=== PATIENT | female | born 1960 | race Caucasian/White ===

== ENCOUNTER → 2017-07-10 16:34 | Outpatient (REF) | payer MEDICARE, MEDICAID, SELFPAY ==
[2017-07-10 19:45] LABS: Basophils % 0.7 % (0.1-2.0); Eosinophils % 0.7 % (0.1-12.0); Hemoglobin 13.7 g/dL (12.2-16.2); Lymphocytes # 1.3 K/mm3 (0.7-4.5); Lymphocytes % 31.4 K/mm3 (10-50); Mean Corpuscular HGB Conc 31.9 g/dL (31.8-35.4); Mean Corpuscular Hemoglobin 30.2 pg (27.0-31.2); Mean Corpuscular Volume 94.5 fl (81-99); Mean Platelet Volume 9.6 fl (7.4-10.4); Monocytes # 0.3 K/mm3 (0.1-1.0); Monocytes % 7.8 % (1.7-9.3); Neutrophils # 2.5 K/mm3 (1.8-7.8); Neutrophils % 59.5 % (37.0-80.0); Platelet Count 232 K/mm3 (142-424); Red Blood Count 4.55 M/mm3 (4.20-5.40); Red Cell Distribution Width 12.7 % (11.5-17.5); White Blood Count 4.2 K/mm3 (4.8-10.8)
[2017-07-10 20:40] LABS: Alanine Aminotransferase 21 U/L (12-78); Albumin Level 3.9 gm/dL (3.4-5.0); Albumin/Globulin Ratio 1.2 (1.1-1.8); Alkaline Phosphatase 65 U/L (46-116); Anion Gap 15.1 mEq/L (5-15); Aspartate Amino Transferase 19 U/L (15-37); Bilirubin,Total 0.5 mg/dL (0.2-1.0); Blood Urea Nitrogen 21 mg/dL (7-18); Carbon Dioxide 28 mmol/L (21.0-32.0); Chloride 104 mmol/L (98-107); Cholesterol 255 mg/dL (140-200); Creatinine,Serum 0.79 mg/dL (0.55-1.02); Estimated Glomerular Filt Rate 75 ml/min (>60); GFR (African American) 90 ML/MIN (>60); Globulin 3.2 gm/dl (1.3-3.2); Glucose 74 mg/dL (74-106); HDL Cholesterol 85 mg/dL (29-89); LDL Cholesterol 148 mg/dL (0-130); Potassium 4.1 mmoL/L (3.5-5.1); Sodium 143 mmol/L (136-145); Thyroid Stimulating Hormone 0.68 uIU/ml (0.358-3.740); Total Protein,Serum 7.1 gm/dL (6.4-8.2); Triglycerides 112 mg/dL (30-200); VLDL Cholesterol 22 mg/dL (0-40)
== END ==
LOC: LAB 16:34
PROVIDERS: Visit Provider Physician Assistant
DX: E03.9 Hypothyroidism, unspecified (principal)
CPT/HCPCS: 80053; 80061; 84436; 84443; 85025

== ENCOUNTER → 2017-07-24 10:42 | Outpatient (POV) | payer MEDICARE, MEDICAID, SELFPAY ==
[2017-07-24 10:58] VITALS: BP 125/82; PULSE 85; RESP 18; TEMP 36.8; O2SAT 96; BMI 21.4
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
[2017-07-24 13:05] LABS: Amphetamine/Metha Screen,Urine Negative ng/mL (<1000); Barbiturates Screen,Urine Negative ng/mL (<200); Benzodiazepines Screen,Urine Negative ng/mL (200); Cannabinoid Screen,Urine Negative ng/mL (<50); Cocaine Screen,Urine Negative ng/g (<300); Methadone Screen,Urine Negative ng/mL (<300); Opiate Screen,Urine Negative ng/mL (<300); Phencyclidine Screen,Urine Negative ng/mL (<25)
--- NOTE | 2017-07-25 09:34 | PC.PHONENOTE ---
07/24/17-called in Rx for Zanaflex 4mg TID with 2 refills and Gabapentin 600mg TID with 2 refills to pt pharmacy per provider order
[2017-07-30 12:15] LABS: Oxycodone (GC/MS) >100 ng/mL (Cutoff=100)
[2017-07-31 06:27] LABS: Opiates Negative (Cutoff=100)
== END ==
PROVIDERS: Family Provider Physician Assistant; PCP Physician Assistant; Visit Provider Clinical Nurse Specialist Family Health
DX: M47.812 Spondylosis without myelopathy or radiculopathy, cervical region (principal); Z79.899 Other long term (current) drug therapy
CPT/HCPCS: 80305; 80361; 80365; 99212; G0480

== ENCOUNTER 2017-08-30 13:16 | Day surgery (SDC) | payer MEDICARE, MEDICAID, SELFPAY ==
[2017-08-30 13:28] VITALS: BP 147/91; PULSE 82; RESP 18; TEMP 36.4; O2SAT 99; BMI 21.8
[2017-08-30 13:40] VITALS: BP 140/85; PULSE 80; RESP 18
[2017-08-30 13:46] VITALS: BP 138/72; PULSE 65; RESP 18
[2017-08-30 13:48] VITALS: BP 141/96; PULSE 80; RESP 18; O2SAT 97
--- NOTE | 2017-08-30 13:52 | P.PCN_ITS ---
- Procedure Date: 08/30/17 Time: 13:50 Anesthesiologist:: Eber Liz MD Complications:: None Pre-procedure Diagnosis:: Right shoulder pain with degenerative osteoarthritis Post-procedure Diagnosis:: Same Indications for Procedure:: This patient is a pleasant 57-year-old white female who we are treating for neck pain with cervical radicular symptoms. She has increased right shoulder pain. She is tender over the AC joint. We will do a right shoulder intra- articular injection today. Procedure Details:: Right shoulder injection Informed consent was obtained and the risk and benefits of the procedure was explained to the patient. Patient was taken to the procedure room. The right shoulder was prepped using ChloraPrep. A 25-gauge needle was used we injected 10 mL bupivacaine 0.25% and Depo-Medrol 40 mg into the right shoulder. The patient tolerated the procedure well with no complications. Plan and Disposition:: We will follow-up with this patient in 2 weeks. Will reevaluate symptoms at that time.
== END 2017-08-30 13:50 | disposition home or self-care (01) ==
LOC: SC.PAINP 13:17
PROVIDERS: Family Provider Physician Assistant; PCP Physician Assistant; Visit Provider Anesthesiology
DX: M19.011 Primary osteoarthritis, right shoulder (principal)
CPT/HCPCS: 20610

== ENCOUNTER → 2017-09-17 09:42 | Outpatient (POV) | payer MEDICARE, MEDICAID, SELFPAY ==
[2017-09-17 10:02] VITALS: BP 128/86; PULSE 82; RESP 18; BMI 21.4
--- NOTE | 2017-09-17 10:14 | HMH.PAINSOAP ---
[facility] Pain Management SOAP Note Subjective:: Patient is a pleasant 57-year-old white female who presents today for follow-up after a right shoulder intra-articular injection. Patient is doing very well stating that her shoulder pain has dissipated 85%. Patient is currently being medically managed for pain secondary to degenerative disc disease of the cervical spine and cervical spondylosis. We are medically managing her with oxycodone 5 mg 1 p.o. 3 times daily and gabapentin 600 mg 1 p.o. 3 times daily. Patient states she is not having any side effects of these medications. Patient is having some episodes where he feels like she faints. Patient and I had a long discussion about potentially a cardiac workup. And is been a contact her PCP today. ROS General: no recent weight change, no fever, no sleep disturbances Respiratory: no cough, no shortness of air, no recurring pulmonary infections Cardiovascular/Peripheral Vascular: No chest pain, No palpitations, no edema, no shortness of breath. Gastrointestinal: no incontinence, normal bowel movements reported Genitourinary: no incontinence Musculoskeletal: Neck pain, right shoulder pain, low back pain, thoracic pain Psychiatric: normal mood/ affect Neurological: [denies weakness in extremities], [denies balance issues] Objective:: Physical Exam General: Alert and oriented x3, no acute distress, pleasant and cooperative, [on room air] Lungs: Resps E/U, Symmetrical chest expansion, Eyes: PERRL Musculoskeletal: Flexion and extension of cervical and lumbar spine somewhat guarded secondary to pain, deep tendon reflexes normal, strength in upper and lower extremities [5/5], antalgic gait noted Neurological: speech clear, bar attendant equal, no gross sensory deficits Assessment:: Myofascial pain, degenerative disc disease of the cervical spine, cervical spondylosis Plan:: Patient is due refills today we will refill her oxycodone 5 mg 1 p.o. 3 times daily and her gabapentin 600 mg 1 p.o. 3 times daily. Patient's UDS has been appropriate in the past. Patient's GLORY #[id number] reviewed and appropriate. I will follow-up with this patient in 3 months. 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 Dr. Liz has reviewed this chart and agrees with this plan of care. Patient has been prescribed a controlled substance after being counseled on the medication, medication safety, and possible side effects. GLORY report has been obtained and reviewed prior to prescription and found to be appropriate. Opioid contract was reviewed and signed by the patient, and that they have agreed to all of the terms set forth by our compliance program. This note was dictated using voice recognition software and may contain errors or omissions
== END ==
PROVIDERS: Family Provider Physician Assistant; PCP Physician Assistant; Visit Provider Clinical Nurse Specialist Family Health
DX: M47.812 Spondylosis without myelopathy or radiculopathy, cervical region (principal)
CPT/HCPCS: 99212

== ENCOUNTER → 2017-09-19 08:56 | Outpatient (CLI) | payer MEDICARE, MEDICAID, SELFPAY | PROVIDERS: PCP Physician Assistant; Visit Provider Physician Assistant | DX: R55 Syncope and collapse (principal) | CPT/HCPCS: 93225; 93226 ==

== ENCOUNTER 2017-10-24 09:42 | Observation (INO) ==
--- NOTE | 2017-10-24 10:15 | Emergency Department Note ---
ED Disposition Clinical Impression: Syncope and collapse Hypotension Qualifiers: Hypotension type: unspecified hypotension type Qualified Code(s): I95.9 - Hypotension, unspecified Fracture of distal fibula Qualifiers: Encounter type: initial encounter Fracture type: closed Fracture morphology: unspecified fracture morphology Laterality: left Qualified Code(s): S82.832A - Other fracture of upper and lower end of left fibula, initial encounter for closed fracture Nasal contusion Qualifiers: Encounter type: initial encounter Qualified Code(s): S00.33XA - Contusion of nose, initial encounter Disposition: Still a Patient Condition on Discharge: Fair Referrals: Lulu Noyola PA [Primary Care Provider] - - Critical Care Critical Care Time: Yes Attestation: On 10/24/17, the high probability of a clinically significant, sudden or life threatening deterioration of the following system(s) required my full and direct attention, intervention and personal management. The time I documented below is in addition to time spent performing reported procedures but includes the following listed in this critical care notation. Total Critical Care Time: 45 Vital system(s) involved:: Circulatory Failure My critical care processes included: Assessment & monitoring of V/S, Initial and Re-exams, Data Review/Interpretation, Coordinating Care, Medication Orders and management, Documentation Medical Decision Making - Daniele Inquiry Pt receiving controlled substance: No Vital Signs: 10/24/17 10:00 10/24/17 11:36 10/24/17 12:47 Temperature 98.0 F Temperature Source Oral Pulse Rate [Right Brachial] 110 H 78 70 Respiratory Rate 16 18 18 Blood Pressure [Left Arm] 70/55 83/55 95/60 Blood Pressure Mean [Left Arm] 60 64 71 Blood Pressure Source [Left Arm] Automatic Cuff Automatic Cuff Automatic Cuff Blood Pressure Position [Left Arm] Sitting Sitting 02 Sat by Pulse Oximetry 100 99 100 Oxygen Delivery Method Room Air Room Air Room Air 10/24/17 13:49 Temperature Temperature Source Pulse Rate [Right Brachial] 72 Respiratory Rate 18 Blood Pressure [Left Arm] 106/72 Blood Pressure Mean [Left Arm] 83 Blood Pressure Source [Left Arm] Automatic Cuff Blood Pressure Position [Left Arm] Sitting 02 Sat by Pulse Oximetry 100 Oxygen Delivery Method Room Air - Lab Data Lab Results 10/24/17 10:05: WBC 6.3, RBC 3.84 L, Hgb 11.9 L, Hct 35.9 L, MCV 93.4, MCH 30.8 , MCHC 33.0, RDW 13.3, Plt Count 211, MPV 8.5, Neut % (Auto) 68.9, Lymph % (Auto ) 22.0, Rhea % (Auto) 7.5, Eos % (Auto) 1.1, Baso % (Auto) 0.6, Neut # (Auto) 4.3, Lymph # (Auto) 1.4, Rhea # (Auto) 0.5, Eos # (Auto) 0.1, Baso # (Auto) 0.0 10/24/17 10:05: Sodium 139, Potassium 4.5, Chloride 103, Carbon Dioxide 27, Anion Gap 13.5, BUN 18, Creatinine 1.88 H, Estimated Creat Clear 34, Estimated GFR 27 L, Est GFR ( Amer) 33 L, Glucose 153 H, Calcium 8.0 L, Total Bilirubin 0.3, AST 43 H, ALT 39, Alkaline Phosphatase 113, Troponin I < 0.02, Total Protein 6.8, Albumin 3.3 L, Globulin 3.5 H, Albumin/Globulin Ratio 0.9 L, TSH 0.73, Free T4 Index 1.5 L, Thyroxine (T4) 5.2, T3 Uptake 29 L 10/24/17 11:50: Lactic Acid 1.1 10/24/17 11:50: Urine Color Yellow, Urine Appearance Sl cloudy, Urine pH 5.5, Ur Specific [place] >= 1.030, Urine Protein 1+, Urine Glucose (UA) Negative, Urine Ketones Trace, Urine Blood Negative, Urine Nitrate Negative, Urine Bilirubin Negative, Urine Urobilinogen 0.2, Ur Leukocyte Esterase 1+ A Result diagrams: 10/24/17 10:05 10/24/17 10:05 Orders (Tests/Meds): ED MEDICATIONS Discontinued Medications Generic Name Dose Route Start Last Admin Trade Name Freq PRN Reason Stop Dose Admin Sodium Chloride 1,000 mls @ 999 mls/hr 10/24/17 10:30 10/24/17 11:02 Sod Chlor 0.9% 1000ml Bag IV 10/24/17 11:30 999 mls/hr .Q1H1M PRITI Administration Sodium Chloride 500 mls @ 999 mls/hr 10/24/17 11:45 10/24/17 11:42 Sod Chlor 0.9% 1000ml Bag IV 10/24/17 12:15 999 mls/hr .Q31M PRITI Administration Sodium Chloride 1,000 ml 10/24/17 11:36 10/24/17 11:38 Sod Chlor 0.9% 1000ml Bag IV 10/24/17 11:37 1,000 ml BOLUS ONE Administration ORDERS Category Date Time Status UA [Urinalysis and Microscopic] Stat Lab 10/24/17 11:50 Results Blood Culture Stat Micro 10/24/17 12:00 Received Urine Culture Stat Micro 10/24/17 11:50 Received - Radiology Data #1 Image(s): Chest, Nasal Bones, Ankle Image Reviewed: Yes I discussed the image results w/the radiologist Chest: Negative Nasal Bones: Negative Left ankle: Nondisplaced distal fibular fracture - ECG Data Tracing #1 EKG interpreted by Dhiraj Childs MD: Rhythm: sinus Rate: 82 [place]: normal Ectopy: none Conduction: normal ST Segment Changes: none T Wave Changes: none Q Waves: none No evidence of acute ischemia or injury - Physician Consults Physician Consulted: Bess Time: 13:51 Reason -: Admission Comment/Response: I have discussed the case with Dr. Kellogg who agrees to admit the patient to the hospital. We discussed the patient's clinical information, including history, exam, laboratory and radiology results and ED course. Per hospital procedure, I will write temporary bridge inpatient orders on the patient. Specific orders requested by the admitting physician: Continue IV fluids. Consult cardiology. Carotid Dopplers. General Adult HPI - General Stated complaint: AO [id number] L ankle pain Time Seen by Provider: 10/24/17 10:05 - History of Present Illness HPI narrative: Past out last evening and injured her left ankle. She says that she passed out 3 times and injured her nose the first time as well. She has some bruising, swelling, and abrasion of her nose, but had no epistaxis. Has bruising and swelling and left ankle pain. Has been having episodes of syncope for more than 6 months. She has had extensive workup including a left heart cath and Holter monitor. She is seen Dr. Chilel and Dr. PARKS for cardiology evaluation. She says she is supposed to get a loop recorder. No cause for the syncope has been found. She says that episodes have been witnessed and she does not have seizure activity. She says that the episodes of syncope are generally without any warning, sometimes she will feel a little shaky beforehand. Almost always occurs at night and when upright. Does not always occur immediately after standing, sometimes after she has been standing for some time. Occasionally during the day and she is upright she will get lightheaded, but does not typically pass out. However, did pass out yesterday during the daytime when she went to vote. No new medications or changes in medication. C/O being thirsty. - Related Data Home Medications Medication Instructions Recorded Confirmed oxycodone 5 mg capsule 5 mg PO TID PRN cap 07/10/17 10/24/17 gabapentin 600 mg tablet 600 mg PO TID MDD pn 09/19/17 10/24/17 venlafaxine ER 75 mg 75 mg PO QHS 10/04/17 10/24/17 capsule,extended release 24 hr aspirin 81 mg tablet,delayed 81 mg PO DAILY tab 10/23/17 10/24/17 release atorvastatin 20 mg tablet 20 mg PO QHS tab 10/23/17 10/24/17 diclofenac sodium 75 mg 75 mg PO BID 10/23/17 10/24/17 tablet,delayed release estradiol 0.5 mg tablet 0.5 mg PO DAILY tab 10/23/17 10/24/17 Quetiapine Fumarate 100 mg PO QHS 10/24/17 10/24/17 Thyroid,Pork [Chinquapin Thyroid] 30 mg PO DAILY 10/24/17 10/24/17 Venlafaxine HCl [Effexor Xr] 75 mg PO QHS 10/24/17 10/24/17 Vortioxetine Hydrobromide 10 mg PO DAILY 10/24/17 10/24/17 [Trintellix] Allergies Allergy/AdvReac Type Severity Reaction Status Date / Time captopril Allergy Mild Verified 10/24/17 10:23 [facility] History I have reviewed the patient's past medical history: Yes Medical History: Reports:: Anxiety, Depression Denies:: Cancer, Diabetes Mellitus Type 1, Diabetes Mellitus Type 2, Internal Pacemaker, MRSA, Seizures Other Medical History: Reports: Hypothyroidism Comment: Hepatitis B, Bipolar disorder Other Surgeries: Yes: Cardiac Catheterization (10/08/17), Colonoscopy, , Hysterectomy-Total, Thyroidectomy. No: Pacemaker Amputation: No Fractures: No Comment: Carpal Tunnel, Heart cath x2, Bladder tack, Gallbladder - Social History Smoking Status: Never smoker Alcohol Intake: never Alcohol Intake Frequency:: a few times a week Substance Use Type: denies use Occupational Status: unemployed, disabled Housing: apartment Household Members: none - Psychiatric History Pschychiatric History:: Reports:: Anxiety, Depression Family Hx:: Coronary Artery Disease, Cancer ROS Obtained: Yes All systems reviewed & no additional complaints - Constitutional Constitutional: Denies fever(s) - Eyes Eyes: Denies change in vision - Cardiovascular Cardiovascular: Denies chest pain, Denies dyspnea, Reports fainting - Respiratory Respiratory: No cough, No dyspnea - Gastrointestinal Gastrointestingal: Denies: abdominal pain, diarrhea, vomiting Physical Exam - General General appearance: alert, in no apparent distress - Head Head exam: atraumatic, normocephalic, normal inspection - Eye Eye exam: Present: normal appearance, PERRL, EOMI - ENT ENT exam: Present: normal exam, normal oropharynx, mucous membranes moist, TM's normal bilaterally, normal external ear exam - Expanded ENT Exam Comment: Abrasion, edema, ecchymosis of nose. Tender. Nasal septum midline. No septal hematomas. No epistaxis. - Neck Neck exam: Present: normal inspection, full ROM, trachea midline. Absent: meningismus, lymphadenopathy - Chest Chest inspection: Present: normal inspection, symmetric chest wall rise. Absent : tenderness - Respiratory Respiratory exam: Present: normal lung sounds bilaterally. Absent: respiratory distress - Cardiovascular Cardiovascular exam: Present: regular rate, normal rhythm. Absent: JVD - Abdominal Exam Abdominal exam: Present: soft, normal bowel sounds. Absent: distention, tenderness, guarding - Extremities Exam Extremities exam: Present: normal inspection, full ROM, normal capillary refill. Absent: calf tenderness - Expanded Lower Extremity Exam Left Comment: Ecchymosis and mild edema left ankle. Diffuse. Distal neurovascular status and skin intact. Tender. - Back Exam Back exam: Present: normal inspection. Absent: tenderness - Neurological Exam Neurological exam: Present: alert, oriented X3, CN II-XII intact. Absent: motor sensory deficit - Psychiatric Psychiatric exam: Present: normal affect, normal mood - Skin Skin exam: Present: warm, dry, intact, normal color - Lymphatic Lymphatic Findings: no adenopathy Procedures - Miscellaneous Procedure Procedure Performed: Splint Application Performed by: DHIRAJ CHILDS Consent: Verbal consent obtained. Risks and benefits: risks, benefits and alternatives were discussed Consent given by: patient Patient identity confirmed: verbally with patient Splinting material: Orthoglass + SHARDA wrap Type of splint: Posterior short leg Location: Left Patient tolerance: Patient tolerated the procedure well with no immediate complications Neurovascular status intact with good sensation, capillary refill and movement before and after splint applied.
[2017-10-24 10:24] LABS: Basophils % 0.6 % (0.1-2.0); Eosinophils # 0.1 K/mm3 (0.0-0.4); Eosinophils % 1.1 % (0.1-12.0); Hematocrit 35.9 % (37.0-47.0); Hemoglobin 11.9 g/dL (12.2-16.2); Lymphocytes # 1.4 K/mm3 (0.7-4.5); Mean Corpuscular Hemoglobin 30.8 pg (27.0-31.2); Mean Corpuscular Volume 93.4 fl (81-99); Mean Platelet Volume 8.5 fl (7.4-10.4); Monocytes # 0.5 K/mm3 (0.1-1.0); Monocytes % 7.5 % (1.7-9.3); Neutrophils # 4.3 K/mm3 (1.8-7.8); Neutrophils % 68.9 % (37.0-80.0); Platelet Count 211 K/mm3 (142-424); Red Blood Count 3.84 M/mm3 (4.20-5.40); Red Cell Distribution Width 13.3 % (11.5-17.5); White Blood Count 6.3 K/mm3 (4.8-10.8)
[2017-10-24 10:44] LABS: Alanine Aminotransferase 39 U/L (12-78); Albumin Level 3.3 gm/dL (3.4-5.0); Albumin/Globulin Ratio 0.9 (1.1-1.8); Alkaline Phosphatase 113 U/L (46-116); Anion Gap 13.5 mEq/L (5-15); Aspartate Amino Transferase 43 U/L (15-37); Bilirubin,Total 0.3 mg/dL (0.2-1.0); Blood Urea Nitrogen 18 mg/dL (7-18); Carbon Dioxide 27 mmol/L (21.0-32.0); Chloride 103 mmol/L (98-107); Free Thyroxine Index 1.5 ug/dL (5.93-13.13); Globulin 3.5 gm/dl (1.3-3.2); Glucose 153 mg/dL (74-106); Potassium 4.5 mmoL/L (3.5-5.1); Sodium 139 mmol/L (136-145); T4 (Thyroxine) 5.2 ug/dl (4.7-13.3); Thyroid Stimulating Hormone 0.73 uIU/ml (0.358-3.740); Total Protein,Serum 6.8 gm/dL (6.4-8.2); Triiodothryronine (T3) Uptake 29 % (31-39)
[2017-10-24 13:45] LABS: Microscopic, Urine URINE MICROSCOPIC (MICROSCOPIC)
[2017-10-24 13:52] LABS: Appearance,Urine SL CLOUDY (Clear); Blood, Urine Negative (Negative); Color,Urine YELLOW (Yellow); Glucose,Urine (UA) Negative (Negative); Ketones,Urine TRACE (Negative); Leukocyte Esterase,Urine 1+ (Negative); PH,Urine 5.5 (5.0-8.5); Protein,Urine 1+ (Negative); Specific Gravity, Urine >= 1.030 (1.005-1.030); Urobilinogen,Urine 0.2 EU/dl (0.2)
[2017-10-24 14:09] LABS: Bilirubin,Urine Negative (Negative)
[2017-10-24 14:17] LABS: Bacteria,Urine 4+ /lpf; Squamous Epithelial Cell,Urine TNTC #/hpf (0-5); WBC,Urine 50-100 #/hpf (0-3)
--- NOTE | 2017-10-24 15:18 | Pharmacy Consult Notes ---
[facility] Pharmacy VTE Monitoring - Patient Demographics Admission date: 10/24/17 Report Date: 10/24/17 Time: 15:18 Allergies/Adverse Reactions: Patient Allergies captopril Allergy (Mild, Verified 10/24/17 10:23) Height: 1.55 m Weight: 65.771 kg Patient Problems: Current Active Problems (Last Reviewed 08/20/17 @ 15:21 by Ray Kahn) Hypotension (Acute) Syncope and collapse (Acute) Fracture of distal fibula (Acute) Nasal contusion (Acute) - VTE Risk Labs: VTE Related Lab Results Hgb 11.9 g/dL (12.2-16.2) L 10/24/17 10:05 Hct 35.9 % (37.0-47.0) L 10/24/17 10:05 Plt Count 211 K/mm3 (142-424) 10/24/17 10:05 BUN 18 mg/dL (7-18) 10/24/17 10:05 Creatinine 1.88 mg/dL (0.55-1.02) H 10/24/17 10:05 Estimated Creat Clear 34 mL/min (0-300) 10/24/17 10:05 - Prophylaxis Types of VTE Prophylaxis: TEDS Thigh High Location of Applied Device: Bilateral Lower Extremeties (CONSTANTINO HOSE ORDERED)
--- NOTE | 2017-10-24 16:08 | Carotid Imaging Report ---
"Cerebrovascular Exam Indications: 780.2 Syncope and collapse. IMPRESSIONS 1. The bilateral vertebral arteries are patent with normal antegrade flow. 2. Study suggests 20-49% stenosis involving the left internal carotid artery. 3. Study suggests 20-49% stenosis involving the right internal carotid artery. Carotid duplex study. Complete study and Doppler flow study including spectral analysis, color and bateman scale imaging. Height: Height: 154.9cm. Height: 61in. Weight: Weight: 65.8kg. Weight: 144.7lb. Body mass index: BMI: 27.4kg/m^2. Body surface area: BSA: 1.7m^2. Location: Vascular laboratory. Patient status: Outpatient. Tables: Arterial flow: + +--------+--------+ |Location |V sys |V ed | + +--------+--------+ |Right CCA - proximal|67.3cm/s|25.1cm/s| + +--------+--------+ |Right CCA - distal |57.2cm/s|23.3cm/s| + +--------+--------+ |Right ECA |49.3cm/s|--------| + +--------+--------+ |Right ICA - proximal|39.9cm/s|19.1cm/s| + +--------+--------+ |Right ICA - mid |58.8cm/s|27.7cm/s| + +--------+--------+ |Right ICA - distal |102cm/s |48.5cm/s| + +--------+--------+ |Right vertebral |48.4cm/s|--------| + +--------+--------+ |Left CCA - proximal |93.9cm/s|19.6cm/s| + +--------+--------+ |Left CCA - distal |45.4cm/s|24cm/s | + +--------+--------+ |Left ECA |80.5cm/s|--------| + +--------+--------+ |Left ICA - proximal |51cm/s |25.5cm/s| + +--------+--------+ |Left ICA - mid |89.4cm/s|42.2cm/s| + +--------+--------+ |Left ICA - distal |80cm/s |35.3cm/s| + +--------+--------+ |Left vertebral |49.3cm/s|--------| + +--------+--------+ Velocity ratios: + + + + + + | |Right, V sys|Right, V ed|Left, V sys|Left, V ed| + + + + + + |Max ICA/dist CCA|1.78 |2.08 |1.97 |1.76 | + + + + + + (Report amended ) Electronically signed by: Diego Kowalski [id number]"
--- NOTE | 2017-10-24 16:27 | Consult Report ---
*Admission Date: 10/24/17 *Chief complaint: Left ankle pain *History of present illness: Patient is a 57-year-old female admitted from the emergency department with history of syncopal attacks for the last 6 months. She says she passed out last evening and injured her left ankle when she fell. She was evaluated in the ER where x-rays showed a nondisplaced little mellitus fracture of the left ankle. She was placed in a short leg splint and was admitted for evaluation and management of syncopal attacks. She reports some bruising, swelling and pain over the left ankle. She also reports injuring her nose when she fell down. She has had extensive workup including a cardiac catheterization and Holter monitoring. She has seen Dr. Chilel and Dr. PARKS for cardiology evaluation. No cause for the syncope has been found so far. She says that episodes have been witnessed and she does not have seizure activity. She has past history of right ankle fracture. She reports no other injuries. No history of any distal tingling or numbness. Review of Systems - Constitutional Denies fever(s) - Eyes Denies change in vision - *Cardiovascular Reports fainting, Denies chest pain, Denies shortness of breath - *Respiratory Denies cough, Denies shortness of breath - *Gastrointestinal Denies abdominal pain, Denies difficulty swallowing, Denies nausea, Denies vomiting - *Neurologic Reports fainting [facility] History I have reviewed the patient's past medical history: Yes Medical History: Reports:: Anxiety, Cancer (skin), Depression Denies:: Diabetes Mellitus Type 1, Diabetes Mellitus Type 2, Internal Pacemaker, MRSA, Seizures Other Medical History: Reports: Hypothyroidism Other Surgeries: Yes: Cardiac Catheterization (10/08/17), Colonoscopy, , Hysterectomy-Total, Thyroidectomy. No: Pacemaker Amputation: No Fractures: No - *Social History Educational Level: Completed GED/General Educational Development Smoking Status: Never smoker Alcohol Intake: current Alcohol Intake Frequency:: a few times a month Substance Use Type: denies use Occupational Status: unemployed, disabled Housing: apartment Household Members: none - Psychiatric History Expresses thoughts of harming self/others: None Suicide Plan Description: No Plan Pschychiatric History:: Reports:: Anxiety, Depression *Family Hx:: Coronary Artery Disease, Cancer Meds Home Medications Medication Instructions Recorded Confirmed Type oxycodone 5 mg capsule 5 mg PO TID PRN cap 02/06/18 05/23/18 History gabapentin 600 mg tablet 600 mg PO TID MDD pn 09/19/17 10/24/17 History aspirin 81 mg tablet,delayed 81 mg PO DAILY tab 10/23/17 10/24/17 History release atorvastatin 20 mg tablet 20 mg PO QHS tab 10/23/17 10/24/17 History diclofenac sodium 75 mg 75 mg PO BID 10/23/17 10/24/17 History tablet,delayed release estradiol 0.5 mg tablet 0.5 mg PO DAILY tab 10/23/17 10/24/17 History Quetiapine Fumarate 100 mg PO QHS 10/24/17 10/24/17 History 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,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] 30 mg PO DAILY 10/24/17 10/24/17 History Venlafaxine HCl [Effexor Xr] 75 mg PO QHS 10/24/17 10/24/17 History Vortioxetine Hydrobromide 10 mg PO DAILY 10/24/17 10/24/17 History [Trintellix] Tizanidine HCl [Zanaflex 4mg 4 mg PO TID 10/25/17 10/25/17 History tablet] Allergies Allergy/AdvReac Type Severity Reaction Status Date / Time captopril Allergy Mild Verified 10/24/17 10:23 Exam Vital signs and Labs for Last 24 Hours: Temp Pulse Resp BP Pulse Ox 98.3 F 68 18 82/56 97 10/24/17 15:58 10/24/17 15:58 10/24/17 15:58 10/24/17 16:03 10/24/17 15:58 Laboratory Results - last 24 hr 10/24/17 10:05: WBC 6.3, RBC 3.84 L, Hgb 11.9 L, Hct 35.9 L, MCV 93.4, MCH 30.8 , MCHC 33.0, RDW 13.3, Plt Count 211, MPV 8.5, Neut % (Auto) 68.9, Lymph % (Auto ) 22.0, [place] % (Auto) 7.5, Eos % (Auto) 1.1, Baso % (Auto) 0.6, Neut # (Auto) 4.3, Lymph # (Auto) 1.4, [place] # (Auto) 0.5, Eos # (Auto) 0.1, Baso # (Auto) 0.0 10/24/17 10:05: Sodium 139, Potassium 4.5, Chloride 103, Carbon Dioxide 27, Anion Gap 13.5, BUN 18, Creatinine 1.88 H, Estimated Creat Clear 34, Estimated GFR 27 L, Est GFR ( Amer) 33 L, Glucose 153 H, Calcium 8.0 L, Total Bilirubin 0.3, AST 43 H, ALT 39, Alkaline Phosphatase 113, Troponin I < 0.02, Total Protein 6.8, Albumin 3.3 L, Globulin 3.5 H, Albumin/Globulin Ratio 0.9 L, TSH 0.73, Free T4 Index 1.5 L, Thyroxine (T4) 5.2, T3 Uptake 29 L 10/24/17 11:50: Lactic Acid 1.1 10/24/17 11:50: Urine Color Yellow, Urine Appearance Sl cloudy, Urine pH 5.5, Ur Specific [place] >= 1.030, Urine Protein 1+, Urine Glucose (UA) Negative, Urine Ketones Trace, Urine Blood Negative, Urine Nitrate Negative, Urine Bilirubin Negative, Urine Urobilinogen 0.2, Ur Leukocyte Esterase 1+ A, Urine RBC 5-10, Urine WBC 50-100, Ur Squamous Epith Cells Tntc, Urine Bacteria 4+ I & O for Last 24 hours: Intake & Output 10/22/17 10/23/17 10/24/17 10/25/17 11:59 11:59 11:59 11:59 Weight 145 lb 145 lb - Constitutional no acute distress - *Routine HEENT Exam Head: Present: normocephalic Eye: Present: EOMI, PERRL Comments: Ecchymosis/abrasion over the nose - *Routine Neck Exam Present: supple, full ROM - *Routine Respiratory Exam Present: CTA bilaterally - *Routine Cardiovascular Exam Present: RRR, Normal S1, Normal S2, JVD - *Routine Abdominal Exam Present: soft, normoactive bowel sounds. Absent: tenderness - *Routine Extremities Exam Comments: On examination of her left ankle, she is a well fitting short leg splint. On examination out of the splint, the skin is intact over the left ankle. There is ecchymosis, swelling and tenderness over the lateral malleolus. Nontender over the medial malleolus. No clinical deformity is noted. Attempted movements of the left ankle are painful and limited. She has full range of toe movements. Dorsalis pedis 2+. Capillary refill brisk. Sensation is intact light touch throughout. No signs of compartment syndrome noted. Thigh and calf are soft and nontender. No other acute injuries noted. Imaging: X-rays of her left ankle reviewed along with radiologist report. The x -rays show a nondisplaced little mellitus fracture in good alignment. The ankle mortise is stable and is nondisplaced. - *Routine Neurological Exam Present: alert, oriented X3, CN II-XII intact - Routine Psychiatric Exam Present: normal affect, cooperative Results - Labs Result Diagrams: 10/25/17 06:39 10/25/17 06:39 Labs: Abnormal lab results 10/24/17 10/24/17 10/24/17 Range/Units 10:05 10:05 11:50 RBC 3.84 L (4.20-5.40) M/mm3 Hgb 11.9 L (12.2-16.2) g/dL Hct 35.9 L (37.0-47.0) % Creatinine 1.88 H (0.55-1.02) mg/dL Estimated GFR 27 L (>60) ml/min Est GFR ( Amer) 33 L (>60) ML/MIN Glucose 153 H (74-106) mg/dL Calcium 8.0 L (8.5-10.1) mg/dL AST 43 H (15-37) U/L Albumin 3.3 L (3.4-5.0) gm/dL Globulin 3.5 H (1.3-3.2) gm/dl Albumin/Globulin Ratio 0.9 L (1.1-1.8) Free T4 Index 1.5 L (5.93-13.13) ug/dL T3 Uptake 29 L (31-39) % Ur Leukocyte Esterase 1+ A (Negative) H & H 10/24/17 Range/Units 10:05 Hgb 11.9 L (12.2-16.2) g/dL Hct 35.9 L (37.0-47.0) % All other labs normal. Assessment and Plan (1) Fracture of distal fibula Status: Acute Qualifiers: Encounter type: initial encounter Fracture type: closed Fracture morphology: unspecified fracture morphology Laterality: left Qualified Code( s): S82.832A - Other fracture of upper and lower end of left fibula, initial encounter for closed fracture Category: Medical Code(s): S82.839A - Other fracture of upper and lower end of unspecified fibula, initial encounter for closed fracture I reviewed the clinical and x-ray findings with the patient. Discussed the diagnosis, natural history and management options in detail. As the fracture is nondisplaced, have recommended nonsurgical management with rest, activity modification, icing, elevation, splinting and as needed pain medication. Advised her to mobilize nonweightbearing with crutches/walker as appropriate. I have reapplied the well-padded short leg splint. Encouraged her to keep the ankle elevated and mobilize the toes. From an orthopedic standpoint, the patient can be discharged home when medically appropriate. I would like to see her back in my office in about 1 week's time for application of a short leg cast. All her questions were answered and she verbalized good understanding.
--- NOTE | 2017-10-24 16:30 | Consult Report ---
History of Present Illness Consult date: 10/24/17 Chief complaint: Passing out Additional Medical History:: 1. Anxiety 2. History of ovarian cancer status post surgery 3. History of multiple surgeries including cholecystectomy 4. History of migraine headaches History of present illness: Past out last evening and injured her left ankle. She says that she passed out 3 times and injured her nose the first time as well. She has some bruising, swelling, and abrasion of her nose, but had no epistaxis. Has bruising and swelling and left ankle pain. Has been having episodes of syncope for more than 6 months. She has had extensive workup including a left heart cath and Holter monitor. She is seen Dr. Chilel and Dr. PARKS for cardiology evaluation. She says she is supposed to get a loop recorder. No cause for the syncope has been found. She says that episodes have been witnessed and she does not have seizure activity. She says that the episodes of syncope are generally without any warning, sometimes she will feel a little shaky beforehand. Almost always occurs at night and when upright. Does not always occur immediately after standing, sometimes after she has been standing for some time. Occasionally during the day and she is upright she will get lightheaded, but does not typically pass out. However, did pass out yesterday during the daytime when she went to vote. No new medications or changes in medication. C/O being thirsty. The above per Dr. Lombardo, ER physician. Cardiology consulted for evaluation and recommendations. Patient denies any episodes of chest pain, pressure or tightness associated with the episodes of passing it. She describes symptoms occurring at night when getting up to go to the bathroom. Patient does take oxycodone, gabapentin and quiet a pain in the evening and does relate drinking 2-3 alcoholic beverages daily. Recent cardiac cath showed only mild coronary artery disease of her LAD with normal left ventricular ejection fraction. Recent Holter monitor showed occasional PACs and PVCs with no correlating arrhythmias to her symptoms. Orthostatic blood pressure in the room was noted to show a drop in systolic pressure from 99 mm Hg while sitting to 83 mm Hg while standing with dizziness noted. Patient was scheduled for an implantable loop recorder later this week. [facility] History Medical History: Reports:: Anxiety, Cancer (skin), Depression Denies:: Diabetes Mellitus Type 1, Diabetes Mellitus Type 2, Internal Pacemaker, MRSA, Seizures Other Medical History: Reports: Hypothyroidism Other Surgeries: Yes: Cardiac Catheterization (10/08/17), Colonoscopy, , Hysterectomy-Total, Thyroidectomy. No: Pacemaker Amputation: No Fractures: No - *Social History Educational Level: Completed GED/General Educational Development Smoking Status: Never smoker Alcohol Intake: current Alcohol Intake Frequency:: a few times a month Substance Use Type: denies use Occupational Status: unemployed, disabled Housing: apartment Household Members: none - Psychiatric History Expresses thoughts of harming self/others: None Suicide Plan Description: No Plan Pschychiatric History:: Reports:: Anxiety, Depression *Family Hx:: Coronary Artery Disease, Cancer Meds Home Medications Medication Instructions Recorded Confirmed Type oxycodone 5 mg capsule 5 mg PO TID PRN cap 07/10/17 10/24/17 History gabapentin 600 mg tablet 600 mg PO TID MDD pn 09/19/17 10/24/17 History aspirin 81 mg tablet,delayed 81 mg PO DAILY tab 10/23/17 10/24/17 History release atorvastatin 20 mg tablet 20 mg PO QHS tab 10/23/17 10/24/17 History diclofenac sodium 75 mg 75 mg PO BID 10/23/17 10/24/17 History tablet,delayed release estradiol 0.5 mg tablet 0.5 mg PO DAILY tab 10/23/17 10/24/17 History Quetiapine Fumarate 100 mg PO QHS 10/24/17 10/24/17 History 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,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] 30 mg PO DAILY 10/24/17 10/24/17 History Venlafaxine HCl [Effexor Xr] 75 mg PO QHS 10/24/17 10/24/17 History Vortioxetine Hydrobromide 10 mg PO DAILY 10/24/17 10/24/17 History [Trintellix] Allergies Allergy/AdvReac Type Severity Reaction Status Date / Time captopril Allergy Mild Verified 10/24/17 10:23 Review of Systems - *Cardiovascular Reports chest pain, Denies shortness of breath Comments: Musculoskeletal chest wall pain reproducible with palpation - *Respiratory Denies cough - *Gastrointestinal Denies abdominal pain - *Musculoskeletal Reports joint pain - *Neurologic Reports fainting Exam Vital signs and Labs for Last 24 Hours: Temp Pulse Resp BP Pulse Ox 98.3 F 68 18 82/56 97 10/24/17 15:58 10/24/17 15:58 10/24/17 15:58 10/24/17 16:03 10/24/17 15:58 Laboratory Results - last 24 hr 10/24/17 10:05: WBC 6.3, RBC 3.84 L, Hgb 11.9 L, Hct 35.9 L, MCV 93.4, MCH 30.8 , MCHC 33.0, RDW 13.3, Plt Count 211, MPV 8.5, Neut % (Auto) 68.9, Lymph % (Auto ) 22.0, [place] % (Auto) 7.5, Eos % (Auto) 1.1, Baso % (Auto) 0.6, Neut # (Auto) 4.3, Lymph # (Auto) 1.4, [place] # (Auto) 0.5, Eos # (Auto) 0.1, Baso # (Auto) 0.0 10/24/17 10:05: Sodium 139, Potassium 4.5, Chloride 103, Carbon Dioxide 27, Anion Gap 13.5, BUN 18, Creatinine 1.88 H, Estimated Creat Clear 34, Estimated GFR 27 L, Est GFR ( Amer) 33 L, Glucose 153 H, Calcium 8.0 L, Total Bilirubin 0.3, AST 43 H, ALT 39, Alkaline Phosphatase 113, Troponin I < 0.02, Total Protein 6.8, Albumin 3.3 L, Globulin 3.5 H, Albumin/Globulin Ratio 0.9 L, TSH 0.73, Free T4 Index 1.5 L, Thyroxine (T4) 5.2, T3 Uptake 29 L 10/24/17 11:50: Lactic Acid 1.1 10/24/17 11:50: Urine Color Yellow, Urine Appearance Sl cloudy, Urine pH 5.5, Ur Specific [place] >= 1.030, Urine Protein 1+, Urine Glucose (UA) Negative, Urine Ketones Trace, Urine Blood Negative, Urine Nitrate Negative, Urine Bilirubin Negative, Urine Urobilinogen 0.2, Ur Leukocyte Esterase 1+ A, Urine RBC 5-10, Urine WBC 50-100, Ur Squamous Epith Cells Tntc, Urine Bacteria 4+ I & O for Last 24 hours: Intake & Output 10/22/17 10/23/17 10/24/17 10/25/17 11:59 11:59 11:59 11:59 Weight 145 lb 145 lb - Constitutional Comments: Pleasant white female in bed in no acute distress. - *Routine Neck Exam Absent: JVD, carotid bruit - *Routine Respiratory Exam Present: CTA bilaterally. Absent: rhonchi, wheezes - *Routine Cardiovascular Exam Present: RRR. Absent: murmur, gallop, rubs - *Routine Abdominal Exam Present: soft. Absent: tenderness - *Routine Extremities Exam Absent: edema Comments: Left foot/ankle in a soft cast - *Routine Neurological Exam Present: alert, oriented X3, moving all extremities Assessment and Plan (1) Fracture of distal fibula Current visit: Yes Status: Acute Qualifiers: Encounter type: initial encounter Fracture type: closed Fracture morphology: unspecified fracture morphology Laterality: left Qualified Code( s): S82.832A - Other fracture of upper and lower end of left fibula, initial encounter for closed fracture Category: Medical Code(s): S82.839A - Other fracture of upper and lower end of unspecified fibula, initial encounter for closed fracture (2) Hypotension Current visit: Yes Status: Acute Qualifiers: Hypotension type: unspecified hypotension type Qualified Code(s): I95.9 - Hypotension, unspecified Category: Medical Code(s): I95.9 - Hypotension, unspecified (3) Nasal contusion Current visit: Yes Status: Acute Qualifiers: Encounter type: initial encounter Qualified Code(s): S00.33XA - Contusion of nose, initial encounter Category: Medical Code(s): S00.33XA - Contusion of nose, initial encounter (4) Syncope and collapse Current visit: Yes Status: Acute Category: Medical Code(s): R55 - Syncope and collapse (5) Anxiety Current visit: No Status: Chronic Category: Medical Code(s): F41.9 - Anxiety disorder, unspecified (6) Depression Current visit: No Status: Chronic Qualifiers: Depression Type: major depressive disorder Major depression recurrence: single episode Active/Remission status: currently active Major depression episode severity: mild Qualified Code(s): F32.0 - Major depressive disorder, single episode, mild Category: Medical Code(s): F32.9 - Major depressive disorder, single episode, unspecified - Assessment and plan all Dx Assessment and Plan for all problems:: 1. Will monitor patient on telemetry for arrhythmias. 2. Patient has evidence of orthostatic hypotension which may be exacerbated in the evening by her medications and alcohol consumption. Recommend monitoring orthostatic vital signs while she is present here in the hospital. 3. Will reevaluate the need for the loop recorder pending above results. 4. Possible urinary tract infection, defer to primary care physician
[2017-10-25 07:12] LABS: Basophils % 0.4 % (0.1-2.0); Eosinophils # 0.1 K/mm3 (0.0-0.4); Eosinophils % 1.9 % (0.1-12.0); Hematocrit 32.7 % (37.0-47.0); Lymphocytes # 1.3 K/mm3 (0.7-4.5); Lymphocytes % 33.5 K/mm3 (10-50); Mean Corpuscular HGB Conc 32.7 g/dL (31.8-35.4); Mean Corpuscular Hemoglobin 30.4 pg (27.0-31.2); Mean Corpuscular Volume 92.9 fl (81-99); Mean Platelet Volume 8.9 fl (7.4-10.4); Monocytes # 0.3 K/mm3 (0.1-1.0); Monocytes % 8.7 % (1.7-9.3); Neutrophils # 2.2 K/mm3 (1.8-7.8); Neutrophils % 55.5 % (37.0-80.0); Platelet Count 168 K/mm3 (142-424); Red Blood Count 3.52 M/mm3 (4.20-5.40); Red Cell Distribution Width 13.3 % (11.5-17.5); White Blood Count 3.9 K/mm3 (4.8-10.8)
[2017-10-25 07:24] LABS: Hemoglobin 10.8 g/dL (12.2-16.2)
[2017-10-25 07:54] LABS: Anion Gap 7.4 mEq/L (5-15); Potassium 4.4 mmoL/L (3.5-5.1)
--- NOTE | 2017-10-25 10:19 | Progress Note ---
Subjective Date: 10/25/17 Time: 10:16 Principal diagnosis: Syncope Interval history: 57 yo WF in bed in NAD. Complains of pain in foot. Still with episodes of brief chest pain that are substernal and last only a couple of minutes. Pressing into the sternum helps relieve the symptoms. No episodes of syncope last evening and Telemetry is without abnormality. Orthostatic BP by myself did not reveal a drop in BP this AM with standing but pt did get dizzy without passing out. Telemetry showed only sinus rhythm without arrhythmias or pauses. Exam Vital signs and Labs for Last 24 Hours: Temp Pulse Resp BP Pulse Ox 98.6 F 90 20 138/93 98 10/25/17 08:00 10/25/17 08:00 10/25/17 08:00 10/25/17 08:00 10/25/17 08:00 Laboratory Results - last 24 hr 10/24/17 10:05: WBC 6.3, RBC 3.84 L, Hgb 11.9 L, Hct 35.9 L, MCV 93.4, MCH 30.8 , MCHC 33.0, RDW 13.3, Plt Count 211, MPV 8.5, Neut % (Auto) 68.9, Lymph % (Auto ) 22.0, [place] % (Auto) 7.5, Eos % (Auto) 1.1, Baso % (Auto) 0.6, Neut # (Auto) 4.3, Lymph # (Auto) 1.4, [place] # (Auto) 0.5, Eos # (Auto) 0.1, Baso # (Auto) 0.0 10/24/17 10:05: Sodium 139, Potassium 4.5, Chloride 103, Carbon Dioxide 27, Anion Gap 13.5, BUN 18, Creatinine 1.88 H, Estimated Creat Clear 34, Estimated GFR 27 L, Est GFR ( Amer) 33 L, Glucose 153 H, Calcium 8.0 L, Total Bilirubin 0.3, AST 43 H, ALT 39, Alkaline Phosphatase 113, Troponin I < 0.02, Total Protein 6.8, Albumin 3.3 L, Globulin 3.5 H, Albumin/Globulin Ratio 0.9 L, TSH 0.73, Free T4 Index 1.5 L, Thyroxine (T4) 5.2, T3 Uptake 29 L 10/24/17 11:50: Lactic Acid 1.1 10/24/17 11:50: Urine Color Yellow, Urine Appearance Sl cloudy, Urine pH 5.5, Ur Specific [place] >= 1.030, Urine Protein 1+, Urine Glucose (UA) Negative, Urine Ketones Trace, Urine Blood Negative, Urine Nitrate Negative, Urine Bilirubin Negative, Urine Urobilinogen 0.2, Ur Leukocyte Esterase 1+ A, Urine RBC 5-10, Urine WBC 50-100, Ur Squamous Epith Cells Tntc, Urine Bacteria 4+ 10/25/17 06:39: WBC 3.9 L D, RBC 3.52 L, Hgb 10.8 L, Hct 32.7 L, MCV 92.9, MCH 30.4, MCHC 32.7, RDW 13.3, Plt Count 168, MPV 8.9, Neut % (Auto) 55.5, Lymph % ( Auto) 33.5, [place] % (Auto) 8.7, Eos % (Auto) 1.9, Baso % (Auto) 0.4, Neut # (Auto ) 2.2, Lymph # (Auto) 1.3, [place] # (Auto) 0.3, Eos # (Auto) 0.1, Baso # (Auto) 0.0 10/25/17 06:39: Sodium 145, Potassium 4.4, Chloride 114 H, Carbon Dioxide 28, Anion Gap 7.4, BUN 10 D, Creatinine 0.96 D, Estimated Creat Clear 66, Estimated GFR 60, Est GFR ( Amer) 72 D, Glucose 75 D I & O for Last 24 hours: Intake & Output 10/22/17 10/23/17 10/24/17 10/25/17 11:59 11:59 11:59 11:59 Intake Total 981 / 981 Balance 981 / 981 Weight 145 lb 145 lb Microbiology Reports for the Last 24 Hours: Microbiology 10/24/17 11:50 Urine,Clean Catch Urine Culture - Preliminary - *Routine Respiratory Exam Present: CTA bilaterally - *Routine Cardiovascular Exam Present: RRR Progress Note: A&P (1) Fracture of distal fibula Status: Acute Current Visit: Yes (2) Hypotension Status: Acute Current Visit: Yes (3) Nasal contusion Status: Acute Current Visit: Yes (4) Syncope and collapse Status: Acute Current Visit: Yes (5) Anxiety Status: Chronic Current Visit: No (6) Depression Status: Chronic Current Visit: No Assessment and Plan for All Diagnoses:: Plan to proceed with ILR placement today due to episodes of drop syncope. Pt could be discharged home later today from cardiology standpoint.
[2017-10-25 11:51] VITALS: BP 152/94
--- NOTE | 2017-10-25 13:37 | Procedure Note ---
[facility] Loop Recorder Date: 10/25/17 Time: 12:00 Procedure Performed:: Implantation of loop recorder Indication:: Drop syncope Technique:: After informed consent obtained, 1% lidocaine with epinephrine was used to anesthetize the site along the left anterior aspect of the chest near the sternal border. Using the preformed scalpel, an incision was made and using the supplied preloaded apparatus, the loop recorder was placed subcutaneously without difficulty. Following the deployment of the loop recorder interrogation of the device was performed to ensure appropriate voltage was being detected. Once this was verified, Steri-Strips were placed over the incision and the patient was prepped to discharge home. Patient tolerated the procedure well with minimal discomfort. Impression:: Successful implantation of loop recorder Serial Number:: [id number] Plan:: Routine post op care
--- NOTE | 2017-10-25 15:22 | H&P/Discharge Summary ---
General - General Admission date:: 10/24/17 Discharge date: 10/25/17 *Admission Date: 10/24/17 *Chief complaint: syncope *History of present illness: 57-year-old female presents to the ER after past out last evening and injured her left ankle while voting. Patient reports that she passed out 3 times and injured her nose the first time as well. She has some bruising, swelling, and abrasion of her nose, but had no epistaxis. Has bruising and swelling and left ankle pain. Has been having episodes of syncope for more than 6 months. She has had extensive workup including a left heart cath and Holter monitor. She is seen Dr. Chilel and Dr. PARKS for cardiology evaluation. She says she is supposed to get a loop recorder. No cause for the syncope has been found. She says that episodes have been witnessed and she does not have seizure activity.She says that the episodes of syncope are generally without any warning , sometimes she will feel a little shaky beforehand. Patient denies any chest pain pressure or tightness associated to her syncopal episodes patient was admitted with cardiology consult and monitoring of telemetry. [facility] History I have reviewed the patient's past medical history: Yes Medical History: Reports:: Anxiety, Cancer (skin), Depression Denies:: Diabetes Mellitus Type 1, Diabetes Mellitus Type 2, Internal Pacemaker, MRSA, Seizures Other Medical History: Reports: Hypothyroidism Other Surgeries: Yes: Cardiac Catheterization (10/08/17), Colonoscopy, , Hysterectomy-Total, Thyroidectomy. No: Pacemaker Amputation: No Fractures: No - *Social History Educational Level: Completed GED/General Educational Development Smoking Status: Never smoker Alcohol Intake: current Alcohol Intake Frequency:: a few times a month Substance Use Type: denies use Occupational Status: unemployed, disabled Housing: apartment Household Members: none - Psychiatric History Expresses thoughts of harming self/others: None Suicide Plan Description: No Plan Pschychiatric History:: Reports:: Anxiety, Depression *Family Hx:: Coronary Artery Disease, Cancer Review of Systems - Review of Systems Review of systems:: pertinent systems reviewed and negative unless documented below - Constitutional Denies body ache(s), Denies fever(s), Denies headache(s) - Eyes Denies change in vision - ENT Denies change in voice - *Cardiovascular Denies chest pain at rest, Denies chest pain with activity, Denies shortness of breath - *Respiratory Denies chest congestion, Denies cough - *Gastrointestinal Denies change in bowel habits - *Genitourinary Denies abnormal periods - *Musculoskeletal Denies decreased muscle mass - Integumentary/Breasts Denies rash - *Neurologic Reports fainting, Denies abnormal hearing - Psychiatric Reports anxiety - Endocrine Denies flushing - Hematologic/Lymphatic Denies enlarged lymph nodes - Allergic/Immunologic Denies lip swelling Exam Vital signs and Labs for Last 24 Hours: Temp Pulse Resp BP Pulse Ox 98.7 F 80 18 152/94 97 10/25/17 11:47 10/25/17 11:47 10/25/17 11:47 10/25/17 11:47 10/25/17 11:47 Laboratory Results - last 24 hr 10/25/17 06:39: WBC 3.9 L D, RBC 3.52 L, Hgb 10.8 L, Hct 32.7 L, MCV 92.9, MCH 30.4, MCHC 32.7, RDW 13.3, Plt Count 168, MPV 8.9, Neut % (Auto) 55.5, Lymph % ( Auto) 33.5, Loving % (Auto) 8.7, Eos % (Auto) 1.9, Baso % (Auto) 0.4, Neut # (Auto ) 2.2, Lymph # (Auto) 1.3, Loving # (Auto) 0.3, Eos # (Auto) 0.1, Baso # (Auto) 0.0 10/25/17 06:39: Sodium 145, Potassium 4.4, Chloride 114 H, Carbon Dioxide 28, Anion Gap 7.4, BUN 10 D, Creatinine 0.96 D, Estimated Creat Clear 66, Estimated GFR 60, Est GFR ( Amer) 72 D, Glucose 75 D I & O for Last 24 hours: Intake & Output 10/23/17 10/24/17 10/25/17 10/26/17 11:59 11:59 11:59 11:59 Intake Total 981 / 981 Balance 981 / 981 Weight 145 lb 145 lb Microbiology Reports for the Last 24 Hours: Microbiology 10/24/17 11:50 Urine,Clean Catch Urine Culture - Preliminary - Constitutional no acute distress - *Routine HEENT Exam Head: Present: normocephalic Eye: Present: PERRL ENT: Present: mucous membranes moist - *Routine Respiratory Exam Present: CTA bilaterally - *Routine Cardiovascular Exam Present: RRR, Normal S1, Normal S2 - *Routine Abdominal Exam Present: soft, normoactive bowel sounds - *Routine Extremities Exam Present: full ROM - *Routine Skin Exam Present: intact - *Routine Neurological Exam Present: alert, oriented X3, CN II-XII intact - Routine Psychiatric Exam Present: normal affect, normal thought process Hospital Course Hospital Course: Cardiology consult Implantation of loop recorder Indication:: Drop syncope Technique:: After informed consent obtained, 1% lidocaine with epinephrine was used to anesthetize the site along the left anterior aspect of the chest near the sternal border. Using the preformed scalpel, an incision was made and using the supplied preloaded apparatus, the loop recorder was placed subcutaneously without difficulty. Following the deployment of the loop recorder interrogation of the device was performed to ensure appropriate voltage was being detected. Once this was verified, Steri-Strips were placed over the incision and the patient was prepped to discharge home. Patient tolerated the procedure well with minimal discomfort. Impression:: Successful implantation of loop recorder Carotid Doppler: 20-49% stenosis to the left and right internal carotid Results Labs on day of discharge: Labs from last 24 hours 10/25/17 10/25/17 06:39 06:39 WBC 3.9 L D RBC 3.52 L Hgb 10.8 L Hct 32.7 L MCV 92.9 MCH 30.4 MCHC 32.7 RDW 13.3 Plt Count 168 MPV 8.9 Neut % (Auto) 55.5 Lymph % (Auto) 33.5 Loving % (Auto) 8.7 Eos % (Auto) 1.9 Baso % (Auto) 0.4 Neut # (Auto) 2.2 Lymph # (Auto) 1.3 Loving # (Auto) 0.3 Eos # (Auto) 0.1 Baso # (Auto) 0.0 Sodium 145 Potassium 4.4 Chloride 114 H Carbon Dioxide 28 Anion Gap 7.4 BUN 10 D Creatinine 0.96 D Estimated Creat Clear 66 Estimated GFR 60 Est GFR ( Amer) 72 D Glucose 75 D Preliminary micro results at discharge 10/24/17 11:50 Urine Culture - Preliminary Urine,Clean Catch - Additional Comments Rounded with Dr. Kellogg all orders per Bess DS: Diagnosis - Discharge Diagnosis (1) Fracture of distal fibula Status: Acute (2) Hypotension Status: Acute (3) Nasal contusion Status: Acute (4) Syncope and collapse Status: Acute (5) Anxiety Status: Chronic (6) Depression Status: Chronic Discharge Medications Discharge Medications: Home Medications Medication Instructions Recorded Confirmed Type oxycodone 5 mg capsule 5 mg PO TID PRN cap 07/10/17 10/24/17 History gabapentin 600 mg tablet 600 mg PO TID MDD pn 09/19/17 10/24/17 History aspirin 81 mg tablet,delayed 81 mg PO DAILY tab 10/23/17 10/24/17 History release atorvastatin 20 mg tablet 20 mg PO QHS tab 10/23/17 10/24/17 History diclofenac sodium 75 mg 75 mg PO BID 10/23/17 10/24/17 History tablet,delayed release estradiol 0.5 mg tablet 0.5 mg PO DAILY tab 10/23/17 10/24/17 History Quetiapine Fumarate 100 mg PO QHS 10/24/17 10/24/17 History Thyroid,Pork [[employer] Thyroid] 30 mg PO DAILY 10/24/17 10/24/17 History Venlafaxine HCl [Effexor Xr] 75 mg PO QHS 10/24/17 10/24/17 History Vortioxetine Hydrobromide 10 mg PO DAILY 10/24/17 10/24/17 History [Trintellix] Tizanidine HCl [Zanaflex 4mg 4 mg PO TID 10/25/17 10/25/17 History tablet] Disposition Disposition: Home, Self-Care
--- NOTE | 2017-10-25 16:36 | Progress Note ---
Subjective Date: 10/25/17 Time: 15:30 Principal diagnosis: Fracture lateral malleolus, left ankle Interval history: Patient is lying down in bed. She reports some pain in her left ankle which is well controlled with medication. No history of any distal tingling or numbness. She says she had a cardiology procedure earlier today and is being discharged home. PN: Obj Ex Vital signs: Temp Pulse Resp BP Pulse Ox 98.7 F 90 18 152/94 97 10/25/17 11:47 10/25/17 12:00 10/25/17 11:47 10/25/17 11:47 10/25/17 11:47 - Constitutional no acute distress - Routine HEENT Exam Head: Present: normocephalic ENT: Present: mucous membranes moist - Routine Neck Exam Present: supple, full ROM - Routine Respiratory Exam Present: CTA bilaterally - Routine Cardiovascular Exam Present: RRR - Routine Abdominal Exam Present: soft. Absent: tenderness - Routine Extremities Exam Comments: On examination of her left ankle, she is in a well fitting short leg splint. She demonstrates good range of active toe movements. No stretch pain or any other signs of compartment syndrome noted. Capillary refill is brisk. Sensation is intact to light touch throughout. - Routine Skin Exam Present: intact - Routine Neurological Exam Present: alert, oriented X3 - Routine Psychiatric Exam Present: normal affect, cooperative Progress Note: A&P (1) Fracture of distal fibula Status: Acute Assessment and plan: Reviewed the findings and progress with the patient. She is in a well fitting short leg splint to her left ankle. Advised her to continue elevation, icing, active knee and toe mobilization, as needed pain medication and nonweightbearing mobilization. She is being discharged home today. I would like to see her for follow-up in my office in 1 week's time at which point we would apply a short leg cast. All her questions were answered and she verbalized a good understanding. Medical management as per Dr. Kellogg. (2) Hypotension Status: Acute (3) Nasal contusion Status: Acute (4) Syncope and collapse Status: Acute (5) Anxiety Status: Chronic (6) Depression Status: Chronic
== END 2017-10-25 17:10 | disposition home or self-care (01) ==
LOC: ER 09:42 → 2ND 09:42
PROVIDERS: ADMIT Emergency Medicine; ATTEND Emergency Medicine

== ENCOUNTER → 2017-11-02 11:20 | Outpatient (CLI) | payer MEDICARE, MEDICAID, SELFPAY ==
--- NOTE | 2017-11-02 11:23 | XR_ITS ---
XR knee RT 4V HISTORY: ITS.REASON: Right knee pain ORDERING PHYSICIAN: Jared Orta MD PATIENT AGE: 57 years COMPARISON: None FINDINGS: Weightbearing views are performed No fracture or dislocation. No lytic or blastic change. Normal mineralization. No significant arthritic changes evident. No other significant findings IMPRESSION: Negative Knee
--- NOTE | 2017-11-02 11:23 | XR_ITS ---
XR ankle LT min 3V HISTORY: Follow-up fracture ITS.REASON: fracture of distal fibula/ cast applied ORDERING PHYSICIAN: Jared Orta MD PATIENT AGE: 57 years COMPARISON: 10/24/2017 FINDINGS: Cast has been placed. There is good alignment of the distal fibular fracture is barely perceptible consistent with early healing. IMPRESSION: Good alignment healing distal fibular fracture
== END ==
PROVIDERS: PCP Physician Assistant; Visit Provider Orthopaedic Surgery
DX: S82.839A Other fracture of upper and lower end of unspecified fibula, initial encounter for closed fracture (principal)
CPT/HCPCS: 73564; 73610

== ENCOUNTER → 2017-11-09 09:48 | Outpatient (CLI) | payer MEDICARE, MEDICAID, SELFPAY ==
--- NOTE | 2017-11-09 09:51 | XR_ITS ---
XR ankle LT min 3V Ordering Physician: Jared Orta MD Patient Age: 57 years: Female HISTORY: ITS.REASON: 1 week fu from cast/ LT ankle fx TECHNIQUE: 3 views left ankle in cast COMPARISON : November 02, 2017 FINDINGS: Cast again evident.. There is good alignment of the distal fibular fracture is barely perceptible consistent with early healing and stable position. . Ankle mortise satisfactory IMPRESSION: Good alignment healing distal fibular fracture .
== END ==
PROVIDERS: PCP Physician Assistant; Visit Provider Orthopaedic Surgery
DX: S82.62XA Displaced fracture of lateral malleolus of left fibula, initial encounter for closed fracture (principal)
CPT/HCPCS: 73610

== ENCOUNTER → 2017-11-13 09:34 | Outpatient (CLI) | payer MEDICARE, MEDICAID, SELFPAY ==
--- NOTE | 2017-11-13 09:37 | XR_ITS ---
XR DEXA axial skeleton HISTORY: ITS.REASON: menoupause ORDERING PHYSICIAN: Ernie Markham MD PATIENT AGE: 57 years COMPARISON: None FINDINGS: The BMD measured at the right femoral neck is 0.852 g/cm squared with a T score of -1.3. This is considered Osteopenic according to the World Health Organization criteria. Fracture risk is Moderate. Treatment is advised. IMPRESSION: Osteopenia with moderate fracture risk. Recommend treatment and follow-up exam November 2019
== END ==
PROVIDERS: Family Provider Physician Assistant; PCP Physician Assistant; Visit Provider Obstetrics & Gynecology
DX: Z78.0 Asymptomatic menopausal state (principal)
CPT/HCPCS: 77080

== ENCOUNTER → 2017-12-07 09:41 | Outpatient (POV) | payer MEDICARE, MEDICAID, SELFPAY ==
--- NOTE | 2017-12-07 09:46 | XR_ITS ---
XR ankle LT min 3V HISTORY: Follow-up fracture ITS.REASON: OUT OF CAST ORDERING PHYSICIAN: Eber Liz MD PATIENT AGE: 57 years Comparison: 11/09/2017 FINDINGS: The cast has been removed. Fracture line of the lateral malleolus is less apparent consistent with healing fracture. No displacement. There is some minimal residual lucency laterally. IMPRESSION: Healing nondisplaced distal fibular fracture
[2017-12-07 10:41] VITALS: BP 141/88; PULSE 105; RESP 18; TEMP 36.6; O2SAT 98; BMI 18.6
--- NOTE | 2017-12-07 11:36 | P.CONS_ITS ---
[facility] Pain Management SOAP Note Subjective:: This patient is a pleasant 57-year-old white female who we are treating for neck pain with degenerative disc disease of cervical spine cervical spondylosis. Currently she is on oxycodone 5 mg 3 times a day gabapentin 600 mg 3 times a day. She is weaning down on her gabapentin. She would like to come off of her gabapentin. She was also like to come off of her Zanaflex. And I told her to take her oxycodone sparingly. If she does not need it 3 times a day she does not necessarily have to take it 3 times a day. Overall she is doing well. Pain score is a 4 out of 10 today. She has no side effects with her medication. Her Daniele and urine drug screen are all appropriate. [facility] #[id number]. Objective:: Alert and oriented ?3 no acute distress. Good range of motion of the cervical spine. Motor strength of the upper extremities is 5/5. There is no gross sensory deficit. Assessment:: Degenerative disc disease of the cervical spine with cervical radiculopathy symptoms and cervical spondylosis. Plan:: The patient would like to come down on some of her medications. We will wean her off of her gabapentin and off of her Zanaflex. She is also to take her oxycodone 5 mg 1 tablet 3 times a day as needed. We will give her 2 months worth of prescriptions. We will follow-up with her in 3 months. Again Daniele and urine drug screen are all appropriate. Patient does very well with her current medications.
== END ==
PROVIDERS: Family Provider Physician Assistant; PCP Physician Assistant; Visit Provider Anesthesiology
DX: M54.16 Radiculopathy, lumbar region (principal)
CPT/HCPCS: 99212; 73610

== ENCOUNTER → 2017-12-18 11:45 | Outpatient (CLI) | payer MEDICARE, MEDICAID, SELFPAY ==
[2017-12-18 13:02] LABS: Anion Gap 10.7 mEq/L (5-15); Blood Urea Nitrogen 18 mg/dL (7-18); Calcium 9.1 mg/dL (8.5-10.1); Carbon Dioxide 30 mmol/L (21.0-32.0); Chloride 106 mmol/L (98-107); Creatinine,Serum 0.76 mg/dL (0.55-1.02); Estimated Glomerular Filt Rate 78 ml/min (>60); GFR (African American) 95 ML/MIN (>60); Glucose 95 mg/dL (74-106); Potassium 4.7 mmoL/L (3.5-5.1); Sodium 142 mmol/L (136-145)
== END ==
PROVIDERS: Visit Provider Physician Assistant
DX: K76.9 Liver disease, unspecified (principal)
CPT/HCPCS: 36415; 80048

== ENCOUNTER → 2017-12-19 08:03 | Outpatient (CLI) | payer MEDICARE, MEDICAID, SELFPAY ==
--- NOTE | 2017-12-19 08:26 | CT_ITS ---
CT abdomen wo/w con INDICATION: ITS.REASON: liver lesion ORDERING PHYSICIAN: Emery Kellogg MD PATIENT AGE: 57 years COMPARISON: CT a chest which includes upper abdomen 11/30/2017 PROCEDURE: Oral Contrast: None IV Contrast: 75 cc [id number] at 3 cc a second followed x 40 mL normal saline . Precontrast scanning followed x 30 s, 60second and & 5 minute delayed scanning through the liver-Liver protocol TECHNIQUE: Axial images are obtained without contrast. Sagittal and coronal reformatted images are reviewed as well. All CT scans at the facility use one or more dose reduction, viz: automated exposure control; ma/kV adjustment per patient size (including targeted exams where dose is matched to indication; i.e. head); or iterative reconstruction technique. FINDINGS: Lung bases are clear.. Small 5.5 mm nodule at periphery of the right lower lobe again seen as noted on recent CT chest. Smaller 3 mm nodule peripherally the right lung axial image 3 right lower lobe also noted pleural-based. Small calcified granuloma posterior left lower lobe 5 mm size. No pericardial effusion. Liver. . The early arterial phase images show multiple areas enhancement. Some enhancing focal areas; as well as more regional enhancement. Surprisingly do not see mass effect. These abnormalities Throughout the posterior right lobe most evident along its medial aspect Dome of liver:. Axial slice 15-13. There is a 9 mm focal intensity enhancing nodule surrounded x 3 cm wide region of subtle enhancement just above it Axial slice 31-32.: Posterior right lobe Again note Intense enhancing 11 mm nodule, at the inferior aspect of a 2.2 cm area of mild enhancement. Nicely seen on coronal image 41. As well Along the anterior medial margin the right lobe more anteriorly. Axial slice 34 . There is an 8 mm nodule of intense enhancement . With only very subtle subtle wispy enhancement along its inferior margin. . Medial right lobe inferiorly. There are several very small foci of in intense enhancement along the medial margin of the lower lobe of liver. (Axial image 35). This is associated with 3.5 cm region of mild enhancement about this region. Finally there is a small focus of enhancement at the posterior tip of right lobe axial image 41 Finally a very tiny small subtle enhancing foci present the medial aspect posterior right lobe axial image 23. All these areas become less evident on the portal venous phase and become isodense for the most part on the less evident on the delayed image set.. (Classically neoplasms would tend to become more hypodense on the delayed images due to washout where as hemangiomas contrast lingers resulting an isodense appearance with adjacent liver tissue) . I would note that there is lack of mass effect the site of fairly extensive involvement throughout the medial right lobe inferiorly as seen on today's study as well as the previous CT chest with contrast. With slightly different timing. Early arterial enhancing lesions include both benign and malignant conditions. These can conceivably reflect atypical hemangiomas with some early nodular enhancement. A would recommend MR with and without contrast to further evaluate as it can be helpful in further discerning hemangiomas as well as more significant lesions Benign early enhancing lesions include liver hemangioma. Also adenoma and focal nodular hyperplasia can show early enhancement.. Although I would tend to favor a atypical hemangioma in this case I cannot exclude pelvic early enhancing malignant multifocal lesions. This list would include multiple hypervascular metastatic lesions as well asmultifocal hepatocellular carcinoma.. Hepatic carcinoid is also included in the differential. Although difficult to totally exclude the latter en
== END ==
PROVIDERS: Family Provider Physician Assistant; PCP Physician Assistant; Visit Provider Emergency Medicine
DX: K76.9 Liver disease, unspecified (principal)
CPT/HCPCS: 74170; Q9967

== ENCOUNTER → 2018-01-01 08:14 | Outpatient (CLI) | payer MEDICARE, MEDICAID, SELFPAY ==
--- NOTE | 2018-01-01 08:20 | MR_ITS ---
MR abdomen wo/w con HISTORY: Multiple liver lesions, follow-up abnormal abdomen CT ITS.REASON: abnormal CT abd ORDERING PHYSICIAN: MARK Downey PATIENT AGE: 57 years Comparison: 12/19/2017 TECHNIQUE: Standard multiplanar multiecho sequences are performed without and with gadolinium enhancement . FINDINGS: There are multiple enhancing lesions of the liver corresponding to the abnormalities noted on the CT scan. In the hepatic dome there is an 8 mm nodule, right hepatic lobe posteriorly 8 mm nodule, right hepatic lobe posteriorly and medially 10 mm nodule, 6 mm nodule at the region of the gallbladder fossa, 6 mm nodule right hepatic lobe medially and inferiorly within adjacent 4 mm nodule. These correspond to the abnormalities noted on the CT scan. These lesions show increased diffusion signal and are hypointense on T1 and hyperintense on T2. These demonstrate intense initial contrast enhancement and show persistent enhancement on the 5 minute delayed images. These may represent an atypical variant of hemangioma known as a flash filling hepatic venous malformation. These demonstrate similar characteristics on the CT scan. No new nodules are evident. These do not have typical imaging characteristics for hepatic adenomas or focal nodular hyperplasia. One would expect delayed washout also for hepatic metastasis and hepatocellular carcinoma. Those entities however are included in the differential diagnosis. IMPRESSION: Multiple intensely enhancing liver lesions as described above and on the recent CT scan have an atypical contrast enhancement pattern with early enhancement and persistent delayed enhancement and may represent a variant of hepatic hemangiomas/flash filling of hepatic venous malformations. The differential diagnosis does include hypervascular metastasis as well as multifocal hepatocellular carcinoma, hepatic adenomas, and focal nodular hyperplasia. These entities are felt to be less likely. Follow-up will be needed to confirm stability. This can be performed with CT without and with contrast
== END ==
PROVIDERS: Family Provider Physician Assistant; PCP Physician Assistant; Visit Provider Physician Assistant
DX: K76.9 Liver disease, unspecified (principal)
CPT/HCPCS: 74183; A9576

== ENCOUNTER → 2018-01-14 14:54 | Outpatient (POV) | payer MEDICARE, MEDICAID, SELFPAY ==
[2018-01-14 16:31] LABS: Basophils % 0.4 % (0.1-2.0); Eosinophils # 0.1 K/mm3 (0.0-0.4); Eosinophils % 0.8 % (0.1-12.0); Hematocrit 38.2 % (37.0-47.0); Hemoglobin 12.3 g/dL (12.2-16.2); Lymphocytes # 1.5 K/mm3 (0.7-4.5); Lymphocytes % 25.9 K/mm3 (10-50); Mean Corpuscular HGB Conc 32.3 g/dL (31.8-35.4); Mean Platelet Volume 8.3 fl (7.4-10.4); Monocytes # 0.4 K/mm3 (0.1-1.0); Monocytes % 7.6 % (1.7-9.3); Neutrophils # 3.7 K/mm3 (1.8-7.8); Neutrophils % 65.3 % (37.0-80.0); Platelet Count 209 K/mm3 (142-424); Red Blood Count 4.11 M/mm3 (4.20-5.40); Red Cell Distribution Width 12.6 % (11.5-17.5); White Blood Count 5.6 K/mm3 (4.8-10.8)
[2018-01-14 17:16] LABS: Alanine Aminotransferase 17 U/L (12-78); Albumin Level 3.3 gm/dL (3.4-5.0); Alkaline Phosphatase 71 U/L (46-116); Anion Gap 11.6 mEq/L (5-15); Aspartate Amino Transferase 11 U/L (15-37); Bilirubin,Total 0.2 mg/dL (0.2-1.0); Blood Urea Nitrogen 23 mg/dL (7-18); Calcium 8.8 mg/dL (8.5-10.1); Carbon Dioxide 32 mmol/L (21.0-32.0); Chloride 104 mmol/L (98-107); Creatinine,Serum 0.88 mg/dL (0.55-1.02); Estimated Glomerular Filt Rate 66 ml/min (>60); GFR (African American) 80 ML/MIN (>60); Globulin 3.2 gm/dl (1.3-3.2); Glucose 95 mg/dL (74-106); Potassium 4.6 mmoL/L (3.5-5.1); Sodium 143 mmol/L (136-145); Total Protein,Serum 6.5 gm/dL (6.4-8.2)
[2018-01-16 08:46] LABS: AFP, Tumor Marker 4.8 ng/mL (0.0-8.3)
== END ==
PROVIDERS: Family Provider Physician Assistant; PCP Physician Assistant; Visit Provider Nurse Practitioner Acute Care
DX: R93.2 Abnormal findings on diagnostic imaging of liver and biliary tract (principal); Z79.899 Other long term (current) drug therapy
CPT/HCPCS: 36415; 80053; 82105; 85025

== ENCOUNTER 2018-02-03 08:25 | Observation (INO) ==
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
[2018-02-03 09:02] LABS: Basophils % 0.4 % (0.1-2.0); Eosinophils % 0.6 % (0.1-12.0); Hemoglobin 13.5 g/dL (12.2-16.2); Lymphocytes # 1.6 K/mm3 (0.7-4.5); Lymphocytes % 25.5 K/mm3 (10-50); Mean Corpuscular HGB Conc 32.9 g/dL (31.8-35.4); Mean Corpuscular Volume 91.1 fl (81-99); Mean Platelet Volume 8.4 fl (7.4-10.4); Monocytes # 0.5 K/mm3 (0.1-1.0); Monocytes % 8.2 % (1.7-9.3); Neutrophils % 65.4 % (37.0-80.0); Platelet Count 230 K/mm3 (142-424); Red Blood Count 4.51 M/mm3 (4.20-5.40); Red Cell Distribution Width 12.4 % (11.5-17.5); White Blood Count 6.1 K/mm3 (4.8-10.8)
[2018-02-03 09:24] LABS: Anion Gap 6.1 mEq/L (5-15); Bilirubin,Total 0.5 mg/dL (0.2-1.0); Blood Urea Nitrogen 11 mg/dL (7-18); Calcium 8.6 mg/dL (8.5-10.1); Carbon Dioxide 33 mmol/L (21.0-32.0); Chloride 102 mmol/L (98-107); Creatine Kinase 47 U/L (26-192); Glucose 84 mg/dL (74-106); Potassium 3.5 mmoL/L (3.5-5.1); Sodium 141 mmol/L (136-145)
[2018-02-03 09:25] LABS: Alanine Aminotransferase 17 U/L (12-78); Albumin Level 3.4 gm/dL (3.4-5.0); Albumin/Globulin Ratio 0.9 (1.1-1.8); Alkaline Phosphatase 64 U/L (46-116); Aspartate Amino Transferase 16 U/L (15-37); Globulin 3.7 gm/dl (1.3-3.2); Total Protein,Serum 7.1 gm/dL (6.4-8.2)
[2018-02-03 10:05] LABS: Free T4 (Free Thyroxine) 0.64 ng/dl (0.76-1.46); Thyroid Stimulating Hormone 2.39 uIU/ml (0.358-3.740)
[2018-02-03 10:17] LABS: ABG Base Excess 2.4 mmol/L (-2.4-2.3); ABG Oxygen Saturation 96 % (90-100); ABG PCO2 43.3 mmhg (35.0-45.0); ABG PH 7.41 mmol/L (7.35-7.45); ABG PO2 81.7 mmhg (80-100); ABG TCO2 28.3 mmhg (23-27)
[2018-02-03 10:20] LABS: Allen's Test Acceptable; Oxygen room air %
[2018-02-03 10:31] LABS: Appearance,Urine SL CLOUDY (Clear); Blood, Urine Negative (Negative); Color,Urine YELLOW (Yellow); Glucose,Urine (UA) Negative (Negative); Ketones,Urine Negative (Negative); Leukocyte Esterase,Urine 3+ (Negative); PH,Urine 8.5 (5.0-8.5); Protein,Urine TRACE (Negative); Specific Gravity, Urine 1.015 (1.005-1.030); Urobilinogen,Urine 0.2 EU/dl (0.2)
[2018-02-03 10:33] LABS: Microscopic, Urine URINE MICROSCOPIC (MICROSCOPIC)
[2018-02-03 10:38] LABS: Amphetamine/Metha Screen,Urine Negative ng/mL (<1000); Barbiturates Screen,Urine Negative ng/mL (<200); Benzodiazepines Screen,Urine Negative ng/mL (<200); Cannabinoid Screen,Urine Negative ng/mL (<50); Cocaine Screen,Urine Negative ng/mL (<300); Methadone Screen,Urine Negative ng/mL (<300); Opiate Screen,Urine Negative ng/mL (<300); Phencyclidine Screen,Urine Negative ng/mL (<25)
[2018-02-03 10:39] LABS: Bilirubin,Urine Negative (Negative)
[2018-02-03 10:40] LABS: Bacteria,Urine 4+ /lpf; WBC,Urine 20-50 #/hpf (0-3)
--- NOTE | 2018-02-03 14:27 | Pharmacy Consult Notes ---
[facility] Pharmacy VTE Monitoring - Patient Demographics Admission date: 02/03/18 Report Date: 02/03/18 Time: 14:27 Allergies/Adverse Reactions: Patient Allergies captopril Allergy (Mild, Verified 12/12/17 12:58) Height: 1.63 m Weight: 52.39 kg Patient Problems: Current Active Problems (Last Reviewed 08/20/17 @ 15:21 by Ray Kahn) Non-compliance (Acute) UTI (urinary tract infection) (Acute) Paroxysmal SVT (supraventricular tachycardia) (Acute) Cervical radiculopathy due to degenerative joint disease of spine (Acute) Left ankle strain (Acute) Liver lesion (Acute) Syncope (Chronic) Hypothyroidism (Chronic) - VTE Risk Labs: VTE Related Lab Results Hgb 13.5 g/dL (12.2-16.2) 02/03/18 08:53 Hct 41.0 % (37.0-47.0) 02/03/18 08:53 Plt Count 230 K/mm3 (142-424) 02/03/18 08:53 BUN 11 mg/dL (7-18) 02/03/18 08:53 Creatinine 1.07 mg/dL (0.55-1.02) H 02/03/18 08:53 Estimated Creat Clear 49 mL/min (0-300) 02/03/18 08:53 Was VTE Risk Assessment Performed: Yes VTE Score: 2 VTE Risk Level: Low Risk - Prophylaxis Types of VTE Prophylaxis: TEDS Knee High (CONSTANTINO HOSE ORDERED)
[2018-02-04 05:52] LABS: Basophils % 0.5 % (0.1-2.0); Eosinophils # 0.1 K/mm3 (0.0-0.4); Eosinophils % 2.5 % (0.1-12.0); Hematocrit 36.8 % (37.0-47.0); Lymphocytes # 1.3 K/mm3 (0.7-4.5); Mean Corpuscular Hemoglobin 29.5 pg (27.0-31.2); Mean Corpuscular Volume 92.1 fl (81-99); Mean Platelet Volume 9.2 fl (7.4-10.4); Monocytes # 0.3 K/mm3 (0.1-1.0); Monocytes % 10.5 % (1.7-9.3); Neutrophils # 1.3 K/mm3 (1.8-7.8); Neutrophils % 42.5 % (37.0-80.0); Platelet Count 184 K/mm3 (142-424); Red Blood Count 3.99 M/mm3 (4.20-5.40); Red Cell Distribution Width 12.4 % (11.5-17.5)
[2018-02-04 05:53] LABS: Hemoglobin 11.8 g/dL (12.2-16.2)
[2018-02-04 06:06] LABS: Anion Gap 9.8 mEq/L (5-15); Potassium 3.8 mmoL/L (3.5-5.1)
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
== END 2018-02-04 14:00 | disposition home or self-care (01) ==
LOC: 2ND 08:25 → ER 08:25 → 2ND 12:33
PROVIDERS: ADMIT Internal Medicine Adolescent Medicine; ATTEND Emergency Medicine
CPT/HCPCS: 36415; 70450; 70486; 71020; 71046; 71275; 72070; 72110; 72125; 72170; 73610; 73630; 80048; 80053; 80061; 80305; 81001; 82550; 82553; 82803; 83735; 83880; 84439; 84443; 84484; 85025; 85378; 87086; 93005; 96365; 96366; 99285; G0378; Q9967

== ENCOUNTER → 2018-03-04 09:45 | Outpatient (POV) | payer MEDICARE, MEDICAID, SELFPAY ==
[2018-03-04 09:55] VITALS: BP 129/89; PULSE 90; RESP 18; O2SAT 98; BMI 20.3
--- NOTE | 2018-03-04 10:09 | HMH.PAINSOAP ---
[facility] Pain Management SOAP Note Subjective:: Patient is a pleasant 58-year-old white female who presents today for medication refills. We are currently treating her for degenerative disc disease of the cervical spine with cervical radiculopathy symptoms and cervical spondylosis. Patient is currently on oxycodone 5 mg 3 times daily. Number pain of 6 out of 10 today. Patient denies side effects to her medication. Patient's GLORY #[id number] reviewed and appropriate. Patient will go for urine drug screen today. Patient is currently waiting from in regards to lesions that they found on her liver. Patient has weaned off her gabapentin and Zanaflex and states that she is in more pain. ROS General: no recent weight change, no fever, no sleep disturbances Respiratory: no cough, no shortness of air, no recurring pulmonary infections Cardiovascular/Peripheral Vascular: No chest pain, No palpitations, no edema, no shortness of breath. Gastrointestinal: no incontinence, normal bowel movements reported Genitourinary: no incontinence Musculoskeletal: Neck pain Psychiatric: normal mood/ affect, Neurological: [denies weakness in extremities], [denies balance issues] Objective:: Physical Exam General: Alert and oriented x3, no acute distress, pleasant and cooperative, [on room air] Lungs: Resps E/U, Symmetrical chest expansion, Eyes: PERRL Musculoskeletal: Flexion and extension of cervical spine somewhat guarded secondary to pain, deep tendon reflexes normal, strength in upper and lower extremities [5/5], slightly antalgic gait noted Neurological: speech clear, dope pourer equal, no gross sensory deficits Assessment:: Degenerative disc disease of the cervical spine with some radiculopathy symptoms and cervical spondylosis Plan:: We will refill the patient's oxycodone 5 mg 1 tab p.o. 3 times daily and start her on Elavil 25 mg at bedtime. I will follow-up with the patient in 3 months. Patient's been instructed to call the office if she has any issues prior to that. Dr. Liz is reviewed this chart and agrees with this plan of care. Patient has been prescribed a controlled substance after being counseled on the medication, medication safety, and possible side effects. GLORY report has been obtained and reviewed prior to prescription and found to be appropriate. Opioid contract was reviewed and signed by the patient, and that they have agreed to all of the terms set forth by our compliance program. This note was dictated using voice recognition software and may contain errors or omissions
--- NOTE | 2018-03-04 10:12 | P.CONS_ITS ---
[facility] Pain Management SOAP Note Subjective:: Patient is a pleasant 58-year-old white female who presents today for medication refills. We are currently treating her for degenerative disc disease of the cervical spine with cervical radiculopathy symptoms and cervical spondylosis. Patient is currently on oxycodone 5 mg 3 times daily. Number pain of 6 out of 10 today. Patient denies side effects to her medication. Patient's GLORY #[id number] reviewed and appropriate. Patient will go for urine drug screen today. Patient is currently waiting from in regards to lesions that they found on her liver. Patient has weaned off her gabapentin and Zanaflex and states that she is in more pain. ROS General: no recent weight change, no fever, no sleep disturbances Respiratory: no cough, no shortness of air, no recurring pulmonary infections Cardiovascular/Peripheral Vascular: No chest pain, No palpitations, no edema, no shortness of breath. Gastrointestinal: no incontinence, normal bowel movements reported Genitourinary: no incontinence Musculoskeletal: Neck pain Psychiatric: normal mood/ affect, Neurological: [denies weakness in extremities], [denies balance issues] Objective:: Physical Exam General: Alert and oriented x3, no acute distress, pleasant and cooperative, [on room air] Lungs: Resps E/U, Symmetrical chest expansion, Eyes: PERRL Musculoskeletal: Flexion and extension of cervical spine somewhat guarded secondary to pain, deep tendon reflexes normal, strength in upper and lower extremities [5/5], slightly antalgic gait noted Neurological: speech clear, apparel embroidery digitizer equal, no gross sensory deficits Assessment:: Degenerative disc disease of the cervical spine with some radiculopathy symptoms and cervical spondylosis Plan:: We will refill the patient's oxycodone 5 mg 1 tab p.o. 3 times daily and start her on Elavil 25 mg at bedtime. I will follow-up with the patient in 3 months. Patient's been instructed to call the office if she has any issues prior to that. Dr. Liz is reviewed this chart and agrees with this plan of care. Patient has been prescribed a controlled substance after being counseled on the medication, medication safety, and possible side effects. GLORY report has been obtained and reviewed prior to prescription and found to be appropriate. Opioid contract was reviewed and signed by the patient, and that they have agreed to all of the terms set forth by our compliance program. This note was dictated using voice recognition software and may contain errors or omissions
[2018-03-04 11:08] LABS: Amphetamine/Metha Screen,Urine Negative ng/mL (<1000); Barbiturates Screen,Urine Negative ng/mL (<200); Benzodiazepines Screen,Urine Negative ng/mL (<200); Cannabinoid Screen,Urine Negative ng/mL (<50); Cocaine Screen,Urine Negative ng/mL (<300); Methadone Screen,Urine Negative ng/mL (<300); Opiate Screen,Urine Negative ng/mL (<300); Phencyclidine Screen,Urine Negative ng/mL (<25)
[2018-03-07 20:12] LABS: Oxycodone (GC/MS) 699 ng/mL (Cutoff=100)
[2018-03-08 17:25] LABS: Opiates Negative (Cutoff=100)
== END ==
PROVIDERS: Family Provider Physician Assistant; PCP Physician Assistant; Visit Provider Clinical Nurse Specialist Family Health
DX: M50.10 Cervical disc disorder with radiculopathy, unspecified cervical region (principal); M47.892 Other spondylosis, cervical region; Z79.899 Other long term (current) drug therapy
CPT/HCPCS: 80305; 80361; 80365; 99213; G0480

== ENCOUNTER → 2018-05-20 09:06 | Outpatient (POV) | payer MEDICARE, MEDICAID, SELFPAY ==
[2018-05-20 09:08] VITALS: BP 125/86; PULSE 84; RESP 18; O2SAT 98; BMI 19.5
--- NOTE | 2018-05-20 09:36 | HMH.PAINSOAP ---
[facility] Pain Management SOAP Note Subjective:: She is a pleasant 58-year-old white female who presents today for medication refills. We are currently treating her for degenerative disc disease cervical spine with cervical radiculopathy symptoms. Patient is currently on oxycodone 5 mg 1 p.o. 3 times daily. Patient's GLORY reviewed and appropriate. Patient has heard from [facility] that her liver his fine. Patient would like to be restarted on her gabapentin. She rates her pain at 8 out of 10 today. ROS General: no recent weight change, no fever, no sleep disturbances Respiratory: no cough, no shortness of air, no recurring pulmonary infections Cardiovascular/Peripheral Vascular: No chest pain, No palpitations, no edema, no shortness of breath. Gastrointestinal: no incontinence, normal bowel movements reported Genitourinary: no incontinence Musculoskeletal: Back pain,, neck pain Psychiatric: normal mood/ affect Neurological: [denies weakness in extremities], [denies balance issues] Objective:: Physical Exam General: Alert and oriented x3, no acute distress, pleasant and cooperative, [on room air] Lungs: Resps E/U, Symmetrical chest expansion, Eyes: PERRL Musculoskeletal: Flexion and extension of cervical and lumbar spine somewhat guarded secondary to pain, deep tendon reflexes normal, strength in upper and lower extremities [5/5], [abnormal gait noted] Neurological: speech clear, mangle operator garments equal, no gross sensory deficits Assessment:: Degenerative disc disease cervical spine with cervical radiculopathy back pain Plan:: We will refill her oxycodone 5 mg 1 p.o. 3 times daily give her 2 months worth of prescriptions and see her back in 3 months. 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 We will also start her back on gabapentin 300 mg 1 p.o. 3 times daily. Patient's been instructed to call the office if she has any issues prior to her next appointment. Dr. Liz is reviewed this chart and agrees with this plan of care. Patient has been prescribed a controlled substance after being counseled on the medication, medication safety, and possible side effects. GLORY report has been obtained and reviewed prior to prescription and found to be appropriate. Opioid contract was reviewed and signed by the patient, and that they have agreed to all of the terms set forth by our compliance program. This note was dictated using voice recognition software and may contain errors or omissions
--- NOTE | 2018-05-20 09:39 | P.CONS_ITS ---
[facility] Pain Management SOAP Note Subjective:: She is a pleasant 58-year-old white female who presents today for medication refills. We are currently treating her for degenerative disc disease cervical spine with cervical radiculopathy symptoms. Patient is currently on oxycodone 5 mg 1 p.o. 3 times daily. Patient's GLORY reviewed and appropriate. Patient has heard from [facility] that her liver his fine. Patient would like to be restarted on her gabapentin. She rates her pain at 8 out of 10 today. ROS General: no recent weight change, no fever, no sleep disturbances Respiratory: no cough, no shortness of air, no recurring pulmonary infections Cardiovascular/Peripheral Vascular: No chest pain, No palpitations, no edema, no shortness of breath. Gastrointestinal: no incontinence, normal bowel movements reported Genitourinary: no incontinence Musculoskeletal: Back pain,, neck pain Psychiatric: normal mood/ affect Neurological: [denies weakness in extremities], [denies balance issues] Objective:: Physical Exam General: Alert and oriented x3, no acute distress, pleasant and cooperative, [on room air] Lungs: Resps E/U, Symmetrical chest expansion, Eyes: PERRL Musculoskeletal: Flexion and extension of cervical and lumbar spine somewhat guarded secondary to pain, deep tendon reflexes normal, strength in upper and lower extremities [5/5], [abnormal gait noted] Neurological: speech clear, aircraft instrument repairer equal, no gross sensory deficits Assessment:: Degenerative disc disease cervical spine with cervical radiculopathy back pain Plan:: We will refill her oxycodone 5 mg 1 p.o. 3 times daily give her 2 months worth of prescriptions and see her back in 3 months. 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 We will also start her back on gabapentin 300 mg 1 p.o. 3 times daily. Patient's been instructed to call the office if she has any issues prior to her next appointment. Dr. Liz is reviewed this chart and agrees with this plan of care. Patient has been prescribed a controlled substance after being counseled on the medication, medication safety, and possible side effects. GLORY report has been obtained and reviewed prior to prescription and found to be appropriate. Opioid contract was reviewed and signed by the patient, and that they have agreed to all of the terms set forth by our compliance program. This note was dictated using voice recognition software and may contain errors or omissions
== END ==
PROVIDERS: PCP Physician Assistant; Visit Provider Clinical Nurse Specialist Family Health
DX: M50.10 Cervical disc disorder with radiculopathy, unspecified cervical region (principal); M54.9 Dorsalgia, unspecified
CPT/HCPCS: 99213

== ENCOUNTER → 2018-08-12 13:16 | Outpatient (POV) | payer MEDICARE, MEDICAID, SELFPAY ==
[2018-08-12 13:52] VITALS: BP 125/87; PULSE 77; RESP 18; O2SAT 98; BMI 20.2
--- NOTE | 2018-08-13 08:44 | HMH.PAINSOAP ---
[facility] Pain Management SOAP Note Subjective:: Patient is a pleasant 58-year-old white female who presents today for medication refills. We are currently treating her for degenerative disc disease cervical spine is with cervical radiculopathy symptoms. Patient is currently on oxycodone 5 mg 1 p.o. 3 times daily. Patient's GLORY reviewed and appropriate. She rates her pain a 7 out of 10. ROS General: no recent weight change, no fever, no sleep disturbances Respiratory: no cough, no shortness of air, no recurring pulmonary infections Cardiovascular/Peripheral Vascular: No chest pain, No palpitations, no edema, no shortness of breath. Gastrointestinal: no incontinence, normal bowel movements reported Genitourinary: no incontinence Musculoskeletal: Back pain, neck pain Psychiatric: normal mood/ affect Neurological: [denies weakness in extremities], [denies balance issues] Objective:: Physical Exam General: Alert and oriented x3, no acute distress, pleasant and cooperative, [on room air] Lungs: Resps E/U, Symmetrical chest expansion, Eyes: PERRL Musculoskeletal: Flexion and extension of cervical and lumbar spine somewhat guarded secondary to pain, deep tendon reflexes normal, strength in upper and lower extremities [5/5], [abnormal gait noted] Neurological: speech clear, building services supervisor equal, no gross sensory deficits Assessment:: Degenerative disc disease cervical spinal cervical radiculopathy Plan:: We will increase her oxycodone 5 mg to 4 times daily. We will give her 2 months worth of medication and see her back in 3 months. 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 We will continue her on gabapentin 300 mg 1 p.o. 3 times daily. She is been instructed to call the office if she has an issue prior to her next appointment. Patient has been prescribed a controlled substance after being counseled on the medication, medication safety, and possible side effects. GLORY report has been obtained and reviewed prior to prescription and found to be appropriate. Opioid contract was reviewed and signed by the patient, and that they have agreed to all of the terms set forth by our compliance program. Dr. Liz has reviewed this note and agrees with this plan of care. This note was dictated using voice recognition software and may contain errors or omissions
--- NOTE | 2018-08-13 08:48 | P.CONS_ITS ---
[facility] Pain Management SOAP Note Subjective:: Patient is a pleasant 58-year-old white female who presents today for medication refills. We are currently treating her for degenerative disc disease cervical spine is with cervical radiculopathy symptoms. Patient is currently on oxycodone 5 mg 1 p.o. 3 times daily. Patient's GLORY reviewed and appropriate. She rates her pain a 7 out of 10. ROS General: no recent weight change, no fever, no sleep disturbances Respiratory: no cough, no shortness of air, no recurring pulmonary infections Cardiovascular/Peripheral Vascular: No chest pain, No palpitations, no edema, no shortness of breath. Gastrointestinal: no incontinence, normal bowel movements reported Genitourinary: no incontinence Musculoskeletal: Back pain, neck pain Psychiatric: normal mood/ affect Neurological: [denies weakness in extremities], [denies balance issues] Objective:: Physical Exam General: Alert and oriented x3, no acute distress, pleasant and cooperative, [on room air] Lungs: Resps E/U, Symmetrical chest expansion, Eyes: PERRL Musculoskeletal: Flexion and extension of cervical and lumbar spine somewhat guarded secondary to pain, deep tendon reflexes normal, strength in upper and lower extremities [5/5], [abnormal gait noted] Neurological: speech clear, lacquer polisher equal, no gross sensory deficits Assessment:: Degenerative disc disease cervical spinal cervical radiculopathy Plan:: We will increase her oxycodone 5 mg to 4 times daily. We will give her 2 months worth of medication and see her back in 3 months. 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 We will continue her on gabapentin 300 mg 1 p.o. 3 times daily. She is been instructed to call the office if she has an issue prior to her next appointment. Patient has been prescribed a controlled substance after being counseled on the medication, medication safety, and possible side effects. GLORY report has been obtained and reviewed prior to prescription and found to be appropriate. Opioid contract was reviewed and signed by the patient, and that they have agreed to all of the terms set forth by our compliance program. Dr. Liz has reviewed this note and agrees with this plan of care. This note was dictated using voice recognition software and may contain errors or omissions
== END ==
PROVIDERS: PCP Physician Assistant; Visit Provider Clinical Nurse Specialist Family Health
DX: M50.10 Cervical disc disorder with radiculopathy, unspecified cervical region (principal)
CPT/HCPCS: 99213

== ENCOUNTER → 2018-08-26 12:31 | Outpatient (CLI) | payer MEDICARE, MEDICAID, SELFPAY | PROVIDERS: PCP Physician Assistant; Visit Provider Nurse Practitioner Family | DX: G47.9 Sleep disorder, unspecified (principal); R06.02 Shortness of breath; R06.83 Snoring; R40.0 Somnolence; G47.30 Sleep apnea, unspecified | CPT/HCPCS: G0399 ==

== ENCOUNTER → 2018-09-02 12:40 | Outpatient (CLI) | payer MEDICARE, MEDICAID, SELFPAY ==
--- NOTE | 2018-09-02 12:41 | CA_ITS ---
PROCEDURE: 2-D M-mode and color Doppler study INDICATIONS FOR THE TEST: Chest pain COPD Heart Murmur Tobacco Smoking Palpitations+ Fatigue+ Syncope Edema+ Hypertension Diabetes Mellitus Rheumatic Fever SOB+WALKER Obesity Hyperlipidemia Family History HD Additional History LOOP RECORDER PATIENT INFORMATION HEIGHT:64 WEIGHT:116 GENDER: Female B/P:146/98 2-D/M-MODE INTERPRETATION: 2-D MEASUREMENTS OBSERVED VALUES IN CMS Right Ventricular Dimension (RVDd) 2.7 Interventricular Septum (Thickness)(IVsd) 1.0 Left Ventricular Internal Dimensions(LVIDd) 3.5 Left Ventricular Posterior Wall (Thickness)(LVPWd) 0.6 Aortic Root 2.9 Aortic Cusp Separation 2.0 Left Atrial Dimensions (LAD) 2.7 2D 1. Left atrium is mildly enlarged, left ventricle is normal size, there is no concentric left ventricular hypertrophy, visually estimated ejection fraction of 55% with no regional wall motion abnormality. 2. The right atrium and right ventricle are mildly enlarged with normal contractility. 3. The aortic valve is thickened and calcified, leaflet continue to display mobility. 4. The mitral and tricuspid valvular grossly normal. 5. The pulmonic valve is poorly present. 6. No significant pericardial effusion noted. DOPPLER INTERROGATION: Doppler interrogation of the aortic, mitral and tricuspid valvular presence of moderate aortic, mild mitral and tricuspid regurgitation, tricuspid regurgitation jet velocity is inadequate for calculation of the right ventricular systolic pressure, grade 1 diastolic dysfunction seen with tissue Doppler evidence of raised left atrial pressure, inferior vena cava is not well visualized. CONCLUSION: 1. Mildly left atrium, normal left ventricular size, there is no concentric left ventricular hypertrophy, visually estimated ejection fraction 55% with no regional wall motion abnormality, grade 1 diastolic dysfunction seen with tissue Doppler evidence of raised left atrial pressure. 2. Moderate aortic, mild mitral and tricuspid regurgitation, inferior vena cava is not well visualized. 3. No significant pericardial effusion noted.
== END ==
PROVIDERS: PCP Emergency Medicine; Visit Provider Internal Medicine Cardiovascular Disease
DX: R06.02 Shortness of breath (principal); R60.0 Localized edema
CPT/HCPCS: 93306

== ENCOUNTER → 2018-11-11 12:47 | Outpatient (POV) | payer MEDICARE, MEDICAID, SELFPAY ==
[2018-11-11 13:45] VITALS: BP 116/87; PULSE 86; RESP 18; O2SAT 98
[2018-11-11 14:44] LABS: Amphetamine/Metha Screen,Urine Negative ng/mL (<1000); Barbiturates Screen,Urine Negative ng/mL (<200); Benzodiazepines Screen,Urine Negative ng/mL (<200); Cannabinoid Screen,Urine Negative ng/mL (<50); Cocaine Screen,Urine Negative ng/mL (<300); Methadone Screen,Urine Negative ng/mL (<300); Opiate Screen,Urine Negative ng/mL (<300); Phencyclidine Screen,Urine Negative ng/mL (<25)
--- NOTE | 2018-11-11 14:53 | HMH.PAINSOAP ---
[facility] Pain Management SOAP Note Subjective:: Patient is pleasant 58-year-old white female who presents today for medication refills. Currently treating her for degenerative disc disease cervical spine with cervical radiculopathy. Patient is currently on oxycodone 5 mg 1 p.o. 4 times daily. She is also taking gabapentin 300 mg 1 p.o. 3 times daily. Patient's Glory number is [id number] is reviewed and appropriate. He rates her pain a 7 out of 10 today. ROS General: no recent weight change, no fever, no sleep disturbances Respiratory: no cough, no shortness of air, no recurring pulmonary infections Cardiovascular/Peripheral Vascular: No chest pain, No palpitations, no edema, no shortness of breath. Gastrointestinal: no incontinence, normal bowel movements reported Genitourinary: no incontinence Musculoskeletal: [Back pain, neck pain Psychiatric: normal mood/ affect, [denies depression], [denies anxiety] Neurological: [denies weakness in extremities], [denies balance issues] Objective:: Physical Exam General: Alert and oriented x3, no acute distress, pleasant and cooperative, [on room air] Lungs: Resps E/U, Symmetrical chest expansion, Eyes: PERRL Musculoskeletal: Flexion and extension of cervical and lumbar spine somewhat guarded secondary to pain, deep tendon reflexes normal, strength in upper and lower extremities [5/5], normal gait noted Neurological: speech clear, supervisor winding department equal, no gross sensory deficits Assessment:: Degenerative disc disease cervical spinal with cervical radiculopathy Plan:: We will continue her oxycodone 5 mg 4 times daily. We will give her 2 months worth of medication see her back in 3 months. She can slat pickler her third in the interim. We will continue her on gabapentin 300 mg 1 p.o. 3 times daily. She is been instructed to call the office if she has any issues prior to her next appointment. Patient has been prescribed a controlled substance after being counseled on the medication, medication safety, and possible side effects. GLORY report has been obtained and reviewed prior to prescription and found to be appropriate. Opioid contract was reviewed and signed by the patient, and that they have agreed to all of the terms set forth by our compliance program. Dr. Liz has reviewed this note and agrees with this plan of care. This note was dictated using voice recognition software and may contain errors or omissions
--- NOTE | 2018-11-11 14:56 | P.CONS_ITS ---
[facility] Pain Management SOAP Note Subjective:: Patient is pleasant 58-year-old white female who presents today for medication refills. Currently treating her for degenerative disc disease cervical spine with cervical radiculopathy. Patient is currently on oxycodone 5 mg 1 p.o. 4 times daily. She is also taking gabapentin 300 mg 1 p.o. 3 times daily. Patient's Glory number is [id number] is reviewed and appropriate. He rates her pain a 7 out of 10 today. ROS General: no recent weight change, no fever, no sleep disturbances Respiratory: no cough, no shortness of air, no recurring pulmonary infections Cardiovascular/Peripheral Vascular: No chest pain, No palpitations, no edema, no shortness of breath. Gastrointestinal: no incontinence, normal bowel movements reported Genitourinary: no incontinence Musculoskeletal: [Back pain, neck pain Psychiatric: normal mood/ affect, [denies depression], [denies anxiety] Neurological: [denies weakness in extremities], [denies balance issues] Objective:: Physical Exam General: Alert and oriented x3, no acute distress, pleasant and cooperative, [on room air] Lungs: Resps E/U, Symmetrical chest expansion, Eyes: PERRL Musculoskeletal: Flexion and extension of cervical and lumbar spine somewhat guarded secondary to pain, deep tendon reflexes normal, strength in upper and lower extremities [5/5], normal gait noted Neurological: speech clear, overlock waistline joiner equal, no gross sensory deficits Assessment:: Degenerative disc disease cervical spinal with cervical radiculopathy Plan:: We will continue her oxycodone 5 mg 4 times daily. We will give her 2 months worth of medication see her back in 3 months. 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 We will continue her on gabapentin 300 mg 1 p.o. 3 times daily. She is been instructed to call the office if she has any issues prior to her next appointment. Patient has been prescribed a controlled substance after being counseled on the medication, medication safety, and possible side effects. GLORY report has been obtained and reviewed prior to prescription and found to be appropriate. Opioid contract was reviewed and signed by the patient, and that they have agreed to all of the terms set forth by our compliance program. Dr. Liz has reviewed this note and agrees with this plan of care. This note was dictated using voice recognition software and may contain errors or omissions
[2018-11-18 23:06] LABS: Oxycodone (GC/MS) 547 ng/mL (Cutoff=100)
[2018-11-20 06:21] LABS: Opiates Negative (Cutoff=100)
== END ==
PROVIDERS: PCP Physician Assistant; Visit Provider Clinical Nurse Specialist Family Health
DX: M50.10 Cervical disc disorder with radiculopathy, unspecified cervical region (principal); Z79.899 Other long term (current) drug therapy
CPT/HCPCS: 80305; 80361; 80365; 99212; G0480

== ENCOUNTER → 2018-11-13 20:00 | Outpatient (CLI) | payer MEDICARE, MEDICAID, SELFPAY | PROVIDERS: PCP Physician Assistant; Visit Provider Specialist | DX: G47.33 Obstructive sleep apnea (adult) (pediatric) (principal) | CPT/HCPCS: 95811 ==

== ENCOUNTER → 2018-12-02 18:00 | Outpatient (CLI) | payer MEDICARE, MEDICAID, SELFPAY ==
[2018-12-02 18:26] LABS: Basophils % 0.8 % (0.1-2.0); Eosinophils % 0.7 % (0.1-12.0); Hematocrit 43.5 % (37.0-47.0); Lymphocytes # 1.9 K/mm3 (0.7-4.5); Lymphocytes % 41.6 % (10-50); Mean Corpuscular HGB Conc 32.1 g/dL (31.8-35.4); Mean Corpuscular Hemoglobin 30.3 pg (27.0-31.2); Mean Corpuscular Volume 94.2 fl (81-99); Mean Platelet Volume 9.7 fl (7.4-10.4); Monocytes # 0.3 K/mm3 (0.1-1.0); Monocytes % 7.2 % (1.7-9.3); Neutrophils # 2.3 K/mm3 (1.8-7.8); Neutrophils % 49.6 % (37.0-80.0); Platelet Count 317 K/mm3 (142-424); Red Blood Count 4.61 M/mm3 (4.20-5.40); Red Cell Distribution Width 13.3 % (11.5-17.5); White Blood Count 4.6 K/mm3 (4.8-10.8)
[2018-12-02 18:59] LABS: Alanine Aminotransferase 66 U/L (12-78); Albumin Level 3.8 gm/dL (3.4-5.0); Albumin/Globulin Ratio 1.1 (1.1-1.8); Alkaline Phosphatase 111 U/L (46-116); Anion Gap 14.7 mEq/L (5-15); Aspartate Amino Transferase 39 U/L (15-37); Bilirubin,Total 0.5 mg/dL (0.2-1.0); Blood Urea Nitrogen 14 mg/dL (7-18); Calcium 8.8 mg/dL (8.5-10.1); Carbon Dioxide 28 mmol/L (21.0-32.0); Chloride 101 mmol/L (98-107); Chol/HDL Ratio 2.9 (1-3.5); Cholesterol 283 mg/dL (140-200); Creatinine,Serum 0.88 mg/dL (0.55-1.02); Estimated Glomerular Filt Rate 66 ml/min (>60); GFR (African American) 80 ML/MIN (>60); Globulin 3.5 gm/dl (1.3-3.2); Glucose 82 mg/dL (74-106); HDL Cholesterol 96 mg/dL (29-89); LDL Cholesterol 167 mg/dL (0-130); Potassium 4.7 mmoL/L (3.5-5.1); Sodium 139 mmol/L (136-145); Thyroid Stimulating Hormone 1.43 uIU/ml (0.358-3.740); Total Protein,Serum 7.3 gm/dL (6.4-8.2); Triglycerides 98 mg/dL (30-200); VLDL Cholesterol 20 mg/dL (0-40)
[2018-12-04 17:50] LABS: Vitamin D 25 Hydroxy 11.4 ng/mL (30.0-100.0)
[2018-12-05 14:15] LABS: Peripheral Smear Review Scanned Result
== END ==
PROVIDERS: Visit Provider Physician Assistant
DX: I47.1 Supraventricular tachycardia (principal); I95.9 Hypotension, unspecified; R07.89 Other chest pain; D70.9 Neutropenia, unspecified; E55.9 Vitamin D deficiency, unspecified
CPT/HCPCS: 80053; 80061; 82652; 84436; 84443; 85025; 85060

== ENCOUNTER → 2018-12-30 09:59 | Outpatient (CLI) | payer MEDICARE, MEDICAID, SELFPAY ==
[2018-12-30 16:29] LABS: Ferritin 19 ng/mL (8-388)
== END ==
PROVIDERS: Visit Provider Specialist
DX: D50.9 Iron deficiency anemia, unspecified (principal); G47.33 Obstructive sleep apnea (adult) (pediatric)
CPT/HCPCS: 36415; 82728

== ENCOUNTER → 2019-01-21 14:26 | Outpatient (CLI) | payer MEDICARE, MEDICAID, SELFPAY ==
--- NOTE | 2019-01-21 14:27 | XR_ITS ---
PROCEDURE: XR DEXA AXIAL SKELETON CLINICAL HISTORY: SCREENING COMPARISON: No exams were available for comparison TECHNIQUE: FINDINGS: The L1-L4 density has a BMD of 1.214 grams/centimeter sq with a T-score of 0.3. The lowest density in the hip is in the right femoral neck with a BMD of 0.820 which is a T-score -1.6 consistent with osteopenia IMPRESSION: This patient is considered osteopenic according to the World Health Organization criteria. Bone density is between 10 and 25 percent below young normal . Fracture risk is moderate. Treatment is advised. Based on these results of follow-up exam is recommended in 2 years Dictated by: Diego Kowalski MD 01/21/2019 15:07 Signed by: <Electronically signed by Diego Koawlski MD in [place]> 01/21/2019 15:07
--- NOTE | 2019-01-21 14:27 | MM_ITS ---
PROCEDURE: MM DIG SCREENING MAMM BI W/CAD CLINICAL INDICATION: SCREENING There is a history of breast cancer in the patient's maternal grandmother. COMPARISON: DMSB DIG MAMM-SCREEN [place]LL W/CAD from 03/14/2017 TECHNIQUE: Standard CC and MLO images were obtained. R2 CAD reviewed. FINDINGS: The breasts are composed primarily of fat with scattered fibroglandular densities in each breast. There is a well-defined metallic density projecting over the inner quadrant left breast likely a loop recorder. There is no suspicious lesion either breast and no suspicious microcalcifications. There is a stable well-defined nodular density axillary tail left breast likely a low-lying node unchanged from previous exam. IMPRESSION: Fibrofatty parenchyma with no suspicious lesions seen BI-RAD Category: 2 Benign Finding(s) FOLLOW-UP: 1YR 1 Year Follow-up (A letter has been sent to the patient regarding results of the study.) Dictated by: Dr. Pee Weems MD 01/21/2019 16:24 Signed by: <Electronically signed by Dr. Pee Weems MD in [place]> 01/21/2019 16:24
== END ==
PROVIDERS: PCP Physician Assistant; Visit Provider Obstetrics & Gynecology
DX: Z78.0 Asymptomatic menopausal state (principal); Z12.31 Encounter for screening mammogram for malignant neoplasm of breast; Z13.820 Encounter for screening for osteoporosis
CPT/HCPCS: 77067; 77080

== ENCOUNTER → 2019-02-04 11:30 | Outpatient (POV) | payer MEDICARE, MEDICAID, SELFPAY ==
[2019-02-04 11:50] VITALS: BP 142/90; PULSE 82; RESP 18; O2SAT 99; BMI 21.9
--- NOTE | 2019-02-04 12:37 | HMH.PAINSOAP ---
[facility] Pain Management SOAP Note Subjective:: Patient is a pleasant 58-year-old white female who presents today for medication refills. She is currently being treated for degenerative disc disease cervical spinal cervical radiculopathy. She is on oxycodone 5 mg 1 p.o. 4 times daily. She is also on gabapentin however she has been doing worse lately she feels the gabapentin is not beneficial. She rates her pain an 8 out of 10 she denies side effects or medication. Glory #[id number] reviewed and appropriate. Urine drug screens have been appropriate. ROS General: no recent weight change, no fever, no sleep disturbances Respiratory: no cough, no shortness of air, no recurring pulmonary infections Cardiovascular/Peripheral Vascular: No chest pain, No palpitations, no edema, no shortness of breath. Gastrointestinal: no incontinence, normal bowel movements reported Genitourinary: no incontinence Musculoskeletal: Neck pain, arm pain, elbow pain, foot pain, knee pain, back pain Psychiatric: normal mood/ affect Neurological: [denies weakness in extremities], [denies balance issues] Objective:: Physical Exam General: Alert and oriented x3, no acute distress, pleasant and cooperative, [on room air] Lungs: Resps E/U, Symmetrical chest expansion, Eyes: PERRL Musculoskeletal: Flexion and extension of cervical spine somewhat guarded secondary to pain, deep tendon reflexes normal, strength in upper and lower extremities [5/5], [abnormal gait noted] Neurological: speech clear, braided band assembler equal, no gross sensory deficits Assessment:: Degenerative disc disease cervical spinal cervical radiculopathy Plan:: We will change her from gabapentin to Lyrica 75 mg 1 p.o. twice daily. We will also continue her oxycodone 5 mg 1 p.o. 4 times daily. We will give the patient 1 month worth of medication we will follow-up with her in 1 month reassess her symptoms at that time. Dr. Liz has reviewed this note and agrees with this plan of care. This note was dictated using voice recognition software and may contain errors or omissions Patient has been prescribed a controlled substance after being counseled on the medication, medication safety, and possible side effects. GLORY report has been obtained and reviewed prior to prescription and found to be appropriate. Opioid contract was reviewed and signed by the patient, and that they have agreed to all of the terms set forth by our compliance program. Pain Management Hx Components *Have you ever received a pneumonia vaccine?: No *Have you received a flu vaccine this season?: No - *Social History *Occupational Status:: other *Travel in the last 8 weeks: None
== END ==
PROVIDERS: PCP Physician Assistant; Visit Provider Clinical Nurse Specialist Family Health
DX: M50.10 Cervical disc disorder with radiculopathy, unspecified cervical region (principal)
CPT/HCPCS: 99212

== ENCOUNTER → 2019-03-03 10:31 | Outpatient (POV) | payer MEDICARE, MEDICAID, SELFPAY ==
[2019-03-03 10:47] VITALS: BP 142/82; PULSE 76; RESP 18; O2SAT 98; BMI 21.5
--- NOTE | 2019-03-03 10:56 | HMH.PAINSOAP ---
[facility] Pain Management SOAP Note Subjective:: Patient is a pleasant 59-year-old white female who presents today for medication refills she is currently being treated for degenerative disc disease cervical spinal cervical radiculopathy she is on oxycodone 5 mg 1 p.o. 4 times daily she was on gabapentin but lately she been doing worse. We changed to Lyrica and she states she has had a significant increase in benefit of her medication she rates her pain a 6 out of 10 today. She denies side effects [facility] #[id number] reviewed and appropriate. She will go for urine drug screen today. Patient also briefly talked about CBD I discussed with her THC free options. ROS General: no recent weight change, no fever, no sleep disturbances Respiratory: no cough, no shortness of air, no recurring pulmonary infections Cardiovascular/Peripheral Vascular: No chest pain, No palpitations, no edema, no shortness of breath. Gastrointestinal: no incontinence, normal bowel movements reported Genitourinary: no incontinence Musculoskeletal: neck pain arm pain Psychiatric: normal mood/ affect Neurological: [denies weakness in extremities], [denies balance issues] Objective:: Physical Exam General: Alert and oriented x3, no acute distress, pleasant and cooperative, [on room air] Lungs: Resps E/U, Symmetrical chest expansion, Eyes: PERRL Musculoskeletal: Flexion and extension of lumbar spine somewhat guarded secondary to pain, deep tendon reflexes normal, strength in upper and lower extremities [5/5], [abnormal gait noted] Neurological: speech clear, shirring machine operator equal, no gross sensory deficits Assessment:: Physical Exam General: Alert and oriented x3, no acute distress, pleasant and cooperative, [on room air] Lungs: Resps E/U, Symmetrical chest expansion, Eyes: PERRL Musculoskeletal: Flexion and extension of cervical spine somewhat guarded secondary to pain, deep tendon reflexes normal, strength in upper and lower extremities [5/5], slightly antalgic gait noted Neurological: speech clear, shirring machine operator equal, no gross sensory deficits Plan:: We will refill the patient's oxycodone 5 mg 1 p.o. 4 times daily. We will also continue her Lyrica 75 mill grams 1 p.o. twice daily. I will follow-up with the patient 2 months reassess her symptoms at that time she is been instructed to call the office if she has any issues prior to her next appointment. Patient has been prescribed a controlled substance after being counseled on the medication, medication safety, and possible side effects. GLORY report has been obtained and reviewed prior to prescription and found to be appropriate. Opioid contract was reviewed and signed by the patient, and that they have agreed to all of the terms set forth by our compliance program. Dr. Liz has reviewed this note and agrees with this plan of care. This note was dictated using voice recognition software and may contain errors or omissions [facility] History I have reviewed the patient's past medical history: Yes Medical History: Reports:: Anxiety, Arrhythmia, Cancer, Coronary Artery Disease, Depression, Gastroesophageal Reflux Disease(GERD), Migraine, Palpitations Denies:: Diabetes Mellitus Type 1, Diabetes Mellitus Type 2, Internal Pacemaker, MRSA, Seizures *Have you ever received a pneumonia vaccine?: Yes *Have you received a flu vaccine this season?: Yes Other Medical History: Reports: Hypothyroidism, Other. Denies: Blood Transfusion Reaction Other Surgeries: Yes: No Previous Surgery, Appendectomy, Cardiac Catheterization, Cholecystectomy, Colonoscopy, , Hysterectomy-Total, Thyroidectomy, Other. No: Pacemaker Amputation: No Fractures: Yes (2018- FX. LEFT ANKLE) - *Social History Smoking Status: Never smoker Alcohol Intake: never Alcohol Intake Frequency:: holidays/special occasions only Substance Use Type: denies use *Occupational Status:: other Housing: apartment Household Members: none *Travel in the [facility]
--- NOTE | 2019-03-03 11:00 | P.CONS_ITS ---
[facility] Pain Management SOAP Note Subjective:: Patient is a pleasant 59-year-old white female who presents today for medication refills she is currently being treated for degenerative disc disease cervical spinal cervical radiculopathy she is on oxycodone 5 mg 1 p.o. 4 times daily she was on gabapentin but lately she been doing worse. We changed to Lyrica and she states she has had a significant increase in benefit of her medication she rates her pain a 6 out of 10 today. She denies side effects [facility] #[id number] reviewed and appropriate. She will go for urine drug screen today. Patient also briefly talked about CBD I discussed with her THC free options. ROS General: no recent weight change, no fever, no sleep disturbances Respiratory: no cough, no shortness of air, no recurring pulmonary infections Cardiovascular/Peripheral Vascular: No chest pain, No palpitations, no edema, no shortness of breath. Gastrointestinal: no incontinence, normal bowel movements reported Genitourinary: no incontinence Musculoskeletal: neck pain arm pain Psychiatric: normal mood/ affect Neurological: [denies weakness in extremities], [denies balance issues] Objective:: Physical Exam General: Alert and oriented x3, no acute distress, pleasant and cooperative, [on room air] Lungs: Resps E/U, Symmetrical chest expansion, Eyes: PERRL Musculoskeletal: Flexion and extension of lumbar spine somewhat guarded secondary to pain, deep tendon reflexes normal, strength in upper and lower extremities [5/5], [abnormal gait noted] Neurological: speech clear, rubber tile floor layer equal, no gross sensory deficits Assessment:: Physical Exam General: Alert and oriented x3, no acute distress, pleasant and cooperative, [on room air] Lungs: Resps E/U, Symmetrical chest expansion, Eyes: PERRL Musculoskeletal: Flexion and extension of cervical spine somewhat guarded secondary to pain, deep tendon reflexes normal, strength in upper and lower extremities [5/5], slightly antalgic gait noted Neurological: speech clear, rubber tile floor layer equal, no gross sensory deficits Plan:: We will refill the patient's oxycodone 5 mg 1 p.o. 4 times daily. We will also continue her Lyrica 75 mill grams 1 p.o. twice daily. I will follow-up with the patient 2 months reassess her symptoms at that time she is been instructed to call the office if she has any issues prior to her next appointment. Patient has been prescribed a controlled substance after being counseled on the medication, medication safety, and possible side effects. GLORY report has been obtained and reviewed prior to prescription and found to be appropriate. Opioid contract was reviewed and signed by the patient, and that they have agreed to all of the terms set forth by our compliance program. Dr. Liz has reviewed this note and agrees with this plan of care. This note was dictated using voice recognition software and may contain errors or omissions [facility] History I have reviewed the patient's past medical history: Yes Medical History: Reports:: Anxiety, Arrhythmia, Cancer, Coronary Artery Disease, Depression, Gastroesophageal Reflux Disease(GERD), Migraine, Palpitations Denies:: Diabetes Mellitus Type 1, Diabetes Mellitus Type 2, Internal Pacemaker, MRSA, Seizures *Have you ever received a pneumonia vaccine?: Yes *Have you received a flu vaccine this season?: Yes Other Medical History: Reports: Hypothyroidism, Other. Denies: Blood Transfusion Reaction Other Surgeries: Yes: No Previous Surgery, Appendectomy, Cardiac Catheterization, Cholecystectomy, Colonoscopy, , Hysterec
[2019-03-03 15:20] LABS: Amphetamine/Metha Screen,Urine Negative ng/mL (<1000); Barbiturates Screen,Urine Negative ng/mL (<200); Benzodiazepines Screen,Urine Negative ng/mL (<200); Cannabinoid Screen,Urine Negative ng/mL (<50); Cocaine Screen,Urine Negative ng/mL (<300); Methadone Screen,Urine Negative ng/mL (<300); Opiate Screen,Urine Negative ng/mL (<300); Phencyclidine Screen,Urine Negative ng/mL (<25)
[2019-03-09 19:09] LABS: Oxycodone (GC/MS) 872 ng/mL (Cutoff=100)
[2019-03-10 01:23] LABS: Opiates Negative (Cutoff=100); Oxymorphone (GC/MS) 126 ng/mL (Cutoff=100)
== END ==
PROVIDERS: PCP Physician Assistant; Visit Provider Clinical Nurse Specialist Family Health
DX: M50.10 Cervical disc disorder with radiculopathy, unspecified cervical region (principal); Z79.899 Other long term (current) drug therapy
CPT/HCPCS: 80305; 80361; 80365; 99212; G0480

== ENCOUNTER → 2019-04-24 10:13 | Outpatient (POV) | payer MEDICARE, MEDICAID, SELFPAY ==
[2019-04-24 10:28] VITALS: BP 136/89; PULSE 78; RESP 18; O2SAT 99; BMI 22.3
--- NOTE | 2019-04-24 11:06 | P.CONS_ITS ---
[facility] Pain Management SOAP Note Subjective:: Patient is a pleasant 59-year-old white female who presents today for medication refill. She is being treated for neck pain with cervical radiculopathy symptoms. She is currently on oxycodone 5 mg 1 tablet p.o. 4 times daily and Lyrica 75 mg 1 tablet p.o. twice daily. She denies any side effects to her medications. Patient says the medications are giving her about 80% relief of her pain. She rates her pain 3 out of 10 today. Daniele #[id number] has been reviewed and is appropriate. Her urine drug screens are appropriate. Review of Systems General: No recent weight changes, no fever, no sleep disturbances Respiratory: No cough, no shortness of air, no recurring pulmonary infections Cardiovascular/peripheral vascular: No chest pain, no palpitations, no edema, no shortness of breath Gastrointestinal: No new onset incontinence, normal bowel movements reported Genitourinary: No new onset incontinence Musculoskeletal: Neck pain Psychiatric: Normal mood/affect Neurological: [Denies weakness in extremities], [denies balance issues] Objective:: Physical exam General: Alert and oriented x3, no acute distress, pleasant and cooperative, [on room air] Lungs: Respirations even and unlabored, symmetrical chest expansion Eyes: PERRL Musculoskeletal: Flexion and extension of cervical spine somewhat guarded secondary to pain, deep tendon reflexes normal, strength in upper and lower extremities [5/5], [abnormal gait noted] Neurological: Speech clear, paperhanger pipe equal, no gross sensory deficit Assessment:: Degenerative disc disease cervical spine cervical radiculopathy symptoms Plan:: We will refill the patient's oxycodone 5 mg 1 tablet p.o. 4 times daily. We will also order her Lyrica 75 mg 1 tablet p.o. twice daily. 10 months worth of medication and see her back in to reassess her symptoms. She has been instructed to contact the clinic if she has any concerns before next appointment. Dr. Liz has reviewed this note and agrees with this plan of care. This note was dictated using voice recognition software and make contain errors or omissions. [facility] History I have reviewed the patient's past medical history: Yes Medical History: Reports:: Anxiety, Arrhythmia, Cancer, Coronary Artery Disease, Depression, Gastroesophageal Reflux Disease(GERD), Migraine, Palpitations Denies:: Diabetes Mellitus Type 1, Diabetes Mellitus Type 2, Internal Pacemaker, MRSA, Seizures *Have you ever received a pneumonia vaccine?: Yes *Have you received a flu vaccine this season?: Yes Other Medical History: Reports: Hypothyroidism, Other. Denies: Blood Transfusion Reaction Other Surgeries: Yes: No Previous Surgery, Appendectomy, Cardiac Ca theterization, Cholecystectomy, Colonoscopy, , Hysterectomy-Total, Thyroidectomy, Other. No: Pacemaker Amputation: No Fractures: Yes (2018- FX. LEFT ANKLE) - *Social History Smoking Status: Never smoker Alcohol Intake: never Alcohol Intake Frequency:: holidays/special occasions only Substance Use Type: denies use *Occupational Status:: other Housing: apartment Household Members: none *Travel in the last 8 weeks: None - Psychiatric History Pschychiatric History:: Reports:: Anxiety, Depression Family Hx:: Diabetes, Cancer, Hypertension, Stroke
== END ==
PROVIDERS: PCP Physician Assistant; Visit Provider Clinical Nurse Specialist Family Health
DX: M50.10 Cervical disc disorder with radiculopathy, unspecified cervical region (principal)
CPT/HCPCS: 99212

== ENCOUNTER → 2019-06-23 09:35 | Outpatient (POV) | payer MEDICARE, MEDICAID, SELFPAY ==
[2019-06-23 10:01] VITALS: BP 129/83; PULSE 84; RESP 18; O2SAT 99; BMI 22.3
--- NOTE | 2019-06-23 13:05 | HMH.PAINSOAP ---
[facility] Pain Management SOAP Note Subjective:: Patient is a pleasant 59-year-old white female who presents today for medication refills. Patient rates her pain a 9 out of 10 she states her pain is getting worse and worse along her whole back and especially her neck she rates her pain in her heels as extreme. 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 She is currently on oxycodone and Lyrica. Patient is on oxycodone 5 mg 1 p.o. 4 times daily and Lyrica 75 mg twice a day Glory #[id number] reviewed. Patient does not have any diagnostic imaging on her neck that is recent. ROS General: no recent weight change, no fever, no sleep disturbances Respiratory: no cough, no shortness of air, no recurring pulmonary infections Cardiovascular/Peripheral Vascular: No chest pain, No palpitations, no edema, no shortness of breath. Gastrointestinal: no new onset incontinence, normal bowel movements reported Genitourinary: no new onset incontinence Musculoskeletal: Cervical pain and bilateral arm radiculopathy Psychiatric: normal mood/ affect, Neurological: [denies new onset weakness in extremities], [denies new onset balance issues] Objective:: Physical Exam General: Alert and oriented x3, no acute distress, pleasant and cooperative, [on room air] Lungs: Resps E/U, Symmetrical chest expansion, Eyes: PERRL Musculoskeletal: Flexion and extension of cervical spine somewhat guarded secondary to pain, deep tendon reflexes normal, strength in upper and lower extremities [5/5], [abnormal gait noted] Neurological: speech clear, overhauler bus truck equal, no gross sensory deficits Assessment:: Degenerative disc disease cervical spine with cervical radiculopathy, foot pain Plan:: We will send her to Dr. Quevedo for evaluation of her heel pain. We will also get a new cervical MRI. We will refill her oxycodone 5 mg 1 p.o. 4 times daily give her 1 month worth of medication. We will also start her on Lyrica 150 mg 1 p.o. twice daily. She has been instructed call the office if she has any issues prior to her next appointment. Patient has been prescribed a controlled substance after being counseled on the medication, medication safety, and possible side effects. GLORY report has been obtained and reviewed prior to prescription and found to be appropriate. Opioid contract was reviewed and signed by the patient, and that they have agreed to all of the terms set forth by our compliance program. Dr. Liz has reviewed this note and agrees with this plan of care. This note was dictated using voice recognition software and may contain errors or omissions [facility] History I have reviewed the patient's past medical history: Yes Medical History: Reports:: Anxiety, Arrhythmia, Cancer, Coronary Artery Disease, Depression, Gastroesophageal Reflux Disease(GERD), Migraine, Palpitations Denies:: Diabetes Mellitus Type 1, Diabetes Mellitus Type 2, Internal Pacemaker, MRSA, Seizures *Have you ever received a pneumonia vaccine?: No *Have you received a flu vaccine this season?: No Other Medical History: Reports: Hypothyroidism, Other. Denies: Blood Transfusion Reaction Other Surgeries: Yes: No Previous Surgery, Appendectomy, Cardiac Catheterization, Cholecystectomy, Colonoscopy, , Hysterectomy-Total, Thyroidectomy, Other. No: Pacemaker Amputation: No Fractures: Yes (2018- FX. LEFT ANKLE) - *Social History Smoking Status: Never smoker Alcohol Intake: never Alcohol Intake Frequency:: holidays/special occasions only Substance Use Type: denies use *Occupational Status:: other Housing: apartment Household Members: none *Travel in the last 8 weeks: None - Psychiatric History Pschychiatric History:: Reports:: Anxiety, Depression Family Hx:: Diabetes, Cancer, Hypertension, Stroke
== END ==
PROVIDERS: PCP Physician Assistant; Visit Provider Clinical Nurse Specialist Family Health
DX: M50.10 Cervical disc disorder with radiculopathy, unspecified cervical region (principal); M79.673 Pain in unspecified foot; I25.10 Atherosclerotic heart disease of native coronary artery without angina pectoris; K21.9 Gastro-esophageal reflux disease without esophagitis; F32.9 Major depressive disorder, single episode, unspecified; F41.9 Anxiety disorder, unspecified; G43.909 Migraine, unspecified, not intractable, without status migrainosus; Z90.710 Acquired absence of both cervix and uterus; E89.0 Postprocedural hypothyroidism
CPT/HCPCS: 99212

== ENCOUNTER → 2019-07-01 12:37 | Outpatient (CLI) | payer MEDICARE, MEDICAID, SELFPAY ==
--- NOTE | 2019-07-01 12:40 | MR_ITS ---
PROCEDURE: MR CERVICAL SPINE WO CON CLINICAL INDICATION: NECK PAIN Neck pain, bilateral arm pain numbness and tingling COMPARISON: [employer]/O MRI-C-SPINE W/O from 12/07/[address] cervical spine wo con from 02/03/2018 TECHNIQUE: Standard multiplanar multiecho sequences are performed without contrast. 3-D MIP and myelographic images are also rendered and reviewed FINDINGS: There is normal alignment. The cranial cervical junction has an unremarkable appearance. There is slight reversal of the cervical lordosis which is not significantly changed. C2-C3: Unremarkable. C3-C4: Mild right foraminal narrowing from facet and uncovertebral hypertrophy. C4-C5: Mild degenerative disc disease C5-C6: Degenerate disc disease with bulging disc posteriorly and posterior endplate osteophytes/ridging with mild left foraminal narrowing. There is borderline narrowing of the canal at 11 mm without cord impingement. C6-C7: Unremarkable. C7-T1: Mild degenerative disc disease. IMPRESSION: Cervical spondylosis as described above which is most prominent at C5-C6 and is overall not significantly changed. Please see above for detailed description at each level. No extruded herniated disc evident Dictated by: Diego Kowalski MD 07/03/2019 05:31 Electronically signed by Diego Kowalski MD in [place] 07/03/2019 05:31
== END ==
PROVIDERS: PCP Physician Assistant; Visit Provider Clinical Nurse Specialist Family Health
DX: M54.2 Cervicalgia (principal)
CPT/HCPCS: 72141; 76376

== ENCOUNTER → 2019-07-07 14:49 | Outpatient (POV) | payer MEDICARE, MEDICAID, SELFPAY ==
[2019-07-07 15:06] VITALS: BP 126/82; PULSE 81; RESP 18; O2SAT 99; BMI 23.0
--- NOTE | 2019-07-08 08:40 | HMH.PAINSOAP ---
[facility] Pain Management SOAP Note Subjective:: Patient is a pleasant 59-year-old white female who presents today for follow-up. Patient had MRI of her cervical spine. She is having quite a bit of pain however not much of her pathology is changed. Patient and I discussed potential muscular nature of the pain. However most of her pain today is her low back. She is interested in doing some caudal epidural injections. She has had these in the past. She rates her pain today 9 out of 10. We did increase her Lyrica at her last visit 250 mg 1 p.o. twice daily. She is tolerating this well. Patient's not on any anticoagulation therapy. She is continuing at home stretching program. ROS General: no recent weight change, no fever, no sleep disturbances Respiratory: no cough, no shortness of air, no recurring pulmonary infections Cardiovascular/Peripheral Vascular: No chest pain, No palpitations, no edema, no shortness of breath. Gastrointestinal: no new onset incontinence, normal bowel movements reported Genitourinary: no new onset incontinence Musculoskeletal: Low back pain Psychiatric: normal mood/ affect Neurological: [denies new onset weakness in extremities], [denies new onset balance issues] Objective:: Physical Exam General: Alert and oriented x3, no acute distress, pleasant and cooperative, [on room air] Lungs: Resps E/U, Symmetrical chest expansion, Eyes: PERRL Musculoskeletal: Flexion and extension of lumbar spine somewhat guarded secondary to pain, deep tendon reflexes normal, strength in upper and lower extremities [5/5], [abnormal gait noted] Neurological: speech clear, piano refinisher equal, no gross sensory deficits Assessment:: Degenerative disc disease cervical spine with cervical radiculopathy along with degenerative disc disease lumbar spine with lumbar radiculopathy Plan:: We will set the patient up for caudal epidural steroid injection. Patient's been instructed to call the office if she has any issues prior to her next appointment. Patient will continue with her Lyrica [address] Liz has reviewed this note and agrees with this plan of care. This note was dictated using voice recognition software and may contain errors or omissions [facility] History I have reviewed the patient's past medical history: Yes Medical History: Reports:: Anxiety, Arrhythmia, Cancer, Coronary Artery Disease, Depression, Gastroesophageal Reflux Disease(GERD), Migraine, Palpitations Denies:: Diabetes Mellitus Type 1, Diabetes Mellitus Type 2, Internal Pacemaker, MRSA, Seizures *Have you ever received a pneumonia vaccine?: Yes *Have you received a flu vaccine this season?: Yes Other Medical History: Reports: Hypothyroidism, Other. Denies: Blood Transfusion Reaction Other Surgeries: Yes: No Previous Surgery, Appendectomy, Cardiac Catheterization, Cholecystectomy, Colonoscopy, , Hysterectomy-Total, Thyroidectomy, Other. No: Pacemaker Amputation: No Fractures: Yes (2018- FX. LEFT ANKLE) - *Social History Smoking Status: Never smoker Alcohol Intake: never Alcohol Intake Frequency:: holidays/special occasions only Substance Use Type: denies use *Occupational Status:: other Housing: apartment Household Members: none *Travel in the last 8 weeks: None - Psychiatric History Pschychiatric History:: Reports:: Anxiety, Depression Family Hx:: Diabetes, Cancer, Hypertension, Stroke
== END ==
PROVIDERS: PCP Physician Assistant; Visit Provider Clinical Nurse Specialist Family Health
DX: M50.30 Other cervical disc degeneration, unspecified cervical region (principal); M51.16 Intervertebral disc disorders with radiculopathy, lumbar region
CPT/HCPCS: 99212

== ENCOUNTER → 2019-07-17 11:12 | Outpatient (CLI) | payer MEDICARE, MEDICAID, SELFPAY ==
--- NOTE | 2019-07-17 11:18 | XR_ITS ---
PROCEDURE: XR FOOT WT BEARING RT 3V CLINICAL INDICATION: foot pain Foot pain COMPARISON: FTR3 FOOT-RT-3 VIEWS from 09/04/2015 [id number] XR foot LT min 3V from 02/03/2018 FINDINGS: No fracture or dislocation. No lytic or blastic change. There is normal mineralization. The joint spaces are well-preserved. No significant degenerative/arthritic changes. No erosive changes evident. Other findings:There is some minor fragmentation of the proximal aspect the lateral hallux sesamoid of questionable clinical significance. Please correlate with clinical findings. IMPRESSION: Minimal fragmentation of the lateral hallux sesamoid of questionable clinical significance. Otherwise negative Dictated by: Diego Kowalski MD 07/17/2019 12:11 Electronically signed by Diego Kowalski MD in [place] 07/17/2019 12:11
--- NOTE | 2019-07-17 11:18 | XR_ITS ---
PROCEDURE: XR FOOT WT BEARING LT 3V CLINICAL INDICATION: foot pain Plantar fasciitis if you have full coverage on your tract then, should cover in the car rental the COMPARISON: FTR3 FOOT-RT-3 VIEWS from 09/04/2015 [id number] XR foot LT min 3V from 02/03/2018 FINDINGS: No fracture or dislocation. No lytic or blastic change. There is normal mineralization. The joint spaces are well-preserved. No significant degenerative/arthritic changes. No erosive changes evident. Other findings:There is borderline pes planus. Minimal hypertrophic changes are present along the anterior distal aspect of the talus the IMPRESSION: No acute findings. Dictated by: Diego Kowalski MD 07/17/2019 12:07 Electronically signed by Diego Kowalski MD in [place] 07/17/2019 12:07
== END ==
PROVIDERS: PCP Physician Assistant; Visit Provider Podiatrist
DX: M79.672 Pain in left foot (principal); M79.671 Pain in right foot
CPT/HCPCS: 73630

== ENCOUNTER → 2019-08-19 08:47 | Outpatient (POV) | payer MEDICARE, MEDICAID, SELFPAY ==
[2019-08-19 09:59] VITALS: BP 114/85; PULSE 75; RESP 18; O2SAT 99; BMI 23.5
--- NOTE | 2019-08-19 11:12 | HMH.PAINSOAP ---
[facility] Pain Management SOAP Note Subjective:: Patient is a pleasant 59-year-old white female who presents today for medication refills. Patient is currently on oxycodone 5 mg 1 p.o. 3 times daily. She rates her pain 6 out of 10. Overall she is doing pretty poorly due to the raised anxiety from her propranolol. Patient's continually anxious. She is having periods of hypotension. I discussed with her that she needs to see her sand analyst as soon as possible. Patient is continuing her Lyrica 150 mg 1 p.o. twice daily. ROS General: no recent weight change, no fever, no sleep disturbances Respiratory: no cough, no shortness of air, no recurring pulmonary infections Cardiovascular/Peripheral Vascular: No chest pain, No palpitations, no edema, no shortness of breath. Gastrointestinal: no new onset incontinence, normal bowel movements reported Genitourinary: no new onset incontinence Musculoskeletal: Back pain, neck pain Psychiatric: normal mood/ affect, Neurological: [denies new onset weakness in extremities], [denies new onset balance issues] Objective:: Physical Exam General: Alert and oriented x3, no acute distress, pleasant and cooperative, [on room air] Lungs: Resps E/U, Symmetrical chest expansion, Eyes: PERRL Musculoskeletal: Flexion and extension of lumbar and cervical spine somewhat guarded secondary to pain, deep tendon reflexes normal, strength in upper and lower extremities [5/5], [abnormal gait noted] Neurological: speech clear, guinea pig breeder equal, no gross sensory deficits Assessment:: Degenerative disc disease lumbar spine with lumbar radiculopathy symptoms Plan:: Patient had a long discussion in regards to her pain management. We will increase her oxycodone to 10 mg 1 p.o. 3 times daily we will give her 2 months and see her back in 2 months. We will continue with her Lyrica. She is been instructed to call the office if she has any issues prior to her next appointment. Patient has been prescribed a controlled substance after being counseled on the medication, medication safety, and possible side effects. GLORY report has been obtained and reviewed prior to prescription and found to be appropriate. Opioid contract was reviewed and signed by the patient, and that they have agreed to all of the terms set forth by our compliance program. Dr. Liz has reviewed this note and agrees with this plan of care. This note was dictated using voice recognition software and may contain errors or omissions [facility] History I have reviewed the patient's past medical history: Yes Medical History: Reports:: Anxiety, Arrhythmia, Cancer, Coronary Artery Disease, Depression, Gastroesophageal Reflux Disease(GERD), Migraine, Palpitations Denies:: Diabetes Mellitus Type 1, Diabetes Mellitus Type 2, Internal Pacemaker, MRSA, Seizures *Have you ever received a pneumonia vaccine?: Yes *Have you received a flu vaccine this season?: Yes Other Medical History: Reports: Hypothyroidism, Other. Denies: Blood Transfusion Reaction Other Surgeries: Yes: No Previous Surgery, Appendectomy, Cardiac Catheterization, Cholecystectomy, Colonoscopy, , Hysterectomy-Total, Thyroidectomy, Other. No: Pacemaker Amputation: No Fractures: Yes (2018- FX. LEFT ANKLE) - *Social History Smoking Status: Never smoker Alcohol Intake: never Alcohol Intake Frequency:: holidays/special occasions only Substance Use Type: denies use *Occupational Status:: other Housing: apartment Household Members: none *Travel in the last 8 weeks: None - Psychiatric History Pschychiatric History:: Reports:: Anxiety, Depression Family Hx:: Diabetes, Cancer, Hypertension, Stroke
[2019-08-19 12:36] LABS: Amphetamine/Metha Screen,Urine Positive ng/ml (<1000)
[2019-08-19 12:37] LABS: Barbiturates Screen,Urine Negative ng/ml (<200); Benzodiazepines Screen,Urine Negative ng/ml (<200)
[2019-08-19 12:38] LABS: Cannabinoid Screen,Urine Negative ng/ml (<50); Cocaine Screen,Urine Negative ng/ml (<300)
[2019-08-19 12:39] LABS: Methadone Screen,Urine Negative ng/ml (<300)
[2019-08-19 12:40] LABS: Opiate Screen,Urine Negative ng/ml (<300)
[2019-08-19 12:41] LABS: Phencyclidine Screen,Urine Negative ng/ml (<25)
[2019-08-22 11:25] LABS: Opiates Negative (Cutoff=100)
== END ==
PROVIDERS: PCP Physician Assistant; Visit Provider Clinical Nurse Specialist Family Health
DX: M51.16 Intervertebral disc disorders with radiculopathy, lumbar region (principal); Z79.899 Other long term (current) drug therapy
CPT/HCPCS: 80305; 80361; 80365; 99212; G0480

== ENCOUNTER → 2019-08-28 06:48 | Outpatient (CLI) | payer MEDICARE, MEDICAID, SELFPAY ==
--- NOTE | 2019-08-28 06:48 | US_ITS ---
APPROVED REPORT Exam Type: Lower Extremity Segmental Pressures Concrete Tile Machine Operator: Ijeoma Lopez CRT Indications Claudication: Risk Factors Hyperlipidemia Pressures/Indices Right Indices Left Indices Brachial 120.00 mmHg Brachial 120.00 mmHg Low Thigh 119.00 mmHg 0.99 Low Thigh 127.00 mmHg 1.06 Calf 133.00 mmHg 1.11 Calf 131.00 mmHg 1.09 Ankle(PT) 126.00 mmHg 1.05 Ankle(PT) 138.00 mmHg 1.15 Ankle(DP) 122.00 mmHg 1.02 Ankle(DP) 129.00 mmHg 1.08 Digit 115.00 mmHg 0.96 Digit 105.00 mmHg 0.88 Findings R CEE 1.1 L CEE 1.2 NORMAL WAVEFORMS NORMAL PULSES R TBI 1.0 L TBI 0.9 Conclusion Normal appearing resting noninvasive lower extremity arterial study. Electronically signed by : Diego Kowalski MD 08/28/2019 16:17:24
--- NOTE | 2019-08-28 06:48 | NM_ITS ---
APPROVED REPORT Exam: Nuclear Stress Test Indication: chest pain..palpitations..short of breath..fatigue Patient Location: Outpatient Stress Tech: Rajwinder Gamboa DC Tech:Katya SawantELY RT(R)(N) Ht: 5 ft 4 in Wt: 130 lbs Bra Size: 36c HR: 58 bpm BP: 116/80 mmHg BSA: 1.63 m2 BMI: 22.3 Procedure: Patient received a 0.4 mg of intravenous Lexiscan, resting heart rate 58 bpm, resting blood pressure 116/80 mmHg, with Lexiscan maximum heart rate achived was 80 bpm which is Less than 85 % of the maximum predicted heart rate and blood pressure was 101/59 mmHg. With Lexiscan, patient denied any complaint of chest pain. Electrocardiogram Resting electrocardiogram showed sinus rhythm, with Lexiscan there is less than 1.[address] segment depression noted from the baseline EKG. The EKG portion of the exercise Myoview is nondiagnostic. Cardiac Stress and Resting SPECT Images: Cardiac Stress and Resting SPECT images were obtained using technetium 99m Myoview 31.4 mCi stress and 10.74 mCi at rest. Gated SPECT for analysis of segmental wall motion and calculation of the ejection fraction also done. Cardiac stress and resting SPECT images show uniform myocardial activity without segmental perfusion abnormality, computer derived ejection fraction is 53% with no regional wall motion abnormality, right ventricle is normal size and contractility. Conclusion: 1. The EKG portion of the Lexiscan Myoview is nondiagnostic. 2. No scintigraphic evidence of reversible ischemia seen, computer derived ejection fraction 53% with no regional wall motion abnormality, right ventricle is normal size and contractility. 3. Normal Lexiscan Myoview study. Electronically signed by : Mario Berry, 08/28/2019 15:21:41
--- NOTE | 2019-08-28 06:48 | CA_ITS ---
APPROVED REPORT Automatic Bow Maker Machine Tender: MALCOM Laterality: Bilateral Study Quality: Excellent Indications: due f/u DIANN Doppler Spectral Velocity Analysis dICA (R) 91.80/37.90 cm/s dICA (L) 55.10/22.70 cm/s Chay (R) 94.90/42.10 cm/s Chay (L) 102.40/46.30 cm/s pICA (R) 60.50/26.50 cm/s pICA (L) 103.80/39.80 cm/s dCCA (R) 98.50/33.40 cm/s dCCA (L) 90.90/30.00 cm/s pCCA (R) 94.20/36.40 cm/s pCCA (L) 88.00/30.90 cm/s Vert (R) 57.30/18.80 cm/s Vert (L) 49.30/15.40 cm/s ICA/CCA 1.00 ICA/CCA 1.10 Conclusion Duplex evaluation demonstrates stenosis of the right proximal internal carotid artery in the range of 20-49% with PSV <140 cm/sec, EDV <100 cm/sec, and IC/CC Ratio <4.0.Duplex evaluation demonstrates stenosis of the left proximal internal carotid artery in the range of 20-49% with PSV <140 cm/sec, EDV <100 cm/sec, and IC/CC Ratio <4.0. Bilaterally lower end of this scale. Tortuous left ICA mid and distally.Antegrade flow seen bilateral vertebral arteries. Electronically signed by : Diego Kowalski MD 08/28/2019 16:19:48
--- NOTE | 2019-08-28 08:30 | CA_ITS ---
APPROVED REPORT Exam: Pharmacologic Technologist: Rajwinder Gamboa, Ht: 5 ft 4 in Wt: 130 lbs BSA: 1.63 m2 Indications: CP,SOA,PALPITATIONS Medical History Medical History: Hyperlipidemia Medications: Omeprazole,,,,, Aspirin,,,,, Propranolol,,,,, TopIRAMATE,,,,, Estradiol,,,,, Diclofenac,,,,, OxYCODONE,,,,, FluTICASONE,,,,, Quetiapine,,,,, Pregabalin,,,,, LevothROXINE,,,,, Phentermine,,,,, Cardiac Risk Factors: Hyperlipidemia, FHX of CAD Stress Test Details Test: LEXISCAN Reason for pharmacologic stress test: physical limitation. HR Resting HR: 66 bpm Max Heart Rate (APMHR): 160 bpm Max HR Achieved: 110 bpm Target HR (85% APMHR): 136 bpm % of APMHR: 68 BP Resting BP: 116/80 mmHg Max BP: 119/73 mmHg ECG Clinical Exercise duration: 04:01 min Highest Stage Achieved: Exercise capacity: 1.0 METs Stress ECG Conclusion Symptoms: Mild SOA, Malaise, Neck Pain, no CP / No arrhythmias noted / No significant ST-T changes Normal ST response to exercise, Myoview images reported seperately Electronically signed by : Mario Berry, 08/28/2019 15:18:49
--- NOTE | 2019-08-28 10:32 | HMH.ITSHM ---
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 [] linzess asa levothyroxine estradol oxycodone propanolol omprazole
== END ==
PROVIDERS: PCP Physician Assistant; Visit Provider Nurse Practitioner Family
DX: I25.118 Atherosclerotic heart disease of native coronary artery with other forms of angina pectoris (principal); I73.9 Peripheral vascular disease, unspecified; I65.23 Occlusion and stenosis of bilateral carotid arteries; R00.2 Palpitations
CPT/HCPCS: 78452; 93017; 93880; 93923; A9502; J2785

== ENCOUNTER → 2019-09-22 13:09 | Outpatient (POV) | payer MEDICARE, MEDICAID, SELFPAY ==
--- NOTE | 2019-09-22 13:38 | HMH.VVPMSO ---
[facility] PM Virtual Visit SOAP Consent for virtual visit:: With the recent concerns about the COVID-19, we are trying to minimize exposure to you by shifting to telehealth appointments whenever possible. It restricts me from seeing you in person, but the trade off is protecting you during this pandemic. Can you see and hear me okay, and do you consent to this option? If not, I would be happy to see if we can reschedule your appointment in the future, when feasible. Has patient consented to this virtual visit?: Yes Subjective:: Patient is a pleasant 59-year-old white female who presents today for medication refills. Patient is currently on oxycodone 10 mg 1 p.o. 4 times daily. She states it is beneficial. She was able to stop he pram a while and is doing better with her anxiety. Patient is continuing her Lyrica 150 mg twice daily. She is having some additional radicular symptoms down her left leg. We will set her up for an epidural steroid injection. Patient is having difficulty due to the symptoms to complete activities of daily living. ROS General: no recent weight change, no fever, no sleep disturbances Respiratory: no cough, no shortness of air, no recurring pulmonary infections Cardiovascular/Peripheral Vascular: No chest pain, No palpitations, no edema, no shortness of breath. Gastrointestinal: no new onset incontinence, normal bowel movements reported Genitourinary: no new onset incontinence Musculoskeletal: Back pain, leg pain Psychiatric: normal mood/ affect Neurological: [denies new onset weakness in extremities], [denies new onset balance issues] Objective:: Physical exam: Constitutional: Healthy appearing, well-developed, alert, in no acute distress Psychiatric: Judgment and insight intact, Alert and oriented x4 Mood and affect: Mood normal, affect appropriate Head and face: Inspection: Normocephalic atraumatic, extraocular movement intact Respiratory: Breathing nonlabored, nondyspneic Cardiovascular: No cyanosis, clubbing, or edema observed Skin: Head and neck: Skin with no lesions or rash observed Gait: Able to walk without assistive device: Able to heel and toe walk Neurologic: Sensation grossly intact per patient Musculoskeletal: Patient has decreased range of motion of lumbar spine. Assessment:: Degenerative disc disease lumbar spine with lumbar radiculopathy Plan:: Set the patient up for an L4-L5 lumbar epidural steroid injection. We will continue her oxycodone 10 mg 1 p.o. 4 times daily. And Lyrica 150 mg 1 p.o. twice daily. I will follow-up with the patient after her injection and reassess her symptoms at that time. This encounter was performed as a telemedicine visit via secure 2 way video and audio to minimize risk and transmission of Covid-19. The patient and we understand the limitations of a telemedicine visit including inability to check reflexes, possibly missing subtle findings on physical exam. Alternative options were presented to the patient and the patient elected to proceed with the visit. We specifically discussed risk factors for Covid-19 including age, heart or lung disease, diabetes, immunosuppression and travel. We also discussed that NSAIDs may worsen Covid-19 infection symptoms and that they should not be used to treat Covid-19 symptoms. Patient was also informed that corticosteroids in any form oral or injectable will decrease immune response and may increase risk of Covid-[address] Liz has reviewed this patient's chart and this note and agrees with plan of care. Patient has been instructed to call the office if they have any issues prior to the next appointment. Patient has been prescribed a controlled substance after being counseled on the medication, medication safety, and possible side effects. GLORY report has been obtained and reviewed prior to prescription and found to be appropriate. Opioid contract was reviewed and signed by the patient, and that they noland
== END ==
PROVIDERS: Visit Provider Clinical Nurse Specialist Family Health
DX: M51.16 Intervertebral disc disorders with radiculopathy, lumbar region (principal)
CPT/HCPCS: 99212

== ENCOUNTER 2019-09-26 09:32 | Day surgery (SDC) | payer MEDICARE, MEDICAID, SELFPAY ==
[2019-09-26 10:07] VITALS: BP 118/76; PULSE 69; RESP 18; TEMP 36.7; O2SAT 96; BMI 23.0
[2019-09-26 10:25] VITALS: BP 127/80; PULSE 74; RESP 18; O2SAT 99
[2019-09-26 10:26] VITALS: BP 130/79; PULSE 76; RESP 18; O2SAT 98
--- NOTE | 2019-09-26 10:38 | HMH.PMPROC ---
- Procedure Date: 09/26/19 Time: 10:38 Anesthesiologist:: Eber Liz MD Complications:: None Pre-procedure Diagnosis:: Degenerative disc disease of lumbar spine with lumbar radiculopathy symptoms Post-procedure Diagnosis:: Same Indications for Procedure:: This patient is a pleasant 59-year-old white female who we are treating for low back pain with lumbar radiculopathy symptoms. She has increasing pain in her back with some neurological symptoms down her left leg she says she feels like running water down her left leg which may indicate a pinched nerve with some radicular symptoms. We will do lumbar epidural steroid injection today to help her with her pain symptoms. Her pain has worsened. Is affecting activities of daily living and functionality. We will do an injection today to keep her from taking more of her oral opioids and also keep her out of the emergency room. Procedure Details:: Lumbar epidural steroid injection under fluoroscopy Informed consent was obtained and the risk and benefits of the procedure was explained to the patient. The patient was taken to the procedure room. The patient was placed prone on the procedure table. The patient was prepped and draped in sterile fashion. C-arm fluoroscopy was used to view the lumbar spine. Skin and subcutaneous tissues were anesthetized using lidocaine. I placed an 18-gauge epidural needle and advanced into the L4-L5 interspace using fluoroscopic guidance and [id number] to air. After confirmation of needle placement in the epidural space with dye I injected 2 mL of lidocaine 1.5% with Depo-Medrol 80 mg. Patient tolerated the procedure well with no complications. Plan and Disposition:: We will follow-up with her in 2 weeks. Will reevaluate her symptoms at that time.
[2019-09-26 10:43] VITALS: BP 121/71; PULSE 71; RESP 18; O2SAT 96
== END 2019-09-26 10:40 | disposition home or self-care (01) ==
LOC: SC.PAINP 09:33
PROVIDERS: PCP Physician Assistant; Visit Provider Anesthesiology
DX: M51.16 Intervertebral disc disorders with radiculopathy, lumbar region (principal)
CPT/HCPCS: 62323; J1040; Q9966

== ENCOUNTER → 2019-10-13 08:32 | Outpatient (POV) | payer MEDICARE, MEDICAID, SELFPAY ==
--- NOTE | 2019-10-13 08:47 | HMH.VVPMSO ---
[facility] Virtual Visit SOAP Consent for virtual visit:: With the recent concerns about the COVID-19, we are trying to minimize exposure to you by shifting to telehealth appointments whenever possible. It restricts me from seeing you in person, but the trade off is protecting you during this pandemic. Can you see and hear me okay, and do you consent to this option? If not, I would be happy to see if we can reschedule your appointment in the future, when feasible. Has patient consented to this virtual visit?: Yes Subjective:: Patient is a pleasant 59-year-old white female who we are treating for low back pain with lumbar radiculopathy. She status post injection. She rates her pain a 6 out of 10. Her overall issue at this time is actually her inability to swallow. She has a CT scan along with allergy testing and barium swallow scheduled. Patient and I discussed potential neurosurgical consultation however I do believe she needs to see her specialist for her throat condition at this time. She is being medically managed by oxycodone 10 mg 3 times daily and Lyrica 150 mg twice daily. [facility] #[id number] reviewed. Patient is not in need of any refills today. ROS General: no recent weight change, no fever, no sleep disturbances Respiratory: no cough, no shortness of air, no recurring pulmonary infections Cardiovascular/Peripheral Vascular: No chest pain, No palpitations, no edema, no shortness of breath. Gastrointestinal: no new onset incontinence, normal bowel movements reported Genitourinary: no new onset incontinence Musculoskeletal: Back pain, leg pain Psychiatric: normal mood/ affect Neurological: [denies new onset weakness in extremities], [denies new onset balance issues] Objective:: Physical exam: Constitutional: Healthy appearing, well-developed, alert, in no acute distress Psychiatric: Judgment and insight intact, Alert and oriented x4 Mood and affect: Mood normal, affect appropriate Head and face: Inspection: Normocephalic atraumatic, extraocular movement intact Respiratory: Breathing nonlabored, nondyspneic Cardiovascular: No cyanosis, clubbing, or edema observed Skin: Head and neck: Skin with no lesions or rash observed Gait: Able to walk without assistive device: Able to heel and toe walk Neurologic: Sensation grossly intact per patient Musculoskeletal: Decreased range of motion bilateral lateral lower extremities and lumbar spine Assessment:: Degenerative disc disease lumbar spine with lumbar radiculopathy Plan:: We will see the patient back in 1 month reassess her at that time. She may need a neurosurgical consultation. Patient has been instructed to call the office if she has any issues prior to her next appointment. This encounter was performed as a telemedicine visit via secure 2 way video and audio to minimize risk and transmission of Covid-19. The patient and we understand the limitations of a telemedicine visit including inability to check reflexes, possibly missing subtle findings on physical exam. Alternative options were presented to the patient and the patient elected to proceed with the visit. We specifically discussed risk factors for Covid-19 including age, heart or lung disease, diabetes, immunosuppression and travel. We also discussed that NSAIDs may worsen Covid-19 infection symptoms and that they should not be used to treat Covid-19 symptoms. Patient was also informed that corticosteroids in any form oral or injectable will decrease immune response and may increase risk of Covid-[address] Liz has reviewed this patient's chart and this note and agrees with plan of care. Patient has been instructed to call the office if they have any issues prior to the next appointment. Time In:: 08:10 Time Out:: 08:20 [facility] History I have reviewed the patient's past medical history: Yes Medical History: Reports:: Anxiety, Arrhythmia, Asthma, Cancer, Coronary Artery Disease, Depression, Gastroeso
== END ==
PROVIDERS: Visit Provider Clinical Nurse Specialist Family Health
DX: M51.16 Intervertebral disc disorders with radiculopathy, lumbar region (principal)
CPT/HCPCS: 99212

== ENCOUNTER → 2019-10-15 07:19 | Outpatient (CLI) | payer MEDICARE, MEDICAID, SELFPAY ==
--- NOTE | 2019-10-15 07:20 | CT_ITS ---
PROCEDURE: CT HEAD/BRAIN WO CON CLINICAL INDICATION: Dysphagia Migraine headache, dizziness, blurred vision COMPARISON: HEADWO CT head/brain wo con from 02/03/2018 TECHNIQUE: Axial images obtained. All CT scans at the facility use one or more dose reduction, viz: automated exposure control, ma/kV adjustment per patient size (including targeted exams where dose is matched to indication, i.e. head), or iterative reconstruction technique. FINDINGS: No midline shift, mass effect, intracranial hemorrhage, hydrocephalus, or extra-axial fluid collection is evident. The calvarium has an unremarkable appearance. No mastoid effusion. No sinus air-fluid level. IMPRESSION: No acute intracranial finding Dictated by: Diego Kowalski MD 10/15/2019 10:42 Electronically signed by Diego Kowalski MD in [place] 10/15/2019 10:42
--- NOTE | 2019-10-15 07:20 | FL_ITS ---
PROCEDURE: FL BARIUM SWALLOW CLINICAL INDICATION: Dysphaga COMPARISON: No exams were available for comparison TECHNIQUE: In the upright position the patient was observed to swallow barium in both the AP and lateral view. The cervical esophagus was examined under fluoroscopy with images obtained. The patient was then placed prone in the right anterior oblique position and was observed to swallow barium with Valsalva technique . FLUOROSCOPY TIME: 1 minutes and 16 seconds FINDINGS: There was no evidence of aspiration. There was normal peristalsis. No filling defects or mucosal abnormalities. No masses or strictures. No hiatal hernia or other significant anomaly. Study is somewhat limited as patient could not swallow a large amount contrast at a time. IMPRESSION: Negative barium swallow. Dictated by: Diego Kowalski MD 10/15/2019 18:20 Electronically signed by Diego Kowalski MD in [place] 10/15/2019 18:20
== END ==
PROVIDERS: PCP Physician Assistant; Visit Provider Physician Assistant
DX: R13.10 Dysphagia, unspecified (principal)
CPT/HCPCS: 70450; 74220

== ENCOUNTER → 2019-11-03 16:09 | Outpatient (CLI) | payer MEDICARE, MEDICAID, SELFPAY ==
--- NOTE | 2019-11-03 | XR_ITS ---
PROCEDURE: XR CHEST 2V CLINICAL HISTORY: LARYNGITIS; FAMILY HISTORY CAD COMPARISON: FL BARIUM SWALLOW from 10/15/2019 FINDINGS: The cardiomediastinal silhouette and pulmonary vascularity are within normal limits. Loop recorder device projecting over left hilar region. The lungs are clear without infiltrates, suspicious nodules, or pleural effusions. There is either a markedly hypoplastic right 1st rib or there has been previous surgical resection of the posterior aspect of the right 1st rib or possibly lytic destruction. Very faint bony attenuation is seen of the anterior aspect of the right 1st rib. No acute bony abnormalities. IMPRESSION: Apparent abnormality of the right 1st rib and consider a follow-up apical lordotic chest and/or CT scan of the chest for better evaluation Dictated by: Dr. Pee Weems MD 11/03/2019 17:[address] Pee Weems MD in [place] 11/03/2019 17:51
[2019-11-03 16:57] LABS: Basophils % 0.8 % (0.1-2.0); Eosinophils % 0.4 % (0.1-12.0); Hematocrit 44.9 % (37.0-47.0); Hemoglobin 14.8 g/dL (12.2-16.2); Lymphocytes # 1.5 K/mm3 (0.7-4.5); Lymphocytes % 27.9 % (10-50); Mean Corpuscular HGB Conc 32.9 g/dL (31.8-35.4); Mean Corpuscular Volume 91.4 fl (81-99); Mean Platelet Volume 8.3 fl (7.4-10.4); Monocytes # 0.3 K/mm3 (0.1-1.0); Monocytes % 5.9 % (1.7-9.3); Neutrophils # 3.5 K/mm3 (1.8-7.8); Neutrophils % 65.1 % (37.0-80.0); Platelet Count 220 K/mm3 (142-424); Red Blood Count 4.91 M/mm3 (4.20-5.40); Red Cell Distribution Width 13.9 % (11.5-17.5); White Blood Count 5.4 K/mm3 (4.8-10.8)
[2019-11-03 18:08] LABS: Coronavirus 19 IgG Antibody Negative (Negative); Coronavirus 19 IgM Antibody Negative (Negative)
[2019-11-03 18:27] LABS: Alanine Aminotransferase 12 U/L (12-78); Albumin Level 4.4 g/dl (3.5-5.0); Albumin/Globulin Ratio 1.5 (1.1-1.8); Alkaline Phosphatase 73 U/L (38-126); Anion Gap 11.2 mEq/L (5-15); Aspartate Amino Transferase 24 U/L (14-36); Bilirubin,Total 0.7 mg/dl (0.2-1.3); Blood Urea Nitrogen 9 mg/dl (7-17); Calcium 9.6 mg/dl (8.4-10.2); Carbon Dioxide 27 mmol/L (22.0-30.0); Chloride 101 mmol/L (98-107); Estimated Glomerular Filt Rate 57 ml/min (>60); GFR (African American) 68 ML/MIN (>60); Glucose 84 mg/dl (74-100); Potassium 4.2 mmoL/L (3.5-5.1); Sodium 135 mmol/L (136-145); Total Protein,Serum 7.4 g/dl (6.3-8.2)
[2019-11-03 18:55] LABS: Thyroid Stimulating Hormone 0.31 uIU/mL (0.465-4.68)
[2019-11-05 14:16] LABS: Triiodothyronine (T3) Total 84 ng/dL (71-180)
== END ==
PROVIDERS: Visit Provider Otolaryngology
DX: Z01.818 Encounter for other preprocedural examination (principal); Z12.11 Encounter for screening for malignant neoplasm of colon; E03.9 Hypothyroidism, unspecified; J04.0 Acute laryngitis
CPT/HCPCS: 36415; 71046; 80053; 84443; 84480; 85025; 86328

== ENCOUNTER 2019-11-04 08:10 | Day surgery (SDC) | payer MEDICARE, MEDICAID, SELFPAY ==
--- NOTE | 2019-10-31 15:01 | SUR.PREOP ---
10/31/2019--PHONE CALL MADE TO PATIENT. PATIENT UNDERSTANDS THAT LAB WORK AND COVID TESTING NEEDS TO BE COMPLETED BEFORE 12PM. PATIENT UNDERSTANDS IF LAB WORK AND COVID-19 TESTS ARE NOT COMPLETED BY 12PM ON THAT DATE, THE SURGERY SCHEDULED WILL BE CANCELLED AND RESCHEDULED FOR ANOTHER TIME.
[2019-11-04 08:44] VITALS: BP 118/78; PULSE 80; RESP 16; TEMP 37.2; O2SAT 98
[2019-11-04 09:02] VITALS: BMI 22.6
--- NOTE | 2019-11-04 09:15 | P.PN_ITS ---
[facility] Anesthesia Checklist - Patient Identification Patient Identification: Arm Band - Structural Data Admitted From: Home Planned Operative Procedure/s: colonoscopy Consent for Planned Operative Procedure(s) Verified: Yes Verified Documents: Surgical Consent, History and Physical - NPO Status Verified Time NPO: 00:00 - Additional verifications Anesthesia Reactions: No Hx Blood Transfusions: No Blood Transfusion Reaction: No - Airway Assessment C-Spine Mobility Assessed: Yes (mp2) TMJ Mobility Assessed: Yes Dentition: Good Dentition - Neurological Assessment Level of Consciousness: Awake, Alert - Anesthesia Plan Anesthesia Risk discussed: Yes Anesthesia Plan: Verified ASA Class: III Anesthesia Type: MAC [facility] History I have reviewed the patient's past medical history: Yes Medical History: Reports:: Anxiety, Arrhythmia, Asthma, Cancer (ovarian, skin lesions, thyroid), Coronary Artery Disease, Depression, Gastroesophageal Reflux Disease(GERD), Hyperlipidemia, Hypertension, Migraine, Palpitations (loop recorder), Seizures (last seizure over 6 months ago) Denies:: Diabetes Mellitus Type 1, Diabetes Mellitus Type 2, Internal Pacemaker, MRSA *Have you ever received a pneumonia vaccine?: No *Have you received a flu vaccine this season?: Yes Other Medical History: Reports: Hypothyroidism, Thyroid Disease, Other. Denies: Blood Transfusion Reaction Anesthesia experience/problems:: nac Other Surgeries: Yes: Appendectomy, Cardiac Catheterization, Cholecystectomy, Colonoscopy, , Hysterectomy-Total, Thyroidectomy, Other. No: Pacemaker Amputation: No Fractures: Yes (2018- FX. LEFT ANKLE) - *Social History Educational Level: Completed GED/General Educational Development Smoking Status: Never smoker Alcohol Intake: never Alcohol Intake Frequency:: holidays/special occasions only Substance Use Type: denies use *Occupational Status:: disabled Housing: apartment Household Members: none *Travel in the last 8 weeks: None - Psychiatric History Pschychiatric History:: Reports:: Anxiety, Depression Family Hx:: Cancer, Coronary Artery Disease, Diabetes, Heart Attack, Hyperlip idemia, Hypertension, Kidney Disease, Thyroid Disorder
[2019-11-04 09:19] VITALS: O2SAT 98
--- NOTE | 2019-11-04 10:08 | HMH.SCOPE ---
- Procedure: Date: 11/04/19 Procedure Performed:: Total colonoscopy to terminal ileum with polypectomy by snare and biopsy Indications:: Patient is a 59-year-old female referred by Lulu Noyola for colonoscopy. Patient has numerous medical comorbidities. Of note, the patient has approximately 4 weeks of significant hoarseness for which she is seeing some subspecialist. She is chronic pain and takes Lyrica and oxycodone. She feels that this creates some constipation and she is on Linzess. She did undergo colonoscopy for constipation by Dr. Robb in 2004 which was reportedly normal . She states that her father was diagnosed with colon cancer in his 70s, her paternal grandfather and several paternal uncles. Denies any rectal bleeding. Performing Provider:: Mc Gr MD Referring Provider:: Lulu Noyola Sedation:: Propofol Procedure:: Patient was taken to endoscopy procedure room. She was positioned in a lateral decubitus position. Adequate intravenous sedation was achieved with anesthesia titration of propofol. Variable stiffness Olympus colonoscope was inserted via the anus. It was advanced to the cecum with some minimal difficulty due to some floppiness and redundancy of the sigmoid colon. Ileocecal valve and appendiceal orifice were clearly identified. Colonoscope was advanced into the terminal ileum which appeared grossly normal. Colonoscope was withdrawn through the colon with careful surveillance. She has several rare diverticuli scattered throughout however she did have some more pronounced sigmoid diverticulosis. These were noninflamed. At the splenic flexure there were a couple small polyps removed with cold cutting snare with residual polyp tissue removed with biopsy forceps. In the descending colon there was a small polyp removed with cold snare. In the rectum there was a hyperplastic appearing polyp removed with biopsy forceps. Retroflexion within the rectum revealed nonbleeding internal hemorrhoids. Colonoscope was withdrawn. Findings:: Polyps Diverticulosis Recommendations:: Likely repeat colonoscopy in 2 or 3 years pending the pathology Complications:: None immediately apparent Estimated blood obtained (mL): 2
[2019-11-04 10:10] VITALS: BP 115/71; PULSE 80; RESP 16; TEMP 36.6; O2SAT 98
[2019-11-04 10:20] VITALS: BP 125/80; PULSE 70; RESP 16; O2SAT 100
[2019-11-04 10:30] VITALS: BP 128/64; PULSE 79; RESP 16; O2SAT 97
[2019-11-04 10:40] VITALS: BP 125/77; PULSE 76; RESP 16; O2SAT 98
== END 2019-11-04 10:40 | disposition home or self-care (01) ==
LOC: OUTP 08:11
PROVIDERS: PCP Physician Assistant; Visit Provider Surgery
PROC: 0DJD8ZZ Inspection of Lower Intestinal Tract, Via Natural or Artificial Opening Endoscopic (ICD-10-PCS; principal; 2019-11-04 09:30)
DX: Z12.11 Encounter for screening for malignant neoplasm of colon (principal); Z80.0 Family history of malignant neoplasm of digestive organs; K63.5 Polyp of colon; K57.30 Diverticulosis of large intestine without perforation or abscess without bleeding; Z79.82 Long term (current) use of aspirin; Z79.51 Long term (current) use of inhaled steroids; Z79.899 Other long term (current) drug therapy; F41.9 Anxiety disorder, unspecified; J45.909 Unspecified asthma, uncomplicated; I25.10 Atherosclerotic heart disease of native coronary artery without angina pectoris; E78.5 Hyperlipidemia, unspecified; I10 Essential (primary) hypertension
CPT/HCPCS: 45385; 88305

== ENCOUNTER → 2019-11-11 09:59 | Outpatient (POV) | payer MEDICARE, MEDICAID, SELFPAY ==
[2019-11-11 10:45] VITALS: BP 107/79; PULSE 89; RESP 18; TEMP 36.8; O2SAT 99; BMI 22.6
[2019-11-11 11:47] LABS: Benzodiazepines Screen,Urine Negative ng/ml (<200)
[2019-11-11 11:48] LABS: Amphetamine/Metha Screen,Urine Negative ng/ml (<1000); Barbiturates Screen,Urine Negative ng/ml (<200)
[2019-11-11 11:49] LABS: Cannabinoid Screen,Urine Negative ng/ml (<50)
[2019-11-11 11:50] LABS: Cocaine Screen,Urine Negative ng/ml (<300); Methadone Screen,Urine Negative ng/ml (<300)
[2019-11-11 11:51] LABS: Opiate Screen,Urine Positive ng/ml (<300)
[2019-11-11 11:52] LABS: Phencyclidine Screen,Urine Negative ng/ml (<25)
--- NOTE | 2019-11-11 13:03 | HMH.PAINSOAP ---
[facility] Pain Management SOAP Note Subjective:: Patient is a pleasant 59-year-old white female who presents today for follow-up. She rates her pain a 5 out of 10. She is in obvious discomfort today. Patient has a low back pain with radiculopathy. She is been on oxycodone and Lyrica for quite some time and at this point she is not having much relief with that. Patient is frustrated with injective therapy given the limited relief she gets from it. Patient and I had a long discussion about intrathecal therapy. I do believe she may be a good candidate for this. ROS General: no recent weight change, no fever, no sleep disturbances Respiratory: no cough, no shortness of air, no recurring pulmonary infections Cardiovascular/Peripheral Vascular: No chest pain, No palpitations, no edema, no shortness of breath. Gastrointestinal: no new onset incontinence, normal bowel movements reported Genitourinary: no new onset incontinence Musculoskeletal: Back pain, leg pain Psychiatric: normal mood/ affect Neurological: [denies new onset weakness in extremities], [denies new onset balance issues] Objective:: Physical Exam General: Alert and oriented x3, no acute distress, pleasant and cooperative, [on room air] Lungs: Resps E/U, Symmetrical chest expansion, Eyes: PERRL Musculoskeletal: Flexion and extension of lumbar spine somewhat guarded secondary to pain, deep tendon reflexes normal, strength in upper and lower extremities [5/5], [abnormal gait noted] Neurological: speech clear, youth minister equal, no gross sensory deficits Assessment:: Degenerative disc disease lumbar spine lumbar radiculopathy Plan:: We will schedule the patient for psychological evaluation to determine if she is a candidate for a intrathecal pain pump trial. Patient understands she has to come off of her oxycodone 48 hours prior to the trial and 48 hours prior to the implant. She understands that after intrathecal pain pump implant there will be no more oral narcotic medications. Patient is agreeable. She is tried and failed medications, anti-inflammatories, conservative measures such as physical therapy and injections. I will follow-up with her after her psychological evaluation and trial. I will reassess her symptoms at that time she has been instructed to call the office if she has any issues prior to her next appointment. Dr. Liz has reviewed this note and agrees with this plan of care. This note was dictated using voice recognition software and may contain errors or omissions [facility] History I have reviewed the patient's past medical history: Yes Medical History: Reports:: Anxiety, Arrhythmia, Asthma, Cancer (ovarian, skin lesions, thyroid), Coronary Artery Disease, Depression, Gastroesophageal Reflux Disease(GERD), Hyperlipidemia, Hypertension, Migraine, Palpitations (loop recorder), Seizures (last seizure over 6 months ago) Denies:: Diabetes Mellitus Type 1, Diabetes Mellitus Type 2, Internal Pacemaker, MRSA *Have you ever received a pneumonia vaccine?: Yes *Have you received a flu vaccine this season?: Yes Other Medical History: Reports: Hypothyroidism, Thyroid Disease, Other. Denies: Blood Transfusion Reaction Other Surgeries: Yes: No Previous Surgery, Appendectomy, Cardiac Catheterization, Cholecystectomy, Colonoscopy, , Hysterectomy-Total, Thyroidectomy, Other. No: Pacemaker Amputation: No Fractures: Yes (2018- FX. LEFT ANKLE) - *Social History Smoking Status: Never smoker Alcohol Intake: never Alcohol Intake Frequency:: holidays/special occasions only Substance Use Type: denies use *Occupational Status:: other Housing: apartment Household Members: none *Travel in the last 8 weeks: None - Psychiatric History Pschychiatric History:: Reports:: Anxiety, Depression Family Hx:: Cancer, Coronary Artery Disease, Diabetes, Heart Attack, Hyperlipidemia, Hypertension, Kidney Disease, Thyroid Disorder
[2019-11-15 07:31] LABS: Oxycodone (GC/MS) >3000 ng/mL (Cutoff=100)
[2019-11-15 09:27] LABS: Opiates Negative (Cutoff=100)
== END ==
PROVIDERS: PCP Physician Assistant; Visit Provider Clinical Nurse Specialist Family Health
DX: M51.16 Intervertebral disc disorders with radiculopathy, lumbar region (principal); Z79.899 Other long term (current) drug therapy
CPT/HCPCS: 80305; 80361; 80365; 99212; G0480

== ENCOUNTER → 2019-11-18 14:00 | Outpatient (CLI) | payer MEDICARE, MEDICAID, SELFPAY ==
--- NOTE | 2019-11-18 14:00 | CT_ITS ---
PROCEDURE: CT SOFT TISSUE NECK WO CON CLINICAL HISTORY: laryngitis/chronic neck pain Laryngitis, chronic neck COMPARISON: No exams were available for comparison TECHNIQUE: Oral Contrast: None IV Contrast: None Axial images obtained with sagittal and coronal reformats. All CT scans at the facility use one or more dose reduction, viz: automated exposure control, ma/kV adjustment per patient size (including targeted exams where dose is matched to indication, i.e. head), or iterative reconstruction technique. FINDINGS: The nasopharynx has an unremarkable appearance. Scattered small nodes are present in the neck. No dominant adenopathy. There is mild thickening of the aryepiglottic folds which is symmetric. The epiglottis has an unremarkable appearance. No prevertebral soft tissue swelling. No obvious thyroid mass. The submandibular glands and parotid glands are unremarkable. There is slight increased soft tissue density in the right parapharyngeal region nonspecific possibly related to nondistention. Direct visualization may confirm. There is a 3 mm noncalcified nodule in the right apex medially IMPRESSION: 1. Slight increased soft tissue density in the right parapharyngeal region in the oropharynx. This is nonspecific and may be related to nondistention. Direct visualization may confirm. 2. Mild thickening of the aryepiglottic folds which is also nonspecific possibly due to inflammatory change. 3. Otherwise negative unenhanced CT scan of the neck Dictated by: Diego Kowalski MD 11/19/2019 11:16 Electronically signed by Diego Kowalski MD in [place] 11/19/2019 11:16
== END ==
PROVIDERS: PCP Physician Assistant; Visit Provider Otolaryngology
DX: G89.29 Other chronic pain (principal); M54.2 Cervicalgia; M54.9 Dorsalgia, unspecified
CPT/HCPCS: 70490

== ENCOUNTER → 2019-12-29 10:49 | Outpatient (POV) | payer MEDICARE, MEDICAID, SELFPAY ==
[2019-12-29 11:30] VITALS: BP 132/88; PULSE 79; RESP 18; O2SAT 98; BMI 23.3
--- NOTE | 2019-12-29 11:45 | HMH.PAINSOAP ---
[facility] Pain Management SOAP Note Subjective:: Patient is a 59-year-old white female who presents today for follow-up. She has been treated for low back pain with lumbar radiculopathy symptoms as well as neck pain with cervical radiculopathy symptoms. Patient is currently on oxycodone 10 mg 1 tablet p.o. 4 times daily and Lyrica. Patient says that she has been on these medications for some time is not getting relief. She did undergo a psychological evaluation for possible intrathecal therapy. She was considered an appropriate candidate. Patient says she would like to proceed with a trial. She is on anticoagulation therapy and does have a loop recorder. She does rate her pain a 7 out of 10 today. Patient I did discuss a weaning process. Review of Systems General: No recent weight changes, no fever, no sleep disturbances Respiratory: No cough, no shortness of air, no recurring pulmonary infections Cardiovascular/peripheral vascular: No chest pain, no palpitations, no edema, no shortness of breath Gastrointestinal: No new onset incontinence, normal bowel movements reported Genitourinary: No new onset incontinence Musculoskeletal: Low back pain, neck pain Psychiatric: Normal mood/affect Neurological: [Denies weakness in extremities], [denies balance issues] Objective:: Physical exam General: Alert and oriented x3, no acute distress, pleasant and cooperative, [on room air] Lungs: Respirations even and unlabored, symmetrical chest expansion Eyes: PERRL Musculoskeletal: Flexion and extension of lumbar and cervical spine somewhat guarded secondary to pain, deep tendon reflexes normal, strength in upper and lower extremities [5/5], [abnormal gait noted] Neurological: Speech clear, network engineer administrator equal, no gross sensory deficit Assessment:: Degenerative disc disease lumbar spine with lumbar radiculopathy symptoms, degenerative disc disease cervical spine with cervical radiculopathy symptoms Plan:: The patient and I did discuss a weaning. She does understand shortly to wean on her medications before undergoing the trial for intrathecal therapy. We will start to wean the patient with her medicine of oxycodone 10 mg 1 tablet p.o. 5 times daily and will decrease her medication by 1 pill weekly. We will see her back in the clinic in a month to reassess her symptoms. She has been instructed to contact the clinic if she has any concerns before next appointment. The patient and I specifically discussed risk factors for COVID19. These risks include, but are not limited to age greater than 60, heart or lung disease, diabetes, immunosuppression, and travel. We also discussed NSAIDs may worsen COVID19 infection or symptoms. Patient should not use NSAIDs to treat COVID19 signs or symptoms. Patient was also informed that any type of corticosteroid of any form (oral or injection) will decrease the patient's immune system response and may increase the likelihood of COVID19 infection [address] symptoms[address] Liz has reviewed this note and agrees with this plan of care. This note was dictated using voice recognition software and make contain errors or omissions. [facility] History I have reviewed the patient's past medical history: Yes Medical History: Reports:: Anxiety, Arrhythmia, Asthma, Cancer, Coronary Artery Disease, Depression, Gastroesophageal Reflux Disease(GERD), Hyperlipidemia, Hypertension, Migraine, Palpitations, Seizures Denies:: Diabetes Mellitus Type 1, Diabetes Mellitus Type 2, Internal Pacemaker, MRSA *Have you ever received a pneumonia vaccine?: Yes *Have you received a flu vaccine this season?: Yes Other Medical History: Reports: Hypothyroidism, Thyroid Disease, Other. Denies: Blood Transfusion Reaction Other Surgeries: Yes: No Previous Surgery, Appendectomy, BSO, Cardiac Catheterization, Cholecystectomy, Colonoscopy, , Hysterectomy-Total, Thyroidectomy, Other. No: Pacemaker Amputation: No Fractures: Yes (2018- FX. LEFT ANKLE) - *Social H
== END ==
PROVIDERS: PCP Physician Assistant; Visit Provider Clinical Nurse Specialist Family Health
DX: M51.16 Intervertebral disc disorders with radiculopathy, lumbar region (principal); M50.10 Cervical disc disorder with radiculopathy, unspecified cervical region
CPT/HCPCS: 99212

== ENCOUNTER 2020-01-05 13:37 | Emergency (ER) | payer MEDICARE, MEDICAID, SELFPAY ==
[2020-01-05 13:51] VITALS: BP 143/100; PULSE 67; RESP 18; O2SAT 100; BMI 22.8
--- NOTE | 2020-01-05 14:08 | XR_ITS ---
PROCEDURE: XR CHEST PORTABLE CLINICAL HISTORY: short of breath COMPARISON: CXR2V XR chest 2V from 10/24/[address] angio chest from 02/03/2018 CXR2V XR chest 2V from 02/03/2018 XR CHEST 2V from 11/03/2019 FINDINGS: The cardiomediastinal silhouette and pulmonary vascularity are within normal limits. A loop recorder device is noted overlying the left heart. No lobar consolidation or collapse No acute bony abnormalities. IMPRESSION: No acute findings. Dictated by: Diego Kowalski MD 01/05/2020 14:33 Electronically signed by Diego Kowalski MD in [place] 01/05/2020 14:33
--- NOTE | 2020-01-05 14:09 | HMH.EDGENADL ---
ED Disposition Clinical Impression: Acute anxiety Disposition: Home, Self-Care Condition on Discharge: Good Instructions: DI for Anxiety -- Adult Additional Instructions: You have been evaluated for palpitations, likely due to anxiety. Please continue taking your medications as prescribed. Follow-up with your primary care doctor in 1 to 2 days for symptom recheck. Return to the emergency department if you have any new or worsening symptoms, chest pain, shortness of breath, other concerns. Time of Disposition: 14:59 - Critical Care Critical Care Time: No Attestation: On , the high probability of a clinically significant, sudden or life threatening deterioration of the following system(s) required my full and direct attention, intervention and personal management. The time I documented below is in addition to time spent performing reported procedures but includes the following listed in this critical care notation. Medical Decision Making - Medical Records Medical records reviewed: Yes: I reviewed the patient's medical records. - Daniele Inquiry Pt receiving controlled substance: No Vital Signs: 01/05/20 13:51 Pulse Rate [Radial] 67 Respiratory Rate 18 Blood Pressure [Right Arm] 143/100 H Blood Pressure Mean [Right Arm] 114 Blood Pressure Source [Right Arm] Automatic Cuff Blood Pressure Position [Right Arm] Sitting 02 Sat by Pulse Oximetry 100 Oxygen Delivery Method Room Air Orders (Tests/Meds): ED MEDICATIONS Discontinued Medications Generic Name Dose Route Start Last Admin Trade Name Maria Alejandra PRN Reason Stop Dose Admin Lorazepam 1 mg 01/05/20 14:08 Ativan 1mg Tablet PO 01/05/20 14:09 ONCE ONE ORDERS Category Date Time Status EKG Request [ECG Request by /Ni] Stat Y 01/05/20 14:08 Ordered - CT Data CT Scan: Chest Time Received: 14:43 Findings Narrative: CXR FINDINGS: The cardiomediastinal silhouette and pulmonary vascularity are within normal limits. A loop recorder device is noted overlying the left heart. No lobar consolidation or collapse No acute bony abnormalities. IMPRESSION: No acute findings. Medical Decision Narrative: In summary this is a 59-year-old female with history of anxiety presenting to the emergency department with palpitations. She is overall appearing on arrival. She is tachypneic. Says she feels very anxious. Vital signs are stable. Plan to obtain EKG and chest x-ray. Patient requested medication to help with her anxiety. Given 1 mg of p.o. Ativan. Fingerstick blood glucose is appropriate. EKG shows sinus rhythm without evidence of ischemia or arrhythmia. Chest x-ray shows no abnormality within the thorax. General Adult HPI - General Chief complaint: Anxiety Stated complaint: Panic Attack Time Seen by Provider: 01/05/20 13:50 Mode of Arrival: Ambulatory Limitations: No Limitations Description of Symptoms (Recalled from ER Triage Doc. by RN): Reports anxiety all weekend. States it feels like her chest is on fire. Currently taking Wellbutrin and it is not working. - History of Present Illness HPI narrative: 59-year-old female presenting to the emergency department with palpitations and anxiety. She has been having episodes on and off for the last 4 days. All of a sudden she will feel like her heart is racing, her arms are tingling, her lungs are burning. She is breathing fast. No particular chest pain. No pain with inspiration. She has a history of COPD and asthma, is a non-smoker. She is using inhalers as needed. She denies any abdominal pain, nausea, vomiting, cough, fevers, other recent illness. She is taking Wellbutrin for anxiety. Says that this feels similar to her anxiety attacks. She does not have an abortive medication at home. No drug or alcohol use. - Related Data Home Medications Medication Instructions Recorded Confirmed Aspirin [Low Dose Aspirin EC] 81 mg PO DAILY 09/22/19 01/05/20 Omeprazol
--- NOTE | 2020-01-05 15:01 | ECG_ITS ---
APPROVED REPORT Exam: Resting ECG HR:75 bpm ECG Measurements Heart Rate 75 AXES IA 144 P 44 QRSd 86 QRS -31 QT 400 T 59 QTc 446 <Conclusion> Normal sinus rhythm Left axis deviation Abnormal ECG Electronically signed by : Benny Goldman, 01/07/2020 06:43:55
[2020-01-05 15:07] VITALS: BP 135/89; PULSE 69; RESP 17; TEMP 36.8; O2SAT 99
[2020-01-06 20:03] LABS: POC Glucose,Bedside 91 (70-110)
== END 2020-01-05 15:09 | disposition home or self-care (01) ==
PROVIDERS: Emergency Provider Emergency Medicine; PCP Physician Assistant
DX: F41.8 Other specified anxiety disorders (principal); K21.9 Gastro-esophageal reflux disease without esophagitis; I25.10 Atherosclerotic heart disease of native coronary artery without angina pectoris; E78.5 Hyperlipidemia, unspecified; I10 Essential (primary) hypertension; G43.709 Chronic migraine without aura, not intractable, without status migrainosus; E03.9 Hypothyroidism, unspecified; Z88.8 Allergy status to other drugs, medicaments and biological substances; Z90.49 Acquired absence of other specified parts of digestive tract; Z90.79 Acquired absence of other genital organ(s); Z79.899 Other long term (current) drug therapy
CPT/HCPCS: 71045; 82962; 93005; 99282

== ENCOUNTER → 2020-01-12 16:22 | Outpatient (CLI) | payer MEDICARE, MEDICAID, SELFPAY ==
[2020-01-12 17:29] LABS: Basophils % 0.4 % (0.1-2.0); Eosinophils # 0.1 K/mm3 (0.0-0.4); Hemoglobin 13.4 g/dL (12.2-16.2); Lymphocytes # 1.6 K/mm3 (0.7-4.5); Lymphocytes % 31.8 % (10-50); Mean Corpuscular HGB Conc 32.7 g/dL (31.8-35.4); Mean Corpuscular Hemoglobin 31.1 pg (27.0-31.2); Mean Platelet Volume 9.8 fl (7.4-10.4); Monocytes # 0.5 K/mm3 (0.1-1.0); Monocytes % 9.7 % (1.7-9.3); Neutrophils # 2.9 K/mm3 (1.8-7.8); Neutrophils % 56.1 % (37.0-80.0); Platelet Count 314 K/mm3 (142-424); Red Blood Count 4.32 M/mm3 (4.20-5.40); Red Cell Distribution Width 13.7 % (11.5-17.5); White Blood Count 5.2 K/mm3 (4.8-10.8)
[2020-01-12 18:10] LABS: Alanine Aminotransferase 19 U/L (12-78); Albumin Level 3.9 g/dl (3.5-5.0); Albumin/Globulin Ratio 1.3 (1.1-1.8); Alkaline Phosphatase 89 U/L (38-126); Anion Gap 12.1 mEq/L (5-15); Aspartate Amino Transferase 29 U/L (14-36); Bilirubin,Total 0.3 mg/dl (0.2-1.3); Blood Urea Nitrogen 14 mg/dl (7-17); Calcium 9.8 mg/dl (8.4-10.2); Carbon Dioxide 28 mmol/L (22.0-30.0); Chloride 105 mmol/L (98-107); Chol/HDL Ratio 1.9 (1-3.5); Cholesterol 189 mg/dl (140-200); Estimated Glomerular Filt Rate 73 ml/min (>60); GFR (African American) 89 ML/MIN (>60); Globulin 3.1 g/dL (1.3-3.2); Glucose 76 mg/dl (74-100); HDL Cholesterol 97 mg/dl (40-60); Potassium 4.1 mmoL/L (3.5-5.1); Sodium 141 mmol/L (136-145); Triglycerides 164 mg/dl (30-150); VLDL Cholesterol 33 mg/dL (0-40)
[2020-01-12 18:20] LABS: Direct LDL Cholesterol 72.37 mg/dL (100-129)
[2020-01-12 18:24] LABS: 25-OH Vitamin D, Total 25.7 ng/mL (30-100)
== END ==
PROVIDERS: Visit Provider Physician Assistant
DX: F41.9 Anxiety disorder, unspecified (principal); I10 Essential (primary) hypertension; R53.83 Other fatigue; K76.9 Liver disease, unspecified; I20.9 Angina pectoris, unspecified; W54.0XXA Bitten by dog, initial encounter; E55.9 Vitamin D deficiency, unspecified
CPT/HCPCS: 80053; 80061; 82306; 85025

== ENCOUNTER → 2020-01-13 08:47 | Outpatient (CLI) | payer MEDICARE, MEDICAID, SELFPAY ==
--- NOTE | 2020-01-13 08:48 | CT_ITS ---
PROCEDURE: CT ABDOMEN WO/W CON CLINICAL HISTORY: f/u on liver lesion Follow-up liver lesions COMPARISON: CT ABDWW CT abdomen wo/w con from 12/19/[address] angio chest from 02/03/2018 TECHNIQUE: Axial images obtained with sagittal and coronal reformats. All CT scans at the facility use one or more dose reduction, viz: automated exposure control, ma/kV adjustment per patient size (including targeted exams where dose is matched to indication, i.e. head), or iterative reconstruction technique. FINDINGS: There are stable pleural and parenchymal opacities in the lower lobes some of which are calcified. There has been a prior cholecystectomy. There are multiple intensely enhancing liver lesions with the largest lesion in the right hepatic lobe posteriorly at 1.5 cm. There is some subsegmental enhancement in the right hepatic lobe inferiorly and medially similar to the previous exam. Most of these lesions are not significantly changed. The largest lesion is at 1.5 cm and has slightly increased in size previously measuring 1.2 cm on 12/19/2017. No new nodules are identified. These lesions have similar enhancement pattern as the aorta and are consistent with hemangiomas.. An area of isodense is present in the right hepatic lobe medially at 1 cm not significantly changed. There is a small hiatal hernia. The spleen, adrenal glands, pancreas, and kidneys have an unremarkable appearance. No renal or ureteral calculi. There is a mild amount of retained colonic feces. No acute bony findings. IMPRESSION: 1. Multiple intensely enhancing small hepatic lesions as described above consistent with hemangiomas. The largest lesion is in the right hepatic lobe inferiorly at 1.5 cm previously 1.2 cm. The remaining lesions are unchanged. Dictated b Diego Kowalski MD 01/14/2020 11:38 Diego Kowalski MD in [facility] 01/14/2020 11:38
== END ==
PROVIDERS: PCP Physician Assistant; Visit Provider Physician Assistant
DX: K76.9 Liver disease, unspecified (principal)
CPT/HCPCS: 74170; Q9967

== ENCOUNTER → 2020-01-27 07:48 | Outpatient (CLI) | payer MEDICARE, MEDICAID, SELFPAY ==
[2020-01-27 09:29] LABS: Thyroid Stimulating Hormone 2.19 uIU/mL (0.465-4.68)
[2020-01-27 09:59] LABS: Free T4 (Free Thyroxine) 0.96 ng/dl (0.78-2.19)
== END ==
PROVIDERS: Visit Provider Otolaryngology
DX: E03.9 Hypothyroidism, unspecified (principal); R49.0 Dysphonia
CPT/HCPCS: 36415; 84439; 84443

== ENCOUNTER → 2020-01-27 07:58 | Outpatient (CLI) | payer MEDICARE, MEDICAID, SELFPAY ==
--- NOTE | 2020-01-27 07:58 | MM_ITS ---
PROCEDURE: MM DIG SCREENING MAMM BI W/CAD Digital Breast Tomosynthesis Included CLINICAL INDICATION: screening for breast ca There is a history of breast cancer in the patient's maternal grandmother. COMPARISON: MG DMSB DIG MAMM-SCREEN [place] from 11/23/2015 MG DMSB DIG MAMM-SCREEN [facility] W/CAD from 03/14/2017 MG MM DIG SCREENING MAMM BI W/CAD from 01/21/2019 TECHNIQUE: Standard CC and MLO images and 3D Tomosynthesis was obtained. R2 CAD reviewed. FINDINGS: Mild to moderate scattered fibroglandular densities are seen throughout both breasts. Again noted is a metallic density inner quadrant left breast likely a loop recorder. There is a well-defined nodular density axillary tail right breast likely a low-lying node. There is no suspicious lesion in either breast and no suspicious microcalcifications. IMPRESSION: Fibrofatty parenchyma with no suspicious lesions seen BI-RAD Category: FOLLOW-UP: 1YR 1 Year Follow-up (A letter has been sent to the patient regarding results of the study.) Dictated by: Dr. Pee Weems MD 01/27/2020 12:44 Dr. Pee Weems MD in [place] 01/27/2020 12:44
== END ==
PROVIDERS: PCP Physician Assistant; Visit Provider Physician Assistant
DX: Z12.31 Encounter for screening mammogram for malignant neoplasm of breast (principal); E03.9 Hypothyroidism, unspecified; R49.0 Dysphonia
CPT/HCPCS: 36415; 77063; 77067; 84439; 84443

== ENCOUNTER 2020-01-30 07:58 | Day surgery (SDC) | payer MEDICARE, MEDICAID, SELFPAY ==
[2020-01-30] VITALS (10 sets, daily range): BP systolic 99–140; BP diastolic 49–88; PULSE 63–72; RESP 18–20; TEMP 36.4–36.9; O2SAT 94–100; BMI 24.2
--- NOTE | 2020-01-30 10:08 | P.PCN_ITS ---
- Procedure Date: 01/30/20 Time: 10:08 Anesthesiologist:: Eber Liz MD Complications:: None Pre-procedure Diagnosis:: Degenerative disc disease of the cervical spine and lumbar spine with lumbar and cervical radiculopathy symptoms Post-procedure Diagnosis:: Same Indications for Procedure:: This patient is a pleasant 59-year-old white female who we have been treating for neck pain low back pain with lumbar and cervical radiculopathy symptoms. She has failed all other conservative therapy including oral medications, injections and she is not a surgical candidate. She is also failed previous physical therapy. She was currently on oxycodone 10 mg 4 times a day and Lyrica. She is weaned off of her oral medications. She has been off her narcotics for approximately 1 week. She has had a successful psychological evaluation. She presents for intrathecal pump trial today to help with low back pain and neck pain. Low back pain is worse than her neck pain. Procedure Details:: Pain pump trial Informed consent was obtained and the risk and benefits of the procedure was explained to the patient. The patient was taken to the procedure room and martin deepika prone on the procedure table. Patient was prepped and draped in sterile fashion. C-arm fluoroscopy was used to view the lumbar spine. The skin and subcutaneous tissues were anesthetized using lidocaine. I placed a 18-gauge spinal needle into the L4-5 interspace and advanced until clear CSF was obtained. After this intrathecal catheter was inserted and advanced very easily to the L1 vertebral body. The needle was withdrawn. We were able to freely withdraw clear CSF through the catheter. We then injected intrathecal fentanyl single shot bolus of 25 mcg followed by saline and followed by the previous CSF that was withdrawn. The needle and catheter were then removed and a Band-Aid was placed. Patient tolerated the procedure well with no complications. We reevaluated the patient after 30 minutes to 1 hour. She was also reassessed by physical therapy. This patient had 80 to 90% relief in her pain symptoms. She wants to proceed with permanent placement of her intrathecal pain pump. We will enroll her in the transit study. If she is randomized to permanent placement of her pain pump we will plan on intrathecal morphine 5 mg/mL to start at 0.5 mg/day. She had no side effects. Catheter tip was at the T10 vertebral body. Plan and Disposition:: We will plan on her seeing Dr. Devon cardona for evaluation for permanent placement of intrathecal pain pump.
--- NOTE | 2020-01-30 12:26 | PC.NURSE ---
0950-pt returned to room via w/c, accompanied by nursing staff. VSS no c/o pain. pt offered po fluids, declined. 1005-pt resting in chair. vss. no c/o pain 1020-pt sleeping in chair. vss 1035-pt resting in chair. no c/o pain. without needs or concerns at this time 1050-pt resting in chair. vss, no c/o pain. no needs or concerns at this time 1120-pt resting in chair. vss, no c/o pain. no needs or concerns at this time 1125-PT at bedside 1127-Dr. Liz at bedside.
== END 2020-01-30 11:45 | disposition home or self-care (01) ==
LOC: SC.PAINP 07:59
PROVIDERS: PCP Physician Assistant; Visit Provider Anesthesiology
DX: M50.10 Cervical disc disorder with radiculopathy, unspecified cervical region (principal); M51.16 Intervertebral disc disorders with radiculopathy, lumbar region; I10 Essential (primary) hypertension; B19.20 Unspecified viral hepatitis C without hepatic coma; E78.5 Hyperlipidemia, unspecified; G43.909 Migraine, unspecified, not intractable, without status migrainosus; G47.33 Obstructive sleep apnea (adult) (pediatric); I47.1 Supraventricular tachycardia; I25.10 Atherosclerotic heart disease of native coronary artery without angina pectoris; I49.9 Cardiac arrhythmia, unspecified; J44.9 Chronic obstructive pulmonary disease, unspecified; F41.9 Anxiety disorder, unspecified
CPT/HCPCS: 62323; 96365

== ENCOUNTER → 2020-02-17 09:05 | Outpatient (CLI) | payer MEDICARE, MEDICAID, SELFPAY ==
[2020-02-17 09:27] LABS: Basophils % 0.3 % (0.1-2.0); Eosinophils % 0.4 % (0.1-12.0); Hematocrit 44.7 % (37.0-47.0); Hemoglobin 15.3 g/dL (12.2-16.2); Lymphocytes # 1.3 K/mm3 (0.7-4.5); Lymphocytes % 24.7 % (10-50); Mean Corpuscular HGB Conc 34.3 g/dL (31.8-35.4); Mean Corpuscular Hemoglobin 30.8 pg (27.0-31.2); Mean Platelet Volume 8.8 fl (7.4-10.4); Monocytes # 0.4 K/mm3 (0.1-1.0); Monocytes % 8.7 % (1.7-9.3); Neutrophils # 3.3 K/mm3 (1.8-7.8); Neutrophils % 65.8 % (37.0-80.0); Platelet Count 274 K/mm3 (142-424); Red Blood Count 4.96 M/mm3 (4.20-5.40); Red Cell Distribution Width 13.6 % (11.5-17.5); White Blood Count 5.1 K/mm3 (4.8-10.8)
[2020-02-17 10:14] LABS: Coronavirus 19 IgG Antibody Negative (Negative); Coronavirus 19 IgM Antibody Negative (Negative)
[2020-02-17 10:17] LABS: Chloride 100 mmol/L (98-107); Potassium 4.3 mmoL/L (3.5-5.1); Sodium 139 mmol/L (136-145)
[2020-02-17 10:20] LABS: Anion Gap 13.3 mEq/L (5-15); Blood Urea Nitrogen 17 mg/dl (7-17); Calcium 9.9 mg/dl (8.4-10.2); Carbon Dioxide 30 mmol/L (22.0-30.0); Estimated Glomerular Filt Rate 73 ml/min (>60); GFR (African American) 89 ML/MIN (>60); Glucose 97 mg/dl (74-100)
== END ==
PROVIDERS: Visit Provider Anesthesiology
DX: Z01.818 Encounter for other preprocedural examination (principal); Z01.84 Encounter for antibody response examination
CPT/HCPCS: 36415; 80048; 85025; 86328

== ENCOUNTER 2020-02-18 11:44 | Day surgery (SDC) | payer MEDICARE, MEDICAID, SELFPAY ==
[2020-02-16 14:21] VITALS: BMI 22.6
[2020-02-18 12:19] VITALS: BP 128/83; PULSE 87; RESP 18; TEMP 36.4; O2SAT 94
[2020-02-18 12:29] LABS: Barbiturates Screen,Urine Negative ng/ml (<200); Benzodiazepines Screen,Urine Negative ng/ml (<200)
[2020-02-18 12:30] LABS: Amphetamine/Metha Screen,Urine Negative ng/ml (<1000)
[2020-02-18 12:31] LABS: Cannabinoid Screen,Urine Negative ng/ml (<50); Methadone Screen,Urine Negative ng/ml (<300)
[2020-02-18 12:32] LABS: Cocaine Screen,Urine Negative ng/ml (<300); Opiate Screen,Urine Negative ng/ml (<300)
[2020-02-18 12:33] LABS: Phencyclidine Screen,Urine Negative ng/ml (<25)
--- NOTE | 2020-02-18 15:26 | HMH.PMCON ---
Assessment and Plan - Assessment and plan all Dx Assessment and Plan for all problems:: Impression-degenerative disc disease of the lumbar spine with radiculopathy Plan-placement of intrathecal pain pump system today HPI - Data of Consult Patient: new to practice Consult date: 02/18/20 Requesting Physician: Eber Liz MD Primary Care Provider: MARK Paniagua - Consult Narrative Reason for consult: Degenerative disc disease of the lumbar spine with radiculopathy History of present illness: Ms. Thrasher is a 59 year old female with chronic back pain. She has had multiple attempts at relief over the years without success. She had a pain pump trial with significant relief and desires placement of the system to help her with her pain CC: Eber Liz MD [facility] History I have reviewed the patient's past medical history: Yes Medical History: Reports:: Anxiety, Arrhythmia, Asthma, Cancer, Chronic Obstructive Pulmonary Disease (COPD), Coronary Artery Disease, Depression, Gastroesophageal Reflux Disease(GERD), Hyperlipidemia, Hypertension, Migraine, Palpitations Denies:: Diabetes Mellitus Type 1, Diabetes Mellitus Type 2, Internal Pacemaker, MRSA, Seizures *Have you ever received a pneumonia vaccine?: No *Have you received a flu vaccine this season?: Yes Other Medical History: Reports: Arthritis, Fibromyalgia, Hormone Therapy, Hypothyroidism, Liver Disease, Thyroid Disease, Other. Denies: Blood Transfusion Reaction Comment:: Illnesses-hypertension, hyperlipidemia, coronary artery disease, hypothyroidism, anxiety and depression, GERD, history of hepatitis C, chronic back pain, COPD Other Surgeries: Yes: No Previous Surgery, Appendectomy, BSO, Cardiac Catheterization, Cholecystectomy, Colonoscopy, , EGD, Hysterectomy-Total, Thyroidectomy, Other. No: Pacemaker Amputation: No Fractures: Yes (2018- FX. LEFT ANKLE) - *Social History Last grade of school completed: GED Smoking Status: Never smoker Alcohol Intake: current Alcohol Intake Frequency:: holidays/special occasions only Substance Use Type: denies use *Occupational Status:: disabled Housing: apartment Household Members: none *Travel in the last 8 weeks: None - Psychiatric History Pschychiatric History:: Reports:: Anxiety, Depression Family Hx:: Cancer, Coronary Artery Disease, Diabetes, Heart Attack, Hyperlipidemia, Hypertension, Kidney Disease, Thyroid Disorder Review of Systems - Review of Systems Review of systems:: pertinent systems reviewed and negative unless documented below Meds Home Medications Medication Instructions Recorded Confirmed Type Aspirin [Low Dose Aspirin EC] 81 mg PO DAILY 09/22/19 02/16/20 History Albuterol Sulfate [Albuterol HFA 1 - 2 puffs IH Q4-6H PRN 09/26/19 02/16/20 History Inhaler] Linaclotide [Linzess] 72 mcg PO DAILY 11/03/19 02/16/20 History estradioL [Estradiol] See Rx Instructions .ROUTE .COMPLEX 11/03/19 02/16/20 History fluticasone furoate 100 1 inh INHALATION DAILY 01/05/20 02/16/20 History mcg-vilanterol 25 mcg/dose inhalation powder montelukast 10 mg tablet 10 mg PO QDAY #90 tab 01/12/20 02/16/20 Rx omeprazole 40 mg capsule,delayed 40 mg PO DAILY #90 cap 01/12/20 02/16/20 Rx release quetiapine 100 mg tablet 100 mg PO QHS #90 tab 01/12/20 02/16/20 Rx Pregabalin [Lyrica 150mg Cap] 150 mg PO BID 01/30/20 02/18/20 History Rosuvastatin Calcium 10 mg PO DAILY 01/30/20 02/16/20 History levothyroxine 50 mcg capsule 50 mcg PO DAILY #90 cap 02/02/20 02/16/20 Rx metoprolol succinate 50 mg 50 mg PO .At bedtime #90 tab 02/10/20 02/18/20 Rx tablet,extended release 24 hr levocetirizine 5 mg tablet 5 mg PO DAILY 02/11/20 02/16/20 History lorazepam 0.5 mg tablet 0.5 mg PO DAILY PRN #30 tab 02/12/20 02/16/20 Rx Duloxetine HCl [Cymbalta] 60 mg PO DAILY 02/16/20 02/16/20 History Sulfamethoxazole/Trimethoprim 1 each PO BID #14 tab 02/18/20 Rx [Bactrim DS tablet] Allergies Allergy/AdvReac Type
--- NOTE | 2020-02-18 15:30 | P.PN_ITS ---
[facility] Anesthesia Checklist - Patient Identification Patient Identification: Arm Band, Verbal (Name & ) - Structural Data Admitted From: Home Planned Operative Procedure/s: pain pump placement Consent for Planned Operative Procedure(s) Verified: Yes Verified Documents: History and Physical - NPO Status Verified Time NPO: 00:00 - Additional verifications Patient : No Anesthesia Reactions: No Hx Blood Transfusions: No Blood Transfusion Reaction: No Cephalosporin Allergy: No Previous Colonoscopy: Yes - Cardiovascular Assessment Heart Sounds: S1 & S2 Pulse Strength: Baseline Pulse Rhythm: Regular Peripheral Edema: No - Airway Assessment C-Spine Mobility Assessed: Yes TMJ Mobility Assessed: Yes Dentition: Good Dentition - Neurological Assessment Level of Consciousness: Awake, Alert, Appropriate Hx Seizures: No Numbness or tingling in extremities: No - Anesthesia Plan Anesthesia Risk discussed: Yes Anesthesia Plan: Verified ASA Class: III Anesthesia Type: MAC [facility] History I have reviewed the patient's past medical history: Yes Medical History: Reports:: Anxiety, Arrhythmia, Asthma, Cancer, Chronic Obstructive Pulmonary Disease (COPD), Coronary Artery Disease, Depression, Gastroesophageal Reflux Disease(GERD), Hyperlipidemia, Hypertension, Migraine, Palpitations Denies:: Diabetes Mellitus Type 1, Diabetes Mellitus Type 2, Internal Pacemaker, MRSA, Seizures *Have you ever received a pneumonia vaccine?: No *Have you received a flu vaccine this season?: Yes Other Medical History: Reports: Arthritis, Fibromyalgia, Hormone Therapy, Hypothyroidism, Liver Disease, Thyroid Disease, Other. Denies: Blood Transfusion Reaction Anesthesia experience/problems:: none Other Surgeries: Yes: No Previous Surgery, Appendectomy, BSO, Cardiac Catheterization, Cholecystectomy, Colonoscopy, , EGD, Hysterectomy- Total, Thyroidectomy, Other. No: Pacemaker Amputation: No Fractures: Yes (2018- FX. LEFT ANKLE) - *Social History Last grade of school completed: GED Smoking Status: Never smoker Alcohol Intake: current Alcohol Intake Frequency:: holidays/special occasions only Substance Use Type: denies use *Occupational Status:: disabled Housing: apartment Household Members: none *Travel in the last 8 weeks: None - Psychiatric History Pschychiatric History:: Reports:: Anxiety, Depression Family Hx:: Cancer, Coronary Artery Disease, Diabetes, Heart Attack, Hyperlipidemia, Hypertension, Kidney Disease, Thyroid Disorder
--- NOTE | 2020-02-18 15:46 | HMH.OPNOTE ---
Date of procedure: 02/18/20 Pre-op Diagnosis:: Degenerative disc disease of the cervical spine lumbar spine with cervical and lumbar radiculopathy symptoms Post-op Diagnosis:: Same Procedure performed:: Intrathecal catheter placement with tunneling for permanent intrathecal pain pump Surgeon:: Eber Liz MD [employer] MACHINE FEEDER:: Darryl Alaniz Anesthesia: MAC Estimated blood loss (mL): 5 Clinical Note:: Patient is a pleasant 59-year-old white female who we have been treating for neck pain and low back pain with cervical lumbar radiculopathy symptoms. She has failed all previous conservative therapy including oral medications, injections, physical therapy and she is not a surgical candidate. She is weaned herself off of all oral narcotics. She has had a successful psychological evaluation. She had successful intrathecal pump trial with 80 to 90% relief in her pain symptoms. She presents for permanent placement of intrathecal pain pump today. Operative findings:: None Operative note:: Informed consent was obtained and the risk and benefits of the procedure was explained to the patient. Patient was taken to the procedure room. She was prepped and draped in sterile fashion. C-arm fluoroscopy was used to view the L4-5 and L5-S1 interspace. I anesthetized the skin and subcutaneous tissues and made an incision and dissected down to the lumbar paraspinous fascia. A 14-gauge spinal needle was inserted and advanced into the L4-5 interspace until clear CSF was obtained. After this intrathecal catheter was inserted and advanced very easily to the T10 vertebral body. The stylette of the catheter and the needle were withdrawn. The catheter is secured to the fascia with 2-0 Prolene and [address] Moody created the pump pocket while I prepared the pump with 20 mls of intrathecal morphine 5 mg/mL. I tunneled the catheter from the back to the pump pocket and attached the catheter to the pump. Both incisions were irrigated with bacitracin solution. The pump was secured to the fascia with 2-0 Prolene. We were able to freely withdraw clear CSF through the side-port. Both incisions were closed with 2-0 Vicryl followed by 4-0 nylon. A wound VAC was placed over both incisions. The patient was placed in an abdominal binder taken recovery in stable condition. Patient was programmed by the [employer] employer relations representative and started at 0.5 mg/day. Patient tolerated the procedure well with no complications. Patient was discharged home neurologically intact with good relief of pain symptoms. Plan and disposition: We will follow-up with this patient in 1 week for wound check. We will reprogram at that time if needed. We will follow-up in 2 weeks for suture removal. If the patient has any problems or questions she is to call us in the pain clinic. Condition: stable Disposition: PACU Complications:: None
--- NOTE | 2020-02-18 16:34 | HMH.OPNOTE ---
Date of procedure: 02/18/20 Pre-op Diagnosis:: Degenerative disc disease of the lumbar spine with radiculopathy Post-op Diagnosis:: Same Procedure performed:: Placement of intrathecal pain pump generator Surgeon:: Jesus Moody MD [employer] SUPERVISOR:: Darryl Alaniz, Benny Vieira, Donald Angeles, Rodney Hare, Other Anesthesia: MAC Estimated blood loss (mL): 5 Operative findings:: Not applicable Operative note:: Patient was placed prone on the operating table and her back and flank regions were prepped and draped in sterile fashion. Local anesthesia utilizing 1% Xylocaine with epinephrine and IV sedation utilizing anesthesia. Paraspinal incision was made by Dr. Tate there which an intrathecal catheter was passed into the intrathecal space to the area desired by Dr. Tate. Catheter fixed the paraspinal fascia with fixation devices and 2-0 Prolene suture. Right flank incision was then made under which made a pocket for placement of the generator. Catheter was passed from the paraspinal incision to the pocket incision utilize a tunneling device. Both incisions irrigated with antibiotic solution. Catheter fixed the generator which was placed in the pocket. CSF was aspirated from the generator noting patency of the system. Pump sutured to the fascia with 2-0 Prolene suture. Subcutaneous tissue was then closed with interrupted stitches of 2-0 Vicryl. Skin was closed with stitches of 4-0 nylon. Wound VAC dressings and a binder applied to the wound. The patient tolerated procedure well and was taken recovery room in stable condition. Upon recovery the patient will be discharged home will follow-up in 1 week for wound VAC removal in 2 weeks for suture removal. Antibiotics x1 week per protocol. The patient tolerated the procedure well Condition: stable Disposition: PACU Complications:: None
[2020-02-18 16:50] VITALS: BP 106/68; PULSE 83; RESP 18; TEMP 36.5; O2SAT 99
[2020-02-18 17:05] VITALS: BP 102/56; PULSE 84; RESP 18; O2SAT 97
[2020-02-18 17:20] VITALS: BP 110/62; PULSE 80; RESP 18; O2SAT 98
[2020-02-18 17:50] VITALS: BP 112/69; PULSE 82; RESP 18; O2SAT 98
== END 2020-02-18 17:50 | disposition home or self-care (01) ==
LOC: OR 11:46
PROVIDERS: PCP Physician Assistant; Visit Provider Anesthesiology
PROC: (CPT 62350; principal; 2020-02-18 12:00)
DX: M50.10 Cervical disc disorder with radiculopathy, unspecified cervical region (principal); M54.16 Radiculopathy, lumbar region; J44.9 Chronic obstructive pulmonary disease, unspecified; I25.10 Atherosclerotic heart disease of native coronary artery without angina pectoris; I10 Essential (primary) hypertension; E78.5 Hyperlipidemia, unspecified; F41.9 Anxiety disorder, unspecified; G43.909 Migraine, unspecified, not intractable, without status migrainosus; F32.9 Major depressive disorder, single episode, unspecified; K21.9 Gastro-esophageal reflux disease without esophagitis; R00.2 Palpitations; Z85.9 Personal history of malignant neoplasm, unspecified
CPT/HCPCS: 62350; 62362; 80305; 96374; C1755; C1772; J3370

== ENCOUNTER → 2020-02-26 14:23 | Outpatient (POV) | payer MEDICARE, MEDICAID, SELFPAY ==
[2020-02-26 14:39] VITALS: BP 122/71; PULSE 62; RESP 18; O2SAT 98; BMI 23.3
--- NOTE | 2020-02-26 14:51 | P.PCN_ITS ---
- Procedure Date: 02/26/20 Time: 14:51 Anesthesiologist:: Bridget Zacarias APRN Complications:: None Pre-procedure Diagnosis:: Degenerative disc disease lumbar spine with lumbar radiculopathy symptoms, degenerative disc disease cervical spine with cervical radiculopathy symptoms Post-procedure Diagnosis:: Same Indications for Procedure:: Patient is a 59-year-old white female who presents today for follow-up after her intrathecal pain pump implant. Patient is being treated for chronic neck and low back pain along with lumbar and cervical radiculopathy symptoms. She currently has morphine at 0.5 mg/day intrathecal therapy. Patient says that her pain is a 4 out of 10 today. She says that she is feeling better, however, is having some incisional pain. The patient's wound VAC will be removed today. Patient says she does feel somewhat more functional and is able to move more since having the pump placed. She says that she is still sore from the surgery, however, she is feeling better. Physical exam General: Alert and oriented x3, no acute distress, pleasant and cooperative, [on room air] Lungs: Respirations even and unlabored, symmetrical chest expansion Eyes: PERRL Musculoskeletal: Flexion and extension of lumbar spine somewhat guarded secondary to pain, deep tendon reflexes normal, strength in upper and lower extremities [5/5], [abnormal gait noted] Neurological: Speech clear, soft sugar operator head equal, no gross sensory deficit Integumentary: Skin abrasion noted to wound VAC area, with blistering noted, serosanguineous drainage noted to area Procedure Details:: Informed consent was obtained and the risk and benefits of the procedure were explained to the patient. Patient was taken to the procedure room where noninvasive monitoring was placed including noninvasive blood pressure cuff and pulse oximeter. Patient's pump was interrogated and was reprogrammed and continued at morphine at 0.5 mg/day. PTC device was set up at 0.05 mg 4 times daily. The patient tolerated the procedure well with no complications. Plan and Disposition:: Patient is doing well overall since having the intrathecal pain pump placed. The patient is no longer taking oral medications. Prior to the implant, the patient was taking oxycodone 10 mg 4 times daily. Patient did wean on her oral medication and is no longer taking any of the medication. The patient's Daniele #[id number] has been reviewed and is appropriate. Morphine equivalent is 0. Drug screens have been appropriate. We will plan to see her back in the clinic in 2 weeks for suture removal. Her sutures are intact at this time. Her incision is well approximated with no redness no drainage, no edema is noted to the site. Patient has been instructed to contact the clinic if she has concerns for next point. The patient and I specifically discussed risk factors for COVID19. These risks include, but are not limited to age greater than 60, heart or lung disease, diabetes, immunosuppression, and travel. We also discussed NSAIDs may worsen COVID19 infection or symptoms. Patient should not use NSAIDs to treat COVID19 signs or symptoms. Patient was also informed that any type of corticosteroid of any form (oral or injection) will decrease the patient's immune system response and may increase the likelihood of COVID19 infection and symptoms[address] Dr. Liz has reviewed this note and agrees with this plan of care. This note was dictated using voice recognition software and make contain errors or omissions.
== END ==
PROVIDERS: PCP Physician Assistant; Visit Provider Clinical Nurse Specialist Family Health
DX: M51.16 Intervertebral disc disorders with radiculopathy, lumbar region (principal); M50.10 Cervical disc disorder with radiculopathy, unspecified cervical region; I10 Essential (primary) hypertension; E78.5 Hyperlipidemia, unspecified; I25.10 Atherosclerotic heart disease of native coronary artery without angina pectoris; Z79.899 Other long term (current) drug therapy; Z79.82 Long term (current) use of aspirin; Z79.890 Hormone replacement therapy
CPT/HCPCS: 62368

== ENCOUNTER → 2020-03-11 13:45 | Outpatient (POV) | payer MEDICARE, MEDICAID, SELFPAY ==
--- NOTE | 2020-03-11 14:14 | HMH.PMPROC ---
- Procedure Date: 03/11/20 Time: 14:14 Anesthesiologist:: Bridget Zacarias APRN Complications:: None Pre-procedure Diagnosis:: Degenerative disc disease lumbar and cervical spine with lumbar and cervical radiculopathy symptoms Post-procedure Diagnosis:: Same Indications for Procedure:: Patient is a pleasant 60-year-old white female who presents today for suture removal. She has been treated for chronic low back pain and neck pain with cervical and lumbar radiculopathy symptoms. Patient rates her pain a 3 out of 10 today. She would like a slight increase in her dose. She is currently on morphine at 0.5 mg/day. She denies any side effects to the medications. She will have her sutures removed today. She says she feels like the pump is working well for her pain. Patient's Daniele #[id number] has been reviewed and is appropriate. Her screens have been appropriate. She is also managed with pregabalin 150 mg 1 tablet p.o. twice daily. Physical exam General: Alert and oriented x3, no acute distress, pleasant and cooperative, [on room air] Lungs: Respirations even and unlabored, symmetrical chest expansion Eyes: PERRL Musculoskeletal: Flexion and extension of lumbar spine somewhat guarded secondary to pain, deep tendon reflexes normal, strength in upper and lower extremities [5/5], [abnormal gait noted] Neurological: Speech clear, hot stick man equal, no gross sensory deficit Integumentary: Incision is well approximated, no redness, no drainage, no edema noted to site, sutures removed Procedure Details:: Informed consent was obtained and the risk and benefits of the procedure were explained to the patient. Patient was taken to the procedure room where noninvasive monitoring was placed including noninvasive blood pressure cuff and pulse oximeter. Patient's pump was interrogated and was reprogrammed to morphine at 0.6 mg/day. The patient tolerated the procedure well with no complications. Plan and Disposition:: We will see the patient back in the clinic in 2 weeks to reevaluate her symptoms. She has been instructed to contact the clinic if she has any concerns before next appointment. The patient and I specifically discussed risk factors for COVID19. These risks include, but are not limited to age greater than 60, heart or lung disease, diabetes, immunosuppression, and travel. We also discussed NSAIDs may worsen COVID19 infection or symptoms. Patient should not use NSAIDs to treat COVID19 signs or symptoms. Patient was also informed that any type of corticosteroid of any form (oral or injection) will decrease the patient's immune system response and may increase the likelihood of COVID19 infection [address] symptoms[address] Liz has reviewed this note and agrees with this plan of care. This note was dictated using voice recognition software and make contain errors or omissions.
[2020-03-11 14:28] VITALS: BP 135/74; PULSE 85; RESP 18; O2SAT 98; BMI 23.9
== END ==
PROVIDERS: PCP Physician Assistant; Visit Provider Clinical Nurse Specialist Family Health
DX: M50.10 Cervical disc disorder with radiculopathy, unspecified cervical region (principal); M51.36 Other intervertebral disc degeneration, lumbar region
CPT/HCPCS: 62368

== ENCOUNTER → 2020-03-29 14:06 | Outpatient (POV) | payer MEDICARE, MEDICAID, SELFPAY ==
[2020-03-29 14:47] VITALS: BP 126/90; PULSE 72; RESP 18; TEMP 36.5; O2SAT 98; BMI 23.9
--- NOTE | 2020-03-29 14:57 | HMH.PMPROC ---
- Procedure Date: 03/29/20 Time: 14:57 Anesthesiologist:: Erica Benjamin APRN Complications:: None Pre-procedure Diagnosis:: Degenerative disc disease lumbar spine lumbar radiculopathy Post-procedure Diagnosis:: Same Indications for Procedure:: Patient is a very pleasant 60-year-old white female who presents today for follow-up. Patient had a intrathecal pain pump placed she is currently on 0.6 mg of morphine a day. She would like a slight increase. She rates her pain today 5 out of 10. Overall doing well with no side effects to the pump however she is having these blackout spells she has had these for several years. Patient and I discussed going to see Dr. Fox in regard to this she agrees. Patient's incision is healed well there is no sign symptoms of infection. We will increase her slightly today Procedure Details:: Informed consent was obtained and the risk and benefits of the procedure were explained to the patient. The patient was taken to the procedure room where noninvasive monitoring was placed including noninvasive blood pressure cuff and pulse oximeter. Patient's pump was interrogated and reprogrammed. The infusion rate was increased to 0.72 mg/day morphine. The patient tolerated the procedure well. Plan and Disposition:: We will send her to Dr. Fox for a consultation. She has been instructed to call the office if she has any issues prior to her next appointment. Dr. Liz has reviewed this note and agrees with this plan of care. This note was dictated using voice recognition software and may contain errors or omissions
== END ==
PROVIDERS: PCP Physician Assistant; Visit Provider Clinical Nurse Specialist Family Health
DX: M51.16 Intervertebral disc disorders with radiculopathy, lumbar region (principal)
CPT/HCPCS: 62368

== ENCOUNTER → 2020-04-23 09:22 | Outpatient (CLI) | payer MEDICARE, MEDICAID, SELFPAY ==
--- NOTE | 2020-04-23 09:23 | XR_ITS ---
PROCEDURE: XR DEXA AXIAL SKELETON CLINICAL HISTORY: post menopausal screen for osteoporosis COMPARISON: CR DEXAAX XR DEXA axial skeleton from 11/13/2017 FINDINGS: The right hip BMD is 0.677 with a T-score of -1.6. The left hip BMD is 0.760 with a T-score of -0.8. The lumbar spine BMD is 1.00 with a T-score of -0.4. IMPRESSION: This patient is considered osteopenic according to the World Health Organization criteria. Bone density is between 10 and 25 percent below young normal. Fracture risk is moderate. Treatment is advised. Based on these results a follow-up exam is recommended in 2 year. Dictated by: Diego Kowalski MD 04/24/2020 09:25 Diego Kowalski MD in [place] 04/24/2020 09:25
== END ==
PROVIDERS: PCP Physician Assistant; Visit Provider Physician Assistant
DX: Z78.0 Asymptomatic menopausal state (principal)
CPT/HCPCS: 77080

== ENCOUNTER 2020-05-31 13:17 | Day surgery (SDC) | payer MEDICARE, MEDICAID, SELFPAY ==
[2020-05-31 13:40] VITALS: BP 109/74; PULSE 86; RESP 18; O2SAT 95; BMI 25.7
[2020-05-31 13:53] VITALS: BP 116/88; PULSE 91; RESP 18; O2SAT 93
[2020-05-31 13:56] VITALS: BP 118/65; PULSE 90; RESP 18; O2SAT 96
--- NOTE | 2020-05-31 14:00 | HMH.PMPROC ---
- Procedure Date: 05/31/20 Time: 14:01 Anesthesiologist:: Erica Benjamin APRN Complications:: None Pre-procedure Diagnosis:: Degenerative disc disease lumbar spine lumbar radiculopathy Post-procedure Diagnosis:: Same Indications for Procedure:: Patient is a pleasant 60-year-old white female who presents today for follow-up and intrathecal pain pump refill and reprogram. Patient is currently on a 0.72 mg a day morphine infusion. She rates her pain a 4 out of 10. She like a slight increase today. She denies any side effects to this medication. Patient's [facility] #[id number] reviewed and appropriate. Drug screens have been appropriate. Procedure Details:: Informed consent was obtained and the risk and benefits of the procedure were explained to the patient. The patient was taken to the procedure room where noninvasive monitoring was placed including noninvasive blood pressure cuff and pulse oximeter. Patient's pump was interrogated. The area over the pump was cleansed with chlorhexidine as a cleansing solution. In sterile fashion the pump was accessed with a 22-gauge needle. Approximately 6 mL's were removed of the pump solution and discarded appropriately. The pump was then refilled with 20 mL's of morphine 5 mg/mL. The needle was withdrawn and a bandage was placed over the puncture site. The infusion rate was reprogrammed to 0.9 mg/day. The patient tolerated the procedure well. Plan and Disposition:: The patient back at her next intrathecal pain pump refill and reprogram she has been instructed to call the office if she has any issues prior to her next appointment. Dr. Liz has reviewed this note and agrees with this plan of care. This note was dictated using voice recognition software and may contain errors or omissions
[2020-05-31 14:16] VITALS: BP 122/85; PULSE 81; RESP 18; O2SAT 95
== END 2020-05-31 14:17 | disposition home or self-care (01) ==
LOC: SC.PAINP 13:18
PROVIDERS: PCP Physician Assistant; Visit Provider Clinical Nurse Specialist Family Health
DX: M51.16 Intervertebral disc disorders with radiculopathy, lumbar region (principal); I10 Essential (primary) hypertension; E78.5 Hyperlipidemia, unspecified; E03.9 Hypothyroidism, unspecified; F41.9 Anxiety disorder, unspecified; F32.9 Major depressive disorder, single episode, unspecified
CPT/HCPCS: 62370

== ENCOUNTER → 2020-06-29 09:23 | Outpatient (CLI) | payer MEDICARE, MEDICAID, SELFPAY ==
--- NOTE | 2020-06-29 09:25 | US_ITS ---
APPROVED REPORT Exam Type: Ankle to Brachial Index Electric Distribution Checker: Diana Bernstein RCS, RVS Indications Claudication: Edema Risk Factors Hyperlipidemia Pressures/Indices Right Indices Left Indices Brachial 127.00 mmHg Brachial 125.00 mmHg Low Thigh 133.00 mmHg 1.05 Low Thigh 139.00 mmHg 1.09 Calf 140.00 mmHg 1.10 Calf 142.00 mmHg 1.12 Ankle(PT) 131.00 mmHg 1.03 Ankle(PT) 141.00 mmHg 1.11 Ankle(DP) 134.00 mmHg 1.06 Ankle(DP) 127.00 mmHg 1.00 Digit 123.00 mmHg 0.97 Digit 101.00 mmHg 0.80 Findings RT CEE=1.06 LT CEE=1.11 RT TPI=0.97 LT TPI=0.80 Conclusion RT CEE=1.06 LT CEE=1.11 RT TPI=0.97 LT TPI=0.80 Normal appearing resting noninvasive lower extremity arterial study. Electronically signed by : Diego Kowalski MD 06/29/2020 16:33:46
== END ==
PROVIDERS: PCP Physician Assistant; Visit Provider Internal Medicine Cardiovascular Disease
DX: I70.213 Atherosclerosis of native arteries of extremities with intermittent claudication, bilateral legs (principal)
CPT/HCPCS: 93923

== ENCOUNTER 2020-07-20 22:45 | Observation (INO) | payer MEDICARE, MEDICAID, SELFPAY ==
[2020-07-20 22:45] VITALS: BP 135/89; PULSE 102; RESP 16; TEMP 36.8; O2SAT 98; BMI 26.5
--- NOTE | 2020-07-20 22:51 | PC.NURSE ---
patient had no splint on lower extremity upon arrival. tried to place pt into a pillow splint and she refused due to pain.
[2020-07-20 23:00] VITALS: BP 135/89; PULSE 102; RESP 17; O2SAT 96
--- NOTE | 2020-07-20 23:00 | ECG_ITS ---
APPROVED REPORT Exam: Resting ECG HR:94 bpm ECG Measurements Heart Rate 94 AXES MI 160 P 31 QRSd 82 QRS -31 QT 370 T 52 QTc 462 Conclusion Normal sinus rhythm Left axis deviation Abnormal ECG Electronically signed by : Benny Goldman, 07/21/2020 07:37:25
[2020-07-20 23:04] VITALS: BMI 26.5
--- NOTE | 2020-07-20 23:04 | XR_ITS ---
PROCEDURE: XR ANKLE RT 2V CLINICAL INDICATION: fall with possible fracture COMPARISON: No exams were available for comparison FINDINGS: There is a spiral oblique fracture of the distal 3rd of the tibia without significant displacement or angulation. There is a comminuted oblique fracture distal fibula just above the lateral malleolus with a small butterfly fragment paralleling the distal fracture fragment the ankle mortise appears grossly normal. IMPRESSION: Fractures of the distal tibia and fibula as noted Dictated by: Dr. Pee Weems MD 07/21/2020 17:34 Dr. Pee Weems MD in [place] 07/21/2020 17:34
--- NOTE | 2020-07-20 23:04 | XR_ITS ---
PROCEDURE: XR PELVIS 1-2V CLINICAL INDICATION: fall COMPARISON: CR PEL1V XR pelvis 1-2V from 02/03/2018 TECHNIQUE: XR Pelvis AP View FINDINGS: No fracture or dislocation is evident. No significant degenerative change. The SI joints and symphysis pubis appear normal. No lytic or blastic change. IMPRESSION: No acute findings. Dictated by: Dr. Pee Weems MD 07/21/2020 17:35 Dr. Pee Weems MD in [place] 07/21/2020 17:35
--- NOTE | 2020-07-20 23:04 | XR_ITS ---
PROCEDURE: XR CHEST PORTABLE CLINICAL HISTORY: fall, possible surgery COMPARISON: CT AGCHEST CT angio chest from 02/03/2018 CR CXR2V XR chest 2V from 02/03/2018 DX XR CHEST 2V from 11/03/2019 CR XR CHEST PORTABLE from 01/05/2020 FINDINGS: The cardiomediastinal silhouette and pulmonary vascularity are within normal limits. A loop recorder device is seen projecting over the left hilum. The lungs are clear without infiltrates, suspicious nodules, or pleural effusions. No acute bony abnormalities. IMPRESSION: No acute findings. Dictated by: Dr. Pee Weems MD 07/21/2020 17:37 Dr. Pee Weems MD in [facility] 07/21/2020 17:37
--- NOTE | 2020-07-20 23:04 | XR_ITS ---
PROCEDURE: XR TIBIA FIBULA RT 2V CLINICAL INDICATION: fall with possible break COMPARISON: No exams were available for comparison FINDINGS: There is spiral fracture of the distal tibia and comminuted fracture of the distal fibula. Distal tibiofibular articulation remains well approximated. Disruption of the ankle mortise cannot be excluded. Distal tibial fragment posteriorly displaced by greater than 7 millimeters. IMPRESSION: Displaced tibial and fibular fractures and possible disruption of the mortise. Dictated by: Taylor Sinha MD 07/21/2020 18:26 Taylor Sinha MD in [facility] 07/21/2020 18:26
--- NOTE | 2020-07-20 23:11 | CT_ITS ---
PROCEDURE: CT CERVICAL SPINE WO CON CLINICAL INDICATION: fall COMPARISON: CT SPCERVWO CT cervical spine wo con from 02/03/2018 TECHNIQUE: Axial images obtained with sagittal and coronal reformats. All CT scans at the facility use one or more dose reduction, viz: automated exposure control, ma/kV adjustment per patient size (including targeted exams where dose is matched to indication, i.e. head), or iterative reconstruction technique. Axial spiral CT scanning performed of the cervical spine beginning at the base of the skull and continuing to the upper T-spine. 3-D multiplanar reconstruction with 3-D manipulation of volumetric data set in image rendering was completed by the radiologist and/or technologist with the supervision of the radiologist on independent workstation. FINDINGS: There is reversal of the normal cervical lordosis suggesting muscle spasm. C1 through C7 appear intact. There is disc space narrowing at the C5-6 level with anterior and posterior osteophytic spurring. There is very minor stable anterolisthesis of C3 on C4. The prevertebral soft tissues are normal. There is mild arthritic change of the Debbie axial joint with spurring of the anterior arch of C1. The lung apices are clear bilaterally. There is no visible pneumothorax in this limited view of the lung apices. IMPRESSION: Findings of muscle spasm along mild degenerate disc disease C5-6 Dictated by: Dr. Pee Weems MD 07/21/2020 17:59 Dr. Pee Weems MD in [facility] 07/21/2020 17:59
--- NOTE | 2020-07-20 23:11 | CT_ITS ---
PROCEDURE: CT HEAD/BRAIN WO CON CLINICAL INDICATION: fall COMPARISON: CT CT HEAD/BRAIN WO CON from 10/15/2019 TECHNIQUE: Axial images obtained. All CT scans at the facility use one or more dose reduction, viz: automated exposure control, ma/kV adjustment per patient size (including targeted exams where dose is matched to indication, i.e. head), or iterative reconstruction technique. FINDINGS: No midline shift, mass effect, intracranial hemorrhage, hydrocephalus, or extra-axial fluid collection is evident. The basilar cisterns are mildly prominent, the sylvian fissures and cortical sulci are somewhat prominent. There are no significant ischemic white matter changes. The calvarium has an unremarkable appearance. No mastoid effusion. No sinus air-fluid level. IMPRESSION: Findings of mild age-appropriate cortical atrophy, no acute intracranial pathology noted Dictated by: Dr. Pee Weems MD 07/21/2020 17:32 Dr. Pee Weems MD in [place] 07/21/2020 17:32
[2020-07-20 23:12] LABS: Basophils % 0.4 % (0.1-2.0); Eosinophils # 0.1 K/mm3 (0.0-0.4); Eosinophils % 1.4 % (0.1-12.0); Hematocrit 38.9 % (37.0-47.0); Hemoglobin 12.4 g/dL (12.2-16.2); Lymphocytes # 1.8 K/mm3 (0.7-4.5); Lymphocytes % 30.8 % (10-50); Mean Corpuscular HGB Conc 31.9 g/dL (31.8-35.4); Mean Corpuscular Hemoglobin 28.2 pg (27.0-31.2); Mean Corpuscular Volume 88.3 fl (81-99); Mean Platelet Volume 8.1 fl (7.4-10.4); Monocytes # 0.4 K/mm3 (0.1-1.0); Monocytes % 7.5 % (1.7-9.3); Neutrophils # 3.4 K/mm3 (1.8-7.8); Neutrophils % 59.9 % (37.0-80.0); Platelet Count 287 K/mm3 (142-424); Red Blood Count 4.41 M/mm3 (4.20-5.40); Red Cell Distribution Width 13.7 % (11.5-17.5); White Blood Count 5.7 K/mm3 (4.8-10.8)
[2020-07-20 23:19] LABS: Alanine Aminotransferase 12 U/L (12-78); Albumin Level 3.4 g/dl (3.5-5.0); Alkaline Phosphatase 67 U/L (38-126); Anion Gap 7.6 mEq/L (5-15); Aspartate Amino Transferase 23 U/L (14-36); Bilirubin,Indirect 0.5 mg/dL (0.0-0.9); Bilirubin,Total 0.5 mg/dl (0.2-1.3); Bilirubin,Unconjugated 0.5 mg/dL (0.0-1.1); Blood Urea Nitrogen 7 mg/dl (7-17); Calcium 8.5 mg/dl (8.4-10.2); Carbon Dioxide 27 mmol/L (22.0-30.0); Chloride 108 mmol/L (98-107); Creatinine Clearance Estimated 63 mL/min (50-200); Estimated Glomerular Filt Rate 85 ml/min (>60); GFR (African American) 103 ML/MIN (>60); Glucose 102 mg/dl (74-100); Potassium 3.6 mmoL/L (3.5-5.1); Sodium 139 mmol/L (136-145); Total Protein,Serum 6.7 g/dl (6.3-8.2)
[2020-07-20 23:30] VITALS: BP 146/92; PULSE 88; RESP 17; O2SAT 96
--- NOTE | 2020-07-20 23:41 | HMH.EDFALL ---
ED Disposition Clinical Impression: Chronic pain disorder Syncope Qualifiers: Syncope type: unspecified Qualified Code(s): R55 - Syncope and collapse Tibia/fibula fracture Qualifiers: Encounter type: initial encounter Fracture type: closed Laterality: right Qualified Code(s): S82.201A - Unspecified fracture of shaft of right tibia, initial encounter for closed fracture; S82.401A - Unspecified fracture of shaft of right fibula, initial encounter for closed fracture Hypothyroidism Qualifiers: Hypothyroidism type: acquired Qualified Code(s): E03.9 - Hypothyroidism, unspecified Disposition: Admitted As Inpatient Condition on Discharge: Fair Referrals: Lulu Noyola PA [Primary Care Provider] - - Critical Care Critical Care Time: No Attestation: On 07/20/20, the high probability of a clinically significant, sudden or life threatening deterioration of the following system(s) required my full and direct attention, intervention and personal management. The time I documented below is in addition to time spent performing reported procedures but includes the following listed in this critical care notation. Medical Decision Making - Medical Records Medical records reviewed: Yes: I reviewed the patient's medical records. - Daniele Inquiry Pt receiving controlled substance: No Vital Signs: 07/20/20 22:45 Temperature 98.2 F Temperature Source Oral Pulse Rate [Left Radial] 102 H Respiratory Rate 16 Blood Pressure [Right Arm] 135/89 Blood Pressure Mean [Right Arm] 104 Blood Pressure Source [Right Arm] Automatic Cuff Blood Pressure Position [Right Arm] Supine 02 Sat by Pulse Oximetry 98 Oxygen Delivery Method Room Air - Lab Data Lab results reviewed: Yes: I reviewed the patient's lab results. Lab Results 07/20/20 22:55: WBC 5.7, RBC 4.41, Hgb 12.4, Hct 38.9, MCV 88.3, MCH 28.2, MCHC 31.9, RDW 13.7, Plt Count 287, MPV 8.1, Neut % (Auto) 59.9, Lymph % (Auto) 30.8, Greenlee % (Auto) 7.5, Eos % (Auto) 1.4, Baso % (Auto) 0.4, Neut # (Auto) 3.4, Lymph # (Auto) 1.8, Greenlee # (Auto) 0.4, Eos # (Auto) 0.1, Baso # (Auto) 0.0 07/20/20 22:55: Sodium 139, Potassium 3.6, Chloride 108 H, Carbon Dioxide 27, Anion Gap 7.6, BUN 7, Creatinine 0.70, Estimated Creat Clear 63, Estimated GFR 85, Est GFR ( Amer) 103, Glucose 102 H, Calcium 8.5, Total Bilirubin 0.5, Direct Bilirubin 0.0, Conjugated Bilirubin 0.0, Indirect Bilirubin 0.5, Unconjugated Bilirubin 0.5, AST 23, ALT 12, Alkaline Phosphatase 67, Troponin I < 0.01, Total Protein 6.7, Albumin 3.4 L Result diagrams: 07/20/20 22:55 07/20/20 22:55 Orders (Tests/Meds): ED MEDICATIONS Generic Name Dose Route Start Last Admin Trade Name Freq PRN Reason Stop Dose Admin Sodium Chloride 1,000 mls @ 999 mls/hr 07/20/20 23:30 07/20/20 23:25 Sod Chlor 0.9% 1000ml Bag IV 07/21/20 00:30 999 mls/hr .Q1H1M PRITI Administration Discontinued Medications Generic Name Dose Route Start Last Admin Trade Name Freq PRN Reason Stop Dose Admin Morphine Sulfate 4 mg 07/20/20 23:19 07/20/20 23:26 Morphine 4mg/Ml Syringe IV 07/20/20 23:20 4 mg ONCE ONE Administration Ondansetron HCl 4 mg 07/20/20 23:19 07/20/20 23:26 Ondansetron 4mg/2ml Vial IV 07/20/20 23:20 4 mg ONCE ONE Administration ORDERS Category Date Time Status CT cervical spine wo con Stat Cat Scan 07/20/20 23:[address] head/brain wo con Stat Cat Scan 07/20/20 23:11 Ordered XR ankle RT 2V Stat Exams 07/20/20 23:04 Ordered XR chest portable Stat Exams 07/20/20 23:04 Ordered XR pelvis 1-2V Stat Exams 07/20/20 23:04 Ordered XR tibia fibula RT 2V Stat Exams 07/20/20 23:04 Ordered Full Resp Panel w/COVID ([facility]) Routine Lab 07/21/20 23:00 Received Troponin I Q3H Lab 07/21/20 02:15 Ordered Troponin I Q3H Lab 07/21/20 05:15 Ordered - Radiology Data #1 Image(s): Chest, Pelvis, Tib/Fib, Ankle Image Reviewed: Yes I reviewed the patient's radiology image Prelimina
[2020-07-21] VITALS (26 sets, daily range): BP systolic 100–146; BP diastolic 39–97; PULSE 73–106; RESP 15–20; TEMP 36.1–43; O2SAT 93–99; BMI 27.4
[2020-07-21 00:20] LABS: Troponin I < 0.01 ng/ml (0.00-0.034)
--- NOTE | 2020-07-21 00:48 | PC.NURSE ---
dr doran returned call
--- NOTE | 2020-07-21 00:51 | PC.NURSE ---
plan to admit.dr hoover spoke with alycebroomcorn thresher
--- NOTE | 2020-07-21 01:01 | PC.NURSE ---
Posterior splint applied to RLE and elevated on pillows. Pt tolerated well.
[2020-07-21 02:20] LABS: Adenovirus,PCR Not Detected (NotDetected); Bordetella Pertussis Not Detected (NotDetected); Chlamydophila Pneumoniae, PCR Not Detected (NotDetected); Coronavirus 19, PCR Not Detected (NotDetected); Coronavirus 229E Not Detected (NotDetected); Coronavirus NL63 Not Detected (NotDetected); Coronavirus OC43 Not Detected (NotDetected); Coronovirus HKU1,PCR Not Detected (NotDetected); Human Metapneumovirus Not Detected (NotDetected); Influenza A, PCR Not Detected (NotDetected); Influenza AH1, 2009 Not Detected (NotDetected); Influenza AH1, PCR Not Detected (NotDetected); Influenza AH3,PCR Not Detected (NotDetected); Influenza B, PCR Not Detected (NotDetected); Mycoplasma Pneumoniae, PCR Not Detected (NotDetected); Parainfluenza 1, PCR Not Detected (NotDetected); Parainfluenza 2, PCR Not Detected (NotDetected); Parainfluenza 3, PCR Not Detected (NotDetected); Parainfluenza 4, PCR Not Detected (NotDetected); Respiratory Syncytial Virus Not Detected (NotDetected); Rhinovirus/Enterovirus Not Detected (NotDetected)
[2020-07-21 02:37] LABS: Troponin I < 0.01 ng/ml (0.00-0.034)
--- NOTE | 2020-07-21 02:50 | PC.NURSE ---
patient up to floor via stretcher.
--- NOTE | 2020-07-21 03:51 | PC.NURSE ---
Addendum entered by Kayla Miller RN 07/21/20 03:52: pt also states that she takes the prolia injection Original Note: while completing med rec, patient stated that her rosuvastatin has been decreased to 5 mg, that medication was added, she also stated that she hasn't used the azelastine HCl yet
--- NOTE | 2020-07-21 05:39 | PC.NURSE ---
no acute changes since arriving to the floor, has had no complaints of SOA, chest pain, N/V, pt has complained of pain one time so far since arriving to floor and was treated per AUG, right leg has remained elevated
[2020-07-21 06:40] LABS: Troponin I < 0.01 ng/ml (0.00-0.034)
--- NOTE | 2020-07-21 07:29 | HMH.PHAVTE ---
[facility] Pharmacy VTE Monitoring - Patient Demographics Admission date: 07/21/20 Report Date: 07/21/20 Time: 07:30 Allergies/Adverse Reactions: Patient Allergies captopril Allergy (Mild, Verified 07/21/20 03:22) Hives Height: 1.6 m Weight: 70.307 kg Patient Problems: Current Active Problems (Last Reviewed 08/20/17 @ 15:21 by Ray Kahn) Tibia/fibula fracture (Acute) Chronic pain disorder (Acute) Syncope (Chronic) Hypothyroidism (Chronic) - VTE Risk Labs: VTE Related Lab Results Hgb 12.4 g/dL (12.2-16.2) 07/20/20 22:55 Hct 38.9 % (37.0-47.0) 07/20/20 22:55 Plt Count 287 K/mm3 (142-424) 07/20/20 22:55 BUN 7 mg/dl (7-17) 07/20/20 22:55 Creatinine 0.70 mg/dl (0.52-1.04) 07/20/20 22:55 Estimated Creat Clear 63 mL/min (50-200) 07/20/20 22:55 Was VTE Risk Assessment Performed: Yes VTE Score: 8 VTE Risk Level: Moderate Risk Clinical Trial Participant: No - Prophylaxis VTE Prophylaxis Ordered?: Yes Types of VTE Prophylaxis: TEDS Knee High
--- NOTE | 2020-07-21 08:00 | CA_ITS ---
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 Crude Unit: Cordelia Low RVT Laterality: Bilateral Study Quality: Excellent Indications: syncope Doppler Spectral Velocity Analysis ECA (R) 58.30/10.30 cm/s ECA (L) 62.50/12.90 cm/s dICA (R) 104.50/45.40 cm/s dICA (L) 128.50/56.50 cm/s Chay (R) 53.10/27.40 cm/s Chay (L) 97.70/40.30 cm/s pICA (R) 71.10/19.70 cm/s pICA (L) 64.30/23.10 cm/s dCCA (R) 52.30/13.70 cm/s dCCA (L) 49.70/17.10 cm/s pCCA (R) 48.00/7.70 cm/s pCCA (L) 61.70/18.00 cm/s Vert (R) 54.00/13.70 cm/s Vert (L) 54.00/16.30 cm/s ICA/CCA 2.00 ICA/CCA 2.59 Findings Velocity measurements consistent with less than 50% stenosis of the bilateral internal cartoid arteries. Antegrade flow seen bilateral vertebral arteries. Conclusion Velocity measurements consistent with less than 50% stenosis of the bilateral internal cartoid arteries. Antegrade flow seen bilateral vertebral arteries. Electronically signed by : Taylor Sinha MD 07/22/2020 14:19:17
--- NOTE | 2020-07-21 08:00 | CA_ITS ---
APPROVED REPORT EXAM: Comprehensive 2D, Doppler, and color-flow Echocardiogram Materials Planner: Cordelia Low RVT Ht: 5 ft 3 in Wt: 150lbs BSA: 1.71 BP: 135/89 mmHg Indications: syncope,dd,loop recorder TDS-PT FLAT ON BACK-BROKEN LEG 2D Dimensions LVOT 2.03 cm (M/F) 1.5-2.5 M-Mode Dimensions RVDd 2.46 cm (0.9-2.6) LA Diam 2.92 cm (1.9-4.0) LVDd 4.18 cm (3.5-5.7) Ao Diam 3.12 cm (2.0-3.7) LVDs 2.64 cm (3.5-5.7) IVSd 0.68 cm (0.6-1.1) PWd 0.71 cm (0.6-1.1) EF (Teich) 67.10% FS 36.80% EDV (Teich) 77.70 mL ESV (Teich) 25.60 mL LV Diastology MED E' 5.60 (< 7 cm/sec) LAT E' 5.70 (<10 cm/sec) Aortic Valve AI PHT 719.00 ms AO Peak GR. 6.70 mmHg Pulmonary Valve PV Peak Velocity 87.00 (50-150 cm/s) Left Ventricle Left atrium is upper limit of normal size, left ventricle is normal size, there is mild concentric left ventricular hypertrophy, visually estimated ejection fraction 55% with no regional wall motion abnormality, grade 1 diastolic dysfunction seen without tissue Doppler evidence of raise left atrial pressure. Right Ventricle Right atrium and right ventricle are normal size and contractility. Aortic Valve Aortic valve is minimally thickened and fibrosed, there is no aortic stenosis, there is mild aortic insufficiency. Mitral Valve Mitral valve is grossly normal, there is trace mitral regurgitation. Tricuspid Valve Tricuspid valve grossly normal, there is trace tricuspid regurgitation, tricuspid regurgitation jet velocity is inadequate for calculation of the right ventricular systolic pressure. Pulmonic Valve Pulmonic valve is poorly visualized. Great Vessels Aortic root is normal size. Pericardium Trivial pericardial effusion and anterior echo-free space seen. Conclusion 1. Normal left ventricular size, mild concentric left ventricular hypertrophy, visually estimated ejection fraction 55% with no regional wall motion abnormality, grade 1 diastolic dysfunction seen without tissue Doppler evidence of raise left atrial pressure. 2. Mild aortic, trace mitral and tricuspid regurgitation. 3. Trivial pericardial effusion and anterior echo-free space seen. Electronically signed by : Mario Berry, 07/22/2020 11:26:08
--- NOTE | 2020-07-21 08:14 | HMH.HP ---
*Admission Date: 07/21/20 *Chief complaint: Fall after syncopal episode *History of present illness: 60-year-old female patient reports she became dizzy, blacked out and fell. Upon awakening she was unable to get up she was delivered to [facility] emergency department with reports of right lower leg pain. She reports she has had syncopal exposures in the past last one being last month. She does have a loop recorder and reports the batteries have and need to be replaced. She denies any seizures or incontinence and she does have a pain pump for chronic pain issues. Ortho was made aware of patient last night and will see this morning, cardiology has been consulted and will see this morning also. She does have a history of hypertension, CAD, arrhythmia, anxiety, thyroid disease, and chronic pain Right leg lower extremity x-ray showing (fx tib/fib) All other x-rays and CT scans are pending final reading The emergency department lab work was unremarkable, troponins negative x3 In the emergency department pain was managed with morphine IV and she received 1 L of normal saline 60-year-old female lying in bed she reports her pain is under control, vital signs are stable oxygenation is 93% on room air She is n.p.o. and cleared for surgery from a medical standpoint, awaiting cardiology input [facility] History I have reviewed the patient's past medical history: Yes Medical History: Reports:: Anxiety, Arrhythmia, Asthma, Chronic Obstructive Pulmonary Disease (COPD), Coronary Artery Disease, Depression, Gastroesophageal Reflux Disease(GERD), Hyperlipidemia, Hypertension, Migraine, Palpitations Denies:: Cancer, Diabetes Mellitus Type 1, Diabetes Mellitus Type 2, Internal Pacemaker, MRSA, Seizures *Have you ever received a pneumonia vaccine?: Yes *Have you received a flu vaccine this season?: Yes Other Medical History: Reports: Arthritis, Fibromyalgia, Hormone Therapy, Hypothyroidism, Liver Disease, Thyroid Disease, Other. Denies: Blood Transfusion Reaction Other Surgeries: Yes: No Previous Surgery, Appendectomy, BSO, Cardiac Catheterization, Cholecystectomy, Colonoscopy, , EGD, Hysterectomy-Total, Thyroidectomy. No: Pacemaker. Comment Only: Other (loop recorder insertion) Amputation: No Fractures: Yes (2018- FX. LEFT ANKLE) - *Social History Smoking Status: Never smoker Alcohol Intake: current Alcohol Intake Frequency:: holidays/special occasions only Substance Use Type: denies use *Occupational Status:: unemployed Housing: apartment Household Members: none *Travel in the last 8 weeks: None - Psychiatric History Pschychiatric History:: Reports:: Anxiety, Depression Family Hx:: Cancer, Coronary Artery Disease, Diabetes, Heart Attack, Hyperlipidemia, Hypertension, Kidney Disease, Thyroid Disorder Review of Systems - Review of Systems Review of systems:: pertinent systems reviewed and negative unless documented below - Constitutional Denies anorexia, Denies chills - Eyes Denies blind spots, Denies sensitivity to light - ENT Reports dizziness, Denies abnormal hearing, Denies hearing loss - *Cardiovascular Reports lightheadedness, Denies chest pain, Denies shortness of breath - *Respiratory Denies chest congestion, Denies shortness of breath - *Gastrointestinal Denies abdominal pain, Denies change in stools - *Musculoskeletal Reports abnormal walking, Denies decreased muscle mass - Integumentary/Breasts Denies hair loss, Denies wounds - *Neurologic Reports dizziness, Denies localized weakness, Denies headache(s), Denies seizure-like activity - Psychiatric Denies change in appetite, Denies difficulty concentrating - Endocrine Denies cold intolerance, Denies heat intolerance - Hematologic/Lymphatic Denies easy bleeding, Denies easy bruising - Allergic/Immunologic Denies GI upset with certain foods, Denies throat swelling Meds Home Medications Medication Instructions Recorde
--- NOTE | 2020-07-21 08:52 | HMH.CNCARD ---
History of Present Illness Consult date: 07/21/20 Requesting physician: Emery Kellogg Consult reason: pre-op evaluation Chief complaint: syncope and pre op Additional Medical History:: 1. Syncopal episode (07/21/20) 2. Fractured shaft of the right tibia (07/21/20) 3. THAI a. Untreated 4. Hyperlipidemia a. LDL 167. Pt is on a statin. 5. Carotid artery disease a. Bilateral ICAs 20-49%. Tortuous of the Left ICA 6. Hypothyroidism 7. Loop recorder a. Battery 6 months ago. 8. Mid proximal LAD (2018) History of present illness: 60-year-old female admitted to [facility] with syncopal episode. Patient stated while she was home, she heard and knock on the door went into the door, then fell down the steps resulting in a right fracture shaft of the tibia. Patient states the reason for her fall was syncopal episode. She states she had does have a history of the syncopal episodes. Patient states last syncopal episodes was around 3 weeks ago. Patient does have loop recorder in place due to history of the syncopal episodes. Battery 6 months ago and at that time patient has refused to have it replaced. Offered patient to have loop recorder battery replaced during this visit. Patient states she will have to think about it. She stated she is more concerned about her fracture and wanting to get it repaired before having her loop recorder replaced. Patient denies chest pain, tightness or pressure. Patient does complain of shortness of breath but states this is not new. Patient denies tobacco use. Patient does have history of asthma and COPD. No swelling noted of the lower extremity. Bruising is noted to the right ankle, good pulses are noted. 2019: CN I revealed 20 -49% bilaterally. LICA noted as Tortuous. Last heart catheterization 2018 revealed mid proximal LAD with normal EF and Lvedp. Patient does have history of THAI which is untreated. History of hyperlipidemia which patient is on Crestor. Initial work-up was performed. EKG revealed normal sinus rhythm, left axis deviation with a heart rate of 94 bpm. Labs were unremarkable. Cardiac serial enzymes negative. Preliminary echo revealed EF 55% with mild aortic regurgitation. Waiting official echo reading. CNI ordered due to DIANN. Discussed plan of care with Dr. Chilel. Due to heart catheterization in 2018 with mild mid proximal LAD with a normal EF and normal LVEDP, will hold from any cardiac testing at this time. Discussed with patient having battery replaced in the loop recorder while she is an inpatient. Discussed the risk and benefits. Patient states she is more worried about her ankle at this time and will think it over as to whether or not she would like the battery replaced. Uncertain at this time as to whether patient will undergo surgery due to the fractured shaft of the tibia. Will defer that to orthopedic. From a cardiac standpoint patient is at a low and acceptable risk to proceed with her elective surgery. Thank you for allowing cardiology to participate in the care of this patient. [facility] History I have reviewed the patient's past medical history: Yes Medical History: Reports:: Anxiety, Arrhythmia, Asthma, Chronic Obstructive Pulmonary Disease (COPD), Coronary Artery Disease, Depression, Gastroesophageal Reflux Disease(GERD), Hyperlipidemia, Hypertension, Migraine, Palpitations Denies:: Cancer, Diabetes Mellitus Type 1, Diabetes Mellitus Type 2, Internal Pacemaker, MRSA, Seizures *Have you ever received a pneumonia vaccine?: Yes *Have you received a flu vaccine this season?: Yes Other Medical History: Reports: Arthritis, Fibromyalgia, Hormone Therapy, Hypothyroidism, Liver Disease, Thyroid Disease, Other. Denies: Blood Transfusion Reaction Other Surgeries: Yes: No Previous Surgery, Appendectomy, BSO, Cardiac Catheterization, Cholecystectomy, Colonoscopy, , EGD, Hysterectomy-Total, Thyroidectomy. No: Pacemaker. Comment Only
--- NOTE | 2020-07-21 10:42 | HMH.PHAINT ---
CLARIFIED HOME MEDICATION LIST USING LIST FROM CLINIC PHARMACY.
--- NOTE | 2020-07-21 11:52 | HMH.ORTHOCON ---
*Admission Date: 07/21/20 *Reason for consult:: Fracture tibia, right and fracture lateral malleolus, right *History of present illness: 60-year-old female patient admitted to hospital from the ER for management of right tibial shaft and lateral malleolus fractures. Patient reports that she became dizzy, blacked out and fell sustaining injury to the right lower extremity. Upon awakening she was unable to get up she was brought to [facility] emergency department with reports of right lower leg pain. She reports she has had multiple syncopal attacks in the past. She does have a loop recorder and reports the batteries have and need to be replaced. She denies any seizures or incontinence and she does have a pain pump for chronic pain issues. She has previous history of right ankle fracture in September 2015 treated conservatively and also a left ankle fracture in October 2017 again treated nonoperatively. She does have a history of hypertension, CAD, arrhythmia, anxiety, thyroid disease, and chronic pain. She reports no other injuries during this fall and no history of any distal tingling or numbness. [facility] History I have reviewed the patient's past medical history: Yes Medical History: Reports:: Anxiety, Arrhythmia, Asthma, Chronic Obstructive Pulmonary Disease (COPD), Coronary Artery Disease, Depression, Gastroesophageal Reflux Disease(GERD), Hyperlipidemia, Hypertension, Migraine, Palpitations Denies:: Cancer, Diabetes Mellitus Type 1, Diabetes Mellitus Type 2, Internal Pacemaker, MRSA, Seizures *Have you ever received a pneumonia vaccine?: Yes *Have you received a flu vaccine this season?: Yes Other Medical History: Reports: Arthritis, Fibromyalgia, Hormone Therapy, Hypothyroidism, Liver Disease, Thyroid Disease, Other. Denies: Blood Transfusion Reaction Other Surgeries: Yes: No Previous Surgery, Appendectomy, BSO, Cardiac Catheterization, Cholecystectomy, Colonoscopy, , EGD, Hysterectomy-Total, Thyroidectomy. No: Pacemaker. Comment Only: Other (loop recorder insertion) Amputation: No Fractures: Yes (2018- FX. LEFT ANKLE) - *Social History Smoking Status: Never smoker Alcohol Intake: current Alcohol Intake Frequency:: holidays/special occasions only Substance Use Type: denies use *Occupational Status:: unemployed Housing: apartment Household Members: none *Travel in the last 8 weeks: None - Psychiatric History Pschychiatric History:: Reports:: Anxiety, Depression Family Hx:: Cancer, Coronary Artery Disease, Diabetes, Heart Attack, Hyperlipidemia, Hypertension, Kidney Disease, Thyroid Disorder Review of Systems - Review of Systems Review of systems:: pertinent systems reviewed and negative unless documented below - Constitutional Denies body ache(s), Denies chills, Denies fever(s) - Eyes Denies change in vision - ENT Denies abnormal hearing - *Cardiovascular Denies chest pain, Denies shortness of breath - *Respiratory Denies chest congestion, Denies cough, Denies shortness of breath - *Gastrointestinal Denies abdominal pain - *Musculoskeletal Reports abnormal walking, Reports joint pain, Reports deformity, Reports joint swelling, Reports limited joint movement - *Neurologic Reports abnormal walking, Reports dizziness, Denies abnormal hearing, Denies localized weakness, Denies headache(s), Denies seizure-like activity - Endocrine Denies cold intolerance, Denies heat intolerance - Hematologic/Lymphatic Denies easy bleeding, Denies easy bruising Meds Home Medications Medication Instructions Recorded Confirmed Type morphine 1 mg/mL (1 mL) in 0.9 % 0.9 mg CONTINUOUS IV INFUSION 06/02/20 08/18/20 History sodium chloride intravenous syringe DAILY ml metoprolol succinate 50 mg 50 mg PO HS tab 07/12/20 08/18/20 History tablet,extended release 24 hr rosuvastatin 10 mg tablet 10 mg PO HS tab 07/12/20 08/18/20 History RX: Duloxetine HCl [Cymbalta] 60 mg PO DAILY 07/21/20 08/18/20 History RX: L
--- NOTE | 2020-07-21 13:32 | HMH.ANESCL ---
[facility] Anesthesia Checklist - Patient Identification Patient Identification: Arm Band - Structural Data Admitted From: Inpatient Planned Operative Procedure/s: Right Tibial Nailing, ORIF Right Ankle Consent for Planned Operative Procedure(s) Verified: Yes Verified Documents: Surgical Consent, History and Physical - NPO Status Verified Time NPO: 00:00 - Additional verifications Anesthesia Reactions: No Hx Blood Transfusions: No Blood Transfusion Reaction: No - Airway Assessment C-Spine Mobility Assessed: Yes (mp2) TMJ Mobility Assessed: Yes Dentition: Good Dentition - Neurological Assessment Level of Consciousness: Awake, Alert - Anesthesia Plan Anesthesia Risk discussed: Yes Anesthesia Plan: Verified ASA Class: III Anesthesia Type: General [facility] History I have reviewed the patient's past medical history: Yes Medical History: Reports:: Anxiety, Arrhythmia, Asthma, Chronic Obstructive Pulmonary Disease (COPD), Coronary Artery Disease, Depression, Gastroesophageal Reflux Disease(GERD), Hyperlipidemia, Hypertension, Migraine, Palpitations Denies:: Cancer, Diabetes Mellitus Type 1, Diabetes Mellitus Type 2, Internal Pacemaker, MRSA, Seizures *Have you ever received a pneumonia vaccine?: Yes *Have you received a flu vaccine this season?: Yes Other Medical History: Reports: Arthritis, Fibromyalgia, Hormone Therapy, Hypothyroidism, Liver Disease, Thyroid Disease, Other. Denies: Blood Transfusion Reaction Anesthesia experience/problems:: nac Other Surgeries: Yes: Appendectomy, BSO, Cardiac Catheterization, Cholecystectomy, Colonoscopy, , EGD, Hysterectomy-Total, Thyroidectomy. No: Pacemaker. Comment Only: Other (loop recorder insertion) Amputation: No Fractures: Yes (2018- FX. LEFT ANKLE) - *Social History Smoking Status: Never smoker Alcohol Intake: current Alcohol Intake Frequency:: holidays/special occasions only Substance Use Type: denies use *Occupational Status:: unemployed Housing: apartment Household Members: none *Travel in the last 8 weeks: None - Psychiatric History Pschychiatric History:: Reports:: Anxiety, Depression Family Hx:: Cancer, Coronary Artery Disease, Diabetes, Heart Attack, Hyperlipidemia, Hypertension, Kidney Disease, Thyroid Disorder
--- NOTE | 2020-07-21 18:01 | HMH.ANESI ---
[facility] Anesthesia Record Part I Intake, IV Amount: 2,000 Estimated blood loss (mL): 100 Urine output (mL): 1,500 Blood Products used (#): none Blood Pressure: 100/56 SaO2: 99 Pulse Rate: 100 Respiratory Rate: 18 Temperature: 97 F Patient is:: Awake Stable to PACU at:: 18:02
--- NOTE | 2020-07-21 18:46 | PC.NURSE ---
1820-detailed report called to HILLARY Hunt 1822-pt transported to med/surg room 204 via hospital bed per hillary zel[facility] and [facility] and left in care of hilalry hunt with bed locked in lowest position, vss, pt stable.
--- NOTE | 2020-07-21 18:50 | XR_ITS ---
PROCEDURE: XR TIBIA FIBULA RT 2V CLINICAL INDICATION: RIGHT TIBIAL NAILING IN OR COMPARISON: No exams were available for comparison FINDINGS: Multiple fluoroscopic spot films show placement of the long intramedullary jose a stabilizing the the spiral oblique fracture of the tibia. There is a long metallic side plate fixated fixated by several serrated screws reducing the comminuted distal fibular fracture in anatomic alignment. The ankle mortise appears normal. IMPRESSION: Satisfactory ORIF distal tibia and fibular fractures Dictated by: Dr. Pee Weems MD 07/22/2020 08:43 Dr. Pee Weems MD in OV 07/22/2020 08:43
[2020-07-21 18:57] LABS: Microscopic,Cath URINE MICROSCOPIC (MICROSCOPIC)
[2020-07-21 18:58] LABS: Appearance,Urine/Cath CLEAR (Clear); Bilirubin,Cath Negative (Negative); Blood, Urine/Cath Negative (Negative); Color,Urine/Cath STRAW (Yellow); Glucose,Urine/Cath (UA) Negative (Negative); Ketones,Urine/Cath TRACE (Negative); Leukocyte Esterase,Cath Negative (Negative); Nitrate,Cath Negative (Negative); PH,Urine/Cath 5.5 (5.0-8.5); Protein,Urine/Cath Negative (Negative); Urobilinogen,Cath 0.2 EU/dl (0.2)
--- NOTE | 2020-07-21 19:19 | HMH.OPNOTE ---
Date of procedure: 07/21/20 Pre-op Diagnosis:: 1. Closed, comminuted, displaced fracture shaft tibia, right 2. Closed, comminuted, displaced fracture lateral malleolus, right ankle Post-op Diagnosis:: Same Procedure performed:: 1. Closed reduction and intramedullary nailing, right tibia 2. Open reduction and internal fixation, right ankle Surgeon:: Jared Orta MD Behavioral Consultant(s):: Nasreen Song CAR CLEANING SUPERVISOR:: Other (Paras Donovan) Anesthesia: GETA Estimated blood loss (mL): 100 Clinical Note:: 60-year-old female patient admitted to hospital from the ER for management of right tibial shaft and lateral malleolus fractures. Patient reports that she became dizzy, blacked out and fell sustaining injury to the right lower extremity. Upon awakening she was unable to get up she was brought to [facility] emergency department with reports of right lower leg pain. She reports she has had multiple syncopal attacks in the past. She does have a loop recorder and reports the batteries have and need to be replaced. She denies any seizures or incontinence and she does have a pain pump for chronic pain issues. She has previous history of right ankle fracture in September 2015 treated conservatively and also a left ankle fracture in October 2017 again treated nonoperatively. She does have a history of hypertension, CAD, arrhythmia, anxiety, thyroid disease, and chronic pain. She reports no other injuries during this fall and no history of any distal tingling or numbness. She is a non-smoker. The patient was splinted and admitted for surgical management. Please refer to my consult note for full details. Operative findings:: A displaced, comminuted, unstable spiral fracture of the distal third shaft of the right tibia. Also there is a displaced spiral fracture of the lateral malleolus as noted on the preoperative imaging. The inferior tibiofibular syndesmosis noted to be intact with stable and congruent ankle mortise. The tibia was reduced and fixed in a stable fashion with intramedullary nailing. The lateral malleolus fracture was reduced anatomically and fixed with plate and screws. Moderate soft tissue swelling was noted over the distal third of the leg and around the ankle. Operative note:: Prior to surgery the patient was met in the preoperative holding area and positively identified. A physical examination was performed and documented. The operative site was marked and initialed by me. I have again discussed about the diagnosis, natural history and management options. Given the fracture pattern, displacement and shortening, I have recommended a closed/open reduction and internal fixation of the tibial shaft fracture as well as open reduction internal fixation of the lateral malleolus fracture. I have discussed the details of the proposed surgical procedures, risks and benefits and alternatives. We have outlined where the incisions will be on the skin. Risks of surgery discussed include but are not limited to- infection, bleeding, injury to nerves and blood vessels, compartment syndrome, fat embolism, intra-articular knee injury, incisional scar (cosmesis), DVT/PE, malunion, nonunion/delayed union, refracture, knee/ankle stiffness and pain, knee and ankle arthritis, CRPS (complex regional pain syndrome- pain, sensory and temperature changes, swelling and stiffness), painful/prominent hardware, loss of fixation/hardware failure, incomplete relief of pain, incomplete return of function, and likely need for further surgery in future and also the risks of anesthesia including heart attack, stroke, and even . We've discussed how there is a small but real possibility of loss of use of the leg, loss of the limb or loss of life itself. I have also explained how additional surgery may be required if there are any complications or the fractures fails to heal. I have explained the postoperative pain management, recovery and rehabilitation, immobilization required, th
[2020-07-21 19:56] LABS: Bacteria,Urine/Cath 1+ /lpf
[2020-07-22] VITALS (10 sets, daily range): BP systolic 113–141; BP diastolic 74–92; PULSE 80–110; RESP 16–22; TEMP 36.4–36.9; O2SAT 95–99; BMI 27.5
--- NOTE | 2020-07-22 05:26 | PC.NURSE ---
Pt is A&Ox4. Polar pack remains on RLE. Drsing remains CDI. Pt has had x1 episode of anxiety this shift, MD Goldman (bacon de rinder for MD Kellogg) notified, Lorazepam home med restarted. SCUD remains on LLE. IS done hourly while awake. IS @ best 1500cc's. Pt tolerated regular diet appropriately this shift. Donovan cath d/c's this shift per MD Orta's orders. Pt did state this shift that she would like cardiology to replace battery in loop recorder. This will be passed on to dayshift, to notify cardiology. No other acute changes or complaints at this time.
[2020-07-22 06:09] LABS: Basophils % 0.1 % (0.1-2.0); Eosinophils % 0.1 % (0.1-12.0); Hematocrit 31.9 % (37.0-47.0); Hemoglobin 10.3 g/dL (12.2-16.2); Lymphocytes # 1.1 K/mm3 (0.7-4.5); Lymphocytes % 15.3 % (10-50); Mean Corpuscular HGB Conc 32.3 g/dL (31.8-35.4); Mean Corpuscular Hemoglobin 27.7 pg (27.0-31.2); Mean Corpuscular Volume 85.8 fl (81-99); Mean Platelet Volume 8.1 fl (7.4-10.4); Monocytes # 0.6 K/mm3 (0.1-1.0); Monocytes % 8.4 % (1.7-9.3); Neutrophils # 5.7 K/mm3 (1.8-7.8); Neutrophils % 76.2 % (37.0-80.0); Platelet Count 260 K/mm3 (142-424); Red Blood Count 3.72 M/mm3 (4.20-5.40); Red Cell Distribution Width 13.7 % (11.5-17.5); White Blood Count 7.5 K/mm3 (4.8-10.8)
[2020-07-22 06:40] LABS: Chloride 108 mmol/L (98-107); Potassium 3.9 mmoL/L (3.5-5.1); Sodium 139 mmol/L (136-145)
[2020-07-22 06:43] LABS: Anion Gap 8.9 mEq/L (5-15); Carbon Dioxide 26 mmol/L (22.0-30.0)
[2020-07-22 06:44] LABS: Calcium 8.6 mg/dl (8.4-10.2); Glucose 137 mg/dl (74-100)
[2020-07-22 06:48] LABS: POC Glucose,Bedside 139 (70-110)
[2020-07-22 06:57] LABS: Blood Urea Nitrogen 4 mg/dl (7-17); Creatinine Clearance Estimated 66 mL/min (50-200); Estimated Glomerular Filt Rate 102 ml/min (>60); GFR (African American) 123 ML/MIN (>60)
--- NOTE | 2020-07-22 08:07 | HMH.PNCARD ---
Subjective Date: 07/22/20 Time: 08:07 Principal diagnosis: Fall with right lower extremity fracture, possible syncope Interval history: 60-year-old white female in bed in no acute distress. States she did not sleep very well last night due to wanting other inpatients. Discussed the events regarding her fall and fracture. Patient now relates that she was getting up to go to the door when she hit the corner of her entertainment center and saw stars and then passed out, falling and suffering a right lower extremity fracture. She has now undergone surgical repair and has no complaints. Regarding her similar episode 3 weeks ago patient is somewhat fuzzy regarding the circumstances but feels that it was a similar situation as far as getting up and then getting lightheaded or dizzy. Patient's loop recorder is no longer working. The battery has reached end-of-life. We did discuss replacing it but again patient wishes to wait at this time. Exam Vital signs and Labs for Last 24 Hours: Temp Pulse Resp BP Pulse Ox 98.2 F 107 H 17 116/81 96 07/22/20 07:29 07/22/20 07:29 07/22/20 07:29 07/22/20 07:29 07/22/20 07:29 Laboratory Results - last 24 hr 07/21/20 14:00: Urine Color Straw, Urine Appearance Clear, Urine pH 5.5, Ur Specific [place] 1.020, Urine Protein Negative, Urine Glucose (UA) Negative, Urine Ketones Trace, Urine Blood Negative, Urine Nitrate Negative, Urine Bilirubin Negative, Urine Urobilinogen 0.2, Ur Leukocyte Esterase Negative, Urine RBC None, Urine WBC 5-10, Ur Squamous Epith Cells 10-20, Urine Bacteria 1+ 07/22/20 00:51: POC Glucose 139 H 07/22/20 05:54: WBC 7.5 D, RBC 3.72 L, Hgb 10.3 L, Hct 31.9 L, MCV 85.8, MCH 27.7, MCHC 32.3, RDW 13.7, Plt Count 260, MPV 8.1, Neut % (Auto) 76.2, Lymph % (Auto) 15.3, [place] % (Auto) 8.4, Eos % (Auto) 0.1, Baso % (Auto) 0.1, Neut # (Auto) 5.7, Lymph # (Auto) 1.1, [place] # (Auto) 0.6, Eos # (Auto) 0.0, Baso # (Auto) 0.0 07/22/20 05:54: Sodium 139, Potassium 3.9, Chloride 108 H, Carbon Dioxide 26, Anion Gap 8.9, BUN 4 L D, Creatinine 0.60, Estimated Creat Clear 66, Estimated GFR 102, Est GFR ( Amer) 123, Glucose 137 H, Calcium 8.6 I & O for Last 24 hours: Intake & Output 07/19/20 07/20/20 07/21/20 07/22/20 11:59 11:59 11:59 11:59 Intake Total 1000 / 1000 2580 / 2580 Output Total 1700 / 1700 Balance 1000 / 1000 880 / 880 Weight 155 lb 155 lb 8 oz - *Routine Respiratory Exam Present: CTA bilaterally - *Routine Cardiovascular Exam Present: RRR - *Routine Extremities Exam Absent: cyanosis, clubbing, edema Comments: Right lower extremity wrapped in cast. Progress Note: A&P (1) Tibia/fibula fracture Status: Acute (2) Chronic pain disorder Status: Acute (3) Hyperlipidemia Status: Chronic (4) Syncope and collapse Status: Acute (5) Paroxysmal SVT (supraventricular tachycardia) Status: Acute (6) CAD (coronary artery disease) Status: Chronic (7) Heart palpitations Status: Acute (8) Syncope Status: Chronic (9) HTN (hypertension) Status: Chronic Assessment and Plan for All Diagnoses:: 1. Cardiac status is stable. No arrhythmias noted on telemetry. Episodes of near syncope and syncope likely related to orthostatic blood pressure drop and events surrounding recent injury as noted above. Offered replacement of her loop recorder which she declined at this time. Advised caution with ambulation to try and prevent further episodes of sudden drop in her blood pressure. 2. Tib-fib fracture status post surgical repair. 3. With patient's recent fracture and expected sedentary lifestyle, agree with Xarelto 20 mg daily for least 3 weeks for DVT prophylaxis. Okay for discharge from cardiology standpoint on home medications of metoprolol XL 50 mg daily and Crestor 10 mg daily. Okay to hold aspirin while patient is on Xarelto. Follow-up in our office in 2 to 3 weeks.
--- NOTE | 2020-07-22 08:21 | HMH.ACPN2 ---
Internal Medicine - PN: Subj *Date: 07/22/20 *Time: 08:27 Interval history: doing better- awake has been seen by card - pt awaiting therapy - will need pain meds and dvt precautions - discussed with dr whatley yesterday - discussed with pt about therapy- Exam Vital signs and Labs for Last 24 Hours: Temp Pulse Resp BP Pulse Ox 98.2 F 107 H 17 116/81 96 07/22/20 07:29 07/22/20 07:29 07/22/20 07:29 07/22/20 07:29 07/22/20 07:29 Laboratory Results - last 24 hr 07/21/20 14:00: Urine Color Straw, Urine Appearance Clear, Urine pH 5.5, Ur Specific [place] 1.020, Urine Protein Negative, Urine Glucose (UA) Negative, Urine Ketones Trace, Urine Blood Negative, Urine Nitrate Negative, Urine Bilirubin Negative, Urine Urobilinogen 0.2, Ur Leukocyte Esterase Negative, Urine RBC None, Urine WBC 5-10, Ur Squamous Epith Cells 10-20, Urine Bacteria 1+ 07/22/20 00:51: POC Glucose 139 H 07/22/20 05:54: WBC 7.5 D, RBC 3.72 L, Hgb 10.3 L, Hct 31.9 L, MCV 85.8, MCH 27.7, MCHC 32.3, RDW 13.7, Plt Count 260, MPV 8.1, Neut % (Auto) 76.2, Lymph % (Auto) 15.3, [place] % (Auto) 8.4, Eos % (Auto) 0.1, Baso % (Auto) 0.1, Neut # (Auto) 5.7, Lymph # (Auto) 1.1, [place] # (Auto) 0.6, Eos # (Auto) 0.0, Baso # (Auto) 0.0 07/22/20 05:54: Sodium 139, Potassium 3.9, Chloride 108 H, Carbon Dioxide 26, Anion Gap 8.9, BUN 4 L D, Creatinine 0.60, Estimated Creat Clear 66, Estimated GFR 102, Est GFR ( Amer) 123, Glucose 137 H, Calcium 8.6 I & O for Last 24 hours: Intake & Output 07/19/20 07/20/20 07/21/20 07/22/20 11:59 11:59 11:59 11:59 Intake Total 1000 / 1000 2580 / 2580 Output Total 1700 / 1700 Balance 1000 / 1000 880 / 880 Weight 155 lb 155 lb 8 oz - Constitutional no acute distress - *Routine HEENT Exam Head: Present: normocephalic Eye: Present: EOMI, PERRL ENT: Present: mucous membranes moist - *Routine Neck Exam Present: supple - *Routine Respiratory Exam Present: CTA bilaterally - *Routine Cardiovascular Exam Present: RRR - *Routine Abdominal Exam Present: soft - *Routine Extremities Exam Comments: rt lower leg with splint - *Routine Skin Exam Present: intact - *Routine Neurological Exam Present: alert, oriented X3, CN II-XII intact - Routine Psychiatric Exam Present: normal affect Assessment and Plan (1) Tibia/fibula fracture Status: Acute Qualifiers: Encounter type: initial encounter Fracture type: closed Laterality: right Qualified Code(s): S82.201A - Unspecified fracture of shaft of right tibia, initial encounter for closed fracture; S82.401A - Unspecified fracture of shaft of right fibula, initial encounter for closed fracture Category: Medical Code(s): S82.209A - Unspecified fracture of shaft of unspecified tibia, initial encounter for closed fracture; S82.409A - Unspecified fracture of shaft of unspecified fibula, initial encounter for closed fracture (2) Chronic pain disorder Status: Acute Category: Medical Code(s): G89.4 - Chronic pain syndrome (3) Hyperlipidemia Status: Chronic Qualifiers: Hyperlipidemia type: mixed hyperlipidemia Qualified Code(s): E78.2 - Mixed hyperlipidemia Category: Medical Code(s): E78.5 - Hyperlipidemia, unspecified (4) Syncope and collapse Status: Acute Category: Medical Code(s): R55 - Syncope and collapse (5) Paroxysmal SVT (supraventricular tachycardia) Status: Acute Category: Medical Code(s): I47.1 - Supraventricular tachycardia (6) CAD (coronary artery disease) Status: Chronic Qualifiers: Coronary Disease-Associated Artery/Lesion type: [place] artery [place] vs. transplanted heart: [place] heart Associated angina: with other forms of angina Qualified Code(s): I25.118 - Atherosclerotic heart disease of [place] coronary artery with other forms of angina pectoris Category: Medical Code(s): I25.10 - Atherosclerotic heart disease of [place] coronary artery without angina pectoris (7) Misti
--- NOTE | 2020-07-22 09:59 | HMH.OTEV ---
OT Inpatient Evaluation Rehab OT IP Evaluation Start: 07/21/20 19:09 Freq: ONCE Status: Complete Protocol: Document 07/22/20 09:47 [facility] (Rec: 07/22/20 09:59 [facility] [id number]) Rehab OT IP Assessment Subjective History Pt oriented x 3 on arrival. Pt agreeable to engage in therapy evaluation. Pt was admitted via ED on 07/20/20 due to syncope episode and fall. Pt's fall resulted in a R tib /fib fx. Pt required surgery on 07/21/20 on right ankle. Pt has a past medical history of Hyperlipidemia, HTN, CAD, GERD, Depression, Anxiety, Arrhythmia, Asthma, CA, and COPD. Pt reports prior to her fall she lived in an apartment alone. Pt claims she was independent with ADLs and IADLs. However, due to weakness and shortness of breath pt explains she had to take breaks often during ADLs due to decreased endurance. Pt did not use an AE during ambulation. Subjective I am a little scared to get up. Objective Patient Orientation Person,Place,Birthday Upper Extremity Gross ROM WFL Bed Mobility bed mobility-scooting,bed mobility - supine/sit,bed mobility - rolling Assist Level Minimal x 1 (25% assist) Transfer Training Sit/Stand Transfer Assist Level Minimal x 1 (25% assist) Chair Transfer Ability Minimal x 1 (25% assist) Chair Transfer Technique Sit to/from Ambulatory Chair Transfer Assistive Devices Rolling Walker Performing Toilet Hygiene Ability Assistance X1 Overall Commode/Toilet Transfer Ability Assistance x1 Rehab OT IP prob,goals,plan Problems Date of Evaluation: 07/22/20 OT IP Problems Bed Mobility,Transfers,Gait, Balance,Self care,Safety Rehab Potential Rehab Potential Good Equipment Needs Assistive Devices Rolling / Wheeled Walker Plan OT intervention Plan Bed Mobility,Transfers,Gait, Balance,Self care,Safety, Therapeutic Exercise OT Plan Frequency Daily Duration
--- NOTE | 2020-07-22 10:14 | HMH.PTEV ---
Physical Therapy Evaluation Rehab PT IP Evaluation Start: 07/21/20 19:09 Freq: ONCE Status: Active Protocol: Document 07/22/20 10:07 [facility] (Rec: 07/22/20 10:14 [facility] [id number]) Subjective/History History History This is the initial IP PT evaluation for Betty Thrasher. Pt is a 60 y/o female admitted to [facility] after syncopal episode at home where she fell Fx'ing R ankle, Tib/ Fib. Pt had ORIF for fixation Subjective Subjective Pt rpeorts of pain in RLE, and getting hot w/ sitting eob, and bedside commode Rehab PT IP Eval Objective Appearance Patient Behavior Appropriate,Cooperative Patient Orientation Person,Place,Time Difficulty following instructions none Speech Pattern Clear,Appropriate Ambulation Patient Able to Ambulate Yes Ambulation Observation IP General Gait Pattern Observation Decrease Weight Bear (R), Decrease Stride Lngth (R) Ambulation Distance (feet) 10 Ambulation Assistive Device Rolling Walker Ambulation Ability Contact Guard/Hand Hold, Minimal x 1 (25% assist) Balance Ability to Arise Able, uses arms to help Sitting Balance Steady, safe Standing Balance Unsteady Dynamic Sitting Balance Ability Good Dynamic Standing Balance Ability Fair Transfers Bed Transfer Ability Supervision/Stand by Chair Transfer Ability Supervision/Stand by Sit to Stand Bed Transfer Ability Contact Guard/Hand Hold Sit to Stand Chair Transfer Ability Contact Guard/Hand Hold Rehab PT IP prob,goals,plan Problems Date of Evaluation: 07/22/20 PT IP Problems Transfers,Gait,Balance,Self care Rehab Potential Rehab Potential Good Equipment Needs Assistive Devices Rolling / Wheeled Walker Plan PT Intervention Plan Bed Mobility,Transfers,Gait, Balance,Self care,Safety, Therapeutic Exercise PT Plan Frequency BID Duration LOS Discharge Goals Bed Transfer Ability Contact Guard/Hand Hold Sit to Stand Chair Transfer Ability Contact Guard/Hand Hold Ambulation Assistive Device Rolling Walker Ambulation Distance (feet) 25 Discharge Plan PT Discharge Plan Pt safe to return home w/ supervision/assistance and HHPT. Pt lives alone in ap
--- NOTE | 2020-07-22 10:18 | SW/DCPLANNER ---
Addendum entered by Marisela Pacoima 07/23/20 14:16: Currently waiting to hear back from insurance precert. Nasreen with [facility] has stated they can accept this patient over the weekend as well. Addendum entered by Marisela Pacoima 07/23/20 12:20: Updated COVID (negative) has been faxed to Nasreen with [facility]. Currently waiting for insurance to complete precert at this time. Addendum entered by [facility] 07/23/20 07:11: Per Nasreen with [facility] this patient has been accepted and pre cert was started last night. Patient concurs with plan of discharging to [facility] for SNF level of care at time of discharge. Patient will not need another COVID swab if precert completed today. I will continue to follow up with MD sharif and Nasreen w/[facility]. Addendum entered by [facility] 07/22/20 14:35: Caity with [facility] has stated they can not meet this patients needs at this time. Patient is agreeable to fax information/order to [facility]. Patient stated that she is going to speak with her family this evening regarding discharge plans. Patient information has been faxed to Nasreen at [facility] at this time. I have updated César regarding plan. Patient understands that she will be medically stable for discharge soon. Addendum entered by Marisela Pacoima 07/22/20 10:59: I did discuss with patient Cardinal Kim and she is NOT interested in going to [place] at this time. I will follow up with patient once I hear back from [facility]. Original Note: I have spoke with this patient regarding discharge plans. Patient stated that she resides at home alone and was active until her accident. Patient stated that she is in a lot of pain and fears returning home and having a fall. I had discussion with patient regarding home health vs placement. PT/OT has stated that patient did well but they recommend placement if patient does not have family that can help at home. Patient stated she did not know how often her family could be involved. I discussed placement: [facility] is only facility in [facility] in network with patients insurance. Patient has agreed for me to contact [facility] regarding bed availability and to fax patient information. Caity crawford [facility] stated that she does have female beds available. Patient information has been faxed to Caity crawford [facility]. I will follow up with patient once I hear back from Caity. Patient stated while waiting to hear back from [facility] she will be speaking with her family.
--- NOTE | 2020-07-22 14:20 | HMH.ORTHPN ---
Subjective Date: 07/22/20 Time: 13:45 Principal diagnosis: Fall with right lower extremity fracture, possible syncope Interval history: Status post 1. Intramedullary nailing tibia, right 2. ORIF ankle fracture, right Patient is status post ORIF right ankle and intramedullary nailing right tibia, postop day 1. Patient is doing well and reports no problems. She says her pain is well controlled with medication. She reports some nausea and says she is not eating that well; she says she is drinking well and has not been vomiting. No history of any fevers, chills or rigors. No history of any distal tingling or numbness patient says says she has mobilized non-weight bearing on the right lower extremity with the help of walker under physical therapy supervision. PN: Obj Ex Vital signs: Temp Pulse Resp BP Pulse Ox 98.2 F 110 H 17 116/81 96 07/22/20 07:29 07/22/20 12:00 07/22/20 07:29 07/22/20 07:29 07/22/20 07:29 Narrative: Laboratory Results - last 24 hr 07/21/20 14:00: Urine Color Straw, Urine Appearance Clear, Urine pH 5.5, Ur Specific [place] 1.020, Urine Protein Negative, Urine Glucose (UA) Negative, Urine Ketones Trace, Urine Blood Negative, Urine Nitrate Negative, Urine Bilirubin Negative, Urine Urobilinogen 0.2, Ur Leukocyte Esterase Negative, Urine RBC None, Urine WBC 5-10, Ur Squamous Epith Cells 10-20, Urine Bacteria 1+ 07/22/20 00:51: POC Glucose 139 H 07/22/20 05:54: WBC 7.5 D, RBC 3.72 L, Hgb 10.3 L, Hct 31.9 L, MCV 85.8, MCH 27.7, MCHC 32.3, RDW 13.7, Plt Count 260, MPV 8.1, Neut % (Auto) 76.2, Lymph % (Auto) 15.3, [place] % (Auto) 8.4, Eos % (Auto) 0.1, Baso % (Auto) 0.1, Neut # (Auto) 5.7, Lymph # (Auto) 1.1, [place] # (Auto) 0.6, Eos # (Auto) 0.0, Baso # (Auto) 0.0 07/22/20 05:54: Sodium 139, Potassium 3.9, Chloride 108 H, Carbon Dioxide 26, Anion Gap 8.9, BUN 4 L D, Creatinine 0.60, Estimated Creat Clear 66, Estimated GFR 102, Est GFR ( Amer) 123, Glucose 137 H, Calcium 8.6 Exam General appearance: alert, active, awake, no acute distress Cardiovascular: regular rate & rhythm, normal peripheral pulses Respiratory: No respiratory distress noted, speaks in full sentences ABD: soft and non-tender Neuro: alert, awake, oriented x 3 Psych: Appropriate mood and affect On examination of the right lower extremity, the surgical dressings and short-leg posterior splint are in place and is fitting well. No soakage or strikethrough noted. Patient demonstrates good range of active and passive toe movements. Capillary refill is brisk. Sensation intact to light touch throughout. No stretch pain or other signs of compartment syndrome are noted. - Urinary Catheter Management Donovan Cath placed during this visit: no Progress Note: A&P (1) Tibia/fibula fracture Status: Acute (2) Chronic pain disorder Status: Acute (3) Hyperlipidemia Status: Chronic (4) Syncope and collapse Status: Acute (5) Paroxysmal SVT (supraventricular tachycardia) Status: Acute (6) CAD (coronary artery disease) Status: Chronic (7) Heart palpitations Status: Acute (8) Syncope Status: Chronic (9) HTN (hypertension) Status: Chronic (10) Anemia Status: Acute (11) Osteopenia Status: Acute Assessment and Plan for All Diagnoses:: I have again reviewed the surgical findings and procedure performed with the patient. Overall she is doing well and the pain is well controlled with as needed medication. Encouraged patient to continue elevation of the right lower extremity and actively mobilize the toes. Continue elevation, regular icing, non-weight bearing mobilization and as needed pain medication. Patient has history of syncopal attacks and cardiology is on consult. Patient can be discharged from an orthopedic standpoint. Follow-up in my office in 1 week's time. Care management looking into discharge planning. Continue medical management as per Dr. Kellogg.
--- NOTE | 2020-07-22 15:21 | PC.NURSE ---
SHE IS AOX4, ABLE TO MAKE NEEDS KNOWN TO STAFF, PARTICIPATED WITH PT THIS AFTERNOON, HAS BEEN TRANSFERRING TO B[facility] WITH 2 ASSIST T/O SHIFT, SHE WAS MEDICATED WITH PRN NORCO X2 WITH GOOD EFFECTIVENESS. SHE HAS NOT REQUIRED O2 SUPPORT, HAS NOT HAD MUCH OF AN APPETITE, IV FLUIDS HAVE BEEN D/C PER DR TELLES. SHE IS ABLE TO MOVE HER TOES DISTAL TO HER DSG AND SENSATION IS INTACT, NO NEEDS AT THIS TIME.
--- NOTE | 2020-07-22 21:39 | PC.NURSE ---
assisted pt up to bsc.pt did well.300ml of yellow urine noted,polor pack reapplied to right lower leg
[2020-07-23] VITALS (7 sets, daily range): BP systolic 92–135; BP diastolic 64–81; PULSE 80–100; RESP 18–20; TEMP 36.2–37; O2SAT 95–99; BMI 28.4
--- NOTE | 2020-07-23 05:24 | PC.NURSE ---
pt has had no acute changes. uses BSC with walker and assist. non-weightbearing to left leg. new iv placed this shift. no pain reported this shift. polar pack is applied and leg is elevated. cap refill less than 3 seconds. able to move toes and denies any tingling. vss. call light in reach. will continue to monitor.
--- NOTE | 2020-07-23 08:54 | HMH.DCSUM ---
General - General Admission date:: 07/21/20 Discharge date: 07/23/20 HPI HPI: 60-year-old female patient reports she became dizzy, blacked out and fell. Upon awakening she was unable to get up she was delivered to [facility] emergency department with reports of right lower leg pain. She reports she has had syncopal exposures in the past last one being last month. She does have a loop recorder and reports the batteries have and need to be replaced. She denies any seizures or incontinence and she does have a pain pump for chronic pain issues. Ortho was made aware of patient last night and will see this morning, cardiology has been consulted and will see this morning also. She does have a history of hypertension, CAD, arrhythmia, anxiety, thyroid disease, and chronic pain Right leg lower extremity x-ray showing (fx tib/fib) All other x-rays and CT scans are pending final reading The emergency department lab work was unremarkable, troponins negative x3 In the emergency department pain was managed with morphine IV and she received 1 L of normal saline 60-year-old female lying in bed she reports her pain is under control, vital signs are stable oxygenation is 93% on room air She is n.p.o. and cleared for surgery from a medical standpoint, awaiting cardiology input Hospital Course Hospital Course: Laboratory Tests 07/20/20 07/20/20 07/21/20 22:55 22:55 02:08 WBC 5.7 RBC 4.41 Hgb 12.4 Hct 38.9 MCV 88.3 MCH 28.2 MCHC 31.9 RDW 13.7 Plt Count 287 MPV 8.1 Neut % (Auto) 59.9 Lymph % (Auto) 30.8 [place] % (Auto) 7.5 Eos % (Auto) 1.4 Baso % (Auto) 0.4 Neut # (Auto) 3.4 Lymph # (Auto) 1.8 [place] # (Auto) 0.4 Eos # (Auto) 0.1 Baso # (Auto) 0.0 Sodium 139 Potassium 3.6 Chloride 108 H Carbon Dioxide 27 Anion Gap 7.6 BUN 7 Creatinine 0.70 Estimated Creat Clear 63 Estimated GFR 85 Est GFR ( Amer) 103 Glucose 102 H POC Glucose Calcium 8.5 Total Bilirubin 0.5 Direct Bilirubin 0.0 Conjugated Bilirubin 0.0 Indirect Bilirubin 0.5 Unconjugated Bilirubin 0.5 AST 23 ALT 12 Alkaline Phosphatase 67 Troponin I < 0.01 < 0.01 Total Protein 6.7 Albumin 3.4 L Urine Color Urine Appearance Urine pH Ur Specific [place] Urine Protein Urine Glucose (UA) Urine Ketones Urine Blood Urine Nitrate Urine Bilirubin Urine Urobilinogen Ur Leukocyte Esterase Urine RBC Urine WBC Ur Squamous Epith Cells Urine Bacteria Chlamy pneumoniae PCR Adenovirus (PCR) B. pertussis DNA (PCR) Coronavirus OC43 (PCR) Coronavirus HKU1 (PCR) Coronavirus 229E (PCR) SARS-CoV-2 (PCR) Coronavirus NL63 (PCR) Human Metapneumovir PCR Influenza A (H1) PCR Influ A (H1N1/09) PCR Influenza A (H3) PCR Influenza Type A (PCR) Influenza Type B (PCR) M. pneumoniae (PCR) Parainfluenza 1 (PCR) Parainfluenza 2 (PCR) Parainfluenza 3 (PCR) Parainfluenza 4 (PCR) RSV (PCR) Entero/Rhino (PCR) 07/21/20 07/21/20 07/21/20 05:15 14:00 23:00 WBC RBC Hgb Hct MCV MCH MCHC RDW Plt Count MPV Neut % (Auto) Lymph % (Auto) [place] % (Auto) Eos % (Auto) Baso % (Auto) Neut # (Auto) Lymph # (Auto) [place] # (Auto) Eos # (Auto) Baso # (Auto) Sodium Potassium Chloride Carbon Dioxide Anion Gap BUN Creatinine Estimated Creat Clear Estimated GFR Est GFR ( Amer) Glucose POC Glucose Calcium Total Bilirubin Direct Bilirubin Conjugated Bilirubin Indirect Bilirubin Unconjugated Bilirubin AST ALT Alkaline Phosphatase Troponin I < 0.01 Total Protein Albumin Urine Color Straw Urine Appearance Clear Urine pH 5.5 Ur Specific [place]
[2020-07-23 09:47] LABS: Adenovirus,PCR Not Detected (NotDetected); Bordetella Pertussis Not Detected (NotDetected); Chlamydophila Pneumoniae, PCR Not Detected (NotDetected); Coronavirus 19, PCR Not Detected (NotDetected); Coronavirus 229E Not Detected (NotDetected); Coronavirus NL63 Not Detected (NotDetected); Coronavirus OC43 Not Detected (NotDetected); Coronovirus HKU1,PCR Not Detected (NotDetected); Human Metapneumovirus Not Detected (NotDetected); Influenza A, PCR Not Detected (NotDetected); Influenza AH1, 2009 Not Detected (NotDetected); Influenza AH1, PCR Not Detected (NotDetected); Influenza AH3,PCR Not Detected (NotDetected); Influenza B, PCR Not Detected (NotDetected); Mycoplasma Pneumoniae, PCR Not Detected (NotDetected); Parainfluenza 1, PCR Not Detected (NotDetected); Parainfluenza 2, PCR Not Detected (NotDetected); Parainfluenza 3, PCR Not Detected (NotDetected); Parainfluenza 4, PCR Not Detected (NotDetected); Respiratory Syncytial Virus Not Detected (NotDetected); Rhinovirus/Enterovirus Not Detected (NotDetected)
== END 2020-07-23 16:18 ==
LOC: ER 22:49 → 2ND 07-21 00:53
PROVIDERS: Orthopaedic Surgery; Admitting Provider Emergency Medicine; Emergency Provider Emergency Medicine; PCP Physician Assistant; Visit Provider Emergency Medicine
PROC: 0QSJ06Z Reposition Right Fibula with Intramedullary Internal Fixation Device, Open Approach (ICD-10-PCS; CPT 27759; principal; 2020-07-21 13:00)
DX: S82.241A Displaced spiral fracture of shaft of right tibia, initial encounter for closed fracture (principal); S82.61XA Displaced fracture of lateral malleolus of right fibula, initial encounter for closed fracture; W01.0XXA Fall on same level from slipping, tripping and stumbling without subsequent striking against object, initial encounter; Y92.019 Unspecified place in single-family (private) house as the place of occurrence of the external cause; I10 Essential (primary) hypertension; I47.1 Supraventricular tachycardia; I25.10 Atherosclerotic heart disease of native coronary artery without angina pectoris; E03.9 Hypothyroidism, unspecified; J44.9 Chronic obstructive pulmonary disease, unspecified; R55 Syncope and collapse; Z79.890 Hormone replacement therapy; Z79.51 Long term (current) use of inhaled steroids; Z79.82 Long term (current) use of aspirin; Z79.899 Other long term (current) drug therapy; Z95.818 Presence of other cardiac implants and grafts; Z99.89 Dependence on other enabling machines and devices
CPT/HCPCS: 27759; 27792; 36415; 70450; 71045; 72125; 72170; 73590; 73600; 80048; 80076; 81001; 82962; 84484; 85025; 87581; 87633; 87798; 93005; 93306; 93880; 96365; 96375; 97161; 97166; 97530; 99284; C1713; C1769; C1776; G0378; J2405; J3370

== ENCOUNTER 2020-08-01 03:06 | Inpatient (IN) | payer MEDICARE, MEDICAID, SELFPAY ==
[2020-08-01] VITALS (12 sets, daily range): BP systolic 72–125; BP diastolic 50–79; PULSE 80–179; RESP 17–28; TEMP 36.2–37.7; O2SAT 82–98; BMI 25.8; BMI 28.4
--- NOTE | 2020-08-01 03:09 | CT_ITS ---
PROCEDURE: CT ANGIO CHEST CLINCIAL INDICATION: pe Severe shortness of air COMPARISON: CT AGCHEST CT angio chest from 02/03/[address] ABDOMEN WO/W CON from 01/13/2020 TECHNIQUE: IV Contrast: 70ML Isovue 370 Axial images obtained with sagittal and coronal reformats. All CT scans at the facility use one or more dose reduction, viz: automated exposure control, ma/kV adjustment per patient size (including targeted exams where dose is matched to indication, i.e. head), or iterative reconstruction technique. FINDINGS: No evidence of pulmonary embolus, aortic aneurysm, or aortic dissection. There is fluid present within the esophagus with mild distention of the esophagus. There is dense consolidation in the left lower lobe patchy areas of consolidation in the right upper lobe and right lower lobe consistent with bilateral pneumonia. No effusions. No cavitation. No acute bony findings. There are multiple enhancing foci within the liver as previously described consistent with hemangiomas. There is gastric distension and a small hiatal hernia.. IMPRESSION: 1. No evidence of pulmonary embolus. 2. Bilateral pneumonia possibly related to aspiration. 3. Hiatal hernia with fluid-filled esophagus consistent with reflux with gastric distention also noted 4. Multiple enhancing lesions of the liver suggesting hemangiomas Dictated by: Diego Kowalski MD 08/01/2020 08:16 Diego Kowalski MD in [place] 08/01/2020 08:16
--- NOTE | 2020-08-01 03:16 | HMH.EDGENADL ---
ED Disposition Clinical Impression: Pneumonia Qualifiers: Pneumonia type: aspiration pneumonia Aspiration pneumonia type: unspecified Laterality: bilateral Lung location: lower lobe of lung Qualified Code(s): J69.0 - Pneumonitis due to inhalation of food and vomit Disposition: Admitted As Inpatient Condition on Discharge: Good - Critical Care Critical Care Time: No Attestation: On , the high probability of a clinically significant, sudden or life threatening deterioration of the following system(s) required my full and direct attention, intervention and personal management. The time I documented below is in addition to time spent performing reported procedures but includes the following listed in this critical care notation. Medical Decision Making - Medical Records Medical records reviewed: Yes: I reviewed the patient's medical records. - Daniele Inquiry Pt receiving controlled substance: No Vital Signs: 08/01/20 03:06 08/01/20 03:09 Temperature 97.1 F L Temperature Source Oral Pulse Rate [Right Brachial] 179 H 118 H Respiratory Rate 28 H 24 Blood Pressure [Right Arm] 110/77 94/62 L Blood Pressure Mean [Right Arm] 88 72 Blood Pressure Source [Right Arm] Automatic Cuff Automatic Cuff Blood Pressure Position [Right Arm] Sitting Sitting 02 Sat by Pulse Oximetry 82 L 82 L Oxygen Delivery Method Room Air Room Air - Lab Data Lab results reviewed: Yes: I reviewed the patient's lab results. Lab Results 08/01/20 03:05: WBC 3.3 L, RBC 3.78 L, Hgb 10.2 L, Hct 33.4 L, MCV 88.5, MCH 27.1, MCHC 30.6 L, RDW 13.9, Plt Count 556 H, MPV 8.2, Neut % (Auto) 73.9, Lymph % (Auto) 23.3, [place] % (Auto) 1.7, Eos % (Auto) 0.7, Baso % (Auto) 0.3, Neut # (Auto) 2.4, Lymph # (Auto) 0.8, [place] # (Auto) 0.1, Eos # (Auto) 0.0, Baso # (Auto) 0.0 08/01/20 03:05: PT 10.6, INR 0.89 L, APTT 21.9 L 08/01/20 03:05: Sodium 145, Potassium 3.2 L, Chloride 112 H, Carbon Dioxide 20 L, Anion Gap 16.2 H, BUN 12, Creatinine 0.70, Estimated Creat Clear 62, Estimated GFR 85, Est GFR ( Amer) 103, Glucose 141 H, Calcium 9.5, Total Bilirubin 0.6, AST 32, ALT 18, Alkaline Phosphatase 92, Troponin I 0.07 H, NT-Pro-B Natriuret Pep 678 H, Total Protein 6.9, Albumin 3.4 L, Globulin 3.5 H, Albumin/Globulin Ratio 1.0 L Result diagrams: 08/01/20 03:05 08/01/20 03:05 Orders (Tests/Meds): ED MEDICATIONS Generic Name Dose Route Start Last Admin Trade Name Freq PRN Reason Stop Dose Admin Azithromycin 500 mg/ Sodium 250 mls @ 250 mls/hr 08/01/20 04:00 Chloride IV 08/15/20 03:59 Q24H PRITI Protocol Piperacillin Sod/Tazobactam 100 mls @ 200 mls/hr 08/01/20 04:00 Sod 4.5 gm/ Sodium Chloride IV 08/15/20 03:59 Q6H PRITI Protocol Lactated Ringer's 2,000 mls @ 999 mls/hr 08/01/20 04:00 Lactated Ringer's 1000 Ml Bag IV 08/01/20 06:00 .Q2H1M PRITI Metoprolol Tartrate 5 mg 08/01/20 03:16 Metoprolol Tartrate 5mg/5ml Vial IV 08/31/20 03:15 BIDP PRN Cardiac Arrhythmia Miscellaneous 1 each 08/01/20 04:00 Vancomycin Consult Request * 08/31/20 03:59 CONSULT PHARMACY PRITI Discontinued Medications Generic Name Dose Route Start Last Admin Trade Name Freq PRN Reason Stop Dose Admin Iopamidol 70 ml 08/01/20 03:51 08/01/20 03:53 Iopamidol-370 (76%);100ml Bottle IV 08/01/20 03:52 70 ml ONCE ONE Administration Sodium Chloride 10 ml 08/01/20 03:51 08/01/20 03:53 Sodium Chloride 0.9% 10ml Syr (Rad Only) IV 08/01/20 03:52 10 ml ONCE ONE Administration Sodium Chloride 100 ml 08/01/20 03:51 08/01/20 03:53 Rad-Sodium Chloride 0.9% 250ml Bag IV 08/01/20 03:52 100 ml ONCE ONE Administration ORDERS Category Date Time Status CT Chest w/PE protocol [CT angio chest] Stat Cat Scan 08/01/20 03:09 Ordered Full Resp Panel w/COVID ([facility]) Routine Lab 08/01/20 03:15 Received Troponin I Q3H Lab 08/01/20 06:15 Ordered Troponin I Q3H Lab 08/01/20 09:15 Ordered ABG [Arterial Bl
--- NOTE | 2020-08-01 03:17 | PC.NURSE ---
to ct for pe scan at this time via stretcher
[2020-08-01 03:22] LABS: Adenovirus,PCR Not Detected (NotDetected); Bordetella Pertussis Not Detected (NotDetected); Chlamydophila Pneumoniae, PCR Not Detected (NotDetected); Coronavirus 19, PCR Not Detected (NotDetected); Coronavirus 229E Not Detected (NotDetected); Coronavirus NL63 Not Detected (NotDetected); Coronavirus OC43 Not Detected (NotDetected); Coronovirus HKU1,PCR Not Detected (NotDetected); Human Metapneumovirus Not Detected (NotDetected); Influenza A, PCR Not Detected (NotDetected); Influenza AH1, 2009 Not Detected (NotDetected); Influenza AH1, PCR Not Detected (NotDetected); Influenza AH3,PCR Not Detected (NotDetected); Influenza B, PCR Not Detected (NotDetected); Mycoplasma Pneumoniae, PCR Not Detected (NotDetected); Parainfluenza 1, PCR Not Detected (NotDetected); Parainfluenza 2, PCR Not Detected (NotDetected); Parainfluenza 3, PCR Not Detected (NotDetected); Parainfluenza 4, PCR Not Detected (NotDetected); Respiratory Syncytial Virus Not Detected (NotDetected); Rhinovirus/Enterovirus Not Detected (NotDetected)
[2020-08-01 03:24] LABS: Basophils % 0.3 % (0.1-2.0); Eosinophils % 0.7 % (0.1-12.0); Hematocrit 33.4 % (37.0-47.0); Hemoglobin 10.2 g/dL (12.2-16.2); Lymphocytes # 0.8 K/mm3 (0.7-4.5); Lymphocytes % 23.3 % (10-50); Mean Corpuscular HGB Conc 30.6 g/dL (31.8-35.4); Mean Corpuscular Hemoglobin 27.1 pg (27.0-31.2); Mean Corpuscular Volume 88.5 fl (81-99); Mean Platelet Volume 8.2 fl (7.4-10.4); Monocytes # 0.1 K/mm3 (0.1-1.0); Monocytes % 1.7 % (1.7-9.3); Neutrophils # 2.4 K/mm3 (1.8-7.8); Neutrophils % 73.9 % (37.0-80.0); Platelet Count 556 K/mm3 (142-424); Red Blood Count 3.78 M/mm3 (4.20-5.40); Red Cell Distribution Width 13.9 % (11.5-17.5); White Blood Count 3.3 K/mm3 (4.8-10.8)
--- NOTE | 2020-08-01 03:30 | ECG_ITS ---
APPROVED REPORT Exam: Resting ECG HR:118 bpm ECG Measurements Heart Rate 118 AXES QRSd 84 QRS 0 QT 422 T 76 QTc 591 Conclusion Accelerated Junctional rhythm Nonspecific ST and T wave abnormality Abnormal ECG Electronically signed by : Benny Goldman, 08/01/2020 11:44:14
[2020-08-01 03:34] LABS: Alanine Aminotransferase 18 U/L (12-78); Albumin Level 3.4 g/dl (3.5-5.0); Alkaline Phosphatase 92 U/L (38-126); Anion Gap 16.2 mEq/L (5-15); Aspartate Amino Transferase 32 U/L (14-36); Bilirubin,Total 0.6 mg/dl (0.2-1.3); Blood Urea Nitrogen 12 mg/dl (7-17); Calcium 9.5 mg/dl (8.4-10.2); Carbon Dioxide 20 mmol/L (22.0-30.0); Chloride 112 mmol/L (98-107); Creatinine Clearance Estimated 62 mL/min (50-200); Estimated Glomerular Filt Rate 85 ml/min (>60); GFR (African American) 103 ML/MIN (>60); Globulin 3.5 g/dL (1.3-3.2); Glucose 141 mg/dl (74-100); Potassium 3.2 mmoL/L (3.5-5.1); Sodium 145 mmol/L (136-145); Total Protein,Serum 6.9 g/dl (6.3-8.2)
[2020-08-01 03:46] LABS: NT Pro Brain Natriuretic Pep. 678 pg/mL (0-125); Troponin I 0.07 ng/ml (0.00-0.034)
[2020-08-01 03:47] LABS: Activated Partial Thrombo Time 21.9 seconds (23.6-34.0); INR 0.89 (0.9-1.1); Prothrombin Time 10.6 seconds (9.4-11.8)
--- NOTE | 2020-08-01 03:58 | PC.NURSE ---
Spoke with GilbertPharmacist consulting sales executive in regards to Vanc dosing. Orders for 1250mg Vanc IV Q12H.
[2020-08-01 04:00] LABS: ABG Base Excess -4.2 mmol/L (-2.4-2.3); ABG HCO3 20.3 mmhg (22.0-26.0); ABG Oxygen Saturation 96 % (90-100); ABG PCO2 32.3 mmhg (35.0-45.0); ABG PH 7.42 mmol/L (7.35-7.45); ABG PO2 83.7 mmhg (80-100); ABG TCO2 21.3 mmhg (23-27)
[2020-08-01 04:01] LABS: Allen's Test Y; Oxygen 100 %; Source R/R
--- NOTE | 2020-08-01 04:45 | PC.NURSE ---
attempted to initiate atb's, noted cultures and lactic hadn't been collected. spoke with dedra in lab, he states they do not have. confirmed with other staff that no one had obtained. obtained cultures and lactic by cy wiggins-then atb's initiated
[2020-08-01 05:21] LABS: Lactic Acid 3.6 mmol/L (0.7-2.1)
--- NOTE | 2020-08-01 06:28 | PC.NURSE ---
PT ARRIVED TO FLOOR VIA W/C FROM ED WITH STAFF AT 1881
[2020-08-01 08:11] LABS: Troponin I 0.18 ng/ml (0.00-0.034)
[2020-08-01 09:08] LABS: Reflex Lactic Add Lactic Reflex
--- NOTE | 2020-08-01 09:09 | HMH.PHACONS ---
- Pharmacy Consult Date: 08/01/20 Time: 09:09 Referring provider: DR. NIETO Reason for Consult:: VANCOMYCIN DOSING Allergies and ADEs:: Allergies Allergy/AdvReac Type Severity Reaction Status Date / Time captopril Allergy Mild Hives Verified 07/21/20 03:22 Home Medications:: Home Medications Medication Instructions Recorded Confirmed Type Aspirin [Low Dose Aspirin EC] 81 mg PO DAILY 09/22/19 08/01/20 History Linaclotide [Linzess] 72 mcg PO DAILY 11/03/19 08/01/20 History omeprazole 40 mg capsule,delayed 40 mg PO DAILY #90 cap 01/12/20 08/01/20 Rx release morphine 1 mg/mL (1 mL) in 0.9 % 0.9 mg CONTINUOUS IV INFUSION 06/02/20 08/01/20 History sodium chloride intravenous syringe DAILY ml metoprolol succinate 50 mg 50 mg PO HS tab 07/12/20 08/01/20 History tablet,extended release 24 hr rosuvastatin 10 mg tablet 10 mg PO DAILY tab 07/12/20 08/01/20 History Duloxetine HCl [Cymbalta] 60 mg PO DAILY 07/21/20 08/01/20 History Levothyroxine Sodium 50 mcg PO DAILY 07/21/20 08/01/20 History [Levothyroxine 50mcg (0.05mg) Tab] Quetiapine Fumarate 200 mg PO HS 07/21/20 08/01/20 History estradioL [Estradiol] 1 mg PO DAILY 07/21/20 08/01/20 History lorazepam 0.5 mg tablet 0.5 mg PO BID PRN #60 tab 07/26/20 08/01/20 Rx pregabalin 150 mg capsule 150 mg PO BID #60 cap 07/26/20 08/01/20 Rx Height: 1.6 m Weight: 72.773 kg Laboratory Results:: Laboratory Results - last 24 hr 08/01/20 03:05: WBC 3.3 L, RBC 3.78 L, Hgb 10.2 L, Hct 33.4 L, MCV 88.5, MCH 27.1, MCHC 30.6 L, RDW 13.9, Plt Count 556 H, MPV 8.2, Neut % (Auto) 73.9, Lymph % (Auto) 23.3, [place] % (Auto) 1.7, Eos % (Auto) 0.7, Baso % (Auto) 0.3, Neut # (Auto) 2.4, Lymph # (Auto) 0.8, [place] # (Auto) 0.1, Eos # (Auto) 0.0, Baso # (Auto) 0.0 08/01/20 03:05: PT 10.6, INR 0.89 L, APTT 21.9 L 08/01/20 03:05: Sodium 145, Potassium 3.2 L, Chloride 112 H, Carbon Dioxide 20 L, Anion Gap 16.2 H, BUN 12, Creatinine 0.70, Estimated Creat Clear 62, Estimated GFR 85, Est GFR ( Amer) 103, Glucose 141 H, Calcium 9.5, Total Bilirubin 0.6, AST 32, ALT 18, Alkaline Phosphatase 92, Troponin I 0.07 H, NT-Pro-B Natriuret Pep 678 H, Total Protein 6.9, Albumin 3.4 L, Globulin 3.5 H, Albumin/Globulin Ratio 1.0 L 08/01/20 03:15: Chlamy pneumoniae PCR Not detected, Adenovirus (PCR) Not detected, B. pertussis DNA (PCR) Not detected, Coronavirus OC43 (PCR) Not detected, Coronavirus HKU1 (PCR) Not detected, Coronavirus 229E (PCR) Not detected, SARS-CoV-2 (PCR) Not detected, Coronavirus NL63 (PCR) Not detected, Human Metapneumovir PCR Not detected, Influenza A (H1) PCR Not detected, Influ A (H1N1/09) PCR Not detected, Influenza A (H3) PCR Not detected, Influenza Type A (PCR) Not detected, Influenza Type B (PCR) Not detected, M. pneumoniae (PCR) Not detected, Parainfluenza 1 (PCR) Not detected, Parainfluenza 2 (PCR) Not detected, Parainfluenza 3 (PCR) Not detected, Parainfluenza 4 (PCR) Not detected, RSV (PCR) Not detected, Entero/Rhino (PCR) Not detected 08/01/20 03:59: Specimen Source R/r, O2 % 100, ABG pH 7.42, ABG pCO2 32.3 L, ABG pO2 83.7, ABG HCO3 20.3 L, ABG Total CO2 21.3 L, ABG O2 Saturation 96, ABG Base Excess -4.2 L, Diego Test Y 08/01/20 04:45: Lactate 3.6 H 08/01/20 07:11: Troponin I 0.18 H Medical History: Reports:: Anxiety, Arrhythmia, Asthma, Chronic Obstructive Pulmonary Disease (COPD), Coronary Artery Disease, Depression, Gastroesophageal Reflux Disease(GERD), Hyperlipidemia, Hypertension, Migraine, Palpitations Denies:: Cancer, Diabetes Mellitus Type 1, Diabetes Mellitus Type 2, Internal Pacemaker, MRSA, Seizures Assessment and Plan - Assessment and plan all Dx Assessment and Plan for all problems:: Age: 60 yo Serum creatinine: 0.7 mg/dL Height: 63.0 Inches Weight (kg): 73 Assessment: IBW (kg): 52.40 Dosing wt(kg): 73 Estimated Creatinine clearance (ml/min): 69.8 CRCL method: Cockcroft and Gault using ibw(default). Drug selected: Van
[2020-08-01 09:33] LABS: Lactic Acid Follow Up (RFLX 1) 2.2 mmol/L (0.7-2.1)
[2020-08-01 09:45] LABS: Troponin I 0.16 ng/ml (0.00-0.034)
[2020-08-01 11:13] LABS: Reflex Lactic (2 hrs) Add Lactic Reflex
[2020-08-01 11:38] LABS: Lactic Acid Follow up (RFLX 2) 1.7 mmol/L (0.7-2.1)
--- NOTE | 2020-08-01 11:55 | PC.NURSE ---
per dr short verified with pharmacy that clindamycin was normally ordered for aspiration pneumonia, they stated it was and would place order per md.
--- NOTE | 2020-08-01 12:01 | HMH.HP ---
*Admission Date: 08/01/20 *Chief complaint: pneumonia with sepsis *History of present illness: Presents for shortness of breath. 60-year-old female presenting for shortness of breath. Patient has past medical history of COPD, not smoker, patient had a recent tib-fib fracture and has been in rehab, patient states she has not been on any blood thinners recently. No history of PE or DVT. Patient presents for sudden onset chest pain and shortness of breath that woke her up from sleep, patient called EMS and was brought here for further work-up. Per EMS on their arrival patient was satting 80% on room air, patient states that she was doing okay in rehab for the past several days up until now. Patient denies any abdominal pain, nausea, vomiting, fever, chills. Patient a recent Covid test that was negative On arrival 60-year-old female presenting for shortness of breath. Patient on arrival had vital signs are significant for tachycardia and hypoxemia, patient tachycardic to 180, hypoxemic to 80. Patient was started on nonrebreather, EKG was obtained, appears to be supraventricular tachycardia, unable to certain if P waves are present patient on metoprolol at home therefore patient is given 5 mg of metoprolol, this demonstrated improvement in heart rate, repeat EKG does demonstrate sinus tachycardia, bedside ultrasound was performed, difficult to have good windows, ejection fraction grossly looks adequate. Patient had CT PE ordered as she is high risk for pulmonary embolism, did recently have immobilization of the right lower extremity. Patient is not having any fever or other symptoms. Patient was emergently taken to CT scanner for CT PE, this did not demonstrate a PE but did demonstrate bilateral lower lobe opacities consistent with pneumonia. This could be aspiration versus hospital-acquired, patient was tried on vancomycin azithro and Zosyn for coverage. B work largely nonactionable, D-dimer elevated, with a slightly decreased white blood cell count, this could be in the setting of infection such as coronavirus 19. Swab was sent, case discussed with medicine who agreed to admit the patient for further work-up patient was given 2 L bolus of lactated Ringer's here. Cap refill was improved and stable on repeat assessment Above is from ER narrative Elements of sepsis include elevated RR, tachycardia,low WBC, and elevated lactate. S/p orif tib-fib fracture right, prolonged immobility. Dr Orta cared for her. Was rehabbing at [facility]. Cannot relay an aspiration event. Suffers from depression historically, demonstrates a flat affect today. [facility] History Medical History: Reports:: Anxiety, Arrhythmia, Asthma, Chronic Obstructive Pulmonary Disease (COPD), Coronary Artery Disease, Depression, Gastroesophageal Reflux Disease(GERD), Hyperlipidemia, Hypertension, Migraine, Palpitations Denies:: Cancer, Diabetes Mellitus Type 1, Diabetes Mellitus Type 2, Internal Pacemaker, MRSA, Seizures *Have you ever received a pneumonia vaccine?: Yes *Have you received a flu vaccine this season?: Yes Other Medical History: Reports: Arthritis, Fibromyalgia, Hormone Therapy, Hypothyroidism, Liver Disease, Thyroid Disease, Other. Denies: Blood Transfusion Reaction Other Surgeries: Yes: No Previous Surgery, Appendectomy, BSO, Cardiac Catheterization, Cholecystectomy, Colonoscopy, , EGD, Hysterectomy-Total, Thyroidectomy. No: Pacemaker. Comment Only: Other (loop recorder insertion) Amputation: No Fractures: Yes (2018- FX. LEFT ANKLE) - *Social History Smoking Status: Never smoker Alcohol Intake: current Alcohol Intake Frequency:: holidays/special occasions only Substance Use Type: denies use *Occupational Status:: disabled Housing: apartment Household Members: none *Travel in the last 8 weeks: None - Psychiatric History Pschychiatric History:: Reports:: Anxiety, Depression Family Hx:: Cancer, Coronary Artery Disease, Diabetes, Heart Attack, Hyperlipidemia
--- NOTE | 2020-08-01 12:51 | PC.NURSE ---
contacted dr. hughes, and call returned
[2020-08-01 13:06] LABS: Magnesium 1.4 mg/dl (1.6-2.3)
--- NOTE | 2020-08-01 13:06 | PC.NURSE ---
paged ortho senior construction project manager. ronal called back
[2020-08-01 13:37] LABS: Thyroid Stimulating Hormone 0.44 uIU/mL (0.465-4.68)
--- NOTE | 2020-08-01 14:15 | P.CONPHA_ITS ---
[facility] Pharmacy VTE Monitoring - Patient Demographics Admission date: 08/01/20 Report Date: 08/01/20 Time: 14:15 Allergies/Adverse Reactions: Patient Allergies captopril Allergy (Mild, Verified 07/21/20 03:22) Hives Height: 1.6 m Weight: 72.773 kg Patient Problems: Current Active Problems (Last Reviewed 08/20/17 @ 15:21 by Ray Kahn) Pneumonia (Acute) Sepsis (Acute) Dyspnea (Acute) Tachycardia (Acute) HTN (hypertension) (Chronic) THAI (obstructive sleep apnea) (Chronic) Lumbar facet arthropathy (Acute) Sinus tachycardia (Acute) SOB (shortness of breath) (Acute) Hypothyroidism (Chronic) GERD (gastroesophageal reflux disease) (Chronic) - VTE Risk Labs: VTE Related Lab Results Hgb 10.2 g/dL (12.2-16.2) L 08/01/20 03:05 Hct 33.4 % (37.0-47.0) L 08/01/20 03:05 Plt Count 556 K/mm3 (142-424) H 08/01/20 03:05 PT 10.6 seconds (9.4-11.8) 08/01/20 03:05 INR 0.89 (0.9-1.1) L 08/01/20 03:05 APTT 21.9 seconds (23.6-34.0) L 08/01/20 03:05 BUN 12 mg/dl (7-17) 08/01/20 03:05 Creatinine 0.70 mg/dl (0.52-1.04) 08/01/20 03:05 Estimated Creat Clear 62 mL/min (50-200) 08/01/20 03:05 - Prophylaxis Types of VTE Prophylaxis: Pharmacological Location of Applied Device: Not Applicable Pharmacologic Type: Enoxaparin (LOVENOX ORDERED)
--- NOTE | 2020-08-01 14:57 | PC.NURSE ---
dr villeda had been called about consult for follow up on dr doran patient. she stated to take dressing off and assess what was under, take images to put on chart. area appeared warm and dry. area cleaned and dressing replaced as it was. xeroform placed on stitches, wrapped back in soft roll, braces and maia bandages. no drainage noted
--- NOTE | 2020-08-01 16:04 | PC.NURSE ---
patient done well this shift. minimal complaints. assistance to and from bathroom. tolerating drinks/food okay no signs of aspirating it. rings out as needed. alert and oriented. vitals stable.
--- NOTE | 2020-08-01 17:08 | PC.WOUNDNOTE ---
Addendum entered by Marisela Briggs RN 08/01/20 17:10: edited to correct it is the right knee Original Note: Wound Location: l knee from tib fib surgery. Thin Amount: None Scant Small Moderate Large Odor Y/N:
--- NOTE | 2020-08-01 17:09 | PC.WOUNDNOTE ---
Wound Location: r knee inner ankle from tib fib surgery
--- NOTE | 2020-08-01 17:10 | PC.WOUNDNOTE ---
Wound Location: r outer ankle from tib fib surgery
--- NOTE | 2020-08-01 17:36 | PC.NURSE ---
spoke with md induction coordination power engineer about patient. relayed that patient came in for aspiration pneumonia and triggered septic around 4 am so is out of window of initial hypotension. however bp has gradually seemed to decrease. current one 72/50. she is completely alert oriented sitting up and eating so is stable. patient also received metoprolol because heart rate was elevated at 120s but is currently 90-110 since receiving metoprolol. md stated to give patient a 1 liter ns bolus over two hours and see how her bp responds.
[2020-08-02] VITALS (25 sets, daily range): BP systolic 75–141; BP diastolic 45–93; PULSE 72–100; RESP 14–18; TEMP 36.5–37.1; O2SAT 94–99; BMI 29.8
--- NOTE | 2020-08-02 03:49 | PC.NURSE ---
No acute changes. Pt has slept at intervals this shift. VSS. Remains on RA. No fever this shift. Crackles noted to lung bases. No c/o soa. DSG intact to RLE. Medications administered per aug. Call light within reach. No acute changes at this time. Will continue to monitor.
--- NOTE | 2020-08-02 06:00 | XR_ITS ---
PROCEDURE: XR CHEST PORTABLE CLINICAL HISTORY: pneumonia Follow-up pneumonia COMPARISON: DX XR CHEST 2V from 11/03/2019 CR XR CHEST PORTABLE from 01/05/2020 CR XR CHEST PORTABLE from 07/20/[address] ANGIO CHEST from 08/01/2020 FINDINGS: The cardiomediastinal silhouette and pulmonary vascularity are within normal limits. There is consolidation in the left lower lobe in the retrocardiac region. Patchy atelectasis or infiltrate also noted in the right lung base medially. Upper lobes are clear. Loop recorder device is in place. No acute bony abnormalities. IMPRESSION: Bilateral pneumonia left more extensive than right. Dictated by: Diego Kowalski MD 08/02/2020 06:01 Diego Kowalski MD in [place] 08/02/2020 06:01
[2020-08-02 06:35] LABS: MANUAL DIFFERENTIAL MANUAL DIFFERENTIAL (MANUAL DIFF)
[2020-08-02 06:41] LABS: Basophils % 0.1 % (0.1-2.0); Eosinophils % 0.1 % (0.1-12.0); Lymphocytes # 1.4 K/mm3 (0.7-4.5); Lymphocytes % 6.1 % (10-50); Mean Corpuscular HGB Conc 32.1 g/dL (31.8-35.4); Mean Corpuscular Hemoglobin 27.4 pg (27.0-31.2); Mean Corpuscular Volume 85.4 fl (81-99); Mean Platelet Volume 8.4 fl (7.4-10.4); Monocytes # 0.8 K/mm3 (0.1-1.0); Monocytes % 3.5 % (1.7-9.3); Neutrophils # 20.6 K/mm3 (1.8-7.8); Neutrophils % 90.2 % (37.0-80.0); Platelet Count 399 K/mm3 (142-424); Red Blood Count 2.74 M/mm3 (4.20-5.40); Red Cell Distribution Width 14.3 % (11.5-17.5); White Blood Count 22.8 K/mm3 (4.8-10.8)
[2020-08-02 06:46] LABS: Chloride 112 mmol/L (98-107)
[2020-08-02 06:47] LABS: Potassium 3.1 mmoL/L (3.5-5.1); Sodium 141 mmol/L (136-145)
[2020-08-02 06:49] LABS: Alanine Aminotransferase 23 U/L (12-78); Alkaline Phosphatase 72 U/L (38-126); Anion Gap 9.1 mEq/L (5-15); Aspartate Amino Transferase 53 U/L (14-36); Bilirubin,Total 1.1 mg/dl (0.2-1.3); Blood Urea Nitrogen 19 mg/dl (7-17); Carbon Dioxide 23 mmol/L (22.0-30.0); Creatinine Clearance Estimated 71 mL/min (50-200); Estimated Glomerular Filt Rate 73 ml/min (>60); GFR (African American) 88 ML/MIN (>60)
[2020-08-02 06:50] LABS: Albumin Level 2.6 g/dl (3.5-5.0); Albumin/Globulin Ratio 0.9 (1.1-1.8); Glucose 90 mg/dl (74-100); Total Protein,Serum 5.6 g/dl (6.3-8.2)
[2020-08-02 06:52] LABS: Calcium 7.4 mg/dl (8.4-10.2)
[2020-08-02 07:02] LABS: Hematocrit 23.4 % (37.0-47.0); Hemoglobin 7.5 g/dL (12.2-16.2)
--- NOTE | 2020-08-02 07:49 | HMH.CNCARD ---
History of Present Illness Consult date: 08/02/20 Requesting physician: Sancho Quintero Consult reason: shortness of breath Chief complaint: shortness of breath Additional Medical History:: 1. Bilateral pneumonia (08/01/20) 2. Atypical chest pain (08/01/20) a. Troponins (0.18 and 0.16) b. Mid proximal LAD (2018) (Last cath) 3. Sinus tachycardia (08/01/20) a. Loop recorder in place. Non-functioning due to EOL Battery. b. Episode of SVT 4. THAI a. Untreated 5. Essential hypertension 6. Chronic obstructive pulmonary disease 7. Fractured Right Tib Fib a. Fall form 2 weeks ago. 8. History of syncopal episode 9. Hypothyroidism 10. Hypokalemia (08/01/20) 11. Anemia (08/01/20) History of present illness: 60-year-old female presented to ED on 08/01/2020 with increased shortness of breath. Patient had currently been at [facility] for rehabilitation due to a recent fracture of the right tibia-fibula. Patient states she had been discharged from that facility 2 days prior. Upon arrival to the ED patient was noted to have increased shortness of breath and was hypoxic. Patient was also noted to have what resembled supraventricular tachycardia on the cardiac rehabilitation specialist in the ED. Heart rate was noted to be in the 160s to 180s at that time. Patient does have a loop recorder in place but is at end-of-life battery which it has been for the last 6 months. Due to the recent fracture of tib-fib, suspicion of PE was noted. Patient is noted to be high risk for PE due to the recent tib-fib fracture. Pt was prescribed Xarelto 10mg daily via PCP or Ortho due to the risk of developing a pulmonary emboli. Chest x-ray was performed which revealed bilateral pneumonia the left more extensive than the right lobe. Chest CTA was also performed noted to have no evidence of pulmonary emboli, bilateral pneumonia was noted, hiatal hernia and multiple lesions of the liver hemoangiomas. Upon admission patient noted to have elevated troponin at 0.18 then 0.16. Patient is resting quietly in bed. Denies chest pain, tightness or pressure. Patient did say upon arrival to the ED she was having chest pressure but felt that it was more due to her increased shortness of breath. Patient is noted to be on room air with a pulse ox of 94%. No swelling noted of the lower extremity. Right leg is noted as being wrapped with cast on. Fracture tib-fib is being managed by Ortho. Last known cath was in 2018 which revealed mild proximal LAD. Last echocardiogram which was performed earlier this month revealed EF 55% with mild aortic regurgitation. Patient states her shortness of breath is slightly better. Patient is currently being treated with antibiotics per the management of PCP due to pneumonia. No swelling noted of the lower extremities. Patient denies dizziness. Patient does complain of palpitations. Patient is noted to be on the cardiac rehabilitation specialist at this time with a heart rate of 90 bpm. Patient is hypotensive at this time and is receiving IV fluids. Lab work revealed low H and H, hypokalemia, hypocalcemia, and a low TSH. White blood cell count noted to be elevated at 22.8 which is more likely due to the pneumonia. Patient does need to be worked up for anemia. 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 Initial ECG revealed sinus tachycardia with a heart rate of 118 bpm. Discussed plan of care with Dr. Chilel. Due to patient's unstable hemodynamics at this time, would recommend not to perform heart catheterization until patient is more stable or out on the outpatient basis. Patient will be set up for a loop recorder removal and implantation today due to history of SVT and syncopal episodes. Discussed risk and benefits of the procedure with patient. Patient is agreeable to procedure. Will order labs to determine the extent of patient's anemia. PCP ordered
--- NOTE | 2020-08-02 08:42 | HMH.ACPN2 ---
Internal Medicine - PN: Subj *Date: 08/02/20 *Time: 08:15 Interval history: pt laying in bed, states no c/o. when asked what happen pt states she became soa and had chest tightness. pt left rehab on sunday at [facility] and states she became soa. Exam Vital signs and Labs for Last 24 Hours: Temp Pulse Resp BP Pulse Ox 97.9 F 86 18 120/72 94 L 08/02/20 04:00 08/02/20 08:00 08/02/20 04:00 08/02/20 04:00 08/02/20 04:00 Laboratory Results - last 24 hr 08/01/20 09:08: Troponin I 0.16 H 08/01/20 09:08: Lactate 2.2 H 08/01/20 11:23: Lactate 1.7 08/01/20 12:45: Magnesium 1.4 L, TSH 0.44 L 08/02/20 06:07: WBC 22.8 H* D, RBC 2.74 L D, Hgb 7.5 L*, Hct 23.4 L*, MCV 85.4, MCH 27.4, MCHC 32.1, RDW 14.3, Plt Count 399 D, MPV 8.4, Neut % (Auto) 90.2 H, Lymph % (Auto) 6.1 L, [place] % (Auto) 3.5, Eos % (Auto) 0.1, Baso % (Auto) 0.1, Neut # (Auto) 20.6 H, Lymph # (Auto) 1.4, [place] # (Auto) 0.8, Eos # (Auto) 0.0, Baso # (Auto) 0.0 08/02/20 06:07: Sodium 141, Potassium 3.1 L, Chloride 112 H, Carbon Dioxide 23, Anion Gap 9.1, BUN 19 H D, Creatinine 0.80, Estimated Creat Clear 71, Estimated GFR 73, Est GFR ( Amer) 88, Glucose 90, Calcium 7.4 L D, Total Bilirubin 1.1, AST 53 H D, ALT 23 D, Alkaline Phosphatase 72, Total Protein 5.6 L, Albumin 2.6 L D, Globulin 3.0, Albumin/Globulin Ratio 0.9 L I & O for Last 24 hours: Intake & Output 02/07/31/20 08/01/20 08/02/20 11:59 11:59 11:59 11:59 Intake Total 2590 / 2590 1510 / 1510 Output Total 500 / 500 Balance 2089 1510 / 1510 Weight 160 lb 7 oz 168 lb 4.99 oz - Constitutional no acute distress - *Routine HEENT Exam Head: Present: normocephalic Eye: Present: PERRL ENT: Present: mucous membranes moist - *Routine Neck Exam Present: supple. Absent: lymphadenopathy - *Routine Respiratory Exam Present: decreased breath sounds, rhonchi - *Routine Cardiovascular Exam Present: RRR - *Routine Abdominal Exam Present: soft, normoactive bowel sounds. Absent: tenderness - *Routine Extremities Exam Absent: cyanosis, clubbing, edema Comments: splint to rt lower ext - *Routine Skin Exam Present: warm. Absent: rash - *Routine Neurological Exam Present: alert, oriented X3 - Routine Psychiatric Exam Present: normal affect Assessment and Plan (1) Sepsis Status: Acute Category: Medical Code(s): A41.9 - Sepsis, unspecified organism (2) Pneumonia Status: Acute Qualifiers: Pneumonia type: aspiration pneumonia Aspiration pneumonia type: unspecified Laterality: bilateral Lung location: lower lobe of lung Qualified Code(s): J69.0 - Pneumonitis due to inhalation of food and vomit Category: Medical Code(s): J18.9 - Pneumonia, unspecified organism (3) SOB (shortness of breath) Status: Acute Category: Medical Code(s): R06.02 - Shortness of breath (4) Dyspnea Status: Acute Qualifiers: Dyspnea type: dyspnea on exertion Qualified Code(s): R06.00 - Dyspnea, unspecified Category: Medical Code(s): R06.00 - Dyspnea, unspecified (5) Lumbar facet arthropathy Status: Acute Category: Medical Code(s): M47.816 - Spondylosis without myelopathy or radiculopathy, lumbar region (6) Sinus tachycardia Status: Acute Category: Medical Code(s): R00.0 - Tachycardia, unspecified (7) Tachycardia Status: Acute Category: Medical Code(s): R00.0 - Tachycardia, unspecified (8) GERD (gastroesophageal reflux disease) Status: Chronic Qualifiers: Esophagitis presence: esophagitis presence not specified Qualified Code(s): K21.9 - Gastro-esophageal reflux disease without esophagitis Category: Medical Code(s): K21.9 - Gastro-esophageal reflux disease without esophagitis (9) HTN (hypertension) Status: Chronic Qualifiers: Hypertension type: essential hypertension Qualified Code(s): I10 - Essential (primary) hypertension Category: Medical Code(s): I10 - Essential (primary) hyp
[2020-08-02 09:31] LABS: Lymphocytes % 5 % (10-50); Monocytes % 2 % (2-9); Neutrophils % 89 % (42-76); RBC Morphology Normal; Total Cells Counted 100
[2020-08-02 09:32] LABS: Platelet Estimate Normal
--- NOTE | 2020-08-02 10:30 | HMH.PULMCON ---
*Admission Date: 08/01/20 *Reason for consult:: Pneumonia, shortness of breath *History of present illness: Ms. Thrasher is a 60-year-old female never smoker no prior respiratory complaints, had a personal history of asthma well-controlled recently started on Breo inhaler 6 months ago, recent tib-fib fracture currently fci presented to the hospital with sudden onset chest pain along with shortness of breath. Patient admission to the ED found to be saturating low 80s and was admitted for further evaluation. Patient admits to being hot for couple of days before presenting to the ED along with productive phlegm. Never checked her temperature. Patient also admits runny nose and nasal fullness and facial pain 4-5 days prior to presentation patient also admits prior sinus issues for which she had received antibiotics [facility] History Medical History: Reports:: Anxiety, Arrhythmia, Asthma, Chronic Obstructive Pulmonary Disease (COPD), Coronary Artery Disease, Depression, Gastroesophageal Reflux Disease(GERD), Hyperlipidemia, Hypertension, Migraine, Palpitations Denies:: Cancer, Diabetes Mellitus Type 1, Diabetes Mellitus Type 2, Internal Pacemaker, MRSA, Seizures *Have you ever received a pneumonia vaccine?: Yes *Have you received a flu vaccine this season?: Yes Other Medical History: Reports: Arthritis, Fibromyalgia, Hormone Therapy, Hypothyroidism, Liver Disease, Thyroid Disease, Other. Denies: Blood Transfusion Reaction Other Surgeries: Yes: No Previous Surgery, Appendectomy, BSO, Cardiac Catheterization, Cholecystectomy, Colonoscopy, , EGD, Hysterectomy-Total, Thyroidectomy. No: Pacemaker. Comment Only: Other (loop recorder insertion) Amputation: No Fractures: Yes (2018- FX. LEFT ANKLE) - *Social History Smoking Status: Never smoker Alcohol Intake: current Alcohol Intake Frequency:: holidays/special occasions only Substance Use Type: denies use *Occupational Status:: disabled Housing: apartment Household Members: none *Travel in the last 8 weeks: None - Psychiatric History Pschychiatric History:: Reports:: Anxiety, Depression Family Hx:: Cancer, Coronary Artery Disease, Diabetes, Heart Attack, Hyperlipidemia, Hypertension, Kidney Disease, Thyroid Disorder ROS - Cons Reports anorexia, Reports body ache(s), Reports chills - ENT Reports nasal congestion, Reports sinus pressure, Denies bleeding gums - Card Reports shortness of breath with activity, Reports leg swelling - Resp Respiratory: Reports chest congestion, Reports cough, Reports dyspnea on exertion, Reports excessive phlegm production, Reports cough with sputum production - GI Gastrointestingal: Reports: system reviewed and no additional complaints, except as docu - Psych Reports lack of enjoyment Meds Home Medications Medication Instructions Recorded Confirmed Type Aspirin [Low Dose Aspirin EC] 81 mg PO DAILY 09/22/19 08/01/20 History Linaclotide [Linzess] 72 mcg PO DAILY 11/03/19 08/01/20 History omeprazole 40 mg capsule,delayed 40 mg PO DAILY #90 cap 01/12/20 08/01/20 Rx release morphine 1 mg/mL (1 mL) in 0.9 % 0.9 mg CONTINUOUS IV INFUSION 06/02/20 08/01/20 History sodium chloride intravenous syringe DAILY ml metoprolol succinate 50 mg 50 mg PO HS tab 07/12/20 08/01/20 History tablet,extended release 24 hr rosuvastatin 10 mg tablet 10 mg PO HS tab 07/12/20 08/01/20 History Duloxetine HCl [Cymbalta] 60 mg PO DAILY 07/21/20 08/01/20 History Levothyroxine Sodium 50 mcg PO DAILY 07/21/20 08/01/20 History [Levothyroxine 50mcg (0.05mg) Tab] Quetiapine Fumarate 200 mg PO HS 07/21/20 08/01/20 History estradioL [Estradiol] 1 mg PO DAILY 07/21/20 08/01/20 History lorazepam 0.5 mg tablet 0.5 mg PO BID PRN #60 tab 07/26/20 08/01/20 Rx Calcium Carbonate/Vitamin D3 1 each PO DAILY 08/01/20 08/01/20 History [Calcium 600-Vit D3 400 Tablet] Fluticasone Propionate [24 Hour 1 spray NS DAILY 08/01/20 08/01/20 History Allergy] Levocetirizine Dihydroc
--- NOTE | 2020-08-02 10:39 | SW/DCPLANNER ---
Addendum entered by Marisela Byers 08/05/20 12:31: Lulu with [facility] has stated that services will begin tomorrow for this patient. Addendum entered by Marisela Byers 08/05/20 09:39: This patient will discharge home today. Patient is agreeable to home health services ([facility]) at time of discharge. I will set patient up with [facility] for SN/PT/OT. Patient stated that she does not need any DME at discharge. I will provide this patient with information regarding [facility] [employer]. Patient will discharge home later today: patient does have transportation home. Original Note: This patient recently discharged home alone from [facility] after being there a week for skilled therapy. Patient stated that she is a very private person and was ready to be home. Patient was at home for one day before returning to [facility]. I spoke with this patient today regarding plans once medically stable for discharge: patient stated that she wants to return home. I spoke with patient regarding home health services and she is unsure if she is interested in services but stated I will think about home health services . I will continue to follow up with this patient regarding discharge plans. Discharge date is unknown at this time.
[2020-08-02 10:53] LABS: Reticulocyte % (Auto) 3.1 % (0.9-3.2)
[2020-08-02 11:06] LABS: Free T4 (Free Thyroxine) 1.03 ng/dl (0.78-2.19)
[2020-08-02 12:38] LABS: Iron 12 ug/dL (37-170)
[2020-08-02 12:49] LABS: Total Iron Binding Capacity 275 ug/dL (265-497)
[2020-08-02 13:28] LABS: Vitamin B12 229 pg/mL (239-931)
--- NOTE | 2020-08-02 14:51 | P.PCN_ITS ---
[facility] Loop Recorder Date: 08/02/20 Time: 13:20 Procedure Performed:: Removal of existing ILR due to EOL and placement of new ILR Indication:: Recurrent syncope Technique:: After informed consent obtained, 1% lidocaine with epinephrine was used to anesthetize the site along the left anterior aspect of the chest near the sternal border where the existing loop recorder was located. Using a scalpel, I dissected down to the existing loop recorder and using forceps removed the old loop recorder. Using the supplied preloaded apparatus, the new loop recorder was placed subcutaneously in a different position without difficulty. Following the deployment of the loop recorder interrogation of the device was performed to ensure appropriate voltage was being detected (0.26 mV). Once this was verified, Steri-Strips were placed over the incision. Patient tolerated the procedure well with minimal discomfort. Impression:: Successful removal of existing loop recorder and implantation of new loop recorder Serial Number:: [employer] Lux-DX Serial number [id number] Plan:: Routine postop care
--- NOTE | 2020-08-02 15:11 | PC.NURSE ---
Only complaint voiced this shift was of a headache, she was medicated per MAR w/ tylenol. Denies pain in RLE. Diminished breath sounds noted bilat. Abdomen soft, non-tender w/ active BS. Pt did have a BM early this AM before order for occult blood was placed, staff aware of need for stool & hat is present in toilet for collection. Voiding w/o difficulty. Ambulates w/ standby assistance and use of walker, pt does very well. Skin intact other than surg sites on RLE. Loop recorder inserted this shift @ bedside, tolerated well. Call mitch w/in reach. RT @ bedside @ this time to induce sputum. Speci cup available.
--- NOTE | 2020-08-02 15:37 | PC.NURSE ---
Sputum induced, pt unable to make productive cough. Instructed to continue to cough. Specimen cup left at bedside.
--- NOTE | 2020-08-02 19:01 | HMH.ORTHOCON ---
*Admission Date: 08/01/20 *Reason for consult:: Follow-up for right tibia and lateral malleolus fractures *History of present illness: Ms. Thrasher is a 60-year-old female admitted to hospital with pneumonia. She is status post right tibial nailing and ORIF of right lateral malleolus, date of surgery 07/21/2020. She says she is doing well with regards to her right lower extremity. She reports some pain around the knee as well as around the ankle and she states her pain is a 3 out of 10 at rest but a 7 out of 10 with attempted movements. She states her pain is well controlled with as needed pain medication and elevation. No history of any distal tingling or numbness. [facility] History I have reviewed the patient's past medical history: Yes Medical History: Reports:: Anxiety, Arrhythmia, Asthma, Chronic Obstructive Pulmonary Disease (COPD), Coronary Artery Disease, Depression, Gastroesophageal Reflux Disease(GERD), Hyperlipidemia, Hypertension, Migraine, Palpitations Denies:: Cancer, Diabetes Mellitus Type 1, Diabetes Mellitus Type 2, Internal Pacemaker, MRSA, Seizures *Have you ever received a pneumonia vaccine?: Yes *Have you received a flu vaccine this season?: Yes Other Medical History: Reports: Arthritis, Fibromyalgia, Hormone Therapy, Hypothyroidism, Liver Disease, Thyroid Disease, Other. Denies: Blood Transfusion Reaction Other Surgeries: Yes: No Previous Surgery, Appendectomy, BSO, Cardiac Catheterization, Cholecystectomy, Colonoscopy, , EGD, Hysterectomy-Total, Thyroidectomy. No: Pacemaker. Comment Only: Other (loop recorder insertion) Amputation: No Fractures: Yes (2018- FX. LEFT ANKLE) - *Social History Smoking Status: Never smoker Alcohol Intake: current Alcohol Intake Frequency:: holidays/special occasions only Substance Use Type: denies use *Occupational Status:: disabled Housing: apartment Household Members: none *Travel in the last 8 weeks: None - Psychiatric History Pschychiatric History:: Reports:: Anxiety, Depression Family Hx:: Cancer, Coronary Artery Disease, Diabetes, Heart Attack, Hyperlipidemia, Hypertension, Kidney Disease, Thyroid Disorder Review of Systems - Review of Systems Review of systems:: pertinent systems reviewed and negative unless documented below - *Neurologic Reports abnormal walking, Reports unsteadiness, Reports weakness, Denies abnormal hearing, Denies abnormal speech, Denies loss of vision Meds Home Medications Medication Instructions Recorded Confirmed Type RX: Aspirin [Low Dose Aspirin EC] 81 mg PO DAILY 09/22/19 08/01/20 History RX: Linaclotide [Linzess] 72 mcg PO DAILY 11/03/19 08/01/20 History omeprazole 40 mg capsule,delayed 40 mg PO DAILY #90 cap 01/12/20 08/01/20 Rx release morphine 1 mg/mL (1 mL) in 0.9 % 0.9 mg CONTINUOUS IV INFUSION 06/02/20 08/01/20 History sodium chloride intravenous syringe DAILY ml metoprolol succinate 50 mg 50 mg PO HS tab 07/12/20 08/01/20 History tablet,extended release 24 hr rosuvastatin 10 mg tablet 10 mg PO HS tab 07/12/20 08/01/20 History RX: Duloxetine HCl [Cymbalta] 60 mg PO DAILY 07/21/20 08/01/20 History RX: Levothyroxine Sodium 50 mcg PO DAILY 07/21/20 08/01/20 History [Levothyroxine 50mcg (0.05mg) Tab] RX: Quetiapine Fumarate 200 mg PO HS 07/21/20 08/01/20 History RX: estradioL [Estradiol] 1 mg PO DAILY 07/21/20 08/01/20 History lorazepam 0.5 mg tablet 0.5 mg PO BID PRN #60 tab 07/26/20 08/01/20 Rx Calcium Carbonate/Vitamin D3 1 each PO DAILY 08/01/20 08/01/20 History [Calcium 600-Vit D3 400 Tablet] Fluticasone Propionate [24 Hour 1 spray NS DAILY 08/01/20 08/01/20 History Allergy] Levocetirizine Dihydrochloride 5 mg PO DAILY 08/01/20 08/01/20 History [Xyzal] RX: Montelukast Sodium 10 mg PO HS 08/01/20 08/01/20 History RX: Pregabalin 150 mg PO BID 08/01/20 08/01/20 History Rivaroxaban [Xarelto 10mg tablet] 10 mg PO QPMWM 08/02/20 08/02/20 History Allergies Allergy/AdvReac Type Severity Reaction Status Date /
[2020-08-02 22:11] LABS: Vancomycin,Trough 10.8 ug/mL (5.0-10.0)
--- NOTE | 2020-08-02 22:23 | PC.NURSE ---
2223 jarrod from pharmcy called and stated dose of vanc that is due could be given
--- NOTE | 2020-08-02 22:50 | PC.NURSE ---
1st unit of blood completed at 2200 with no s/s of transfusion reaction
[2020-08-03] VITALS (14 sets, daily range): BP systolic 126–139; BP diastolic 81–92; PULSE 70–98; RESP 16–18; TEMP 36.6–37.2; O2SAT 91–97; BMI 30.7
[2020-08-03 02:15] LABS: Hematocrit 31.9 % (37.0-47.0)
[2020-08-03 02:19] LABS: Hemoglobin 10.2 g/dL (12.2-16.2)
--- NOTE | 2020-08-03 02:45 | PC.NURSE ---
0100 transfusion completed, no s/s of transfusion reaction
--- NOTE | 2020-08-03 05:55 | PC.NURSE ---
shift summary pts lung sounds are clear with sats maintained 94% or above on room air with a rate ranging from 16-18. pt is able to use walker to go to the restroom with a standby assist. pt is alert and oriented X4. pt denies any nausea, vomiting, or diarrhea.
[2020-08-03 07:41] LABS: Anion Gap 8.5 mEq/L (5-15); Blood Urea Nitrogen 13 mg/dl (7-17); Calcium 7.4 mg/dl (8.4-10.2); Carbon Dioxide 24 mmol/L (22.0-30.0); Chloride 114 mmol/L (98-107); Creatinine Clearance Estimated 73 mL/min (50-200); Estimated Glomerular Filt Rate 102 ml/min (>60); GFR (African American) 123 ML/MIN (>60); Glucose 106 mg/dl (74-100); Potassium 3.5 mmoL/L (3.5-5.1); Sodium 143 mmol/L (136-145)
[2020-08-03 07:51] LABS: Basophils % 0.2 % (0.1-2.0); Eosinophils # 0.2 K/mm3 (0.0-0.4); Eosinophils % 0.8 % (0.1-12.0); Hematocrit 33.8 % (37.0-47.0); Hemoglobin 10.5 g/dL (12.2-16.2); Lymphocytes # 1.1 K/mm3 (0.7-4.5); Lymphocytes % 4.9 % (10-50); Mean Corpuscular HGB Conc 31.2 g/dL (31.8-35.4); Mean Corpuscular Hemoglobin 27.2 pg (27.0-31.2); Mean Corpuscular Volume 87.1 fl (81-99); Mean Platelet Volume 8.1 fl (7.4-10.4); Monocytes # 0.6 K/mm3 (0.1-1.0); Monocytes % 2.5 % (1.7-9.3); Neutrophils % 91.7 % (37.0-80.0); Platelet Count 382 K/mm3 (142-424); Red Blood Count 3.87 M/mm3 (4.20-5.40); Red Cell Distribution Width 14.7 % (11.5-17.5); White Blood Count 22.9 K/mm3 (4.8-10.8)
[2020-08-03 08:01] LABS: MANUAL DIFFERENTIAL MANUAL DIFFERENTIAL (MANUAL DIFF)
--- NOTE | 2020-08-03 08:07 | HMH.PNCARD ---
Subjective Date: 08/03/20 Time: 08:00 Principal diagnosis: Pneumonia Interval history: 60-year-old female presented to ED on 08/01/2020 with increased shortness of breath. Patient had currently been at [facility] for rehabilitation due to a recent fracture of the right tibia-fibula. 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 Heart rate was noted to be in the 160s to 180s at that time. Patient does have a loop recorder in place but is at end-of-life battery which it has been for the last 6 months. Loop recorder was replaced yesterday. Patient states the loop recorder site is painful there is a dressing that is clean and dry at the site. Dressing removed from [place] recorder site. Loop recorder incision noted as slightly red no swelling noted. No drainage noted from the site. Dressing reapplied. Patient complains of pain at the loop recorder site. Will prescribe Toradol 10 mg p.o. every 6 hours as needed for pain. Due to the recent fracture of tib-fib, suspicion of PE was noted. Patient is noted to be high risk for PE due to the recent tib-fib fracture. Pt was prescribed Xarelto 10mg daily via PCP or Ortho due to the risk of developing a pulmonary emboli. Chest x-ray was performed which revealed bilateral pneumonia the left more extensive than the right lobe. Chest CTA was also performed noted to have no evidence of pulmonary emboli, bilateral pneumonia was noted, hiatal hernia and multiple lesions of the liver hemoangiomas. Pneumonia is currently being treated with antibiotics and managed by PCP and pulmonology. Patient is resting quietly in bed. Denies chest pain, tightness or pressure. Patient is noted to be on room air with a pulse ox of 94%. No swelling noted of the lower extremity. Right leg is noted as being wrapped with cast on. Fracture tib-fib is being managed by Ortho. Last known cath was in 2018 which revealed mild proximal LAD. Last echocardiogram which was performed earlier this month revealed EF 55% with mild aortic regurgitation. Patient states her shortness of breath is slightly better. Patient is currently being treated with antibiotics per the management of PCP due to pneumonia. No swelling noted of the lower extremities. Patient denies dizziness. Patient denies complain of palpitations. Patient is noted to be on the monitor car operator at this time with a heart rate of 90 bpm. Blood pressure is stable. Patient was transfused 2 units of packed red blood cells yesterday. Patient states that she feels no better. Patient stated that she feels like she got too much blind. H&H still remains low. Iron studies were performed. Iron was noted as low. This will be managed by PCP. Vitamin B12 229 which is low. This is being managed by PCP. Patient noted to have hypokalemia. Potassium p.o. was given for PCP. Patient is complaining of being nauseated with no vomiting noted. Will defer this to PCP. Initial ECG revealed sinus tachycardia with a heart rate of 90bpm. Echocardiogram was performed yesterday. Echocardiogram revealed EF of 55% with no regional wall abnormality. Right ventricular systolic function is normal. There is no evidence of atrial septal defect. There is mild mitral regurgitation. There is mild tricuspid regurgitation. The RV systolic pressure is elevated at 35-40 which is mild. Moderate aortic regurgitation noted. Mild pulmonic valvular regurgitation noted. There is anterior space, not totally echo-free, suggestive of epicardial fat. Due to patient complaining of pain around the loop recorder site. Toradol 10 mg p.o. every 6 hours as needed was prescribed for the pain. H&H has improved to 10. Due to patient's cardiovascular disease would like an H&H to remain higher than 10. Iron studies were abnormal. This is deferred to PCP. Please notify cardiology of any changes in patient status. Thank you for letting
--- NOTE | 2020-08-03 08:33 | XR_ITS ---
PROCEDURE: XR CHEST 2V CLINICAL HISTORY: SOA Shortness of air COMPARISON: CR XR CHEST PORTABLE from 01/05/2020 CR XR CHEST PORTABLE from 07/20/[address] ANGIO CHEST from 08/01/2020 CR XR CHEST PORTABLE from 08/02/2020 FINDINGS: Normal heart size. Loop recorder device is present along the chest wall anteriorly. There is patchy increased density in the right upper lobe which has developed in the interval may be due to an area of atelectasis or infiltrate. There is consolidation in the left lower lobe consistent with pneumonia. Patchy density also present in the region of the right middle lobe. There is a small left effusion. No acute bony abnormalities. IMPRESSION: Left lower lobe pneumonia with small effusion. The pneumonia appears slightly worse. Pneumonia or atelectatic change in the right upper lobe has become apparent radiographically also with infiltrate in the right middle lobe not significantly changed Dictated by: Diego Kowalski MD 08/03/2020 09:22 Diego Kowalski MD in [place] 08/03/2020 09:22
--- NOTE | 2020-08-03 08:36 | HMH.ACPN2 ---
Internal Medicine - PN: Subj *Date: 08/03/20 *Time: 09:14 Interval history: 60-year-old female patient sitting up the side of the bed, no respiratory distress noted. Oxygen saturations 97% on room air. Cardiology removed old loop recorder and replaced with new loop recorder yesterday patient tolerated without difficulty dressing to the midsternal chest clean dry and intact. Orthopedics seen yesterday and redressed right lower extremity dressing sutures to right knee clean dry and intact wound edges well approximated. Patient does states she just does not feel very good today does report some nausea. Pulmonology has seen and recommends: Plan: - Continue vancomycin, Zosyn and azithromycin - Recommend discontinuing clindamycin - Follow with sputum cultures, blood cultures and nasal MRSA PCR / screen and will de-escalate antibiotics based on the results. - DuoNebs every 6 hours as needed Exam Vital signs and Labs for Last 24 Hours: Temp Pulse Resp BP Pulse Ox 98.0 F 98 H 16 139/81 97 08/03/20 08:21 08/03/20 08:21 08/03/20 08:21 08/03/20 08:21 08/03/20 08:21 Laboratory Results - last 24 hr 08/02/20 06:07: Total Counted 100, Neutrophils % (Manual) 89 H, Band Neutrophils % 4.0, Lymphocytes % (Manual) 5 L, Monocytes % (Manual) 2, Platelet Estimate Normal, RBC Morphology Normal 08/02/20 06:07: Iron 12 L, TIBC 275, Iron Saturation 4.30668 L 08/02/20 06:07: Retic Count (auto) 3.1 08/02/20 06:07: Vitamin B12 229 L 08/02/20 06:07: Folate 4.20 08/02/20 06:07: Free T4 1.03 08/02/20 09:15: Blood Type B Positive, Antibody Screen Negative, Crossmatch (AHG) See Detail 08/02/20 10:44: Blood Type Confirm B Positive 08/02/20 20:49: Vancomycin Trough 10.8 H 08/03/20 02:07: Hgb 10.2 L D, Hct 31.9 L 08/03/20 07:22: WBC 22.9 H*, RBC 3.87 L D, Hgb 10.5 L, Hct 33.8 L, MCV 87.1, MCH 27.2, MCHC 31.2 L, RDW 14.7, Plt Count 382, MPV 8.1, Neut % (Auto) 91.7 H, Lymph % (Auto) 4.9 L, [place] % (Auto) 2.5, Eos % (Auto) 0.8, Baso % (Auto) 0.2, Neut # (Auto) 21.0 H, Lymph # (Auto) 1.1, [place] # (Auto) 0.6, Eos # (Auto) 0.2, Baso # (Auto) 0.0 08/03/20 07:22: Sodium 143, Potassium 3.5, Chloride 114 H, Carbon Dioxide 24, Anion Gap 8.5, BUN 13 D, Creatinine 0.60 D, Estimated Creat Clear 73, Estimated GFR 102, Est GFR ( Amer) 123 D, Glucose 106 H, Calcium 7.4 L I & O for Last 24 hours: Intake & Output 07/31/20 08/01/20 08/02/20 08/03/20 23:59 23:59 23:59 23:59 Intake Total 2950 / 2950 2753 / 2753 305 / 305 Output Total 500 / 500 Balance 2450 / 2450 2753 / 2753 305 / 305 Weight 160 lb 7 oz 168 lb 4.99 oz 173 lb Microbiology Reports for the Last 24 Hours: Microbiology 08/01/20 04:45 Blood Blood Culture - Preliminary NO GROWTH AFTER 48 HOURS 08/01/20 04:45 Blood Blood Culture - Preliminary NO GROWTH AFTER 48 HOURS - Constitutional no acute distress - *Routine HEENT Exam Head: Present: normocephalic Eye: Present: EOMI ENT: Present: mucous membranes moist - *Routine Neck Exam Present: trachea midline. Absent: tracheal deviation - *Routine Respiratory Exam Present: other. Absent: accessory muscle use Comments: Course - *Routine Cardiovascular Exam Present: RRR - *Routine Abdominal Exam Present: soft, normoactive bowel sounds. Absent: tenderness, distended - *Routine Extremities Exam Present: edema, pulses intact. Absent: cyanosis, calf tenderness Comments: Edema noted to right knee and right foot - *Routine Skin Exam Present: dry, warm, wounds. Absent: erythema Comments: Dressing right lower extremity clean dry and intact - *Routine Neurological Exam Present: alert, oriented X3. Absent: altered mental status - Routine Psychiatric Exam Present: normal affect, normal thought process. Absent: auditory hallucinations, visual hallucinations Assessment and Plan (1) Sepsis Status: Acute Category: Medical Code(s): A41.9 - Sep
--- NOTE | 2020-08-03 09:58 | HMH.PULMPN ---
Internal Medicine - PN: Subj *Date: 08/03/20 *Time: 11:21 Interval history: No acute respiratory events overnight Exam - Constitutional Constitutional:: Present: no acute distress, comfortable - HENMT Exam HENMT: Present: atraumatic - Eye Exam Eyes:: Present: eyelids normal - Neck Exam Neck:: Present: thyroid normal - Respiratory Exam Respiratory:: Present: able to speak in complete sentences, no respiratory distress, normal respiratory effort - Cardiovascular Exam Cardiac:: Present: S1, S2 - GI Exam GI:: Present: no hepatosplenomegaly - Skin Exam Skin: Present: warm, no rash, dry - Neurological Exam Neurological: Present: alert, awake, normal cognition - Extremities Exam Extremities: Present: no cyanosis, no clubbing Assessment and Plan (1) Sepsis Status: Acute Category: Medical Code(s): A41.9 - Sepsis, unspecified organism (2) Pneumonia Status: Acute Qualifiers: Pneumonia type: aspiration pneumonia Aspiration pneumonia type: unspecified Laterality: bilateral Lung location: lower lobe of lung Qualified Code(s): J69.0 - Pneumonitis due to inhalation of food and vomit Category: Medical Code(s): J18.9 - Pneumonia, unspecified organism (3) SOB (shortness of breath) Status: Acute Category: Medical Code(s): R06.02 - Shortness of breath (4) Dyspnea Status: Acute Qualifiers: Dyspnea type: dyspnea on exertion Qualified Code(s): R06.00 - Dyspnea, unspecified Category: Medical Code(s): R06.00 - Dyspnea, unspecified (5) Lumbar facet arthropathy Status: Acute Category: Medical Code(s): M47.816 - Spondylosis without myelopathy or radiculopathy, lumbar region (6) Sinus tachycardia Status: Acute Category: Medical Code(s): R00.0 - Tachycardia, unspecified (7) Tachycardia Status: Acute Category: Medical Code(s): R00.0 - Tachycardia, unspecified (8) GERD (gastroesophageal reflux disease) Status: Chronic Qualifiers: Esophagitis presence: esophagitis presence not specified Qualified Code(s): K21.9 - Gastro-esophageal reflux disease without esophagitis Category: Medical Code(s): K21.9 - Gastro-esophageal reflux disease without esophagitis (9) HTN (hypertension) Status: Chronic Qualifiers: Hypertension type: essential hypertension Qualified Code(s): I10 - Essential (primary) hypertension Category: Medical Code(s): I10 - Essential (primary) hypertension (10) Hypothyroidism Status: Chronic Qualifiers: Hypothyroidism type: acquired Qualified Code(s): E03.9 - Hypothyroidism, unspecified Category: Medical Code(s): E03.9 - Hypothyroidism, unspecified (11) THAI (obstructive sleep apnea) Status: Chronic Category: Medical Code(s): G47.33 - Obstructive sleep apnea (adult) (pediatric) (12) Fracture of shaft of right tibia with routine healing Status: Acute Category: Medical Code(s): S82.201D - Unspecified fracture of shaft of right tibia, subsequent encounter for closed fracture with routine healing (13) Closed fracture of ankle with routine healing Status: Acute Qualifiers: Laterality: right Qualified Code(s): S82.891D - Other fracture of right lower leg, subsequent encounter for closed fracture with routine healing Category: Medical Code(s): S82.899D - Other fracture of unspecified lower leg, subsequent encounter for closed fracture with routine healing - Assessment and plan all Dx Assessment and Plan for all problems:: #Hospital-acquired pneumonia: 60-year-old never smoker no prior respiratory complaints carries a diagnosis of asthma, denies any family history of asthma but recently started using Breo inhaler, recurrent sinus issues presented with acute onset of chest pain and shortness of breath and CT showed bilateral pneumonia predominantly significant in the left lower lobe. Respiratory viral panel along with COVID-19 PCR testing negative. Patient started on broad-
--- NOTE | 2020-08-03 10:11 | HMH.PHACONS ---
- Pharmacy Consult Date: 08/03/20 Time: 10:11 Referring provider: DR. NIETO Reason for Consult:: VANCOMYCIN TROUGH LEVEL AND DOSE CHANGE Allergies and ADEs:: Allergies Allergy/AdvReac Type Severity Reaction Status Date / Time captopril Allergy Mild Hives Verified 07/21/20 03:22 Home Medications:: Home Medications Medication Instructions Recorded Confirmed Type Aspirin [Low Dose Aspirin EC] 81 mg PO DAILY 09/22/19 08/01/20 History Linaclotide [Linzess] 72 mcg PO DAILY 11/03/19 08/01/20 History omeprazole 40 mg capsule,delayed 40 mg PO DAILY #90 cap 01/12/20 08/01/20 Rx release morphine 1 mg/mL (1 mL) in 0.9 % 0.9 mg CONTINUOUS IV INFUSION 06/02/20 08/01/20 History sodium chloride intravenous syringe DAILY ml metoprolol succinate 50 mg 50 mg PO HS tab 07/12/20 08/01/20 History tablet,extended release 24 hr rosuvastatin 10 mg tablet 10 mg PO HS tab 07/12/20 08/01/20 History Duloxetine HCl [Cymbalta] 60 mg PO DAILY 07/21/20 08/01/20 History Levothyroxine Sodium 50 mcg PO DAILY 07/21/20 08/01/20 History [Levothyroxine 50mcg (0.05mg) Tab] Quetiapine Fumarate 200 mg PO HS 07/21/20 08/01/20 History estradioL [Estradiol] 1 mg PO DAILY 07/21/20 08/01/20 History lorazepam 0.5 mg tablet 0.5 mg PO BID PRN #60 tab 07/26/20 08/01/20 Rx Calcium Carbonate/Vitamin D3 1 each PO DAILY 08/01/20 08/01/20 History [Calcium 600-Vit D3 400 Tablet] Fluticasone Propionate [24 Hour 1 spray NS DAILY 08/01/20 08/01/20 History Allergy] Levocetirizine Dihydrochloride 5 mg PO DAILY 08/01/20 08/01/20 History [Xyzal] Montelukast Sodium 10 mg PO HS 08/01/20 08/01/20 History Pregabalin 150 mg PO BID 08/01/20 08/01/20 History Rivaroxaban [Xarelto 10mg tablet] 10 mg PO QPMWM 08/02/20 08/02/20 History Height: 1.6 m Weight: 78.471 kg Laboratory Results:: Laboratory Results - last 24 hr 08/02/20 06:07: Iron 12 L, TIBC 275, Iron Saturation 4.75375 L 08/02/20 06:07: Retic Count (auto) 3.1 08/02/20 06:07: Vitamin B12 229 L 08/02/20 06:07: Folate 4.20 08/02/20 06:07: Free T4 1.03 08/02/20 09:15: Blood Type B Positive, Antibody Screen Negative, Crossmatch (AHG) See Detail 08/02/20 10:44: Blood Type Confirm B Positive 08/02/20 20:49: Vancomycin Trough 10.8 H 08/03/20 02:07: Hgb 10.2 L D, Hct 31.9 L 08/03/20 07:22: WBC 22.9 H*, RBC 3.87 L D, Hgb 10.5 L, Hct 33.8 L, MCV 87.1, MCH 27.2, MCHC 31.2 L, RDW 14.7, Plt Count 382, MPV 8.1, Neut % (Auto) 91.7 H, Lymph % (Auto) 4.9 L, [place]ie % (Auto) 2.5, Eos % (Auto) 0.8, Baso % (Auto) 0.2, Neut # (Auto) 21.0 H, Lymph # (Auto) 1.1, Bertie # (Auto) 0.6, Eos # (Auto) 0.2, Baso # (Auto) 0.0 08/03/20 07:22: Sodium 143, Potassium 3.5, Chloride 114 H, Carbon Dioxide 24, Anion Gap 8.5, BUN 13 D, Creatinine 0.60 D, Estimated Creat Clear 73, Estimated GFR 102, Est GFR ( Amer) 123 D, Glucose 106 H, Calcium 7.4 L Medical History: Reports:: Anxiety, Arrhythmia, Asthma, Chronic Obstructive Pulmonary Disease (COPD), Coronary Artery Disease, Depression, Gastroesophageal Reflux Disease(GERD), Hyperlipidemia, Hypertension, Migraine, Palpitations Denies:: Cancer, Diabetes Mellitus Type 1, Diabetes Mellitus Type 2, Internal Pacemaker, MRSA, Seizures Assessment and Plan (1) Sepsis Status: Acute Category: Medical Code(s): A41.9 - Sepsis, unspecified organism (2) Pneumonia Status: Acute Qualifiers: Pneumonia type: aspiration pneumonia Aspiration pneumonia type: unspecified Laterality: bilateral Lung location: lower lobe of lung Qualified Code(s): J69.0 - Pneumonitis due to inhalation of food and vomit Category: Medical Code(s): J18.9 - Pneumonia, unspecified organism (3) SOB (shortness of breath) Status: Acute Category: Medical Code(s): R06.02 - Shortness of breath (4) Dyspnea Status: Acute Qualifiers: Dyspnea type: dyspnea on exertion Qualified Code(s): R06.00 - Dyspnea, unspecified Category: Medical Code(s): R06.00 - Dyspnea, unspecified (5) Lumbar facet
[2020-08-03 11:07] LABS: Occult Blood,Stool Positive (Negative)
--- NOTE | 2020-08-03 11:42 | HMH.SLDYSPHA ---
Speech & Language Evaluation Speech/Language Dysphagia Evaluation Start: 08/03/20 11:32 Freq: ONCE Status: Active Protocol: Document 08/03/20 11:32 CORTNEY (Rec: 08/03/20 11:41 CORTNEY [id number]) Dysphagia Assess/Goals/Plan Assessment Date of Evaluation: 08/03/20 Evaluation Type Initial Certification Assessment/Problems Dysphagia Does Patient Qualify for Service No Qualify/Failure Comment Patient showed no overt s/s of dysphagia Recommendations PHYSICIAN CERTIFICATION: The specified therapy services are required, authorized, and reviewed every 30 days. Diet Recommendations Normal Liquid Type Recommendations Normal/Thin Plan Pt/Guardian verbally ack understanding Yes of dx/prognosis/goals G -code Required No Speech & Language HPI Language Primary Language Serbian General Information General Current Food Consistancy Regular,Thin Liquids Dentition Good Dentition Oxygen Status Room Air Facial Symmetry Symmetrical Patient Orientation Person,Place,Time,Situation Ability to Follow Directions Excellent Dysphagia:Food Presentation Evaluation Food Type Regular,Liquid,Pudding Dysphagia Evaluation Summary Ms. Thrasher was given the following consistencies: thins anisha straw and open cup, pudding, and regular. No overt s/s of dysphagia noted during evaluation. Should problems continue or pneumonia worsen to right lower lobe, a modified barium swallow study is recommended. Stroke Dysphagia Assessment PHYSICIAN CERTIFICATION: I certify the specified therapy services for Betty Thrasher are required, authorized, and reviewed every 30 days.
[2020-08-03 15:13] LABS: Lymphocytes % 4 % (10-50); Monocytes % 4 % (2-9); Neutrophils % 92 % (42-76); Platelet Estimate Normal; RBC Morphology Normal; Total Cells Counted 100
--- NOTE | 2020-08-03 15:49 | PC.NURSE ---
PT REPORTS BEING WORN OUT THIS SHIFT. PT HAS NOT BEEN ABLE TO SLEEP SHE STATES SINCE SHE HAS BEEN IN THE HOSPITAL. THIS NURSE HAS SPOKE TO Mik BARRERA AND DR NIETO ABOUT RE-ORDERING PT'S HOME MEDS. PT REMAINS ON ROOM AIR W/ NO S/S OF RESP DISTRESS. LUNGS W/ CRACKLES NOTED UPON AUSCULTATION. ABDOMEN SOFT, NON-TENDER W/ ACTIVE BS. PT HAS HAD MULTIPLE SMALL BM'S THIS SHIFT. SPECIMEN WAS COLLECTED PER MD ORDERS. PT HAS HAD ISSUES W/ URGENCY AND FREQUENCY WHEN URINATING THIS SHIFT, WHEN SHE DOES VOID, THE AMOUNT IS MINIMAL, ONLY 10-50 CC @ A TIME. UA HAS BEEN ORDERED BY AND COLLECTED BY STAFF. RLE REMAINS WRAPPED PER DR TELLES. PT C/O MIN PAIN W/ ACTIVITY. DOES WELL AMBULATING W/ WALKER AND STANDBY ASSISTANCE. RLE ELEVATED W/ PILLOW AND ICE PACKS APPLIED PER VERBAL ORDER FROM DR TELLES. DRESSING TO CHEST WALL FROM LOOP RECORDER IS C/D/I. NO COMPLAINTS VOICED. IS CURRENTLY LYING IN BED, NO NEEDS VOICED. CALL JESSE W/IN REACH.
[2020-08-03 15:54] LABS: Microscopic, Urine URINE MICROSCOPIC (MICROSCOPIC)
[2020-08-03 16:06] LABS: Appearance,Urine SL CLOUDY (Clear); Blood, Urine 2+ (Negative); Color,Urine YELLOW (Yellow); Glucose,Urine (UA) Negative (Negative); Ketones,Urine TRACE (Negative); Leukocyte Esterase,Urine TRACE (Negative); Nitrate,Urine Negative (Negative); Protein,Urine TRACE (Negative); Specific Gravity, Urine >= 1.030 (1.005-1.030); Urobilinogen,Urine 0.2 EU/dl (0.2)
[2020-08-03 16:10] LABS: Amorphous Sediment,Urine 2+ /lpf; Bacteria,Urine 3+ /lpf
[2020-08-03 16:12] LABS: Bilirubin,Urine Negative (Negative)
[2020-08-04] VITALS (12 sets, daily range): BP systolic 135–157; BP diastolic 77–93; PULSE 63–90; RESP 15–18; TEMP 36.3–36.9; O2SAT 93–98; BMI 30.7
--- NOTE | 2020-08-04 06:46 | PC.NURSE ---
pt has had no acute changes. nausea noted when azithromycin given. prn order obtained and given. iv infusing per order. vss. call light in reach. ambulates with walker to bathroom and tolerates well. will continue to monitor
[2020-08-04 07:00] LABS: Basophils # 0.1 K/mm3 (0-0.2); Basophils % 0.3 % (0.1-2.0); Eosinophils # 0.2 K/mm3 (0.0-0.4); Eosinophils % 1.5 % (0.1-12.0); Hematocrit 36.3 % (37.0-47.0); Hemoglobin 11.2 g/dL (12.2-16.2); Lymphocytes # 1.2 K/mm3 (0.7-4.5); Lymphocytes % 7.8 % (10-50); Mean Corpuscular Hemoglobin 27.2 pg (27.0-31.2); Mean Corpuscular Volume 87.8 fl (81-99); Mean Platelet Volume 8.5 fl (7.4-10.4); Monocytes # 0.6 K/mm3 (0.1-1.0); Monocytes % 3.9 % (1.7-9.3); Neutrophils # 12.9 K/mm3 (1.8-7.8); Neutrophils % 86.5 % (37.0-80.0); Platelet Count 410 K/mm3 (142-424); Red Blood Count 4.14 M/mm3 (4.20-5.40); Red Cell Distribution Width 14.7 % (11.5-17.5)
[2020-08-04 07:02] LABS: MANUAL DIFFERENTIAL MANUAL DIFFERENTIAL (MANUAL DIFF)
[2020-08-04 07:17] LABS: Anion Gap 9.7 mEq/L (5-15); Blood Urea Nitrogen 14 mg/dl (7-17); Calcium 7.4 mg/dl (8.4-10.2); Carbon Dioxide 24 mmol/L (22.0-30.0); Chloride 115 mmol/L (98-107); Creatinine Clearance Estimated 61 mL/min (50-200); Estimated Glomerular Filt Rate 46 ml/min (>60); GFR (African American) 55 ML/MIN (>60); Glucose 91 mg/dl (74-100); Potassium 3.7 mmoL/L (3.5-5.1); Sodium 145 mmol/L (136-145)
--- NOTE | 2020-08-04 07:42 | HMH.PNCARD ---
Subjective Date: 08/04/20 Time: 07:30 Principal diagnosis: Pneumonia Interval history: 60-year-old female presented to ED on 08/01/2020 with increased shortness of breath. Patient was diagnosed with bilateral pneumonia. Patient was also noted to have what resembled supraventricular tachycardia on the phototypesetting equipment monitor in the ED. Heart rate was noted to be in the 160s to 180s at that time. Patient does have a loop recorder in place but is at end-of-life battery which it has been for the last 6 months. Loop recorder was replaced. Patient states the loop recorder site noted with dressing that is dry and intact. Dressing will need to stay on for 1 week or until follow-up with cardiology. Patient does continue to complain of pain at the loop recorder site. Toradol 10 mg p.o. every 6 hours as needed for pain. Patient is noted to be high risk for PE due to the recent tib-fib fracture. Pt was prescribed Xarelto 10mg daily via PCP or Ortho due to the risk of developing a pulmonary emboli. Chest x-ray was performed which revealed bilateral pneumonia the left more extensive than the right lobe. Chest CTA was also performed noted to have no evidence of pulmonary emboli, bilateral pneumonia was noted, hiatal hernia and multiple lesions of the liver hemoangiomas. Pneumonia is currently being treated with antibiotics and managed by PCP and pulmonology. Patient is resting quietly in bed. Denies chest pain, tightness or pressure. Patient is noted to be on room air with a pulse ox of 94%. No swelling noted of the lower extremity. Right leg is noted as being wrapped with cast on. Fracture tib-fib is being managed by Ortho. Last known cath was in 2018 which revealed mild proximal LAD. Last echocardiogram which was performed earlier this month revealed EF 55% with mild aortic regurgitation. Patient states her shortness of breath is slightly better. Patient is currently being treated with antibiotics per the management of PCP due to pneumonia. No swelling noted of the lower extremities. Patient denies dizziness. Patient denies complain of palpitations. Patient is noted to be on the phototypesetting equipment monitor at this time with a heart rate of 87bpm. Blood pressure is stable. Patient states that she feels no better. Iron studies were performed. Iron was noted as low. This will be managed by PCP. Vitamin B12 229 which is low. This is being managed by PCP. Patient noted to have hypokalemia. Potassium p.o. was given for PCP. Patient is complaining of being nauseated with no vomiting noted. Will defer this to PCP. Patient states she just feels that she is not getting any better. Echocardiogram revealed EF of 55% with no regional wall abnormality. Right ventricular systolic function is normal. There is no evidence of atrial septal defect. There is mild mitral regurgitation. There is mild tricuspid regurgitation. The RV systolic pressure is elevated at 35-40 which is mild. Moderate aortic regurgitation noted. Mild pulmonic valvular regurgitation noted. There is anterior space, not totally echo-free, suggestive of epicardial fat. Continue to monitor patient's status. Loop recorder site dressing dry and intact. Recommend to leave this dressing on until follow-up with cardiology in 1 week in the office. Will defer management of nausea to PCP. Management of fractured tib-fib to Ortho. We will continue the Toradol 10 mg every 6 hours as needed for pain. Management of low H&H and iron studies to PCP. Please notify cardiology of any changes in patient status. Patient does appear to be slightly anxious this morning. Will defer management of anxiety to PCP. Thank you for allowing cardiology to participate in the care of this patient. Exam Vital signs and Labs for Last 24 Hours: Temp Pulse Resp BP Pulse Ox 98.0 F 70 16 147/88 H 96 08/04/20 03:21 08/04/20 04:00 08/04/20 03:21 08/04/20 03:21 08/04/20 03:21 Laboratory Results - last 24 hr
--- NOTE | 2020-08-04 09:15 | HMH.ACPN2 ---
Internal Medicine - PN: Subj *Date: 08/04/20 *Time: 09:22 Interval history: 60-year-old female patient resting quietly in bed she reports she still feels nauseated. White blood cell count down to 15, oxygenation 96% on room air. She denies any shortness of breath or chest pain. Exam Vital signs and Labs for Last 24 Hours: Temp Pulse Resp BP Pulse Ox 97.4 F L 80 16 135/92 H 96 08/04/20 07:44 08/04/20 07:44 08/04/20 07:44 08/04/20 07:44 08/04/20 07:44 Laboratory Results - last 24 hr 08/03/20 07:22: Total Counted 100, Neutrophils % (Manual) 92 H, Lymphocytes % (Manual) 4 L, Monocytes % (Manual) 4, Platelet Estimate Normal, RBC Morphology Normal 08/03/20 10:45: Stool Occult Blood Positive A 08/03/20 14:45: Urine Color Yellow, Urine Appearance Sl cloudy, Urine pH 6.0, Ur Specific [place] >= 1.030, Urine Protein Trace, Urine Glucose (UA) Negative, Urine Ketones Trace, Urine Blood 2+, Urine Nitrate Negative, Urine Bilirubin Negative, Urine Urobilinogen 0.2, Ur Leukocyte Esterase Trace, Urine RBC 3-5, Urine WBC 5-10, Ur Squamous Epith Cells 5-10, Amorphous Sediment 2+, Urine Bacteria 3+ 08/04/20 06:28: WBC 15.0 H D, RBC 4.14 L, Hgb 11.2 L, Hct 36.3 L, MCV 87.8, MCH 27.2, MCHC 31.0 L, RDW 14.7, Plt Count 410, MPV 8.5, Neut % (Auto) 86.5 H, Lymph % (Auto) 7.8 L, [place] % (Auto) 3.9, Eos % (Auto) 1.5, Baso % (Auto) 0.3, Neut # (Auto) 12.9 H, Lymph # (Auto) 1.2, [place] # (Auto) 0.6, Eos # (Auto) 0.2, Baso # (Auto) 0.1 08/04/20 06:28: Sodium 145, Potassium 3.7, Chloride 115 H, Carbon Dioxide 24, Anion Gap 9.7, BUN 14, Creatinine 1.20 H D, Estimated Creat Clear 61, Estimated GFR 46 L, Est GFR ( Amer) 55 L D, Glucose 91, Calcium 7.4 L I & O for Last 24 hours: Intake & Output 08/01/20 08/02/20 08/03/20 08/04/20 23:59 23:59 23:59 23:59 Intake Total 2950 / 2950 2753 / 2753 545 / 895 1240 / 1240 Output Total 500 / 500 400 / 400 200 / 200 Balance 2450 / 2450 2753 / 2753 145 / 495 1040 / 1040 Weight 160 lb 7 oz 168 lb 4.99 oz 173 lb 173 lb 4 oz Microbiology Reports for the Last 24 Hours: Microbiology 08/01/20 04:45 Blood Blood Culture - Preliminary NO GROWTH AFTER 48 HOURS 08/01/20 04:45 Blood Blood Culture - Preliminary NO GROWTH AFTER 48 HOURS - Constitutional no acute distress - *Routine HEENT Exam Head: Present: normocephalic Eye: Present: EOMI ENT: Present: mucous membranes moist - *Routine Neck Exam Present: trachea midline. Absent: tracheal deviation - *Routine Respiratory Exam Present: crackles Comments: Crackles RLL - *Routine Cardiovascular Exam Present: RRR - *Routine Abdominal Exam Present: soft, normoactive bowel sounds. Absent: tenderness, obese - *Routine Extremities Exam Present: edema, pulses intact. Absent: cyanosis, full ROM, calf tenderness - *Routine Skin Exam Present: dry, warm, wounds. Absent: intact, erythema Comments: Sutures to right midline knee intact edges well approximated Wrap to right lower extremity clean dry and intact - *Routine Neurological Exam Present: alert, oriented X3. Absent: altered mental status - Routine Psychiatric Exam Present: normal affect, normal thought process. Absent: auditory hallucinations, visual hallucinations Assessment and Plan (1) Sepsis Status: Acute Category: Medical Code(s): A41.9 - Sepsis, unspecified organism (2) Pneumonia Status: Acute Qualifiers: Pneumonia type: aspiration pneumonia Aspiration pneumonia type: unspecified Laterality: bilateral Lung location: lower lobe of lung Qualified Code(s): J69.0 - Pneumonitis due to inhalation of food and vomit Category: Medical Code(s): J18.9 - Pneumonia, unspecified organism (3) SOB (shortness of breath) Status: Acute Category: Medical Code(s): R06.02 - Shortness of breath (4) Dyspnea Status: Acute Qualifiers: Dyspnea type: dyspnea on exertion Qualified Code(s)
--- NOTE | 2020-08-04 09:54 | HMH.PULMPN ---
Internal Medicine - PN: Subj *Date: 08/04/20 *Time: 09:54 Interval history: No acute respiratory vents overnight. Patient remained on room air. Exam - Constitutional Constitutional:: Present: no acute distress, comfortable - HENMT Exam HENMT: Present: atraumatic - Eye Exam Eyes:: Present: eyelids normal - Neck Exam Neck:: Present: thyroid normal, no lymphadenopathy - Respiratory Exam Respiratory:: Present: able to speak in complete sentences, no respiratory distress, normal respiratory effort, crackles - Cardiovascular Exam Cardiac:: Present: S1, S2 - GI Exam GI:: Present: soft Comments: Tenderness over the left lower quadrant abdomen noted with mild guarding. No rebound noted. Bowel sounds normal. - Skin Exam Skin: Present: warm, no rash - Neurological Exam Neurological: Present: alert, awake, normal cognition - Extremities Exam Extremities: Present: no cyanosis, no clubbing Assessment and Plan (1) Sepsis Status: Acute Category: Medical Code(s): A41.9 - Sepsis, unspecified organism (2) Pneumonia Status: Acute Qualifiers: Pneumonia type: aspiration pneumonia Aspiration pneumonia type: unspecified Laterality: bilateral Lung location: lower lobe of lung Qualified Code(s): J69.0 - Pneumonitis due to inhalation of food and vomit Category: Medical Code(s): J18.9 - Pneumonia, unspecified organism (3) SOB (shortness of breath) Status: Acute Category: Medical Code(s): R06.02 - Shortness of breath (4) Dyspnea Status: Acute Qualifiers: Dyspnea type: dyspnea on exertion Qualified Code(s): R06.00 - Dyspnea, unspecified Category: Medical Code(s): R06.00 - Dyspnea, unspecified (5) Lumbar facet arthropathy Status: Acute Category: Medical Code(s): M47.816 - Spondylosis without myelopathy or radiculopathy, lumbar region (6) Sinus tachycardia Status: Acute Category: Medical Code(s): R00.0 - Tachycardia, unspecified (7) Tachycardia Status: Acute Category: Medical Code(s): R00.0 - Tachycardia, unspecified (8) GERD (gastroesophageal reflux disease) Status: Chronic Qualifiers: Esophagitis presence: esophagitis presence not specified Qualified Code(s): K21.9 - Gastro-esophageal reflux disease without esophagitis Category: Medical Code(s): K21.9 - Gastro-esophageal reflux disease without esophagitis (9) HTN (hypertension) Status: Chronic Qualifiers: Hypertension type: essential hypertension Qualified Code(s): I10 - Essential (primary) hypertension Category: Medical Code(s): I10 - Essential (primary) hypertension (10) Hypothyroidism Status: Chronic Qualifiers: Hypothyroidism type: acquired Qualified Code(s): E03.9 - Hypothyroidism, unspecified Category: Medical Code(s): E03.9 - Hypothyroidism, unspecified (11) THAI (obstructive sleep apnea) Status: Chronic Category: Medical Code(s): G47.33 - Obstructive sleep apnea (adult) (pediatric) (12) Fracture of shaft of right tibia with routine healing Status: Acute Category: Medical Code(s): S82.201D - Unspecified fracture of shaft of right tibia, subsequent encounter for closed fracture with routine healing (13) Closed fracture of ankle with routine healing Status: Acute Qualifiers: Laterality: right Qualified Code(s): S82.891D - Other fracture of right lower leg, subsequent encounter for closed fracture with routine healing Category: Medical Code(s): S82.899D - Other fracture of unspecified lower leg, subsequent encounter for closed fracture with routine healing - Assessment and plan all Dx Assessment and Plan for all problems:: #Healthcare associated pneumonia: 60-year-old never smoker no prior respiratory complaints carries a diagnosis of asthma, denies any family history of asthma but recently started using Breo inhaler, recurrent sinus issues presented with acute onset of chest pain and shortness of breath and
--- NOTE | 2020-08-04 10:17 | HMH.ACPN ---
Internal Medicine - PN: Subj *Date: 08/04/20 *Time: 10:17 Exam Vital signs and Labs for Last 24 Hours: Temp Pulse Resp BP Pulse Ox 97.4 F L 77 16 135/92 H 96 08/04/20 07:44 08/04/20 09:43 08/04/20 07:44 08/04/20 07:44 08/04/20 09:43 Laboratory Results - last 24 hr 08/03/20 07:22: Total Counted 100, Neutrophils % (Manual) 92 H, Lymphocytes % (Manual) 4 L, Monocytes % (Manual) 4, Platelet Estimate Normal, RBC Morphology Normal 08/03/20 10:45: Stool Occult Blood Positive A 08/03/20 14:45: Urine Color Yellow, Urine Appearance Sl cloudy, Urine pH 6.0, Ur Specific [place] >= 1.030, Urine Protein Trace, Urine Glucose (UA) Negative, Urine Ketones Trace, Urine Blood 2+, Urine Nitrate Negative, Urine Bilirubin Negative, Urine Urobilinogen 0.2, Ur Leukocyte Esterase Trace, Urine RBC 3-5, Urine WBC 5-10, Ur Squamous Epith Cells 5-10, Amorphous Sediment 2+, Urine Bacteria 3+ 08/04/20 06:28: WBC 15.0 H D, RBC 4.14 L, Hgb 11.2 L, Hct 36.3 L, MCV 87.8, MCH 27.2, MCHC 31.0 L, RDW 14.7, Plt Count 410, MPV 8.5, Neut % (Auto) 86.5 H, Lymph % (Auto) 7.8 L, [place] % (Auto) 3.9, Eos % (Auto) 1.5, Baso % (Auto) 0.3, Neut # (Auto) 12.9 H, Lymph # (Auto) 1.2, [place] # (Auto) 0.6, Eos # (Auto) 0.2, Baso # (Auto) 0.1 08/04/20 06:28: Sodium 145, Potassium 3.7, Chloride 115 H, Carbon Dioxide 24, Anion Gap 9.7, BUN 14, Creatinine 1.20 H D, Estimated Creat Clear 61, Estimated GFR 46 L, Est GFR ( Amer) 55 L D, Glucose 91, Calcium 7.4 L I & O for Last 24 hours: Intake & Output 08/01/20 08/02/20 08/03/20 08/04/20 23:59 23:59 23:59 23:59 Intake Total 2950 / 2950 2753 / 2753 545 / 895 1240 / 1240 Output Total 500 / 500 400 / 400 200 / 200 Balance 2450 / 2450 2753 / 2753 145 / 495 1040 / 1040 Weight 72.773 kg 76.345 kg 78.471 kg 78.585 kg Assessment and Plan (1) Sepsis Status: Acute Category: Medical Code(s): A41.9 - Sepsis, unspecified organism (2) Pneumonia Status: Acute Qualifiers: Pneumonia type: aspiration pneumonia Aspiration pneumonia type: unspecified Laterality: bilateral Lung location: lower lobe of lung Qualified Code(s): J69.0 - Pneumonitis due to inhalation of food and vomit Category: Medical Code(s): J18.9 - Pneumonia, unspecified organism (3) SOB (shortness of breath) Status: Acute Category: Medical Code(s): R06.02 - Shortness of breath (4) Dyspnea Status: Acute Qualifiers: Dyspnea type: dyspnea on exertion Qualified Code(s): R06.00 - Dyspnea, unspecified Category: Medical Code(s): R06.00 - Dyspnea, unspecified (5) Lumbar facet arthropathy Status: Acute Category: Medical Code(s): M47.816 - Spondylosis without myelopathy or radiculopathy, lumbar region (6) Sinus tachycardia Status: Acute Category: Medical Code(s): R00.0 - Tachycardia, unspecified (7) Tachycardia Status: Acute Category: Medical Code(s): R00.0 - Tachycardia, unspecified (8) GERD (gastroesophageal reflux disease) Status: Chronic Qualifiers: Esophagitis presence: esophagitis presence not specified Qualified Code(s): K21.9 - Gastro-esophageal reflux disease without esophagitis Category: Medical Code(s): K21.9 - Gastro-esophageal reflux disease without esophagitis (9) HTN (hypertension) Status: Chronic Qualifiers: Hypertension type: essential hypertension Qualified Code(s): I10 - Essential (primary) hypertension Category: Medical Code(s): I10 - Essential (primary) hypertension (10) Hypothyroidism Status: Chronic Qualifiers: Hypothyroidism type: acquired Qualified Code(s): E03.9 - Hypothyroidism, unspecified Category: Medical Code(s): E03.9 - Hypothyroidism, unspecified (11) THAI (obstructive sleep apnea) Status: Chronic Category: Medical Code(s): G47.33 - Obstructive sleep apnea (adult) (pediatric) (12) Fracture of shaft of right tibia with routine healing Status: Acute Category: Medical Code(s): S82.201D - Unspecified
[2020-08-04 11:54] LABS: Lymphocytes % 9 % (10-50); Monocytes % 3 % (2-9); Neutrophils % 88 % (42-76); Total Cells Counted 100
[2020-08-04 11:55] LABS: Platelet Estimate Slight Increase; RBC Morphology Normal
--- NOTE | 2020-08-04 16:59 | PC.NURSE ---
Received report on pt. PRN zofran given r/t nausea. CB in reach. Pt in room and awake and alert sitting up in bed.
--- NOTE | 2020-08-04 18:32 | PC.NURSE ---
No acute changes since receiving report of pt. VSS.
--- NOTE | 2020-08-04 19:25 | PC.NURSE ---
Did offer pt sprite and or crackers and she denied.
[2020-08-05] VITALS (10 sets, daily range): BP systolic 134–154; BP diastolic 84–92; PULSE 60–80; RESP 15–18; TEMP 36.6–36.9; O2SAT 93–97; BMI 30.9
--- NOTE | 2020-08-05 03:07 | PC.NURSE ---
no acute changes. pt reports nausea and prn meds given. pt states medication making her nausea and has refused some medications related to this. ambulates with walker. iv patent and infusing. vss. call light in reach. will continue to monitor pt condition.
[2020-08-05 07:31] LABS: Anion Gap 13.3 mEq/L (5-15); Blood Urea Nitrogen 12 mg/dl (7-17); Carbon Dioxide 19 mmol/L (22.0-30.0); Chloride 115 mmol/L (98-107); Creatinine Clearance Estimated 61 mL/min (50-200); Estimated Glomerular Filt Rate 46 ml/min (>60); GFR (African American) 55 ML/MIN (>60); Glucose 79 mg/dl (74-100); Potassium 3.3 mmoL/L (3.5-5.1); Sodium 144 mmol/L (136-145)
[2020-08-05 07:52] LABS: Calcium 6.9 mg/dl (8.4-10.2)
[2020-08-05 07:59] LABS: Basophils % 0.4 % (0.1-2.0); Eosinophils # 0.2 K/mm3 (0.0-0.4); Eosinophils % 2.3 % (0.1-12.0); Hematocrit 35.5 % (37.0-47.0); Lymphocytes # 1.2 K/mm3 (0.7-4.5); Lymphocytes % 13.8 % (10-50); Mean Corpuscular Hemoglobin 27.4 pg (27.0-31.2); Mean Corpuscular Volume 88.4 fl (81-99); Mean Platelet Volume 8.5 fl (7.4-10.4); Monocytes # 0.5 K/mm3 (0.1-1.0); Monocytes % 6.1 % (1.7-9.3); Neutrophils # 6.8 K/mm3 (1.8-7.8); Neutrophils % 77.4 % (37.0-80.0); Platelet Count 371 K/mm3 (142-424); Red Blood Count 4.02 M/mm3 (4.20-5.40); Red Cell Distribution Width 14.8 % (11.5-17.5); White Blood Count 8.7 K/mm3 (4.8-10.8)
--- NOTE | 2020-08-05 09:38 | HMH.DCSUM ---
General - General Admission date:: 08/01/20 Discharge date: 08/05/20 HPI HPI: Presents for shortness of breath. 60-year-old female presenting for shortness of breath. Patient has past medical history of COPD, not smoker, patient had a recent tib-fib fracture and has been in rehab, patient states she has not been on any blood thinners recently. No history of PE or DVT. Patient presents for sudden onset chest pain and shortness of breath that woke her up from sleep, patient called EMS and was brought here for further work-up. Per EMS on their arrival patient was satting 80% on room air, patient states that she was doing okay in rehab for the past several days up until now. Patient denies any abdominal pain, nausea, vomiting, fever, chills. Patient a recent Covid test that was negative On arrival 60-year-old female presenting for shortness of breath. Patient on arrival had vital signs are significant for tachycardia and hypoxemia, patient tachycardic to 180, hypoxemic to 80. Patient was started on nonrebreather, EKG was obtained, appears to be supraventricular tachycardia, unable to certain if P waves are present patient on metoprolol at home therefore patient is given 5 mg of metoprolol, this demonstrated improvement in heart rate, repeat EKG does demonstrate sinus tachycardia, bedside ultrasound was performed, difficult to have good windows, ejection fraction grossly looks adequate. Patient had CT PE ordered as she is high risk for pulmonary embolism, did recently have immobilization of the right lower extremity. Patient is not having any fever or other symptoms. Patient was emergently taken to CT scanner for CT PE, this did not demonstrate a PE but did demonstrate bilateral lower lobe opacities consistent with pneumonia. This could be aspiration versus hospital-acquired, patient was tried on vancomycin azithro and Zosyn for coverage. B work largely nonactionable, D-dimer elevated, with a slightly decreased white blood cell count, this could be in the setting of infection such as coronavirus 19. Swab was sent, case discussed with medicine who agreed to admit the patient for further work-up patient was given 2 L bolus of lactated Ringer's here. Cap refill was improved and stable on repeat assessment Above is from ER narrative Elements of sepsis include elevated RR, tachycardia,low WBC, and elevated lactate. S/p orif tib-fib fracture right, prolonged immobility. Dr Orta cared for her. Was rehabbing at [facility]. Cannot relay an aspiration event. Suffers from depression historically, demonstrates a flat affect today. Hospital Course Hospital Course: Laboratory Tests 08/01/20 08/01/20 08/01/20 03:05 03:05 03:05 WBC 3.3 L RBC 3.78 L Hgb 10.2 L Hct 33.4 L MCV 88.5 MCH 27.1 MCHC 30.6 L RDW 13.9 Plt Count 556 H MPV 8.2 Neut % (Auto) 73.9 Lymph % (Auto) 23.3 [place] % (Auto) 1.7 Eos % (Auto) 0.7 Baso % (Auto) 0.3 Neut # (Auto) 2.4 Lymph # (Auto) 0.8 [place] # (Auto) 0.1 Eos # (Auto) 0.0 Baso # (Auto) 0.0 Total Counted Neutrophils % (Manual) Band Neutrophils % Lymphocytes % (Manual) Monocytes % (Manual) Platelet Estimate RBC Morphology Retic Count (auto) PT 10.6 INR 0.89 L APTT 21.9 L Specimen Source O2 % ABG pH ABG pCO2 ABG pO2 ABG HCO3 ABG Total CO2 ABG O2 Saturation ABG Base Excess [place] Test Sodium 145 Potassium 3.2 L Chloride 112 H Carbon Dioxide 20 L Anion Gap 16.2 H BUN 12 Creatinine 0.70 Estimated Creat Clear 62 Estimated GFR 85 Est GFR ( Amer) 103 Glucose 141 H Lactate Calcium 9.5 Magnesium Iron TIBC Iron Saturation Total Bilirubin 0.6 AST 32 ALT 18 Alkaline Phosphatase 92 Troponin I 0.07 H NT-Pro-B Natriuret Pep 678 H Total Protein 6.9 Albumin 3.4 L Globulin 3.5 H
--- NOTE | 2020-08-05 09:47 | HMH.PULMPN ---
Internal Medicine - PN: Subj *Date: 08/05/20 *Time: 09:47 Interval history: No acute respite events overnight. Patient continued to be on room air. Exam - Constitutional Constitutional:: Present: no acute distress, comfortable - HENMT Exam HENMT: Present: normocephalic, atraumatic - Eye Exam Eyes:: Present: eyelids normal - Neck Exam Neck:: Present: thyroid normal - Respiratory Exam Respiratory:: Present: able to speak in complete sentences, lungs clear, normal breath sounds, no respiratory distress, normal respiratory effort - Cardiovascular Exam Cardiac:: Present: S1, S2 - GI Exam GI:: Present: soft, no hepatosplenomegaly - Skin Exam Skin: Present: warm, no rash - Neurological Exam Neurological: Present: alert, awake, normal cognition - Extremities Exam Extremities: Present: no cyanosis, no clubbing - Psychiatric Exam Psychiatric: Present: normal affect Assessment and Plan (1) Sepsis Status: Acute Category: Medical Code(s): A41.9 - Sepsis, unspecified organism (2) Pneumonia Status: Acute Qualifiers: Qualified Code(s): J69.0 - Pneumonitis due to inhalation of food and vomit Category: Medical Code(s): J18.9 - Pneumonia, unspecified organism (3) SOB (shortness of breath) Status: Acute Category: Medical Code(s): R06.02 - Shortness of breath (4) Dyspnea Status: Acute Qualifiers: Qualified Code(s): R06.00 - Dyspnea, unspecified Category: Medical Code(s): R06.00 - Dyspnea, unspecified (5) Lumbar facet arthropathy Status: Acute Category: Medical Code(s): M47.816 - Spondylosis without myelopathy or radiculopathy, lumbar region (6) Sinus tachycardia Status: Acute Category: Medical Code(s): R00.0 - Tachycardia, unspecified (7) Tachycardia Status: Acute Category: Medical Code(s): R00.0 - Tachycardia, unspecified (8) GERD (gastroesophageal reflux disease) Status: Chronic Qualifiers: Qualified Code(s): K21.9 - Gastro-esophageal reflux disease without esophagitis Category: Medical Code(s): K21.9 - Gastro-esophageal reflux disease without esophagitis (9) HTN (hypertension) Status: Chronic Qualifiers: Qualified Code(s): I10 - Essential (primary) hypertension Category: Medical Code(s): I10 - Essential (primary) hypertension (10) Hypothyroidism Status: Chronic Qualifiers: Qualified Code(s): E03.9 - Hypothyroidism, unspecified Category: Medical Code(s): E03.9 - Hypothyroidism, unspecified (11) THAI (obstructive sleep apnea) Status: Chronic Category: Medical Code(s): G47.33 - Obstructive sleep apnea (adult) (pediatric) (12) Fracture of shaft of right tibia with routine healing Status: Acute Category: Medical Code(s): S82.201D - Unspecified fracture of shaft of right tibia, subsequent encounter for closed fracture with routine healing (13) Closed fracture of ankle with routine healing Status: Acute Qualifiers: Qualified Code(s): S82.891D - Other fracture of right lower leg, subsequent encounter for closed fracture with routine healing Category: Medical Code(s): S82.899D - Other fracture of unspecified lower leg, subsequent encounter for closed fracture with routine healing - Assessment and plan all Dx Assessment and Plan for all problems:: #Healthcare associated pneumonia: 60-year-old never smoker no prior respiratory complaints carries a diagnosis of asthma, denies any family history of asthma but recently started using Breo inhaler, recurrent sinus issues presented with acute onset of chest pain and shortness of breath and CT showed bilateral pneumonia predominantly significant in the left lower lobe. Respiratory viral panel along with COVID-19 PCR testing negative. Patient started on broad-spectrum antibiotic including vancomycin Zosyn clindamycin and azithromycin on admission. Lactate slightly elevated, normalized on repeat from admission. Gas on admission reviewe
[2020-08-07 22:21] LABS: MRSA DNA PCR NEGATIVE
== END 2020-08-05 17:32 | disposition home health service (06) | DRG 853 ==
LOC: ER 03:37 → 2ND 04:19
PROVIDERS: Family Medicine; Internal Medicine; Internal Medicine Pulmonary Disease; Nurse Practitioner Family; Urology; Admitting Provider Internal Medicine Adolescent Medicine; Emergency Provider Emergency Medicine; PCP Emergency Medicine; Visit Provider Emergency Medicine
PROC: 0JH602Z Insertion of Monitoring Device into Chest Subcutaneous Tissue and Fascia, Open Approach (ICD-10-PCS; principal; 2020-08-02 10:00)
DX: J18.9 Pneumonia, unspecified organism (principal); Z79.890 Hormone replacement therapy; Z79.899 Other long term (current) drug therapy; S82.241D Displaced spiral fracture of shaft of right tibia, subsequent encounter for closed fracture with routine healing; S82.61XD Displaced fracture of lateral malleolus of right fibula, subsequent encounter for closed fracture with routine healing; Z91.81 History of falling; J44.9 Chronic obstructive pulmonary disease, unspecified; I25.10 Atherosclerotic heart disease of native coronary artery without angina pectoris; E03.9 Hypothyroidism, unspecified; Z88.8 Allergy status to other drugs, medicaments and biological substances; A41.9 Sepsis, unspecified organism; J69.0 Pneumonitis due to inhalation of food and vomit; I10 Essential (primary) hypertension; M47.816 Spondylosis without myelopathy or radiculopathy, lumbar region; Z79.51 Long term (current) use of inhaled steroids; Z45.09 Encounter for adjustment and management of other cardiac device
CPT/HCPCS: 33285; 36415; 71045; 71046; 71275; 80048; 80053; 80202; 81001; 82272; 82607; 82746; 82803; 83540; 83550; 83605; 83735; 83880; 84439; 84443; 84484; 85007; 85014; 85018; 85025; 85044; 85048; 85049; 85610; 85730; 86850; 87040; 87081; 87086; 87581; 87633; 87641; 87798; 92610; 93005; 93306; 94640; 96365; 96366; 96367; 96375; 99285; G0328; J0456; J2405; J2543; J3370; P9016; Q9967

== ENCOUNTER → 2020-08-11 15:01 | Outpatient (CLI) | payer MEDICARE, MEDICAID, SELFPAY ==
--- NOTE | 2020-08-11 15:09 | XR_ITS ---
PROCEDURE: XR TIBIA FIBULA RT 2V CLINICAL INDICATION: sp orif lt ankle/ IM nailing; in splint COMPARISON: CR XR TIBIA FIBULA RT 2V from 07/20/2020 FINDINGS: Status post ORIF distal tib fib fracture. I am jose a as been placed with good alignment of the fracture of the distal shaft of the tibia with only minimal lateral displacement of the distal fracture fragment. Lateral fibular bone plate is present with good alignment. There is a posterior splint in place. IMPRESSION: Good alignment status post ORIF distal tib fib fracture. Dictated by: Diego Kowalski MD 08/11/2020 16:20 Diego Kowalski MD in [place] 08/11/2020 16:20
--- NOTE | 2020-08-11 15:09 | XR_ITS ---
PROCEDURE: XR ANKLE RT MIN 3V CLINICAL INDICATION: sp orif lt ankle; in splint Follow-up surgery COMPARISON: CR ANKCMLT XR ankle LT min 3V from 11/09/2017 CR ANKCMLT XR ankle LT min 3V from 12/07/2017 CR ANKCMLT XR ankle LT min 3V from 02/03/2018 CR XR ANKLE RT 2V from 07/20/2020 CR XR TIBIA FIBULA RT 2V from 08/11/2020 FINDINGS: Status post ORIF distal tib fib fracture. Intramedullary jose a as been placed with good alignment of the fracture of the distal shaft of the tibia with only minimal lateral displacement of the distal fracture fragment. Lateral fibular bone plate is present with good alignment. There is a posterior splint in place. IMPRESSION: Good alignment status post ORIF distal tib fib fracture. Dictated by: Diego Kowalski MD 08/11/2020 16:30 Diego Kowalski MD in [facility] 08/11/2020 16:30
== END ==
PROVIDERS: PCP Physician Assistant; Visit Provider Orthopaedic Surgery
DX: Z09 Encounter for follow-up examination after completed treatment for conditions other than malignant neoplasm (principal); S82.201D Unspecified fracture of shaft of right tibia, subsequent encounter for closed fracture with routine healing; S82.891D Other fracture of right lower leg, subsequent encounter for closed fracture with routine healing
CPT/HCPCS: 73590; 73610

== ENCOUNTER 2020-08-16 12:49 | Day surgery (SDC) | payer MEDICARE, MEDICAID, SELFPAY ==
[2020-08-16 12:57] VITALS: BP 131/81; PULSE 100; RESP 18; TEMP 36.8; O2SAT 98; BMI 26.7
[2020-08-16 13:30] VITALS: BP 148/98; PULSE 105; RESP 18
[2020-08-16 13:31] VITALS: BP 147/92; PULSE 102; RESP 18; O2SAT 99
--- NOTE | 2020-08-16 13:35 | HMH.PMPROC ---
- Procedure Date: 08/16/20 Time: 13:35 Anesthesiologist:: Erica Benjamin APRN Complications:: None Pre-procedure Diagnosis:: Degenerative disc disease lumbar spine lumbar radiculopathy back pain Post-procedure Diagnosis:: Same Indications for Procedure:: Patient is a pleasant 60-year-old white female who presents today for follow-up and intrathecal pain pump refill and reprogram. She is currently at 0.9 mg of morphine a day. She like a slight increase. She is recently broken her right foot and is doing rehabilitation. I discussed with her that if they feel that she needs oral narcotic medication during this time that they are welcome to prescribe that to her it will not interfere with her pain pump. Also our offices are available for consultation in regards to the matter. Patient rates her pain today in her back 4 out of 10. Patient's Daniele #[id number] reviewed and appropriate she is on Lyrica 150 mg 1 p.o. twice daily. She denies side effects to her medications. Procedure Details:: Informed consent was obtained and the risk and benefits of the procedure were explained to the patient. The patient was taken to the procedure room where noninvasive monitoring was placed including noninvasive blood pressure cuff and pulse oximeter. Patient's pump was interrogated. The area over the pump was cleansed with chlorhexidine as a cleansing solution. In sterile fashion the pump was accessed with a 22-gauge needle. Approximately [5] mL's were removed of the pump solution and discarded appropriately. The pump was then refilled with 20 mL's of morphine 5 mg/mL. The needle was withdrawn and a bandage was placed over the puncture site. The infusion rate was reprogrammed to 1 mg/day. The patient tolerated the procedure well. Plan and Disposition:: The patient back at her next intrathecal pain pump refill and reprogram she has been instructed to call the office if she has any issues prior to her next appointment. Dr. Liz has reviewed this note and agrees with this plan of care. This note was dictated using voice recognition software and may contain errors or omissions
[2020-08-16 13:43] VITALS: BP 144/98; PULSE 98; RESP 18; O2SAT 98
== END 2020-08-16 13:44 | disposition home or self-care (01) ==
LOC: SC.PAINP 12:51
PROVIDERS: PCP Physician Assistant; Visit Provider Clinical Nurse Specialist Family Health
DX: M51.16 Intervertebral disc disorders with radiculopathy, lumbar region (principal); Z45.1 Encounter for adjustment and management of infusion pump; E78.5 Hyperlipidemia, unspecified; J44.9 Chronic obstructive pulmonary disease, unspecified; F41.9 Anxiety disorder, unspecified; F32.9 Major depressive disorder, single episode, unspecified; Z86.19 Personal history of other infectious and parasitic diseases; Z85.850 Personal history of malignant neoplasm of thyroid; M81.0 Age-related osteoporosis without current pathological fracture; Z79.890 Hormone replacement therapy; Z79.899 Other long term (current) drug therapy; Z88.8 Allergy status to other drugs, medicaments and biological substances
CPT/HCPCS: 62370

== ENCOUNTER 2020-08-18 15:19 | Outpatient (RCR) | payer MEDICARE, MEDICAID, SELFPAY | END 2020-08-18 16:03 | disposition home or self-care (01) | LOC: PT 15:19 | PROVIDERS: Visit Provider Orthopaedic Surgery | DX: S82.891D Other fracture of right lower leg, subsequent encounter for closed fracture with routine healing (principal); S82.201D Unspecified fracture of shaft of right tibia, subsequent encounter for closed fracture with routine healing | CPT/HCPCS: 97760 ==

== ENCOUNTER → 2020-09-02 10:04 | Outpatient (CLI) | payer MEDICARE, MEDICAID, SELFPAY ==
--- NOTE | 2020-09-02 10:16 | XR_ITS ---
PROCEDURE: XR TIBIA FIBULA RT 2V CLINICAL INDICATION: s/p ORIF RT ankle/ IM tibia COMPARISON: CR XR TIBIA FIBULA RT 2V from 07/20/2020 CR XR TIBIA FIBULA RT 2V from 08/11/2020 FINDINGS: Intramedullary jose a and screw fixation of the right tibia and plate and screw fixation of the distal fibula is noted. Satisfactory alignment of the fracture site. The visualized knee and ankle joints are unremarkable. Bone density is within normal limits. No significant soft tissue abnormality. IMPRESSION: Postsurgical changes with internal fixation of the tibia and fibula. No acute abnormality. Dictated by: Shannan Orta 09/02/2020 16:55 Shannan Orta in [place] 09/02/2020 16:55
== END ==
PROVIDERS: PCP Physician Assistant; Visit Provider Orthopaedic Surgery
DX: S82.201D Unspecified fracture of shaft of right tibia, subsequent encounter for closed fracture with routine healing (principal); S82.899D Other fracture of unspecified lower leg, subsequent encounter for closed fracture with routine healing; Z09 Encounter for follow-up examination after completed treatment for conditions other than malignant neoplasm
CPT/HCPCS: 73590

== ENCOUNTER 2020-10-25 13:07 | Day surgery (SDC) | payer MEDICARE, MEDICAID, SELFPAY ==
[2020-10-25 13:11] VITALS: BP 120/92; PULSE 80; RESP 18; TEMP 36.6; O2SAT 98; BMI 26.6
[2020-10-25 13:28] VITALS: BP 123/81; PULSE 114; RESP 18; O2SAT 96
[2020-10-25 13:31] VITALS: BP 123/81; PULSE 114; RESP 18; O2SAT 96
--- NOTE | 2020-10-25 13:37 | HMH.PMPROC ---
- Procedure Date: 10/25/20 Time: 13:37 Anesthesiologist:: Erica Benjamin APRN Complications:: None Pre-procedure Diagnosis:: Degenerative disc disease lumbar spine lumbar radiculopathy and back pain Post-procedure Diagnosis:: Same Indications for Procedure:: patient is a very pleasant 60-year-old white female who presents today for intrathecal pain pump refill and reprogram she is currently on 1 mg of morphine a day she rates her pain today 9 out of 10. She is having quite a bit of back pain. Patient wants to know if she might be a candidate for surgical intervention. I discussed with her doing some increasing of her intrathecal therapy prior to a surgical intervention. Patient is agreeable. Procedure Details:: Informed consent was obtained and the risk and benefits of the procedure were explained to the patient. The patient was taken to the procedure room where noninvasive monitoring was placed including noninvasive blood pressure cuff and pulse oximeter. Patient's pump was interrogated. The area over the pump was cleansed with chlorhexidine as a cleansing solution. In sterile fashion the pump was accessed with a 22-gauge needle. Approximately 4.5 mL's were removed of the pump solution and discarded appropriately. The pump was then refilled with 20 mL's of morphine 10 mg/mL. The needle was withdrawn and a bandage was placed over the puncture site. The infusion rate was reprogrammed to be increased to 1.25 mg/day. The patient tolerated the procedure well. Plan and Disposition:: We will see the patient back in the office in 2 weeks reassess her symptoms at that time she may need either a medication change her pump or a neurosurgical consultation. She is been instructed to call the office if she has any issues prior to this appointment. Dr. Liz has reviewed this note and agrees with this plan of care. This note was dictated using voice recognition software and may contain errors or omissions
[2020-10-25 13:50] VITALS: BP 122/80; PULSE 77; RESP 18; O2SAT 98
--- NOTE | 2020-10-25 13:50 | XR_ITS ---
PROCEDURE: XR ANKLE RT MIN 3V CLINICAL INDICATION: sp ORIF ankle, IM nailing tibia sx 07/21/20 COMPARISON: CR ANKCMLT XR ankle LT min 3V from 12/07/2017 CR ANKCMLT XR ankle LT min 3V from 02/03/2018 CR XR ANKLE RT 2V from 07/20/2020 CR XR ANKLE RT MIN 3V from 08/11/2020 CR XR TIBIA FIBULA RT 2V from 09/02/2020 CR XR TIBIA FIBULA RT 2V from 10/25/2020 FINDINGS: The splint has been removed. Tibial intramedullary jose a remains in place in good position with healing distal tibial fracture noted. Lateral distal fibular bone plate also present in good position. IMPRESSION: Good alignment status post ORIF tib fib with healing fractures Dictated by: Diego Kowalski MD 10/25/2020 14:20 Diego Kowalski MD in [place] 10/25/2020 14:20
== END 2020-10-25 13:51 | disposition home or self-care (01) ==
PROVIDERS: PCP Physician Assistant; Visit Provider Clinical Nurse Specialist Family Health
DX: M51.16 Intervertebral disc disorders with radiculopathy, lumbar region (principal); Z45.1 Encounter for adjustment and management of infusion pump; G43.909 Migraine, unspecified, not intractable, without status migrainosus; J44.9 Chronic obstructive pulmonary disease, unspecified; I25.10 Atherosclerotic heart disease of native coronary artery without angina pectoris; I10 Essential (primary) hypertension; M79.18 Myalgia, other site; Z88.8 Allergy status to other drugs, medicaments and biological substances
CPT/HCPCS: 62370; 73590; 73610

== ENCOUNTER → 2020-11-08 09:50 | Outpatient (POV) | payer MEDICARE, MEDICAID, SELFPAY ==
[2020-11-08 10:00] VITALS: BP 147/95; PULSE 109; RESP 18; O2SAT 96; BMI 28.3
--- NOTE | 2020-11-08 11:33 | HMH.PMPROC ---
- Procedure Date: 11/08/20 Time: 11:33 Anesthesiologist:: Bridget Zacarias APRN Complications:: None Pre-procedure Diagnosis:: Degenerative disc disease lumbar spine with lumbar radiculopathy symptoms Post-procedure Diagnosis:: Same Indications for Procedure:: Patient is a pleasant 60-year-old white female who presents today for intrathecal pain pump reprogram. She has been treated for degenerative disc disease lumbar spine with lumbar radiculopathy symptoms. Patient is having severe right foot pain. She is also having low back pain. She does have a walking boot on today to her right foot. She says that her pain is an 8 out of 10. Patient says that she wants her intrathecal pump removed. She says is not giving her any relief. Patient reports she is had the pump for nearly a year with no significant relief since having the pump placed. Patient is also requesting a neurosurgical evaluation. Patient has not had an MRI for greater than a year. We discussed she would need to undergo imaging before proceeding with a referral to neurosurgery. She says that she has not gotten any significant relief since having the pump placed. She is currently on morphine at 1.25 mg/day. We discussed increasing the dose. She would like to try this before removal of the intrathecal pain pump. She is continue with home stretching and does try to take anti-inflammatories though she gets little to no relief. Patient and I discussed she will need an MRI before we can refer her. She would like to undergo the MRI. She feels her pain has changed since her last MRI. Her pain is in the low back that is worsening with standing and walking. She does understand the pump will not give her relief of her symptoms in her right foot. She is also managed with gabapentin 150 mg 1 tablet p.o. twice daily. Physical exam General: Alert and oriented x3, no acute distress, pleasant and cooperative, [on room air] Lungs: Respirations even and unlabored, symmetrical chest expansion Eyes: PERRL Musculoskeletal: Flexion and extension of lumbar spine somewhat guarded secondary to pain, deep tendon reflexes normal, strength in upper and lower extremities [5/5], [abnormal gait noted] Neurological: Speech clear, refuse collector equal, no gross sensory deficit Procedure Details:: Informed consent was obtained and the risk and benefits of the procedure were explained to the patient. Patient was taken to the procedure room where noninvasive monitoring was placed including noninvasive blood pressure cuff and pulse oximeter. Patient's pump was interrogated and was reprogrammed to morphine at 1.5 mg/day. The patient tolerated the procedure well with no complications. Plan and Disposition:: We will order an MRI of her lumbar spine so that we can get the patient referred to neurosurgery per her request. She initially wanted her intrathecal pump removed at the beginning of the discussion today, however, after the patient was educated that we would need to wean with her intrathecal therapy, she has changed her mind this time. She would like an increase in her dosing instead. We did increase her to morphine at 1.5 mg/day. We will see her back after MRI and get her referral to neurosurgery per her request. Patient has been instructed to contact the clinic with any concerns before the next appointment. Dr. Liz has reviewed this note and agrees with this plan of care. This note was dictated using voice recognition software and make contain errors or omissions.
== END ==
PROVIDERS: PCP Physician Assistant; Visit Provider Clinical Nurse Specialist Family Health
DX: M51.16 Intervertebral disc disorders with radiculopathy, lumbar region (principal); Z45.1 Encounter for adjustment and management of infusion pump
CPT/HCPCS: 62368; 62370; 99212; G0463

== ENCOUNTER → 2020-11-12 12:41 | Outpatient (CLI) | payer MEDICARE, MEDICAID, SELFPAY ==
--- NOTE | 2020-11-12 12:41 | MR_ITS ---
PROCEDURE INFORMATION: Exam: MR Right Lower Extremity Joint Without Contrast, Knee Exam date and time: 11/12/2020 12:41 PM Age: 60 years old Clinical indication: Pain; Right; Prior surgery; Surgery date: 6+ months; Surgery type: Orif RT lower leg; Patient HX: Evaluate for menisical tear HX of RT knee locking. ; Additional info: Evaluate for mensical tear TECHNIQUE: Imaging protocol: MR of the Right lower extremity joint without contrast. Exam focused on the knee. COMPARISON: US ARTERIAL LOWER EXT REST 06/29/2020 10:03 AM FINDINGS: Bones and cartilage: Internal fixation of previous proximal tibial fractures. Artifact obscures portions of the immediately adjacent anatomy. No fracture or suspicious marrow signal seen elsewhere. No internal derangement within the knee. The menisci are intact. Small effusion. Minimal Sinha's cyst. Mild osteoarthritis. Joint spaces: No joint effusion. Fat pads of knee: There is some low signal fibrosis in Hoffa's fat pad. This could be symptomatic in some patients. Medial meniscus: See Bones and cartilage finding. Lateral meniscus: Unremarkable. No tear. Anterior cruciate ligament: Unremarkable. No tear. Posterior cruciate ligament: Unremarkable. No tear. Medial capsule and supporting structures: Unremarkable. No tear. Lateral capsule and supporting structures: Unremarkable. No tear. Extensor mechanism of knee: Thickened and indistinct distal fibers of the quadriceps tendon a some artifact here suggesting previous repair. Partial re-tear of the distal fibers is not excluded here and there is at least severe tendinosis. There is no retraction. Muscles: Unremarkable. Soft tissues: See Fat pads of knee finding. IMPRESSION: 1. Internal fixation of previous proximal tibial fractures. Artifact obscures portions of the immediately adjacent anatomy. No fracture or suspicious marrow signal seen elsewhere. 2. Thickened and indistinct distal fibers of the quadriceps tendon a some artifact here suggesting previous repair. Partial re-tear of the distal fibers is not excluded here and there is at least severe tendinosis. There is no retraction. 3. No internal derangement within the knee. The menisci are intact. 4. There is some low signal fibrosis in Hoffa's fat pad. This could be symptomatic in some patients. 5. Small effusion. Minimal Sinha's cyst. 6. Mild osteoarthritis.
--- NOTE | 2020-11-12 12:42 | MR_ITS ---
PROCEDURE INFORMATION: Exam: MR Lumbar Spine Without Contrast Exam date and time: 11/12/2020 12:42 PM Age: 60 years old Clinical indication: Low back pain; Patient HX: PT c/p lbp with bilateral numbness and tingling in legs with no known injury and no HX of surgery. Prior l-spine xray done 02/03/2018 TECHNIQUE: Imaging protocol: Multiplanar magnetic resonance images of the lumbar spine without intravenous contrast. COMPARISON: [facility]/O MRI-L-SPINE W/O 06/15/2015 2:27 PM FINDINGS: Vertebrae: Portions of the anatomy are obscured by artifact on the right however the majority of the lumbar spine can be assessed. Spinal cord: No abnormal signal in the distal spinal cord. L1-L2: No significant disc disease. No significant spinal canal stenosis. No neural foraminal stenosis. L2-L3: No significant disc disease. No significant spinal canal stenosis. No neural foraminal stenosis. L3-L4: Mild facet arthropathy. L4-L5: Mild bulge of the disc. Moderate facet arthropathy. Mild narrowing of the central canal and of the neural foramina. L5-S1: Mild bulge of the disc. Mild facet arthropathy. Mild narrowing of the neural foramina. Other bones/joints: No fracture or suspicious marrow signal. Soft tissues: Unremarkable. Other findings: Limited degenerative changes without focal disc herniation or greater than mild stenosis. IMPRESSION: 1. Portions of the anatomy are obscured by artifact on the right however the majority of the lumbar spine can be assessed. 2. No fracture or suspicious marrow signal. 3. No abnormal signal in the distal spinal cord. 4. Limited degenerative changes without focal disc herniation or greater than mild stenosis.
== END ==
PROVIDERS: PCP Physician Assistant; Visit Provider Clinical Nurse Specialist Family Health
DX: M25.561 Pain in right knee (principal); Z09 Encounter for follow-up examination after completed treatment for conditions other than malignant neoplasm; M54.5 Low back pain
CPT/HCPCS: 72148; 73721; 76376

== ENCOUNTER → 2020-12-06 10:39 | Outpatient (POV) | payer MEDICARE, MEDICAID, SELFPAY ==
[2020-12-06 10:49] VITALS: BP 146/88; PULSE 112; RESP 18; O2SAT 95; BMI 27.4
--- NOTE | 2020-12-06 11:02 | HMH.PMPROC ---
- Procedure Date: 12/06/20 Time: 11:02 Anesthesiologist:: Bridget Zacarias APRN Complications:: None Pre-procedure Diagnosis:: Degenerative disc disease lumbar spine with lumbar radiculopathy symptoms, chronic back pain Post-procedure Diagnosis:: Same Indications for Procedure:: Patient is a 60-year-old white female who presents today for intrathecal pain pump adjustment. She is being treated for degenerative disc disease lumbar spine with lumbar radiculopathy symptoms. Patient has an intrathecal pain pump that she says is not working for her at this time. She also says that she was unaware she would have to pay for the medication and her intrathecal pain pump. She says she is unable to afford the medication. She also says that the pump is not giving her much relief. She rates her pain a 7 out of 10 today. At her last visit she reported she wanted the intrathecal pump removed, however, when I did discuss with the patient she would need to wean on her medication, she changed her mind with explanting the device. Today, she and I have had the same discussion as her previous visit. She understands that we need to wane with her intrathecal therapy before we can remove the device. She is currently at 1.5 mg/day. She was previously at 1.2 mg/day of morphine. She has requested to take oxycodone and [place] today. I have advised the patient to not be taking these medications with her intrathecal therapy due to high risk of oversedation. She also takes Ativan 0.5 mg 1 tablet p.o. daily. Patient is requesting oral medications along with intrathecal therapy as she weans. She has been advised we cannot do this. She has also been advised to use caution with taking any medications not prescribed at this time, and to refrain from taking any old medications that she may have leftover from previous prescriptions. Physical exam General: Alert and oriented x3, no acute distress, pleasant and cooperative, [on room air] Lungs: Respirations even and unlabored, symmetrical chest expansion Eyes: PERRL Musculoskeletal: Flexion and extension of lumbar spine somewhat guarded secondary to pain, deep tendon reflexes normal, strength in upper and lower extremities [5/5], [abnormal gait noted] Neurological: Speech clear, hematology technologist equal, no gross sensory deficit Procedure Details:: Informed consent was obtained and the risk and benefits of the procedure were explained to the patient. Patient was taken to the procedure room where noninvasive monitoring was placed including noninvasive blood pressure cuff and pulse oximeter. Patient's pump was interrogated and was reprogrammed to morphine 1.2 mg/day. The patient tolerated the procedure well with no complications. Plan and Disposition:: We will see the patient back in the clinic in 2 weeks and continue to wean her with her intrathecal therapy. Again, she has been advised to not take other medications not prescribed to her at this time with her intrathecal therapy due to high risk of oversedation. We will see her back in 2 weeks to continue to wean. We will wean the patient by 20% at her next visit. Patient has been instructed to contact the clinic with any concerns before the next appointment. Dr. Liz has reviewed this note and agrees with this plan of care. This note was dictated using voice recognition software and make contain errors or omissions.
--- NOTE | 2020-12-21 10:47 | PC.NURSE ---
Spoke with patient on 12/21/20 around 10:30 AM notifying her of Explant Date for january. We also talked about her coming to her appointments these next few weeks for weaning to get explant january 19.
== END ==
PROVIDERS: PCP Physician Assistant; Visit Provider Clinical Nurse Specialist Family Health
DX: M51.16 Intervertebral disc disorders with radiculopathy, lumbar region (principal); G89.29 Other chronic pain; Z45.1 Encounter for adjustment and management of infusion pump
CPT/HCPCS: 62368

== ENCOUNTER → 2020-12-16 14:30 | Outpatient (CLI) | payer MEDICARE, MEDICAID, SELFPAY ==
[2020-12-16 14:50] LABS: Amphetamine/Metha Screen,Urine Negative ng/ml (<1000); Barbiturates Screen,Urine Negative ng/ml (<200)
[2020-12-16 14:51] LABS: Benzodiazepines Screen,Urine Negative ng/ml (<200)
[2020-12-16 14:52] LABS: Cannabinoid Screen,Urine Negative ng/ml (<50); Cocaine Screen,Urine Negative ng/ml (<300)
[2020-12-16 14:53] LABS: Methadone Screen,Urine Negative ng/ml (<300); Opiate Screen,Urine Positive ng/ml (<300)
[2020-12-16 14:54] LABS: Phencyclidine Screen,Urine Negative ng/ml (<25)
== END ==
PROVIDERS: Visit Provider Physician Assistant
DX: Z79.899 Other long term (current) drug therapy (principal)
CPT/HCPCS: 80305

== ENCOUNTER → 2020-12-31 14:23 | Outpatient (POV) | payer MEDICARE, MEDICAID, SELFPAY ==
[2020-12-31 14:33] VITALS: BP 141/96; PULSE 79; RESP 18; O2SAT 98; BMI 28.0
--- NOTE | 2020-12-31 14:39 | HMH.PMPROC ---
- Procedure Date: 12/31/20 Time: 14:39 Anesthesiologist:: Martha Rivera MD Complications:: None Pre-procedure Diagnosis:: Degenerative disease of lumbar spine, lumbar radiculopathy Post-procedure Diagnosis:: Same Indications for Procedure:: This patient is a very pleasant 60-year-old white female who presents today for intrathecal pain pump adjustment. We have been treating her for degenerative disc disease of the lumbar spine with lumbar radiculopathy symptoms. She has an intrathecal pain pump that she states is not adequately managing her pain and she states she cannot afford her medication. She has been following with us now for gradual weaning of her intrathecal pump dosing. The plan is we will gradually wean her by 20% every week. She is currently has intrathecal morphine at constant flow of 1.2 mg/day and PTC bolusing of 0.05 mg 4 times a day with a 6-hour lockout with a total max daily dose of 1.38 mg/day. Today she will undergo intrathecal pump analysis with reprogramming; we will further decrease her by 20% today. Procedure Details:: Informed consent was obtained. The risk and benefits of the procedure were explained to the patient. Patient was taken to the procedure room. The pump was interrogated. Intrathecal [morphine infusion] was decreased by [20]% to [1.0] mg/day. We will keep her PTC bolusing as is for now with 0.05 mg boluses 4 times a day with a 6-hour lockout for a total max daily dose of 1.182 mg/day. Patient tolerated the procedure well with no complications. Plan and Disposition:: Follow-up with this patient next week and further decrease her pump by 20% should she remain asymptomatic and not experience any withdrawal symptoms.
== END ==
PROVIDERS: PCP Physician Assistant; Visit Provider Anesthesiology Pain Medicine
DX: M51.16 Intervertebral disc disorders with radiculopathy, lumbar region (principal); Z45.1 Encounter for adjustment and management of infusion pump
CPT/HCPCS: 62368

== ENCOUNTER → 2021-01-13 15:52 | Outpatient (POV) | payer MEDICARE, MEDICAID, SELFPAY ==
--- NOTE | 2021-01-13 15:53 | HMH.PMPROC ---
- Procedure Date: 01/13/21 Time: 15:53 Anesthesiologist:: Bridget Zacarias APRN Complications:: None Pre-procedure Diagnosis:: Degenerative disc disease lumbar spine with lumbar radiculopathy symptoms Post-procedure Diagnosis:: Same Indications for Procedure:: Patient is a pleasant 60-year-old white female who presents today for intrathecal pain pump adjustment. She has been treated for degenerative disc disease lumbar spine with lumbar radiculopathy symptoms. She does have an intrathecal pain pump that she does not feel has been working for her pain. As result, she has requested explained. She is here today for adjustment. We did plan to explant this upcoming week, however, due to her dosing, and missed appointments, we will not be able to explain time. She is currently on 1 mg/day along with her boluses. She has had to use her boluses over the last few days due to worsening pain. She also reports nausea vomiting and diarrhea. She denies discussed this could be withdrawal symptoms. We did discuss we can decrease her by 15% today. We can see her back on Sunday to decrease once again. We will decrease her from 1 mg/day to 0.85 mg/day. Physical exam General: Alert and oriented x3, no acute distress, pleasant and cooperative, [on room air] Lungs: Respirations even and unlabored, symmetrical chest expansion Eyes: PERRL Musculoskeletal: Flexion and extension of [] lumbar [spine] somewhat guarded secondary to pain, strength in upper and lower extremities [5/5], [antalgic gait noted] Neurological: Speech clear, [regional vice president life sales equal], no gross sensory deficit gastrointestinal: Nausea, vomiting, diarrhea Procedure Details:: Informed consent was obtained and the risk and benefits of the procedure were explained to the patient. Patient was taken to the procedure room where noninvasive monitoring was placed including noninvasive blood pressure cuff and pulse oximeter. Patient's pump was interrogated and was reprogrammed to morphine at 0.85 mg/day. The patient tolerated the procedure well with no complications. Plan and Disposition:: We will see the patient back on Sunday to continue to decrease her dose. We will decrease her by 20 to 30% depending on her symptoms. Patient has been instructed to contact the clinic with any concerns before the next appointment. Dr. Liz has reviewed this note and agrees with this plan of care. This note was dictated using voice recognition software and make contain errors or omissions.
[2021-01-14 07:47] VITALS: BP 124/89; PULSE 110; RESP 20; TEMP 36.4; O2SAT 97; BMI 27.9
== END ==
PROVIDERS: PCP Physician Assistant; Visit Provider Clinical Nurse Specialist Family Health
DX: M51.16 Intervertebral disc disorders with radiculopathy, lumbar region (principal); Z45.1 Encounter for adjustment and management of infusion pump
CPT/HCPCS: 62368

== ENCOUNTER → 2021-01-17 09:44 | Outpatient (POV) | payer MEDICARE, MEDICAID, SELFPAY ==
[2021-01-17 09:49] VITALS: BP 153/91; PULSE 100; RESP 18; TEMP 36.7; O2SAT 94; BMI 26.6
--- NOTE | 2021-01-17 09:58 | HMH.PMPROC ---
- Procedure Date: 01/17/21 Time: 09:59 Anesthesiologist:: Bridget Zacarias APRN Complications:: None Pre-procedure Diagnosis:: Degenerative disc disease lumbar spine with lumbar radiculopathy symptoms Post-procedure Diagnosis:: Same Indications for Procedure:: Patient is a 60-year-old white female who presents today for intrathecal pain pump adjustment. The patient is being treated for degenerative disc disease lumbar spine with lumbar radiculopathy symptoms. Patient has not been getting any relief with her intrathecal therapy and has requested the device be explanted. The patient has missed multiple appointments for weaning and as result has had to be weaned at a quicker pace for explant. She did report some withdrawal symptoms at her last visit, however, is willing to wean once again at an increased amount today so that she is able to explant on Sunday. She is currently on morphine at 0.85 mg/day. She says that she is not using any of her boluses. We will decrease her by half a so that she can be turned off and explanted on Sunday. Patient does understand we will not be able to provide her with oral medications in the clinic but can manage her with interventional therapies in the future. She does rate her pain at a 6 out of 10 today. Physical exam General: Alert and oriented x3, no acute distress, pleasant and cooperative, [on room air] Lungs: Respirations even and unlabored, symmetrical chest expansion Eyes: PERRL Musculoskeletal: Flexion and extension of [] lumbar [spine] somewhat guarded secondary to pain, strength in upper and lower extremities [5/5], [antalgic gait noted] Neurological: Speech clear, [application analyst equal], no gross sensory deficit Procedure Details:: Informed consent was obtained and the risk and benefits of the procedure were explained to the patient. Patient was taken to the procedure room where noninvasive monitoring was placed including noninvasive blood pressure cuff and pulse oximeter. Patient's pump was interrogated and was reprogrammed to morphine at 0.42 mg/day. The patient tolerated the procedure well with no complications. Plan and Disposition:: Patient will undergo explant on 01/19/2021. She has not gotten any significant relief with her intrathecal therapy. We will follow up with her post explant for evaluation of incision and symptoms. She has been instructed to call the clinic if she has any concerns before then. Patient has been instructed to contact the clinic with any concerns before the next appointment. Dr. Liz has reviewed this note and agrees with this plan of care. This note was dictated using voice recognition software and make contain errors or omissions.
== END ==
PROVIDERS: PCP Physician Assistant; Visit Provider Clinical Nurse Specialist Family Health
DX: M51.16 Intervertebral disc disorders with radiculopathy, lumbar region (principal); Z45.1 Encounter for adjustment and management of infusion pump
CPT/HCPCS: 62368

== ENCOUNTER → 2021-01-18 13:26 | Outpatient (CLI) | payer MEDICARE, MEDICAID, SELFPAY ==
[2021-01-18 13:48] LABS: Basophils % 0.7 % (0.1-2.0); Eosinophils # 0.3 K/mm3 (0.0-0.4); Hematocrit 40.1 % (37.0-47.0); Hemoglobin 13.3 g/dL (12.2-16.2); Lymphocytes # 1.9 K/mm3 (0.7-4.5); Lymphocytes % 32.7 % (10-50); Mean Corpuscular HGB Conc 33.2 g/dL (31.8-35.4); Mean Corpuscular Hemoglobin 27.3 pg (27.0-31.2); Mean Corpuscular Volume 82.2 fl (81-99); Mean Platelet Volume 8.8 fl (7.4-10.4); Monocytes # 0.4 K/mm3 (0.1-1.0); Monocytes % 6.6 % (1.7-9.3); Neutrophils # 3.2 K/mm3 (1.8-7.8); Platelet Count 381 K/mm3 (142-424); Red Blood Count 4.88 M/mm3 (4.20-5.40); Red Cell Distribution Width 14.1 % (11.5-17.5); White Blood Count 5.9 K/mm3 (4.8-10.8)
[2021-01-18 14:36] LABS: Anion Gap 9.9 mEq/L (5-15); Blood Urea Nitrogen 6 mg/dl (7-17); Calcium 7.4 mg/dl (8.4-10.2); Carbon Dioxide 29 mmol/L (22.0-30.0); Chloride 104 mmol/L (98-107); Estimated Glomerular Filt Rate 102 ml/min (>60); GFR (African American) 123 ML/MIN (>60); Glucose 90 mg/dl (74-100); Potassium 3.9 mmoL/L (3.5-5.1); Sodium 139 mmol/L (136-145)
== END ==
PROVIDERS: Visit Provider Anesthesiology
DX: Z01.812 Encounter for preprocedural laboratory examination (principal); Z20.822 Contact with and (suspected) exposure to COVID-19
CPT/HCPCS: 36415; 80048; 85025; U0003

== ENCOUNTER 2021-01-19 07:37 | Day surgery (SDC) | payer MEDICARE, MEDICAID, SELFPAY ==
[2021-01-18 09:39] VITALS: BMI 26.6
[2021-01-19 08:42] VITALS: BP 126/88; PULSE 105; RESP 18; TEMP 36.7; O2SAT 96
--- NOTE | 2021-01-19 10:01 | PC.NURSE ---
called in Rx for Bactrim DS 1 tab PO BID x7 days with no refills per MD order
--- NOTE | 2021-01-19 11:13 | HMH.ANESCL ---
[facility] Anesthesia Checklist - Patient Identification Patient Identification: Arm Band - Structural Data Admitted From: Home Planned Operative Procedure/s: pain pump explant Consent for Planned Operative Procedure(s) Verified: Yes Verified Documents: Surgical Consent, History and Physical - NPO Status Verified Time NPO: 00:00 - Additional verifications Anesthesia Reactions: No Hx Blood Transfusions: No Blood Transfusion Reaction: No - Airway Assessment C-Spine Mobility Assessed: Yes (mp2) TMJ Mobility Assessed: Yes Dentition: Poor Dentition - Neurological Assessment Level of Consciousness: Awake, Alert - Anesthesia Plan Anesthesia Risk discussed: Yes Anesthesia Plan: Verified ASA Class: III Anesthesia Type: MAC [facility] History I have reviewed the patient's past medical history: Yes Medical History: Reports:: Anxiety, Arrhythmia, Asthma, Cancer (skin), Chronic Obstructive Pulmonary Disease (COPD), Coronary Artery Disease, Depression, Gastroesophageal Reflux Disease(GERD), Hyperlipidemia, Hypertension, Migraine, Palpitations Denies:: Diabetes Mellitus Type 1, Diabetes Mellitus Type 2, Internal Pacemaker, MRSA, Seizures *Have you ever received a pneumonia vaccine?: Yes *Have you received a flu vaccine this season?: Yes Other Medical History: Reports: Arthritis, Fibromyalgia, Hormone Therapy, Hypothyroidism, Liver Disease, Thyroid Disease, Other. Denies: Blood Transfusion Reaction Anesthesia experience/problems:: nac Laterality Cases: Left: Other, Right: Arthroscopy Knee Other Surgeries: Yes: No Previous Surgery, Appendectomy, BSO, Cancer Surgery (thyroid), Cardiac Catheterization, Cholecystectomy, Colonoscopy, , EGD, Hysterectomy-Total, Thyroidectomy, Other. No: Pacemaker Amputation: No Fractures: Yes (2018- FX. LEFT ANKLE 2020 fracture Right Ankle hx surgery) - *Social History Last grade of school completed: GED Smoking Status: Never smoker Alcohol Intake: never Alcohol Intake Frequency:: holidays/special occasions only Substance Use Type: denies use *Occupational Status:: disabled Housing: house Household Members: none *Travel in the last 8 weeks: None - Psychiatric History Pschychiatric History:: Reports:: Anxiety, Depression Family Hx:: No significant family history
--- NOTE | 2021-01-19 11:29 | P.OP_ITS ---
Date of procedure: 01/19/21 Pre-op Diagnosis:: Leak from pain pump system?desires removal of pain pump generator Post-op Diagnosis:: Same Procedure performed:: Removal of right pain pump generator Surgeon:: Jesus Moody MD RELEASE COORDINATOR:: Darryl Alaniz, Isaac Morris, Donald Angeles, Paras Donovan, Arturo Hawkins, Emery Ortiz, Other Anesthesia: MAC Estimated blood loss (mL): 5 Operative findings:: Not applicable Operative note:: Patient was placed prone on the operating table and her back and flank regions were prepped and draped in sterile fashion. Once adequate local anesthesia obtained 1% Xylocaine with epinephrine and local and IV sedation utilizing anesthesia the incision was opened over the generator and carried down through the skin and subcutaneous tissues. Generator was delivered from the incision without difficulty. Generator from the catheter and the catheter was ligated with a 0 silk tie. At this point the area was irrigated with antibiotic solution. The subcutaneous tissues closed with 2-0 Vicryl. Skin closed arm stitches of 4-0 nylon. Sterile compression dressing applied to the wound. The patient taught procedure well was taken recovery with stabilization. Upon recovery the patient will be discharged home will follow up in the clinic in 1 week. Bactrim DS twice daily x1 week per protocol. The patient tolerated the procedure well Condition: stable Disposition: PACU Complications:: None
[2021-01-19 11:43] VITALS: BP 120/77; PULSE 101; RESP 18; TEMP 36.2; O2SAT 96
[2021-01-19 11:53] VITALS: BP 113/78; PULSE 93; RESP 18; O2SAT 96
[2021-01-19 12:03] VITALS: BP 121/76; PULSE 92; RESP 18; O2SAT 96
[2021-01-19 12:10] VITALS: BP 117/73; PULSE 92; RESP 18; O2SAT 96
--- NOTE | 2021-01-19 13:52 | SUR.OPER ---
1120 Pain pump removed has SN: [id number]
== END 2021-01-19 12:34 | disposition home or self-care (01) ==
LOC: OR 07:38
PROVIDERS: PCP Physician Assistant; Visit Provider Surgery
DX: T85.615A Breakdown (mechanical) of other nervous system device, implant or graft, initial encounter; Z45.1 Encounter for adjustment and management of infusion pump; J44.9 Chronic obstructive pulmonary disease, unspecified; I25.10 Atherosclerotic heart disease of native coronary artery without angina pectoris; K21.9 Gastro-esophageal reflux disease without esophagitis; E78.5 Hyperlipidemia, unspecified; I10 Essential (primary) hypertension; G43.909 Migraine, unspecified, not intractable, without status migrainosus; F41.9 Anxiety disorder, unspecified; I49.9 Cardiac arrhythmia, unspecified; R00.2 Palpitations; Z85.828 Personal history of other malignant neoplasm of skin
CPT/HCPCS: 62365; 96374; J2704; J3370

== ENCOUNTER 2021-01-26 13:52 | Observation (INO) | payer MEDICARE, MEDICAID, SELFPAY ==
[2021-01-26] VITALS (7 sets, daily range): BP systolic 128–160; BP diastolic 75–107; PULSE 75–124; RESP 17–22; TEMP 36.8–37.9; O2SAT 97–100; BMI 26.2; BMI 25.6
--- NOTE | 2021-01-26 14:06 | ECG_ITS ---
APPROVED REPORT Exam: Resting ECG HR:125 bpm ECG Measurements Heart Rate 125 AXES MN 142 P 60 QRSd 80 QRS -59 QT 304 T 83 QTc 438 Conclusion Sinus tachycardia Left atrial abnormality Left axis deviation Abnormal ECG Electronically signed by : Benny Goldman MD 01/27/2021 17:35:10
[2021-01-26 14:18] LABS: Chloride 100 mmol/L (98-107)
[2021-01-26 14:19] LABS: Potassium 3.2 mmoL/L (3.5-5.1); Sodium 138 mmol/L (136-145)
[2021-01-26 14:21] LABS: Alanine Aminotransferase 12 U/L (12-78); Aspartate Amino Transferase 32 U/L (14-36); Basophils % 0.2 % (0.1-2.0); Blood Urea Nitrogen 9 mg/dl (7-17); Creatinine Clearance Estimated 65 mL/min (50-200); Eosinophils # 0.8 K/mm3 (0.0-0.4); Eosinophils % 3.7 % (0.1-12.0); Estimated Glomerular Filt Rate 73 ml/min (>60); GFR (African American) 88 ML/MIN (>60); Hematocrit 47.4 % (37.0-47.0); Hemoglobin 15.3 g/dL (12.2-16.2); Lymphocytes # 1.5 K/mm3 (0.7-4.5); Lymphocytes % 6.9 % (10-50); Mean Corpuscular HGB Conc 32.2 g/dL (31.8-35.4); Mean Corpuscular Hemoglobin 27.3 pg (27.0-31.2); Mean Corpuscular Volume 84.7 fl (81-99); Mean Platelet Volume 8.8 fl (7.4-10.4); Monocytes # 0.7 K/mm3 (0.1-1.0); Monocytes % 3.3 % (1.7-9.3); Neutrophils % 85.9 % (37.0-80.0); Platelet Count 428 K/mm3 (142-424); Red Cell Distribution Width 14.4 % (11.5-17.5)
[2021-01-26 14:22] LABS: Albumin Level 3.7 g/dl (3.5-5.0); Albumin/Globulin Ratio 1.1 (1.1-1.8); Alkaline Phosphatase 166 U/L (38-126); Anion Gap 14.2 mEq/L (5-15); Bilirubin,Total 0.7 mg/dl (0.2-1.3); Calcium 7.6 mg/dl (8.4-10.2); Carbon Dioxide 27 mmol/L (22.0-30.0); Globulin 3.4 g/dL (1.3-3.2); Glucose 146 mg/dl (74-100); Total Protein,Serum 7.1 g/dl (6.3-8.2)
[2021-01-26 14:24] LABS: MANUAL DIFFERENTIAL MANUAL DIFFERENTIAL (MANUAL DIFF)
[2021-01-26 14:38] LABS: Eosinophils % 5 % (0-3); Lymphocytes % 9 % (10-50); Monocytes % 5 % (2-9); Neutrophils % 81 % (42-76); Platelet Estimate Normal; RBC Morphology Normal; Total Cells Counted 100
--- NOTE | 2021-01-26 14:56 | CT_ITS ---
PROCEDURE: CT ABDOMEN PELVIS W CON CLINICAL INDICATION: abd pain, diarrhea COMPARISON: CT CT ABDOMEN WO/W CON from 01/13/2020 TECHNIQUE: IV Contrast: 75ML Isovue 370 Oral Contrast None Axial images obtained with sagittal and coronal reformats. All CT scans at the facility use one or more dose reduction, viz: automated exposure control, ma/kV adjustment per patient size (including targeted exams where dose is matched to indication, i.e. head), or iterative reconstruction technique. FINDINGS: LOWER THORAX: Minimal nodularity noted in the right minor fissure and may be due to small lymph nodes. Stable subpleural opacity right lower lobe. ABDOMEN & PELVIS: Fatty liver. There is an enhancing lesion involving the dome of the liver at 7 mm. With an additional intense area of enhancement involving the right hepatic lobe posteriorly at 10 mm which is smaller than when compared to the previous exam. Small peripheral enhancing nodules present involving the right hepatic lobe medially at 5 mm also smaller compared to the previous study. There has been a prior cholecystectomy. The spleen, adrenal glands, and pancreas have an unremarkable appearance. There is mild thickening of the gastric antrum and pyloric area nonspecific. No renal or ureteral calculi. There is given history of prior appendectomy. There is diffuse thickening with mild mucosal enhancement involving the colon from the cecum to the rectum consistent with diffuse colitis. No evidence of pneumatosis. There is mild stranding of the fat in the pericolic region in the cecum and ascending colon area and in the sigmoid region. No free air apparent. No evidence of small-bowel obstruction. Small amount fluid is present in the right perirectal region. There is a fluid collection in the subcutaneous tissues of the right flank region with an air-fluid level. This collection measures 5.5 cm transverse, 1.8 cm in thickness, and 3 cm cephalad caudad. This is consistent with a pain pump cavity as there is a catheter leading from this cavity to the L4-5 region and in cephalad within the spinal canal to the T9-T10 area. There is indentation of the skin at the level of the collection with some mild stranding of the subcutaneous fat. IMPRESSION: 1. Pancolonic thickening with mild stranding of the pericolic fat consistent with diffuse colitis. C diff aside all is a consideration. No evidence of pneumatosis or free air. 2. At least 3 enhancing lesions of the liver 2 of which have decreased in size. These may represent hemangiomas. 3. Fluid collection is present within the subcutaneous tissues of the right flank area with an air-fluid level consistent with seroma or abscess following pain pump generator removal. Please correlate with time when the pump was removed and with patient's clinical findings. Dictated by: Diego Kowalski MD 01/26/2021 16:08 Diego Kowalski MD in [place] 01/26/2021 16:09
[2021-01-26 15:15] LABS: Lactic Acid 1.3 mmol/L (0.7-2.1)
--- NOTE | 2021-01-26 15:15 | PC.NURSE ---
rad notified of Ct order
[2021-01-26 15:18] LABS: Lipase 24 U/L (23-300)
[2021-01-26 16:06] LABS: Microscopic, Urine URINE MICROSCOPIC (MICROSCOPIC)
[2021-01-26 16:15] LABS: Appearance,Urine CLEAR (Clear); Bilirubin,Urine Negative (Negative); Blood, Urine TRACE-I (Negative); Color,Urine YELLOW (Yellow); Glucose,Urine (UA) Negative (Negative); Ketones,Urine Negative (Negative); Leukocyte Esterase,Urine TRACE (Negative); Nitrate,Urine Negative (Negative); Protein,Urine TRACE (Negative); Specific Gravity, Urine 1.015 (1.005-1.030); Urobilinogen,Urine 0.2 EU/dl (0.2)
[2021-01-26 16:32] LABS: Bacteria,Urine Trace /lpf; Squamous Epithelial Cell,Urine Occasional #/hpf (0-5)
--- NOTE | 2021-01-26 18:13 | HMH.EDGENADL ---
ED Disposition Clinical Impression: Pancolitis Disposition: Admitted as Observation Condition on Discharge: Fair - Critical Care Critical Care Time: No Attestation: On 01/26/21, the high probability of a clinically significant, sudden or life threatening deterioration of the following system(s) required my full and direct attention, intervention and personal management. The time I documented below is in addition to time spent performing reported procedures but includes the following listed in this critical care notation. Medical Decision Making - Daniele Inquiry Pt receiving controlled substance: Yes Daniele was queried for this patient: No Risks and benefits of using a controlled substance: were not discussed with pt by me Vital Signs: 01/26/21 13:45 01/26/21 15:00 01/26/21 16:00 Temperature 99.3 F Temperature Source Oral Pulse Rate 117 H 113 H Pulse Rate [Right] 118 H Respiratory Rate 20 19 22 Blood Pressure 136/107 H 160/104 H Blood Pressure [Right Arm] 140/102 H Blood Pressure Mean [Right Arm] 114 02 Sat by Pulse Oximetry 100 97 99 01/26/21 16:30 01/26/21 17:36 Temperature Temperature Source Pulse Rate 113 H Pulse Rate [Right] Respiratory Rate 18 21 Blood Pressure 158/92 H 148/104 H Blood Pressure [Right Arm] Blood Pressure Mean [Right Arm] 02 Sat by Pulse Oximetry 99 - Lab Data Lab Results 01/26/21 14:00: WBC 21.0 H*, RBC 5.60 H, Hgb 15.3, Hct 47.4 H, MCV 84.7, MCH 27.3, MCHC 32.2, RDW 14.4, Plt Count 428 H, MPV 8.8, Neut % (Auto) 85.9 H, Lymph % (Auto) 6.9 L, [place] % (Auto) 3.3, Eos % (Auto) 3.7, Baso % (Auto) 0.2, Neut # (Auto) 18.0 H, Lymph # (Auto) 1.5, [place] # (Auto) 0.7, Eos # (Auto) 0.8 H, Baso # (Auto) 0.0, Total Counted 100, Neutrophils % (Manual) 81 H, Lymphocytes % (Manual) 9 L, Monocytes % (Manual) 5, Eosinophils % (Manual) 5 H, Platelet Estimate Normal, RBC Morphology Normal 01/26/21 14:00: Sodium 138, Potassium 3.2 L, Chloride 100, Carbon Dioxide 27, Anion Gap 14.2, BUN 9, Creatinine 0.80, Estimated Creat Clear 65, Estimated GFR 73, Est GFR ( Amer) 88, Glucose 146 H, Calcium 7.6 L, Total Bilirubin 0.7, AST 32, ALT 12, Alkaline Phosphatase 166 H, Total Protein 7.1 D, Albumin 3.7, Globulin 3.4 H, Albumin/Globulin Ratio 1.1 01/26/21 14:00: Lipase 24 01/26/21 15:00: Lactate 1.3 01/26/21 15:50: Urine Color Yellow, Urine Appearance Clear, Urine pH 6.0, Ur Specific [place] 1.015, Urine Protein Trace, Urine Glucose (UA) Negative, Urine Ketones Negative, Urine Blood Trace-i, Urine Nitrate Negative, Urine Bilirubin Negative, Urine Urobilinogen 0.2, Ur Leukocyte Esterase Trace, Urine RBC 3-5, Urine WBC None, Ur Squamous Epith Cells Occasional, Urine Bacteria Trace Result diagrams: 01/26/21 14:00 01/26/21 14:00 Orders (Tests/Meds): ED MEDICATIONS Generic Name Dose Route Start Last Admin Trade Name Freq PRN Reason Stop Dose Admin Levofloxacin/Dextrose 750 mg in 150 mls @ 100 mls/hr 01/26/21 18:30 01/26/21 18:49 Levofloxacin 750mg/150ml Premix IV 02/09/21 18:29 100 mls/hr Q24H PRITI Administration Metronidazole 500 mg in 100 mls @ 100 mls/hr 01/26/21 18:30 Flagyl 500mg/100ml Ivpb IV 02/09/21 18:29 Q8H PRITI Vancomycin HCl 125 mg 01/26/21 21:00 Vancomycin 500mg Vial PO 02/09/21 20:59 QID PRITI Discontinued Medications Generic Name Dose Route Start Last Admin Trade Name Freq PRN Reason Stop Dose Admin Sodium Chloride 1,000 mls @ 999 mls/hr 01/26/21 14:00 01/26/21 14:05 Sod Chlor 0.9% 1000ml Bag IV 01/26/21 15:00 999 mls/hr .Q1H1M PRITI Administration Iopamidol 75 ml 01/26/21 15:27 01/26/21 15:28 Iopamidol-370 (76%);100ml Bottle IV 01/26/21 15:28 75 ml ONCE ONE Administration Morphine Sulfate 4 mg 01/26/21 18:23 01/26/21 18:49 Morphine 4mg/Ml Syringe IV 01/26/21 18:24 4 mg ONCE ONE Administration Ondansetron HCl 4 mg 01/26/21 18:23 01/26/21 18:49 Ondansetron 4mg/2ml Vial IV 01/26/21 18
[2021-01-26 18:40] LABS: Coronavirus 19, PCR Not Detected (NotDetected); Influenza A, PCR Not Detected (NotDetected); Influenza B, PCR Not Detected (NotDetected)
[2021-01-26 19:06] LABS: Adenovirus F 40/41, stool Not Detected (NotDetected); Astrovirus Not Detected (NotDetected); Campylobacter Not Detected (NotDetected); Cryptosporidium Not Detected (NotDetected); Cyclospora Cayetanesis Not Detected (NotDetected); Entamoeba histolytica Not Detected (NotDetected); Enteroaggregative E coli Not Detected (NotDetected); Enteropathogenic E coli Not Detected (NotDetected); Enterotoxigenic E coli Not Detected (NotDetected); Giardia lamblia Not Detected (NotDetected); Norovirus Not Detected (NotDetected); Plesimonas Shigalloides, PCR Not Detected (NotDetected); Rotavirus A Not Detected (NotDetected); Salmonella, PCR Not Detected (NotDetected); Sapovirus Not Detected (NotDetected); Shiga-like toxin E coli Not Detected (NotDetected); Shigella Enterovasive E coli Not Detected (NotDetected); Vibrio Cholerae Not Detected (NotDetected); Vibrio, PCR Not Detected (NotDetected); Yersinia Entercolitica, PCR Not Detected (NotDetected)
--- NOTE | 2021-01-26 19:26 | PC.NURSE ---
Report given to Kayla.
--- NOTE | 2021-01-26 20:31 | PC.NURSE ---
patient up to floor via wheelchair
[2021-01-26 20:41] LABS: Clostridium Difficile A/B, PCR Detected (NotDetected)
--- NOTE | 2021-01-26 20:42 | PC.NURSE ---
received notification of cdiff + diagnosis.
--- NOTE | 2021-01-26 20:43 | PC.NURSE ---
advised cy drummond of cdiff positive diagnosis. dr hoover is aware.
--- NOTE | 2021-01-26 20:44 | PC.NURSE ---
d/c'keya neal per md order. advised cy drummond of [place].
--- NOTE | 2021-01-26 21:33 | HMH.HP ---
*Admission Date: 01/26/21 *Chief complaint: abd pain *History of present illness: this patient presented to the ed with abd pain -o lower abdominal pain with diarrhea x7 days, reports bright red blood in stool on sunday Complains of severe diarrhea for little over a week associated with generalized abdominal pain, fever, vomiting. She noticed some blood in her stool at home. No recent travel. Her only recent hospitalization was outpatient removal of a pain pump on of last week 5 days ago, but symptoms preceded that. No recent antibiotics. pt on ct showed pancolitis and has c diff on diarrhea panel and pt was admitted for ivf and treatment [facility] History I have reviewed the patient's past medical history: Yes Medical History: Reports:: Anxiety, Arrhythmia, Asthma, Cancer, Chronic Obstructive Pulmonary Disease (COPD), Coronary Artery Disease, Depression, Gastroesophageal Reflux Disease(GERD), Hyperlipidemia, Hypertension, Migraine, Palpitations Denies:: Diabetes Mellitus Type 1, Diabetes Mellitus Type 2, Internal Pacemaker, MRSA, Seizures *Have you ever received a pneumonia vaccine?: Yes *Have you received a flu vaccine this season?: No Other Medical History: Reports: Arthritis, Fibromyalgia, Hormone Therapy, Hypothyroidism, Liver Disease, Thyroid Disease, Other. Denies: Blood Transfusion Reaction Laterality Cases: Left: Other, Right: Arthroscopy Knee Other Surgeries: Yes: No Previous Surgery, Appendectomy, BSO, Cancer Surgery (thyroid), Cardiac Catheterization, Cholecystectomy, Colonoscopy, , EGD, Hysterectomy-Total, Thyroidectomy, Other. No: Pacemaker Amputation: No Fractures: Yes (2018- FX. LEFT ANKLE 2020 fracture Right Ankle hx surgery) - *Social History Smoking Status: Never smoker Alcohol Intake: never Alcohol Intake Frequency:: holidays/special occasions only Substance Use Type: denies use *Occupational Status:: disabled Housing: house Household Members: none *Travel in the last 8 weeks: None - Psychiatric History Pschychiatric History:: Reports:: Anxiety, Depression Family Hx:: Asthma, Cancer, Diabetes, Heart Attack, Hyperlipidemia, Hypertension, Stroke, Thyroid Disorder, Tuberculosis Review of Systems - Constitutional Reports lack of energy, Denies fever(s) - Eyes Denies change in vision - ENT Denies sore throat - *Cardiovascular Denies chest pain at rest - *Respiratory Denies cough - *Gastrointestinal Reports abdominal pain, Reports bright, red blood in stools, Reports loose stools, Reports nausea, Reports vomiting - *Genitourinary Denies blood in urine - *Musculoskeletal Denies joint pain - Integumentary/Breasts Denies rash - *Neurologic Denies headache(s), Denies seizure-like activity - Psychiatric Denies anxiety Meds Home Medications Medication Instructions Recorded Confirmed Type Calcium Carbonate/Vitamin D3 1 each PO DAILY 08/01/20 01/18/21 History [Calcium 600-Vit D3 400 Tablet] Fluticasone Propionate [24 Hour 1 spray NS DAILY 08/01/20 01/27/21 History Allergy] Montelukast Sodium 10 mg PO HS 08/01/20 01/27/21 History aspirin 81 mg tablet,delayed 81 mg PO DAILY #90 tab 08/05/20 01/27/21 Rx release Omeprazole 40 mg PO DAILY 10/25/20 01/27/21 History levocetirizine 5 mg tablet 5 mg PO DAILY #90 tab 12/16/20 01/26/21 Rx levothyroxine 50 mcg tablet 50 mcg PO DAILY #90 tab 12/16/20 01/26/21 Rx pregabalin 150 mg capsule 150 mg PO BID #60 cap 12/16/20 01/26/21 Rx rosuvastatin 10 mg tablet 10 mg PO HS #90 tab 12/16/20 01/26/21 Rx triamcinolone acetonide 0.025 % 1 applic TOPICAL BID PRN #80 g 12/16/20 01/18/21 Rx topical ointment linaclotide 72 mcg capsule 72 mcg PO DAILY #90 cap 12/17/20 01/26/21 Rx quetiapine 200 mg tablet 200 mg PO HS tab 12/23/20 01/27/21 History Alendronate Sodium [Fosamax 70mg 70 mg PO WEEKLY 12/31/20 01/26/21 History Tablet] Denosumab [Prolia] 60 mg SQ [id number] 12/31/20 01/26/21 History Metoprolol Succinate [Metoprolol 25 mg PO EFREM
--- NOTE | 2021-01-27 03:56 | PC.NURSE ---
Pt has c/o discomfort to abdomen. States that it is tender and c/o burning after drinking. Spence stoleratd ice chips. She also c/o chronic back pain. She has DSG on (r) side of back from recent surgery. No BM this shift. Medications administered per aug. Pt is in contact enteric precautions. VSS. Will continue to monitor.
[2021-01-27 04:00] VITALS: BP 135/88; PULSE 120; RESP 17; TEMP 37.5; O2SAT 95
[2021-01-27 05:50] VITALS: BMI 25.6
[2021-01-27 06:12] LABS: Basophils # 0.1 K/mm3 (0-0.2); Basophils % 0.3 % (0.1-2.0); Eosinophils # 0.4 K/mm3 (0.0-0.4); Eosinophils % 1.4 % (0.1-12.0); Hematocrit 40.1 % (37.0-47.0); Lymphocytes # 1.1 K/mm3 (0.7-4.5); Mean Corpuscular HGB Conc 32.8 g/dL (31.8-35.4); Mean Corpuscular Hemoglobin 27.6 pg (27.0-31.2); Mean Corpuscular Volume 84.1 fl (81-99); Mean Platelet Volume 8.8 fl (7.4-10.4); Monocytes # 0.7 K/mm3 (0.1-1.0); Monocytes % 2.6 % (1.7-9.3); Neutrophils # 25.7 K/mm3 (1.8-7.8); Neutrophils % 91.7 % (37.0-80.0); Platelet Count 371 K/mm3 (142-424); Red Blood Count 4.76 M/mm3 (4.20-5.40); Red Cell Distribution Width 14.4 % (11.5-17.5)
[2021-01-27 06:13] LABS: MANUAL DIFFERENTIAL MANUAL DIFFERENTIAL (MANUAL DIFF)
[2021-01-27 06:18] LABS: Chloride 105 mmol/L (98-107); Sodium 135 mmol/L (136-145)
[2021-01-27 06:21] LABS: Anion Gap 10.6 mEq/L (5-15); Blood Urea Nitrogen 6 mg/dl (7-17); Calcium 6.2 mg/dl (8.4-10.2); Carbon Dioxide 22 mmol/L (22.0-30.0); Creatinine Clearance Estimated 63 mL/min (50-200); Estimated Glomerular Filt Rate 102 ml/min (>60); GFR (African American) 123 ML/MIN (>60); Glucose 129 mg/dl (74-100)
[2021-01-27 06:34] LABS: Lymphocytes % 13 % (10-50); Monocytes % 5 % (2-9); Neutrophils % 82 % (42-76); Platelet Estimate Normal; RBC Morphology Normal; Total Cells Counted 100
[2021-01-27 06:41] LABS: Hemoglobin 13.2 g/dL (12.2-16.2)
[2021-01-27 07:05] LABS: Potassium 2.6 mmoL/L (3.5-5.1)
--- NOTE | 2021-01-27 07:19 | HMH.PHAVTE ---
[facility] Pharmacy VTE Monitoring - Patient Demographics Admission date: 01/27/21 Report Date: 01/27/21 Time: 07:19 Allergies/Adverse Reactions: Patient Allergies captopril Allergy (Mild, Verified 12/23/20 10:21) Hivjonnathan Height: 1.63 m Weight: 68.039 kg Patient Problems: Current Active Problems (Last Reviewed 08/20/17 @ 15:21 by Ray Kahn) Chronic pain disorder (Acute) Pancolitis (Acute) C. difficile enteritis (Acute) SIRS (systemic inflammatory response syndrome) (Acute) Hypothyroidism (acquired) (Acute) Osteopenia (Chronic) Lumbar disc disease with radiculopathy (Acute) HTN (hypertension) (Chronic) THAI (obstructive sleep apnea) (Chronic) Hyperlipidemia (Chronic) Cervical radiculopathy due to degenerative joint disease of spine (Acute) Lumbar facet arthropathy (Acute) CAD (coronary artery disease) (Chronic) - VTE Risk Labs: VTE Related Lab Results Hgb 13.2 g/dL (12.2-16.2) D 01/27/21 05:58 Hct 40.1 % (37.0-47.0) 01/27/21 05:58 Plt Count 371 K/mm3 (142-424) 01/27/21 05:58 BUN 6 mg/dl (7-17) L D 01/27/21 05:58 Creatinine 0.60 mg/dl (0.52-1.04) D 01/27/21 05:58 Estimated Creat Clear 63 mL/min (50-200) 01/27/21 05:58 Was VTE Risk Assessment Performed: Yes VTE Risk Level: Low Risk Clinical Trial Participant: No - Prophylaxis VTE Prophylaxis Ordered?: Yes Types of VTE Prophylaxis: TEDS Knee High
--- NOTE | 2021-01-27 07:40 | PC.NURSE ---
notified of critical potassium
[2021-01-27 08:00] VITALS: BP 142/92; PULSE 120; RESP 24; TEMP 37.6; O2SAT 98
--- NOTE | 2021-01-27 08:29 | HMH.ACPN2 ---
Internal Medicine - PN: Subj *Date: 01/27/21 *Time: 10:00 Interval history: 60-year-old female patient lying in bed she does report generalized abdominal pain and has had multiple watery diarrheas during the night. Diarrhea panel resulted C. difficile and she is currently on Flagyl and vancomycin IV. Exam Vital signs and Labs for Last 24 Hours: Temp Pulse Resp BP Pulse Ox 99.5 F 120 H 17 135/88 95 01/27/21 04:00 01/27/21 04:00 01/27/21 04:00 01/27/21 04:00 01/27/21 04:00 Laboratory Results - last 24 hr 01/26/21 14:00: WBC 21.0 H*, RBC 5.60 H, Hgb 15.3, Hct 47.4 H, MCV 84.7, MCH 27.3, MCHC 32.2, RDW 14.4, Plt Count 428 H, MPV 8.8, Neut % (Auto) 85.9 H, Lymph % (Auto) 6.9 L, [place] % (Auto) 3.3, Eos % (Auto) 3.7, Baso % (Auto) 0.2, Neut # (Auto) 18.0 H, Lymph # (Auto) 1.5, [place] # (Auto) 0.7, Eos # (Auto) 0.8 H, Baso # (Auto) 0.0, Total Counted 100, Neutrophils % (Manual) 81 H, Lymphocytes % (Manual) 9 L, Monocytes % (Manual) 5, Eosinophils % (Manual) 5 H, Platelet Estimate Normal, RBC Morphology Normal 01/26/21 14:00: Sodium 138, Potassium 3.2 L, Chloride 100, Carbon Dioxide 27, Anion Gap 14.2, BUN 9, Creatinine 0.80, Estimated Creat Clear 65, Estimated GFR 73, Est GFR ( Amer) 88, Glucose 146 H, Calcium 7.6 L, Total Bilirubin 0.7, AST 32, ALT 12, Alkaline Phosphatase 166 H, Total Protein 7.1 D, Albumin 3.7, Globulin 3.4 H, Albumin/Globulin Ratio 1.1 01/26/21 14:00: Lipase 24 01/26/21 15:00: Lactate 1.3 01/26/21 15:50: Urine Color Yellow, Urine Appearance Clear, Urine pH 6.0, Ur Specific [place] 1.015, Urine Protein Trace, Urine Glucose (UA) Negative, Urine Ketones Negative, Urine Blood Trace-i, Urine Nitrate Negative, Urine Bilirubin Negative, Urine Urobilinogen 0.2, Ur Leukocyte Esterase Trace, Urine RBC 3-5, Urine WBC None, Ur Squamous Epith Cells Occasional, Urine Bacteria Trace 01/26/21 18:35: SARS-CoV-2 (PCR) Not detected, Influenza A Untype (PCR) Not detected, Influenza Type B (PCR) Not detected 01/26/21 18:41: Stl Aeromonas (PCR) Not detected, Stl C. cayetanensis PCR Not detected, Stool Rotavirus (PCR) Not detected, Stl Adenov F PCR Not detected, Stool Astrovirus (PCR) Not detected, Stool Campylobacter PCR Not detected, Stl C.difficile Tox PCR Detected A, Stool Cryptosporidium PCR Not detected, Stl E.coli Shiga Tox PCR Not detected, Stool E coli O157 PCR Not detected, Stl Enterotoxigenic E PCR Not detected, Stool EPEC (PCR) Not detected, Stool EAEC (PCR) Not detected, Stl E. histolytica PCR Not detected, Stool Giardia Lamblia PCR Not detected, Stool Salmonella PCR Not detected, Stool Sapovirus (PCR) Not detected, Stl P. shigelloides PCR Not detected, Stl Shigella/EIEC PCR Not detected, St Y.enterocolitica PCR Not detected, Stool Vibrio (PCR) Not detected, Stl Vibrio cholerae PCR Not detected, Stl Norovirus GI/GII PCR Not detected 01/27/21 05:58: WBC 28.0 H* D, RBC 4.76, Hgb 13.2 D, Hct 40.1, MCV 84.1, MCH 27.6, MCHC 32.8, RDW 14.4, Plt Count 371, MPV 8.8, Neut % (Auto) 91.7 H, Lymph % (Auto) 4.0 L, [place] % (Auto) 2.6, Eos % (Auto) 1.4, Baso % (Auto) 0.3, Neut # (Auto) 25.7 H, Lymph # (Auto) 1.1, [place] # (Auto) 0.7, Eos # (Auto) 0.4, Baso # (Auto) 0.1, Total Counted 100, Neutrophils % (Manual) 82 H, Lymphocytes % (Manual) 13, Monocytes % (Manual) 5, Platelet Estimate Normal, RBC Morphology Normal 01/27/21 05:58: Sodium 135 L, Potassium 2.6 L*, Chloride 105, Carbon Dioxide 22, Anion Gap 10.6, BUN 6 L D, Creatinine 0.60 D, Estimated Creat Clear 63, Estimated GFR 102, Est GFR ( Amer) 123 D, Glucose 129 H, Calcium 6.2 L I & O for Last 24 hours: Intake & Output 01/24/21 01/25/21 01/26/21 01/27/21 23:59 23:59 23:59 23:59 Weight 150 lb 150 lb - Constitutional mild distress - *Routine HEENT Exam Head: Present: normocephalic Eye: Present: EOMI ENT: Present: mucous membranes moist - *Routine Neck Exam Present: trachea midline. Absent: tracheal deviation - *Routine Respiratory Exam Present: CTA bilater
--- NOTE | 2021-01-27 09:01 | HMH.PHAINT ---
MEDICATION RECONCILIATION COMPLETED USING EXTERNAL PHARMACY FILL HISTORY.
[2021-01-27 15:28] VITALS: BP 132/92; PULSE 66; RESP 20; TEMP 37.1; O2SAT 98
[2021-01-27 20:00] VITALS: BP 140/88; PULSE 125; RESP 17; TEMP 36.9; O2SAT 98
[2021-01-28 04:00] VITALS: BP 139/94; PULSE 107; RESP 16; TEMP 37.1; O2SAT 97
[2021-01-28 06:00] VITALS: BMI 26.1
[2021-01-28 06:20] LABS: Basophils # 0.1 K/mm3 (0-0.2); Basophils % 0.2 % (0.1-2.0); Eosinophils # 0.4 K/mm3 (0.0-0.4); Eosinophils % 1.6 % (0.1-12.0); Hemoglobin 12.3 g/dL (12.2-16.2); Lymphocytes # 0.7 K/mm3 (0.7-4.5); Lymphocytes % 2.5 % (10-50); Mean Corpuscular HGB Conc 33.2 g/dL (31.8-35.4); Mean Corpuscular Hemoglobin 28.3 pg (27.0-31.2); Mean Corpuscular Volume 85.4 fl (81-99); Mean Platelet Volume 9.3 fl (7.4-10.4); Monocytes # 0.6 K/mm3 (0.1-1.0); Monocytes % 2.4 % (1.7-9.3); Neutrophils # 24.7 K/mm3 (1.8-7.8); Neutrophils % 93.3 % (37.0-80.0); Platelet Count 342 K/mm3 (142-424); Red Blood Count 4.33 M/mm3 (4.20-5.40); Red Cell Distribution Width 14.3 % (11.5-17.5); White Blood Count 26.5 K/mm3 (4.8-10.8)
[2021-01-28 06:29] LABS: MANUAL DIFFERENTIAL MANUAL DIFFERENTIAL (MANUAL DIFF)
[2021-01-28 06:51] LABS: Anion Gap 13.9 mEq/L (5-15); Blood Urea Nitrogen 5 mg/dl (7-17); Calcium 5.7 mg/dl (8.4-10.2); Carbon Dioxide 21 mmol/L (22.0-30.0); Chloride 108 mmol/L (98-107); Creatinine Clearance Estimated 65 mL/min (50-200); Estimated Glomerular Filt Rate 125 ml/min (>60); GFR (African American) 152 ML/MIN (>60); Glucose 107 mg/dl (74-100); Sodium 140 mmol/L (136-145)
[2021-01-28 06:54] LABS: Potassium 2.9 mmoL/L (3.5-5.1)
[2021-01-28 07:21] LABS: Eosinophils % 1 % (0-3); Lymphocytes % 3 % (10-50); Monocytes % 3 % (2-9); Neutrophils % 93 % (42-76); Platelet Estimate Normal; RBC Morphology Normal; Total Cells Counted 100
[2021-01-28 07:57] VITALS: BP 136/89; PULSE 102; RESP 18; TEMP 36.7; O2SAT 96
--- NOTE | 2021-01-28 09:45 | HMH.ACPN2 ---
Internal Medicine - PN: Subj *Date: 01/28/21 *Time: 14:08 Interval history: 60 YOF lying in bed resting quietly. Patient reports she would like to be discharged home today. She is still complaining of generalized abdominal tenderness and the multiple watery loose bowel movements during the night. She reports she does not have any family members or caretakers that help her at home, discussed with patient best thing for her safety would be to stay inpatient again. She agrees she is feeling weak and she will stay another night in the hospital. Exam Vital signs and Labs for Last 24 Hours: Temp Pulse Resp BP Pulse Ox 98.0 F 102 H 18 136/89 96 01/28/21 07:57 01/28/21 07:57 01/28/21 07:57 01/28/21 07:57 01/28/21 07:57 Laboratory Results - last 24 hr 01/28/21 05:32: WBC 26.5 H*, RBC 4.33, Hgb 12.3, Hct 37.0, MCV 85.4, MCH 28.3, MCHC 33.2, RDW 14.3, Plt Count 342, MPV 9.3, Neut % (Auto) 93.3 H, Lymph % (Auto) 2.5 L, [place] % (Auto) 2.4, Eos % (Auto) 1.6, Baso % (Auto) 0.2, Neut # (Auto) 24.7 H, Lymph # (Auto) 0.7, [place] # (Auto) 0.6, Eos # (Auto) 0.4, Baso # (Auto) 0.1, Total Counted 100, Neutrophils % (Manual) 93 H, Lymphocytes % (Manual) 3 L, Monocytes % (Manual) 3, Eosinophils % (Manual) 1, Platelet Estimate Normal, RBC Morphology Normal 01/28/21 05:32: Sodium 140, Potassium 2.9 L*, Chloride 108 H, Carbon Dioxide 21 L, Anion Gap 13.9, BUN 5 L, Creatinine 0.50 L, Estimated Creat Clear 65, Estimated GFR 125, Est GFR ( Amer) 152 D, Glucose 107 H, Calcium 5.7 L I & O for Last 24 hours: Intake & Output 01/25/21 01/26/21 01/27/21 01/28/21 23:59 23:59 23:59 23:59 Intake Total 3404 / 3404 180 / 180 Balance 3404 / 3404 180 / 180 Weight 150 lb 150 lb 153 lb - Constitutional mild distress, chronically ill appearing - *Routine HEENT Exam Head: Present: normocephalic Eye: Present: EOMI ENT: Present: mucous membranes moist - *Routine Neck Exam Present: trachea midline. Absent: tracheal deviation - *Routine Respiratory Exam Present: CTA bilaterally. Absent: accessory muscle use - *Routine Cardiovascular Exam Present: RRR - *Routine Abdominal Exam Present: soft, normoactive bowel sounds, tenderness - *Routine Extremities Exam Present: clubbing, full ROM, pulses intact. Absent: cyanosis - *Routine Skin Exam Present: intact, dry, warm. Absent: cyanosis, erythema - *Routine Neurological Exam Present: alert, oriented X3, normal reflexes. Absent: motor deficit - Routine Psychiatric Exam Present: normal affect, normal thought process. Absent: visual hallucinations, agitated Assessment and Plan (1) Pancolitis Status: Acute Category: Medical Code(s): K51.00 - Ulcerative (chronic) pancolitis without complications (2) Cervical radiculopathy due to degenerative joint disease of spine Status: Acute Category: Medical Code(s): M47.22 - Other spondylosis with radiculopathy, cervical region (3) Chronic pain disorder Status: Acute Category: Medical Code(s): G89.4 - Chronic pain syndrome (4) Lumbar disc disease with radiculopathy Status: Acute Category: Medical Code(s): M51.16 - Intervertebral disc disorders with radiculopathy, lumbar region (5) Lumbar facet arthropathy Status: Acute Category: Medical Code(s): M47.816 - Spondylosis without myelopathy or radiculopathy, lumbar region (6) CAD (coronary artery disease) Status: Chronic Qualifiers: Coronary Disease-Associated Artery/Lesion type: [place] artery [place] vs. transplanted heart: [place] heart Associated angina: with other forms of angina Qualified Code(s): I25.118 - Atherosclerotic heart disease of [place] coronary artery with other forms of angina pectoris Category: Medical Code(s): I25.10 - Atherosclerotic heart disease of [place] coronary artery without angina pectoris (7) HTN (hypertension) Status: Chronic Qualifiers: Hypertension type: essential hypertension Category: Medical
[2021-01-28 11:40] VITALS: BMI 26.1
[2021-01-28 15:30] VITALS: BP 140/88; PULSE 95; RESP 20; TEMP 36.9; O2SAT 97
[2021-01-28 20:00] VITALS: BP 125/82; PULSE 104; RESP 16; TEMP 36.8; O2SAT 96
[2021-01-28 23:47] VITALS: BP 123/87; PULSE 89; RESP 20; TEMP 36.4; O2SAT 94
[2021-01-29 04:00] VITALS: BP 123/79; PULSE 100; RESP 16; TEMP 36.8; O2SAT 97
[2021-01-29 04:58] VITALS: BMI 26.4
--- NOTE | 2021-01-29 05:01 | PC.NURSE ---
pt. has c/o 01/11 chronic back pain and requests morphine x3, mild effectiveness reported. Continues to report loose bm and burning with urination. No c/o soa, dizziness, or n/v.
[2021-01-29 06:08] LABS: Basophils % 0.2 % (0.1-2.0); Eosinophils # 2.8 K/mm3 (0.0-0.4); Eosinophils % 13.5 % (0.1-12.0); Hematocrit 35.9 % (37.0-47.0); Hemoglobin 11.7 g/dL (12.2-16.2); Lymphocytes # 1.4 K/mm3 (0.7-4.5); Lymphocytes % 6.5 % (10-50); Mean Corpuscular HGB Conc 32.7 g/dL (31.8-35.4); Mean Corpuscular Hemoglobin 28.2 pg (27.0-31.2); Mean Corpuscular Volume 86.2 fl (81-99); Mean Platelet Volume 9.1 fl (7.4-10.4); Monocytes # 0.6 K/mm3 (0.1-1.0); Monocytes % 2.8 % (1.7-9.3); Neutrophils # 16.2 K/mm3 (1.8-7.8); Platelet Count 335 K/mm3 (142-424); Red Blood Count 4.17 M/mm3 (4.20-5.40); Red Cell Distribution Width 14.6 % (11.5-17.5); White Blood Count 21.1 K/mm3 (4.8-10.8)
[2021-01-29 06:11] LABS: MANUAL DIFFERENTIAL MANUAL DIFFERENTIAL (MANUAL DIFF)
[2021-01-29 06:22] LABS: Chloride 110 mmol/L (98-107); Sodium 142 mmol/L (136-145)
[2021-01-29 06:25] LABS: Anion Gap 13.8 mEq/L (5-15); Blood Urea Nitrogen 4 mg/dl (7-17); Carbon Dioxide 21 mmol/L (22.0-30.0); Creatinine Clearance Estimated 66 mL/min (50-200); Estimated Glomerular Filt Rate 162 ml/min (>60); GFR (African American) 196 ML/MIN (>60)
[2021-01-29 06:26] LABS: Glucose 79 mg/dl (74-100)
[2021-01-29 06:38] LABS: Calcium 5.5 mg/dl (8.4-10.2)
[2021-01-29 06:40] LABS: Potassium 2.8 mmoL/L (3.5-5.1)
[2021-01-29 07:42] LABS: Magnesium 1.7 mg/dl (1.6-2.3)
[2021-01-29 07:56] VITALS: BP 133/83; PULSE 92; RESP 18; TEMP 36.3; O2SAT 97
--- NOTE | 2021-01-29 09:10 | HMH.ACPN2 ---
Internal Medicine - PN: Subj *Date: 01/29/21 *Time: 09:10 Interval history: doing better - diarrhea improved but labs still abn Exam Vital signs and Labs for Last 24 Hours: Temp Pulse Resp BP Pulse Ox 97.4 F L 92 H 18 133/83 97 01/29/21 07:56 01/29/21 07:56 01/29/21 07:56 01/29/21 07:56 01/29/21 07:56 Laboratory Results - last 24 hr 01/29/21 05:57: WBC 21.1 H*, RBC 4.17 L, Hgb 11.7 L, Hct 35.9 L, MCV 86.2, MCH 28.2, MCHC 32.7, RDW 14.6, Plt Count 335, MPV 9.1, Neut % (Auto) 77.0, Lymph % (Auto) 6.5 L, [place] % (Auto) 2.8, Eos % (Auto) 13.5 H, Baso % (Auto) 0.2, Neut # (Auto) 16.2 H, Lymph # (Auto) 1.4, [place] # (Auto) 0.6, Eos # (Auto) 2.8 H, Baso # (Auto) 0.0 01/29/21 05:57: Sodium 142, Potassium 2.8 L*, Chloride 110 H, Carbon Dioxide 21 L, Anion Gap 13.8, BUN 4 L, Creatinine 0.40 L, Estimated Creat Clear 66, Estimated GFR 162, Est GFR ( Amer) 196 D, Glucose 79, Calcium 5.5 L 01/29/21 06:18: Magnesium 1.7 I & O for Last 24 hours: Intake & Output 01/26/21 01/27/21 01/28/21 01/29/21 11:59 11:59 11:59 11:59 Intake Total 240 / 240 3344 / 3344 900 / 900 Balance 240 / 240 3344 / 3344 900 / 900 Weight 150 lb 153 lb 0.013 oz 155 lb Microbiology Reports for the Last 24 Hours: Microbiology 01/26/21 15:33 Blood Blood Culture - Preliminary NO GROWTH AFTER 48 HOURS 01/26/21 15:33 Blood Blood Culture - Preliminary NO GROWTH AFTER 48 HOURS - Constitutional no acute distress - *Routine HEENT Exam Head: Present: normocephalic Eye: Present: EOMI, PERRL ENT: Present: mucous membranes dry - *Routine Neck Exam Present: supple - *Routine Respiratory Exam Present: CTA bilaterally - *Routine Cardiovascular Exam Present: RRR - *Routine Abdominal Exam Present: soft - *Routine Extremities Exam Absent: calf tenderness - *Routine Skin Exam Present: intact - *Routine Neurological Exam Present: alert. Absent: CN II-XII intact - Routine Psychiatric Exam Present: normal affect Assessment and Plan (1) Pancolitis Status: Acute Category: Medical Code(s): K51.00 - Ulcerative (chronic) pancolitis without complications (2) Cervical radiculopathy due to degenerative joint disease of spine Status: Acute Category: Medical Code(s): M47.22 - Other spondylosis with radiculopathy, cervical region (3) Chronic pain disorder Status: Acute Category: Medical Code(s): G89.4 - Chronic pain syndrome (4) Lumbar disc disease with radiculopathy Status: Acute Category: Medical Code(s): M51.16 - Intervertebral disc disorders with radiculopathy, lumbar region (5) Lumbar facet arthropathy Status: Acute Category: Medical Code(s): M47.816 - Spondylosis without myelopathy or radiculopathy, lumbar region (6) CAD (coronary artery disease) Status: Chronic Qualifiers: Coronary Disease-Associated Artery/Lesion type: [place] artery [place] vs. transplanted heart: [place] heart Associated angina: with other forms of angina Qualified Code(s): I25.118 - Atherosclerotic heart disease of [place] coronary artery with other forms of angina pectoris Category: Medical Code(s): I25.10 - Atherosclerotic heart disease of [place] coronary artery without angina pectoris (7) HTN (hypertension) Status: Chronic Qualifiers: Hypertension type: essential hypertension Category: Medical Code(s): I10 - Essential (primary) hypertension (8) Hyperlipidemia Status: Chronic Qualifiers: Hyperlipidemia type: mixed hyperlipidemia Qualified Code(s): E78.2 - Mixed hyperlipidemia Category: Medical Code(s): E78.5 - Hyperlipidemia, unspecified (9) THAI (obstructive sleep apnea) Status: Chronic Category: Medical Code(s): G47.33 - Obstructive sleep apnea (adult) (pediatric) (10) Osteopenia Status: Chronic Qualifiers: Osteopenia location: unspecified Qualified Code(s): M85.80 - Other spe
[2021-01-29 10:58] LABS: Eosinophils % 12 % (0-3); Lymphocytes % 11 % (10-50); Monocytes % 3 % (2-9); Neutrophils % 72 % (42-76); Total Cells Counted 100
[2021-01-29 10:59] LABS: Giant Platelets 1+; Platelet Estimate Normal
[2021-01-29 11:41] VITALS: BP 140/92; PULSE 90; RESP 20; TEMP 36.7; O2SAT 96
--- NOTE | 2021-01-29 11:49 | HMH.ACPN2 ---
Internal Medicine - PN: Subj *Date: 01/29/21 *Time: 11:49 Exam Vital signs and Labs for Last 24 Hours: Temp Pulse Resp BP Pulse Ox 98.0 F 90 20 140/92 H 96 01/29/21 11:41 01/29/21 11:41 01/29/21 11:41 01/29/21 11:41 01/29/21 11:41 Laboratory Results - last 24 hr 01/29/21 05:57: WBC 21.1 H*, RBC 4.17 L, Hgb 11.7 L, Hct 35.9 L, MCV 86.2, MCH 28.2, MCHC 32.7, RDW 14.6, Plt Count 335, MPV 9.1, Neut % (Auto) 77.0, Lymph % (Auto) 6.5 L, [place] % (Auto) 2.8, Eos % (Auto) 13.5 H, Baso % (Auto) 0.2, Neut # (Auto) 16.2 H, Lymph # (Auto) 1.4, [place] # (Auto) 0.6, Eos # (Auto) 2.8 H, Baso # (Auto) 0.0, Total Counted 100, Neutrophils % (Manual) 72, Band Neutrophils % 1.0, Lymphocytes % (Manual) 11, Monocytes % (Manual) 3, Eosinophils % (Manual) 12 H, Basophils % (Manual) 1.0, Platelet Estimate Normal, Giant Platelets 1+ 01/29/21 05:57: Sodium 142, Potassium 2.8 L*, Chloride 110 H, Carbon Dioxide 21 L, Anion Gap 13.8, BUN 4 L, Creatinine 0.40 L, Estimated Creat Clear 66, Estimated GFR 162, Est GFR ( Amer) 196 D, Glucose 79, Calcium 5.5 L 01/29/21 06:18: Magnesium 1.7 I & O for Last 24 hours: Intake & Output 01/26/21 01/27/21 01/28/21 01/29/21 23:59 23:59 23:59 23:59 Intake Total 3404 / 3404 600 / 600 480 / 480 Balance 3404 / 3404 600 / 600 480 / 480 Weight 68.039 kg 68.039 kg 69.4 kg 70.307 kg Microbiology Reports for the Last 24 Hours: Microbiology 01/26/21 15:33 Blood Blood Culture - Preliminary NO GROWTH AFTER 48 HOURS 01/26/21 15:33 Blood Blood Culture - Preliminary NO GROWTH AFTER 48 HOURS Assessment and Plan (1) Pancolitis Status: Acute Category: Medical Code(s): K51.00 - Ulcerative (chronic) pancolitis without complications (2) Cervical radiculopathy due to degenerative joint disease of spine Status: Acute Category: Medical Code(s): M47.22 - Other spondylosis with radiculopathy, cervical region (3) Chronic pain disorder Status: Acute Category: Medical Code(s): G89.4 - Chronic pain syndrome (4) Lumbar disc disease with radiculopathy Status: Acute Category: Medical Code(s): M51.16 - Intervertebral disc disorders with radiculopathy, lumbar region (5) Lumbar facet arthropathy Status: Acute Category: Medical Code(s): M47.816 - Spondylosis without myelopathy or radiculopathy, lumbar region (6) CAD (coronary artery disease) Status: Chronic Qualifiers: Coronary Disease-Associated Artery/Lesion type: [place] artery [place] vs. transplanted heart: [place] heart Associated angina: with other forms of angina Qualified Code(s): I25.118 - Atherosclerotic heart disease of [place] coronary artery with other forms of angina pectoris Category: Medical Code(s): I25.10 - Atherosclerotic heart disease of [place] coronary artery without angina pectoris (7) HTN (hypertension) Status: Chronic Qualifiers: Hypertension type: essential hypertension Category: Medical Code(s): I10 - Essential (primary) hypertension (8) Hyperlipidemia Status: Chronic Qualifiers: Hyperlipidemia type: mixed hyperlipidemia Qualified Code(s): E78.2 - Mixed hyperlipidemia Category: Medical Code(s): E78.5 - Hyperlipidemia, unspecified (9) THAI (obstructive sleep apnea) Status: Chronic Category: Medical Code(s): G47.33 - Obstructive sleep apnea (adult) (pediatric) (10) Osteopenia Status: Chronic Qualifiers: Osteopenia location: unspecified Qualified Code(s): M85.80 - Other specified disorders of bone density and structure, unspecified site Category: Medical Code(s): M85.80 - Other specified disorders of bone density and structure, unspecified site (11) C. difficile enteritis Status: Acute Category: Medical Code(s): A04.72 - Enterocolitis due to Clostridium difficile, not specified as recurrent (12) SIRS (systemic inflammatory response syndrome) Status: Acute Ayah
[2021-01-29 16:00] VITALS: BP 134/79; PULSE 87; RESP 22; TEMP 36.3; O2SAT 97
--- NOTE | 2021-01-29 17:23 | PC.NURSE ---
pt has been restless today, has been up in chair and in the bed, has complained of pain and was treated per AUG, did have a period this afternoon where she became nauseated and vomited a very small amount, pt was treated with PRN meds per AUG, potassium replaced today, remains on room air
[2021-01-29 19:42] VITALS: BP 135/91; PULSE 103; RESP 16; TEMP 36.4; O2SAT 98
[2021-01-30 04:00] VITALS: BP 140/87; PULSE 102; RESP 15; TEMP 36.7; O2SAT 95
--- NOTE | 2021-01-30 04:31 | PC.NURSE ---
A&OX4. PT HAS C/O INTERMITTENT BACK PAIN, TX PER AUG. INCISION TO R LOWER BACK CDI. PT STATES SHE HAS CONTINUED TO HAVE MULTIPLE LOOSE BMS THIS SHIFT. NO OTHER C/O THUS FAR. RESTING COMFORTABLY INTERMITTENTLY. PPE IN USE. VSS WILL CONTINUE TO MONITOR.
[2021-01-30 05:00] VITALS: BMI 27.3
[2021-01-30 08:00] VITALS: BP 139/89; PULSE 85; RESP 18; TEMP 36.4; O2SAT 95
[2021-01-30 08:57] LABS: Basophils % 0.4 % (0.1-2.0); Eosinophils # 1.8 K/mm3 (0.0-0.4); Eosinophils % 18.3 % (0.1-12.0); Hematocrit 36.6 % (37.0-47.0); Lymphocytes % 10.8 % (10-50); Mean Corpuscular HGB Conc 32.8 g/dL (31.8-35.4); Mean Corpuscular Hemoglobin 27.8 pg (27.0-31.2); Mean Corpuscular Volume 84.9 fl (81-99); Mean Platelet Volume 8.7 fl (7.4-10.4); Monocytes # 0.4 K/mm3 (0.1-1.0); Monocytes % 4.3 % (1.7-9.3); Neutrophils # 6.4 K/mm3 (1.8-7.8); Neutrophils % 66.2 % (37.0-80.0); Platelet Count 391 K/mm3 (142-424); Red Cell Distribution Width 14.8 % (11.5-17.5); White Blood Count 9.7 K/mm3 (4.8-10.8)
[2021-01-30 09:27] LABS: Chloride 107 mmol/L (98-107); Potassium 3.3 mmoL/L (3.5-5.1); Sodium 140 mmol/L (136-145)
[2021-01-30 09:30] LABS: Anion Gap 11.3 mEq/L (5-15); Carbon Dioxide 25 mmol/L (22.0-30.0); Creatinine Clearance Estimated 68 mL/min (50-200); Estimated Glomerular Filt Rate 125 ml/min (>60); GFR (African American) 152 ML/MIN (>60)
[2021-01-30 09:31] LABS: Calcium 5.9 mg/dl (8.4-10.2); Glucose 95 mg/dl (74-100)
[2021-01-30 09:51] LABS: Blood Urea Nitrogen < 2 mg/dl (7-17)
--- NOTE | 2021-01-30 13:31 | HMH.DCSUM ---
General - General Admission date:: 01/26/21 Discharge date: 01/30/21 HPI HPI: this patient presented to the ed with abd pain -o lower abdominal pain with diarrhea x7 days, reports bright red blood in stool on sunday Complains of severe diarrhea for little over a week associated with generalized abdominal pain, fever, vomiting. She noticed some blood in her stool at home. No recent travel. Her only recent hospitalization was outpatient removal of a pain pump on of last week 5 days ago, but symptoms preceded that. No recent antibiotics. pt on ct showed pancolitis and has c diff on diarrhea panel and pt was admitted for ivf and treatment Hospital Course Hospital Course: pt has slowly improved with dec diarrhea and able to bhavya diet and activity with improved labs - on ivf and abx by po and iv and replacement k and ca - will d/c and see this week in office Objective Vital signs: Temp Pulse Resp BP Pulse Ox 97.5 F L 85 18 139/89 95 01/30/21 08:00 01/30/21 08:00 01/30/21 08:00 01/30/21 08:00 01/30/21 08:00 no acute distress - *Routine HEENT Exam Head: Present: normocephalic Eye: Present: EOMI, PERRL ENT: Present: mucous membranes dry - *Routine Neck Exam Present: supple - *Routine Respiratory Exam Present: CTA bilaterally - *Routine Cardiovascular Exam Present: RRR, murmur - *Routine Abdominal Exam Present: soft - *Routine Extremities Exam Absent: calf tenderness - *Routine Skin Exam Present: intact - *Routine Neurological Exam Present: alert, oriented X3, CN II-XII intact. Absent: motor deficit - Routine Psychiatric Exam Present: normal affect Results Labs on day of discharge: Labs from last 24 hours 01/30/21 01/30/21 08:40 08:40 WBC 9.7 D RBC 4.30 Hgb 12.0 L Hct 36.6 L MCV 84.9 MCH 27.8 MCHC 32.8 RDW 14.8 Plt Count 391 MPV 8.7 Neut % (Auto) 66.2 Lymph % (Auto) 10.8 [place] % (Auto) 4.3 Eos % (Auto) 18.3 H Baso % (Auto) 0.4 Neut # (Auto) 6.4 Lymph # (Auto) 1.0 [place] # (Auto) 0.4 Eos # (Auto) 1.8 H Baso # (Auto) 0.0 Sodium 140 Potassium 3.3 L Chloride 107 Carbon Dioxide 25 Anion Gap 11.3 BUN < 2 L D Creatinine 0.50 L D Estimated Creat Clear 68 Estimated GFR 125 Est GFR ( Amer) 152 D Glucose 95 Calcium 5.9 L Preliminary micro results at discharge 01/26/21 15:33 Blood Culture - Preliminary Blood NO GROWTH AFTER 48 HOURS 01/26/21 15:33 Blood Culture - Preliminary Blood NO GROWTH AFTER 48 HOURS DS: Diagnosis - Discharge Diagnosis (1) Pancolitis Status: Acute (2) Cervical radiculopathy due to degenerative joint disease of spine Status: Acute (3) Chronic pain disorder Status: Acute (4) Lumbar disc disease with radiculopathy Status: Acute (5) Lumbar facet arthropathy Status: Acute (6) CAD (coronary artery disease) Status: Chronic (7) HTN (hypertension) Status: Chronic (8) Hyperlipidemia Status: Chronic (9) THAI (obstructive sleep apnea) Status: Chronic (10) Osteopenia Status: Chronic (11) C. difficile enteritis Status: Acute (12) SIRS (systemic inflammatory response syndrome) Status: Acute (13) Hypothyroidism (acquired) Status: Acute (14) Hypokalemia Status: Acute (15) Hypocalcemia Status: Acute Discharge Plan - Patient Discharge Instructions ACTIVITY: Continue current activity DIET: continue same diet Patient Instructions: DI for Ulcerative Colitis, DI for Chronic Pain -- Adult, DI for Lumbar Radiculopathy, Clostridium difficile Infection - Follow up Plan Disposition: Home, Self-Care Condition at discharge:: Improved Home Medications: Home Medications Medication Instructions Recorded Confirmed Type Fluticasone Propionate [24 Hour 1 spray NS DAILY 08/01/20 01/27/21 History Allergy] Montelukast Sodium 10 mg PO HS 08/01/20 01/27/21 History
--- NOTE | 2021-01-30 14:44 | HMH.PHAINT ---
DISCHARGE MEDICATION COUNSELING PROVIDED. DISCUSSED TAKING VANCOMYCIN PO FOR 10 DAYS. PATIENT ENDORSED NO QUESTIONS AT THIS TIME.
== END 2021-01-30 15:05 | disposition home or self-care (01) ==
LOC: ER 18:30 → 2ND 19:15
PROVIDERS: Internal Medicine Adolescent Medicine; Nurse Practitioner Family; Admitting Provider Internal Medicine Adolescent Medicine; Emergency Provider Emergency Medicine; PCP Physician Assistant; Visit Provider Emergency Medicine
DX: A04.72 Enterocolitis due to Clostridium difficile, not specified as recurrent (principal); Z20.822 Contact with and (suspected) exposure to COVID-19; J44.9 Chronic obstructive pulmonary disease, unspecified; I10 Essential (primary) hypertension; I25.118 Atherosclerotic heart disease of native coronary artery with other forms of angina pectoris; G43.909 Migraine, unspecified, not intractable, without status migrainosus; E03.9 Hypothyroidism, unspecified; Z79.890 Hormone replacement therapy; Z79.899 Other long term (current) drug therapy; K21.9 Gastro-esophageal reflux disease without esophagitis; M47.22 Other spondylosis with radiculopathy, cervical region; M85.80 Other specified disorders of bone density and structure, unspecified site
CPT/HCPCS: G0378; 36415; 74177; 80048; 80053; 81001; 83605; 83690; 83735; 85007; 85025; 87040; 87506; 93005; 96365; 96375; 99284; J1956; J2405; J3370; Q9967; U0003

== ENCOUNTER → 2021-02-10 14:50 | Outpatient (POV) | payer MEDICARE, MEDICAID, SELFPAY ==
[2021-02-10 14:56] VITALS: BP 147/93; PULSE 128; RESP 18; O2SAT 95; BMI 26.6
--- NOTE | 2021-02-10 15:03 | HMH.PAINSOAP ---
[facility] Pain Management SOAP Note Subjective:: Patient is a very pleasant 60-year-old white female who presents today for follow-up. Patient did recently undergo explant of an intrathecal pain pump. The patient is being treated for degenerative disc disease lumbar spine with lumbar radiculopathy symptoms. Patient says that the intrathecal pump did not give her any significant relief and as result requested the device be explanted. Patient was waiting with her intrathecal therapy and did not have explant on 01/19/2021. Patient says she feels much better since explant. She did initially have complications following surgery. She says that she most recently was diagnosed with C. difficile and did spend some time in the hospital. She is feeling much better at this time. Patient's pain is a 6 out of 10. She is inquiring about oxycodone today. She states that she was previously given this medication in the clinic in the past. She does report her sutures were removed by her primary care provider's office. Review of Systems General: No recent weight changes, no fever, no sleep disturbances Respiratory: No cough, no shortness of air, no recurring pulmonary infections Cardiovascular/peripheral vascular: No chest pain, no palpitations, no edema, no shortness of breath Gastrointestinal: No new onset incontinence, normal bowel movements reported Genitourinary: No new onset incontinence Musculoskeletal: Chronic low back pain with lower extremity pain Psychiatric: [Normal mood/affect] Neurological: [Denies weakness in extremities], [denies balance issues] Objective:: Physical exam General: Alert and oriented x3, no acute distress, pleasant and cooperative, [on room air] Lungs: Respirations even and unlabored, symmetrical chest expansion Eyes: PERRL Musculoskeletal: Flexion and extension of lumbar [spine] somewhat guarded secondary to pain, strength in upper and lower extremities [5/5], [antalgic gait noted] Neurological: Speech clear, [cathode maker equal], no gross sensory deficit Integumentary: Incision well approximated, no redness, no drainage, no edema noted to site. No sutures noted. Assessment:: Degenerative disc disease lumbar spine with lumbar radiculopathy symptoms Plan:: Patient and I had a discussion concerning options in the clinic. Unfortunately, after further discussion with Dr. Liz, we will not be able to provide the patient with oral medications at this time. She has been given other clinic contact information for possible medication management. Patient's incision is well approximated, without redness, drainage, or edema. Sutures were removed by her primary care's office. Patient has been instructed she can contact the clinic in the future for any further interventional treatment. Patient has been instructed to contact the clinic with any concerns before the next appointment. Dr. Liz has reviewed this note and agrees with this plan of care. This note was dictated using voice recognition software and make contain errors or omissions. [facility] History I have reviewed the patient's past medical history: Yes Medical History: Reports:: Anxiety, Arrhythmia, Asthma, Cancer, Chronic Obstructive Pulmonary Disease (COPD), Coronary Artery Disease, Depression, Gastroesophageal Reflux Disease(GERD), Hyperlipidemia, Hypertension, Migraine, Palpitations Denies:: Diabetes Mellitus Type 1, Diabetes Mellitus Type 2, Internal Pacemaker, MRSA, Seizures *Have you ever received a pneumonia vaccine?: Yes *Have you received a flu vaccine this season?: No Other Medical History: Reports: Arthritis, Fibromyalgia, Hormone Therapy, Hypothyroidism, Liver Disease, Thyroid Disease, Other. Denies: Blood Transfusion Reaction Laterality Cases: Left: Other, Right: Arthroscopy Knee Other Surgeries: Yes: No Previous Surgery, Appendectomy, BSO, Cancer Surgery (thyroid), Cardiac Catheterization, Cholecystectomy, Colonoscopy, , EGD, Hysterectomy-Total, Thyroi
== END ==
PROVIDERS: PCP Physician Assistant; Visit Provider Clinical Nurse Specialist Family Health
DX: M51.16 Intervertebral disc disorders with radiculopathy, lumbar region (principal)
CPT/HCPCS: 99212; G0463

== ENCOUNTER → 2021-02-22 10:16 | Outpatient (CLI) | payer MEDICARE, MEDICAID, SELFPAY ==
--- NOTE | 2021-02-22 10:16 | MM_ITS ---
PROCEDURE: MM DIG SCREENING MAMM BI W/CAD Digital Breast Tomosynthesis Included CLINICAL INDICATION: Breast cancer screening There is a history of breast cancer in the patient's paternal grandmother. The patient has a loop recorder inner quadrant left breast. COMPARISON: MG DMSB DIG MAMM-SCREEN [place] W/CAD from 03/14/2017 MG MM DIG SCREENING MAMM BI W/CAD from 01/21/2019 MG MM DIG SCREENING MAMM BI W/CAD from 01/27/[address] ANGIO CHEST from 08/01/2020 TECHNIQUE: Standard CC and MLO images and 3D Tomosynthesis was obtained. R2 CAD reviewed. FINDINGS: Mild scattered fibroglandular densities are seen in both breasts. A portion of the metallic loop recorder is visualized inner quadrant left breast. There is a somewhat suspicious density with irregular borders upper outer quadrant left breast which was not definitely seen previously. Recommend the patient return for spot compression views and ultrasound for additional evaluation. There are no suspicious microcalcifications. IMPRESSION: Fibrofatty parenchyma with possible developing lesion upper outer quadrant left breast BI-RAD Category: 0 Need Additional Imaging Evaluation FOLLOW-UP: IMM Immediate Follow-up Recommended (A letter has been sent to the patient regarding results of the study.) Dictated by: Dr. Pee Weems MD 03/10/2021 08:50 Dr. Pee Weems MD in [place] 03/10/2021 08:50
== END ==
PROVIDERS: PCP Physician Assistant; Visit Provider Physician Assistant
DX: Z12.31 Encounter for screening mammogram for malignant neoplasm of breast (principal)
CPT/HCPCS: 77063; 77067

== ENCOUNTER → 2021-03-29 11:39 | Outpatient (CLI) | payer MEDICARE, MEDICAID, SELFPAY ==
--- NOTE | 2021-03-29 11:42 | XR_ITS ---
PROCEDURE: XR TIBIA FIBULA RT 2V CLINICAL INDICATION: sp ORIF rt ankle IM nailing RT tibia, sx 07/21/20 COMPARISON: CR XR TIBIA FIBULA RT 2V from 10/25/2020 FINDINGS: The long intramedullary jose a in the tibia is again seen stabilized by 2 horizontally threaded screws proximally and distally. The fracture of the distal tibia is well healed with only minor cortical thickening at the fracture site. The distal lateral fibular bone plate is seen and the distal fibular fracture is well healed. The soft tissues appear normal. IMPRESSION: Status post ORIF distal tibia and fibular fractures which are well healed, no acute pathology identified. Dictated by: Dr. Pee Weems MD 03/29/2021 12:24 Dr. Pee Weems MD in [place] 03/29/2021 12:24
--- NOTE | 2021-03-29 11:43 | XR_ITS ---
PROCEDURE: XR ANKLE RT MIN 3V CLINICAL INDICATION: sp ORIF rt ankle IM nailing RT tibia, sx 07/21/20 COMPARISON: CR XR TIBIA FIBULA RT 2V from 07/20/2020 CR XR ANKLE RT MIN 3V from 08/11/2020 CR XR TIBIA FIBULA RT 2V from 10/25/2020 FINDINGS: The orthopedic hardware is again noted. The distal tibial and distal fibular fractures appear well healed. . However there is very subtle irregular radiolucent line through the medial malleolus which was not seen at the time of the regional fractures and not definitely seen on the most recent follow-up study 10/25/2020. It is essentially nondisplaced but may cause some minimal narrowing of the ankle mortise medially. There is no significant soft tissue swelling. IMPRESSION: Healed fractures distal tibia and fibula, probable semi acute but age indeterminate essentially nondisplaced transverse fracture of the medial malleolus Dictated by: Dr. Pee Weems MD 03/29/2021 12:31 Dr. Pee Weems MD in [place] 03/29/2021 12:31
--- NOTE | 2021-03-29 13:52 | MM_ITS ---
PROCEDURE: MM DIG MAMM DX UNILAT LT CAD Digital Breast Tomosynthesis Included Left breast ultrasound complete CLINICAL INDICATION: abn mamm COMPARISON: MG DMSB DIG MAMM-SCREEN [place] from 11/23/2015 MG MM DIG SCREENING MAMM BI W/CAD from 01/21/2019 MG MM DIG SCREENING MAMM BI W/CAD from 01/27/2020 MG MM DIG SCREENING MAMM BI W/CAD from 02/22/2021 US US BREAST LT COMPLETE from 03/29/2021 TECHNIQUE: Problem solving views of the left breast along with left breast ultrasound FINDINGS: There is persistent asymmetric density in the upper outer aspect of the left breast measuring approximately 8 by 8 mm. This does not completely compress out with persistent nodular contour. A cyst is not identified in this region by breast ultrasound. Therefore, recommend stereotactic biopsy of this asymmetric density.. Left breast ultrasound: A complicated cyst is present at 2 o'clock measuring approximately 4 mm. No cyst or nodule demonstrated in the upper outer left breast. IMPRESSION: Discordant mammographic and ultrasound findings. Persistent asymmetric density upper outer left breast. Stereotactic biopsy suggested. BI-RAD Category: 4 Suspicious Abnormality-Biopsy Considered FOLLOW-UP: BIO Biopsy Recommended (A letter has been sent to the patient regarding results of the study.) Dictated by: Diego Kowalski MD 04/11/2021 09:52 Diego Kowalski MD in [place] 04/11/2021 09:52
== END ==
PROVIDERS: PCP Physician Assistant; Visit Provider Nurse Practitioner Family
DX: Z09 Encounter for follow-up examination after completed treatment for conditions other than malignant neoplasm (principal); R92.8 Other abnormal and inconclusive findings on diagnostic imaging of breast; S82.201D Unspecified fracture of shaft of right tibia, subsequent encounter for closed fracture with routine healing
CPT/HCPCS: 73590; 73610; 76641; 77061; 77065; G0279

== ENCOUNTER → 2021-04-04 10:17 | Outpatient (POV) | payer MEDICARE, MEDICAID, SELFPAY ==
[2021-04-04 10:30] VITALS: BP 140/97; PULSE 81; RESP 18; O2SAT 99; BMI 27.4
--- NOTE | 2021-04-04 10:56 | HMH.PAINSOAP ---
[facility] Pain Management SOAP Note Subjective:: Patient is a 61-year-old white female who presents today for follow-up. The patient is here today with complaints of bilateral low back pain with radiation into lower extremities bilaterally. Pain is worse in the right leg. She says that she has a cold sensation down both legs with what feels like urine streaming down both legs . The patient did have an intrathecal pain pump that was explanted on 01/19/2021. She did seek oral medication management with a different provider. She was advised at her last visit we cannot provide oral medications. Dr. Kellogg has given the patient Percocet 5 mg 1 tablet p.o. twice daily as well as Lyrica 150 mg 1 tablet p.o. twice daily. She continues to have pain in the low back and bilateral lower extremities. She is interested in injective therapy. Patient's pain is made worse with standing and walking and improves very little with sitting. She has tried physical therapy in the past for greater than 6 weeks and continues with home stretching. She has also tried anti-inflammatories in the past. The intrathecal pain pump did not provide the patient with any significant relief. Review of Systems General: No recent weight changes, no fever, no sleep disturbances Respiratory: No cough, no shortness of air, no recurring pulmonary infections Cardiovascular/peripheral vascular: No chest pain, no palpitations, no edema, no shortness of breath Gastrointestinal: No new onset incontinence, normal bowel movements reported Genitourinary: No new onset incontinence Musculoskeletal: Low back pain with radiation into bilateral lower extremities with cold sensation down both legs Psychiatric: [Normal mood/affect] Neurological: [Denies weakness in extremities], [denies balance issues] Objective:: Physical exam General: Alert and oriented x3, no acute distress, pleasant and cooperative Lungs: Respirations even and unlabored, symmetrical chest expansion Eyes: PERRL Musculoskeletal: Flexion and extension of lumbar [spine] somewhat guarded secondary to pain, [antalgic gait noted] Neurological: Speech clear, no gross sensory deficit Assessment:: Degenerative disc disease lumbar spine with lumbar radiculopathy symptoms Plan:: We will schedule the patient for a lumbar epidural steroid injection at L4-L5 area. The patient is not on any anticoagulation therapy. She is not diabetic. We will see her back after the injection to reevaluate her symptoms. She will continue with home stretching. She will continue with her medications prescribed by Dr. Kellogg. Possible side effects of corticosteroids have been discussed with the patient. Risks and benefits of the procedure have been explained to the patient. Patient would like to proceed with the procedure. Patient has been instructed to contact the clinic with any concerns before the next appointment. Dr. Liz has reviewed this note and agrees with this plan of care. This note was dictated using voice recognition software and make contain errors or omissions. [facility] History I have reviewed the patient's past medical history: Yes Medical History: Reports:: Anxiety, Arrhythmia, Asthma, Cancer, Chronic Obstructive Pulmonary Disease (COPD), Coronary Artery Disease, Depression, Gastroesophageal Reflux Disease(GERD), Hyperlipidemia, Hypertension, Migraine, Palpitations Denies:: Diabetes Mellitus Type 1, Diabetes Mellitus Type 2, Internal Pacemaker, MRSA, Seizures *Have you ever received a pneumonia vaccine?: No *Have you received a flu vaccine this season?: Yes Other Medical History: Reports: Arthritis, Fibromyalgia, Hormone Therapy, Hypothyroidism, Liver Disease, Thyroid Disease, Other. Denies: Blood Transfusion Reaction Laterality Cases: Left: Other, Right: Arthroscopy Knee Other Surgeries: Yes: No Previous Surgery, Appendectomy, BSO, Cancer Surgery (thyroid), Cardiac Catheterization, Cholecystectomy, Colonoscopy, , EG
== END ==
PROVIDERS: Visit Provider Clinical Nurse Specialist Family Health
DX: M51.16 Intervertebral disc disorders with radiculopathy, lumbar region (principal)
CPT/HCPCS: 99212; G0463

== ENCOUNTER → 2021-04-22 14:52 | Day surgery (SDC) | payer MEDICARE, MEDICAID, SELFPAY ==
[2021-04-22 14:54] VITALS: BP 148/97; PULSE 109; RESP 18; TEMP 36.3; O2SAT 99; BMI 28.3
[2021-04-22 15:13] VITALS: BP 155/87; PULSE 108; RESP 18; O2SAT 97
[2021-04-22 15:15] VITALS: PULSE 102; RESP 18; O2SAT 95
--- NOTE | 2021-04-22 15:19 | HMH.PMPROC ---
- Procedure Date: 04/22/21 Time: 15:19 Anesthesiologist:: Martha Rivera MD Complications:: None Pre-procedure Diagnosis:: degenerative disc disease of the lumbar spine with lumbar radiculopathy Post-procedure Diagnosis:: Same Indications for Procedure:: This patient is a very pleasant 61-year-old white female who presents today with chronic low back pain radiating to her legs related to the above diagnosis. She has tried and failed conservative treatment including oral pain medications and home stretching program for greater than 6 weeks. She was previously prescribed Percocet 5 mg 1 tablet p[address] twice daily Dr. Kellogg as well as Lyrica 150 mg 1 tablet p.o. twice daily which she states helps somewhat relieve the pain. Plan for today is for the patient to undergo a lumbar epidural steroid injection at L5-S1 under fluoroscopy #1. Procedure Details:: Informed consent was obtained and the risk and benefits of the procedure was explained to the patient. The patient was taken to the procedure room. The patient was placed prone on the procedure table. The patient was prepped and draped in sterile fashion. C-arm fluoroscopy was used to view the lumbar spine. Skin and subcutaneous tissues were anesthetized using lidocaine. I placed an 18-gauge epidural needle and advanced into the L5-S1 interspace using fluoroscopic guidance and [id number] to air and saline. After confirmation of needle placement in the epidural space with dye I injected 1 mL of lidocaine 1.0% with Depo-Medrol 80 mg. Patient tolerated the procedure well with no complications. Plan and Disposition:: Follow-up with this patient in 2 weeks. Will reevaluate pain symptoms at that time.
== END ==
PROVIDERS: PCP Physician Assistant; Visit Provider Anesthesiology Pain Medicine
DX: M51.16 Intervertebral disc disorders with radiculopathy, lumbar region (principal); G43.909 Migraine, unspecified, not intractable, without status migrainosus; E78.5 Hyperlipidemia, unspecified; I10 Essential (primary) hypertension; J44.9 Chronic obstructive pulmonary disease, unspecified; K21.9 Gastro-esophageal reflux disease without esophagitis; E03.9 Hypothyroidism, unspecified; F41.9 Anxiety disorder, unspecified; F32.A Depression, unspecified; M79.7 Fibromyalgia; K76.9 Liver disease, unspecified; I25.10 Atherosclerotic heart disease of native coronary artery without angina pectoris; Z88.8 Allergy status to other drugs, medicaments and biological substances
CPT/HCPCS: 62323; J1040; Q9966

== ENCOUNTER → 2021-04-25 10:46 | Outpatient (CLI) | payer MEDICARE, MEDICAID, SELFPAY ==
--- NOTE | 2021-04-25 10:47 | MM_ITS ---
PROCEDURE: MM STEREOTACTIC LOC LT CLINICAL INDICATION: abnormal mamm/ radiologist recommended Left breast lesion with discordant findings on mammogram and ultrasound TECHNIQUE: The patient was given 1 mg of Xanax, Lortab 5 mg, and analgesia and minor sedation. Before this, informed consent was obtained. Time-out procedure performed. The patient was placed on the stereotactic table and the abnormality in the upper outer aspect of the left breast was localized in the most appropriate projection. The breast was prepped in the routine manner, with sterile prep and the overlying skin anesthetized. A 3 to 4 mm skin incision was performed and the 9 gauge Flashnotesus vacuum-assisted core biopsy needle was advanced to the region of the calcification. Pre- and post fire images were obtained. After adequate positioning relative to the calcifications was ensured, multiple biopsies were obtained in the region of the calcifications specifically. The core biopsies obtained were sent for specimen mammography. After the calcifications were indeed identified on the specimen mammogram, the procedure was terminated. The patient tolerated the procedure well without complications. A tiny titanium nonferromagnetic MicroMark was positioned through the mammotome needle into the biopsy site. Pathology: Benign breast parenchyma with proliferative fibrocystic change and pseudoangiomatous stromal hyperplasia. Negative for atypia, DCIS, or invasive carcinoma. IMPRESSION: 1. Successful stereotactic vacuum-assisted core biopsy of the breast calcifications. 2. Successful placement of a titanium metal MicroMark. 3. Benign findings including Pash 4. No noted complications. IMPRESSION: Successful left breast stereotactic biopsy. BREAST MAMMOGRAM: Post biopsy changes in the upper outer left breast. Previously noted left breast nodule not readily apparent but could be obscured from the post biopsy changes. 5. Adequate placement of the MicroMark clip postbiopsy. 6. Postbiopsy changes within the breast. 7. Recommend six-month mammographic follow-up per routine protocol. Dictated by: Diego Kowalski MD 04/29/2021 11:55 Diego Kowalski MD in [place] 04/29/2021 11:55
== END ==
PROVIDERS: PCP Physician Assistant; Visit Provider Nurse Practitioner Family
DX: R92.8 Other abnormal and inconclusive findings on diagnostic imaging of breast (principal)
CPT/HCPCS: 19081; 77065; 88305

== ENCOUNTER → 2021-05-23 10:54 | Outpatient (POV) | payer MEDICARE, MEDICAID, SELFPAY ==
[2021-05-23 11:40] VITALS: BP 147/90; PULSE 94; RESP 18; O2SAT 99; BMI 27.4
--- NOTE | 2021-05-23 12:47 | HMH.PAINSOAP ---
[facility] Pain Management SOAP Note Subjective:: Patient is a 61-year-old white female who presents today for follow-up. Patient recently underwent a lumbar epidural steroid injection number 1 injection at L5-S1. She is being treated for degenerative disc disease lumbar spine lumbar radicular symptoms. She has pain in her low back with radiation into bilateral lower extremities. Patient says that she got 3 to 5 days of relief with the injection at about 60 to 70%. The pain has returned. She rates her pain a 6 out of 10. She did have an intrathecal pain pump explanted approximately 2 to 3 months ago due to the medication not giving her any significant relief. The patient is interested in spinal cord stimulation. She says that conservative therapies are not giving her any significant relief long-term. She has tried physical therapy for more than 6 weeks and continues with home stretching. She has had injections. She does get Percocet 5 mg 1 tablet p.o. twice daily and pregabalin 150 mg 1 tablet p.o. twice daily by Dr. Kellogg. This does give her some relief but does not take all of her pain away. Patient says she does understand that the stimulator may not take all the pain away but she would like to be more functional. The patient does continue with home stretching. She reports the pain as deep, throbbing, causing significant pain and is affecting quality of life. She denies any saddle anesthesia or changes in bowel or bladder habit. Patient is not considered a neurosurgical candidate at this time. Review of Systems General: No recent weight changes, no fever, no sleep disturbances Respiratory: No cough, no shortness of air, no recurring pulmonary infections Cardiovascular/peripheral vascular: No chest pain, no palpitations, no edema, no shortness of breath Gastrointestinal: No new onset incontinence, normal bowel movements reported Genitourinary: No new onset incontinence Musculoskeletal: Low back pain with radiation into bilateral lower extremities Psychiatric: [Normal mood/affect] Neurological: [Denies weakness in extremities], [denies balance issues] Objective:: Physical exam General: Alert and oriented x3, no acute distress, pleasant and cooperative Lungs: Respirations even and unlabored, symmetrical chest expansion Eyes: PERRL Musculoskeletal: Flexion and extension of lumbar [spine] somewhat guarded secondary to pain, [antalgic gait noted] Neurological: Speech clear, no gross sensory deficit Assessment:: Degenerative disc disease lumbar spine with lumbar radiculopathy symptoms Plan:: We will schedule patient for a spinal cord stimulator trial. The patient is not not on any anticoagulation therapy and is not diabetic. She is continue with oral medications of Percocet and pregabalin by Dr. Kellogg. The injections did not give the patient any significant relief past 5 days. She has had a psychological evaluation and was considered an appropriate candidate for spinal cord stimulation versus intrathecal therapy. We will schedule patient for a spinal cord stimulator trial and plan to see her back in the clinic after the trial for further evaluation of symptoms. Risks and benefits of the procedure have been explained to the patient. Patient would like to proceed with the procedure. Patient has been instructed to contact the clinic with any concerns before the next appointment. Dr. Liz has reviewed this note and agrees with this plan of care. This note was dictated using voice recognition software and make contain errors or omissions. [facility] History I have reviewed the patient's past medical history: Yes Medical History: Reports:: Anxiety, Arrhythmia, Asthma, Chronic Obstructive Pulmonary Disease (COPD), Coronary Artery Disease, Depression, Gastroesophageal Reflux Disease(GERD), Hyperlipidemia, Hypertension, Migraine, Palpitations Denies:: Cancer, Diabetes Mellitus Type 1, Diabetes Mellitus Type 2, Internal Pacemaker,
== END ==
PROVIDERS: Visit Provider Clinical Nurse Specialist Family Health
DX: M51.16 Intervertebral disc disorders with radiculopathy, lumbar region (principal)
CPT/HCPCS: 99212; G0463

== ENCOUNTER → 2021-06-06 14:04 | Outpatient (CLI) | payer MEDICARE, MEDICAID, SELFPAY ==
[2021-06-06 15:12] LABS: Barbiturates Screen,Urine Negative ng/ml (<200)
[2021-06-06 15:13] LABS: Amphetamine/Metha Screen,Urine Negative ng/ml (<1000)
[2021-06-06 15:14] LABS: Benzodiazepines Screen,Urine Negative ng/ml (<200); Cannabinoid Screen,Urine Negative ng/ml (<50)
[2021-06-06 15:17] LABS: Methadone Screen,Urine Negative ng/ml (<300); Opiate Screen,Urine Negative ng/ml (<300)
[2021-06-06 15:18] LABS: Phencyclidine Screen,Urine Negative ng/ml (<25)
[2021-06-06 15:30] LABS: Cocaine Screen,Urine Negative ng/ml (<300)
== END ==
PROVIDERS: Visit Provider Nurse Practitioner Family
DX: G89.4 Chronic pain syndrome (principal)
CPT/HCPCS: 80305

== ENCOUNTER → 2021-06-28 14:00 | Outpatient (CLI) | payer MEDICARE, MEDICAID, SELFPAY ==
[2021-06-28 14:28] LABS: Basophils # 0.1 K/mm3 (0-0.2); Basophils % 1.2 % (0.1-2.0); Eosinophils # 0.2 K/mm3 (0.0-0.4); Eosinophils % 4.4 % (0.1-12.0); Hematocrit 44.2 % (37.0-47.0); Hemoglobin 13.9 g/dL (12.2-16.2); Lymphocytes # 1.7 K/mm3 (0.7-4.5); Lymphocytes % 31.9 % (10-50); Mean Corpuscular HGB Conc 31.5 g/dL (31.8-35.4); Mean Corpuscular Hemoglobin 28.5 pg (27.0-31.2); Mean Corpuscular Volume 90.6 fl (81-99); Mean Platelet Volume 9.9 fl (7.4-10.4); Monocytes # 0.4 K/mm3 (0.1-1.0); Monocytes % 7.7 % (1.7-9.3); Neutrophils % 54.8 % (37.0-80.0); Platelet Count 344 K/mm3 (142-424); Red Blood Count 4.88 M/mm3 (4.20-5.40); Red Cell Distribution Width 15.4 % (11.5-17.5); White Blood Count 5.5 K/mm3 (4.8-10.8)
[2021-06-28 14:34] LABS: Alanine Aminotransferase 20 U/L (12-78); Albumin Level 4.3 g/dl (3.5-5.0); Albumin/Globulin Ratio 1.5 (1.1-1.8); Alkaline Phosphatase 84 U/L (38-126); Anion Gap 10.7 mEq/L (5-15); Aspartate Amino Transferase 37 U/L (14-36); Bilirubin,Total 0.5 mg/dl (0.2-1.3); Blood Urea Nitrogen 12 mg/dl (7-17); Calcium 8.8 mg/dl (8.4-10.2); Carbon Dioxide 29 mmol/L (22.0-30.0); Chloride 103 mmol/L (98-107); Chol/HDL Ratio 2.4 (1-3.5); Cholesterol 195 mg/dl (140-200); Estimated Glomerular Filt Rate 73 ml/min (>60); GFR (African American) 88 ML/MIN (>60); Globulin 2.9 g/dL (1.3-3.2); Glucose 89 mg/dl (74-100); HDL Cholesterol 82 mg/dl (40-60); Potassium 4.7 mmoL/L (3.5-5.1); Sodium 138 mmol/L (136-145); Total Protein,Serum 7.2 g/dl (6.3-8.2); Triglycerides 117 mg/dl (30-150); VLDL Cholesterol 23 mg/dL (0-40)
[2021-06-28 14:44] LABS: Direct LDL Cholesterol 90.53 mg/dL (100-129)
[2021-06-28 14:51] LABS: 25-OH Vitamin D, Total 23.3 ng/mL (30-100)
[2021-06-28 15:04] LABS: Thyroid Stimulating Hormone 0.95 uIU/mL (0.465-4.68)
== END ==
PROVIDERS: Visit Provider Physician Assistant
DX: D64.9 Anemia, unspecified (principal); K51.00 Ulcerative (chronic) pancolitis without complications; E66.9 Obesity, unspecified; E03.9 Hypothyroidism, unspecified; E55.9 Vitamin D deficiency, unspecified; Z68.28 Body mass index [BMI] 28.0-28.9, adult
CPT/HCPCS: 80053; 80061; 82306; 84443; 85025

== ENCOUNTER → 2021-07-04 10:11 | Outpatient (POV) | payer MEDICARE, MEDICAID, SELFPAY ==
[2021-07-04 10:35] VITALS: BP 124/90; PULSE 85; RESP 18; O2SAT 96; BMI 27.4
--- NOTE | 2021-07-04 10:44 | HMH.PAINSOAP ---
[facility] Pain Management SOAP Note Subjective:: Patient is a pleasant 59-year-old female comes in here today for follow-up. Patient is currently being treated for degenerative disc disease of lumbar spine lumbar radiculopathy symptoms. Patient is currently being managed with Lyrica 150 mg twice a day that is prescribed by César Mills. We are currently getting this patient worked up for the spinal cord stimulator trial. Her psych eval is appropriate for a spinal cord stimulator trial. Today, patient is complaining of worsening back pain that radiates to bilateral lower extremities. She says she is tender to touch on her low back. Other than the Lyrica, patient is not taking any other medications. Patient denies any loss of bowel and bladder functions. Previously, patient had an intrathecal pain pump with morphine that did not help. Patient has also tried injective therapy in May 2021 that only gave her relief for 1 day. Rates her pain today as 7 out of 10. Her Daniele number is [phone] with an active morphine equivalent of 0. Drug screens have been reviewed and appropriate. Review of Systems General: No recent weight changes, no fever, no sleep disturbances Respiratory: No cough, no shortness of air, no recurring pulmonary infections Cardiovascular/peripheral vascular: No chest pain, no palpitations, no edema, no shortness of breath Gastrointestinal: No new onset incontinence, normal bowel movements reported Genitourinary: No new onset incontinence Musculoskeletal: [Low back pain] Psychiatric: [Normal mood/affect] Neurological: [Denies weakness in extremities], [denies balance issues] Objective:: Physical exam General: Alert and oriented x3, no acute distress, pleasant and cooperative Lungs: Respirations even and unlabored, symmetrical chest expansion Eyes: PERRL Musculoskeletal: Flexion and extension of lumbar [spine] somewhat guarded secondary to pain, [antalgic gait noted]; thoracic and lumbar spines are tender to touch. Neurological: Speech clear, no gross sensory deficit Assessment:: Degenerative disc disease of the lumbar spine with lumbar radiculopathy symptoms Plan:: Per her psych evaluation, patient is appropriate for spinal cord stimulator trial. We will move forward in scheduling her for spinal cord stimulator trial. In the interim, we will start the patient on tramadol 50 mg twice a day for 14 days, and Cymbalta 60 mg daily. We will also order compounding cream for the patient to apply on her low back since her pain on her thoracic and lumbar spines are superficial. Dr. Liz has reviewed this note and agrees with this plan of care. This note was dictated using voice recognition software and make contain errors or omissions. [facility] History Medical History: Reports:: Anxiety, Arrhythmia, Asthma, Chronic Obstructive Pulmonary Disease (COPD), Coronary Artery Disease, Depression, Gastroesophageal Reflux Disease(GERD), Hyperlipidemia, Hypertension, Migraine, Palpitations Denies:: Cancer, Diabetes Mellitus Type 1, Diabetes Mellitus Type 2, Internal Pacemaker, MRSA, Seizures *Have you ever received a pneumonia vaccine?: Yes *Have you received a flu vaccine this season?: Yes Other Medical History: Reports: Arthritis, Fibromyalgia, Hormone Therapy, Hypothyroidism, Liver Disease, Thyroid Disease, Other. Denies: Blood Transfusion Reaction Laterality Cases: Left: Other, Right: Arthroscopy Knee Other Surgeries: Yes: No Previous Surgery, Appendectomy, BSO, Cancer Surgery (thyroid), Cardiac Catheterization, Cholecystectomy, Colonoscopy, , EGD, Hysterectomy-Total, Thyroidectomy, Other. No: Pacemaker Amputation: No Fractures: Yes (2018- FX. LEFT ANKLE 2020 fracture Right Ankle hx surgery) - *Social History Smoking Status: Never smoker Alcohol Intake: never Alcohol Intake Frequency:: holidays/special occasions only Substance Use Type: denies use *Occupational Status:: unemployed Housing: house Household M
== END ==
PROVIDERS: Visit Provider Clinical Nurse Specialist Family Health
DX: M51.16 Intervertebral disc disorders with radiculopathy, lumbar region (principal)
CPT/HCPCS: 99212; G0463

== ENCOUNTER → 2021-07-12 09:21 | Outpatient (POV) | payer MEDICARE, MEDICAID, SELFPAY | PROVIDERS: Visit Provider Dermatology | DX: Z00.00 Encounter for general adult medical examination without abnormal findings (principal) ==

== ENCOUNTER → 2021-08-05 10:03 | Outpatient (CLI) | payer MEDICARE, MEDICAID, SELFPAY ==
[2021-08-05 10:35] LABS: Basophils # 0.1 K/mm3 (0-0.2); Basophils % 0.9 % (0.1-2.0); Eosinophils # 0.1 K/mm3 (0.0-0.4); Eosinophils % 1.1 % (0.1-12.0); Hematocrit 44.6 % (37.0-47.0); Hemoglobin 14.2 g/dL (12.2-16.2); Lymphocytes # 1.7 K/mm3 (0.7-4.5); Lymphocytes % 29.1 % (10-50); Mean Corpuscular HGB Conc 31.7 g/dL (31.8-35.4); Mean Corpuscular Hemoglobin 28.5 pg (27.0-31.2); Mean Corpuscular Volume 89.9 fl (81-99); Monocytes # 0.4 K/mm3 (0.1-1.0); Monocytes % 6.3 % (1.7-9.3); Neutrophils # 3.5 K/mm3 (1.8-7.8); Neutrophils % 62.5 % (37.0-80.0); Platelet Count 341 K/mm3 (142-424); Red Blood Count 4.96 M/mm3 (4.20-5.40); Red Cell Distribution Width 15.1 % (11.5-17.5); White Blood Count 5.7 K/mm3 (4.8-10.8)
[2021-08-05 11:38] LABS: Chloride 98 mmol/L (98-107); Potassium 4.2 mmoL/L (3.5-5.1); Sodium 134 mmol/L (136-145)
[2021-08-05 11:41] LABS: Blood Urea Nitrogen 20 mg/dl (7-17); Estimated Glomerular Filt Rate 63 ml/min (>60); GFR (African American) 77 ML/MIN (>60)
[2021-08-05 11:42] LABS: Anion Gap 13.2 mEq/L (5-15); Carbon Dioxide 27 mmol/L (22.0-30.0); Glucose 137 mg/dl (74-100)
== END ==
PROVIDERS: Visit Provider Anesthesiology
DX: Z01.812 Encounter for preprocedural laboratory examination (principal); Z11.52 Encounter for screening for COVID-19; M51.36 Other intervertebral disc degeneration, lumbar region
CPT/HCPCS: 36415; 80048; 85025; C9803; U0003; U0005

== ENCOUNTER 2021-08-08 07:46 | Day surgery (SDC) | payer MEDICARE, MEDICAID, SELFPAY ==
[2021-08-04 10:12] VITALS: BMI 29.7
[2021-08-08] VITALS (8 sets, daily range): BP systolic 85–123; BP diastolic 55–82; PULSE 81–92; RESP 18–24; TEMP 36.1–36.4; O2SAT 93–100
--- NOTE | 2021-08-08 09:05 | HMH.ANESCL ---
[facility] Anesthesia Checklist - Patient Identification Patient Identification: Arm Band - Structural Data Admitted From: Home Planned Operative Procedure/s: Spinal cord stimulator trial Consent for Planned Operative Procedure(s) Verified: Yes - NPO Status Verified Time NPO: 00:00 - Additional verifications Anesthesia Reactions: No Hx Blood Transfusions: No Blood Transfusion Reaction: No - Airway Assessment C-Spine Mobility Assessed: Yes TMJ Mobility Assessed: Yes Dentition: Good Dentition - Neurological Assessment Level of Consciousness: Awake Hx Seizures: No Numbness or tingling in extremities: Yes - Anesthesia Plan Anesthesia Risk discussed: Yes Anesthesia Plan: Verified ASA Class: III Anesthesia Type: MAC [facility] History I have reviewed the patient's past medical history: Yes Medical History: Reports:: Anxiety, Arrhythmia, Asthma, Chronic Obstructive Pulmonary Disease (COPD), Coronary Artery Disease, Depression, Gastroesophageal Reflux Disease(GERD), Hyperlipidemia, Hypertension, Migraine, Palpitations Denies:: Cancer, Diabetes Mellitus Type 1, Internal Pacemaker, MRSA, Seizures *Have you ever received a pneumonia vaccine?: Yes *Have you received a flu vaccine this season?: Yes Other Medical History: Reports: Arthritis, Fibromyalgia, Hormone Therapy, Hypothyroidism, Liver Disease, Thyroid Disease, Other. Denies: Blood Transfusion Reaction Anesthesia experience/problems:: None Laterality Cases: Left: Other, Right: Arthroscopy Knee Other Surgeries: Yes: No Previous Surgery, Appendectomy, BSO, Cancer Surgery (thyroid), Cardiac Catheterization, Cholecystectomy, Colonoscopy, , EGD, Hysterectomy-Total, Thyroidectomy, Other. No: Pacemaker Amputation: No Fractures: Yes (2018- FX. LEFT ANKLE 2020 fracture Right Ankle hx surgery) - *Social History Last grade of school completed: GED Smoking Status: Never smoker Alcohol Intake: current Alcohol Intake Frequency:: holidays/special occasions only Substance Use Type: denies use *Occupational Status:: disabled Housing: apartment Household Members: none *Travel in the last 8 weeks: None - Psychiatric History Pschychiatric History:: Reports:: Anxiety, Depression Family Hx:: Asthma, Cancer, Diabetes, Heart Attack, Hyperlipidemia, Hypertension, Stroke, Thyroid Disorder, Tuberculosis
--- NOTE | 2021-08-08 10:36 | P.OP_ITS ---
Date of procedure: 08/08/21 Pre-op Diagnosis:: Degenerative disc disease of lumbar spine with lumbar radiculopathy symptoms Post-op Diagnosis:: Same Procedure performed:: Spinal cord stimulator trial with epidural lead placement x2 Surgeon:: Eber Liz MD SHOWER ENCLOSURE INSTALLER:: Isaac Morris Anesthesia: MAC Estimated blood loss (mL): 1 Clinical Note:: Patient is a pleasant 61-year-old white female who we are treating for low back pain with lumbar radiculopathy symptoms. She has failed all previous conservative treatments including injections, oral medications, physical therapy and intrathecal therapy. Her pump has been explanted. We did leave the catheter in place. She is not a surgical candidate. Most of her pain is in the low back with radiation into the right leg all the way to the foot. We will plan on spinal cord stimulator trial today with epidural lead placement x2. She does have a successful psychological evaluation. Operative findings:: None Operative note:: Informed consent was obtained and the risk and benefits of the procedure were explained to the patient. Patient was taken the operating room placed prone on the procedure table. She was prepped and draped in sterile fashion. C-arm fluoroscopy was used to view the lumbar spine. The skin and subtenons tissues were anesthetized using lidocaine. I placed a 17-gauge epidural needle and advanced into the L1-L2 interspace. After confirmation of needle placement in the epidural space stimulating lead was inserted and advanced very easily to the T7-T8-T9 vertebral body. We did have the lead at the bottom half of the T7 vertebral body and top half of the T10 vertebral body. A second needle was inserted advanced again into the L1-L2 interspace. Again after confirmation of needle placement in the epidural space a second stimulating lead was inserted and advanced very easily to the T7-T8-T9 vertebral body. Again the top of the lead was at the bottom half of the T7 vertebral body and the bottom lead was at the top half of the T10 vertebral body. Leads were checked in AP and lateral views. The needles and stylets were removed. The leads were secured in place. The patient was taken recovery in stable condition. Patient tolerated the procedure well with no complications. Patient was programmed by the [employer] account maintenance representative with good stimulation in all areas of pain. She was placed on a paresthesia free fast program. Patient was discharged home neurologically intact with good relief of pain symptoms. Plan and disposition: Follow-up with this patient in 1 week for lead pull. We will continually follow-up every day and make adjustments if needed. If she has any problems questions she is to call us back in the pain clinic. Condition: stable Disposition: PACU Complications:: None
--- NOTE | 2021-08-08 11:17 | SUR.PHASEII ---
Pt beginning to normalize. Able to speak clearer and calmer, no longer tearful.
--- NOTE | 2021-08-08 11:25 | SUR.PHASEII ---
Pt much improved, is calm and answering appropirately. Unable to get through to pt's ex- who is supposed to be here with pt.
== END 2021-08-08 12:00 | disposition home or self-care (01) ==
LOC: OR 07:47
PROVIDERS: PCP Physician Assistant; Visit Provider Anesthesiology
DX: M51.16 Intervertebral disc disorders with radiculopathy, lumbar region (principal); F41.9 Anxiety disorder, unspecified; J45.909 Unspecified asthma, uncomplicated; J44.9 Chronic obstructive pulmonary disease, unspecified; I25.10 Atherosclerotic heart disease of native coronary artery without angina pectoris; F32.A Depression, unspecified; K21.9 Gastro-esophageal reflux disease without esophagitis; E78.5 Hyperlipidemia, unspecified; I10 Essential (primary) hypertension; G43.909 Migraine, unspecified, not intractable, without status migrainosus; R00.2 Palpitations; M19.90 Unspecified osteoarthritis, unspecified site; M79.7 Fibromyalgia; E03.9 Hypothyroidism, unspecified
CPT/HCPCS: 63650 ×2; 96374; C1778

== ENCOUNTER → 2021-08-12 09:44 | Outpatient (POV) | payer MEDICARE, MEDICAID, SELFPAY ==
[2021-08-12 10:00] VITALS: BP 147/95; PULSE 81; RESP 20; TEMP 36.4; O2SAT 94; BMI 29.2
--- NOTE | 2021-08-12 11:47 | HMH.PAINSOAP ---
[facility] Pain Management SOAP Note Subjective:: Patient is a pleasant 61-year-old white female who we have been treating for low back pain with lumbar radiculopathy symptoms. She has undergone spinal cord stimulator trial. She did get about 50% relief of her symptoms however she is unsure as to whether she wants to proceed with permanent placement. Pain score is a 6 out of 10 today. She still is sore from the procedure. We will remove her leads today she has been reprogrammed several times. We will follow-up with her in 1 to 2 weeks to discern efficacy of the trial once trial leads are out and the trial has been discontinued. Objective:: Alert and oriented x3 no acute distress. Patient does have an antalgic gait. Motor strength of the lower extremities is 5/5. There is no gross sensory deficit. Trial leads were removed intact. No signs of infection no redness no swelling Assessment:: Degenerative disease of lumbar spine with lumbar radiculopathy symptoms Plan:: We will follow-up with her in 1 to 2 weeks. Will reevaluate her pain symptoms and see if the patient notices difference after discontinuation of her spinal cord stimulator trial. At that time we will decide whether to proceed with permanent placement of spinal cord stimulator or pursuing other therapy. [facility] History Medical History: Reports:: Anxiety, Arrhythmia, Asthma, Chronic Obstructive Pulmonary Disease (COPD), Coronary Artery Disease, Depression, Diabetes Mellitus Type 2, Gastroesophageal Reflux Disease(GERD), Hyperlipidemia, Hypertension, Migraine, Palpitations Denies:: Cancer, Diabetes Mellitus Type 1, Internal Pacemaker, MRSA, Seizures *Have you ever received a pneumonia vaccine?: Yes *Have you received a flu vaccine this season?: Yes Other Medical History: Reports: Arthritis, Fibromyalgia, Hormone Therapy, Hypothyroidism, Liver Disease, Thyroid Disease, Other. Denies: Blood Transfusion Reaction Laterality Cases: Left: Other, Right: Arthroscopy Knee Other Surgeries: Yes: No Previous Surgery, Appendectomy, BSO, Cancer Surgery (thyroid), Cardiac Catheterization, Cholecystectomy, Colonoscopy, , EGD, Hysterectomy-Total, Thyroidectomy, Other. No: Pacemaker Amputation: No Fractures: Yes (2017- FX. LEFT ANKLE 2020 fracture Right Ankle hx surgery) - *Social History Smoking Status: Never smoker Alcohol Intake: current Alcohol Intake Frequency:: holidays/special occasions only Substance Use Type: denies use *Occupational Status:: retired Housing: apartment Household Members: none *Travel in the last 8 weeks: None - Psychiatric History Pschychiatric History:: Reports:: Anxiety, Depression Family Hx:: Asthma, Cancer, Diabetes, Heart Attack, Hyperlipidemia, Hypertension, Stroke, Thyroid Disorder, Tuberculosis
== END ==
PROVIDERS: PCP Physician Assistant; Visit Provider Anesthesiology
DX: M51.16 Intervertebral disc disorders with radiculopathy, lumbar region (principal)
CPT/HCPCS: 99212; G0463

== ENCOUNTER → 2021-08-29 13:28 | Outpatient (POV) | payer MEDICARE, MEDICAID, SELFPAY ==
[2021-08-29 13:47] VITALS: BP 122/84; PULSE 89; RESP 18; TEMP 36.3; O2SAT 94
--- NOTE | 2021-08-29 17:08 | HMH.PAINSOAP ---
[facility] Pain Management SOAP Note Subjective:: Patient is a pleasant 61-year-old female who presents today for follow-up. Patient is currently being treated for degenerative disc disease of the lumbar spine with lumbar radiculopathy symptoms. When we last saw this patient, patient has undergone a spinal cord stimulator trial. Patient states that she had about 50% relief of her symptoms. She was unsure if she wanted to proceed with permanent placement. She rates her pain today as 7 out of 10. She says that she does have some worsening pain since we have removed her leads. Patient does agree that the stimulator is helping some of her pain. [facility] #[id number] with an active morphine equivalent of 0. She is also being prescribed lorazepam 0.5 mg twice a day and Lyrica 150 mg twice a day by Lulu Noyola. These medications are are somewhat helping some of her discomfort. Review of Systems: General: No recent weight changes, no fever, no sleep disturbances Respiratory: No cough, no shortness of air, no recurring pulmonary infections Cardiovascular/peripheral vascular: No chest pain, no palpitations, no edema, no shortness of breath Gastrointestinal: No new onset incontinence, normal bowel movements reported Genitourinary: No new onset incontinence Musculoskeletal: Low back pain Psychiatric: [Normal mood/affect] Neurological: [Denies weakness in extremities], [denies balance issues] Objective:: Physical Exam: General: Alert and oriented x3, no acute distress, pleasant and cooperative, [on room air] Lungs: Respirations even and unlabored, symmetrical chest expansion Eyes: PERRL Musculoskeletal: Flexion and extension of lumbar [spine] somewhat guarded secondary to pain, [antalgic gait noted] Neurological: Speech clear, no gross sensory deficit Assessment:: Degenerative disc disease of the lumbar spine with lumbar radiculopathy symptoms Plan:: Patient continues to have significant pain throughout her body. She says that she has pain in all major joints and in her low back that it is hard to pinpoint what is causing her the most pain. Patient had an intrathecal pain pump in the past. She says that the pain pump was not helping her. She did say that she did really well after her pump trial but she did not like that we were increasing her morphine dose every time she comes to us. I did discuss with her that since she had relief after her intrathecal pain pump trial, she probably was not at a therapeutic dose yet with her morphine pump. I feel like we took out her pump prematurely. In the meantime, we are limited to what we can do for the patient since we have tried intrathecal pain pumps and she does not want to pursue the spinal cord stimulator. I would also like to refer the patient to rheumatology to see if she has any autoimmune issues. Follow up in one month. Patient has been instructed to contact the clinic with any concerns before the next appointment. Dr. Liz has reviewed this note and agrees with this plan of care. This note was dictated using voice recognition software and make contain errors or omissions. [facility] History Medical History: Reports:: Anxiety, Arrhythmia, Asthma, Chronic Obstructive Pulmonary Disease (COPD), Coronary Artery Disease, Depression, Diabetes Mellitus Type 2, Gastroesophageal Reflux Disease(GERD), Hyperlipidemia, Hypertension, Migraine, Palpitations Denies:: Cancer, Diabetes Mellitus Type 1, Internal Pacemaker, MRSA, Seizures *Have you ever received a pneumonia vaccine?: Yes *Have you received a flu vaccine this season?: Yes Other Medical History: Reports: Arthritis, Fibromyalgia, Hormone Therapy, Hypothyroidism, Liver Disease, Thyroid Disease, Other. Denies: Blood Transfusion Reaction Laterality Cases: Left: Other, Right: Arthroscopy Knee Other Surgeries: Yes: No Previous Surgery, Appendectomy, BSO, Cancer Surgery (thyroid), Cardiac Catheterization, Cholecystectomy, Colonoscopy, , EGD, Hysterec
== END ==
PROVIDERS: Visit Provider Student in an Organized Health Care Education/Training Program
DX: M51.16 Intervertebral disc disorders with radiculopathy, lumbar region (principal)
CPT/HCPCS: 99212; G0463

== ENCOUNTER → 2021-09-07 11:36 | Outpatient (CLI) | payer MEDICARE, MEDICAID, SELFPAY ==
[2021-09-07 12:40] LABS: Basophils # 0.1 K/mm3 (0-0.2); Basophils % 1.4 % (0.1-2.0); Eosinophils # 0.1 K/mm3 (0.0-0.4); Eosinophils % 1.3 % (0.1-12.0); Hematocrit 47.3 % (37.0-47.0); Hemoglobin 14.9 g/dL (12.2-16.2); Lymphocytes # 1.8 K/mm3 (0.7-4.5); Lymphocytes % 35.4 % (10-50); Mean Corpuscular HGB Conc 31.5 g/dL (31.8-35.4); Mean Corpuscular Hemoglobin 28.8 pg (27.0-31.2); Mean Corpuscular Volume 91.6 fl (81-99); Mean Platelet Volume 9.1 fl (7.4-10.4); Monocytes # 0.5 K/mm3 (0.1-1.0); Monocytes % 9.5 % (1.7-9.3); Neutrophils # 2.6 K/mm3 (1.8-7.8); Neutrophils % 52.4 % (37.0-80.0); Platelet Count 343 K/mm3 (142-424); Red Blood Count 5.16 M/mm3 (4.20-5.40); Red Cell Distribution Width 15.2 % (11.5-17.5)
[2021-09-07 13:21] LABS: Erythrocyte Sedimentation Rate 17 mm/hr (0-30)
[2021-09-07 14:18] LABS: Blood Urea Nitrogen 25 mg/dl (7-17); Calcium 9.5 mg/dl (8.4-10.2); Carbon Dioxide 27 mmol/L (22.0-30.0); Chloride 106 mmol/L (98-107); Estimated Glomerular Filt Rate 56 ml/min (>60); GFR (African American) 68 ML/MIN (>60); Glucose 85 mg/dl (74-100); Sodium 140 mmol/L (136-145)
[2021-09-07 14:24] LABS: C-Reactive Protein 1.4 mg/L (0-4)
[2021-09-08 17:10] LABS: Antinuclear Antibodies, IFA Negative (.)
== END ==
PROVIDERS: Visit Provider Student in an Organized Health Care Education/Training Program
DX: M25.50 Pain in unspecified joint (principal)
CPT/HCPCS: 36415; 80048; 82728; 85025; 85651; 86038; 86140

== ENCOUNTER → 2021-09-29 12:57 | Outpatient (POV) | payer MEDICARE, MEDICAID, SELFPAY ==
[2021-09-29 13:20] VITALS: BP 137/83; PULSE 100; RESP 20; TEMP 36.2; O2SAT 95; BMI 31.2
--- NOTE | 2021-09-29 15:25 | HMH.PAINSOAP ---
[facility] Pain Management SOAP Note Subjective:: Patient is a pleasant 59-year-old female who presents today for follow-up. Patient is currently being treated for degenerative disc disease of lumbar spine with lumbar radiculopathy symptoms. Patient previously had an intrathecal pain pump with a dose of morphine 1.5 mg/day. This was explanted on January 19, 2021 per the patient's request. She states that this pump was not helping her pain. I did discuss with her previously that if she did well with the intrathecal pain pump trial, then she probably was not at a therapeutic dose yet with her morphine pump. We might have taken this pump prematurely per the patient's request. We previously have tried injective therapy that provided minimal relief. Patient also recently has undergone a spinal cord stimulator trial for her low back pain. This provided the patient 50 to 60% relief of symptoms. She was unsure if she wanted to pursue the stimulator. She is also prescribed Lyrica 150 mg twice a day by Lulu Noyola. Denies any side effects with this medication. When I last saw this patient, I discussed with her that we are limited to what we can do for her since she has already tried the intrathecal pain pump and a spinal cord stimulator. I did refer her to rheumatology but since her rheumatological labs were normal, rheumatology did not want to see her. We have reached out to you can rheumatology 1 more time to see if they can reconsider. Today, patient is complaining of worsening low back pain and bilateral upper buttock pain that radiates to bilateral legs. Patient states that she feels like she did not give the intrathecal pump a longer chance. She still does not want to move forward with the stimulator but wants to know if she can get try an intrathecal pain pump back. Daniele #[id number] with an active morphine equivalent of 0. Rates her pain as 8 out of 10. Review of Systems: General: No recent weight changes, no fever, no sleep disturbances Respiratory: No cough, no shortness of air, no recurring pulmonary infections Cardiovascular/peripheral vascular: No chest pain, no palpitations, no edema, no shortness of breath Gastrointestinal: No new onset incontinence, normal bowel movements reported Genitourinary: No new onset incontinence Musculoskeletal: Low back pain, bilateral hip pain Psychiatric: [Normal mood/affect] Neurological: [Denies weakness in extremities], [denies balance issues] Objective:: Physical Exam: General: Alert and oriented x3, no acute distress, pleasant and cooperative, [on room air] Lungs: Respirations even and unlabored, symmetrical chest expansion Eyes: PERRL Musculoskeletal: Flexion and extension of lumbar [spine] somewhat guarded secondary to pain, [antalgic gait noted]; bilateral SI are positive for PAMELA, Edmar's, Macon's, Gaenslen's, compression, and distraction. Neurological: Speech clear, no gross sensory deficit Assessment:: Degenerative disc disease of lumbar spine with lumbar radiculopathy symptoms, generalized joint pains, bilateral sacroiliitis Plan:: Patient continues to have significant pain throughout her body. Patient has tried and failed conservative therapy such as oral medication, injective therapy, physical therapy, and at home exercises for greater than 6 weeks. Patient has also failed intrathecal pain pump therapy that was explanted on 01/19/2021. Patient was on morphine 1.5 mg/day before explant. Patient has also tried spinal cord stimulator therapy. This only provided her 50 to 60% of relief. Patient does not want to move forward with this procedure. Today, patient is complaining of bilateral upper buttock pain that radiates to bilateral lower legs. She cannot tolerate any prolonged sitting, standing, and walking. Bilateral SI are positive for PAMELA, Edmar's, Macon's, Gaenslen's, compression, and distraction. We will schedule the patient for a bilateral SI injection. Risks and benefit
== END ==
PROVIDERS: Visit Provider Student in an Organized Health Care Education/Training Program
DX: M51.16 Intervertebral disc disorders with radiculopathy, lumbar region (principal); M46.1 Sacroiliitis, not elsewhere classified; M25.50 Pain in unspecified joint
CPT/HCPCS: 99212; G0463

== ENCOUNTER → 2021-10-24 14:01 | Outpatient (CLI) | payer MEDICARE, MEDICAID, SELFPAY ==
--- NOTE | 2021-10-24 14:02 | MM_ITS ---
PROCEDURE INFORMATION: Exam: MG Left Diagnostic Breast Tomosynthesis Exam date and time: 10/24/2021 2:10 PM Age: 61 years old Clinical indication: Six-month follow-up after left stereotactic biopsy, 04/25/2021 showing PASH. TECHNIQUE: Imaging protocol: Left Diagnostic tomosynthesis and 2D mammography including computer-aided detection (CAD) when performed. Unilateral or bilateral exam. COMPARISON: 1. MG MM CLIP PLACEMENT LT 04/25/2021 12:24 PM 2. MG MM DIG MAMM DX UNILAT LT CAD 03/29/2021 2:17 PM 3. MG MM DIG SCREENING MAMM BI W/CAD 02/22/2021 10:29 AM 4. MG DMDXUAVL DIG MAMM-DX UNI ADD VIEWS-LT 12/03/2013 2:26 PM FINDINGS: MAMMOGRAPHY: Breast composition: Mass: At the biopsy site in the upper outer quadrant posterior 3rd, less prominent mass, 0.7 cm, and likely fat containing suggesting component of fat necrosis post biopsy, with lateral biopsy clip. No suspicious mass. Architectural distortion: None. Calcifications: No suspicious calcifications. Asymmetric density: None. Skin thickening: None. Axillary adenopathy: None. Other: Loop recorder in the inner lower quadrant, limits evaluation and accentuates the importance of clinical breast exam. IMPRESSION: Less prominent mass in the upper outer quadrant, post biopsy. No mammographic evidence of malignancy. Annual screening mammogram due February 2022, unless otherwise clinically indicated. ASSESSMENT: BI-RADS Category 2: Benign
== END ==
PROVIDERS: PCP Physician Assistant; Visit Provider Nurse Practitioner Family
DX: R92.8 Other abnormal and inconclusive findings on diagnostic imaging of breast (principal)
CPT/HCPCS: 77061; 77065; G0279

== ENCOUNTER 2021-10-28 09:00 | Day surgery (SDC) | payer MEDICARE, MEDICAID, SELFPAY ==
[2021-10-28 09:08] VITALS: BP 118/84; BP 137/80; PULSE 77; PULSE 80; RESP 18; RESP 20; O2SAT 95; O2SAT 96; BMI 31.2
[2021-10-28 09:19] VITALS: BP 125/86; PULSE 74; RESP 18; O2SAT 97
[2021-10-28 09:20] VITALS: BP 129/84; PULSE 78; RESP 18; O2SAT 97
--- NOTE | 2021-10-28 09:35 | HMH.PMPROC ---
- Procedure Date: 10/28/21 Time: 09:35 Anesthesiologist:: Eber Liz MD Complications:: None Pre-procedure Diagnosis:: Sacroiliitis Post-procedure Diagnosis:: Same Indications for Procedure:: Patient is a pleasant 59-year-old white female who we are treating for low back pain with lumbar radiculopathy symptoms. She currently has an intrathecal morphine pain pump. She is doing well with her pump. She is tender over both SI joints. She has a positive Lawrence's test bilaterally. She has positive [place]'s test bilaterally. She is positive SI joint compression test bilaterally. We will do bilateral SI joint injections today to help her with her pain symptoms. Procedure Details:: B/L SI joint injection under fluoroscopy Informed consent was obtained and the risks and benefits of the procedure was explained to the patient. The patient was taken to the procedure room and placed prone on the procedure table. The patient was prepped using ChloraPrep. The skin and subcutaneous tissues overlying the SI joints were anesthetized using lidocaine. I placed a 22-gauge needle first in the left SI joint and second in the right SI joint. Needle placement was confirmed with dye. After this we injected 5 mL bupivacaine 0.25% and Depo-Medrol 40 mg into each SI joint. Patient tolerated the procedure well with no complication. Plan and Disposition:: We will follow-up with this patient in 2 weeks. Will reevaluate her symptoms at that time.
== END 2021-10-28 09:32 | disposition home or self-care (01) ==
LOC: SC.PAINP 09:01
PROVIDERS: PCP Physician Assistant; Visit Provider Anesthesiology
DX: M46.1 Sacroiliitis, not elsewhere classified (principal); F41.9 Anxiety disorder, unspecified; J44.9 Chronic obstructive pulmonary disease, unspecified; I25.10 Atherosclerotic heart disease of native coronary artery without angina pectoris; F32.A Depression, unspecified; E11.9 Type 2 diabetes mellitus without complications; K21.9 Gastro-esophageal reflux disease without esophagitis; E78.5 Hyperlipidemia, unspecified; I10 Essential (primary) hypertension; G43.909 Migraine, unspecified, not intractable, without status migrainosus; R00.2 Palpitations; M19.90 Unspecified osteoarthritis, unspecified site
CPT/HCPCS: 27096; G0260; J1030; Q9966

== ENCOUNTER → 2021-11-10 07:33 | Outpatient (CLI) | payer MEDICARE, MEDICAID, SELFPAY ==
[2021-11-09 17:56] LABS: Basophils # 0.1 K/mm3 (0-0.2); Basophils % 1.5 % (0.1-2.0); Eosinophils % 0.6 % (0.1-12.0); Hematocrit 41.9 % (37.0-47.0); Hemoglobin 13.9 g/dL (12.2-16.2); Lymphocytes % 25.9 % (10-50); Mean Corpuscular HGB Conc 33.3 g/dL (31.8-35.4); Mean Corpuscular Hemoglobin 29.7 pg (27.0-31.2); Mean Corpuscular Volume 89.4 fl (81-99); Mean Platelet Volume 9.9 fl (7.4-10.4); Monocytes # 0.7 K/mm3 (0.1-1.0); Neutrophils # 4.9 K/mm3 (1.8-7.8); Platelet Count 350 K/mm3 (142-424); Red Blood Count 4.69 M/mm3 (4.20-5.40); Red Cell Distribution Width 14.6 % (11.5-17.5); White Blood Count 7.7 K/mm3 (4.8-10.8)
[2021-11-09 18:47] LABS: Alanine Aminotransferase 28 U/L (12-78); Albumin Level 3.9 g/dl (3.5-5.0); Albumin/Globulin Ratio 1.3 (1.1-1.8); Alkaline Phosphatase 93 U/L (38-126); Anion Gap 13.2 mEq/L (5-15); Aspartate Amino Transferase 38 U/L (14-36); Bilirubin,Total 0.4 mg/dl (0.2-1.3); Blood Urea Nitrogen 24 mg/dl (7-17); Calcium 8.8 mg/dl (8.4-10.2); Carbon Dioxide 21 mmol/L (22.0-30.0); Chloride 105 mmol/L (98-107); Chol/HDL Ratio 2.1 (1-3.5); Cholesterol 208 mg/dl (140-200); Estimated Glomerular Filt Rate 63 ml/min (>60); GFR (African American) 77 ML/MIN (>60); Globulin 3.1 g/dL (1.3-3.2); Glucose 80 mg/dl (74-100); HDL Cholesterol 97 mg/dl (40-60); Potassium 4.2 mmoL/L (3.5-5.1); Sodium 135 mmol/L (136-145); Triglycerides 108 mg/dl (30-150); VLDL Cholesterol 22 mg/dL (0-40)
[2021-11-09 18:58] LABS: Direct LDL Cholesterol 81.02 mg/dL (100-129)
[2021-11-09 19:04] LABS: 25-OH Vitamin D, Total 56.9 ng/mL (30-100)
== END ==
PROVIDERS: PCP Physician Assistant; Visit Provider Physician Assistant
DX: Z86.19 Personal history of other infectious and parasitic diseases (principal); E66.9 Obesity, unspecified; R68.89 Other general symptoms and signs; K51.00 Ulcerative (chronic) pancolitis without complications; Z68.31 Body mass index [BMI] 31.0-31.9, adult
CPT/HCPCS: 80053; 80061; 82306; 84443; 85025; 87522; 87902

== ENCOUNTER → 2021-11-21 10:40 | Outpatient (POV) | payer MEDICARE, MEDICAID, SELFPAY ==
[2021-11-21 11:12] VITALS: BP 121/80; PULSE 116; RESP 18; TEMP 36.3; O2SAT 95; BMI 31.6
--- NOTE | 2021-11-21 12:57 | HMH.PAINSOAP ---
[facility] Pain Management SOAP Note Subjective:: Patient is a pleasant 59-year-old female presents today for follow-up. Patient is current being treated for degenerative disc disease of lumbar spine with lumbar radiculopathy symptoms. She presents today for follow-up after her bilateral SI injections that only provided a day and a half of relief. She continues to have pain on her low back that radiates to bilateral lower extremities. She rates her pain as 5 out of 10. Denies any loss of bowel or bladder functions. Denies any recent falls or traumas. Pt has been tried on intrathecal pain pump and SCS that provided minimal relief. We explanted her pain pump in the past. Lately, she says that she is considering trying the intrathecal pain pump again stating that she need not give it enough chance to work. Interval History: Patient had an intrathecal pain pump Morphine 1.5mg/day that was explanted on Jan 19, 2021 per the patient's request. She says that it was not helping as much. We tried her on SCS. She only had 50-60% relief after her trial. We did not move forward for permanent placement. Patient is prescribed pregabalin 150mg BID by Lulu Noyola. Daniele [id number], MEQ 0. Review of Systems: General: No recent weight changes, no fever, no sleep disturbances Respiratory: No cough, no shortness of air, no recurring pulmonary infections Cardiovascular/peripheral vascular: No chest pain, no palpitations, no edema, no shortness of breath Gastrointestinal: No new onset incontinence, normal bowel movements reported Genitourinary: No new onset incontinence Musculoskeletal: Low back pain Psychiatric: [Normal mood/affect] Neurological: [Denies weakness in extremities], [denies balance issues] Objective:: Physical Exam: General: Alert and oriented x3, no acute distress, pleasant and cooperative Lungs: Respirations even and unlabored, symmetrical chest expansion Eyes: PERRL Musculoskeletal: Flexion and extension of lumbar [spine] somewhat guarded secondary to pain, [antalgic gait noted] Neurological: Speech clear, no gross sensory deficit Assessment:: Degenerative disease of lumbar spine with lumbar radiculopathy symptoms, generalized joint pains, bilateral sacroiliitis Plan:: Patient had minimal relief after the bilateral SI injection. She is wanting to know if we can try her again for the intrathecal pain pump. I have discussed this patient with Dr. Liz and he is okay in trying the patient for the intrathecal pain pump therapy again. Before explanting the pt in January 2021, she was on Morphine 1.5mg/day. We will try to seek approval to schedule the patient for intrathecal pain pump trial. Patient has been instructed to contact the clinic with any concerns before the next appointment. Dr. Liz has reviewed this note and agrees with this plan of care. This note was dictated using voice recognition software and make contain errors or omissions. [facility] History Medical History: Reports:: Anxiety, Arrhythmia, Asthma, Chronic Obstructive Pulmonary Disease (COPD), Coronary Artery Disease, Depression, Gastroesophageal Reflux Disease(GERD), Hyperlipidemia, Hypertension, Migraine, Palpitations Denies:: Cancer, Diabetes Mellitus Type 1, Diabetes Mellitus Type 2, Internal Pacemaker, MRSA, Seizures *Have you ever received a pneumonia vaccine?: Yes *Have you received a flu vaccine this season?: Yes Other Medical History: Reports: Arthritis, Fibromyalgia, Hormone Therapy, Hypothyroidism, Liver Disease, Thyroid Disease, Other. Denies: Blood Transfusion Reaction Laterality Cases: Left: Other, Right: Arthroscopy Knee Other Surgeries: Yes: No Previous Surgery, Appendectomy, BSO, Cancer Surgery (thyroid), Cardiac Catheterization, Cholecystectomy, Colonoscopy, , EGD, Hysterectomy-Total, Thyroidectomy, Other. No: Pacemaker Amputation: No Fractures: Yes (2018- FX. LEFT ANKLE 2020 fracture Right Ankle hx surgery) - *Social History Smoking Status: Never smoker Alcoh
== END ==
PROVIDERS: Visit Provider Student in an Organized Health Care Education/Training Program
DX: M51.16 Intervertebral disc disorders with radiculopathy, lumbar region (principal); M19.90 Unspecified osteoarthritis, unspecified site; M79.7 Fibromyalgia
CPT/HCPCS: 99212; G0463

== ENCOUNTER → 2021-12-12 13:00 | Outpatient (POV) | payer MEDICARE, MEDICAID, SELFPAY ==
--- NOTE | 2021-12-12 13:35 | HMH.PAINSOAP ---
[facility] Pain Management SOAP Note Subjective:: Patient is a pleasant 62-year-old female who presents today for follow-up. Patient is current being treated for degenerative disc disease of lumbar spine with lumbar radiculopathy symptoms. We have previously tried to manage this patient with intrathecal pain pump therapy. This was explanted on January 19, 2021 Kristi penaloza patient states that it is not helping her as much. We also tried her on spinal cord stimulator therapy but she only had 50 to 60% relief after her trial. We have tried different injective therapy with this patient in the past including SI and lumbar epidural steroid injection. She had minimal relief with her SI injection. She has not had any recent lumbar epidural steroid injection. She presents today with worsening low back pain that radiates to bilateral lower extremities. She does take Lyrica 150 mg twice a day that is prescribed by her PCP. She states that this medication is not helping her peripheral neuropathy. She wants to know if she can get an injection scheduled. Rates her pain today as 6 out of 10. She does not take any OTC medications. She states that she has severe heartburn. Daniele [phone] with an active morphine equivalent of 0. Review of Systems: General: No recent weight changes, no fever, no sleep disturbances Respiratory: No cough, no shortness of air, no recurring pulmonary infections Cardiovascular/peripheral vascular: No chest pain, no palpitations, no edema, no shortness of breath Gastrointestinal: No new onset incontinence, normal bowel movements reported Genitourinary: No new onset incontinence Musculoskeletal: Low back pain Psychiatric: [Normal mood/affect] Neurological: [Denies weakness in extremities], [denies balance issues] Objective:: Physical Exam: General: Alert and oriented x3, no acute distress, pleasant and cooperative Lungs: Respirations even and unlabored, symmetrical chest expansion Eyes: PERRL Musculoskeletal: Flexion and extension of lumbar [spine] somewhat guarded secondary to pain, [antalgic gait noted]; tender to palpation around bilateral lumbar paraspinous at L1-L3 levels Neurological: Speech clear, no gross sensory deficit Assessment:: Degenerative disc disease of the lumbar spine with lumbar radiculopathy symptoms, myofascial pain Plan:: Patient presents today with worsening low back pain that radiates to bilateral lower extremities. She has tried and failed conservative therapies such as oral medication, physical therapy, and home exercises for greater than 6 weeks. We will schedule this patient for a lumbar epidural steroid injection at L3-L4. Risk and benefits have been discussed with the patient. Patient would like to proceed with this procedure. Patient is not on any blood thinners. Patient is also tender to palpation around the bilateral lumbar paraspinous at the L1-L3 levels. If the patient does not get significant relief from the epidural injection, we will consider scheduling the patient for trigger point injections in this area. Patient has been instructed to contact the clinic with any concerns before the next appointment. Dr. Liz has reviewed this note and agrees with this plan of care. This note was dictated using voice recognition software and make contain errors or omissions. [facility] History Medical History: Reports:: Anxiety, Arrhythmia, Asthma, Chronic Obstructive Pulmonary Disease (COPD), Coronary Artery Disease, Depression, Gastroesophageal Reflux Disease(GERD), Hyperlipidemia, Hypertension, Migraine, Palpitations Denies:: Cancer, Diabetes Mellitus Type 1, Diabetes Mellitus Type 2, Internal Pacemaker, MRSA, Seizures *Have you ever received a pneumonia vaccine?: Yes *Have you received a flu vaccine this season?: Yes Other Medical History: Reports: Arthritis, Fibromyalgia, Hormone Therapy, Hypothyroidism, Liver Disease, Thyroid Disease, Other. Denies: Blood Transfusion Reaction Laterality Cases: Left: Other,
[2021-12-12 14:19] VITALS: BP 138/88; PULSE 100; RESP 20; TEMP 36.8; O2SAT 98; BMI 31.7
== END ==
PROVIDERS: Visit Provider Student in an Organized Health Care Education/Training Program
DX: M51.16 Intervertebral disc disorders with radiculopathy, lumbar region (principal); M60.9 Myositis, unspecified
CPT/HCPCS: 99212; G0463

== ENCOUNTER 2021-12-23 11:22 | Day surgery (SDC) | payer MEDICARE, MEDICAID, SELFPAY ==
[2021-12-23 11:27] VITALS: BP 138/96; PULSE 90; RESP 20
[2021-12-23 11:33] VITALS: BP 124/83; PULSE 90; RESP 18; TEMP 36.4; O2SAT 98; BMI 31.8
--- NOTE | 2021-12-23 11:41 | HMH.PMPROC ---
- Procedure Date: 12/23/21 Time: 11:41 Anesthesiologist:: Justus Sin CRNA Complications:: None Pre-procedure Diagnosis:: Degenerative disc disease lumbar spine multilevels. Lumbar radiculopathy symptoms. Post-procedure Diagnosis:: Same Indications for Procedure:: Very pleasant 62-year-old female that presents our clinic today for lumbar epidural steroid injection L3-4 level. Patient is having some increased pain in the low back as well as bilateral hip and leg radicular symptoms. Neuropathy lower legs. She has had epidural steroid injections in the past. She rates her pain 7/10. Procedure Details:: Procedure: Lumbar epidural steroid injection under fluoroscopy Informed consent was obtained and the risks and benefits of the procedure were explained to the patient. The patient was taken to the procedure room and noninvasive monitors placed, including noninvasive blood pressure cuff and pulse oximeter. The back was viewed using C-arm Fluoroscopy and prepped using Betadine as a cleansing solution and the L4-L5 interspace was palpated. Skin and subcutaneous tissues were anesthetized using lidocaine 1.5% and a 25-gauge needle. After this, an 18-gauge Touhy epidural needle was placed into the L4-L5 interspace and advanced using fluoroscopic guidance and loss of resistance to air until the epidural space was encountered. After confirmation of needle placement in the epidural space, with dye, a solution containing lidocaine 1.5%, 4 mL and Depo-Medrol 80 mg were incrementally injected into the lumbar epidural space. The patient tolerated the procedure well with no complications. The patient was observed in the Pain Clinic and then discharged home neurologically intact. Plan and Disposition:: Patient was discharged with out incident
[2021-12-23 11:48] VITALS: BP 122/92; PULSE 85; RESP 18; O2SAT 97
== END 2021-12-23 11:49 | disposition home or self-care (01) ==
LOC: SC.PAINP 11:25
PROVIDERS: PCP Physician Assistant; Visit Provider Nurse Anesthetist, Certified Registered
DX: M51.16 Intervertebral disc disorders with radiculopathy, lumbar region (principal); M19.90 Unspecified osteoarthritis, unspecified site
CPT/HCPCS: 62323; J1040

== ENCOUNTER → 2022-01-25 10:47 | Outpatient (POV) | payer MEDICARE, MEDICAID, SELFPAY ==
[2022-01-25 10:58] VITALS: BP 132/87; PULSE 86; RESP 17; TEMP 36.6; O2SAT 96; BMI 31.7
--- NOTE | 2022-01-25 12:51 | EXP.PAIN.SOA ---
[facility] Pain Management SOAP Note Subjective:: Patient is a pleasant 61-year-old female who presents today for follow-up of lumbar epidural steroid injection on 12/23/2021. We are currently treating the patient for degenerative disc disease of lumbar spine with lumbar radiculopathy symptoms, myofascial pain, sacroiliitis. Patient states that she is gotten minimal relief with this last injection and it only lasted for about a day and a half. Today she rates her pain an 8 out of 10 and states the pain is in her low back and increasing pain on her right SI area. Patient denies any new trauma or injury to the site. She denies any change to the location or type of pain she experiences. Patient states this pain is a sharp stabbing pain that runs down her right leg and stops at her knee on most occasions. Patient states the pain is worse with standing and is affecting her sleep. Patient has seen physical therapy years ago however it only provided minimal relief. Patient does do home exercising and stretching with minimal relief of her symptoms. She is also tried ice and heat to the site with some relief as well as lidocaine patches. Patient states that her injections have only provided little to no relief. We have previously tried to manage this patient with a intrathecal pain pump therapy. It was explanted on January 19, 2021 due to the patient feeling that it was not adequately helping her symptoms. We have also tried a spinal cord stimulator therapy however she only got about 50 to 60% relief. We have tried multiple injections with her including SI and lumbar epidural steroid injections. Patient is currently managed with Lyrica 150 mg twice a day by Lulu Noyola. Patient denies any side effects to this medication. Her Daniele is [phone]. Is been reviewed and appropriate. Review of Systems: General: No recent weight changes, no fever, no sleep disturbances Respiratory: No cough, no shortness of air, no recurring pulmonary infections Cardiovascular/peripheral vascular: No chest pain, no palpitations, no edema, no shortness of breath Gastrointestinal: No new onset incontinence, normal bowel movements reported Genitourinary: No new onset incontinence Musculoskeletal: Low back pain, right SI pain Psychiatric: [Normal mood/affect] Neurological: [Denies weakness in extremities], [denies balance issues] Objective:: Physical Exam: General: Alert and oriented x3, no acute distress, pleasant and cooperative Lungs: Respirations even and unlabored, symmetrical chest expansion Eyes: PERRL Musculoskeletal: Flexion and extension of lumbar [spine] somewhat guarded secondary to pain, [antalgic gait noted]. 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 Patient did have extreme point tenderness along right SI and had a positive right Lawrence's, Edmar's, Gaenslen's, compression and distraction exam. I have discussed with the patient regarding her right SI however her previous SI injections have given minimal to no relief. I did discuss with the patient today regarding trying a right cluneal nerve block. Risk and benefits were discussed with the patient. She would like to proceed forward with this injection. I will also order the patient a compounding cream at today's visit. We will schedule the patient for a right cluneal nerve block injection. Patient has been instructed to contact the clinic with any concerns before the next appointment. Dr. Liz has reviewed this note and agrees with this plan of care. This note was dictated using voice recognition soft
== END ==
PROVIDERS: PCP Physician Assistant; Visit Provider Nurse Practitioner Family
DX: M51.16 Intervertebral disc disorders with radiculopathy, lumbar region (principal); M79.18 Myalgia, other site; M46.1 Sacroiliitis, not elsewhere classified
CPT/HCPCS: 99212; G0463

== ENCOUNTER 2022-02-28 09:32 | Day surgery (SDC) | payer MEDICARE, MEDICAID, SELFPAY ==
[2022-02-28 09:54] VITALS: BP 135/90; PULSE 90; RESP 18; TEMP 36.8; O2SAT 96; BMI 30.9
[2022-02-28 10:16] VITALS: BP 139/58; PULSE 62; RESP 18
[2022-02-28 10:20] VITALS: BP 140/83; PULSE 85; RESP 18; O2SAT 93
--- NOTE | 2022-02-28 10:33 | EXP.PAIN.PRO ---
Procedure Date: 02/28/22 Time: 10:33 Anesthesiologist:: Justus Sin CRNA Complications:: None Pre-procedure Diagnosis:: Superior cluneal nerve entrapment Post-procedure Diagnosis:: Same Indications for Procedure:: Patient is a pleasant 62-year-old female who returns our injection clinic for right superior cluneal nerve block. This patient's had right SI joint injections with significant relief. However, very temporary. Relief lasting several days. She presents our clinic today with similar SI joint pain. However, it seems to be superior to the joint and more lateral. We will inject the right superior cluneal nerve. Procedure Details:: Details of the procedure were explained to the patient. The patient taken the procedure room placed in the prone position. The area over the right posterior hip area was cleaned using chlorhexidine as a cleansing solution. Using fluoroscopy guidance a marker was placed over the right superior posterior iliac crest. The skin and subcutaneous tissue was anesthetized using 1% lidocaine and 25-gauge needle. At this time using fluoroscopy guidance at 22-gauge 3-1/2 inches spinal needle was used to access the superior posterior iliac crest. In a fanning fashion 2 cc of an injection containing 1% lidocaine and 40 mg of Depo-Medrol was injected in 3 separate areas covering the superior posterior iliac crest. Needle was removed. Band-Aid applied. Patient tolerated the procedure without difficulty. Plan and Disposition:: Patient was discharged without incident.
== END 2022-02-28 10:20 | disposition home or self-care (01) ==
PROVIDERS: PCP Physician Assistant; Visit Provider Nurse Anesthetist, Certified Registered
DX: G58.8 Other specified mononeuropathies (principal); M51.16 Intervertebral disc disorders with radiculopathy, lumbar region
CPT/HCPCS: 64450; J1040

== ENCOUNTER → 2022-03-16 14:21 | Outpatient (POV) | payer MEDICARE, MEDICAID, SELFPAY ==
[2022-03-16 14:29] VITALS: BP 107/85; PULSE 105; RESP 18; TEMP 37.1; O2SAT 99; BMI 31.7
--- NOTE | 2022-03-16 16:57 | EXP.PAIN.SOA ---
[facility] Pain Management SOAP Note Subjective:: Patient is a pleasant 62-year-old female who presents today for follow-up after a right superior cluneal nerve block on 02/28/2022. Patient is currently being treated for right hip pain, right sacroiliitis, right superior cluneal nerve entrapment. After this injection, patient had significant relief of 80 to 90% for about 10 days. She was able to increase her activity during that time. Today, patient states that her pain is slowly coming back to baseline. She rates her pain today 7 out of 10. We previously have been on SI injections and trochanteric bursa injections with the patient the provided minimal relief. She cannot tolerate any prolonged sitting, standing, and walking. Daniele [phone] with an active morphine equivalent of 0. She takes OTC medications for pain. Review of Systems: General: No recent weight changes, no fever, no sleep disturbances Respiratory: No cough, no shortness of air, no recurring pulmonary infections Cardiovascular/peripheral vascular: No chest pain, no palpitations, no edema, no shortness of breath Gastrointestinal: No new onset incontinence, normal bowel movements reported Genitourinary: No new onset incontinence Musculoskeletal: Right hip pain Psychiatric: [Normal mood/affect] Neurological: [Denies weakness in extremities], [denies balance issues] Objective:: Physical Exam: General: Alert and oriented x3, no acute distress, pleasant and cooperative Lungs: Respirations even and unlabored, symmetrical chest expansion Eyes: PERRL Musculoskeletal: Flexion and extension of lumbar [spine] somewhat guarded secondary to pain, [antalgic gait noted]; tender to palpation to the right upper buttock that is more superior and lateral from the SI joint Neurological: Speech clear, no gross sensory deficit Assessment:: Right superior cluneal nerve entrapment, sacroiliitis, trochanteric bursitis, right hip pain, low back pain Plan:: Patient is significant relief of 80 to 90% after a right superior cluneal nerve block. Patient is almost back to baseline with her pain. We will schedule the patient for a repeat diagnostic superior cluneal nerve block #2. Patient has tried and failed conservative therapies in past such as oral medication, physical therapy, home exercises for greater than 6 weeks. If the patient gets significant relief again from this injection, we will schedule the patient for a therapeutic superior cluneal nerve RFA. Patient has been instructed to contact the clinic with any concerns before the next appointment. Dr. Liz has reviewed this note and agrees with this plan of care. This note was dictated using voice recognition software and make contain errors or omissions. [facility] Medical History Anxiety Chronic pain disorder Constipation Depression Dyspnea GERD (gastroesophageal reflux disease) Hormone replacement therapy (HRT) Hypothyroidism Liver lesion Lumbar disc disease with radiculopathy Lumbar disc disease with radiculopathy Lumbar disc disease with radiculopathy Migraine headache Osteopenia Syncope Family History (Updated 02/28/22 @ 09:58 by Kayla Griffiths, [place]) Other No significant family history Social History (Updated 02/28/22 @ 09:58 by Kayla Griffiths, [place]) Smoking Status: Never smoker second hand exposure: No alcohol intake: never substance use type: denies use current occupational status: other Travel in the last 8 weeks: None household members: spouse housing: house current occupational exposures/hazards: No caffeine: Yes
== END ==
PROVIDERS: Visit Provider Student in an Organized Health Care Education/Training Program
DX: G58.8 Other specified mononeuropathies (principal); M46.1 Sacroiliitis, not elsewhere classified; M70.60 Trochanteric bursitis, unspecified hip; M54.50 Low back pain, unspecified
CPT/HCPCS: 99212; G0463

== ENCOUNTER 2022-04-21 08:36 | Day surgery (SDC) | payer MEDICARE, MEDICAID, SELFPAY ==
[2022-04-21 08:47] VITALS: BP 122/83; PULSE 79; RESP 18; O2SAT 97; BMI 31.7
[2022-04-21 09:04] VITALS: BP 125/85; PULSE 84; RESP 18; O2SAT 96
[2022-04-21 09:09] VITALS: BP 130/87; PULSE 88; O2SAT 94
--- NOTE | 2022-04-21 09:10 | EXP.PAIN.PRO ---
Procedure Date: 04/21/22 Time: 09:45 Anesthesiologist:: Justus Sin CRNA Complications:: None Pre-procedure Diagnosis:: Right Posterior Hip Pain Post-procedure Diagnosis:: Same Indications for Procedure:: Patient has posterior right posterior hip pain for over a year. She has had multiple right sacroiliac joint injections. Each injection in the right SI joint has produced significant improvement for the duration of the numbing medicine. However, once the numbing medicine wears off her pain returns in its entirety. She rates the pain 10/10. She has extreme point tenderness over the superior portion of the sacral iliac joint. Today she presents for right superior cluneal nerve block. Procedure Details:: Details of the procedure were explained to the patient. The patient was taken the procedure room placed in the prone position. The area over the right posterior iliac crest was cleaned using chlorhexidine as a cleansing solution. Using fluoroscopy guidance a 3 and half inch 22-gauge spinal needle was used to access the upper arch of the posterior iliac crest. In a fanning fashion spanning 3 to 4 cm the posterior iliac crest arch was injected using 40 mg of Depo-Medrol, 4 cc of 1% lidocaine, 4 cc of 0.25% Marcaine. Patient tolerated the procedure without difficulty. There are no complications. Plan and Disposition:: I spent several minutes with this patient post procedure. Explained to her in detail when she returns for her follow-up visit to report on the degree of relief while the numbing medicine was present. This would last 3 to 4 hours. She understands. I answered her questions. She will return for follow-up visit.
== END 2022-04-21 09:11 | disposition home or self-care (01) ==
PROVIDERS: PCP Physician Assistant; Visit Provider Nurse Anesthetist, Certified Registered
DX: M25.551 Pain in right hip (principal); G58.8 Other specified mononeuropathies
CPT/HCPCS: 64450; J1040

== ENCOUNTER → 2022-05-23 08:59 | Outpatient (CLI) | payer MEDICARE, MEDICAID, SELFPAY ==
[2022-05-23 10:17] LABS: Free T4 (Free Thyroxine) 0.79 ng/dl (0.78-2.19)
[2022-05-23 10:18] LABS: Triiodothryronine (T3) Uptake 29 % (23.5-40.5)
[2022-05-23 10:32] LABS: Thyroid Stimulating Hormone 4.36 uIU/mL (0.465-4.68)
[2022-05-24 10:20] LABS: Insulin Level Total 13.1 uIU/mL (2.6-24.9); Progesterone 0.2 ng/mL (.); Testosterone,Total <3 ng/dL (3-67); Thyroid Peroxidase Antibodies <9 IU/mL (0-34)
[2022-05-25 15:10] LABS: Calcitonin <2.0 pg/mL (0.0-5.0)
[2022-05-25 22:32] LABS: Estrogen 65 pg/mL (40-244)
[2022-05-26 10:13] LABS: Thyroid Stimulating Immunoglob <0.10 IU/L (0.00-0.55)
== END ==
PROVIDERS: PCP Physician Assistant; Visit Provider Physician Assistant
DX: E03.9 Hypothyroidism, unspecified; F41.9 Anxiety disorder, unspecified; E66.9 Obesity, unspecified; Z68.32 Body mass index [BMI] 32.0-32.9, adult
CPT/HCPCS: 36415; 82308; 82533; 82672; 83525; 84144; 84403; 84439; 84443; 84445; 84479; 86376

== ENCOUNTER → 2022-05-25 14:31 | Outpatient (POV) | payer MEDICARE, MEDICAID, SELFPAY ==
[2022-05-25 14:48] VITALS: BP 120/78; PULSE 111; RESP 19; O2SAT 99; BMI 33.8
--- NOTE | 2022-05-25 16:17 | EXP.PAIN.SOA ---
[facility] Pain Management SOAP Note Subjective:: Patient is a pleasant 62-year-old female who presents today for follow-up. Patient is currently being treated for degenerative disc disease of lumbar spine with and radiculopathy symptoms, superior cluneal nerve entrapment, sacroiliitis, greater trochanteric bursitis, chronic back pain. We have been managing this patient for a few years now for back pain. She has tried several conservative therapies such as oral medication, physical therapy, and home exercises all provided minimal relief. She has also tried and failed SCS therapy and intrathecal pain pump therapy. More recently, she had two rounds of right superior cluneal nerve blocks that provided 70-80% relief for less than a week. Today, she states that she does not want any more injections. She is also hurting a lot on her left side. Rates pain today as 6/10. For pain, she is prescribed lyrica 150mg BID that is prescribed by her PCP. Review of Systems: General: No recent weight changes, no fever, no sleep disturbances Respiratory: No cough, no shortness of air, no recurring pulmonary infections Cardiovascular/peripheral vascular: No chest pain, no palpitations, no edema, no shortness of breath Gastrointestinal: No new onset incontinence, normal bowel movements reported Genitourinary: No new onset incontinence Musculoskeletal: Low back pain Psychiatric: [Normal mood/affect] Neurological: [Denies weakness in extremities], [denies balance issues] Objective:: Physical Exam: General: Alert and oriented x3, no acute distress, pleasant and cooperative Lungs: Respirations even and unlabored, symmetrical chest expansion Eyes: PERRL Musculoskeletal: Flexion and extension of lumbar [spine] somewhat guarded secondary to pain, [antalgic gait noted] Neurological: Speech clear, no gross sensory deficit Assessment:: Degenerative disease of lumbar spine lumbar radiculopathy symptoms, sacroiliitis, superior cluneal nerve entrapment Plan:: Patient has exhausted a lot of our interventions including injections, SCS therapy, and intrathecal pain pump therapy. She did well with two rounds of superior cluneal nerve block on her right side but she is not wanting to repeat any injections or ablations. She is also hurting a lot on her left side now too. Will schedule the patient's next follow up with Dr. Liz. Patient is tender to palpation all over her back. Will start patient on prednisone 20mg BID x5 days and ketorolac 10mg TID x5days. Patient has been instructed to contact the clinic with any concerns before the next appointment. Dr. Liz has reviewed this note and agrees with this plan of care. This note was dictated using voice recognition software and make contain errors or omissions. [facility] Disclaimer: The information contained in this section may have been updated after the patient was seen, as this information can be updated by other users. Medical History Anxiety Chronic pain disorder Constipation Depression Dyspnea GERD (gastroesophageal reflux disease) Hormone replacement therapy (HRT) Hypothyroidism Liver lesion 3. There are several enhancing lesions of the liver. Differential diagnosis would include enhancing metastatic foci or multifocal hepatocellular carcinoma. These lesions are not typical for hemangiomas with the enhancement being central and focal as opposed to the peripheral enhancement. Hepatic carcinoid is also included in the differential diagnosis. Suggest outpatient CT of the liver without and with contrast with three-phase post enhancement images Lumbar disc disease with radiculopathy Lumbar disc disease with radiculopathy Lumbar disc disease with radiculopathy Migraine headache Osteopenia Syncope Family History Other No significant family history Social History Smoking St
== END | disposition home or self-care (01) ==
PROVIDERS: PCP Physician Assistant; Visit Provider Student in an Organized Health Care Education/Training Program
DX: M51.16 Intervertebral disc disorders with radiculopathy, lumbar region (principal); M46.1 Sacroiliitis, not elsewhere classified; G58.8 Other specified mononeuropathies
CPT/HCPCS: 99212; G0463

== ENCOUNTER → 2022-07-10 12:56 | Outpatient (POV) | payer MEDICARE, MEDICAID, SELFPAY ==
[2022-07-10 13:22] VITALS: BP 124/89; PULSE 100; RESP 18; O2SAT 98; BMI 32.9
--- NOTE | 2022-07-10 13:22 | EXP.PAIN.SOA ---
[facility] Pain Management SOAP Note Subjective:: Patient is a pleasant 64-year-old female who presents today for follow-up.? We are currently treating the patient for degenerative joint disease of cervical and lumbar spine with cervical and lumbar radiculopathy symptoms, postlaminectomy syndrome lumbar spine, neck pain, headache, right shoulder pain.? Patient rates her pain today a 7 out of 10.? Patient denies any new trauma or injury.? Patient denies any change to location or type of pain she experiences.? Patient does state that she is experiencing more low back and sciatic issues that is been going on for over a month.? Patient does describe this as a aching, throbbing sensation that is worse with increased activity.? Patient is currently managed with Lyrica 150 mg twice daily and lorazepam 0.5 mg twice a day by her primary care provider.? Patient denies any side effects from this medication.? Patient has tried multiple injections in the past including epidurals and cluneal blocks however she states she did not get significant relief.? Patient has also tried and failed spinal cord stimulator therapy and intrathecal pain pump therapy.? Patient states she is not interested in any additional injections.? Patient denies seeing any neurosurgery however she is not interested in back surgery at this time.? Her Daniele is [phone].? Its been reviewed and appropriate. Review of Systems: General: No recent weight changes, no fever, no sleep disturbances Respiratory: No cough, no shortness of air, no recurring pulmonary infections Cardiovascular/peripheral vascular: No chest pain, no palpitations,? no edema, no shortness of breath Gastrointestinal: No new onset incontinence, normal bowel movements reported Genitourinary: No new onset incontinence Musculoskeletal: Low back pain Psychiatric: [Normal mood/affect] Neurological: [Denies weakness in extremities], [denies balance issues] Objective:: Objective:: Physical Exam: General: Alert and oriented x3, no acute distress, pleasant and cooperative Lungs: Respirations even and unlabored, symmetrical chest expansion Eyes: PERRL Musculoskeletal: Flexion and extension of lumbar [spine] somewhat guarded secondary to pain, [antalgic gait noted] Neurological: Speech clear,? no gross sensory deficit ORT score updated with low risk Assessment:: Assessment:: degenerative joint disease of cervical and lumbar spine with cervical and lumbar radiculopathy symptoms, postlaminectomy syndrome lumbar spine, neck pain, headache, right shoulder pain, superior cluneal nerve entrapment, sacroiliitis, greater trochanteric bursitis Plan:: Plan:: Patient continues to experience significant pain in her low back with radiating symptoms.? I have discussed with the patient regarding starting a compounding cream.? Patient agrees with this plan of care.? I will send in the order at today's visit.? I have also counseled the patient with her significant history of trying multiple injections along with SCS therapy and intrathecal therapy with no additional improvement that it may be beneficial to follow-up with Dr. Durán for her next visit.? I have also discussed with the patient that I can send a referral to neurosurgery for second opinion however patient declines at this time.? Patient will return to clinic in 1 month for reevaluation of symptoms and plan of care. Patient has been instructed to contact the clinic with any concerns before the next appointment.? Dr. Liz has reviewed this note and agrees with this plan of care.? This note was dictated using voice recognition software and make contain errors or omissions. [facility] Disclaimer: The information contained in this section may have been updated after the patient was seen, as this information can be updated by other users. Medical History Anxiety Chronic pain disorder Constipation Depression Dyspnea GERD (gastroesophageal reflux disease) Crista
== END ==
PROVIDERS: PCP Physician Assistant; Visit Provider Nurse Practitioner Family
DX: M51.16 Intervertebral disc disorders with radiculopathy, lumbar region (principal); M50.10 Cervical disc disorder with radiculopathy, unspecified cervical region; M96.1 Postlaminectomy syndrome, not elsewhere classified; M25.511 Pain in right shoulder; R51.9 Headache, unspecified; M46.1 Sacroiliitis, not elsewhere classified; M70.60 Trochanteric bursitis, unspecified hip; G58.8 Other specified mononeuropathies
CPT/HCPCS: 99212; G0463

== ENCOUNTER → 2022-10-05 11:44 | Outpatient (CLI) | payer MEDICARE, MEDICAID, SELFPAY ==
[2022-10-05 13:23] LABS: Basophils % 0.2 % (0.1-2.0); Eosinophils # 0.1 K/mm3 (0.0-0.4); Eosinophils % 1.6 % (0.1-12.0); Hematocrit 38.5 % (37.0-47.0); Hemoglobin 12.2 g/dL (12.2-16.2); Lymphocytes # 1.3 K/mm3 (0.7-4.5); Lymphocytes % 35.6 % (10-50); Mean Corpuscular HGB Conc 31.6 g/dL (31.8-35.4); Mean Corpuscular Hemoglobin 26.6 pg (27.0-31.2); Mean Corpuscular Volume 84.1 fl (81-99); Mean Platelet Volume 8.5 fl (7.4-10.4); Monocytes # 0.5 K/mm3 (0.1-1.0); Monocytes % 13.3 % (1.7-9.3); Neutrophils # 1.7 K/mm3 (1.8-7.8); Neutrophils % 49.3 % (37.0-80.0); Platelet Count 262 K/mm3 (142-424); Red Blood Count 4.58 M/mm3 (4.20-5.40); Red Cell Distribution Width 15.4 % (11.5-17.5); White Blood Count 3.5 K/mm3 (4.8-10.8)
[2022-10-05 13:51] LABS: Chloride 101 mmol/L (98-107)
[2022-10-05 13:52] LABS: Potassium 3.6 mmoL/L (3.5-5.1); Sodium 142 mmol/L (136-145)
[2022-10-05 13:54] LABS: Alanine Aminotransferase 45 U/L (12-78); Alkaline Phosphatase 84 U/L (38-126); Anion Gap 18.6 mEq/L (5-15); Aspartate Amino Transferase 52 U/L (14-36); Bilirubin,Indirect 0.5 mg/dL (0.0-0.9); Bilirubin,Total 0.5 mg/dl (0.2-1.3); Bilirubin,Unconjugated 0.5 mg/dL (0.0-1.1); Blood Urea Nitrogen 14 mg/dl (7-17); Carbon Dioxide 26 mmol/L (22.0-30.0); Cholesterol 138 mg/dl (140-200); Estimated Glomerular Filt Rate 85 ml/min (>60); GFR (African American) 102 ML/MIN (>60); Glucose 94 mg/dl (74-100); Triglycerides 137 mg/dl (30-150); VLDL Cholesterol 27 mg/dL (0-40)
[2022-10-05 13:55] LABS: Albumin Level 3.4 g/dl (3.5-5.0); Calcium 9.2 mg/dl (8.4-10.2); Magnesium 1.2 mg/dl (1.6-2.3); Total Protein,Serum 5.8 g/dl (6.3-8.2)
[2022-10-05 14:06] LABS: Direct LDL Cholesterol 75.76 mg/dL (100-129)
[2022-10-05 14:25] LABS: Free T4 (Free Thyroxine) 1.71 ng/dl (0.78-2.19)
[2022-10-05 14:26] LABS: Thyroid Stimulating Hormone < 0.02 uIU/mL (0.465-4.68)
[2022-10-05 15:20] LABS: HDL Cholesterol 46 mg/dl (40-60)
[2022-10-05 16:00] LABS: T4 (Thyroxine) 11.9 ug/dl (5.53-11.0)
[2022-10-15 17:55] LABS: 1,25 Dihydroxy Vitamin D 18 pg/mL (.); 1,25-Dihydroxy, Vitamin D-2 <10 pg/mL (.); 1,25-Dihydroxy, Vitamin D-3 <10 pg/mL (.)
== END ==
PROVIDERS: PCP Physician Assistant; Visit Provider Physician Assistant
DX: E78.2 Mixed hyperlipidemia (principal); I10 Essential (primary) hypertension; I25.118 Atherosclerotic heart disease of native coronary artery with other forms of angina pectoris; R00.0 Tachycardia, unspecified; R94.31 Abnormal electrocardiogram [ECG] [EKG]; E05.90 Thyrotoxicosis, unspecified without thyrotoxic crisis or storm; F41.9 Anxiety disorder, unspecified
CPT/HCPCS: 36415; 80048; 80061; 80076; 82652; 83735; 84436; 84439; 84443; 85025

== ENCOUNTER 2022-10-05 16:06 | Emergency (ER) | payer MEDICARE, MEDICAID, SELFPAY ==
--- NOTE | 2022-10-05 16:07 | ECG_ITS ---
APPROVED REPORT Exam: Resting ECG HR:118 bpm ECG Measurements Heart Rate 118 AXES DE 151 P 57 QRSd 81 QRS -27 QT 333 T 78 QTc 403 Conclusion SINUS TACHYCARDIA WITH OCCASIONAL ECTOPIC PREMATURE COMPLEXES BORDERLINE LEFT AXIS DEVIATION [QRS AXIS < -20] NONSPECIFIC T-WAVE ABNORMALITY ABNORMAL RHYTHM ECG UNCONFIRMED REPORT Electronically signed by : Benny Goldman MD 10/07/2022 15:57:20
--- NOTE | 2022-10-05 16:22 | XR_ITS ---
PROCEDURE INFORMATION: Exam: XR Chest Exam date and time: 10/05/2022 4:52 PM Age: 62 years old Clinical indication: Shortness of breath; Additional info: SOA TECHNIQUE: Imaging protocol: Radiologic exam of the chest. Views: 1 view. COMPARISON: CR XR CHEST 2V 08/03/2020 8:50 AM FINDINGS: Tubes, catheters and devices: Loop recorder overlies the left heart. Lungs: Mild left basilar atelectasis. Lungs are otherwise clear. Pleural spaces: Unremarkable. No pleural effusion. No pneumothorax. Heart/Mediastinum: Unremarkable. No cardiomegaly. Bones/joints: Unremarkable. IMPRESSION: Left basilar atelectasis. No other acute findings.
[2022-10-05 16:30] VITALS: BP 111/73; PULSE 117; O2SAT 100
[2022-10-05 16:36] LABS: Basophils % 0.3 % (0.1-2.0); Eosinophils # 0.1 K/mm3 (0.0-0.4); Eosinophils % 1.2 % (0.1-12.0); Hematocrit 38.6 % (37.0-47.0); Hemoglobin 12.5 g/dL (12.2-16.2); Lymphocytes # 1.7 K/mm3 (0.7-4.5); Lymphocytes % 34.1 % (10-50); Mean Corpuscular HGB Conc 32.3 g/dL (31.8-35.4); Mean Corpuscular Hemoglobin 26.8 pg (27.0-31.2); Mean Platelet Volume 8.6 fl (7.4-10.4); Monocytes # 0.5 K/mm3 (0.1-1.0); Monocytes % 9.5 % (1.7-9.3); Neutrophils # 2.7 K/mm3 (1.8-7.8); Neutrophils % 54.8 % (37.0-80.0); Platelet Count 274 K/mm3 (142-424); Red Blood Count 4.65 M/mm3 (4.20-5.40); Red Cell Distribution Width 15.5 % (11.5-17.5); White Blood Count 4.9 K/mm3 (4.8-10.8)
[2022-10-05 16:45] LABS: Chloride 103 mmol/L (98-107)
[2022-10-05 16:46] LABS: Sodium 143 mmol/L (136-145)
[2022-10-05 16:48] LABS: Alanine Aminotransferase 45 U/L (12-78); Alkaline Phosphatase 77 U/L (38-126); Anion Gap 20.9 mEq/L (5-15); Aspartate Amino Transferase 55 U/L (14-36); Bilirubin,Total 0.4 mg/dl (0.2-1.3); Blood Urea Nitrogen 13 mg/dl (7-17); Carbon Dioxide 22 mmol/L (22.0-30.0); Estimated Glomerular Filt Rate 85 ml/min (>60); GFR (African American) 102 ML/MIN (>60)
[2022-10-05 16:49] LABS: Albumin Level 3.6 g/dl (3.5-5.0); Albumin/Globulin Ratio 1.4 (1.1-1.8); Calcium 9.1 mg/dl (8.4-10.2); Globulin 2.6 g/dL (1.3-3.2); Glucose 115 mg/dl (74-100); Magnesium 1.3 mg/dl (1.6-2.3); Total Protein,Serum 6.2 g/dl (6.3-8.2)
[2022-10-05 16:50] LABS: Potassium 2.9 mmoL/L (3.5-5.1)
--- NOTE | 2022-10-05 16:51 | HMH.EDGENADL ---
Discharge Plan Disposition Patient Disposition: Home, Self-Care Prescriptions Prescriptions: New potassium chloride 10 mEq capsule, extended release 10 meq PO DAILY Qty: 14 0RF magnesium oxide 400 mg magnesium capsule 400 mg PO DAILY Qty: 14 0RF No Action nadolol 40 mg tablet 40 mg PO DAILY Qty: 30 3RF aspirin 81 mg tablet,delayed release (DR/EC) 81 mg PO DAILY Qty: 90 3RF Hold Instructions: Resume on 08/14/20. hold until finishing 21 days of xerolto omeprazole 40 mg capsule,delayed release(DR/EC) 40 mg PO DAILY estradiol 1 mg tablet See Rx Instructions .Route .COMPLEX Qty: 90 0RF Rx Instructions: TAKE ONE TABLET BY MOUTH EVERY DAY FOR hormone replacement topiramate 25 mg tablet 25 mg PO BID Qty: 180 0RF montelukast 10 mg tablet 10 mg PO HS Qty: 90 3RF trazodone 50 mg tablet 50 mg PO QHS Qty: 90 0RF hydrocodone-acetaminophen 5-325 mg tablet 1 tab PO BID PRN (Reason: pain) Qty: 60 0RF fluticasone propionate 50 mcg/actuation spray,suspension 1 spray NS DAILY Qty: 16 0RF Rx Instructions: administer into each nostril duloxetine 60 mg capsule,delayed release(DR/EC) 60 mg PO DAILY Qty: 90 0RF levothyroxine 75 mcg tablet See Rx Instructions .ROUTE .COMPLEX Qty: 30 2RF Dose Instruction: TAKE ONE TABLET BY MOUTH EVERY DAY Rx Instructions: TAKE ONE TABLET BY MOUTH EVERY DAY liothyronine 25 mcg tablet See Rx Instructions .ROUTE .COMPLEX Qty: 30 2RF Dose Instruction: TAKE ONE TABLET BY MOUTH EVERY DAY Rx Instructions: TAKE ONE TABLET BY MOUTH EVERY DAY rosuvastatin 10 mg tablet See Rx Instructions .ROUTE .COMPLEX Qty: 90 0RF Dose Instruction: TAKE ONE TABLET BY MOUTH EVERY DAY AT BEDTIME FOR cholesterol Rx Instructions: TAKE ONE TABLET BY MOUTH EVERY DAY AT BEDTIME FOR cholesterol lorazepam 0.5 mg tablet 0.5 mg PO BID PRN (Reason: Anxiety) Qty: 60 0RF budesonide-formoterol 10.2 GM HFA aerosol inhaler 2 puffs IH BID PRN (Reason: copd) linaclotide 72 MCG capsule 72 mcg PO DAILY Referrals Follow up/Referrals: Lulu Noyola PA [Primary Care Provider] - See instructions Activity Restrictions/Add. Instructions Additional Instructions/Restrictions: Return for chest pain shortness of air difficulty breathing or any other concerns within the next 8 hours follow-up with primary care physician and cardiology as recommended Clinical Impressions Clinical Impression: Shortness of breath Discharge ED Provider: Eber Kahn General Adult HPI General Chief complaint: PAIN Stated complaint: anxiety Time Seen by Provider: 10/05/22 16:10 History of Present Illness HPI narrative: 62-year-old female presents with palpitations and shortness of air. She follows with Dr. Chilel for coronary disease. She has no fever or cough. She says it is associated with anxiety and she has chest tightness when it comes on. She has no coughing up blood or prior pulmonary embolism. She has been diagnosed with tachycardia before and is on nadolol per cardiology. Related Data Home Medications Medication Instructions Recorded Confirmed budesonide-formoterol HFA 160 2 puffs inhalation BID PRN copd 01/27/21 10/05/22 mcg-4.5 mcg/actuation aerosol inhaler linaclotide 72 mcg capsule 72 mcg PO DAILY irritable bowel 01/27/21 10/05/22 syndrome omeprazole 40 mg capsule,delayed 40 mg PO DAILY STOMACH 05/25/22 10/05/22 release Previous Rx's Medication Instructions Recorded aspirin 81 mg tablet,delayed 81 mg PO DAILY heart health #90 09/26/21 release tabs fluticasone propionate 50 1 spray intranasal DAILY ALLERGIES 11/28/21 mcg/actuation nasal #16 grams spray,suspension duloxetine 60 mg capsule,delayed 60 mg PO DAILY Depression #90 caps 07/27/22 release levothyroxine 75 mcg tablet See Rx Instructions .Route 08/21/22 .COMPLEX #30 tabs liothyronine 25 mcg tablet Se
[2022-10-05 16:57] LABS: NT Pro Brain Natriuretic Pep. 1220 pg/mL (0-125)
[2022-10-05 17:00] VITALS: BP 126/74; PULSE 105; O2SAT 99
[2022-10-05 17:05] LABS: Troponin I < 0.01 ng/ml (0.00-0.034)
[2022-10-05 17:07] LABS: D-Dimer 1.11 ug/mL (0.0-0.5)
--- NOTE | 2022-10-05 17:15 | PC.NURSE ---
Monroe houser MD for ice chips.
[2022-10-05 17:19] LABS: Thyroid Stimulating Hormone < 0.02 uIU/mL (0.465-4.68)
[2022-10-05 17:30] VITALS: BP 114/82; PULSE 107; O2SAT 98
--- NOTE | 2022-10-05 17:32 | CT_ITS ---
PROCEDURE INFORMATION: Exam: CTA Chest With Contrast Exam date and time: 10/05/2022 5:56 PM Age: 62 years old Clinical indication: Pain; Angina pectoris; Additional info: Pte TECHNIQUE: Imaging protocol: Computed tomographic angiography of the chest with contrast. 3D rendering (Not supervised by radiologist): MIP and/or 3D reconstructed images were created by the technologist. Radiation optimization: All CT scans at this facility use at least one of these dose optimization techniques: automated exposure control; mA and/or kV adjustment per patient size (includes targeted exams where dose is matched to clinical indication); or iterative reconstruction. Contrast material: ISOVUE 370; Contrast volume: 70 ml; Contrast route: INTRAVENOUS (IV); REPORTING DATA: Count of CT and Cardiac NM exams in prior 12 months: This patient has received 0 known CTs and 0 known cardiac nuclear medicine studies in the 12 months prior to the current study. COMPARISON: CT ANGIO CHEST 08/01/2020 3:32 AM and chest x-ray 10/05/[address] 02/03/2018 FINDINGS: Pulmonary arteries: Normal. No pulmonary emboli. Aorta: Unremarkable. No aortic aneurysm. No aortic dissection. Lungs: Bilateral lung nodules largest on the right measuring 7 mm in the posterior right lower lobe on image 50 in the largest on the left measuring 6 mm in the posterolateral left lower lobe on image 57 which are stable. A 4 mm subpleural nodule in the posterolateral left lower lobe on image 64 not clearly seen on the 2 prior [address]s. Lung ness otherwise clear. Pleural spaces: Unremarkable. No pneumothorax. No pleural effusion. Heart: Unremarkable. No cardiomegaly. No pericardial effusion. Lymph nodes: Unremarkable. No enlarged lymph nodes. Liver: Multifocal hepatic enhancing lesions redemonstrated and similar to previous compatible with hemangiomas or other benign process. Bones/joints: Mild pectus excavatum deformity with a Elias index of 2.37. Soft tissues: Unremarkable. IMPRESSION: 1. No evidence of PE. No other acute findings. 2. Interval development of a 4 mm left lower lobe nodule. I would advise six-month follow-up CT to ensure stability. Remaining nodules are stable. 3. Incidental pectus excavatum deformity with a Elias index of 2.37. (mild excavatum: 2.0-3.2).
[2022-10-05 18:31] VITALS: BP 115/84; PULSE 121; RESP 24; O2SAT 98
[2022-10-05 19:27] VITALS: BMI 27.9
[2022-10-05 19:28] VITALS: BP 115/84; PULSE 89; RESP 18; TEMP 36.7; O2SAT 98
[2022-10-05 21:01] LABS: T4 (Thyroxine) 13.2 ug/dl (5.53-11.0)
[2022-10-05 21:02] LABS: Free T4 (Free Thyroxine) 1.97 ng/dl (0.78-2.19)
== END 2022-10-05 19:32 | disposition home or self-care (01) ==
PROVIDERS: Emergency Provider Emergency Medicine; PCP Physician Assistant
DX: R06.02 Shortness of breath (principal); R00.2 Palpitations
CPT/HCPCS: 36415; 71045; 71275; 80048; 80053; 80061; 80076; 82652; 83735; 83880; 84436; 84439; 84443; 84484; 85025; 85378; 93005; 96361; 96365; 99285; J3475; Q9967

== ENCOUNTER 2022-10-11 15:37 | Emergency (ER) | payer MEDICARE, MEDICAID, SELFPAY ==
[2022-10-11] VITALS (7 sets, daily range): BP systolic 110–129; BP diastolic 74–98; PULSE 84–94; RESP 16–23; TEMP 36.4–36.7; O2SAT 96–100; BMI 27.9
--- NOTE | 2022-10-11 15:36 | ECG_ITS ---
APPROVED REPORT Exam: Resting ECG HR:80 bpm ECG Measurements Heart Rate 80 AXES PA 156 P 18 QRSd 86 QRS -27 QT 376 T 68 QTc 413 Conclusion SINUS RHYTHM BORDERLINE LEFT AXIS DEVIATION [QRS AXIS < -20] NONSPECIFIC T-WAVE ABNORMALITY BORDERLINE ECG UNCONFIRMED REPORT Electronically signed by : Benny Goldman MD 10/11/2022 21:15:03
--- NOTE | 2022-10-11 15:51 | XR_ITS ---
FINAL REPORT CLINICAL HISTORY: Shortness of breath COMPARISON: 10/05/2022 FINDINGS: No acute pulmonary opacity is present. There is no evidence of effusion or pneumothorax. Mediastinum is unremarkable. Heart size is normal. IMPRESSION: No acute abnormality. Reviewed, Interpreted and Dictated by Mansoor Townsend MD Transcribed by Lulu Galeas Authenticated and . [facility]
--- NOTE | 2022-10-11 15:54 | PC.NURSE ---
RT notified of Neb order
--- NOTE | 2022-10-11 16:10 | PC.NURSE ---
pt ambulatory to restroom without complications
--- NOTE | 2022-10-11 16:24 | HMH.EDGENADL ---
Discharge Plan Disposition Patient Disposition: Home, Self-Care Prescriptions Prescriptions: New levofloxacin 750 mg tablet 750 mg PO DAILY 5 Days Qty: 5 0RF ondansetron 4 mg tablet,disintegrating 4 mg PO Q8H PRN (Reason: Nausea) Qty: 15 0RF No Action nadolol 40 mg tablet 40 mg PO DAILY Qty: 30 3RF aspirin 81 mg tablet,delayed release (DR/EC) 81 mg PO DAILY Qty: 90 3RF Hold Instructions: Resume on 08/14/20. hold until finishing 21 days of xerolto omeprazole 40 mg capsule,delayed release(DR/EC) 40 mg PO DAILY estradiol 1 mg tablet See Rx Instructions .Route .COMPLEX Qty: 90 0RF Rx Instructions: TAKE ONE TABLET BY MOUTH EVERY DAY FOR hormone replacement topiramate 25 mg tablet 25 mg PO BID Qty: 180 0RF montelukast 10 mg tablet 10 mg PO HS Qty: 90 3RF trazodone 50 mg tablet 50 mg PO QHS Qty: 90 0RF hydrocodone-acetaminophen 5-325 mg tablet 1 tab PO BID PRN (Reason: pain) Qty: 60 0RF fluticasone propionate 50 mcg/actuation spray,suspension 1 spray NS DAILY Qty: 16 0RF Rx Instructions: administer into each nostril duloxetine 60 mg capsule,delayed release(DR/EC) 60 mg PO DAILY Qty: 90 0RF levothyroxine 75 mcg tablet See Rx Instructions .ROUTE .COMPLEX Qty: 30 2RF Dose Instruction: TAKE ONE TABLET BY MOUTH EVERY DAY Rx Instructions: TAKE ONE TABLET BY MOUTH EVERY DAY liothyronine 25 mcg tablet See Rx Instructions .ROUTE .COMPLEX Qty: 30 2RF Dose Instruction: TAKE ONE TABLET BY MOUTH EVERY DAY Rx Instructions: TAKE ONE TABLET BY MOUTH EVERY DAY rosuvastatin 10 mg tablet See Rx Instructions .ROUTE .COMPLEX Qty: 90 0RF Dose Instruction: TAKE ONE TABLET BY MOUTH EVERY DAY AT BEDTIME FOR cholesterol Rx Instructions: TAKE ONE TABLET BY MOUTH EVERY DAY AT BEDTIME FOR cholesterol lorazepam 0.5 mg tablet 0.5 mg PO BID PRN (Reason: Anxiety) Qty: 60 0RF budesonide-formoterol 10.2 GM HFA aerosol inhaler 2 puffs IH BID PRN (Reason: copd) linaclotide 72 MCG capsule 72 mcg PO DAILY potassium chloride 10 mEq capsule, extended release 10 meq PO DAILY Qty: 14 0RF magnesium oxide 400 mg magnesium capsule 400 mg PO DAILY Qty: 14 0RF Referrals Follow up/Referrals: Emery Kellogg MD [Primary Care Provider] - See instructions Activity Restrictions/Add. Instructions Additional Instructions/Restrictions: Follow-up with your primary care physician within the next few days. Return to emergency department for worsening difficulty breathing cough or any other concerns within the next 8 hours Clinical Impressions Clinical Impression: Acute bronchitis Discharge ED Provider: Eber Kahn General Adult HPI General Chief complaint: Shortness of Breath/Dyspnea Stated complaint: SOA Time Seen by Provider: 10/11/22 15:40 History of Present Illness HPI narrative: 62-year-old female with history of tachycardia migraine hypertension coronary disease GERD anxiety presents with cough and shortness of breath. She was evaluated last week by myself and at that time had more chest pain as a presenting symptom. Today pain is improved however she is having shortness of breath with walking and a worsening productive cough. No fever or chills. She was evaluated at primary care physician Dr. Kellogg this morning and he sent her up to the emergency department for evaluation Related Data Home Medications Medication Instructions Recorded Confirmed budesonide-formoterol HFA 160 2 puffs inhalation BID PRN copd 01/27/21 10/11/22 mcg-4.5 mcg/actuation aerosol inhaler linaclotide 72 mcg capsule 72 mcg PO DAILY irritable bowel 01/27/21 10/11/22 syndrome omeprazole 40 mg capsule,delayed 40 mg PO DAILY STOMACH 05/25/22 10/11/22 release Previous Rx's Medication Instructions Recorded aspirin 81 mg tablet,delayed 81 mg PO DAILY heart health #90 09/26/21 release tabs flut
[2022-10-11 16:30] LABS: Microscopic, Urine URINE MICROSCOPIC (MICROSCOPIC)
[2022-10-11 16:39] LABS: Appearance,Urine CLEAR (Clear); Blood, Urine Negative (Negative); Color,Urine DK YELLOW (Yellow); Glucose,Urine (UA) Negative (Negative); Ketones,Urine 1+ (Negative); Leukocyte Esterase,Urine TRACE (Negative); Nitrate,Urine Negative (Negative); PH,Urine 8.5 (5.0-8.5); Protein,Urine TRACE (Negative); Specific Gravity, Urine 1.015 (1.005-1.030)
[2022-10-11 16:45] LABS: Basophils % 0.2 % (0.1-2.0); Eosinophils % 0.5 % (0.1-12.0); Hematocrit 42.6 % (37.0-47.0); Hemoglobin 14.2 g/dL (12.2-16.2); Lymphocytes # 1.6 K/mm3 (0.7-4.5); Lymphocytes % 31.2 % (10-50); Mean Corpuscular HGB Conc 33.5 g/dL (31.8-35.4); Mean Corpuscular Hemoglobin 27.4 pg (27.0-31.2); Mean Corpuscular Volume 81.7 fl (81-99); Mean Platelet Volume 9.4 fl (7.4-10.4); Monocytes # 0.5 K/mm3 (0.1-1.0); Monocytes % 8.8 % (1.7-9.3); Neutrophils # 3.1 K/mm3 (1.8-7.8); Neutrophils % 59.3 % (37.0-80.0); Platelet Count 300 K/mm3 (142-424); Red Blood Count 5.21 M/mm3 (4.20-5.40); Red Cell Distribution Width 16.3 % (11.5-17.5); White Blood Count 5.2 K/mm3 (4.8-10.8)
[2022-10-11 16:47] LABS: Chloride 99 mmol/L (98-107); Potassium 3.6 mmoL/L (3.5-5.1); Sodium 137 mmol/L (136-145)
[2022-10-11 16:48] LABS: Bilirubin,Urine 2+ (Negative)
--- NOTE | 2022-10-11 16:49 | PC.NURSE ---
contacting lab to check on status of pt lab work, states they are releasing the cbc now and other results should be released soon .
[2022-10-11 16:50] LABS: Alanine Aminotransferase 34 U/L (12-78); Albumin Level 3.8 g/dl (3.5-5.0); Albumin/Globulin Ratio 1.2 (1.1-1.8); Alkaline Phosphatase 106 U/L (38-126); Anion Gap 17.6 mEq/L (5-15); Aspartate Amino Transferase 43 U/L (14-36); Bilirubin,Total 0.5 mg/dl (0.2-1.3); Blood Urea Nitrogen 17 mg/dl (7-17); Calcium 9.5 mg/dl (8.4-10.2); Carbon Dioxide 24 mmol/L (22.0-30.0); Creatinine Clearance Estimated 67 mL/min (50-200); Estimated Glomerular Filt Rate 85 ml/min (>60); GFR (African American) 102 ML/MIN (>60); Globulin 3.1 g/dL (1.3-3.2); Glucose 105 mg/dl (74-100); Total Protein,Serum 6.9 g/dl (6.3-8.2)
[2022-10-11 16:51] LABS: Magnesium 1.5 mg/dl (1.6-2.3)
--- NOTE | 2022-10-11 16:58 | CT_ITS ---
PROCEDURE INFORMATION: Exam: CT Abdomen And Pelvis With Contrast Exam date and time: 10/11/2022 5:26 PM Age: 62 years old Clinical indication: Vomiting; Abdominal pain; Generalized; Additional info: Vomiting, abdominal pain TECHNIQUE: Imaging protocol: Computed tomography of the abdomen and pelvis with contrast. Radiation optimization: All CT scans at this facility use at least one of these dose optimization techniques: automated exposure control; mA and/or kV adjustment per patient size (includes targeted exams where dose is matched to clinical indication); or iterative reconstruction. Contrast material: ISOVUE; Contrast volume: 75 ml; Contrast route: IV; REPORTING DATA: Count of CT and Cardiac NM exams in prior 12 months: This patient has received [address] and 0 known cardiac nuclear medicine studies in the 12 months prior to the current study. COMPARISON: CT ABDOMEN PELVIS W CON 01/26/2021 3:16 PM FINDINGS: Tubes, catheters and devices: there is an epidural catheter terminating in the lower thoracic spine. Lungs: There is a 2 mm nodule in the left lower lobe. (Series 5, image 10) Liver: Unchanged 1 cm enhancing lesion in the right hepatic lobe, favored to represent hemangiomas. Additional subcentimeter lesions are not characterized in current exam. Gallbladder and bile ducts: There has been a cholecystectomy. No biliary ductal dilation. Pancreas: No peripancreatic fluid stranding. No main pancreatic ductal dilation. Spleen: No splenomegaly. Adrenal glands: The adrenal glands are normal. Kidneys and ureters: Nephrograms are symmetric. No nephrolithiasis or hydroureteronephrosis on either side. No solid lesions Stomach and bowel: No bowel wall thickening or distention. Scattered colonic diverticula without acute inflammatory change. Appendix: A normal appendix is identified. Intraperitoneal space: There is no evidence of free intraperitoneal or pelvic fluid. Vasculature: The aorta demonstrates mild atherosclerotic calcification. Lymph nodes: Unremarkable. No enlarged lymph nodes. Urinary bladder: Unremarkable as visualized. Reproductive: Status post hysterectomy. Bones/joints: No acute osseous abnormality. Soft tissues: There is minimal focus of subcutaneous stranding and air consistent with recent injection. IMPRESSION: 1. No acute abnormality in the abdomen or pelvis 2. 2 mm left lower lobe nodule. For patients at low risk (minimal or absent history of smoking and of other known risk factors), no routine follow-up is indicated. For patients at high risk (history of smoking or of other known risk factors), consider optional CT Chest at 12 months. (Reference: Jamila) REFERENCES: Jamila Ramos, et al. Guidelines for Management of Incidental Pulmonary Nodules Detected on CT Images: From the Fleischner Society 2017. Radiology. 2017;284(1):228-243.
[2022-10-11 17:00] LABS: NT Pro Brain Natriuretic Pep. 134 pg/mL (0-125)
[2022-10-11 17:03] LABS: Bacteria,Urine 1+ /lpf; RBC,Urine Occasional #/hpf (0-3)
[2022-10-11 17:19] LABS: Troponin I < 0.01 ng/ml (0.00-0.034)
[2022-10-11 17:21] LABS: Thyroid Stimulating Hormone < 0.02 uIU/mL (0.465-4.68)
[2022-10-11 17:56] LABS: Coronavirus 19, PCR Not Detected (NotDetected); Influenza A, PCR Not Detected (NotDetected); Influenza B, PCR Not Detected (NotDetected)
[2022-10-11 18:01] LABS: VBG Base Excess -2.5 mmol/L (-2.4-2.3); VBG HCO3 21.2 mmol/L (23-30); VBG Oxygen Saturation 59.9 % (50-70); VBG PH 7.47 mmol/L (7.31-7.41); VBG PO2 29.8 mmol/L (28-40); VBG Total CO2 22.2 mmol/L (23-27)
[2022-10-11 20:10] LABS: Troponin I < 0.01 ng/ml (0.00-0.034)
== END 2022-10-11 19:36 | disposition home or self-care (01) ==
PROVIDERS: Emergency Provider Emergency Medicine; PCP Emergency Medicine
DX: J20.9 Acute bronchitis, unspecified (principal); R06.02 Shortness of breath
CPT/HCPCS: 36415; 71045; 74177; 80053; 81001; 82803; 83735; 83880; 84443; 84484; 85025; 93005; 96374; 96375; 99285; C9803; J2405; Q9967; U0003; U0005

== ENCOUNTER → 2022-10-16 10:40 | Outpatient (CLI) | payer MEDICARE, MEDICAID, SELFPAY ==
--- NOTE | 2022-10-16 10:40 | US_ITS ---
FINAL REPORT CLINICAL HISTORY: hyperthyroidism FINDINGS: THYROID ULTRASOUNDIs The right lobe of the thyroid is surgically absent. The left lobe of the thyroid measures 3.3 x 1.0 x 1.0 cm. In the left lobe of the thyroid is a 2 x 2 x 1 mm TI-RADS 4 nodule. A calcification is identified in the left lobe of the thyroid. There is a questionable hyperechoic 5 x 3 x 3 mm nodule in or adjacent to the left lobe of the thyroid. IMPRESSION: Surgically absent right thyroid. Small left thyroid nodules. No follow-up required. Reviewed, Interpreted and Dictated by Mc Montemayor III, MD Transcribed by Bahman Parker Authenticated and [facility]
== END ==
LOC: RAD 10:40
PROVIDERS: PCP Internal Medicine; Visit Provider Internal Medicine
DX: E05.90 Thyrotoxicosis, unspecified without thyrotoxic crisis or storm (principal); K21.9 Gastro-esophageal reflux disease without esophagitis
CPT/HCPCS: 76536

== ENCOUNTER → 2022-10-27 10:20 | Outpatient (CLI) | payer MEDICARE, MEDICAID, SELFPAY ==
--- NOTE | 2022-10-27 10:24 | MM_ITS ---
PROCEDURE INFORMATION: Exam: MG Bilateral Screening 3D Mammography Exam date and time: 10/27/2022 10:54 AM Age: 62 years old Clinical indication: Screening examination TECHNIQUE: Imaging protocol: Bilateral Screening tomosynthesis and 2D mammography including computer-aided detection (CAD) when performed. COMPARISON: 1. MG MM DIG MAMM DX UNILAT LT CAD 10/24/2021 2:10 PM 2. MG MM CLIP PLACEMENT LT 04/25/2021 12:24 PM FINDINGS: MAMMOGRAPHY: Breast composition: The breasts are almost entirely fatty. Mass: None. Architectural distortion: None. Calcifications: No suspicious calcifications. Asymmetric density: None. Skin thickening: None. Axillary adenopathy: None. IMPRESSION: No mammographic evidence of malignancy. Annual screening is recommended unless otherwise clinically indicated. Breast composition: The breasts are almost entirely fatty. ASSESSMENT: BI-RADS Category 1: Negative
== END ==
PROVIDERS: PCP Physician Assistant; Visit Provider Physician Assistant
DX: Z12.31 Encounter for screening mammogram for malignant neoplasm of breast (principal)
CPT/HCPCS: 77063; 77067

== ENCOUNTER → 2022-11-21 06:14 | Outpatient (CLI) | payer MEDICARE, MEDICAID, SELFPAY ==
--- NOTE | 2022-11-21 | CA_ITS ---
APPROVED REPORT Exam: Pharmacologic Technologist: Gracia Hatfield, Ht: 5 ft 4 in Wt: 150 lbs BSA: 1.73 m2 HR: 62 bpm BP: 117/81 mmHg Rhythm: NSR Medical History Medical History: HTN, Hyperlipidemia Medications: Lorazepam,,,,, Omeprazole,,,,, Aspirin,,,,, Trazadone,,,,, Flonase,,,,, TopIRAMATE,,,,, SyMBICORT,,,,, Estradiol,,,,, Montelukast,,,,, Vit D3,,,,, DulOXETINE,,,,, Hydroco/Acetam,,,,, Allergies: captopril Cardiac Risk Factors: HTN, Hyperlipidemia, , FHX of CAD Stress Test Details Test: LEXISCAN HR Resting HR: 69 bpm Max Heart Rate (APMHR): 157 bpm Max HR Achieved: 117 bpm Target HR (85% APMHR): 133 bpm % of APMHR: 75 Recovery HR: 98 bpm BP Resting BP: 117/81 mmHg Max BP: 136/84 mmHg Recovery BP: 117.0/83.0 mmHg ECG Resting ECG: Normal sinus rhythm, delayed R/S transition in precordial leads, nonspecific T wave changes in anterolateral leads Stress ECG: No change Arrhythmia: None Recovery ECG: No change Recovery Arrhythmia: None Clinical Exercise duration: 04:00 min Highest Stage Achieved: Exercise capacity: n/a METs Stress ECG Conclusion DYSPNEA, CHEST TIGHTNESS AND HEADACHE NO ST CHANGES WITH STRESS UNREMARKABLE LEXISCAN STRESS TEST. MYOVIEW IMAGES ARE REPORTED SEPARATELY Test Summary REST 07:39 . . 69 . 117/ 81 . . Stage 1 . . . . . . . Myoview Injected Stage 1 01:00 . . 100 . . . . Stage 2 01:00 . . 115 . 116/ 80 . . Stage 3 01:00 . . 115 . . . . Stage 4 01:00 . . 112 . 117/ 73 . Stop exercise at 04:00 RECOVERY 01:00 . . 100 . 136/ 84 . . RECOVERY 02:00 . . 106 . 121/ 91 . . RECOVERY 02:54 . . 97 . 117/ 83 . . Electronically signed by : Makayla Love, 11/22/2022 00:41:07
--- NOTE | 2022-11-21 06:18 | NM_ITS ---
APPROVED REPORT Exam: Nuclear Stress Test Indication: HTN, HYPERLIPIDEMIA, C.P., SOB, SYNCOPE Patient Location: Outpatient Stress Tech: Gracia Hatfield OR Tech:Thuy White ELY RT (R)(N)(M) Ht: 5 ft 4 in Wt: 147 lbs Bra Size: C HR: 67 bpm BP: 117/81 mmHg BSA: 1.72 m2 Rhythm: NSR TID: 1.21 BMI: 25.2 History: HTN, HYPERLIPIDEMIA, C.P., SOB, SYNCOPE Procedure: Patient received 0.4 mg of intravenous Lexiscan, resting heart rate 67 bpm, resting blood pressure 117/81 mmHg, with Lexiscan maximum heart rate achieved was 115 bpm which is 73 % of the maximum predicted heart rate and blood pressure was 116/80 mmHg. PT C/O CHEST TIGHTNESS WITH LEXISCAN Cardiac Stress and Resting SPECT Images: Cardiac Stress and Resting SPECT images were obtained using technetium 99m Myoview 31.5 mCi stress and 10.31 mCi at rest. Resting and stress imaging in both supine and prone positions demonstrate no evidence of fixed or reversible perfusion defects. There is borderline increase in transient ischemic dilatation ratio (TID 1.21) which may be suggestive of possible multivessel disease or balanced ischemia. Gated imaging demonstrates normal global and regional LV systolic function. LVEF is calculated at 70%. Conclusion: No evidence of fixed or reversible perfusion defects. There is borderline increase in transient ischemic dilatation ratio (TID 1.21) which may be suggestive of possible multivessel disease or balanced ischemia. Gated imaging demonstrates normal global and regional LV systolic function. LVEF is calculated at 70%. Electronically signed by : Makayla Love, 11/22/2022 00:44:50
--- NOTE | 2022-11-21 06:43 | CA_ITS ---
FINAL REPORT TECHNIQUE: Real-time imaging was performed of the extracranial carotid arteries in transverse and longitudinal planes, with color duplex evaluation of blood flow velocity. Spectral analysis was performed. The cervical vertebral arteries were also examined. CLINICAL HISTORY: carina FINDINGS: NASCET technique is utilized for stenosis evaluation. Right carotid system (centimeters/second): CCA: 61.3 ICA: 76.5 ECA: 63.6 Vertebral artery: Antegrade ICA/CCA ratio: 1.25 Minimal plaque is identified at the bifurcation. Left carotid system (centimeters/second): CCA: 70 ICA: 69 ECA: 56.1 Vertebral artery: Antegrade ICA/CCA ratio: 1.22 Minimal plaque is identified at the bifurcation. IMPRESSION: Less than 50 % right ICA stenosis. Less than 50 % left ICA stenosis. Antegrade flow in the vertebral arteries. Reviewed, Interpreted and Dictated by Dwayne Hubbard MD Transcribed by Zaria Suggs Authenticated and [facility]
== END ==
PROVIDERS: PCP Physician Assistant; Visit Provider Nurse Practitioner Family
DX: R42 Dizziness and giddiness; I20.8 Other forms of angina pectoris; I65.23 Occlusion and stenosis of bilateral carotid arteries
CPT/HCPCS: 78452; 93017; 93306; 93880; A9502; J2785

== ENCOUNTER 2022-12-08 08:46 | Day surgery (SDC) | payer MEDICARE, MEDICAID, SELFPAY ==
[2022-12-08] VITALS (10 sets, daily range): BP systolic 73–125; BP diastolic 47–75; PULSE 56–71; RESP 17–20; TEMP 36.6; O2SAT 95–100; BMI 26.2
--- NOTE | 2022-12-08 07:06 | IR_ITS ---
APPROVED REPORT Patient Location: Outpatient Graphic Design Professor: ELY Diamond RT (R) PROCEDURES Left heart catheterization Left ventriculogram Selective coronary angiogram INDICATION Angina pectoris, Abnormal Myoview Informed consent was obtained prior to the procedure. COMPLICATIONS None Estimated Blood Loss: Less than 10 mls TECHNIQUE One percent lidocaine used to anesthetize the right anterior aspect of the wrist. The right radial artery was accessed via the Seldinger technique. A 6 Indonesian sheath was placed in the right radial artery. 150 mg magnesium sulfate, 800 mcg of nitroglycerin, 1mg Lidocaine and 5000 U Heparin were given through the arterial sheath. The papa catheter was also used to perform left heart catheterization, left ventriculogram and selective coronary angiogram. At the end of the procedure the sheath was removed good hemostasis was achieved using Traclet band, patient was transferred to the postop holding area in stable condition. ANGIOGRAPHIC RESULTS The left main artery Normal The left anterior descending artery Normal The circumflex artery Dominant normal The right coronary artery Vestigial normal The DURAN ventriculogram reveals Normal 65% The left ventricular end-diastolic pressure 15 mmHg IMPRESSION Normal coronary arteries Normal ejection fraction Borderline LVEDP PLAN 1. Evaluation of noncardiac symptoms Electronically signed by : Dayron Chilel MD 12/08/2022 10:55:55
[2022-12-08 09:32] LABS: Basophils % 0.5 % (0.1-2.0); Eosinophils # 0.1 K/mm3 (0.0-0.4); Eosinophils % 1.4 % (0.1-12.0); Hematocrit 46.7 % (37.0-47.0); Hemoglobin 14.2 g/dL (12.2-16.2); Lymphocytes # 1.4 K/mm3 (0.7-4.5); Mean Corpuscular HGB Conc 30.5 g/dL (31.8-35.4); Mean Corpuscular Hemoglobin 27.4 pg (27.0-31.2); Mean Corpuscular Volume 89.7 fl (81-99); Mean Platelet Volume 9.7 fl (7.4-10.4); Monocytes # 0.4 K/mm3 (0.1-1.0); Monocytes % 9.3 % (1.7-9.3); Neutrophils # 1.9 K/mm3 (1.8-7.8); Neutrophils % 50.8 % (37.0-80.0); Platelet Count 242 K/mm3 (142-424); Red Blood Count 5.21 M/mm3 (4.20-5.40); Red Cell Distribution Width 16.5 % (11.5-17.5); White Blood Count 3.8 K/mm3 (4.8-10.8)
[2022-12-08 09:39] LABS: Anion Gap 11.4 mEq/L (5-15); Blood Urea Nitrogen 6 mg/dl (7-17); Calcium 8.8 mg/dl (8.4-10.2); Carbon Dioxide 28 mmol/L (22.0-30.0); Chloride 105 mmol/L (98-107); Creatinine Clearance Estimated 63 mL/min (50-200); Estimated Glomerular Filt Rate 72 ml/min (>60); GFR (African American) 88 ML/MIN (>60); Glucose 80 mg/dl (74-100); Potassium 3.4 mmoL/L (3.5-5.1); Sodium 141 mmol/L (136-145)
[2022-12-08 09:41] LABS: INR 1.01 (0.9-1.1); Prothrombin Time 10.9 seconds (10.1-12.5)
== END 2022-12-08 13:58 | disposition home or self-care (01) ==
PROVIDERS: PCP Physician Assistant; Visit Provider Internal Medicine
DX: I25.118 Atherosclerotic heart disease of native coronary artery with other forms of angina pectoris (principal); E03.9 Hypothyroidism, unspecified; E05.90 Thyrotoxicosis, unspecified without thyrotoxic crisis or storm; E78.2 Mixed hyperlipidemia; I10 Essential (primary) hypertension; K21.9 Gastro-esophageal reflux disease without esophagitis; R06.00 Dyspnea, unspecified; R42 Dizziness and giddiness; R49.0 Dysphonia; R53.83 Other fatigue; R60.0 Localized edema; R91.8 Other nonspecific abnormal finding of lung field; R94.31 Abnormal electrocardiogram [ECG] [EKG]; R94.39 Abnormal result of other cardiovascular function study
CPT/HCPCS: 80048; 85025; 85610; 93458; 99152; C1725; C1769; J1644; Q9967

== ENCOUNTER → 2022-12-21 13:20 | Outpatient (CLI) | payer MEDICARE, MEDICAID, SELFPAY ==
[2022-12-21 14:53] LABS: Free T4 (Free Thyroxine) 0.72 ng/dl (0.78-2.19)
[2022-12-21 15:09] LABS: Thyroid Stimulating Hormone 4.18 uIU/mL (0.465-4.68)
[2022-12-23 08:18] LABS: Thyroid Peroxidase Antibodies 12 IU/mL (0-34); Triiodothyronine (T3) Free 2.5 pg/mL (2.0-4.4)
[2022-12-25 16:10] LABS: Thyroglobulin Level <1.0 IU/mL (0.0-0.9)
== END ==
PROVIDERS: PCP Physician Assistant; Visit Provider Nurse Practitioner
DX: E05.90 Thyrotoxicosis, unspecified without thyrotoxic crisis or storm (principal); F41.9 Anxiety disorder, unspecified
CPT/HCPCS: 36415; 84439; 84443; 84481; 86376; 86800

== ENCOUNTER → 2023-01-01 10:27 | Outpatient (CLI) | payer MEDICARE, MEDICAID, SELFPAY ==
--- NOTE | 2023-01-01 10:27 | CT_ITS ---
FINAL REPORT CLINICAL HISTORY: headaches COMPARISON: 07/21/2020 FINDINGS: Axial images of the head were obtained without contrast. Coronal reformatted images were also obtained. This study was performed with techniques to keep radiation doses as low as reasonably achievable (ALARA). Individualized dose reduction techniques using automated exposure control or adjustment of mA and/or kV according to the patient''s size were employed. There is generalized age appropriate atrophy. There is no evidence of intracranial hemorrhage or mass. The ventricular size is within normal limits. There is no evidence of shift of the midline structures. No skull abnormality is seen on the bone window images. IMPRESSION: No acute intracranial abnormality. Reviewed, Interpreted and Dictated by Mc Montemayor III, MD Transcribed by Barbara Obrien Authenticated and [facility]
== END ==
PROVIDERS: PCP Physician Assistant; Visit Provider Nurse Practitioner Family
DX: R51.9 Headache, unspecified (principal)
CPT/HCPCS: 70450

== ENCOUNTER 2023-01-01 11:09 | Emergency (ER) | payer MEDICARE, MEDICAID, SELFPAY ==
[2023-01-01] VITALS (7 sets, daily range): BP systolic 113–142; BP diastolic 68–87; PULSE 60–74; RESP 16–18; TEMP 36.7–36.8; O2SAT 96–99; BMI 24.7
--- NOTE | 2023-01-01 12:02 | HMH.EDGENADL ---
Discharge Plan Disposition Patient Disposition: Home, Self-Care Chief Complaint: Headache Prescriptions Prescriptions: No Action nadolol 40 mg tablet 40 mg PO DAILY Qty: 30 3RF famotidine 20 mg tablet 40 mg PO HS Qty: 60 3RF metoprolol succinate 25 mg tablet extended release 24 hr 25 mg PO DAILY Patient Comments: TAKE ONE TABLET BY MOUTH EVERY DAY levocetirizine 5 mg tablet 5 mg PO aspirin 81 mg tablet,delayed release (DR/EC) 81 mg PO DAILY Qty: 90 3RF Hold Instructions: Resume on 08/14/20. hold until finishing 21 days of xerolto montelukast 10 mg tablet 10 mg PO HS Qty: 90 3RF fluticasone propionate 50 mcg/actuation spray,suspension 1 spray NS DAILY Qty: 16 0RF Rx Instructions: administer into each nostril omeprazole 40 mg capsule,delayed release(DR/EC) See Rx Instructions .ROUTE .COMPLEX Qty: 90 3RF Dose Instruction: TAKE ONE CAPSULE BY MOUTH EVERY DAY Rx Instructions: TAKE ONE CAPSULE BY MOUTH EVERY DAY cholecalciferol (vitamin D3) 1,250 mcg (50,000 unit) tablet 1,250 mcg PO WEEKLY Qty: 12 2RF duloxetine 60 mg capsule,delayed release(DR/EC) See Rx Instructions .ROUTE .COMPLEX Qty: 90 0RF Dose Instruction: TAKE ONE CAPSULE BY MOUTH EVERY DAY FOR depression Rx Instructions: TAKE ONE CAPSULE BY MOUTH EVERY DAY FOR depression lorazepam 0.5 mg tablet 0.5 mg PO BID PRN (Reason: Anxiety) Qty: 60 0RF hydrocodone-acetaminophen 5-325 mg tablet 1 tab PO BID PRN (Reason: pain) Qty: 60 0RF cholecalciferol (vitamin D3) 50 mcg (2,000 unit) capsule See Rx Instructions .ROUTE .COMPLEX Qty: 100 3RF Dose Instruction: TAKE ONE CAPSULE BY MOUTH EVERY DAY Rx Instructions: TAKE ONE CAPSULE BY MOUTH EVERY DAY linaclotide 72 mcg capsule 72 mcg PO DAILY Qty: 30 0RF rosuvastatin 10 mg tablet See Rx Instructions .ROUTE .COMPLEX Qty: 90 0RF Dose Instruction: TAKE ONE TABLET BY MOUTH EVERY DAY AT BEDTIME FOR cholesterol Rx Instructions: TAKE ONE TABLET BY MOUTH EVERY DAY AT BEDTIME FOR cholesterol estradiol 1 mg tablet See Rx Instructions .ROUTE .COMPLEX Qty: 90 0RF Dose Instruction: TAKE ONE TABLET BY MOUTH EVERY DAY FOR hormone replacement Rx Instructions: TAKE ONE TABLET BY MOUTH EVERY DAY FOR hormone replacement topiramate 25 mg tablet See Rx Instructions .ROUTE .COMPLEX Qty: 180 0RF Dose Instruction: TAKE ONE TABLET BY MOUTH TWICE DAILY FOR headaches Rx Instructions: TAKE ONE TABLET BY MOUTH TWICE DAILY FOR headaches trazodone 50 mg tablet See Rx Instructions .ROUTE .COMPLEX Qty: 90 0RF Dose Instruction: TAKE ONE TABLET BY MOUTH EVERY DAY AT BEDTIME Rx Instructions: TAKE ONE TABLET BY MOUTH EVERY DAY AT BEDTIME budesonide-formoterol 10.2 GM HFA aerosol inhaler 2 puffs IH BID PRN (Reason: copd) ondansetron 4 mg tablet,disintegrating 4 mg PO Q8H PRN (Reason: Nausea) Qty: 15 0RF Referrals Follow up/Referrals: Lulu Noyola PA [Primary Care Provider] - See instructions Clinical Impressions Clinical Impression: Migraine PRITI (subconjunctival hemorrhage) Qualifiers: Laterality: left Qualified Code(s): H11.32 - Conjunctival hemorrhage, left eye Discharge ED Provider: Dany Branham General Adult HPI General Chief complaint: Headache Stated complaint: H/A, red left eye Time Seen by Provider: 01/01/23 11:11 Mode of Arrival: Ambulatory Source of Information: Patient Limitations: No Limitations Description of Symptoms (Recalled from ER Triage Doc. by RN): Patient reports having a headache and a red left eye. States she has been having ongoing headaches and had a ct scan 10-20 minutes ago related to her headaches. History of Present Illness HPI narrative: Is a 62-year-old female with hypertension, hyperlipidemia, COPD, hypothyroid, chronic migraines presenting with headache, left eye redness. Patient state
--- NOTE | 2023-01-01 12:07 | ECG_ITS ---
APPROVED REPORT Exam: Resting ECG HR:66 bpm ECG Measurements Heart Rate 66 AXES WY 174 P 60 QRSd 92 QRS -5 QT 421 T 72 QTc 435 Conclusion SINUS RHYTHM NONSPECIFIC T-WAVE ABNORMALITY BORDERLINE ECG UNCONFIRMED REPORT Electronically signed by : Benny Goldman MD 01/01/2023 19:48:49
--- NOTE | 2023-01-01 12:09 | PC.NURSE ---
pt needs nothing at this time,call light at bs
[2023-01-01 12:20] LABS: Basophils % 0.3 % (0.1-2.0); Eosinophils % 0.6 % (0.1-12.0); Hematocrit 42.2 % (37.0-47.0); Mean Corpuscular HGB Conc 30.7 g/dL (31.8-35.4); Mean Corpuscular Hemoglobin 28.2 pg (27.0-31.2); Mean Corpuscular Volume 92.1 fl (81-99); Mean Platelet Volume 9.4 fl (7.4-10.4); Monocytes # 0.4 K/mm3 (0.1-1.0); Monocytes % 8.6 % (1.7-9.3); Neutrophils # 2.7 K/mm3 (1.8-7.8); Neutrophils % 66.5 % (37.0-80.0); Platelet Count 215 K/mm3 (142-424); Red Blood Count 4.59 M/mm3 (4.20-5.40); Red Cell Distribution Width 15.4 % (11.5-17.5); White Blood Count 4.1 K/mm3 (4.8-10.8)
[2023-01-01 12:26] LABS: Chloride 104 mmol/L (98-107); Potassium 3.9 mmoL/L (3.5-5.1); Sodium 137 mmol/L (136-145)
[2023-01-01 12:29] LABS: Alanine Aminotransferase 19 U/L (12-78); Albumin Level 3.3 g/dl (3.5-5.0); Albumin/Globulin Ratio 1.1 (1.1-1.8); Alkaline Phosphatase 84 U/L (38-126); Anion Gap 8.9 mEq/L (5-15); Aspartate Amino Transferase 37 U/L (14-36); Bilirubin,Total 0.5 mg/dl (0.2-1.3); Blood Urea Nitrogen 10 mg/dl (7-17); Calcium 8.9 mg/dl (8.4-10.2); Carbon Dioxide 28 mmol/L (22.0-30.0); Creatinine Clearance Estimated 59 mL/min (50-200); Estimated Glomerular Filt Rate 85 ml/min (>60); GFR (African American) 102 ML/MIN (>60); Globulin 2.9 g/dL (1.3-3.2); Glucose 85 mg/dl (74-100); Total Protein,Serum 6.2 g/dl (6.3-8.2)
[2023-01-01 12:35] LABS: C-Reactive Protein 0.5 mg/L (0-4)
[2023-01-01 12:54] LABS: Erythrocyte Sedimentation Rate 18 mm/hr (0-30)
--- NOTE | 2023-01-01 13:08 | PC.NURSE ---
Checked on patient and blanket given.
--- NOTE | 2023-01-01 13:34 | PC.NURSE ---
PT AMBULATED TO THE RESTROOM,CALL LIGHT AT BS
--- NOTE | 2023-01-01 14:20 | PC.NURSE ---
ROUNDED ON PT NOTHING NEEDED AT THIS TIME,CALL LIGHT AT BS
== END 2023-01-01 14:45 | disposition home or self-care (01) ==
PROVIDERS: Emergency Provider Emergency Medicine; PCP Physician Assistant
DX: H11.32 Conjunctival hemorrhage, left eye (principal); G43.909 Migraine, unspecified, not intractable, without status migrainosus; I10 Essential (primary) hypertension; E78.5 Hyperlipidemia, unspecified; J44.9 Chronic obstructive pulmonary disease, unspecified; E03.9 Hypothyroidism, unspecified; I47.1 Supraventricular tachycardia; I20.9 Angina pectoris, unspecified; F41.9 Anxiety disorder, unspecified; F32.A Depression, unspecified
CPT/HCPCS: 70450; 80053; 85025; 85651; 86140; 93005; 96374; 96375; 99285; J0131; J1790

== ENCOUNTER → 2023-03-09 21:34 | Outpatient (CLI) | payer MEDICARE, MEDICAID, SELFPAY ==
[2023-03-09 17:09] LABS: Amphetamine/Metha Screen,Urine Negative ng/ml (<1000)
[2023-03-09 17:10] LABS: Barbiturates Screen,Urine Negative ng/ml (<200)
[2023-03-09 17:11] LABS: Benzodiazepines Screen,Urine Negative ng/ml (<200); Cannabinoid Screen,Urine Negative ng/ml (<50)
[2023-03-09 17:12] LABS: Cocaine Screen,Urine Negative ng/ml (<300); Methadone Screen,Urine Negative ng/ml (<300)
[2023-03-09 17:13] LABS: Opiate Screen,Urine Positive ng/ml (<300)
[2023-03-09 17:14] LABS: Phencyclidine Screen,Urine Negative ng/ml (<25)
== END ==
PROVIDERS: PCP Emergency Medicine; Visit Provider Emergency Medicine
DX: M47.22 Other spondylosis with radiculopathy, cervical region (principal)
CPT/HCPCS: 80305

== ENCOUNTER → 2023-03-14 08:32 | Outpatient (CLI) | payer MEDICARE, MEDICAID, SELFPAY ==
--- NOTE | 2023-03-14 09:02 | US_ITS ---
FINAL REPORT CLINICAL HISTORY: Right lower quad pain and low back kidney pain FINDINGS: Sonographic images of the abdomen were obtained. There is focal fatty infiltration of the liver. There is a hyperechoic mass in the liver, may represent a hemangioma. There is a probable 1 cm cyst. The patient is status post cholecystectomy. The common hepatic duct measures 3 mm, which is within normal limits. Limited images of the pancreas are unremarkable. The spleen size is normal. The right kidney measures cm in length. The left kidney measures cm in length. There is normal renal echogenicity. There is no evidence of hydronephrosis. The aorta has an unremarkable appearance. Limited images of the inferior vena cava are unremarkable. IMPRESSION: Hepatic cyst and fatty infiltration. Reviewed, Interpreted and Dictated by Mc Montemayor III, MD Transcribed by Rajwinder Hoyos Authenticated and [facility]
== END ==
PROVIDERS: PCP Emergency Medicine; Visit Provider Obstetrics & Gynecology
DX: R10.31 Right lower quadrant pain (principal); M54.50 Low back pain, unspecified; G89.29 Other chronic pain
CPT/HCPCS: 76700

== ENCOUNTER 2023-05-04 08:18 | Day surgery (SDC) | payer MEDICARE, MEDICAID, SELFPAY ==
[2023-05-03 10:52] VITALS: BMI 21.1
[2023-05-04 08:46] VITALS: BP 110/71; PULSE 66; RESP 18; TEMP 36.3; O2SAT 100
--- NOTE | 2023-05-04 10:17 | P.PNANES_ITS ---
[facility] Disclaimer: The information contained in this section may have been updated after the patient was seen, as this information can be updated by other users. Medical History Abnormal electrocardiogram [ECG] [EKG] Acquired equinus deformity of both feet Anemia Angina pectoris Anxiety Chronic pain disorder Constipation Daytime somnolence Depression Dizziness Dysphagia Dyspnea Dyspnea on exertion Edema of both lower extremities Erosion of vaginal mesh Family history of colon cancer Fatigue Frequent headaches GERD (gastroesophageal reflux disease) History of asthma History of COPD Hoarseness Hormone replacement therapy (HRT) Hypothyroidism Incontinence in female Liver lesion Lumbar disc disease with radiculopathy Lumbar disc disease with radiculopathy Lumbar disc disease with radiculopathy Migraine headache Multiple lung nodules on CT Numbness of tongue Osteopenia Paroxysmal SVT (supraventricular tachycardia) Postmenopausal atrophic vaginitis Primary osteoarthritis of both feet Pulmonary nodules Restless sleeper Sepsis Snoring ABRAM (stress urinary incontinence, female) Syncope Tachycardia Urinary urgency Surgical History H/O: hysterectomy History of cholecystectomy History of resection of rib History of surgery on lower extremity History of thyroidectomy Hx of appendectomy S/P cubital tunnel release Family History Other Asthma Cancer Diabetes Hyperlipidemia Hypertension Stroke Thyroid disorder Tuberculosis Social History Smoking Status: Never smoker second hand exposure: No alcohol intake: never substance use type: denies use current occupational status: retired and disabled Travel in the last 8 weeks: None household members: spouse housing: house current occupational exposures/hazards: No caffeine: Yes [facility] Anesthesia Checklist Patient Identification Patient Identification: Arm Band Structural Data Admitted From: Home Planned Operative Procedure/s: colonoscopy Consent for Planned Operative Procedure(s) Verified: Yes Verified Documents: Surgical Consent and History and Physical NPO Status Verified Time NPO: 00:00 Additional verifications Anesthesia Reactions: No Hx Blood Transfusions: No Blood Transfusion Reaction: No Airway Assessment Mallampati Score:: Class II C-Spine Mobility Assessed: Yes TMJ Mobility Assessed: Yes Dentition: Poor Dentition Neurological Assessment Level of Consciousness: Awake and Alert Anesthesia Plan Anesthesia Risk discussed: Yes Anesthesia Plan: Verified ASA Class: III Anesthesia Type: MAC
[2023-05-04 10:31] VITALS: O2SAT 96
[2023-05-04 10:53] VITALS: BP 85/57; PULSE 77; RESP 16; TEMP 36.6; O2SAT 96
--- NOTE | 2023-05-04 10:53 | P.PCN_ITS ---
Procedure: Date: 05/04/23 Patient Date of :: 1960 Procedure Performed:: Total colonoscopy to terminal ileum with biopsies Indications:: Patient is a 63-year-old female with family history of colon cancer in her father. Her last colonoscopy performed in 2019 at which time she had 3 tubular adenomas. She is scheduled for surveillance colonoscopy. Performing Provider:: Mc Gr MD Referring Provider:: . Sedation:: MAC sedation Procedure:: Patient history was obtained and appropriate physical examination was performed. Patient's medications and allergies were reviewed. Informed consent was ob tained after explaining the benefits, alternatives, and risks of the procedure including, but not limited to, bleeding, perforation, missed lesions, and adverse reaction to anesthesia medications. Patient was transported to endoscopy procedure room. Patient was connected to monitoring devices. Throughout the procedure the patient's blood pressure, pulse, and oxygen saturations were monitored continuously. Patient identification and planned procedure were verified by the staff. Patient was positioned in lateral decubitus position. Digital anorectal exam was performed. Variable stiffness Olympus colonoscope was inserted and advanced under direct visualization to the cecum. Adequacy of the colonic preparation was noted. The colonoscope was advanced a short distance into the terminal ileum. The colonoscope was then slowly withdrawn while carefully examining the color, texture, anatomy, and integrity of the mucosoa circumferentially. Within the rectum retroflexion was performed. Colonoscope was then withdrawn. . In the cecum there were multiple punctate hemorrhagic areas. Biopsy was obtained. Terminal ileum appeared normal. In the sigmoid colon there were moderate diverticuli. There was a tiny diminutive area of pigmented mucosa at the rectosigmoid which was biopsied, likely inconsequential. Retroflexion within the rectum revealed internal anal papilla/hemorrhoids. Colonoscope withdrawn. . Findings:: Irritated hemorrhagic cecum, biopsied Sigmoid diverticulosis Focal pigmentation rectosigmoid, removed with biopsy, likely inconsequential Internal anal papillae Recommendations:: Repeat colonoscopy likely 3 to 5 years given history of polyps and family history of colon cancer Complications:: None immediately apparent Estimated blood obtained (mL): 2 Colonoscopy Component Colonoscopy Component Was a colonoscopy performed during today's procedure?: No Recommended follow up colonoscopy of at least 10 years?: No If no, follow up colonoscopy recommended in ___ years?: See above Reason for not recommending >/= 10 yr follow-up interval?: See above
[2023-05-04 11:03] VITALS: BP 88/59; PULSE 87; RESP 18; O2SAT 99
[2023-05-04 11:13] VITALS: BP 101/72; PULSE 84; RESP 18; O2SAT 99
== END 2023-05-04 11:20 | disposition home or self-care (01) ==
PROVIDERS: PCP Emergency Medicine; Visit Provider Surgery
PROC: 0DJD8ZZ Inspection of Lower Intestinal Tract, Via Natural or Artificial Opening Endoscopic (ICD-10-PCS; CPT G0105; principal; 2023-05-04 09:30)
DX: Z12.11 Encounter for screening for malignant neoplasm of colon (principal); Z86.010 Personal history of colon polyps; Z80.0 Family history of malignant neoplasm of digestive organs; K57.30 Diverticulosis of large intestine without perforation or abscess without bleeding; K62.89 Other specified diseases of anus and rectum
CPT/HCPCS: G0105

== ENCOUNTER → 2023-05-07 15:05 | Outpatient (CLI) | payer MEDICARE, MEDICAID, SELFPAY ==
[2023-05-07 15:18] LABS: Free Thyroxine Index 1.8 ug/dL (5.93-13.13); T4 (Thyroxine) 7.5 ug/dl (5.53-11.0); Triiodothryronine (T3) Uptake 24 % (23.5-40.5)
[2023-05-07 17:02] LABS: Amphetamine/Metha Screen,Urine Negative ng/ml (<1000); Benzodiazepines Screen,Urine Negative ng/ml (<200)
[2023-05-07 17:03] LABS: Barbiturates Screen,Urine Negative ng/ml (<200); Cannabinoid Screen,Urine Negative ng/ml (<50)
[2023-05-07 17:04] LABS: Cocaine Screen,Urine Negative ng/ml (<300)
[2023-05-07 17:05] LABS: Methadone Screen,Urine Negative ng/ml (<300); Opiate Screen,Urine Positive ng/ml (<300)
[2023-05-07 17:06] LABS: Phencyclidine Screen,Urine Negative ng/ml (<25)
[2023-05-09 11:13] LABS: Testosterone,Total <3 ng/dL (3-67)
== END ==
PROVIDERS: PCP Family Medicine; Visit Provider Family Medicine
DX: E03.9 Hypothyroidism, unspecified; M47.22 Other spondylosis with radiculopathy, cervical region; Z79.899 Other long term (current) drug therapy
CPT/HCPCS: 80305; 84403; 84436; 84443; 84479

== ENCOUNTER 2023-06-27 13:15 | Outpatient (CLI) | payer MEDICARE, MEDICAID, SELFPAY ==
[2023-06-27 22:08] LABS: Amphetamine/Metha Screen,Urine Negative ng/ml (<1000); Barbiturates Screen,Urine Negative ng/ml (<200); Benzodiazepines Screen,Urine Negative ng/ml (<200); Cannabinoid Screen,Urine Negative ng/ml (<50); Cocaine Screen,Urine Negative ng/ml (<300); Methadone Screen,Urine Negative ng/ml (<300); Opiate Screen,Urine Positive ng/ml (<300); Phencyclidine Screen,Urine Negative ng/ml (<25)
[2023-07-03 07:37] LABS: Alprazolam Negative (Cutoff=100); Benzodiazepines Positive ng/mL (Cutoff=100); Clonazepam Negative (Cutoff=100); Codeine Negative (Cutoff=100); Flurazepam Negative (Cutoff=100); Hydrocodone Positive (.); Hydrocodone Confirm 727 ng/mL (Cutoff=100); Hydromorphone Negative (Cutoff=100); Lorazepam Positive (.); Midazolam Negative (Cutoff=100); Morphine Negative (Cutoff=100); Opiates Positive (.); Temazepam Negative (Cutoff=100); Triazolam Negative (Cutoff=100)
== END 2023-06-27 23:59 ==
LOC: LAB.DROPOF 13:15
PROVIDERS: PCP Nurse Practitioner Family; Visit Provider Nurse Practitioner Family
DX: F41.9 Anxiety disorder, unspecified (principal); Z79.899 Other long term (current) drug therapy
CPT/HCPCS: 80307; 80346; 80361; G0480

== ENCOUNTER 2023-09-19 17:00 | Outpatient (CLI) | payer MEDICARE, MEDICAID, SELFPAY ==
[2023-09-18 18:20] LABS: Basophils # 0.1 K/mm3 (0-0.2); Basophils % 1.4 % (0.1-2.0); Hematocrit 48.2 % (37.0-47.0); Hemoglobin 15.2 g/dL (12.2-16.2); Lymphocytes # 1.3 K/mm3 (0.7-4.5); Lymphocytes % 32.5 % (10-50); Mean Corpuscular HGB Conc 31.6 g/dL (31.8-35.4); Mean Corpuscular Hemoglobin 31.4 pg (27.0-31.2); Mean Corpuscular Volume 99.4 fl (81-99); Mean Platelet Volume 11.3 fl (7.4-10.4); Monocytes # 0.3 K/mm3 (0.1-1.0); Neutrophils # 2.3 K/mm3 (1.8-7.8); Platelet Count 209 K/mm3 (142-424); Red Blood Count 4.85 M/mm3 (4.20-5.40); Red Cell Distribution Width 13.7 % (11.5-17.5)
[2023-09-18 19:17] LABS: Alanine Aminotransferase 16 U/L (12-78); Albumin Level 4.1 g/dl (3.5-5.0); Albumin/Globulin Ratio 1.6 (1.1-1.8); Alkaline Phosphatase 70 U/L (38-126); Anion Gap 15.2 mEq/L (5-15); Aspartate Amino Transferase 27 U/L (14-36); Bilirubin,Total 0.7 mg/dl (0.2-1.3); Blood Urea Nitrogen 9 mg/dl (7-17); Calcium 9.9 mg/dl (8.4-10.2); Carbon Dioxide 21 mmol/L (22.0-30.0); Chloride 108 mmol/L (98-107); Chol/HDL Ratio 3.4 (1-3.5); Cholesterol 229 mg/dl (140-200); Estimated Glomerular Filt Rate 72 ml/min (>60); GFR (African American) 87 ML/MIN (>60); Globulin 2.6 g/dL (1.3-3.2); Glucose 104 mg/dl (74-100); HDL Cholesterol 68 mg/dl (40-60); Potassium 4.2 mmoL/L (3.5-5.1); Sodium 140 mmol/L (136-145); Total Protein,Serum 6.7 g/dl (6.3-8.2); Triglycerides 120 mg/dl (30-150); VLDL Cholesterol 24 mg/dL (0-40)
[2023-09-18 19:28] LABS: Direct LDL Cholesterol 103.81 mg/dL (100-129)
[2023-09-18 19:35] LABS: 25-OH Vitamin D, Total 85.1 ng/mL (30-100)
== END 2023-09-19 23:59 | disposition home or self-care (01) ==
LOC: LAB.DROPOF 17:00
PROVIDERS: PCP Nurse Practitioner Family; Visit Provider Nurse Practitioner Family
DX: E78.2 Mixed hyperlipidemia (principal); E03.9 Hypothyroidism, unspecified; E55.9 Vitamin D deficiency, unspecified; R53.83 Other fatigue; Z68.1 Body mass index [BMI] 19.9 or less, adult
CPT/HCPCS: 80053; 80061; 82306; 84443; 85025

== ENCOUNTER 2023-09-27 11:41 | Outpatient (CLI) | payer MEDICARE, MEDICAID, SELFPAY ==
--- NOTE | 2023-09-27 11:45 | XR_ITS ---
FINAL REPORT CLINICAL HISTORY: L Lower Back Nodule FINDINGS: COMPARISON: None FINDINGS: There is no acute fracture. There is mild to moderate to space narrowing of L5-S1. There is an infusion catheter within the spinal canal noted. IMPRESSION: Degenerative changes without acute process. Reviewed, Interpreted and Dictated by Dwayne Hubbard MD Transcribed by MARK Benjamin Authenticated and [facility]
== END 2023-09-27 23:59 | disposition home or self-care (01) ==
LOC: RAD 11:42
PROVIDERS: PCP Nurse Practitioner Family; Visit Provider Nurse Practitioner Family
DX: R22.2 Localized swelling, mass and lump, trunk (principal); M54.59 Other low back pain
CPT/HCPCS: 72100

== ENCOUNTER 2023-10-09 14:00 | Outpatient (POV) | payer MEDICARE, MEDICAID, SELFPAY | END 2023-10-09 23:59 | disposition home or self-care (01) | LOC: SC 14:01 | PROVIDERS: PCP Nurse Practitioner Family; Visit Provider Dermatology | DX: Z00.00 Encounter for general adult medical examination without abnormal findings (principal) ==

== ENCOUNTER 2023-10-30 09:54 | Outpatient (CLI) | payer MEDICARE, MEDICAID, SELFPAY ==
[2023-10-30 10:30] VITALS: PULSE 57; PULSE 60
[2023-10-30] MEDS: ALBUTEROL 0.083% 2.5 MG/3 ML NEB IH (10:30)
== END 2023-10-30 23:59 | disposition home or self-care (01) ==
LOC: RT 09:54
PROVIDERS: PCP Nurse Practitioner Family; Visit Provider Internal Medicine Pulmonary Disease
DX: R06.09 Other forms of dyspnea (principal)
CPT/HCPCS: 94060; 94618; 94640; 94727; 94729

== ENCOUNTER 2023-10-31 14:34 | Outpatient (POV) | payer MEDICARE, MEDICAID, SELFPAY | END 2023-10-31 23:59 | disposition home or self-care (01) | LOC: SC 14:34 | PROVIDERS: Visit Provider Specialist/Technologist | DX: Z00.00 Encounter for general adult medical examination without abnormal findings (principal) ==

== ENCOUNTER 2023-10-31 14:40 | Outpatient (CLI) | payer MEDICARE, MEDICAID, SELFPAY ==
[2023-10-31 15:25] LABS: Basophils % 0.6 % (0.1-2.0); Eosinophils % 0.9 % (0.1-12.0); Hematocrit 40.2 % (37.0-47.0); Hemoglobin 12.7 g/dL (12.2-16.2); Lymphocytes # 1.6 K/mm3 (0.7-4.5); Lymphocytes % 35.8 % (10-50); Mean Corpuscular HGB Conc 31.7 g/dL (31.8-35.4); Mean Corpuscular Hemoglobin 30.9 pg (27.0-31.2); Mean Corpuscular Volume 97.5 fl (81-99); Monocytes # 0.3 K/mm3 (0.1-1.0); Monocytes % 7.2 % (1.7-9.3); Neutrophils # 2.5 K/mm3 (1.8-7.8); Neutrophils % 55.5 % (37.0-80.0); Platelet Count 213 K/mm3 (142-424); Red Blood Count 4.12 M/mm3 (4.20-5.40); Red Cell Distribution Width 14.4 % (11.5-17.5); White Blood Count 4.4 K/mm3 (4.8-10.8)
[2023-11-06 14:22] LABS: D001-IgE D pteronyssinus <0.10 kU/L (Class 0); D002-IgE D farinae <0.10 kU/L (Class 0); E001-IgE Cat Dander <0.10 kU/L (Class 0); E005-IgE Dog Dander <0.10 kU/L (Class 0); E072-IgE Mouse Urine <0.10 kU/L (Class 0); G002-IgE Bermuda Grass <0.10 kU/L (Class 0); G006-IgE Timothy Grass <0.10 kU/L (Class 0); I006-IgE Cockroach, German <0.10 kU/L (Class 0); Immunoglobulin E, Total 13 IU/mL (6-495); M001-IgE Penicillium chrysogen <0.10 kU/L (Class 0); M002-IgE Cladosporium herbarum <0.10 kU/L (Class 0); M003-IgE Aspergillus fumigatus <0.10 kU/L (Class 0); M006-IgE Alternaria alternata <0.10 kU/L (Class 0); Strongyloides IgG Antibody Negative (Negative); T001-IgE Maple/Box Elder <0.10 kU/L (Class 0); T003-IgE Common Silver Birch <0.10 kU/L (Class 0); T006-IgE Cedar, Mountain <0.10 kU/L (Class 0); T007-IgE Oak, White <0.10 kU/L (Class 0); T008-IgE Elm, American <0.10 kU/L (Class 0); T010-IgE Walnut <0.10 kU/L (Class 0); T011-IgE Maple Leaf Sycamore <0.10 kU/L (Class 0); T014-IgE Cottonwood <0.10 kU/L (Class 0); T015-IgE Ash, White <0.10 kU/L (Class 0); T022-IgE Pecan, Hickory <0.10 kU/L (Class 0); T070-IgE White Mulberry <0.10 kU/L (Class 0); W001-IgE Ragweed, Short <0.10 kU/L (Class 0); W011-IgE Thistle, Russian <0.10 kU/L (Class 0); W014-IgE Pigweed, Common <0.10 kU/L (Class 0); W018-IgE Sheep Sorrel <0.10 kU/L (Class 0)
[2023-11-06 18:06] LABS: Aspergillus flavus Negative (Neg:<1:1); Aspergillus fumigatus Negative (Neg:<1:1); Aspergillus niger Negative (Neg:<1:1); Blastomyces Antibody Negative (Neg:<1:1); Histoplasma Antibody Quant Negative (Neg:<1:1)
== END 2023-10-31 23:59 | disposition home or self-care (01) ==
LOC: LAB 14:42
PROVIDERS: PCP Nurse Practitioner Family; Visit Provider Internal Medicine Pulmonary Disease
DX: J45.909 Unspecified asthma, uncomplicated (principal); J84.10 Pulmonary fibrosis, unspecified; D72.19 Other eosinophilia; R91.1 Solitary pulmonary nodule
CPT/HCPCS: 36415; 82785; 85025; 86003; 86606; 86612; 86682; 86698

== ENCOUNTER 2023-11-14 09:56 | Outpatient (CLI) | payer MEDICARE, MEDICAID, SELFPAY ==
--- NOTE | 2023-11-14 09:59 | MM_ITS ---
PROCEDURE INFORMATION: Exam: MG Bilateral Screening 3D Mammography Exam date and time: 11/14/2023 10:04 AM Age: 63 years old Clinical indication: Screening mammogram TECHNIQUE: Imaging protocol: Bilateral Screening tomosynthesis and 2D mammography including computer-aided detection (CAD) when performed. COMPARISON: 1. MG MM DIG SCREENING MAMM BI W/CAD 10/27/2022 10:54 AM 2. MG MM DIG MAMM DX UNILAT LT CAD 10/24/2021 2:10 PM 3. MG MM CLIP PLACEMENT LT 04/25/2021 12:24 PM 4. MG MM STEREOTACTIC LOC LT 04/25/2021 11:21 AM FINDINGS: MAMMOGRAPHY: Breast composition: There are scattered areas of fibroglandular density. Mass: None. Architectural distortion: No new or suspicious architectural distortion. Calcifications: No new or suspicious calcifications are present Asymmetric density: No new or suspicious asymmetric density is present Skin thickening: None. Axillary adenopathy: None. IMPRESSION: No mammographic evidence of malignancy. Recommend annual screening mammography unless otherwise clinically indicated. ASSESSMENT: BI-RADS category 1: Negative.
== END 2023-11-14 23:59 | disposition home or self-care (01) ==
LOC: RAD 09:57
PROVIDERS: PCP Nurse Practitioner Family; Visit Provider Nurse Practitioner Family
DX: Z12.31 Encounter for screening mammogram for malignant neoplasm of breast (principal)
CPT/HCPCS: 77063; 77067

== ENCOUNTER 2024-01-31 09:45 | Outpatient (CLI) | payer MEDICARE, MEDICAID, SELFPAY ==
--- NOTE | 2024-01-31 09:46 | CT_ITS ---
FINAL REPORT TECHNIQUE: Axial images were obtained through the chest without contrast. CLINICAL HISTORY: Lung nodules, follow-up COMPARISON: 10/05/2022 FINDINGS: There is no mediastinal or hilar adenopathy. The root of the aorta measures up to 4 cm in diameter. There are mild to moderate coronary artery calcifications. The heart size is normal. There is no pericardial or pleural effusion. A small sliding-type hiatal hernia is noted. The lungs are better inflated than on the previous exam. There are multiple tiny nodules in both lungs, generally measuring 3 mm or less in size. These appear similar to the prior exam. There is a pleural-based focus posterior laterally on the right measuring up to 5 mm. This is stable. There are calcified lesions in the posterior left hemithorax which are stable. No new suspicious pulmonary nodules are seen. Limited images of the upper abdomen demonstrate postoperative changes from cholecystectomy. IMPRESSION: Stable pulmonary nodules with the lungs better inflated than on the previous exam. Root of the aorta measures up to 4 cm in diameter. Reviewed, Interpreted and Dictated by Dwayne Hubbard MD Transcribed by Yuki Osborne Authenticated and [facility]
== END 2024-01-31 23:59 | disposition home or self-care (01) ==
LOC: RAD 09:46
PROVIDERS: PCP Nurse Practitioner Family; Visit Provider Internal Medicine Pulmonary Disease
DX: R91.8 Other nonspecific abnormal finding of lung field (principal)
CPT/HCPCS: 71250

== ENCOUNTER 2024-02-12 09:11 | Outpatient (CLI) | payer MEDICARE, MEDICAID, SELFPAY ==
[2024-02-12 19:22] LABS: Alanine Aminotransferase 15 U/L (12-78); Albumin Level 3.3 g/dl (3.5-5.0); Albumin/Globulin Ratio 1.1 (1.1-1.8); Alkaline Phosphatase 61 U/L (38-126); Anion Gap 7.3 mEq/L (5-15); Aspartate Amino Transferase 24 U/L (14-36); Bilirubin,Total 0.5 mg/dl (0.2-1.3); Blood Urea Nitrogen 14 mg/dl (7-17); Carbon Dioxide 24 mmol/L (22.0-30.0); Chloride 111 mmol/L (98-107); Estimated Glomerular Filt Rate 84 ml/min (>60); GFR (African American) 102 ML/MIN (>60); Globulin 2.9 g/dL (1.3-3.2); Glucose 83 mg/dl (74-100); Potassium 4.3 mmoL/L (3.5-5.1); Sodium 138 mmol/L (136-145); Total Protein,Serum 6.2 g/dl (6.3-8.2)
[2024-02-12 19:41] LABS: T4 (Thyroxine) 10.1 ug/dl (5.53-11.0)
[2024-02-12 19:53] LABS: Thyroid Stimulating Hormone 6.01 uIU/mL (0.465-4.68)
== END 2024-02-12 23:59 | disposition home or self-care (01) ==
LOC: LAB.DROPOF 02-14 09:12
PROVIDERS: PCP Nurse Practitioner Family; Visit Provider Nurse Practitioner Family
DX: E07.9 Disorder of thyroid, unspecified (principal); E03.9 Hypothyroidism, unspecified
CPT/HCPCS: 80053; 84436; 84443

== ENCOUNTER 2024-02-12 13:39 | Outpatient (POV) | payer MEDICARE, MEDICAID, SELFPAY | END 2024-02-12 23:59 | disposition home or self-care (01) | LOC: SC 13:40 | PROVIDERS: PCP Nurse Practitioner Family; Visit Provider Dermatology | DX: Z00.00 Encounter for general adult medical examination without abnormal findings (principal) ==

== ENCOUNTER 2024-03-21 14:33 | Outpatient (CLI) | payer MEDICARE, MEDICAID, SELFPAY ==
--- NOTE | 2024-03-21 14:33 | US_ITS ---
PROCEDURE INFORMATION: Exam: US Soft Tissue Head and Neck, Soft Tissue Exam date and time: 03/21/2024 2:45 PM Age: 64 years old Clinical indication: Other: Soft tissue low back mass; Prior surgery; Surgery date: 6+ months; Surgery type: Pain pump removed-- lead left in TECHNIQUE: Imaging protocol: Real-time ultrasound scan of the head and neck with image documentation. Exam focused on the soft tissue in the region of clinical concern. COMPARISON: No relevant prior studies available. FINDINGS: Soft tissues: Sonography of the soft tissues of the lower back/lumbar region at the site of palpable lump demonstrates complex hypoechoic fluid collection measuring 1.5 x 1.2 x 0.9 cm within the subcutaneous soft tissues with linear echogenic lines suggestive of retained lead wires. IMPRESSION: 1. Complex subcutaneous fluid collection in the lower back/lumbar region at the site of palpable lump surrounding echogenic lead wires. 2. Differential diagnosis includes hematoma versus abscess and less likely pseudomeningocele. COMMENT: Recommend limited CT following placement of a radiopaque marker at the site of the palpable abnormality.
== END 2024-03-21 23:59 | disposition home or self-care (01) ==
LOC: RAD 14:33
PROVIDERS: PCP Nurse Practitioner Family; Visit Provider Nurse Practitioner Family
DX: R22.2 Localized swelling, mass and lump, trunk (principal)
CPT/HCPCS: 76604

== ENCOUNTER 2024-03-27 07:24 | Day surgery (SDC) | payer MEDICARE, MEDICAID, SELFPAY ==
[2024-03-27 07:27] VITALS: BMI 17.3
[2024-03-27 07:28] VITALS: PULSE 60
[2024-03-27 07:45] VITALS: BP 113/70; PULSE 55; RESP 20; O2SAT 100
[2024-03-27] MEDS: CEFAZOLIN SODIUM 1 GM in 0.9 % SODIUM CHLORIDE 50 ML IV (07:59)
[2024-03-27] MEDS: LIDOCAINE 2% W/EPI 1:100,000 20ML VIAL 20 ML SUBCUT (07:59)
[2024-03-27 08:19] VITALS: BP 177/100; PULSE 54; RESP 18; TEMP 36.1; O2SAT 100
[2024-03-27 08:23] VITALS: BP 153/90; PULSE 55; RESP 20; O2SAT 97
--- NOTE | 2024-03-27 08:33 | EXP.LOOP ---
[facility] Loop Recorder Date: 03/27/24 Time: 08:33 Procedure Performed:: Removal of existing loop recorder Implantation of a new loop recorder Indication:: History of drop syncope Sinus tach/SVT Technique:: Patient was brought to the cardiac [employer]/Containment Worker. After informed consent obtained, 1% lidocaine with epinephrine was used to anesthetize the site along the left anterior aspect of the chest near the sternal border. Using a scalpel I dissected down to the previous loop recorder and using forceps and was able to remove it without issue. Using the preformed scalpel, an incision was made just above the previous incision and using the supplied preloaded apparatus, the new loop recorder was placed subcutaneously without difficulty. Following the deployment of the loop recorder interrogation of the device was performed to ensure appropriate voltage was being detected. Once this was verified, surgical glue was used to approximate the edges and closure device along with gauze were placed over the incision and the patient was prepped to discharge home. Patient tolerated the procedure well with minimal discomfort. Impression:: Successful removal of existing loop recorder. Implantation of new loop recorder. Serial Number:: [employer]-IQ EL plus Model number [id number] Serial #[id number] Plan:: Routine postop care
== END 2024-03-27 08:45 | disposition home or self-care (01) ==
PROVIDERS: PCP Nurse Practitioner Family; Visit Provider Internal Medicine
DX: Z45.09 Encounter for adjustment and management of other cardiac device (principal); R55 Syncope and collapse; Z79.899 Other long term (current) drug therapy; Z79.890 Hormone replacement therapy; I10 Essential (primary) hypertension; I25.118 Atherosclerotic heart disease of native coronary artery with other forms of angina pectoris; F17.210 Nicotine dependence, cigarettes, uncomplicated
CPT/HCPCS: 33285; C1764; J0690

== ENCOUNTER 2024-04-04 07:43 | Outpatient (CLI) | payer MEDICARE, MEDICAID, SELFPAY ==
--- NOTE | 2024-04-04 07:47 | CT_ITS ---
PROCEDURE INFORMATION: Exam: CT Lumbar Spine Without and With Contrast Exam date and time: 04/04/2024 8:27 AM Age: 64 years old Clinical indication: Mass or lump in lumbosacral region; Prior surgery; Surgery date: 6+ months; Surgery type: Pain pump; Additional info: Bodule buttock TECHNIQUE: Imaging protocol: Computed tomography of the lumbar spine without and with contrast. Radiation optimization: All CT scans at this facility use at least one of these dose optimization techniques: automated exposure control; mA and/or kV adjustment per patient size (includes targeted exams where dose is matched to clinical indication); or iterative reconstruction. Contrast material: ISOVUE; Contrast volume: 75 ml; Contrast route: IV; COMPARISON: MR LUMBAR SPINE WO CON 11/12/2020 1:00 PM FINDINGS: Bones/joints: No acute fracture. Normal alignment. No significant disc bulge or herniation. No severe spinal canal stenosis. No significant neural foraminal narrowing. Soft tissues: Unremarkable. Other findings: 10 mm x 7 mm hyperdense lesion adjacent to the catheter at the site of the palpable abnormality. IMPRESSION: 10 mm x 7 mm hyperdense lesion adjacent to the catheter at the site of the palpable abnormality. The etiology of this is indeterminate
[2024-04-04 08:11] LABS: Blood Urea Nitrogen 11 mg/dl (7-17); Estimated Glomerular Filt Rate 72 ml/min (>60); GFR (African American) 87 ML/MIN (>60)
[2024-04-04 08:43] LABS: Thyroid Stimulating Hormone 2.67 uIU/mL (0.465-4.68)
[2024-04-04] MEDS: IOPAMIDOL-370 (76%);100ML BOTTLE 75 ML IV (08:49)
[2024-04-04] MEDS: SODIUM CHLORIDE 0.9% 10ML SYR (RAD ONLY) 10 ML IV (08:49)
== END 2024-04-04 23:59 | disposition home or self-care (01) ==
PROVIDERS: PCP Nurse Practitioner Family; Visit Provider Nurse Practitioner Family
DX: R22.2 Localized swelling, mass and lump, trunk (principal); E03.9 Hypothyroidism, unspecified
CPT/HCPCS: 36415; 72133; 82565; 84443; 84520; Q9967

== ENCOUNTER 2024-05-05 12:47 | Outpatient (POV) | payer MEDICARE, MEDICAID, SELFPAY ==
[2024-05-05 13:37] VITALS: BP 129/79; PULSE 65; RESP 14; O2SAT 100; BMI 16.8
--- NOTE | 2024-05-05 14:41 | A.OFFVIS_ITS ---
[facility] Disclaimer: The information contained in this section may have been updated after the patient was seen, as this information can be updated by other users. Medical History Encounter for loop recorder at end of battery life Bilateral hearing loss Allergic rhinitis Dyspnea on exertion Multiple lung nodules on CT History of COPD History of asthma Erosion of vaginal mesh Incontinence in female Urinary urgency ABRAM (stress urinary incontinence, female) Postmenopausal atrophic vaginitis Dysphagia Frequent headaches Pulmonary nodules Hoarseness Angina pectoris Fatigue Edema of both lower extremities Numbness of tongue Dizziness Abnormal electrocardiogram [ECG] [EKG] Tachycardia Sepsis Osteopenia Anemia Chronic pain disorder Dyspnea Family history of colon cancer Lumbar disc disease with radiculopathy Primary osteoarthritis of both feet Acquired equinus deformity of both feet Lumbar disc disease with radiculopathy Migraine headache Constipation Daytime somnolence Snoring Restless sleeper Paroxysmal SVT (supraventricular tachycardia) Liver lesion 3. There are several enhancing lesions of the liver. Differential diagnosis would include enhancing metastatic foci or multifocal hepatocellular carcinoma. These lesions are not typical for hemangiomas with the enhancement being central and focal as opposed to the peripheral enhancement. Hepatic carcinoid is also included in the differential diagnosis. Suggest outpatient CT of the liver without and with contrast with three-phase post enhancement images Lumbar disc disease with radiculopathy Hormone replacement therapy (HRT) Syncope Depression Hypothyroidism GERD (gastroesophageal reflux disease) Anxiety Surgical History History of thyroidectomy History of cholecystectomy Hx of appendectomy H/O: hysterectomy S/P cubital tunnel release History of resection of rib History of surgery on lower extremity Family History Other Asthma Cancer Diabetes Hyperlipidemia Hypertension Stroke Thyroid disorder Tuberculosis Social History Smoking Status: Never smoker second hand exposure: No alcohol intake: never substance use type: denies use current occupational status: other Travel in the last 8 weeks: None household members: spouse housing: house current occupational exposures/hazards: No caffeine: Yes PM Subjective & Objective Subjective Subjective:: Patient is a pleasant 64-year-old female who presents today for worsening pain. Today she rates her pain a 10 out of 10. Patient states all of her pain is related to where her stimulator leads are still in place. Patient had previously had her stimulator generator removed by Dr. Osorio more however for what ever reason they never took the leads out. Patient states she has a knot in her buttocks area along the site of incision and that it continues to be an issue every day. Patient states it constantly causes an aching, throbbing sensation and does interfere with her ability perform activities of daily living. Patient states that she cannot sit without having significant pain. She states that she is not even sure why the leads were not removed at the same time of the explant of the stimulator. Patient denies any other changes. Patient is currently managed with Lyrica and lorazepam from her PCP. Patient also states she has had a new loop recorder placed with no issues and that she sees Dr. Chilel's office. Patient was prescribed compounded cream in the past however it made no additional improvement. Review of Systems: General: No recent weight changes, no fever, no sleep disturbances Respiratory: No cough, no shortness of air, no recurring pulmonary infections Cardiovascular/peripheral vascular: No chest pain, no palpitations, no edema, no shortness of breath Gastrointestinal: No new onset incontinence, normal bowel movements reported Genitourinary: No new onset incontinence Musculoskeletal: Low back, buttocks pain Psychiatric: [Normal mood/affect] Neurological: [Denies weakness in extremities], [denies balance issues] Pain at rest (0-10 scale): 10 Objective Objective:: Physical Exam: General: Alert and oriented x3, no acute distress, pleasant and cooperative Lungs: Respirations even and unlabored, symmetrical chest expansion Eyes: PERRL Musculoskeletal: Flexion and extension of lumbar [spine] somewhat guarded secondary to pain, [antalgic gait noted] point tenderness along lower left buttocks over anchor site of previous spinal cord stimulator leads Neurological: Speech clear, no gross sensory deficit Has patient had previous pain injection?: No Conservative treatment options previously tried: Home exercise plan Length of treatment: Longer than 12 weeks Meds Home Medications and Allergies Home Medications ?Medication ?Instructions ?Recorded ?Confirmed ?Type aspirin 81 mg tablet,delayed 81 mg PO DAILY [employer] #90 05/07/23 05/05/24 Rx release tabs nadolol 40 mg tablet 20 mg (1/2 x 40 mg) PO DAILY #30 09/20/23 05/05/24 Rx tabs cholecalciferol (vitamin D3) 1,250 See Rx Instructions .Route 11/28/23 05/05/24 Rx mcg (50,000 unit) capsule .COMPLEX #12 caps estradiol 1 mg tablet See Rx Instructions .Route 12/26/23 05/05/24 Rx .COMPLEX #90 tabs lorazepam 0.5 mg tablet 0.5 mg PO DAILY PRN anxiety #30 02/12/24 05/05/24 Rx tabs topiramate 50 mg tablet See Rx Instructions .Route 02/12/24 05/05/24 Rx .COMPLEX #60 tabs levothyroxine 50 mcg capsule 50 mcg PO DAILY #30 caps 02/13/24 05/05/24 Rx budesonide-formoterol HFA 160 1 puff inhalation BID 90 days 03/04/24 05/05/24 Rx mcg-4.5 mcg/actuation aerosol #10.2 grams inhaler (Symbicort) rosuvastatin 10 mg tablet See Rx Instructions .Route 03/19/24 05/05/24 Rx .COMPLEX #90 tabs fluticasone propionate 50 See Rx Instructions .Route 03/20/24 05/05/24 Rx mcg/actuation nasal .COMPLEX #16 grams spray,suspension linaclotide 72 mcg capsule See Rx Instructions .Route 03/31/24 05/05/24 Rx (Linzess) .COMPLEX #90 caps hydrocodone 5 mg-acetaminophen 325 1 tab PO DAILY PRN pain 30 days 04/11/24 05/05/24 Rx mg tablet #30 tabs New Prescriptions to Start Prescriptions: Allergies Allergy/AdvReac Type Severity Reaction Status Date / Time rizatriptan Allergy Severe Anaphylaxis Verified 04/17/24 10:20 captopril Allergy Mild Hives Verified 04/17/24 10:20 vibegron (From Gemtesa) Allergy Rash Verified 04/17/24 10:20 Assessment and Plan *Assessment and plan (1) Pain from implanted hardware: Status: Acute Category: Medical Code(s): T85.848A - Pain due to other internal prosthetic devices, implants and grafts, initial encounter (2) Lumbar disc disease with radiculopathy: Status: Chronic Category: Medical Code(s): M51.16 - Intervertebral disc disorders with radiculopathy, lumbar region Plan Patient is experiencing significant pain related to her implanted anchor and leads from her previous spinal cord stimulator. Patient does not have a working generator and that this device was explanted in the past however the other portion was left in place. Patient does have extreme point tenderness with palpation and very limited range of motion due to the painful hardware. I did review over with the patient risk and benefits of hardware explant and she would like to proceed forward with this plan of care. Patient has tried and failed conservative therapy including continued at home stretching exercise for longer than 12 weeks. Patient has also tried injection therapy and conservative treatment such as oral medication, heat and ice and topicals with no additional relief. Patient will be submitted for explant of implanted spinal cord stimulator leads and anchor. Patient has been instructed to contact the clinic with any concerns before the next appointment. Dr. Liz has reviewed this note and agrees with this plan of care. This note was dictated using voice recognition software and make contain errors or omissions. All injections are used with Lidocaine or Bupivacaine and Depo Medrol.
== END 2024-05-05 23:59 | disposition home or self-care (01) ==
LOC: SC.PAIN 12:48
PROVIDERS: PCP Nurse Practitioner Family; Visit Provider Nurse Practitioner Family
DX: T85.848A Pain due to other internal prosthetic devices, implants and grafts, initial encounter (principal); M51.16 Intervertebral disc disorders with radiculopathy, lumbar region; Z73.89 Other problems related to life management difficulty; Z79.899 Other long term (current) drug therapy
CPT/HCPCS: 99212; G0463

== ENCOUNTER 2024-07-09 09:46 | Outpatient (CLI) | payer MEDICARE, MEDICAID, SELFPAY | END 2024-07-09 23:59 | disposition home or self-care (01) | LOC: LAB.DROPOF 07-11 09:50 | PROVIDERS: PCP Nurse Practitioner Family; Visit Provider Nurse Practitioner Family | DX: R10.9 Unspecified abdominal pain (principal); R30.0 Dysuria | CPT/HCPCS: 87086 ==

== ENCOUNTER 2024-08-26 09:42 | Emergency (ER) | payer MEDICARE, MEDICAID, SELFPAY ==
[2024-08-26] VITALS (8 sets, daily range): BP systolic 111–126; BP diastolic 65–81; PULSE 49–68; RESP 18; TEMP 36.6–36.7; O2SAT 91–100; BMI 16.8
--- NOTE | 2024-08-26 10:14 | CT_ITS ---
FINAL REPORT TECHNIQUE: Thin section axial images are obtained through the abdomen and pelvis after intravenous contrast. Reconstruction images were obtained from the axial data. Exam was performed using dose reduction techniques. This study was performed with techniques to keep radiation doses as low as reasonably achievable (ALARA). Individualized dose reduction techniques using automated exposure control or adjustment of mA and/or kV according to the patient's size were employed. CLINICAL HISTORY: LLQ pain, severe over 2 weeks COMPARISON: 10/11/2022 FINDINGS: LUNG BASES: There is evidence of granulomatous disease in the lung bases. Heart size is normal. LIVER: There is diffuse fatty infiltration of the liver. No focal lesion. GALLBLADDER/BILIARY SYSTEM: The gallbladder has been resected. No biliary dilatation. SPLEEN: Unremarkable. PANCREAS: Unremarkable. ADRENALS: Unremarkable. KIDNEYS/URETERS/BLADDER: No hydronephrosis, renal mass, or renal stone. Unremarkable urinary bladder. GI TRACT: No small bowel obstruction or dilatation. The appendix is not visualized, however there are no secondary signs of appendicitis. Free fluid is present in the colon, with mild distention, favor mild colitis. PELVIC ORGANS: The uterus is likely resected. The bladder is incompletely distended, and there may be mild wall thickening identified. LYMPH NODES/RETROPERITONEUM/MESENTERY: No lymphadenopathy. No abdominal aortic aneurysm. ABDOMINAL WALL: The abdominal wall is intact. FREE FLUID: A small amount of pelvic ascites is noted. BONES: No acute osseous abnormality. Note is made of a spinal stimulator, although a generator for the stimulator is not visualized. IMPRESSION: Free fluid is present in the colon, which is mildly distended, favor mild colitis. The bladder is incompletely distended, and mild wall thickening may be present. Reviewed, Interpreted and Dictated by Samina Stevens MD Transcribed by Zaria Suggs Authenticated and [facility]
[2024-08-26 10:19] LABS: Basophils % 0.4 % (0.1-2.0); Hematocrit 45.9 % (37.0-47.0); Hemoglobin 15.2 g/dL (12.2-16.2); Lymphocytes # 1.3 K/mm3 (0.7-4.5); Lymphocytes % 13.4 % (10-50); Mean Corpuscular HGB Conc 33.1 g/dL (31.8-35.4); Mean Corpuscular Hemoglobin 30.7 pg (27.0-31.2); Mean Corpuscular Volume 92.7 fl (81-99); Mean Platelet Volume 11.5 fl (7.4-10.4); Monocytes # 0.8 K/mm3 (0.1-1.0); Monocytes % 7.9 % (1.7-9.3); Neutrophils # 7.8 K/mm3 (1.8-7.8); Platelet Count 236 K/mm3 (142-424); Red Blood Count 4.95 M/mm3 (4.20-5.40); Red Cell Distribution Width 12.9 % (11.5-17.5)
[2024-08-26 10:31] LABS: Lactic Acid 1.1 mmol/L (0.7-2.1)
[2024-08-26 10:32] LABS: Alanine Aminotransferase 32 U/L (12-78); Albumin/Globulin Ratio 1.4 (1.1-1.8); Alkaline Phosphatase 61 U/L (38-126); Aspartate Amino Transferase 51 U/L (14-36); Blood Urea Nitrogen 15 mg/dl (7-17); Calcium 10.1 mg/dl (8.4-10.2); Carbon Dioxide 22 mmol/L (22.0-30.0); Chloride 107 mmol/L (98-107); Creatinine Clearance Estimated 39 mL/min (50-200); Estimated Glomerular Filt Rate 63 ml/min (>60); GFR (African American) 76 ML/MIN (>60); Globulin 3.5 g/dL (1.3-3.2); Glucose 111 mg/dl (74-100); Lipase 91 U/L (23-300); Sodium 140 mmol/L (136-145); Total Protein,Serum 8.5 g/dl (6.3-8.2)
--- NOTE | 2024-08-26 10:32 | ED_ITS ---
Discharge Plan Disposition Patient Disposition: Home, Self-Care Chief Complaint: Abdominal Pain Prescriptions Prescriptions: No Action aspirin 81 mg tablet,delayed release (DR/EC) 81 mg PO DAILY Qty: 90 3RF budesonide-formoterol [Symbicort] 160-4.5 mcg/actuation HFA aerosol inhaler 1 puff inhalation BID 90 Days Qty: 10.2 2RF nadolol 40 mg tablet 20 mg PO DAILY Qty: 30 5RF cholecalciferol (vitamin D3) 1,250 mcg (50,000 unit) capsule See Rx Instructions .ROUTE .COMPLEX Qty: 12 2RF Dose Instruction: TAKE ONE CAPSULE BY MOUTH ONCE A WEEK FOR vitamin d deficiency Rx Instructions: TAKE ONE CAPSULE BY MOUTH ONCE A WEEK FOR vitamin d deficiency estradiol 1 mg tablet See Rx Instructions .ROUTE .COMPLEX Qty: 90 2RF Dose Instruction: TAKE ONE TABLET BY MOUTH EVERY DAY FOR HORMONE REPLACEMENT Rx Instructions: TAKE ONE TABLET BY MOUTH EVERY DAY FOR HORMONE REPLACEMENT Linzess 72 mcg capsule See Rx Instructions .ROUTE .COMPLEX Qty: 90 2RF Dose Instruction: TAKE ONE CAPSULE BY MOUTH EVERY DAY Rx Instructions: TAKE ONE CAPSULE BY MOUTH EVERY DAY levothyroxine 50 mcg tablet See Rx Instructions .ROUTE .COMPLEX Qty: 30 2RF Dose Instruction: TAKE ONE TABLET BY MOUTH EVERY DAY Rx Instructions: TAKE ONE TABLET BY MOUTH EVERY DAY rosuvastatin 10 mg tablet See Rx Instructions .ROUTE .COMPLEX Qty: 90 0RF Dose Instruction: TAKE ONE TABLET BY MOUTH EVERY DAY AT BEDTIME Rx Instructions: TAKE ONE TABLET BY MOUTH EVERY DAY AT BEDTIME topiramate 50 mg tablet See Rx Instructions .ROUTE .COMPLEX Qty: 60 3RF Dose Instruction: TAKE ONE TABLET BY MOUTH TWICE DAILY Rx Instructions: TAKE ONE TABLET BY MOUTH TWICE DAILY lorazepam 0.5 mg tablet 0.5 mg PO DAILY PRN (Reason: anxiety) Qty: 30 2RF fluticasone propionate 50 mcg/actuation spray,suspension See Rx Instructions .ROUTE .COMPLEX Qty: 16 2RF Dose Instruction: INSTILL 2 SPRAYS IN EACH NOSTRIL EVERY DAY Rx Instructions: INSTILL 2 SPRAYS IN EACH NOSTRIL EVERY DAY hydrocodone-acetaminophen 5-325 mg tablet 1 tab PO DAILY PRN (Reason: pain) 30 Days Qty: 30 0RF Referrals Follow up/Referrals: Devan Lundberg APRN [Primary Care Provider] - See instructions Activity Restrictions/Add. Instructions Additional Instructions/Restrictions: Call your family doctor to establish care for this visit to the emergency department and schedule follow-up within 48 hours to ensure improvement. If you have any worsening of your condition or any other concerning signs or symptoms, return to the emergency department or your primary care doctor for further evaluation. Call gastroenterology, Dr. Correia, to schedule follow-up to further delineate cause of colitis. Clinical Impressions Clinical Impression: Colitis Instructions Patient Instructions: DI for Acute Abdominal Pain Print Language Print Language: Tamazight Discharge ED Provider: Dany Branham General Adult HPI General Chief complaint: Abdominal Pain Stated complaint: Lt side pain, no accident Time Seen by Provider: 08/26/24 09:54 Mode of Arrival: Wheelchair Source of Information: Patient Description of Symptoms (Recalled from ER Triage Doc. by RN): Patient reports constipation and left lower side pain. States that it has been going on for approx 2 weeks. States she does have a history of IBS and is on Linzess. Patient reports she normally has a bowel movement everyday and has only had two bowel movements in the past two weeks. History of Present Illness HPI narrative: Please note that above description of symptoms, in this electronic medical record under categorization of recalled from ER triage doctor by RN are reflective of an initial nursing assessment, however, is not reflective of my full history and physical exam that was personally taken and clarified. Consequentially, this preceding description of symptoms, which may include the patient's categorized chief complaint in the EMR, do not reflect my personal clinical impression, and the ultimate description of history of present illness and patient stated complaints should be deferred to this section of the note. Unless stated otherwise or congruent with this section of the note, additional signs, symptoms, or incongruence should be interpreted as inaccurate with my clinical impression. Related Data Previous Rx's ?Medication ?Instructions ?Recorded aspirin 81 mg tablet,delayed 81 mg PO DAILY heart health #90 05/07/23 release tabs nadolol 40 mg tablet 20 mg (1/2 x 40 mg) PO DAILY #30 09/20/23 tabs cholecalciferol (vitamin D3) 1,250 See Rx Instructions .Route 11/28/23 mcg (50,000 unit) capsule .COMPLEX #12 caps estradiol 1 mg tablet See Rx Instructions .Route 12/26/23 .COMPLEX #90 tabs budesonide-formoterol HFA 160 1 puff inhalation BID 90 days 03/04/24 mcg-4.5 mcg/actuation aerosol #10.2 grams inhaler (Symbicort) linaclotide 72 mcg capsule See Rx Instructions .Route 03/31/24 (Linzess) .COMPLEX #90 caps levothyroxine 50 mcg tablet See Rx Instructions .Route 05/14/24 .COMPLEX #30 tabs rosuvastatin 10 mg tablet See Rx Instructions .Route 06/13/24 .COMPLEX #90 tabs topiramate 50 mg tablet See Rx Instructions .Route 07/22/24 .COMPLEX #60 tabs lorazepam 0.5 mg tablet 0.5 mg PO DAILY PRN anxiety #30 08/03/24 tabs fluticasone propionate 50 See Rx Instructions .Route 08/05/24 mcg/actuation nasal .COMPLEX #16 grams spray,suspension hydrocodone 5 mg-acetaminophen 325 1 tab PO DAILY PRN pain 30 days 08/05/24 mg tablet #30 tabs Allergies Allergy/AdvReac Type Severity Reaction Status Date / Time rizatriptan Allergy Severe Anaphylaxis Verified 08/26/24 09:35 captopril Allergy Mild Hives Verified 08/26/24 09:35 vibegron (From Gemtesa) Allergy Rash Verified 08/26/24 09:35 [facility] Disclaimer: The information contained in this section may have been updated after the patient was seen, as this information can be updated by other users. Medical History Asthma Encounter for loop recorder at end of battery life Bilateral hearing loss Allergic rhinitis Dyspnea on exertion Multiple lung nodules on CT History of COPD History of asthma Erosion of vaginal mesh Incontinence in female Urinary urgency ABRAM (stress urinary incontinence, female) Postmenopausal atrophic vaginitis Dysphagia Frequent headaches Pulmonary nodules Hoarseness Angina pectoris Fatigue Edema of both lower extremities Numbness of tongue Dizziness Abnormal electrocardiogram [ECG] [EKG] Tachycardia Sepsis Osteopenia Anemia Chronic pain disorder Dyspnea Family history of colon cancer Lumbar disc disease with radiculopathy Primary osteoarthritis of both feet Acquired equinus deformity of both feet Lumbar disc disease with radiculopathy Migraine headache Constipation Daytime somnolence Snoring Restless sleeper Paroxysmal SVT (supraventricular tachycardia) Liver lesion 3. There are several enhancing lesions of the liver. Differential diagnosis would include enhancing metastatic foci or multifocal hepatocellular carcinoma. These lesions are not typical for hemangiomas with the enhancement being central and focal as opposed to the peripheral enhancement. Hepatic carcinoid is also included in the differential diagnosis. Suggest outpatient CT of the liver without and with contrast with three-phase post enhancement images Lumbar disc disease with radiculopathy Hormone replacement therapy (HRT) Syncope Depression Hypothyroidism GERD (gastroesophageal reflux disease) Anxiety Surgical History History of thyroidectomy History of cholecystectomy Hx of appendectomy H/O: hysterectomy S/P cubital tunnel release History of resection of rib History of surgery on lower extremity Family History Other Asthma Cancer Diabetes Hyperlipidemia Hypertension Stroke Thyroid disorder Tuberculosis Social History Smoking Status: Never smoker second hand exposure: No alcohol intake: never substance use type: denies use current occupational status: other Travel in the last 8 weeks: None household members: spouse housing: house current occupational exposures/hazards: No caffeine: Yes Have you lived/traveled outside [place] in past 30 days?: No Contact w/someone who lives/traveled outside [place] past 30 days?: No Exposure to someone with infectious disease in past 14 days?: No Do you have a fever (greater than 100.4 F or 38 C)?: No Have you tested positive for COVID-19: No Exposed to someone with COVID-19 in past 14 days?: No Do you have a sore throat?: No Do you have a cough?: No Do you have any weakness?: No Do you have any diarrhea?: No Are you experiencing any unusual bleeding?: No Do you have any muscle aches/pain?: No Do you have any abdominal pain?: No Are you experiencing loss of taste or smell?: No Other Medical History Have you received the Flu Vaccine for this season: Yes Have you received the Pneumonia Vaccine: No ROS Obtained: Yes All systems reviewed & no additional complaints except as documented Physical Exam General General appearance: alert and in distress (Mild distress secondary to pain) Head Head exam: atraumatic and normocephalic Eye Eye exam: Present normal appearance, PERRL and EOMI Neck Neck exam: Present normal inspection, full ROM and trachea midline Respiratory Respiratory exam: Absent respiratory distress, wheezes, stridor, accessory muscle use or prolonged expiratory phase Cardiovascular Cardiovascular exam: Present other (Pulses equal symmetric in upper and lower extremities) Abdominal Exam Abdominal exam: Present soft and tenderness; Absent distention, guarding, rebound, rigidity or pulsatile mass Abdominal tenderness: Present moderate Extremities Exam Extremities exam: Absent edema Neurological Exam Neurological exam: Present alert, oriented X3 and CN II-XII intact; Absent motor sensory deficit Skin Skin exam: Present warm and dry; Absent diaphoresis or erythema Medical Decision Making Medical Records Medical records reviewed: Yes I reviewed the patient's medical records. Screening: Per USPSTF and CDC recommendations, given the prevalence of disease in our region, it is our hospital?s policy to screen for HIV and viral Hepatitis for all patients aged 18 and over and those with ongoing risk factors. Daniele Inquiry Pt receiving controlled substance: No Daniele was queried for this patient: No Vital Signs: 08/26/24 09:48 08/26/24 09:52 08/26/24 10:00 Temperature 98.0 F Temperature Source Oral Pulse Rate 64 Pulse Rate [Radial] 68 Respiratory Rate 18 Blood Pressure 126/81 112/74 Blood Pressure [Right Arm] 126/81 Blood Pressure Mean [Right Arm] 96 Blood Pressure Source [Right Arm] Automatic Cuff Blood Pressure Position [Right Arm] Sitting 02 Sat by Pulse Oximetry 91 L 100 99 Oxygen Delivery Method Room Air 08/26/24 10:30 08/26/24 11:00 08/26/24 11:30 Temperature Temperature Source Pulse Rate 60 62 49 L Pulse Rate [Radial] Respiratory Rate Blood Pressure 113/66 121/78 111/70 Blood Pressure [Right Arm] Blood Pressure Mean [Right Arm] Blood Pressure Source [Right Arm] Blood Pressure Position [Right Arm] 02 Sat by Pulse Oximetry 95 93 L 100 Oxygen Delivery Method Room Air Room Air 08/26/24 12:01 Temperature Temperature Source Pulse Rate 53 L Pulse Rate [Radial] Respiratory Rate Blood Pressure 111/69 Blood Pressure [Right Arm] Blood Pressure Mean [Right Arm] Blood Pressure Source [Right Arm] Blood Pressure Position [Right Arm] 02 Sat by Pulse Oximetry 99 Oxygen Delivery Method Lab Data Lab Results 08/26/24 09:55: WBC 10.0, RBC 4.95, Hgb 15.2, Hct 45.9, MCV 92.7, MCH 30.7, MCHC 33.1, RDW 12.9, Plt Count 236, MPV 11.5 H, Neut % (Auto) 78.0, Lymph % (Auto) 13.4, Gilmer % (Auto) 7.9, Eos % (Auto) 0.0 L, Baso % (Auto) 0.4, Neut # (Auto) 7.8, Lymph # (Auto) 1.3, Gilmer # (Auto) 0.8, Eos # (Auto) 0.0, Baso # (Auto) 0.0, Sodium 140, Potassium 4.0, Chloride 107, Carbon Dioxide 22, Anion Gap 15.0, BUN 15, Creatinine 0.90, Estimated Creat Clear 39, Estimated GFR 63, Est GFR ( Amer) 76, Glucose 111 H, Lactate 1.1, Calcium 10.1, Total Bilirubin 1.0, AST 51 H, ALT 32, Alkaline Phosphatase 61, Total Protein 8.5 H D, Albumin 5.0, Globulin 3.5 H, Albumin/Globulin Ratio 1.4, Lipase 91, HCV Ab JESSICA w/Rflx PCR Qn Negative, HIV Ag/Ab Combo Qual Negative 08/26/24 10:53: Urine Color Yellow, Urine Appearance Clear, Urine pH 7.5, Ur Specific Sharon 1.015, Urine Protein Negative, Urine Glucose (UA) Negative, Urine Ketones Trace, Urine Blood Negative, Urine Nitrate Negative, Urine Bilirubin Negative, Urine Urobilinogen 2.0, Ur Leukocyte Esterase Small, Urine RBC None, Urine WBC 3-5, Ur Squamous Epith Cells 10-20, Urine Bacteria Trace 08/26/24 09:55 08/26/24 09:55 Orders (Tests/Meds): ED MEDICATIONS Discontinued Medications Generic Name Dose Route Start Last Admin Trade Name Freq PRN Reason Stop Dose Admin Hydromorphone HCl 0.5 mg 08/26/24 10:14 08/26/24 10:40 Hydromorphone 2mg/Ml Syringe IV 08/26/24 10:15 0.5 mg ONCE ONE Administration Sodium Chloride 1,000 mls @ 999 mls/hr 08/26/24 10:14 08/26/24 10:39 Sod Chlor 0.9% 1000ml Bag IV 08/26/24 11:14 999 mls/hr .Q1H1M ONE Administration Iopamidol 75 ml 08/26/24 10:39 08/26/24 10:40 Iopamidol-370 (76%);100ml Bottle IV 08/26/24 10:40 75 ml ONCE ONE Administration Ketorolac Tromethamine 15 mg 08/26/24 10:14 08/26/24 10:39 Ketorolac 30mg/Ml Vial IV 08/26/24 10:15 15 mg ONCE ONE Administration Ondansetron HCl 4 mg 08/26/24 10:14 08/26/24 10:39 Ondansetron 4mg/2ml Vial IV 08/26/24 10:15 4 mg ONCE ONE Administration Sodium Chloride 10 ml 08/26/24 10:39 08/26/24 10:40 Sodium Chloride 0.9% 10ml Syr (Rad Only) IV 08/26/24 10:40 10 ml ONCE ONE Administration ORDERS Category Date Time Status CT abdomen pelvis w con Stat Cat Scan 08/26/24 10:14 Taken CBC w/Auto Diff [Complete Blood Count Auto Diff] Stat Lab 08/26/24 09:55 Completed CMP [Comprehensive Metabolic Panel] Stat Lab 08/26/24 09:55 Completed HIV Combo Stat Lab 08/26/24 09:55 Completed Hepatitis C Ab Qual. W/ RFX Stat Lab 08/26/24 09:55 Completed Lactic Acid Stat Lab 08/26/24 09:55 Completed Lipase Stat Lab 08/26/24 09:55 Completed UA [Urinalysis and Microscopic] Stat Lab 08/26/24 10:53 Completed Medical Decision Narrative: This is a 64-year-old female history of appendectomy, cholecystectomy, hysterectomy, sections, IBS presenting with constipation. Has not had a meaningful bowel movement about 2 weeks, this is abnormal for her. Had all over abdominal pain, now was primarily left lower quadrant and pelvic. Has been having small bowel movements with rabbit pellets, however has not had a meaningful bowel movement. No fevers or chills, she has been nauseated and intermittently retching. Abdominal pain is moderate in intensity at baseline, severe when it flares up and intermittently comes and goes. History was obtained via conversation with patient. On arrival, patient hemodynamically stable, alert, oriented x4, appropriate, GCS 15, moving all extremities spontaneously, pupils equal and reactive to light. Full physical exam performed and significant for 64-year-old female in mild distress secondary to pain. Left lower quadrant with moderate tenderness. No rebound, rigidity, or guarding. No flank tenderness. Normotensive, nontachycardic. Differential includes constipation, colitis, proctitis, diverticulitis, hollow viscus perforation, urinary tract infection, stones, among others. Patient placed on continuous cardiac monitoring and continuous pulse ox with initial blood pressure 126/81, heart rate 68, saturation 98% on room air. Patient was given Toradol, Zofran, Dilaudid for symptomatic management and correction of underlying abnormalities. Workup independently interpreted and significant for nonactionable CBC or chemistry, negative lipase. Urinalysis negative. On independent interpretation of imaging, inflammatory colitis, otherwise normal. Reevaluation, patient still intermittently having pains, but abdominal exam still benign. Given abdominal pain and colitis, but history of C. difficile, antibiotics were deferred at this time, especially given nonbloody diarrhea. Because patient at baseline without signs or symptoms of clinical decompensation, deemed appropriate for discharge. Results were relayed to patient who voiced understanding and were agreeable to outpatient management and follow up. I discussed my clinical impression with patient and answered all questions. At this time, the evidence for any other entities in the differential is insufficient to warrant any further testing or ED observation. This was explained as well. Advisory was given that persistent or worsening symptoms require further evaluation. I confirmed the understanding of this discussion. Given follow-up with GI Trimming Cutter disclaimer Much of this encounter note is an electronic fur cutting machine operator spoken language to printed text. Electronic fur cutting machine operator of the spoken language may permit errors. Although I have reviewed the note, some errors may still exist. Critical Care Critical Care Time Critical Care Time: No
[2024-08-26] MEDS: KETOROLAC 30MG/ML VIAL 15 MG IV (10:39)
[2024-08-26] MEDS: ONDANSETRON 4MG/2ML VIAL 4 MG IV (10:39)
[2024-08-26] MEDS: 0.9 % SODIUM CHLORIDE 1000ML 1,000 ML 999 ML IV (10:39)
[2024-08-26] MEDS: SODIUM CHLORIDE 0.9% 10ML SYR (RAD ONLY) 10 ML IV (10:40)
[2024-08-26] MEDS: HYDROMORPHONE 2MG/ML SYRINGE 0.5 MG IV (10:40)
[2024-08-26] MEDS: IOPAMIDOL-370 (76%);100ML BOTTLE 75 ML IV (10:40)
[2024-08-26 10:56] LABS: Microscopic, Urine URINE MICROSCOPIC (MICROSCOPIC)
[2024-08-26 10:59] LABS: Appearance,Urine CLEAR (Clear); Blood, Urine Negative (Negative); Color,Urine YELLOW (Yellow); Glucose,Urine (UA) Negative (Negative); Ketones,Urine TRACE (Negative); Leukocyte Esterase,Urine SMALL (Negative); Nitrate,Urine Negative (Negative); PH,Urine 7.5 (5.0-8.5); Protein,Urine Negative (Negative); Specific Gravity, Urine 1.015 (1.005-1.030)
[2024-08-26 11:06] LABS: HIV Combo NEGATIVE (Negative)
[2024-08-26 11:14] LABS: Hepatitis C Ab Qual. W/ RFX NEGATIVE (Negative)
[2024-08-26 11:26] LABS: Bilirubin,Urine Negative (Negative)
[2024-08-26 11:29] LABS: Bacteria,Urine Trace /lpf
== END 2024-08-26 12:51 | disposition home or self-care (01) ==
PROVIDERS: Emergency Provider Emergency Medicine; PCP Nurse Practitioner Family
DX: K51.90 Ulcerative colitis, unspecified, without complications (principal)
CPT/HCPCS: 74177; 80053; 81001; 83605; 83690; 85025; 86803; 87389; 96361; 96374; 96375; 99285; J1171; J1885; J2405; J7030; Q9967

== ENCOUNTER 2024-09-17 13:05 | Outpatient (CLI) | payer MEDICARE, MEDICAID, SELFPAY ==
[2024-09-17 13:24] VITALS: BMI 14.6
--- NOTE | 2024-09-17 13:35 | ECG_ITS ---
APPROVED REPORT Exam: Resting ECG HR:53 bpm ECG Measurements Heart Rate 53 AXES HI 152 P 35 QRSd 97 QRS -37 QT 445 T 77 QTc 429 Conclusion SINUS BRADYCARDIA LEFT AXIS DEVIATION [QRS AXIS < -30] PATTERN CONSISTENT WITH PULMONARY DISEASE ABNORMAL ECG UNCONFIRMED REPORT Electronically signed by : Benny Goldman MD 09/18/2024 08:42:39
== END 2024-09-17 23:59 | disposition home or self-care (01) ==
LOC: PREOP 13:06
PROVIDERS: PCP Nurse Practitioner Family; Visit Provider Anesthesiology
DX: R00.1 Bradycardia, unspecified (principal); R94.31 Abnormal electrocardiogram [ECG] [EKG]
CPT/HCPCS: 93005

== ENCOUNTER 2024-09-19 12:07 | Day surgery (SDC) | payer MEDICARE, MEDICAID, SELFPAY ==
[2024-09-18 09:08] VITALS: BMI 14.6
[2024-09-19 12:46] VITALS: BP 141/73; PULSE 57; RESP 16; TEMP 36.4; O2SAT 100
[2024-09-19] MEDS: VANCOMYCIN HCL 750 MG in 0.9 % SODIUM CHLORIDE 250 ML 125 MG IV (12:55)
[2024-09-19] MEDS: LACTATED RINGERS 1000ML 1,000 ML 25 ML IV (12:55)
--- NOTE | 2024-09-19 13:15 | EXP.ANES.CKL ---
[facility] Disclaimer: The information contained in this section may have been updated after the patient was seen, as this information can be updated by other users. Medical History Implantable loop recorder present Asthma Encounter for loop recorder at end of battery life Bilateral hearing loss Allergic rhinitis Dyspnea on exertion Multiple lung nodules on CT History of COPD History of asthma Erosion of vaginal mesh Incontinence in female Urinary urgency ABRAM (stress urinary incontinence, female) Postmenopausal atrophic vaginitis Dysphagia Frequent headaches Pulmonary nodules Hoarseness Angina pectoris Fatigue Edema of both lower extremities Numbness of tongue Dizziness Abnormal electrocardiogram [ECG] [EKG] Tachycardia Sepsis Osteopenia Anemia Chronic pain disorder Dyspnea Family history of colon cancer Lumbar disc disease with radiculopathy Primary osteoarthritis of both feet Acquired equinus deformity of both feet Lumbar disc disease with radiculopathy Migraine headache Constipation Daytime somnolence Snoring Restless sleeper Paroxysmal SVT (supraventricular tachycardia) Liver lesion Lumbar disc disease with radiculopathy Hormone replacement therapy (HRT) Syncope Depression Hypothyroidism GERD (gastroesophageal reflux disease) Anxiety Surgical History History of thyroidectomy History of cholecystectomy Hx of appendectomy H/O: hysterectomy S/P cubital tunnel release History of resection of rib History of surgery on lower extremity Family History Other Asthma Cancer Diabetes Hyperlipidemia Hypertension Stroke Thyroid disorder Tuberculosis Social History (Updated 09/17/24 @ 13:22 by Antony Pratt RN) Smoking Status: Never smoker second hand exposure: No alcohol intake: never substance use type: denies use current occupational status: disabled Travel in the last 8 weeks: None household members: spouse housing: house current occupational exposures/hazards: No caffeine: Yes [facility] Anesthesia Checklist Patient Identification Patient Identification: Arm Band Structural Data Admitted From: Home Planned Operative Procedure/s: Intrathecal Catheter Removal Consent for Planned Operative Procedure(s) Verified: Yes Verified Documents: Surgical Consent and History and Physical NPO Status Verified Time NPO: 00:00 Additional verifications Anesthesia Reactions: No Hx Blood Transfusions: No Blood Transfusion Reaction: No Airway Assessment Mallampati Score:: Class II C-Spine Mobility Assessed: Yes TMJ Mobility Assessed: Yes Dentition: Good Dentition Neurological Assessment Level of Consciousness: Awake, Alert and Appropriate Anesthesia Plan Anesthesia Risk discussed: Yes Anesthesia Plan: Verified ASA Class: III Anesthesia Type: MAC
[2024-09-19 14:43] VITALS: BP 93/60; PULSE 82; RESP 16; TEMP 36.1; O2SAT 99
[2024-09-19 14:53] VITALS: BP 103/67; PULSE 81; RESP 16; O2SAT 99
[2024-09-19 15:03] VITALS: BP 115/71; PULSE 57; RESP 16; O2SAT 100
[2024-09-19 15:13] VITALS: BP 99/68; PULSE 56; RESP 16; O2SAT 99
--- NOTE | 2024-10-10 11:08 | EXP.OP.NOTE ---
Date of procedure: 09/19/24 Pre-op Diagnosis:: Painful anchor site at intrathecal catheter Post-op Diagnosis:: Same Procedure performed:: Explant of anchor and possibly intrathecal catheter Surgeon:: Eber Liz MD REHAB/PRE VOCATIONAL COUNSELOR:: Donald Angeles Anesthesia: MAC Estimated blood loss (mL): 5 Clinical Note:: The patient is a pleasant 64-year-old white female who is previously had her intrathecal pain pump removed. We did leave the catheter however patient is having some increasing pain at her anchor site in her back. She would like her intrathecal catheter removed. I did talk to the patient about possibility of CSF leak and postdural puncture headache. We will try and remove the anchor and tie off her intrathecal catheter securing it to the fascia to prevent any CSF leak and remove the inciting source of the pain in her back which is most likely the anchor. Operative findings:: None Operative note:: Informed consent was obtained risk and benefits of the procedure were explained to the patient. The patient was taken the operating placed prone on the procedure table. She was prepped and draped in sterile fashion. The skin and subtenons tissues overlying the intrathecal anchor were anesthetized using lidocaine. We made an incision dissected out the anchor. I did tie off the remaining intrathecal catheter and secured it to the fascia. This incision was then closed with 2-0 Vicryl followed by 4-0 nylon and haim. The patient tolerated the procedure well with no complications. Patient was discharged home neurologic intact with good relief of pain symptoms. Plan and disposition: Will follow-up with this patient in 1 week to reassess her symptomology. Condition: stable Disposition: PACU Complications:: None
== END 2024-09-19 15:28 | disposition home or self-care (01) ==
PROVIDERS: PCP Nurse Practitioner Family; Visit Provider Anesthesiology
DX: T82.848A Pain due to vascular prosthetic devices, implants and grafts, initial encounter (principal); M54.50 Low back pain, unspecified; K21.9 Gastro-esophageal reflux disease without esophagitis; J44.9 Chronic obstructive pulmonary disease, unspecified; E03.9 Hypothyroidism, unspecified; Z87.891 Personal history of nicotine dependence; Z79.899 Other long term (current) drug therapy; Z79.82 Long term (current) use of aspirin; Z79.890 Hormone replacement therapy
CPT/HCPCS: 62365; 96374; J2003; J2250; J2704; J3370; J7050; J7120

== ENCOUNTER 2024-09-26 14:24 | Outpatient (POV) | payer MEDICARE, MEDICAID, SELFPAY ==
[2024-09-26 14:53] VITALS: BP 114/84; PULSE 66; RESP 14; O2SAT 97; BMI 14.9
--- NOTE | 2024-09-26 15:01 | XR_ITS ---
FINAL REPORT CLINICAL HISTORY: Right knee numbness COMPARISON: None FINDINGS: RIGHT KNEE Three views demonstrate no acute fracture or dislocation. There is an IM jose a in the proximal tibia. The knee joint space is preserved. No acute soft tissue abnormality is seen. IMPRESSION: No acute bony abnormality. Reviewed, Interpreted and Dictated by Dwayne Hubbard MD Transcribed by Liliya Siu Authenticated and . [facility]
--- NOTE | 2024-09-26 15:35 | A.OFFVIS_ITS ---
[facility] Disclaimer: The information contained in this section may have been updated after the patient was seen, as this information can be updated by other users. Medical History Implantable loop recorder present Asthma Encounter for loop recorder at end of battery life Bilateral hearing loss Allergic rhinitis Dyspnea on exertion Multiple lung nodules on CT History of COPD History of asthma Erosion of vaginal mesh Incontinence in female Urinary urgency ABRAM (stress urinary incontinence, female) Postmenopausal atrophic vaginitis Dysphagia Frequent headaches Pulmonary nodules Hoarseness Angina pectoris Fatigue Edema of both lower extremities Numbness of tongue Dizziness Abnormal electrocardiogram [ECG] [EKG] Tachycardia Sepsis Osteopenia Anemia Chronic pain disorder Dyspnea Family history of colon cancer Lumbar disc disease with radiculopathy Primary osteoarthritis of both feet Acquired equinus deformity of both feet Lumbar disc disease with radiculopathy Migraine headache Constipation Daytime somnolence Snoring Restless sleeper Paroxysmal SVT (supraventricular tachycardia) Liver lesion Lumbar disc disease with radiculopathy Hormone replacement therapy (HRT) Syncope Depression Hypothyroidism GERD (gastroesophageal reflux disease) Anxiety Surgical History History of thyroidectomy History of cholecystectomy Hx of appendectomy H/O: hysterectomy S/P cubital tunnel release History of resection of rib History of surgery on lower extremity Family History Other Asthma Cancer Diabetes Hyperlipidemia Hypertension Stroke Thyroid disorder Tuberculosis Social History Smoking Status: Never smoker second hand exposure: No alcohol intake: never substance use type: denies use current occupational status: other Travel in the last 8 weeks: None household members: spouse housing: house current occupational exposures/hazards: No caffeine: Yes PM Subjective & Objective Subjective Subjective:: Patient is a pleasant 64-year-old female who presents today for 1 week postop of anchor removal. Today she rates her pain a 6 out of 10. She states overall she is still having some low back pain but does also complain of right knee numbness and pain. Patient states this has been going on for years following a surgery she had in 2018. Patient denies any recent imaging. She does state that it is fairly constant that it stays numb and does affect her ADLs such as ambulation or activity. Patient does also make mention that recently in the last few weeks she did end up getting diagnosed with colon cancer. Patient does not yet know what stage and is scheduled for a follow-up coming up this next week. Her Daniele has been reviewed and is appropriate. Review of Systems: General: No recent weight changes, no fever, no sleep disturbances Respiratory: No cough, no shortness of air, no recurring pulmonary infections Cardiovascular/peripheral vascular: No chest pain, no palpitations, no edema, no shortness of breath Gastrointestinal: No new onset incontinence, normal bowel movements reported Genitourinary: No new onset incontinence Musculoskeletal: Right knee pain Psychiatric: [Normal mood/affect] Neurological: [Denies weakness in extremities], [denies balance issues] Pain at rest (0-10 scale): 6 Objective Objective:: Physical Exam: General: Alert and oriented x3, no acute distress, pleasant and cooperative Lungs: Respirations even and unlabored, symmetrical chest expansion Eyes: PERRL Musculoskeletal: Flexion and extension of right knee somewhat guarded secondary to pain, [antalgic gait noted] Neurological: Speech clear, no gross sensory deficit Skin: Incision site is clean, dry, well-approximated with no erythema noted and sutures intact Has patient had previous pain injection?: No Conservative treatment options previously tried: Home exercise plan Length of treatment: Longer than 12 weeks Meds Home Medications and Allergies Home Medications ?Medication ?Instructions ?Recorded ?Confirmed ?Type aspirin 81 mg tablet,delayed 81 mg PO DAILY heart health #90 05/07/23 09/26/24 Rx release tabs budesonide-formoterol HFA 160 1 puff inhalation BID 90 days 03/04/24 09/26/24 Rx mcg-4.5 mcg/actuation aerosol #10.2 grams inhaler (Symbicort) linaclotide 72 mcg capsule See Rx Instructions .Route 03/31/24 09/26/24 Rx (Linzess) .COMPLEX #90 caps levothyroxine 50 mcg tablet See Rx Instructions .Route 05/14/24 09/26/24 Rx .COMPLEX #30 tabs topiramate 50 mg tablet See Rx Instructions .Route 07/22/24 09/26/24 Rx .COMPLEX #60 tabs lorazepam 0.5 mg tablet 0.5 mg PO DAILY PRN anxiety #30 08/03/24 09/26/24 Rx tabs fluticasone propionate 50 See Rx Instructions .Route 08/05/24 09/26/24 Rx mcg/actuation nasal .COMPLEX #16 grams spray,suspension nadolol 40 mg tablet See Rx Instructions .Route 09/01/24 09/26/24 Rx .COMPLEX #30 tabs estradiol 1 mg tablet See Rx Instructions .Route 09/02/24 09/26/24 Rx .COMPLEX #90 tabs hydrocodone 5 mg-acetaminophen 325 1 tab PO DAILY PRN pain 30 days 09/09/24 09/26/24 Rx mg tablet #30 tabs rosuvastatin 10 mg tablet See Rx Instructions .Route 09/09/24 09/26/24 Rx .COMPLEX #90 tabs New Prescriptions to Start Prescriptions: Allergies Allergy/AdvReac Type Severity Reaction Status Date / Time rizatriptan Allergy Severe Anaphylaxis Verified 09/19/24 12:45 captopril Allergy Mild Hives Verified 09/19/24 12:45 vibegron (From Gemtesa) Allergy Rash Verified 09/19/24 12:45 Assessment and Plan *Assessment and plan (1) Chronic pain of right knee: Status: Acute Category: Medical Code(s): M25.561 - Pain in right knee; G89.29 - Other chronic pain Plan I did discuss with the patient to continue her postop restrictions the full 6 weeks and that we will plan on taking out her sutures at her next visit. Patient agrees with this plan of care. Due to the patient's chronic complaints of right knee pain since her surgery in 2017 I did discuss that it may be beneficial to order updated imaging. We will start with an x-ray and possibly proceed forward with MRI with out contrast in the future. Patient will be given a 1 week follow-up. She agrees with this plan of care. Patient has been instructed to contact the clinic with any concerns before the next appointment. Dr. Liz has reviewed this note and agrees with this plan of care. This note was dictated using voice recognition software and make contain errors or omissions. All injections are used with Lidocaine, Bupivacaine and dexamethasone. Occasionally urine drug screen is needed to verify patient's compliance with our office pain contract. This is ordered based off specific treatments related to chronic pain with the potential to abuse certain medications.
== END 2024-09-26 23:59 | disposition home or self-care (01) ==
PROVIDERS: PCP Nurse Practitioner Family; Visit Provider Nurse Practitioner Family
DX: M25.561 Pain in right knee (principal); G89.29 Other chronic pain; Z73.89 Other problems related to life management difficulty
CPT/HCPCS: 73562; 99212; G0463

== ENCOUNTER 2024-10-03 13:26 | Outpatient (POV) | payer MEDICARE, MEDICAID, SELFPAY ==
[2024-10-03 13:44] VITALS: BP 93/64; PULSE 72; RESP 14; O2SAT 97; BMI 15.4
--- NOTE | 2024-10-03 14:57 | A.OFFVIS_ITS ---
[facility] Disclaimer: The information contained in this section may have been updated after the patient was seen, as this information can be updated by other users. Medical History Implantable loop recorder present Asthma Encounter for loop recorder at end of battery life Bilateral hearing loss Allergic rhinitis Dyspnea on exertion Multiple lung nodules on CT History of COPD History of asthma Erosion of vaginal mesh Incontinence in female Urinary urgency ABRAM (stress urinary incontinence, female) Postmenopausal atrophic vaginitis Dysphagia Frequent headaches Pulmonary nodules Hoarseness Angina pectoris Fatigue Edema of both lower extremities Numbness of tongue Dizziness Abnormal electrocardiogram [ECG] [EKG] Tachycardia Sepsis Osteopenia Anemia Chronic pain disorder Dyspnea Family history of colon cancer Lumbar disc disease with radiculopathy Primary osteoarthritis of both feet Acquired equinus deformity of both feet Lumbar disc disease with radiculopathy Migraine headache Constipation Daytime somnolence Snoring Restless sleeper Paroxysmal SVT (supraventricular tachycardia) Liver lesion 3. There are several enhancing lesions of the liver. Differential diagnosis would include enhancing metastatic foci or multifocal hepatocellular carcinoma. These lesions are not typical for hemangiomas with the enhancement being central and focal as opposed to the peripheral enhancement. Hepatic carcinoid is also included in the differential diagnosis. Suggest outpatient CT of the liver without and with contrast with three-phase post enhancement images Lumbar disc disease with radiculopathy Hormone replacement therapy (HRT) Syncope Depression Hypothyroidism GERD (gastroesophageal reflux disease) Anxiety Surgical History History of thyroidectomy History of cholecystectomy Hx of appendectomy H/O: hysterectomy S/P cubital tunnel release History of resection of rib History of surgery on lower extremity Family History Other Asthma Cancer Diabetes Hyperlipidemia Hypertension Stroke Thyroid disorder Tuberculosis Social History Smoking Status: Never smoker second hand exposure: No alcohol intake: never substance use type: denies use current occupational status: other Travel in the last 8 weeks?: None household members: spouse housing: house current occupational exposures/hazards: No caffeine: Yes PM Subjective & Objective Subjective Subjective:: Patient is a pleasant 64-year-old female who presents today for suture removal as well as follow-up of right knee x-ray imaging. Today she rates her pain a 4 out of 10. She denies any new trauma or injury. She does state that she is still having the constant pain with increased activity with her knee. She states it is numb and does cause significant disability affecting her ability perform activities of daily living such as cooking and cleaning. Patient denies any other changes. Patient does state today that her overall low back at the area of the surgery does have a little bit of pinching that she is not sure if that is something going on. Her Daniele has been reviewed and is appropriate. Review of Systems: General: No recent weight changes, no fever, no sleep disturbances Respiratory: No cough, no shortness of air, no recurring pulmonary infections Cardiovascular/peripheral vascular: No chest pain, no palpitations, no edema, no shortness of breath Gastrointestinal: No new onset incontinence, normal bowel movements reported Genitourinary: No new onset incontinence Musculoskeletal: Right knee pain Psychiatric: [Normal mood/affect] Neurological: [Denies weakness in extremities], [denies balance issues] Pain at rest (0-10 scale): 4 Objective Objective:: Physical Exam: General: Alert and oriented x3, no acute distress, pleasant and cooperative Lungs: Respirations even and unlabored, symmetrical chest expansion Eyes: PERRL Musculoskeletal: Flexion and extension of right knee somewhat guarded secondary to pain, [antalgic gait noted] Neurological: Speech clear, no gross sensory deficit Has patient had previous pain injection?: No Conservative treatment options previously tried: Home exercise plan Length of t reatment: Longer than 12 weeks Meds Home Medications and Allergies Home Medications ?Medication ?Instructions ?Recorded ?Confirmed ?Type aspirin 81 mg tablet,delayed 81 mg PO DAILY heart [facility] #90 05/07/23 10/03/24 Rx release tabs budesonide-formoterol HFA 160 1 puff inhalation BID 90 days 03/04/24 10/03/24 Rx mcg-4.5 mcg/actuation aerosol #10.2 grams inhaler (Symbicort) linaclotide 72 mcg capsule See Rx Instructions .Route 03/31/24 10/03/24 Rx (Linzess) .COMPLEX #90 caps levothyroxine 50 mcg tablet See Rx Instructions .Route 05/14/24 10/03/24 Rx .COMPLEX #30 tabs topiramate 50 mg tablet See Rx Instructions .Route 07/22/24 10/03/24 Rx .COMPLEX #60 tabs lorazepam 0.5 mg tablet 0.5 mg PO DAILY PRN anxiety #30 08/03/24 10/03/24 Rx tabs fluticasone propionate 50 See Rx Instructions .Route 08/05/24 10/03/24 Rx mcg/actuation nasal .COMPLEX #16 grams spray,suspension nadolol 40 mg tablet See Rx Instructions .Route 09/01/24 10/03/24 Rx .COMPLEX #30 tabs estradiol 1 mg tablet See Rx Instructions .Route 09/02/24 10/03/24 Rx .COMPLEX #90 tabs hydrocodone 5 mg-acetaminophen 325 1 tab PO DAILY PRN pain 30 days 09/09/24 10/03/24 Rx mg tablet #30 tabs rosuvastatin 10 mg tablet See Rx Instructions .Route 09/09/24 10/03/24 Rx .COMPLEX #90 tabs New Prescriptions to Start Prescriptions: Allergies Allergy/AdvReac Type Severity Reaction Status Date / Time rizatriptan Allergy Severe Anaphylaxis Verified 10/01/24 10:33 captopril Allergy Mild Hives Verified 10/01/24 10:33 vibegron (From Gemtesa) Allergy Rash Verified 10/01/24 10:33 Assessment and Plan *Assessment and plan (1) Right knee pain: Status: Acute Category: Medical Code(s): M25.561 - Pain in right knee Plan Patient is still experiencing significant pain with numbness in her right knee. This is a chronic issue that is gone on for longer than 6 months. Patient does have a prior history of surgery requiring hardware in her tibia. I did review with the patient that I we will proceed forward with ordering the MRI without contrast of her right knee to rule out possible tear or other abnormality causing the worsening symptoms. Patient was counseled that following this imaging we will review over regarding the possibility of sending her to orthopedics for possible surgical intervention. Patient agrees with this plan of care. We did remove all her sutures and applied skin glue and Steri-Strips today. Patient tolerated the procedure well with no complications. She was counseled to continue her postop restrictions the full 6 weeks until her incisions are healed. Patient will return to clinic in 1 month following her advanced imaging. Patient has tried and failed conservative therapy including oral medication, heat and ice, topicals, at home stretching exercise for longer than 12 weeks. Patient has been instructed to contact the clinic with any concerns before the next appointment. Dr. Liz has reviewed this note and agrees with this plan of care. This note was dictated using voice recognition software and make contain errors or omissions. All injections are used with Lidocaine, Bupivacaine and dexamethasone. Occasionally urine drug screen is needed to verify patient's compliance with our office pain contract. This is ordered based off specific treatments related to chronic pain with the potential to abuse certain medications.
== END 2024-10-03 23:59 | disposition home or self-care (01) ==
LOC: SC.PAIN 13:28
PROVIDERS: PCP Nurse Practitioner Family; Visit Provider Nurse Practitioner Family
DX: M25.561 Pain in right knee (principal); Z73.89 Other problems related to life management difficulty
CPT/HCPCS: 99212; G0463

== ENCOUNTER 2024-11-03 12:41 | Outpatient (CLI) | payer MEDICARE, MEDICAID, SELFPAY ==
--- NOTE | 2024-11-03 12:44 | MR_ITS ---
FINAL REPORT TECHNIQUE: Multiplanar and multisequence imaging the right knee was obtained without contrast. CLINICAL HISTORY: PT HAD SX 4/18-PRITI 6 WEEKS OUT RT KNEE PAIN. KNEE PAIN COMPARISON: None FINDINGS: Magnetic susceptibility artifact is present from an intramedullary jose a in the tibia. Bones: Limited evaluation of the marrow secondary to the intramedullary jose a. The joint space is preserved. There are no full thickness cartilage defects. Menisci: No meniscal tear is present. Ligaments: No cruciate or collateral ligament tear is present. Tendons/Muscles: The distal quadriceps tendon is thickened, which may be related to quadriceps tendinosis or postoperative change. The remainder of the tendons are unremarkable. Other: A small joint effusion is present. Remaining soft tissues are normal. IMPRESSION: Magnetic susceptibility artifact is present from an anterior medullary jose a placed in the tibia, which limits overall image quality. Distal quadriceps tendon thickening, related to either tendinosis or postoperative change. No meniscal or ligamentous tear is identified. Reviewed, Interpreted and Dictated by Samina Stevens MD Transcribed by Zaria Suggs Authenticated and [facility]
== END 2024-11-03 23:59 | disposition home or self-care (01) ==
LOC: RAD 12:42
PROVIDERS: PCP Nurse Practitioner Family; Visit Provider Nurse Practitioner Family
DX: M67.88 Other specified disorders of synovium and tendon, other site (principal); M25.561 Pain in right knee; Z18.11 Retained magnetic metal fragments
CPT/HCPCS: 73721

== ENCOUNTER 2024-11-04 10:20 | Outpatient (POV) | payer MEDICARE, MEDICAID, SELFPAY ==
[2024-11-04 11:02] VITALS: BP 108/79; PULSE 90; RESP 14; O2SAT 100; BMI 14.4
--- NOTE | 2024-11-04 12:04 | EXP.PAIN.SOA ---
[facility] Disclaimer: The information contained in this section may have been updated after the patient was seen, as this information can be updated by other users. Medical History Implantable loop recorder present Asthma Encounter for loop recorder at end of battery life Bilateral hearing loss Allergic rhinitis Dyspnea on exertion Multiple lung nodules on CT History of COPD History of asthma Erosion of vaginal mesh Incontinence in female Urinary urgency ABRAM (stress urinary incontinence, female) Postmenopausal atrophic vaginitis Dysphagia Frequent headaches Pulmonary nodules Hoarseness Angina pectoris Fatigue Edema of both lower extremities Numbness of tongue Dizziness Abnormal electrocardiogram [ECG] [EKG] Tachycardia Sepsis Osteopenia Anemia Chronic pain disorder Dyspnea Family history of colon cancer Lumbar disc disease with radiculopathy Primary osteoarthritis of both feet Acquired equinus deformity of both feet Lumbar disc disease with radiculopathy Migraine headache Constipation Daytime somnolence Snoring Restless sleeper Paroxysmal SVT (supraventricular tachycardia) Liver lesion 3. There are several enhancing lesions of the liver. Differential diagnosis would include enhancing metastatic foci or multifocal hepatocellular carcinoma. These lesions are not typical for hemangiomas with the enhancement being central and focal as opposed to the peripheral enhancement. Hepatic carcinoid is also included in the differential diagnosis. Suggest outpatient CT of the liver without and with contrast with three-phase post enhancement images Lumbar disc disease with radiculopathy Hormone replacement therapy (HRT) Syncope Depression Hypothyroidism GERD (gastroesophageal reflux disease) Anxiety Surgical History History of thyroidectomy History of cholecystectomy Hx of appendectomy H/O: hysterectomy S/P cubital tunnel release History of resection of rib History of surgery on lower extremity Family History Other Asthma Cancer Diabetes Hyperlipidemia Hypertension Stroke Thyroid disorder Tuberculosis Social History Smoking Status: Never smoker second hand exposure: No alcohol intake: never substance use type: denies use current occupational status: other Travel in the last 8 weeks?: None household members: spouse housing: house current occupational exposures/hazards: No caffeine: Yes PM Subjective & Objective Subjective Subjective:: Patient is a pleasant 64-year-old female who presents today for follow-up of her right knee MRI. Today she rates her pain a 5 out of 10. She denies any new trauma or injury. She states she is still experiencing the constant numbness in her right knee. She states this does interfere with her ability perform activities of daily living such as cooking and cleaning. Patient states that she is always worried that her knee is just going to give out causing her to fall. Patient is interested in any help we may be able to provide as this is been going on for years and progressively worsen. Her Daniele has been reviewed and is appropriate. Review of Systems: General: No recent weight changes, no fever, no sleep disturbances Respiratory: No cough, no shortness of air, no recurring pulmonary infections Cardiovascular/peripheral vascular: No chest pain, no palpitations, no edema, no shortness of breath Gastrointestinal: No new onset incontinence, normal bowel movements reported Genitourinary: No new onset incontinence Musculoskeletal: Right knee pain/numbness Psychiatric: [Normal mood/affect] Neurological: [Denies weakness in extremities], [denies balance issues] Pain at rest (0-10 scale): 5 Objective Objective:: Physical Exam: General: Alert and oriented x3, no acute distress, pleasant and cooperative Lungs: Respirations even and unlabored, symmetrical chest expansion Eyes: PERRL Musculoskeletal: Flexion and extension of right knee somewhat guarded secondary to pain, [antalgic gait noted] altered sensation to light touch Neurological: Speech clear, no gross sensory deficit Has patient had previous pain injection?: No Conservative treatment options previously tried: Home exercise plan Length of treatment: Longer than 12 weeks Meds Home Medications and Allergies Home Medications ?Medication ?Instructions ?Recorded ?Confirmed ?Type aspirin 81 mg tablet,delayed 81 mg PO DAILY heart Desalitech #90 05/07/23 11/04/24 Rx release tabs budesonide-formoterol HFA 160 1 puff inhalation BID 90 days 03/04/24 11/04/24 Rx mcg-4.5 mcg/actuation aerosol #10.2 grams inhaler (Symbicort) linaclotide 72 mcg capsule See Rx Instructions .Route 03/31/24 11/04/24 Rx (Linzess) .COMPLEX #90 caps topiramate 50 mg tablet See Rx Instructions .Route 07/22/24 11/04/24 Rx .COMPLEX #60 tabs estradiol 1 mg tablet See Rx Instructions .Route 09/02/24 11/04/24 Rx .COMPLEX #90 tabs rosuvastatin 10 mg tablet See Rx Instructions .Route 09/09/24 11/04/24 Rx .COMPLEX #90 tabs hydrocodone 5 mg-acetaminophen 325 1 tab PO DAILY PRN pain 30 days 10/07/24 11/04/24 Rx mg tablet #30 tabs lorazepam 0.5 mg tablet 0.5 mg PO DAILY PRN anxiety #30 10/07/24 11/04/24 Rx tabs nadolol 20 mg tablet 10 mg PO DAILY 10/07/24 11/04/24 History fluticasone propionate 50 See Rx Instructions .Route 10/29/24 11/04/24 Rx mcg/actuation nasal .COMPLEX #16 grams spray,suspension levothyroxine 50 mcg tablet See Rx Instructions .Route 11/03/24 11/04/24 Rx .COMPLEX #30 tabs New Prescriptions to Start Prescriptions: Allergies Allergy/AdvReac Type Severity Reaction Status Date / Time rizatriptan Allergy Severe Anaphylaxis Verified 10/01/24 10:33 captopril Allergy Mild Hives Verified 10/01/24 10:33 vibegron (From Gemtesa) Allergy Rash Verified 10/01/24 10:33 Assessment and Plan *Assessment and plan (1) Right knee pain: Status: Acute Category: Medical Code(s): M25.561 - Pain in right knee Plan Patient continues to experience significant pain and numbness in her right knee. Patient did have limited range of motion and altered sensation during today's exam. I did discuss over the findings regarding her MRI. I have also recommended with her that I do believe she would benefit from a infrapatellar nerve block. Risk and benefits were discussed with patient and she would like to proceed forward with this plan of care. Patient has tried and failed conservative therapy including oral medication, heat and ice, topicals, physical therapy and at home stretching exercise for longer than 12 weeks that was physician guided. We will submit to insurance for the right infrapatellar nerve block. This will be done without fluoroscopic or ultrasound guidance. Patient has been instructed to contact the clinic with any concerns before the next appointment. Dr. Liz has reviewed this note and agrees with this plan of care. This note was dictated using voice recognition software and make contain errors or omissions. All injections are used with Lidocaine, Bupivacaine and dexamethasone. Occasionally urine drug screen is needed to verify patient's compliance with our office pain contract. This is ordered based off specific treatments related to chronic pain with the potential to abuse certain medications.
== END 2024-11-04 23:59 | disposition home or self-care (01) ==
LOC: SC.PAIN 10:21
PROVIDERS: PCP Nurse Practitioner Family; Visit Provider Nurse Practitioner Family
DX: M25.561 Pain in right knee (principal); R20.2 Paresthesia of skin; Z98.890 Other specified postprocedural states
CPT/HCPCS: 99212; G0463

== ENCOUNTER 2024-11-10 09:25 | Outpatient (CLI) | payer MEDICARE, MEDICAID, SELFPAY ==
--- OUTSIDE RECORDS SUMMARY | 2024-11-10 09:30 | XMS_ITS | Clinical Summary ---
Author Organization Healthcare Address [address] [place] [address] Care Team Providers Care Mathematical Physicist Name Role Phone Lulu Noyola Primary Care Provider [phone] Giacomo Pereira MD Unavailable Eulalia Purvis Unavailable [phone] Pam Fay RN Unavailable [phone] Encounters Date Type Department Care Team Description 10/03/2024 [facility] [address] [place] [address] Lionel Correia MD Urinary incontinence, unspecified type (Primary Dx); Full incontinence of feces from Last 3 Months Family History Medical History Relation Name Comments Anxiety disorder Other 1 Depression Other 2 Diabetes Other 3 Hypertension Other 4 Other cancer Other 5 Migraines Other 6 Heart attack Other 7 Relation Name Status Comments Other 1 Other 2 Other 3 Other 4 Other 5 Other 6 Other 7 Social History Tobacco Use Types Packs/Day Years Used Date Smoking Tobacco: Never Alcohol Use Standard Drinks/Week Comments Yes 0 (1 standard drink = 0.6 oz pure alcohol) Alcoholic Drinks/day: Rarely consumes alcohol Comments Unknown Sex and Gender Information Value Date Recorded Sex Assigned at Not on file Legal Sex Female 6:01 PM EDT Gender Identity Not on file Sexual Orientation Not on file Last Filed Vital Signs Vital Sign Reading Time Taken Comments Blood Pressure 127/80 11/21/2022 8:44 AM EDT Pulse 83 11/21/2022 8:44 AM EDT Temperature - - Respiratory Rate - - Oxygen Saturation - - Inhaled Oxygen Concentration - - Weight 68 kg (150 lb) 11/21/2022 8:44 AM EDT Height 162.6 cm (5' 4 ) 11/21/2022 8:44 AM EDT Body Mass Index 25.75 11/21/2022 8:44 AM EDT Plan of Treatment Upcoming Encounters Date Type Department Care Team (Late st Contact Info) Description 01/06/2025 2:30 PM EDT Office Visit [facility] General Surgery [address], [address] [place] [address] Dwayne Adame MD [address] [place] [address] Health Maintenance Due Date Last Done Comments [facility]-Bone Density Scan 1959 [facility]-Depression Screening 1959 [facility]-Hepatitis C Screening 1959 [facility]-Medicare Annual Wellness (AWV) 1959 [facility]-Infant/Child/Adol SDOH Screenings 1959 [facility]-Obesity Intervention 1965 [facility]- SDOH Screenings 1977 [facility]-Adult SDOH Screenings 1977 CT Colonography 02/29/2004 Colonoscopy 02/29/2004 FIT-DNA 02/29/2004 FIT 02/29/2004 FOBT 02/29/2004 Sigmoidoscopy 02/29/2004 [facility]-Colorectal Cancer Screening 02/29/2004 [facility]-Breast Cancer Screening 2009 [facility]-Zoster Vaccines (2 of 3) 01/07/2019 11/12/2018, 06/12/2018 [id number] Vaccine (2023- season) 2024 02/12/2024, 05/18/2022, 07/04/2021, Additional history exists [facility]-Influenza Vaccine (Season Ended) 2025 06/27/2023, 03/30/2021, 04/13/2020, Additional history exists [facility]-DTaP,Tdap,and Td Vaccines (2 - Td or Tdap) 12/26/2028 12/26/2018 [facility]-RSV Vaccine: 60+ Years or (1 - 1-dose 75+ series) 2034 [facility]-Hepatitis A Vaccines Aged Out 06/12/2018 No longer eligible based on patient's age to complete this topic [facility]-Pneumococcal Vaccine: 50+ Years Completed 08/17/2022, 10/25/2017 HPV Vaccines Aged Out No longer eligi ble based on patient's age to complete this topic [facility]-HIB Vaccines Aged Out No longer e ligible based on patient's age to complete this topic [facility]-IPV Vaccines Aged Out No longer e ligible based on patient's age to complete this topic [facility]-Rotavirus Vaccines Aged Out No lo nger eligible based on patient's age to complete this topic Insurance [place] MEDICARE AETNA MEDICARE Care Teams Mathematical Physicist Relationship Specialty Start Date End Date Lulu Noyola PA [address] [place] [address] PCP - General 10/15/20 Giacomo Pereira MD [address] [place] [phone] Transplant Physician Transplant Surgery 10/24/20 [place] [address] Surgical Navigator Transplant 10/24/20 Pam Fay RN [facility] [address] [place] [address] Surgical Navigator Transplant Surgery 01/13/21
--- OUTSIDE RECORDS SUMMARY | 2024-11-10 09:30 | XMS_ITS | Encounter Summary ---
Author Organization [facility] Address [address] [place] [address] Care Team Providers Care Plastics Patternmaker Name Role Phone Lulu Noyola Primary Care Provider [phone] Giacomo Pereira MD Unavailable Eulalia Purvis Unavailable [phone] Pam Fay RN Unavailable [phone] Encounter Details Date Type Department Care Team (Late st Contact Info) Description 03/14/2019 [facility] OTTR Encounter Historical OTTR [address] [place] [address] ProviderArely MD [address] [place], [place] [id number] Social History Tobacco Use Types Packs/Day Years Used Date Smoking Tobacco: Never Assessed Comments Unknown Sex and Gender Information Value Date Recorded Sex Assigned at Not on file Legal Sex Female 6:01 PM EDT Gender Identity Not on file Sexual Orientation Not on file documented as of this encounter Miscellaneous Notes * Progress Notes - ProviderArely MD - 03/14/2019 9:13 AM EDT DOS 04/16/2019 MRI Abdomen w wo contrast [id number] 1. [employer] Medicare auth approved auth # [id number] valid dates 04/16/2019-05/16/2019 updating IAuth and nurse. documented in this encounter Plan of Treatment Upcoming Encounters Date Type Department Care Team (Late st Contact Info) Description 01/06/2025 2:30 PM EDT Office Visit [facility] General [facility] [address], [address] [place] [address] Dwayne Adame MD [address] [facility] [address] [place] [address] documented as of this encounter Visit Diagnoses Not on filedocumented in this encounter Care Teams Plastics Patternmaker Relationship Specialty Start Date End Date Lulu Noyola PA [address] [place] [address] PCP - General 10/15/20 Giacomo Pereira MD [address] [facility] [address] [place] [address] Transplant Physician Transplant Surgery 10/24/20 [place] [address] Surgical Navigator Transplant 10/24/20 Pam Fay RN [facility] [address] [place] [address] Surgical Navigator Transplant Surgery 01/13/21 documented as of this encounter
--- OUTSIDE RECORDS SUMMARY | 2024-11-10 09:30 | XMS_ITS | Encounter Summary ---
Author Organization [facility] Address [address] [place] [address] Care Team Providers Care Sheet Metal Duct Installer Name Role Phone Lulu Noyola Primary Care Provider [phone] Giacomo Pereira MD Unavailable Eulalia Purvis Unavailable [phone] Pam Fay RN Unavailable [phone] Encounter Details Date Type Department Care Team (Late st Contact Info) Description 03/13/2019 [facility] OTTR Encounter Historical OTTR [address] [place] [address] Cordelia Haynes [place] [id number] Social History Tobacco Use Types Packs/Day Years Used Date Smoking Tobacco: Never Assessed Comments Unknown Sex and Gender Information Value Date Recorded Sex Assigned at Not on file Legal Sex Female 6:01 PM EDT Gender Identity Not on file Sexual Orientation Not on file documented as of this encounter Miscellaneous Notes * Progress Notes - Cordelia Haynes - 03/13/2019 2:59 PM EDT LVM @ [phone] with 04/16/19 12:15 pm arrival time for labs/MBS/MRI requesting confirmation call. Appt schedule mailed. Note to for precert update on rescheduled MRI from 03/12/19. documented in this encounter Plan of Treatment Upcoming Encounters Date Type Department Care Team (Late st Contact Info) Description 01/06/2025 2:30 PM EDT Office Visit [facility] General Surgery [address] [place] [address] Dwayne Adame MD [address] [facility] [address] [place] [address] documented as of this encounter Visit Diagnoses Not on filedocumented in this encounter Care Teams Sheet Metal Duct Installer Relationship Specialty Start Date End Date Lulu Noyola PA [address] [place] [address] PCP - General 10/15/20 Giacomo Pereira MD [address] [facility] [address] [place] [address] Transplant Physician Transplant Surgery 10/24/20 [place] [address] Surgical Navigator Transplant 10/24/20 Pam Fay RN [facility] [address] [place] [address] Surgical Navigator Transplant Surgery 01/13/21 documented as of this encounter
--- OUTSIDE RECORDS SUMMARY | 2024-11-10 09:30 | XMS_ITS | Encounter Summary ---
Author Organization [facility] Address [address] [place] [id number] Care Team Providers Care Hatchery Worker Name Role Phone Lulu Noyola Primary Care Provider [phone] Giacomo Pereira MD Unavailable Eulalia Purvis Unavailable [phone] Pam Fay RN Unavailable [phone] Encounter Details Date Type Department Care Team (Late st Contact Info) Description 03/18/2018 [facility] OTTR Encounter Historical OTTR [address] [place] [address] Pam Fay, RN [facility] [address] [place] [address] Social History Tobacco Use Types Packs/Day Years Used Date Smoking Tobacco: Never Assessed Comments Unknown Sex and Gender Information Value Date Recorded Sex Assigned at Not on file Legal Sex Female 6:01 PM EDT Gender Identity Not on file Sexual Orientation Not on file documented as of this encounter Miscellaneous Notes * Progress Notes - Pam Fay, RN - 03/18/2018 3:22 PM EDT Reviewed MRI w/ Dr. Pereira. Plan is for repeat labs, MRI, and surgeon visit in 1 year. Notified patient, who confirmed understanding. Faxed results and note regarding plan to Mitzy Rose. Note to CT to schedule. * Progress Notes - ProviderArely MD - 03/07/2018 8:42 AM EDT DOS 03/14/2018 MRI Per HEW pt. needs MRI GENE. Pt. scheduled for 03/14 @ 2:30pm Pav A (NPO x 6 hours, 1:30pm arrival). HEW to notify pt. when she discusses US results. 1. Federal Medicare NPR, 2. [place] Medicaid Traditional auth approved valid dates 03/07/2018-05/05/2018 based on med nec will update IAuth with auth # in a couple of hours. Auth can be obtained by calling [phone] ref # [id number]. * Progress Notes - Pam Fay RN - 03/06/2018 4:58 PM EDT Pt. notfied of and confirmed 03/14 MRI and instructions, knows to call w/ any questions. Will review results w/ Dr. Pereira and contact pt. w/ plan. * Progress Notes - Arely Hernandez MD - 03/06/2018 3:40 PM EDT Per HEW pt. needs MRI GENE. Pt. scheduled for 03/14 @ 2:30pm Pav A (NPO x 6 hours, 1:30pm arrival).HEW to notify pt. when she discusses US results. Note to TH for 03/14 MRI. * Progress Notes - Pam Fay RN - 03/06/2018 1:58 PM EDT US reviewed by Dr. Pereira, is not helpful in characterizing liver lesions. Pt. needs MRI liver protocol at [facility], should not be performed elsewhere and needs to be done within the next 2-3 weeks. Will discuss w/ pt. and notify of appt. once scheduled. * Progress Notes - ProviderArely MD - 02/12/2018 3:06 PM EDT DOS 02/27/2018 US Giovanni/Art Abdomen , 1. Federal Medicare NPR, 2. [place] Medicaid Traditional NPR, updating nurse and IAuth * Progress Notes - ProviderArely MD - 02/06/2018 9:13 AM EDT Pt. scheduled for US on 02/27 @ 6:30am Pav A (NPO x 8 hours, 6:00am). Pt. confirmed appt. Mailed appt. reminder. Note to for US precert [id number]. * Progress Notes - Pam Fay RN - 02/05/2018 3:18 PM EDT Called pt. to notify of TB plan. LVM advising that US w/ doppler would be scheduled, requested callback if she'd like to discuss. Order in SCM. Note to CT to schedule for next available. * Progress Notes - Pam Fay RN - 02/05/2018 3:18 PM EDT Pt. discussed in TB on Sunday, 02/01. Plan Details: No concerning findings for malignancy. Liver lesions appear to be AV malformations. We will obtain ultrasound of liver with color doppler to confirmthat these are AVM's. * Progress Notes - Pam Fay RN - 01/24/2018 1:57 PM EDT Pt. seen in clinic today by Dr. Pereira. Plan is to discuss in tumor board next Sunday, 02/01. Advised pt. that I'd call by EOD the following Sunday w/ plan. She confirmed understanding and knows to callw/ any questions prior to then. * Progress Notes - Arely Hernandez MD - 01/23/2018 8:17 AM EDT MBS in OR this afternoon. Called pt. LEVYM asking for call back to r/s to either tmrw; 12pm labs, 1pmvisit or next Weds. * Progress Notes - Enriqueta Villarreal - 01/18/2018 2:44 PM EDT Radiology reports received from [facility] - saved in AllDo. * Progress Notes - Enriqueta Villarreal - 01/16/2018 9:59 AM EDT CD images received from [facility] - downloaded to PACS. * Progress Notes - Arely Hernandez MD - 01/15/2018 3:01 PM EDT Pt. called back, scheduled for ICE on 01/23; labs @ 1pm, visit ky/ Kelli @ 1:40pm. Pt. confirmed. Mailed ICE ppw. Faxed Mitzy Rose's office notifying of appt. * Progress Notes - Arely Hernandez MD - 01/15/2018 2:47 PM EDT Called pt. LVM asking for call back to schedule ICE. * Progress Notes - Enriqueta Villarreal - 01/15/2018 1:54 PM EDT Faxed request for cd images to [facility] for fedex priority shipping. Records received fromChaitanya Rose's office - saved in AllDocs. * Progress Notes - Enriqueta Villarreal E - 01/14/2018 3:32 PM EDT Surgical referral from Mitzy Rose [place] [facility] 57 [place] with multiple liver lesions. Called referring office - spoke to Luana, requested records - Luana will fax these tomorrow when she has the chart. Ms Thrasher was seen by Chaitanya Rose at the specialty clinic in [place] - that clinic does not have any records. Note to HEW/CNT documented in this encounter Plan of Treatment Upcoming Encounters Date Type Department Care Team (Late st Contact Info) Description 01/06/2025 2:30 PM EDT Office Visit [facility] General Surgery [address], [address] [place] [address] Dwayne Adame MD [address] [place] [address] documented as of this encounter Procedures Procedure Name Priority Date/Time Associated Diagnosis Comments OTTR LAB RESULTS (MANUAL) Routine 01/24/2018 11:33 AM EDT documented in this encounter Results * OTTR LAB RESULTS (MANUAL) (01/24/2018 11:33 AM EDT) External Estimated GFR 69.90 EXTERNAL LAB 01/24/2018 11:3 3 AM EDT Narrative EXTERNAL LAB - 01/24/2018 1:17 PM EDT Automated LAB Interface us Historical Provider LAB BLOOD ORDERABLES Hortencia omayra Result EXTERNAL LAB documented in this encounter Visit Diagnoses Not on filedocumented in this encounter Care Teams Hatchery Worker Relationship Specialty Start Date End Date Lulu Noyola PA [address] [place] [address] PCP - General 10/15/20 Giacomo Pereira MD [address] [facility] [address] [place] [address] Transplant Physician Transplant Surgery 10/24/20 [place] [address] Surgical Navigator Transplant 10/24/20 Pam Fay, RN [facility] [address] [place] [address] Surgical Navigator Transplant Surgery 01/13/21 documented as of this encounter
--- OUTSIDE RECORDS SUMMARY | 2024-11-10 09:30 | XMS_ITS | Encounter Summary ---
Author Organization [facility] Address [address] [place] [address] Care Team Providers Care Nurse Specialist Name Role Phone Lulu Noyola Primary Care Provider [phone] Giacomo Pereira MD Unavailable Eulalia Purvis Unavailable [phone] Pam Fay RN Unavailable [phone] Encounter Details Date Type Department Care Team (Late st Contact Info) Description 03/12/2019 [facility] OTTR Encounter Historical OTTR [address] [place] [address] [place] [address] Social History Tobacco Use Types Packs/Day Years Used Date Smoking Tobacco: Never Assessed Comments Unknown Sex and Gender Information Value Date Recorded Sex Assigned at Not on file Legal Sex Female 6:01 PM EDT Gender Identity Not on file Sexual Orientation Not on file documented as of this encounter Miscellaneous Notes * Progress Notes - Eulalia Purvis - 03/12/2019 9:36 AM EDT Note to Crystal: Ms. Thrasher did not show for her appointment today, can you please reschedule. documented in this encounter Plan of Treatment Upcoming Encounters Date Type Department Care Team (Late st Contact Info) Description 01/06/2025 2:30 PM EDT Office Visit [facility] General Surgery [address] [place] [address] Dwayne Adame MD [address] [place] [address] documented as of this encounter Visit Diagnoses Not on filedocumented in this encounter Care Teams Nurse Specialist Relationship Specialty Start Date End Date Lulu Noyola PA [address] [place] [address] PCP - General 10/15/20 Giacomo Pereira MD [address] [place] [address] Transplant Physician Transplant Surgery 10/24/20 [place] [address] Surgical Navigator Transplant 10/24/20 Pam Fay RN [facility] [address] [place] [address] Surgical Navigator Transplant Surgery 01/13/21 documented as of this encounter
--- OUTSIDE RECORDS SUMMARY | 2024-11-10 09:30 | XMS_ITS | Encounter Summary ---
Author Organization Healthcare Address [address] [place] [address] Care Team Providers Care Bench Scientist Name Role Phone Lulu Noyola Primary Care Provider [phone] Giacomo Pereira MD Unavailable Eulalia Purvis Unavailable [phone] Pam Fay RN Unavailable [phone] Encounter Details Date Type Department Care Team (Latest Contact Info) Description 10/03/2024 [facility] [address] [place] [address] Lionel Correia MD [address] [place] [address] Urinary incontinence, unspecified type (Primary Dx); Full incontinence of feces Social History Tobacco Use Types Packs/Day Years [...] on file documented as of this encounter Plan of Treatment Upcoming Encounters Date Type Department Care Team (Late st Contact Info) Description 01/06/2025 2:30 PM EDT Office Visit [facility] General [facility] [address], [address] [place] [address] Dwayne Adame MD [address] [place] [address] documented as of this encounter Visit Diagnoses Diagnosis Urinary incontinence, unspecified type- Primary Full incontinence of feces documented in this encounter Care Teams Bench Scientist Relationship Specialty Start Date End Date Lulu Noyola PA [address] [place] [address] PCP - General 10/15/20 Giacomo Pereira MD [address] [place] [address] Transplant Physician Transplant Surgery 10/24/20 [place] [address] Surgical Navigator Transplant 10/24/20 Pam Fay RN [facility] [address] [place] [address] Surgical Navigator Transplant Surgery 01/13/21 documented as of this encounter
--- OUTSIDE RECORDS SUMMARY | 2024-11-10 09:30 | XMS_ITS | Encounter Summary ---
Author Organization [facility] Address [address] [place] [address] Care Team Providers Care Manager Cash Name Role Phone Lulu Noyola Primary Care Provider [phone] Giacomo Pereira MD Unavailable Eulalia Purvis Unavailable [phone] Pam Fay RN Unavailable [phone] Encounter Details Date Type Department Care Team (Late st Contact Info) Description 03/24/2019 [facility] Encounter Historical [facility] [address] [place] [address] Cordelia Haynes [place] [phone] Social History Tobacco Use Types Packs/Day Years Used Date Smoking Tobacco: Never Assessed Comments Unknown Sex and Gender Information Value Date Recorded Sex Assigned at Not on file Legal Sex Female 6:01 PM EDT Gender Identity Not on file Sexual Orientation Not on file documented as of this encounter Miscellaneous Notes * Progress Notes - Cordelia Haynes - 03/24/2019 1:30 PM EDT Ms. Thrasher called back and said she has decided that she does not want to continue care. She did not give a reason, just that she Didnt want to do it . Appt's and MRI cancelled. Note to [facility], [facility] and [facility] for update. * Progress Notes - Cordelia Haynes - 03/24/2019 1:28 PM EDT LVChirag @ [phone] with 04/16/19 12:15 pm arrival time for labs/MBS/MRI requesting confirmation call. documented in this encounter Plan of Treatment Upcoming Encounters Date Type Department Care Team (Late st Contact Info) Description 01/06/2025 2:30 PM EDT Office Visit [facility] General Surgery [address], [address] [place] [address] Dwayne Adame MD [address] [place] [address] documented as of this encounter Visit Diagnoses Not on filedocumented in this encounter Care Teams Manager Cash Relationship Specialty Start Date End Date Lulu Noyola PA [address] [facility] [place] [phone] PCP - General 10/15/20 Giacomo Pereira MD [address] [place] [address] Transplant Physician Transplant Surgery 10/24/20 [place] [address] Surgical Navigator Transplant 10/24/20 Pam Fay RN [facility] [address] [place] [address] Surgical Navigator Transplant Surgery 01/13/21 documented as of this encounter
--- OUTSIDE RECORDS SUMMARY | 2024-11-10 09:30 | XMS_ITS | Encounter Summary ---
Author Organization [facility] Address [address] [place] [address] Care Team Providers Care Instrument Maintenance Supervisor Name Role Phone Lulu Noyola Primary Care Provider [phone] Giacomo Pereira MD Unavailable Eulalia Purvis Unavailable [phone] Pam Fay RN Unavailable [phone] Encounter Details Date Type Department Care Team (Late st Contact Info) Description 11/26/2018 [facility] Encounter Historical OT[facility] [address] [place] [address] Cordelia Haynes [place] [phone] Social History Tobacco Use Types Packs/Day Years Used Date Smoking Tobacco: Never Assessed Comments Unknown Sex and Gender Information Value Date Recorded Sex Assigned at Not on file Legal Sex Female 6:01 PM EDT Gender Identity Not on file Sexual Orientation Not on file documented as of this encounter Miscellaneous Notes * Progress Notes - Cordelia Haynes - 11/26/2018 4:52 PM EDT Called and confirmed 03/12/19 6:30 am arrival time w/ MsSalazar Thrasher. Appt reminder mailed Note to for MRI precert documented in this encounter Plan of Treatment Upcoming Encounters Date Type Department Care Team (Late Contact Info) Description 01/06/2025 2:30 PM EDT Office Visit [facility] [address], [address] [place] [address] Dwayne Adame MD [address] [place] [address] documented as of this encounter Visit Diagnoses Not on filedocumented in this encounter Care Teams Instrument Maintenance Supervisor Relationship Specialty Start Date End Date Lulu Noyola PA [address] [facility] [place] [address] PCP - General 10/15/20 Giacomo Pereira MD [address] [place] [address] Transplant Physician Transplant Surgery 10/24/20 [place] [address] Surgical Navigator Transplant 10/24/20 Pam Fay, RN [facility] [address] [address] Surgical Navigator Transplant Surgery 01/13/21 documented as of this encounter
--- OUTSIDE RECORDS SUMMARY | 2024-11-10 09:30 | XMS_ITS | Clinical Summary ---
Author Organization [facility] Address [address] [place] [address] Phone Care Team Providers Care Supervisor [employer] Name Role Phone Devan Lundberg NP Primary Care Provider [phone] Allergies Active Allergy Reactions Criticality Noted Date Comments Captopril Hives Low 05/31/2023 Vibegron Rash High 07/30/2023 PAIN WITH 7 WITHOUT URINATION Lactose Other (See Comments) Medium 07/30/2023 GI UPSET. BLOATING Levocetirizine Hives High 07/30/2023 Rizatriptan Shortness Of Breath,Swelling,Rash High 07/30/2023 TONGUE SWELLED, REDNESS AND RASH Medications nadoloL (CORGARD) 40 mg Oral Tablet Take 20 mg by mouth nightly. 3 Active LORazepam (ATIVAN) 0.5 mg Oral Tablet Take 0.5 mg by mouth as needed. 3 Active rosuvastatin (CRESTOR) 10 mg Oral Tablet Take 10 mg by mouth nightly. 3 Active LEVOthyroxine (SYNTHROID) 25 mcg Oral Tablet 25 mcg daily. 3 Active linaCLOtide 72 mcg Oral Capsule daily. 3 Active estradioL (ESTRACE) 1 mg Oral Tablet 1 mg daily. 3 Active neomycin-colist -HC-thonzonium (CORTISPORIN TC) 3.3-3-10-0.5 mg/mL Otic Drops, SuspensionIndic ations:chronic suppurative otitis media Place 4 Drops into both ears as needed for Other. 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 3 Active rimegepant 75 mg Oral Tablet, Rapid Dissolve 75 mg. 3 Active Cholecalciferol , Vitamin D3, 1,250 mcg (50,000 unit) Oral Capsule 1,000 mcg daily. 3 Active aspirin 81 mg Oral Tablet, Delayed Release (E.C.) Take 81 mg by mouth. 3 Active topiramate (TOPAMAX) 25 mg Oral TabletIndicatio ns:migraine prevention 50 mg 2 times daily. Indications: migraine prevention 3 Active DULoxetine (CYMBALTA) 60 mg Oral Capsule, Delayed Release(E.C.) Take 1 Capsule by mouth daily. Active ondansetron (ZOFRAN-ODT) 4 mg Oral Tablet, Rapid Dissolve Take 1 Tablet by mouth every 6 hours as needed for Nausea. 30 Tablet 4 Active HYDROcodone-maia taminophen (NORCO) 5-325 mg Oral Tablet Take 1 Tablet by mouth every 6 hours as needed for Acute Pain (R52) (AND HS). 10 Tablet 4 Active phenazopyridine (PYRIDIUM) 200 mg Oral Tablet Take 1 Tablet by mouth 3 times daily as needed for Pain (bladder pain or spasm). 30 Tablet 4 Active estradioL (ESTRACE) 0.01 % (0.1 mg/gram) Vagl CreamIndication s:Vaginal atrophy Do not use Applicator. Apply pea-size amount with fingertip nightly x2 weeks, then apply 2-3 times per week thereafter 42.5 g 1 4 Active Active Problems Problem Noted Date Diagnosed Date Lesion of bladder 08/09/2023 Gross hematuria 07/12/2023 OAB (overactive bladder) 06/06/2023 Exposure of implanted vaginal mesh 06/06/2023 Stress incontinence in female 06/06/2023 Surgical History Surgery Date Site/Laterality Comments HYSTERECTOMY 06/04/2001 - 06/03/2002 THYROID SURGERY 06/04/2004 - 06/03/2005 Right APPENDECTOMY 06/04/2001 - 06/03/2002 CHOLECYSTECTOMY 06/04/2001 - 06/03/2002 CARDIAC SURGERY 06/04/2020 - 06/03/2021 LOOP RECORDER IMPLANT X2 FIRST RIB REMOVAL 06/04/2004 - 06/03/2005 ARM SURGERY 06/04/2004 - 06/03/2005 Right CUBITAL TUNNEL RELEASE SECTION 1977, 1983 COLONOSCOPY 06/04/2022 - 06/03/2023 X2 CARDIAC CATHETERIZATION 06/04/2022 - 06/03/2023 R/T SOB, NO DISEASE. BLADDER SURGERY 06/04/2005 - 06/03/2006 BLADDER TACK SHOULDER SURGERY 06/04/2014 - 06/03/2015 Right SHOULDER CANCER REMOVED EYE SURGERY 06/04/2002 - 06/03/2003 Bilateral LASIK BACK SURGERY 06/04/2019 - 06/03/2020 PAIN PUMP IMPLANTED THEN REMOVED 2019, MULTIPLE EPIDURAL INJECTIONS KNEE SURGERY 06/04/2020 - 06/03/2021 Right TIBIA FIBULA BROKE/REPAIR-HARDWARE CYSTOSCOPY 08/09/2023 Bladder/N/A .; Surgeon: Diana uBrkett MD; Location: [facility]; Service: Gynecology URETHRA SURGERY 09/06/2023 N/A Cystoscopy, Urethral Bulking with Macroplastique; Surgeon: Diana Burkett MD; Location: [facility] OR; Service: Urogynecology Medical devices from this surgery are in the Medical Devices section. Medical History Medical History Date Comments Allergic rhinitis due to pollen Shortness of breath Hypertension Hyperlipidemia Angina pectoris EVERY ONCE IN A WHILE. 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 USUALLY HAPPENS WITH OVEREXERTION OR ANXIETY. LAST FELT OVER A YEAR. HAS LOOP RECORDER SINCE 2018 Irritable bowel syndrome Liver disease 2023 Hepatic nodules/ TWO NEW SPOTS ON CT SCAN 07/2023 Headache Migraine Urinary incontinence Thyroid disease Cancer (HCC) 2001 FEMALE HAD HYS TERECTOMY, SKIN 2014 RT SHOULDER BASAL CELL CARCINOMA, 2016 CHEST Anxiety and depression Family History Medical History Relation Name Comments Anesth Problems Neg Hx Social History Tobacco Use Types Packs/Day Years Used Date Smoking Tobacco: Never Smokeless Tobacco: Never Tobacco Cessation:Counseling Given: Not Answered Alcohol Use Standard Drinks/Week Comments Yes 0 (1 standard drink = 0.6 oz pur e alcohol) RARE Sexually Active Control Partners Comments Not Currently Comments No Sex and Gender Information Value Date Recorded Sex Assigned at Not on file Legal Sex Female 7:58 AM EDT Gender Identity Not on file Sexual Orientation Not on file Obstetrics History Last Filed Vital Signs Vital Sign Reading Time Taken Comments Blood Pressure 91/65 09/06/2023 11:00 AM EDT Pulse 80 11/05/2023 9:28 AM EDT Temperature 36.3 C (97.3 F) 09/06/2023 10:34 AM EDT Respiratory Rate 18 09/06/2023 10:34 AM EDT Oxygen Saturation 99% 11/05/2023 9:28 AM EDT Inhaled Oxygen Concentration - - Weight 50.4 kg (111 lb 3.2 oz) 11/05/2023 9:28 A M EDT Height 162.6 cm (5' 4 ) 09/06/2023 7:08 AM EDT Body Mass Index 19.09 09/06/2023 7:08 AM EDT Plan of Treatment Health Maintenance Due Date Last Done Comments Wellness Exam Medicare 1963 Hepatitis C Screening 1977 Cervical Cancer Screening 02/29/1980 Pap Smear 02/29/1980 HPV/Pap Cotest 1989 Breast Cancer Screening 1999 Cologuard 02/29/2004 Colon Cancer Screening 02/29/2004 Colonoscopy 02/29/2004 FIT 02/29/2004 Sigmoidoscopy 02/29/2004 Virtual Colonography 02/29/2004 Zoster (2 of 3) 01/07/2019 11/12/2018, 06/12/2018 COVID-19 Vaccine ( season) 2024 05/18/2022, 07/04/2021, 05/23/2021 Bone Density Screening 02/29/2024 Influenza Vaccine (Season Ended) 2025 06/27/2023, 03/30/2021, 04/13/2020, Additional history exists DTaP/TDaP/Td (2 - Td or Tdap) 12/26/2028 12/26/2018 Pneumococcal Vaccine 50+ Completed 08/17/2022, 10/03 Hepatitis B Vaccine Aged Out No longe r eligible based on patient's age to complete this topic Meningococcal B Vaccine Aged Out No l onger eligible based on patient's age to complete this topic Medical Devices Implanted Type Area Tractor Mechanic Device Identifier Shelf Expiration Date Model / Serial / Lot Knee/Ankle Hardware Loop Recorder Drug Dermatologic 2.5ml Syr Adlt Macroplastique - [id number] Implanted:Qty: 1 on 09/06/2023 by Diana Burkett MD at [facility] N/A: Ureth[employer] 10/29/2024 MPQ-2.5 / / [id number] Drug Dermatologic 2.5ml Syr Adlt Macroplastique - [id number] Implanted:Qty: 1 on 09/06/2023 by Diana Burkett MD at [facility] N/A: Ureth[employer] 11/29/2024 MPQ-2.5 / / [id number] Insurance [employer] MEDICARE PPO [place] Member Subscriber Plan / Payer (Ef fective 2023-Present) Name:Betty Thrasher Relation to Subscriber:Self Name:Betty Thrasher Payer ID:Not on file Group ID:Not on file Type:Not on file Address: [address] [place] [id number] [facility] MEDICARE O MEDICAID [place] Care Teams Supervisor [employer] Plants Relationship Specialty Start Date End Date Devan Lundberg NP [address] [place], [place] [phone] PCP - General Nurse Practitioner-Family 08/09/23
--- OUTSIDE RECORDS SUMMARY | 2024-11-10 09:30 | XMS_ITS | Encounter Summary ---
Author Organization [facility] Address [address] [place] [address] Care Team Providers Care Director Operations Broadcast Name Role Phone Lulu Noyola Primary Care Provider [phone] Giacomo Pereira MD Unavailable Eulalia Purvis Unavailable [phone] Pam Fay RN Unavailable [phone] Encounter Details Date Type Department Care Team (Late st Contact Info) Description 02/11/2019 [facility] Encounter Historical OTTR [address] [place] [address] ProviderArely MD [address] [place], [place] [id number] Social History Tobacco Use Types Packs/Day Years Used Date Smoking Tobacco: Never Assessed Comments Unknown Sex and Gender Information Value Date Recorded Sex Assigned at Not on file Legal Sex Female 6:01 PM EDT Gender Identity Not on file Sexual Orientation Not on file documented as of this encounter Miscellaneous Notes * Progress Notes - ProviderArely MD - 02/11/2019 10:51 AM EDT DOS 03/12/2019 MRI Abdomen w wo contrast 72770 1. [employer] Medicare auth approved auth # [id number] valid dates 03/12/2019-04/12/2019 documented in this encounter Plan of Treatment Upcoming Encounters Date Type Department Care Team (Late st Contact Info) Description 01/06/2025 2:30 PM EDT Office Visit [facility] [address], [address] [place] [address] Dwayne Adame MD [address] [place] [address] documented as of this encounter Visit Diagnoses Not on filedocumented in this encounter Care Teams Director Operations Broadcast Relationship Specialty Start Date End Date Lulu Noyola PA [address] [facility] [place] [address] PCP - General 10/15/20 Giacomo Pereira MD [address] [place] [address] Transplant Physician Transplant Surgery 10/24/20 [place] [address] Surgical Navigator Transplant 10/24/20 Pam Fay, RN [facility] [address] [place] [address] Surgical Navigator Transplant Surgery 01/13/21 documented as of this encounter
[2024-11-10 10:01] LABS: Basophils % 0.5 % (0.1-2.0); Eosinophils % 0.5 % (0.1-12.0); Hematocrit 45.5 % (37.0-47.0); Hemoglobin 14.6 g/dL (12.2-16.2); Immature Granulocytes # 0.01 10^3uL; Immature Granulocytes % 0.2 %; Lymphocytes # 1.4 K/mm3 (0.7-4.5); Lymphocytes % 33.7 % (10-50); Mean Corpuscular HGB Conc 32.1 g/dL (31.8-35.4); Mean Corpuscular Hemoglobin 29.1 pg (27.0-31.2); Mean Corpuscular Volume 90.8 fl (81-99); Mean Platelet Volume 11.5 fl (7.4-10.4); Monocytes # 0.4 K/mm3 (0.1-1.0); Monocytes % 8.8 % (1.7-9.3); Neutrophils # 2.3 K/mm3 (1.8-7.8); Neutrophils % 56.3 % (37.0-80.0); Nucleated Red Blood Cells # 0 10^3/uL; Nucleated Red Blood Cells % 0 %; Platelet Count 212 K/mm3 (142-424); Red Blood Count 5.01 M/mm3 (4.20-5.40); Red Cell Distribution Width 12.7 % (11.5-17.5); Red Cell Distribution Width-SD 42.1 fL; White Blood Count 4.1 K/mm3 (4.8-10.8)
[2024-11-10 10:29] LABS: Alanine Aminotransferase 20 U/L (12-78); Albumin Level 4.3 g/dl (3.5-5.0); Alkaline Phosphatase 63 U/L (38-126); Anion Gap 12.5 mEq/L (5-15); Aspartate Amino Transferase 34 U/L (14-36); Bilirubin,Direct 0.3 mg/dl (0.0-0.4); Bilirubin,Indirect 0.4 mg/dL (0.0-0.9); Bilirubin,Total 0.7 mg/dl (0.2-1.3); Bilirubin,Unconjugated 0.4 mg/dL (0.0-1.1); Blood Urea Nitrogen 11 mg/dl (7-17); Calcium 9.4 mg/dl (8.4-10.2); Carbon Dioxide 29 mmol/L (22.0-30.0); Chloride 102 mmol/L (98-107); Chol/HDL Ratio 2.1 (1-3.5); Cholesterol 171 mg/dl (140-200); Estimated Glomerular Filt Rate 63 ml/min (>60); GFR (African American) 76 ML/MIN (>60); Glucose 92 mg/dl (74-100); HDL Cholesterol 82 mg/dl (40-60); Potassium 3.5 mmoL/L (3.5-5.1); Sodium 140 mmol/L (136-145); Total Protein,Serum 6.9 g/dl (6.3-8.2); Triglycerides 138 mg/dl (30-150); VLDL Cholesterol 28 mg/dL (0-40)
[2024-11-10 10:40] LABS: Direct LDL Cholesterol 49.34 mg/dL (100-129)
[2024-11-10 10:44] LABS: Free T4 (Free Thyroxine) 1.38 ng/dl (0.78-2.19)
[2024-11-10 11:03] LABS: Thyroid Stimulating Hormone 0.28 uIU/mL (0.465-4.68)
== END 2024-11-10 23:59 | disposition home or self-care (01) ==
LOC: LAB 09:26
PROVIDERS: PCP Nurse Practitioner Family; Visit Provider Nurse Practitioner
DX: E05.90 Thyrotoxicosis, unspecified without thyrotoxic crisis or storm (principal); I10 Essential (primary) hypertension; I25.118 Atherosclerotic heart disease of native coronary artery with other forms of angina pectoris
CPT/HCPCS: 36415; 80048; 80061; 80076; 83735; 84439; 84443; 85025

== ENCOUNTER 2024-11-18 10:18 | Emergency (ER) | payer MEDICARE, MEDICAID, SELFPAY ==
[2024-11-18] VITALS (8 sets, daily range): BP systolic 118–142; BP diastolic 70–92; PULSE 45–59; RESP 8–19; TEMP 36.6–37.1; O2SAT 92–100; BMI 14.7
--- NOTE | 2024-11-18 10:19 | ED_ITS ---
<Statement entered by Nasreen Blakely DO - 11/18/24 15:14> I was consulted by the AMANDO, and we discussed the complexity of the problems being addressed. I approved the treatment and management plan for this patient's care in the emergency department, thus performing a substantive portion of the medical decision making. Nasreen Blakely DO Discharge Plan Disposition Patient Disposition: Home, Self-Care Condition: Fair Prescriptions Prescriptions: No Action nadolol 20 mg tablet 10 mg PO DAILY Qty: 30 3RF aspirin 81 mg tablet,delayed release (DR/EC) 81 mg PO DAILY Qty: 90 3RF budesonide-formoterol [Symbicort] 160-4.5 mcg/actuation HFA aerosol inhaler 1 puff inhalation BID 90 Days Qty: 10.2 2RF lorazepam 0.5 mg tablet 0.5 mg PO DAILY PRN (Reason: anxiety) Qty: 30 2RF Linzess 72 mcg capsule See Rx Instructions .ROUTE .COMPLEX Qty: 90 2RF Dose Instruction: TAKE ONE CAPSULE BY MOUTH EVERY DAY Rx Instructions: TAKE ONE CAPSULE BY MOUTH EVERY DAY topiramate 50 mg tablet See Rx Instructions .ROUTE .COMPLEX Qty: 60 3RF Dose Instruction: TAKE ONE TABLET BY MOUTH TWICE DAILY Rx Instructions: TAKE ONE TABLET BY MOUTH TWICE DAILY estradiol 1 mg tablet See Rx Instructions .ROUTE .COMPLEX Qty: 90 2RF Dose Instruction: TAKE ONE TABLET BY MOUTH EVERY DAY FOR HORMONE REPLACEMENT Rx Instructions: TAKE ONE TABLET BY MOUTH EVERY DAY FOR HORMONE REPLACEMENT rosuvastatin 10 mg tablet See Rx Instructions .ROUTE .COMPLEX Qty: 90 2RF Dose Instruction: TAKE ONE TABLET BY MOUTH EVERY DAY AT BEDTIME Rx Instructions: TAKE ONE TABLET BY MOUTH EVERY DAY AT BEDTIME fluticasone propionate 50 mcg/actuation spray,suspension See Rx Instructions .ROUTE .COMPLEX Qty: 16 3RF Dose Instruction: INSTILL 2 SPRAYS IN EACH NOSTRIL EVERY DAY Rx Instructions: INSTILL 2 SPRAYS IN EACH NOSTRIL EVERY DAY levothyroxine 50 mcg tablet See Rx Instructions .ROUTE .COMPLEX Qty: 30 2RF Dose Instruction: TAKE ONE TABLET BY MOUTH EVERY DAY Rx Instructions: TAKE ONE TABLET BY MOUTH EVERY DAY hydrocodone-acetaminophen 5-325 mg tablet 1 tab PO DAILY PRN (Reason: pain) 30 Days Qty: 30 0RF Referrals Follow up/Referrals: Provider,Referral, MD [Primary Care Provider, Medical] - See instructions Activity Restrictions/Add. Instructions Additional Instructions/Restrictions: As we discussed please discontinue her beta-eugenia as cardiology recommended. Please follow-up with cardiology within 48 hours. If you have any new or worsening signs or symptoms follow-up sooner or return to the ER as needed. Clinical Impressions Clinical Impression: Symptomatic sinus bradycardia, Hypokalemia Chest pain Qualifiers: Chest pain type: unspecified Qualified Code(s): R07.9 - Chest pain, unspecified Print Language Print Language: Uzbek Discharge ED Provider: Nasreen Blakely General Adult HPI <MARK Watkins - Last Filed: 11/18/24 15:04> General Chief complaint: Chest Pain Stated complaint: Chest Pain Time Seen by Provider: 11/18/24 10:19 History of Present Illness HPI narrative: Patient presents from cardiology clinic for evaluation of chest pain. Patient states that she has had left-sided chest pain since 03 November. Patient believes it is related to her implantable loop recorder and MRI however she received on that date. Patient states that it is been present continuously ever since. Patient also reports feeling lightheaded short of breath but denies of fever chills hemoptysis hematochezia melena nausea vomiting diarrhea. Patient was seen in the cardiology clinic today after being started back on a beta-eugenia last week. She was noted to be hypotensive in clinic and ultimately sent to the ER for further evaluation. Related Data Previous Rx's ?Medication ?Instructions ?Recorded aspirin 81 mg tablet,delayed 81 mg PO DAILY heart heal th #90 05/07/23 release tabs budesonide-formoterol HFA 160 1 puff inhalation BID 90 days 03/04/24 mcg-4.5 mcg/actuation aerosol #10.2 grams inhaler (Symbicort) linaclotide 72 mcg capsule See Rx Instructions .Route 03/31/24 (Linzess) .COMPLEX #90 caps topiramate 50 mg tablet See Rx Instructions .Route 0 07/22/24 .COMPLEX #60 tabs estradiol 1 mg tablet See Rx Instructions .Route 0 09/02/24 .COMPLEX #90 tabs rosuvastatin 10 mg tablet See Rx Instructions .Route 0 09/09/24 .COMPLEX #90 tabs lorazepam 0.5 mg tablet 0.5 mg PO DAILY PRN anxiety #30 10/07/24 tabs fluticasone propionate 50 See Rx Instructions .Route 0 10/29/24 mcg/actuation nasal .COMPLEX #16 grams spray,suspension levothyroxine 50 mcg tablet See Rx Instructions .Route 11/03/24 .COMPLEX #30 tabs hydrocodone 5 mg-acetaminophen 325 1 tab PO DAILY PRN pain 30 days 11/05/24 mg tablet #30 tabs nadolol 20 mg tablet 10 mg (1/2 x 20 mg) PO DAILY #30 11/10/24 tabs Allergies Allergy/AdvReac Type Severity Reaction Status Date / Time rizatriptan Allergy Severe Anaphylaxis Verified 11/18/24 09:48 captopril Allergy Mild Hives Verified 11/18/24 09:48 vibegron (From Gemtesa) Allergy Rash Verified 11/18/24 09:48 [facility] <MARK Watkins - Last Filed: 11/18/24 15:04> [facility] Disclaimer: The information contained in this section may have been updated after the patient was seen, as this information can be updated by other users. Medical History Implantable loop recorder present Asthma Encounter for loop recorder at end of battery life Bilateral hearing loss Allergic rhinitis Dyspnea on exertion Multiple lung nodules on CT History of COPD History of asthma Erosion of vaginal mesh Incontinence in female Urinary urgency ABRAM (stress urinary incontinence, female) Postmenopausal atrophic vaginitis Dysphagia Frequent headaches Pulmonary nodules Hoarseness Angina pectoris Fatigue Edema of both lower extremities Numbness of tongue Dizziness Abnormal electrocardiogram [ECG] [EKG] Tachycardia Sepsis Osteopenia Anemia Chronic pain disorder Dyspnea Family history of colon cancer Lumbar disc disease with radiculopathy Primary osteoarthritis of both feet Acquired equinus deformity of both feet Lumbar disc disease with radiculopathy Migraine headache Constipation Daytime somnolence Snoring Restless sleeper Paroxysmal SVT (supraventricular tachycardia) Liver lesion 3. There are several enhancing lesions of the liver. Differential diagnosis would include enhancing metastatic foci or multifocal hepatocellular carcinoma. These lesions are not typical for hemangiomas with the enhancement being central and focal as opposed to the peripheral enhancement. Hepatic carcinoid is also included in the differential diagnosis. Suggest outpatient CT of the liver without and with contrast with three-phase post enhancement images Lumbar disc disease with radiculopathy Hormone replacement therapy (HRT) Syncope Depression Hypothyroidism GERD (gastroesophageal reflux disease) Anxiety Surgical History History of thyroidectomy History of cholecystectomy Hx of appendectomy H/O: hysterectomy S/P cubital tunnel release History of resection of rib History of surgery on lower extremity Family History Other Asthma Cancer Diabetes Hyperlipidemia Hypertension Stroke Thyroid disorder Tuberculosis Social History Smoking Status: Former smoker second hand exposure: No alcohol intake: never substance use type: denies use current occupational status: other Travel in the last 8 weeks?: None household members: spouse housing: house current occupational exposures/hazards: No caffeine: Yes Other Medical History Have you received the Flu Vaccine for this season: No Have you received the Pneumonia Vaccine: No <MARK Watkins - Last Filed: 11/18/24 15:04> ROS Obtained: Yes Systems reviewed as appropriate & no additional complaints except as documented Physical Exam <MARK Watkins - Last Filed: 11/18/24 15:04> General General appearance: alert and in no apparent distress Respiratory Respiratory exam: Present normal lung sounds bilaterally Cardiovascular Cardiovascular exam: Present regular rate, normal rhythm and +S1 Neurological Exam Neurological exam: Present alert and oriented X3 Medical Decision Making <MARK Watkins - Last Filed: 11/18/24 15:04> Medical Records Medical records reviewed: Yes I reviewed the patient's medical records. Screening: Per USPSTF and CDC recommendations, given the prevalence of disease in our region, it is our hospital?s policy to screen for HIV and viral Hepatitis for all patients aged 18 and over and those with ongoing risk factors. Daniele Inquiry Pt receiving controlled substance: No Vital Signs: 11/18/24 10:23 11/18/24 10:33 11/18/24 10:34 Temperature 98 F Temperature Source Oral Pulse Rate 57 L 49 L Pulse Rate [Right Brachial] 59 L Respiratory Rate 16 19 18 Blood Pressure 118/79 Blood Pressure [Right Arm] 142/92 H Blood Pressure Mean 91 Blood Pressure Mean [Right Arm] 108 Blood Pressure Source Blood Pressure Source [Right Arm] Automatic Cuff Blood Pressure Position 02 Sat by Pulse Oximetry 100 99 99 Oxygen Delivery Method Room Air Room Air 11/18/24 11:15 11/18/24 11:30 11/18/24 12:00 Temperature Temperature Source Pulse Rate 54 L 45 L 51 L Pulse Rate [Right Brachial] Respiratory Rate 12 12 8 L Blood Pressure 131/70 122/72 Blood Pressure [Right Arm] Blood Pressure Mean 90 91 Blood Pressure Mean [Right Arm] Blood Pressure Source Blood Pressure Source [Right Arm] Blood Pressure Position 02 Sat by Pulse Oximetry 92 L 100 100 Oxygen Delivery Method Room Air Room Air 11/18/24 12:30 11/18/24 12:43 Temperature 98.7 F Temperature Source Oral Pulse Rate 48 L 47 L Pulse Rate [Right Brachial] Respiratory Rate 10 L 18 Blood Pressure 119/70 119/70 Blood Pressure [Right Arm] Blood Pressure Mean 87 Blood Pressure Mean [Right Arm] Blood Pressure Source Automatic Cuff Blood Pressure Source [Right Arm] Blood Pressure Position Supine 02 Sat by Pulse Oximetry 99 Oxygen Delivery Method Room Air Lab Data Lab results reviewed: Yes I reviewed the patient's lab results. Lab Results 11/18/24 10:30: D-Dimer 0.87 H, Sodium 135 L, Potassium 3.1 L, Chloride 97 L, C arbon Dioxide 33 H, Anion Gap 8.1, BUN 14, Creatinine 0.90, Estimated Creat Clear 35, Estimated GFR 63, Est GFR ( Amer) 76, Glucose 121 H, Calcium 9.7, Phosphorus 3.4, Magnesium 2.1, Total Bilirubin 0.7, AST 44 H, ALT 22, Alkaline Phosphatase 53, Troponin I < 0.01, NT-Pro-B Natriuret Pep 131 H, Total Protein 7.1, Albumin 4.2, Globulin 2.9, Albumin/Globulin Ratio 1.4, TSH 0.57, F ree T4 Index 3.2 L, Thyroxine (T4) 10.9, T3 Uptake 29 11/18/24 11:02: WBC 4.4 L, RBC 4.24, Hgb 13.0, Hct 37.9, MCV 89.4, MCH 30.7, MCHC 34.3, RDW 12.5, Plt Count 152, MPV 12.0 H, Neut % (Auto) 59.3, Lymph % (Auto) 30.5, Sibley % (Auto) 9.3, Eos % (Auto) 0.2, Baso % (Auto) 0.5, Neut # (Auto) 2.6, Lymph # (Auto) 1.4, Sibley # (Auto) 0.4, Eos # (Auto) 0.0, Baso # (Auto) 0.0 11/18/24 11:05: VBG pH 7.43 H, VBG pCO2 42.0, VBG pO2 31.3, VBG HCO3 27.5, VBG Total CO2 28.8 H, VBG O2 Saturation 61.9, VBG Base Excess 3.3 H, VBG Lactic Acid 1.7 11/18/24 11:02 11/18/24 10:30 Orders (Tests/Meds): ED MEDICATIONS Discontinued Medications Generic Name Dose Route Start Last Admin Trade Name Freq PRN Reason Stop Dose Admin Acetaminophen 1,000 mg 11/18/24 10:44 11/18/24 10:51 Acetaminophen 500mg Tab PO 11/18/24 10:45 1,000 mg ONCE ONE Administration Sodium Chloride 1,000 mls @ 999 mls/hr 11/18/24 10:44 11/18/24 10:51 Sod Chlor 0.9% 1000ml Bag IV 11/18/24 11:44 999 mls/hr .Q1H1M ONE Administration Ketorolac Tromethamine 15 mg 11/18/24 10:44 11/18/24 10:51 Ketorolac 30mg/Ml Vial IV 11/18/24 10:45 15 mg ONCE ONE Administration Potassium Chloride 60 meq 11/18/24 11:10 11/18/24 11:12 Potassium Chloride 20meq Tab PO 11/18/24 11:11 60 meq ONCE ONE Administration ORDERS Category Date Time Status Chest XR 2 view (NOT portable) [XR chest 2V] Stat Exams 11/18/24 10:44 Completed BNP [NT Pro Brain Natriuretic Pep.] Stat Lab 11/18/24 10:30 Completed CBC w/Auto Diff [Complete Blood Count Auto Diff] Stat Lab 11/18/24 11:02 Completed CMP [Comprehensive Metabolic Panel] Stat Lab 11/18/24 10:30 Completed D-Dimer Stat Lab 11/18/24 10:30 Completed Magnesium Stat Lab 11/18/24 10:30 Completed PHOS [Phosphorous] Stat Lab 11/18/24 10:30 Completed Thyroid Panel Stat Lab 11/18/24 10:30 Completed Trop I [Troponin I] Stat Lab 11/18/24 10:30 Completed VBG [Venous Blood Gas] Stat RT 11/18/24 11:05 Completed Medical Decision Narrative: In summary patient is a 64-year-old female who presents to the emergency department for evaluation of chest pain and low blood pressure. Patient is normotensive here initially with a blood pressure of 142/92 bradycardic at 59 with sinus bradycardia in the bedside monitor however she was 93 systolic on arrival to the cardiology clinic, breathing 16 times a minute satting 100% on room on air upon arrival, afebrile at 98. Physical exam is remarkable for a cachectic appearing, with a BMI of 14, 64-year-old female who otherwise is in no acute distress. Breath sounds clear equal bilaterally to the bases without adventitious sounds cardiovascular is S1 is 2 slow but regular rate and rhythm without murmurs gallops rubs or thrills, there is no dependent edema noted, abdomen soft nontender no rebound guarding rigidity.. Differential diagnosis includes symptomatic bradycardia versus iatrogenically caused bradycardia due to beta-blockade versus ACS versus PE etc. Initial workup will be conducted with hematologic labs twelve-lead EKG plain film chest x-ray. Initial interventions include crystalloid bolus Toradol Tylenol. Initial workup reviewed by me shows that her hematologic labs are significant for slight low potassium at 3.1 which will be repleted and the remainder of her hematologic labs are nonactionable including a normal troponin that is undetectable. Twelve-lead EKG shows sinus bradycardia with no evidence of ACS, and my informal interpretation of her plain film chest x-ray shows no acute processes prior to radiology read. Please see final read for formal interpretation.. Upon repeat evaluation patient's blood pressure has remained above 100 systolic at the time my exam was 119/70 the patient remains bradycardic in the 40s and 50s.. Given this I had indirect discussion regarding her MOLINA and findings and I have recommended patient discontinue beta-blockade until seen by cardiology. 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 If she has any persistent new or worsening signs or symptoms she can return to the ER as needed. Patient had resolution of her chest pain while in the emergency department. <Nasreen Blakely, DO - Last Filed: 11/18/24 10:56> Vital Signs: 11/18/24 10:23 11/18/24 10:33 11/18/24 10:34 Temperature 98 F Temperature Source Oral Pulse Rate 57 L 49 L Pulse Rate [Right Brachial] 59 L Respiratory Rate 16 19 18 Blood Pressure 118/79 Blood Pressure [Right Arm] 142/92 H Blood Pressure Mean 91 Blood Pressure Mean [Right Arm] 108 Blood Pressure Source Blood Pressure Source [Right Arm] Automatic Cuff Blood Pressure Position 02 Sat by Pulse Oximetry 100 99 99 Oxygen Delivery Method Room Air Room Air 11/18/24 11:15 11/18/24 11:30 11/18/24 12:00 Temperature Temperature Source Pulse Rate 54 L 45 L 51 L Pulse Rate [Right Brachial] Respiratory Rate 12 12 8 L Blood Pressure 131/70 122/72 Blood Pressure [Right Arm] Blood Pressure Mean 90 91 Blood Pressure Mean [Right Arm] Blood Pressure Source Blood Pressure Source [Right Arm] Blood Pressure Position 02 Sat by Pulse Oximetry 92 L 100 100 Oxygen Delivery Method Room Air Room Air 11/18/24 12:30 11/18/24 12:43 Temperature 98.7 F Temperature Source Oral Pulse Rate 48 L 47 L Pulse Rate [Right Brachial] Respiratory Rate 10 L 18 Blood Pressure 119/70 119/70 Blood Pressure [Right Arm] Blood Pressure Mean 87 Blood Pressure Mean [Right Arm] Blood Pressure Source Automatic Cuff Blood Pressure Source [Right Arm] Blood Pressure Position Supine 02 Sat by Pulse Oximetry 99 Oxygen Delivery Method Room Air Lab Data Lab Results 11/18/24 10:30: D-Dimer 0.87 H, Sodium 135 L, Potassium 3.1 L, Chloride 97 L, C arbon Dioxide 33 H, Anion Gap 8.1, BUN 14, Creatinine 0.90, Estimated Creat Clear 35, Estimated GFR 63, Est GFR ( Amer) 76, Glucose 121 H, Calcium 9.7, Phosphorus 3.4, Magnesium 2.1, Total Bilirubin 0.7, AST 44 H, ALT 22, Alkaline Phosphatase 53, Troponin I < 0.01, NT-Pro-B Natriuret Pep 131 H, Total Protein 7.1, Albumin 4.2, Globulin 2.9, Albumin/Globulin Ratio 1.4, TSH 0.57, F ree T4 Index 3.2 L, Thyroxine (T4) 10.9, T3 Uptake 29 11/18/24 11:02: WBC 4.4 L, RBC 4.24, Hgb 13.0, Hct 37.9, MCV 89.4, MCH 30.7, MCHC 34.3, RDW 12.5, Plt Count 152, MPV 12.0 H, Neut % (Auto) 59.3, Lymph % (Auto) 30.5, Sibley % (Auto) 9.3, Eos % (Auto) 0.2, Baso % (Auto) 0.5, Neut # (Auto) 2.6, Lymph # (Auto) 1.4, Sibley # (Auto) 0.4, Eos # (Auto) 0.0, Baso # (Auto) 0.0 11/18/24 11:05: VBG pH 7.43 H, VBG pCO2 42.0, VBG pO2 31.3, VBG HCO3 27.5, VBG Total CO2 28.8 H, VBG O2 Saturation 61.9, VBG Base Excess 3.3 H, VBG Lactic Acid 1.7 Orders (Tests/Meds): ED MEDICATIONS Discontinued Medications Generic Name Dose Route Start Last Admin Trade Name Freq PRN Reason Stop Dose Admin Acetaminophen 1,000 mg 11/18/24 10:44 11/18/24 10:51 Acetaminophen 500mg Tab PO 11/18/24 10:45 1,000 mg ONCE ONE Administration Sodium Chloride 1,000 mls @ 999 mls/hr 11/18/24 10:44 11/18/24 10:51 Sod Chlor 0.9% 1000ml Bag IV 11/18/24 11:44 999 mls/hr .Q1H1M ONE Administration Ketorolac Tromethamine 15 mg 11/18/24 10:44 11/18/24 10:51 Ketorolac 30mg/Ml Vial IV 11/18/24 10:45 15 mg ONCE ONE Administration Potassium Chloride 60 meq 11/18/24 11:10 11/18/24 11:12 Potassium Chloride 20meq Tab PO 11/18/24 11:11 60 meq ONCE ONE Administration ORDERS Category Date Time Status Chest XR 2 view (NOT portable) [XR chest 2V] Stat Exams 11/18/24 10:44 Completed BNP [NT Pro Brain Natriuretic Pep.] Stat Lab 11/18/24 10:30 Completed CBC w/Auto Diff [Complete Blood Count Auto Diff] Stat Lab 11/18/24 11:02 Completed CMP [Comprehensive Metabolic Panel] Stat Lab 11/18/24 10:30 Completed D-Dimer Stat Lab 11/18/24 10:30 Completed Magnesium Stat Lab 11/18/24 10:30 Completed PHOS [Phosphorous] Stat Lab 11/18/24 10:30 Completed Thyroid Panel Stat Lab 11/18/24 10:30 Completed Trop I [Troponin I] Stat Lab 11/18/24 10:30 Completed VBG [Venous Blood Gas] Stat RT 11/18/24 11:05 Completed ECG Data Tracing #1: I reviewed this ECG and interpreted as documented below: Sinus bradycardia with a ventricular to 54 bpm. Incomplete right bundle branch block. No acute ST changes concerning for ischemia. Normal intervals otherwise ECG initial impression date: 11/18/24 ECG initial impression time: 10:22 Critical Care <MARK Watkins - Last Filed: 11/18/24 15:04> Critical Care Time Critical Care Time: Yes Attestation: On 11/18/24, the high probability of a clinically significant, sudden or life threatening deterioration of the following system(s) required my full and direct attention, intervention and personal management. The time I documented below is in addition to time spent performing reported procedures but includes the following listed in this critical care notation. Total Time Total Critical Care Time: 30
--- NOTE | 2024-11-18 10:20 | ECG_ITS ---
APPROVED REPORT Exam: Resting ECG HR:54 bpm ECG Measurements Heart Rate 54 AXES PA 171 P 68 QRSd 102 QRS -58 QT 453 T 78 QTc 439 Conclusion SINUS BRADYCARDIA INCOMPLETE RIGHT BUNDLE BRANCH BLOCK [90+ ms QRS DURATION, TERMINAL R IN V1/V2, 40+ ms S IN I/aVL/V4/V5/V6] LEFT ANTERIOR FASCICULAR BLOCK [QRS AXIS <= -45, QR IN I, RS IN II] SEPTAL MYOCARDIAL INFARCTION , OF INDETERMINATE AGE [40+ ms Q WAVE IN V1/V2] No STEMI Electronically signed by : MASSIEL PULLIAM, 11/18/2024 15:20:53
--- OUTSIDE RECORDS SUMMARY | 2024-11-18 10:40 | XMS_ITS | Clinical Summary ---
Author Organization Healthcare Address [address] [place] [address] Care Team Providers Care Filter Changer Name Role Phone Lulu Noyola Primary Care Provider [phone] Giacomo Pereira MD Unavailable Eulalia Purvis Unavailable [phone] Pam Fay RN Unavailable [phone] Encounters Date Type Department Care Team Description 10/03/2024 Community Orders Community Practice [address] [place] [address] Lionel Correia MD Urinary incontinence, unspecified type [...] Description 01/06/2025 2:30 PM EDT Office Visit [facility] General Surgery [address] [place] [address] Dwayne Adame MD [address] [place] [address] Health Maintenance Due Date Last Done Comments [facility]-Bone Density Scan 1959 [facility]-Depression Screening 1959 [facility]-Hepatitis C Screening 1959 [facility]-Medicare Annual Wellness (AWV) 1959 [facility]-/Child/Adol SDOH Screenings 1959 [facility]-Obesity Intervention 1965 [facility]- SDOH Screenings 1977 [facility]-Adult SDOH Screenings 1977 CT Colonography 02/29/2004 Colonoscopy 02/29/2004 FIT-DNA 02/29/2004 FIT 02/29/2004 FOBT 02/29/2004 Sigmoidoscopy 02/29/2004 [facility]-Colorectal Cancer Screening 02/29/2004 [facility]-Breast Cancer Screening 2009 [facility]-Zoster Vaccines (2 of 3) 01/07/2019 11/12/2018, 06/12/2018 [id number] Vaccine (2023- season) 2024 02/12/2024, 05/18/2022, 07/04/2021, [...] [place] MEDICARE AETNA MEDICARE Care Teams Filter Changer Relationship Specialty Start Date End Date Lulu Noyola PA [address] [place] [address] PCP - General 10/15/20 Giacomo Pereira MD [address] [place] [address] [phone] Transplant Physician Transplant Surgery 10/24/20 [place] [address] Surgical Navigator Transplant 10/24/20 Pam Fay RN [facility] [address] [place] [id number] Surgical Navigator Transplant Surgery 01/13/21
--- OUTSIDE RECORDS SUMMARY | 2024-11-18 10:40 | XMS_ITS | Encounter Summary ---
Author Organization [facility] Address [address] [place] [address] Care Team Providers Care Cherry Pitter Name Role Phone Lulu Noyola Primary Care Provider [phone] Giacomo Pereira MD Unavailable Eulalia Purvis Unavailable [phone] Pam Fay RN Unavailable [phone] Encounter Details Date Type Department Care Team (Late st Contact Info) Description 03/12/2019 [facility] Encounter Historical OTTR [address] [place] [address] [place] [address] Social History Tobacco Use Types Packs/Day Years [...] Description 01/06/2025 2:30 PM EDT Office Visit [facility] General Surgery [address] [place] [address] Dwayne Adame MD [address] [place] [address] documented as of this encounter Visit Diagnoses Not on filedocumented in this encounter Care Teams Cherry Pitter Relationship Specialty Start Date End Date Lulu Noyola PA [address] [place] [address] PCP - General 10/15/20 Giacomo Pereira MD [address] [place] [address] Transplant Physician Transplant Surgery 10/24/20 [place] [address] Surgical Navigator Transplant 10/24/20 Pam Fay RN [facility] [address] [place] [id number] Surgical Navigator Transplant Surgery 01/13/21 documented as of this encounter
--- OUTSIDE RECORDS SUMMARY | 2024-11-18 10:40 | XMS_ITS | Encounter Summary ---
Author Organization [facility] Address [address] [place] [address] Care Team Providers Care Bmw Service Technician Name Role Phone Lulu Noyola Primary Care Provider [phone] Giacomo Pereira MD Unavailable Eulalia Purvis Unavailable [phone] Pam Fay RN Unavailable [phone] Encounter Details Date Type Department Care Team (Late st Contact Info) Description 03/14/2019 Legacy OTTR Encounter Historical OTTR [address] [place] [address] ProviderArely MD [address] [place], [place] [id number] Social History Tobacco Use Types Packs/Day Years [...] DOS 04/16/2019 MRI Abdomen w wo contrast 98588 1. [employer] Medicare auth approved auth # [id number] valid dates 04/16/2019-05/16/2019 updating IAuth and nurse. documented in this encounter Plan of Treatment Upcoming Encounters Date Type Department Care Team (Late st Contact Info) Description 01/06/2025 2:30 PM EDT Office Visit [place] [facility] [address], 1st [place] [address] Dwayne Adame MD [address] [facility] [address] [place] [address] documented as of this encounter Visit Diagnoses Not on filedocumented in this encounter Care Teams Bmw Service Technician Relationship Specialty Start Date End Date Lulu Noyola PA [address] [place] [address] PCP - General 10/15/20 Giacomo Pereira MD [address] [facility] [address] [place] [address] Transplant Physician Transplant Surgery 10/24/20 [place] [address] Surgical Navigator Transplant 10/24/20 Pam Fay RN [facility] [address] [place] [address] Surgical Navigator Transplant Surgery 01/13/21 documented as of this encounter
--- OUTSIDE RECORDS SUMMARY | 2024-11-18 10:40 | XMS_ITS | Encounter Summary ---
Author Organization [facility] Address [address] [place] [address] Care Team Providers Care Production Worker Name Role Phone Lulu Noyola Primary Care Provider [phone] Giacomo Pereira MD Unavailable Eulalia Purvis Unavailable [phone] Pam Fay RN Unavailable [phone] Encounter Details Date Type Department Care Team (Late st Contact Info) Description 03/13/2019 Legacy OTTR Encounter Historical OTTR [address] [place] [address] Cordelia Haynes [place] [id number] Social History Tobacco Use Types Packs/Day Years [...] - 03/13/2019 2:59 PM EDT LVM @ [phone] with 04/16/19 12:15 pm arrival time for labs/MBS/MRI requesting confirmation call. Appt schedule mailed. Note to for precert update on rescheduled MRI from 03/12/19. documented in this encounter Plan of Treatment Upcoming Encounters Date Type Department Care Team (Late st Contact Info) Description 01/06/2025 2:30 PM EDT Office Visit [facility] General Surgery [address], 1st [place] [address] Dwayne Adame MD [address] [facility] [address] [place] [address] documented as of this encounter Visit Diagnoses Not on filedocumented in this encounter Care Teams Production Worker Relationship Specialty Start Date End Date Lulu Noyola PA [address] [place] [address] PCP - General 10/15/20 Giacomo Pereira MD [address] [facility] [address] [place] [address] Transplant Physician Transplant Surgery 10/24/20 [place] [address] Surgical Navigator Transplant 10/24/20 Pam Fay RN [facility] [address] [place] [address] Surgical Navigator Transplant Surgery 01/13/21 documented as of this encounter
--- OUTSIDE RECORDS SUMMARY | 2024-11-18 10:40 | XMS_ITS | Encounter Summary ---
Author Organization [facility] Address [address] [place] [address] Care Team Providers Care Coater Name Role Phone Lulu Noyola Primary Care Provider [phone] Giacomo Pereira MD Unavailable Eulalia Purvis Unavailable [phone] Pam Fay RN Unavailable [phone] Encounter Details Date Type Department Care Team (Late st Contact Info) Description 11/26/2018 Legacy OTTR Encounter Historical OTTR [address] [place] [address] Cordelia Haynes [place] [id number] Social History Tobacco Use Types Packs/Day Years [...] Description 01/06/2025 2:30 PM EDT Office Visit [place] [facility] [address], 1st [place] [address] Dwayne Adame MD [address] [place] [address] documented as of this encounter Visit Diagnoses Not on filedocumented in this encounter Care Teams Coater Relationship Specialty Start Date End Date Lulu Noyola PA [address] [facility] [place] [address] PCP - General 10/15/20 Giacomo Pereira MD [address] [place] [address] Transplant Physician Transplant Surgery 10/24/20 [place] [address] Surgical Navigator Transplant 10/24/20 Pam Fay, RN [facility] [address] [place] [address] Surgical Navigator Transplant Surgery 01/13/21 documented as of this encounter
--- OUTSIDE RECORDS SUMMARY | 2024-11-18 10:40 | XMS_ITS | Encounter Summary ---
Author Organization [facility] Address [address] [place] [address] Care Team Providers Care Licensed Prosthetist Name Role Phone Lulu Noyola Primary Care Provider [phone] Giacomo Pereira MD Unavailable Eulalia Purvis Unavailable [phone] Pam Fay RN Unavailable [phone] Encounter Details Date Type Department Care Team (Late st Contact Info) Description 02/11/2019 Legacy OTTR Encounter Historical OTTR [address] [place] [address] ProviderArely MD [address] [place], [place] [id number] Social History Tobacco Use Types Packs/Day Years [...] DOS 03/12/2019 MRI Abdomen w wo contrast 29527 1. [employer] Medicare auth approved auth # [id number] valid dates 03/12/2019-04/12/2019 documented in this encounter Plan of Treatment Upcoming Encounters Date Type Department Care Team (Late st Contact Info) Description 01/06/2025 2:30 PM EDT Office Visit [place] [facility] Surgery [address], 1st [place] [address] Dwayne Adame MD [address] [place] [address] documented as of this encounter Visit Diagnoses Not on filedocumented in this encounter Care Teams Licensed Prosthetist Relationship Specialty Start Date End Date Lulu Noyola PA [address] [place] [address] PCP - General 10/15/20 Giacomo Pereira MD [address] [place] [address] Transplant Physician Transplant Surgery 10/24/20 [place] [address] Surgical Navigator Transplant 10/24/20 Pam Fay, RN [facility] [address] [place] [address] Surgical Navigator Transplant Surgery 01/13/21 documented as of this encounter
--- OUTSIDE RECORDS SUMMARY | 2024-11-18 10:40 | XMS_ITS | Encounter Summary ---
Author Organization [facility] Address [address] [place] [address] Care Team Providers Care Metal Loader Name Role Phone Lulu Noyola Primary Care Provider [phone] Giacomo Pereira MD Unavailable Eulalia Purvis Unavailable [phone] Pam Fay RN Unavailable [phone] Encounter Details Date Type Department Care Team (Late st Contact Info) Description 03/24/2019 Legacy OTTR Encounter Historical OTTR [address] [place] [address] Cordelia Haynes [place] [id number] Social History Tobacco Use Types Packs/Day Years [...] - 03/24/2019 1:28 PM EDT LVChirag @ [phone] with 04/16/19 12:15 pm arrival time for labs/MBS/MRI requesting confirmation call. documented in this encounter Plan of Treatment Upcoming Encounters Date Type Department Care Team (Late st Contact Info) Description 01/06/2025 2:30 PM EDT Office Visit [facility] General Surgery [address], 1st [place] [address] Dwayne Adame MD [address] [place] [address] documented as of this encounter Visit Diagnoses Not on filedocumented in this encounter Care Teams Metal Loader Relationship Specialty Start Date End Date Lulu Noyola PA [address] [facility] [place] [id number] PCP - General 10/15/20 Giacomo Pereira MD [address] [place] [address] Transplant Physician Transplant Surgery 10/24/20 [place] [address] Surgical Navigator Transplant 10/24/20 Pam Fay RN [facility] [address] [place] [address] Surgical Navigator Transplant Surgery 01/13/21 documented as of this encounter
--- OUTSIDE RECORDS SUMMARY | 2024-11-18 10:40 | XMS_ITS | Encounter Summary ---
Author Organization [facility] Address [address] [place] [id number] Care Team Providers Care Agricultural Engineering Teacher Name Role Phone Lulu Noyola Primary Care Provider [phone] Giacomo Pereira MD Unavailable Eulalia Purvis Unavailable [phone] Pam Fay RN Unavailable [phone] Encounter Details Date Type Department Care Team (Late st Contact Info) Description 03/18/2018 Legacy OTTR Encounter Historical OTTR [address] [place] [address] Pam Fay, RN [facility] [address] [place] [address] Social History Tobacco Use Types Packs/Day Years [...] hours. Auth can be obtained by calling [phone] ref # [id number]. * Progress Notes - Pam Fay RN [...] lesions. Pt. needs MRI liver protocol at [facility], should not be performed elsewhere and [...] appt. reminder. Note to for [place] precert [id number]. * Progress Notes - Pam Fay RN [...] 2:44 PM EDT Radiology reports received from [facility] - saved in AllDo. * Progress Notes - Enriqueta Villarreal - 01/16/2018 9:59 AM EDT CD images received from [facility] - downloaded to PACS. * Progress Notes [...] EDT Faxed request for cd images to [facility] for fedex priority shipping. Records received fromChaitanya Rose's office - saved in AllDocs. * Progress Notes - Enriqueta Villarreal E - 01/14/2018 3:32 PM EDT Surgical referral from Mitzy Rose to [facility] - 57 yo woman with multiple liver lesions. Called referring office - spoke to Luana, requested records - Luana will fax these tomorrow when she has the chart. Ms Thrasher was seen by Chaitanya Rose at the specialty clinic in [place] - that clinic does not have any records. Note to HEW/CNT documented in this encounter Plan of Treatment Upcoming Encounters Date Type Department Care Team (Late st Contact Info) Description 01/06/2025 2:30 PM EDT Office Visit [facility] General Surgery [address], 1st [place] [address] Dwayne Adame MD [address] [place] [address] documented as of this encounter Procedures Procedure [...] on filedocumented in this encounter Care Teams Agricultural Engineering Teacher Relationship Specialty Start Date End Date Lulu Noyola PA [address] [place] [address] PCP - General 10/15/20 Giacomo Pereira MD [address] [facility] [address] [place] [address] Transplant Physician Transplant Surgery 10/24/20 [place] [address] Surgical Navigator Transplant 10/24/20 Pam Fay, RN [facility] [address] [place] [address] Surgical Navigator Transplant Surgery 01/13/21 documented as of this encounter
--- OUTSIDE RECORDS SUMMARY | 2024-11-18 10:40 | XMS_ITS | Encounter Summary ---
Author Organization [facility] Address [address] [place] [address] Care Team Providers Care Alarm Mechanism Adjuster Name Role Phone Lulu Noyola Primary Care Provider [phone] Giacomo Pereira MD Unavailable Eulalia Purvis Unavailable [phone] Pam Fay RN Unavailable [phone] Encounter Details Date Type Department Care Team (Latest Contact Info) Description 10/03/2024 Community [facility] Community Practice [address] [place] [address] Lionel Correia MD [address] [place] [address] Urinary incontinence, unspecified type (Primary [...] Description 01/06/2025 2:30 PM EDT Office Visit [place] [facility] [address], 1st [place] [address] Dwayne Adame MD [address] [place] [address] documented as of this encounter Visit Diagnoses Diagnosis Urinary incontinence, unspecified type- Primary Full incontinence of feces documented in this encounter Care Teams Alarm Mechanism Adjuster Relationship Specialty Start Date End Date Lulu Noyola PA [address] [place] [address] PCP - General 10/15/20 Giacomo Pereira MD [address] [place] [address] Transplant Physician Transplant Surgery 10/24/20 [place] [address] Surgical Navigator Transplant 10/24/20 Pam Fay RN [facility] [address] [place] [address] Surgical Navigator Transplant Surgery 01/13/21 documented as of this encounter
--- OUTSIDE RECORDS SUMMARY | 2024-11-18 10:40 | XMS_ITS | Clinical Summary ---
Author Organization [facility] Address [address] [place] [address] Phone Care Team Providers Care Air Conditioning Installer Supervisor Name Role Phone Devan Lundberg NP Primary Care Provider [phone] Allergies Active Allergy Reactions Criticality Noted Date [...] BROKE/REPAIR-HARDWARE CYSTOSCOPY 08/09/2023 Bladder/N/A .; Surgeon: Diana Burkett MD; Location: [facility] MAIN OR; Service: Gynecology URETHRA SURGERY 09/06/2023 N/A Cystoscopy, Urethral Bulking with Macroplastique; Surgeon: Diana Burkett MD; Location: [facility] MAIN OR; Service: Urogynecology Medical devices from this surgery are in the Medical Devices section. Medical History Medical History Date Comments Allergic rhinitis due to pollen Shortness of breath Hypertension Hyperlipidemia Angina pectoris EVERY ONCE IN A WHILE. NOT FOR A LONG TIME SEES CHANCELLOR. USUALLY HAPPENS WITH OVEREXERTION OR ANXIETY. LAST [...] this topic Medical Devices Implanted Type Area Sba Underwriter Device Identifier Shelf Expiration Date Model / Serial / Lot Knee/Ankle Hardware Loop Recorder Drug Dermatologic 2.5ml Syr Adlt Macroplastique - [id number] Implanted:Qty: 1 on 09/06/2023 by Diana Burkett MD at [facility] N/A: Urethra [employer] 10/29/2024 MPQ-2.5 / / [id number] Drug Dermatologic 2.5ml Syr Adlt Macroplastique - [id number] Implanted:Qty: 1 on 09/06/2023 by Diana Burkett MD at [facility] N/A: Urethra [employer] 11/29/2024 MPQ-2.5 / / [id number] Insurance [employer] MEDICARE PPO [place]ID [place] Member Subscriber Plan / Payer (Ef fective 2023-Present) Name:Betty Thrasher Relation to Subscriber:Self Name:Betty Thrasher Payer ID:Not on file Group ID:Not on file Type:Not on file Address: [address] [place] [id number] [facility] MEDICARE O MEDICAID [place] Care Teams Air Conditioning Installer Supervisor Relationship Specialty Start Date End Date Devan Lundberg NP [address] [place], [place] [id number] PCP - General Nurse Practitioner-Family 08/09/23
--- NOTE | 2024-11-18 10:44 | XR_ITS ---
FINAL REPORT TECHNIQUE: Chest PA & Lateral CLINICAL HISTORY: Left-sided chest pain for 2 weeks States mild chest pain, dizziness and falls COMPARISON: 10/11/2022 FINDINGS: 2 views of the chest were performed. The heart size is normal. The mediastinum is within normal limits. There is a loop recording device in the left hemithorax. The lungs are otherwise clear. There are no pleural effusions. There is no pneumothorax. The bony thorax appears intact. IMPRESSION: No acute cardiopulmonary process. Reviewed, Interpreted and Dictated by Dwayne Hubbard MD Transcribed by Liliya Siu Authenticated and [facility]
[2024-11-18] MEDS: 0.9 % SODIUM CHLORIDE 1000ML 1,000 ML 999 ML IV (10:51)
[2024-11-18] MEDS: ACETAMINOPHEN 500MG TAB 1000 MG PO (10:51)
[2024-11-18] MEDS: KETOROLAC 30MG/ML VIAL 15 MG IV (10:51)
--- NOTE | 2024-11-18 10:57 | PC.NURSE ---
I rounded on the pt. no new complaints at this time. I took her a warm blanket for comfort. no needs voiced. call meyer in reach.
[2024-11-18 11:00] LABS: Anion Gap 8.1 mEq/L (5-15); Blood Urea Nitrogen 14 mg/dl (7-17); Carbon Dioxide 33 mmol/L (22.0-30.0); Chloride 97 mmol/L (98-107); Potassium 3.1 mmoL/L (3.5-5.1); Sodium 135 mmol/L (136-145)
[2024-11-18 11:01] LABS: Alanine Aminotransferase 22 U/L (12-78); Albumin Level 4.2 g/dl (3.5-5.0); Albumin/Globulin Ratio 1.4 (1.1-1.8); Alkaline Phosphatase 53 U/L (38-126); Aspartate Amino Transferase 44 U/L (14-36); Bilirubin,Total 0.7 mg/dl (0.2-1.3); Calcium 9.7 mg/dl (8.4-10.2); Creatinine Clearance Estimated 35 mL/min (50-200); Estimated Glomerular Filt Rate 63 ml/min (>60); GFR (African American) 76 ML/MIN (>60); Globulin 2.9 g/dL (1.3-3.2); Glucose 121 mg/dl (74-100); Magnesium 2.1 mg/dl (1.6-2.3); Total Protein,Serum 7.1 g/dl (6.3-8.2)
[2024-11-18 11:09] LABS: NT Pro Brain Natriuretic Pep. 131 pg/mL (0-125)
[2024-11-18 11:11] LABS: Phosphorous 3.4 mg/dl (2.5-4.5)
[2024-11-18] MEDS: POTASSIUM CHLORIDE 20MEQ TAB 60 MEQ PO (11:12)
[2024-11-18 11:14] LABS: Basophils % 0.5 % (0.1-2.0); Eosinophils % 0.2 % (0.1-12.0); Hematocrit 37.9 % (37.0-47.0); Immature Granulocytes # 0.01 10^3uL; Immature Granulocytes % 0.2 %; Lymphocytes # 1.4 K/mm3 (0.7-4.5); Lymphocytes % 30.5 % (10-50); Mean Corpuscular HGB Conc 34.3 g/dL (31.8-35.4); Mean Corpuscular Hemoglobin 30.7 pg (27.0-31.2); Mean Corpuscular Volume 89.4 fl (81-99); Monocytes # 0.4 K/mm3 (0.1-1.0); Monocytes % 9.3 % (1.7-9.3); Neutrophils # 2.6 K/mm3 (1.8-7.8); Neutrophils % 59.3 % (37.0-80.0); Nucleated Red Blood Cells # 0 10^3/uL; Nucleated Red Blood Cells % 0 %; Platelet Count 152 K/mm3 (142-424); Red Blood Count 4.24 M/mm3 (4.20-5.40); Red Cell Distribution Width 12.5 % (11.5-17.5); Red Cell Distribution Width-SD 41.3 fL; White Blood Count 4.4 K/mm3 (4.8-10.8)
[2024-11-18 11:16] LABS: Lactate Venous 1.7 mmol/L (0.4-2.0); VBG Base Excess 3.3 mmol/L (-2.4-2.3); VBG HCO3 27.5 mmol/L (23-30); VBG Oxygen Saturation 61.9 % (50-70); VBG PH 7.43 mmol/L (7.31-7.41); VBG PO2 31.3 mmol/L (28-40); VBG Total CO2 28.8 mmol/L (23-27)
[2024-11-18 11:20] LABS: Triiodothryronine (T3) Uptake 29 % (23.5-40.5)
[2024-11-18 11:21] LABS: Free Thyroxine Index 3.2 ug/dL (5.93-13.13); T4 (Thyroxine) 10.9 ug/dl (5.53-11.0)
[2024-11-18 11:26] LABS: Troponin I < 0.01 ng/ml (0.00-0.034)
[2024-11-18 11:29] LABS: D-Dimer 0.87 ug/mL (0.0-0.5)
--- NOTE | 2024-11-18 11:30 | PC.NURSE ---
Let Dr Blakely know that pts preesure was good but heart rate was 45
[2024-11-18 11:34] LABS: Thyroid Stimulating Hormone 0.57 uIU/mL (0.465-4.68)
== END 2024-11-18 12:44 | disposition home or self-care (01) ==
PROVIDERS: Physician Assistant; Emergency Provider Emergency Medicine
DX: R07.89 Other chest pain (principal); R00.1 Bradycardia, unspecified; E87.6 Hypokalemia; Z87.891 Personal history of nicotine dependence
CPT/HCPCS: 71046; 80053; 82803; 83735; 83880; 84100; 84436; 84443; 84479; 84484; 85025; 85378; 93005; 96361; 96374; 99284; J1885; J7030

== ENCOUNTER 2024-11-25 10:19 | Day surgery (SDC) | payer MEDICARE, MEDICAID, SELFPAY ==
[2024-11-25 10:25] VITALS: BP 108/73; PULSE 88; RESP 18; O2SAT 96; BMI 14.6
[2024-11-25] MEDS: DEXAMETHASONE 10MG/ML 1ML VIAL 10 MG (10:41)
[2024-11-25] MEDS: LIDOCAINE 1% 5ML PF VIAL 5 ML (10:41)
[2024-11-25] MEDS: BUPIVACAINE 0.25% 10ML INJ 25 MG IJ (10:41)
[2024-11-25 10:46] VITALS: BP 108/73; PULSE 88; RESP 18; O2SAT 96
--- NOTE | 2024-11-25 10:46 | EXP.PAIN.PRO ---
Procedure Date: 11/25/24 Time: 10:30 Anesthesiologist:: Justus Sin CRNA Complications:: None Pre-procedure Diagnosis:: Chronic right knee pain. Status post right TKA. Post-procedure Diagnosis:: Same. Indications for Procedure:: Patient is a pleasant 64-year-old female comes our clinic today for a right infrapatellar nerve block. Patient continues having chronic right knee pain following right knee replacement. She rates her pain 7/10. Patient describes difficulty with ambulation due to right knee pain. She describes the pain constant, dull, aching. Procedure Details:: Details of the procedure explained to the patient. The patient taken procedure and placed in the sitting position. The over the right knee was cleaned using chlorhexidine as a cleansing solution. Using a 25-gauge inch and half needle the right infrapatellar branch of the saphenous nerve was accessed with ease. After negative aspiration 4 cc of 1% lidocaine +4 cc of 0.25% Marcaine and 10 mg of dexamethasone was injected incrementally. Patient tolerated procedure without difficulty. Dental complications. Plan and Disposition:: Patient was discharged without incident.
[2024-11-25 10:48] VITALS: BP 108/73; PULSE 88; RESP 18; O2SAT 96
[2024-11-25 10:53] VITALS: BP 99/71; PULSE 85; RESP 18; O2SAT 98
== END 2024-11-25 10:53 | disposition home or self-care (01) ==
PROVIDERS: Visit Provider Nurse Anesthetist, Certified Registered
DX: G89.29 Other chronic pain (principal); M25.561 Pain in right knee; Z96.651 Presence of right artificial knee joint; D64.9 Anemia, unspecified; F41.9 Anxiety disorder, unspecified; G89.4 Chronic pain syndrome; F32.A Depression, unspecified; K21.9 Gastro-esophageal reflux disease without esophagitis; J44.89 Other specified chronic obstructive pulmonary disease; Z85.850 Personal history of malignant neoplasm of thyroid; E03.9 Hypothyroidism, unspecified; Z87.891 Personal history of nicotine dependence; Z88.8 Allergy status to other drugs, medicaments and biological substances; Z79.82 Long term (current) use of aspirin; Z79.890 Hormone replacement therapy; Z79.899 Other long term (current) drug therapy
CPT/HCPCS: 64450; J0665; J1100; J2003

== ENCOUNTER 2024-12-08 09:51 | Outpatient (CLI) | payer MEDICARE, MEDICAID, SELFPAY ==
--- OUTSIDE RECORDS SUMMARY | 2024-12-08 10:03 | XMS_ITS | Encounter Summary ---
Author Organization [facility] Address [address] [place] [id number] Care Team Providers Care Structural Steel Trades Worker Name Role Phone Lulu Noyola Primary Care Provider [phone] Giacomo Pereira MD Unavailable Eulalia Purvis Unavailable [phone] Pam Fay RN Unavailable [phone] Encounter Details Date Type Department Care Team (Late Contact Info) Description 03/13/2019 Legacy OTTR Encounter Historical OTTR [address] [place] [address] [place] [address] Social History Tobacco Use Types Packs/Day Years [...] - 03/13/2019 2:59 PM EDT LVM @ [phone] with 04/16/19 12:15 pm arrival time for labs/MBS/MRI requesting confirmation call. Appt schedule mailed. Note to for precert update on rescheduled MRI from 03/12/19. documented in this encounter Plan of Treatment Upcoming Encounters Date Type Department Care Team (Late Contact Info) Description 12/30/2024 2:45 PM EDT Office Visit [facility] General Surgery [address], 1st [place] [address] Dwayne Adame MD [address] [place] [address] documented as of this encounter Visit Diagnoses Not on filedocumented in this encounter Care Teams Structural Steel Trades Worker Relationship Specialty Start Date End Date Lulu Noyola PA [address] [place] [address] PCP - General 10/15/20 Giacomo Pereira MD [address] [place] [address] Transplant Physician Transplant Surgery 10/24/20 [place] [address] Surgical Navigator Transplant 10/24/20 Pam Fay RN [facility] [address] [place] [address] Surgical Navigator Transplant Surgery 01/13/21 documented as of this encounter
--- OUTSIDE RECORDS SUMMARY | 2024-12-08 10:03 | XMS_ITS | Encounter Summary ---
Author Organization [facility] Address [address] [place] [address] Care Team Providers Care Fixing Machine Operator Name Role Phone Lulu Noyola Primary Care Provider [phone] Giacomo Pereira MD Unavailable Eulalia Purvis Unavailable [phone] Pam Fay RN Unavailable [phone] Encounter Details Date Type Department Care Team (Late st Contact Info) Description 02/11/2019 Legacy OTTR Encounter Historical OTTR [address] [place] [address] ProviderArely MD [address] [place] [address] Social History Tobacco Use Types Packs/Day Years [...] DOS 03/12/2019 MRI Abdomen w wo contrast 23935 1. Human Medicare auth approved auth # [id number] valid dates 03/12/2019-04/12/2019 documented in this encounter Plan of Treatment Upcoming Encounters Date Type Department Care Team (Late st Contact Info) Description 12/30/2024 2:45 PM EDT Office Visit [place] [facility] [address], 1st [place] [address] Dwayne Adame MD [address] [facility] [address] [place] [address] documented as of this encounter Visit Diagnoses Not on filedocumented in this encounter Care Teams Fixing Machine Operator Relationship Specialty Start Date End Date Lulu Noyola PA [address] [place] [address] PCP - General 10/15/20 Giacomo Pereira MD [address] [facility] [address] [place] [address] Transplant Physician Transplant Surgery 10/24/20 [place] [address] Surgical Navigator Transplant 10/24/20 Pam Fay RN [facility] [address] [place] [address] Surgical Navigator Transplant Surgery 01/13/21 documented as of this encounter
--- OUTSIDE RECORDS SUMMARY | 2024-12-08 10:03 | XMS_ITS | Encounter Summary ---
Author Organization [facility] Address [address] [place] [address] Care Team Providers Care Customer Associate Name Role Phone Lulu Noyola Primary Care Provider [phone] Giacomo Pereira MD Unavailable Eulalia Purvis Unavailable [phone] Pam Fay RN Unavailable [phone] Encounter Details Date Type Department Care Team (Latest Contact Info) Description 10/03/2024 Community [facility] Community Practice [address] [place] [address] Lionel Correia MD [address] [place] [address] [place], [place] [id number] Urinary incontinence, unspecified type (Primary Dx); Full [...] Description 12/30/2024 2:45 PM EDT Office Visit [place] [facility] Surgery [address], [address]st [place] [address] Dwayne Adame MD [address] [place] [address] documented as of this encounter Visit Diagnoses Diagnosis Urinary incontinence, unspecified type- Primary Full incontinence of feces documented in this encounter Care Teams Customer Associate Relationship Specialty Start Date End Date Lulu Noyola PA [address] [place] [address] PCP - General 10/15/20 Giacomo Pereira MD [address] [place] [address] Transplant Physician Transplant Surgery 10/24/20 [place] [address] Surgical Navigator Transplant 10/24/20 Pam Fay RN [facility] [address] [place] [address] Surgical Navigator Transplant Surgery 01/13/21 documented as of this encounter
--- OUTSIDE RECORDS SUMMARY | 2024-12-08 10:03 | XMS_ITS | Encounter Summary ---
Author Organization [facility] Address [address] [place] [address] Care Team Providers Care District Manager Major Accounts Sales Name Role Phone Lulu Noyola Primary Care Provider [phone] Giacomo Pereira MD Unavailable Eulalia Purvis Unavailable [phone] Pam Fay RN Unavailable [phone] Encounter Details Date Type Department Care Team (Late st Contact Info) Description 03/14/2019 Legacy OTTR Encounter Historical OTTR [address] [place] [address] ProviderArely MD [address] [place] [address] Social History Tobacco Use Types Packs/Day [...] DOS 04/16/2019 MRI Abdomen w wo contrast 41101 1. [facility] Medicare auth approved auth # [id number] valid dates 04/16/2019-05/16/2019 updating IAuth and nurse. documented in this encounter Plan of Treatment Upcoming Encounters Date Type Department Care Team (Late st Contact Info) Description 12/30/2024 2:45 PM EDT Office Visit [facility] General Surgery [address], [address] [place] [address] Dwayne Adame MD [address] [facility] [address] [place] [address] documented as of this encounter Visit Diagnoses Not on filedocumented in this encounter Care Teams District Manager Major Accounts Sales Relationship Specialty Start Date End Date Lulu Noyola PA [address] [place] [address] PCP - General 10/15/20 Giacomo Pereira MD [address] [facility] [address] [place] [address] Transplant Physician Transplant Surgery 10/24/20 [place] [address] Surgical Navigator Transplant 10/24/20 Pam Fay RN [facility] [address] [place] [address] Surgical Navigator Transplant Surgery 01/13/21 documented as of this encounter
--- OUTSIDE RECORDS SUMMARY | 2024-12-08 10:03 | XMS_ITS | Clinical Summary ---
Author Organization [facility] Address [address] [place] [address] Care Team Providers Care Tricot Knitting Machine Operator Name Role Phone Lulu Noyola Primary Care Provider [phone] Giacomo Pereira MD Unavailable Eulalia Purvis Unavailable [phone] Pam Fay RN Unavailable [phone] Encounters Date Type Department Care Team Description 10/03/2024 [facility] [address] [place] [address] Lionel Correia MD Urinary incontinence, unspecified type [...] Description 12/30/2024 2:45 PM EDT Office Visit [facility] [address], [address] [place] [address] Dwayne Adame MD [address] [place] [address] Health Maintenance Due Date Last [...] Vaccines (2 of 3) 01/07/2019 11/12/2018, 06/12/2018 [id number] Vaccine (5 - 2023- season) 2024 02/12/2024, 05/18/2022, 07/04/2021, Additional history exists [facility]Y-Influenza Vaccine (#1) 02/02/202506/27, 03/30/2021, 04/13/2020, Additional history exists [facility]-DTaP,Tdap,and Td [...] MEDICAID[place] HUMANA MEDICARE AETNA MEDICARE Care Teams Tricot Knitting Machine Operator Relationship Specialty Start Date End Date Lulu Noyola PA [address] [place] [address] PCP - General 10/15/20 Giacomo Pereira MD [address] [facility] [address] [place] [address] Transplant Physician Transplant Surgery 10/24/20 [place] [address] Surgical Navigator Transplant 10/24/20 Pam Fay RN [facility] [address] [place] [address] Surgical Navigator Transplant Surgery 01/13/21
--- OUTSIDE RECORDS SUMMARY | 2024-12-08 10:03 | XMS_ITS | Encounter Summary ---
Author Organization [facility] Address [address] [place] [address] Care Team Providers Care Pumpman Name Role Phone Lulu Noyola Primary Care Provider [phone] Giacomo Pereira MD Unavailable Eulalia Purvis Unavailable [phone] Pam Fay RN Unavailable [phone] Encounter Details Date Type Department Care Team (Late Contact Info) Description 11/26/2018 Legacy OTTR Encounter Historical OTTR [address] [place] [address] [place] [address] Social History Tobacco Use Types Packs/Day Years [...] Description 12/30/2024 2:45 PM EDT Office Visit [facility] General Surgery [address], [address] [place] [address] Dwayne Adame MD [address] [facility] [address] [place] [address] documented as of this encounter Visit Diagnoses Not on filedocumented in this encounter Care Teams Pumpman Relationship Specialty Start Date End Date Lulu Noyola PA [address] [facility] [place] [address] PCP - General 10/15/20 Giacomo Pereira MD [address] [facility] [address] [place] [address] Transplant Physician Transplant Surgery 10/24/20 [place] [address] Surgical Navigator Transplant 10/24/20 Pam Fay, RN [facility] [address] [place] [address] Surgical Navigator Transplant Surgery 01/13/21 documented as of this encounter
--- OUTSIDE RECORDS SUMMARY | 2024-12-08 10:03 | XMS_ITS | Encounter Summary ---
Author Organization [facility] Address [address] [place] [address] Care Team Providers Care Unit Aide Name Role Phone Lulu Noyola Primary Care Provider [phone] Giacomo Pereira MD Unavailable Eulalia Purvis Unavailable [phone] Pam Fay RN Unavailable [phone] Encounter Details Date Type Department Care Team (Late st Contact Info) Description 03/24/2019 Legacy OTTR Encounter Historical OTTR [address] [place] [address] Cordelia Haynes [place] [id number] Social History Tobacco Use Types Packs/Day Years [...] Cordelia Haynes - 03/24/2019 1:28 PM EDT LVM @ [phone] with 04/16/19 12:15 pm arrival time for labs/MBS/MRI requesting confirmation call. documented in this encounter Plan of Treatment Upcoming Encounters Date Type Department Care Team (Late st Contact Info) Description 12/30/2024 2:45 PM EDT Office Visit [facility] General Surgery [address], [address] [place] [address] Dwayne Adame MD [address] [place] [address] documented as of this encounter Visit Diagnoses Not on filedocumented in this encounter Care Teams Unit Aide Relationship Specialty Start Date End Date Lulu Noyola PA [address] [place] [address] PCP - General 10/15/20 Giacomo Pereira MD [address] [place] [address] Transplant Physician Transplant Surgery 10/24/20 [place] [address] Surgical Navigator Transplant 10/24/20 Pam Fay, RN [facility] [address] [place] [address] Surgical Navigator Transplant Surgery 01/13/21 documented as of this encounter
--- OUTSIDE RECORDS SUMMARY | 2024-12-08 10:03 | XMS_ITS | Encounter Summary ---
Author Organization [facility] Address [address] [place] [id number] Care Team Providers Care Curriculum Developer Name Role Phone Lulu Noyola Primary Care Provider [phone] Giacomo Pereira MD Unavailable Eulalia Purvis Unavailable [phone] Pam Fay RN Unavailable [phone] Encounter Details Date Type Department Care Team (Late st Contact Info) Description 03/18/2018 Legacy OTTR Encounter Historical OTTR [address] [place] [address] Pam Fay, RN [facility] [address] [place] [address] Social History Tobacco Use Types Packs/Day Years Used Date Smoking Tobacco: Never Assessed Comments Unknown Sex and Gender Information Value Date Recorded Sex Assigned at Not on file Legal Sex Female 6:01 PM EDT Gender Identity Not on file Sexual Orientation Not on file documented as of this encounter Miscellaneous Notes * Progress Notes - Pam Fay RN - 03/18/2018 3:22 PM EDT Reviewed [...] hours. Auth can be obtained by calling [phone] ref # [id number]. * Progress Notes - Pam Fay RN [...] lesions. Pt. needs MRI liver protocol at [facility], should not be performed elsewhere and needs to be done within the next 2-3 weeks. Will discuss w/ pt. and notify of appt. once scheduled. * Progress Notes - ProviderArely MD - 02/12/2018 3:06 PM EDT DOS 02/27/2018 US Giovanni/Art Abdomen , 1. Federal Medicare NPR, 2. [place] Medicaid Traditional NPR, updating nurse and IAuth * Progress Notes - Arely Hernandez MD - 02/06/2018 9:13 AM EDT Pt. scheduled for US on 02/27 @ 6:30am Pav A (NPO x 8 hours, 6:00am). Pt. confirmed appt. Mailed appt. reminder. Note to TH for US precert [id number]. * Progress Notes - Pam Fay RN - 02/05/2018 3:18 PM EDT Called pt. to notify of TB plan. LVM advising that US w/ doppler would be scheduled, requested callback if she'd like to discuss. Order in SCM. Note to CT to schedule for next available. * Progress Notes - Pam Fay RN - 02/05/2018 3:18 PM EDT Pt. discussed in TB on 02/01. Plan Details: No concerning findings for malignancy. Liver lesions appear to be AV malformations. We will obtain ultrasound of liver with color doppler to confirmthat these are AVM's. * Progress Notes - Pam Fay RN - 01/24/2018 1:57 PM EDT Pt. seen in clinic today by Dr. Pereira. Plan is to discuss in tumor board next 02/01. Advised pt. that I'd call by EOD the following Sunday w/ plan. She confirmed understanding and knows to callw/ any questions prior to then. * Progress Notes - Arely Hernandez MD - 01/23/2018 8:17 AM EDT MBS in OR this afternoon. Called pt. LVM asking for call back to r/s to either tmrw; 12pm labs, 1pmvisit or next Weds. * Progress Notes - Enriqueta Villarreal - 01/18/2018 2:44 PM EDT Radiology [facility] * Progress Notes - Enriqueta Villarreal - 01/16/2018 9:59 AM EDT CD images received from [facility] - downloaded to PACS. * Progress Notes - Arely Hernandez MD - 01/15/2018 3:01 PM EDT Pt. called back, scheduled for ICE on 01/23; labs @ 1pm, visit aminata Pereira @ 1:40pm. Pt. confirmed. Mailed ICE ppw. Faxed Mitzy Rose's office notifying of appt. * Progress Notes - Arely Hernandez MD - 01/15/2018 2:47 PM EDT Called pt. LVM asking for call back to schedule ICE. * Progress Notes - Enriqueta Villarreal - 01/15/2018 1:54 PM EDT Faxed request for cd images to [facility] for fedex priority shipping. Records received fromChaitanya Rose's office - saved in [employer]. * Progress Notes - Leyda Villarrealecca E - 01/14/2018 3:32 PM EDT Surgical referral from Mitzy Rose to [facility] - 57 yo woman with multiple liver lesions. Called referring office - spoke to Luana, requested records - Luana will fax these tomorrow when she has the chart. Ms Thrasher was seen by Chaitanya Rose at the specialty clinic in [place] - that clinic does not have any records. Note to HEW/CNT documented in this encounter Plan of Treatment Upcoming Encounters Date Type Department Care Team (Late st Contact Info) Description 12/30/2024 2:45 PM EDT Office Visit [facility] General Surgery [address], [address]st [place] [address] Dwayne Adame MD [address] [place] [address] documented as of this encounter Procedures Procedure [...] us Historical Provider LAB BLOOD ORDERABLES Hortencia l Result EXTERNAL LAB documented in this encounter Visit Diagnoses Not on filedocumented in this encounter Care Teams Curriculum Developer Relationship Specialty Start Date End Date Lulu Noyola PA [address] [place] [address] PCP - General 10/15/20 Giacomo Pereira MD [address] [place] [address] Transplant Physician Transplant Surgery 10/24/20 [place] [address] Surgical Navigator Transplant 10/24/20 Pam Fay, RN [facility] [address] [place] [address] Surgical Navigator Transplant Surgery 01/13/21 documented as of this encounter
--- OUTSIDE RECORDS SUMMARY | 2024-12-08 10:03 | XMS_ITS | Clinical Summary ---
Author Organization [facility] Address [address] [place] [address] Phone Care Team Providers Care Underwater Photographer Name Role Phone Devan Lundberg NP Primary Care Provider [phone] Allergies Active Allergy Reactions Criticality Noted Date [...] with Macroplastique; Surgeon: Diana Burkett MD; Location: [facility] MAIN OR; Service: Urogynecology Medical devices from this surgery are in the Medical Devices section. Medical History Medical History Date Comments Allergic rhinitis due to pollen Shortness of breath Hypertension Hyperlipidemia Angina pectoris EVERY ONCE IN A WHILE. 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 USUALLY HAPPENS WITH OVEREXERTION OR ANXIETY. LAST [...] 05/23/2021 Bone Density Screening 02/29/2024 Influenza Vaccine (#1) 2025 , 03/30/2021, 04/13/2020, Additional history exists DTaP/TDaP/Td (2 - Td or Tdap) 12/26/2028 12/26/2018 Pneumococcal Vaccine 50+ Completed 08/17/2022, 10/03 Hepatitis B Vaccine Aged Out No longe r eligible based on patient's age to complete this topic Meningococcal B Vaccine Aged Out No l onger eligible based on patient's age to complete this topic Medical Devices Implanted Type Area Nursery Attendant Device Identifier Shelf Expiration Date Model / Serial / Lot Knee/Ankle Hardware Loop Recorder Drug Dermatologic 2.5ml Syr Adlt Macroplastique - [id number] Implanted:Qty: 1 on 09/06/2023 by Diana Burkett MD at [facility] N/A: [employer] 10/29/2024 MPQ-2.5 / / [id number] Drug Dermatologic 2.5ml Syr Adlt Macroplastique - [id number] Implanted:Qty: 1 on 09/06/2023 by Diana Burkett MD at [facility] N/A: [employer] 11/29/2024 MPQ-2.5 / / [id number] Insurance HUMANA MEDICARE PPO [place] Member Subscriber Plan / Payer (Ef fective 2023-Present) Name:Betty Thrasher Relation to Subscriber:Self Name:Betty Thrasher Payer ID:Not on file Group ID:Not on file Type:Not on file Address: [address] [place] [id number] [facility] MEDICARE O MEDICAID [place] Care Teams Underwater Photographer Relationship Specialty Start Date End Date Devan Lundberg NP [address] [place], [place] [id number] PCP - General Nurse Practitioner-Family 08/09/23
--- OUTSIDE RECORDS SUMMARY | 2024-12-08 10:03 | XMS_ITS | Encounter Summary ---
Author Organization [facility] Address [address] [place] [address] Care Team Providers Care Ibm Websphere Commerce Developer Name Role Phone Lulu Noyola Primary Care Provider [phone] Giacomo Pereira MD Unavailable Eulalia Purvis Unavailable [phone] Pam Fay RN Unavailable [phone] Encounter Details Date Type Department Care Team (Late st Contact Info) Description 03/12/2019 Legacy OTTR Encounter Historical OTTR [address] [place] [address] Eulalia Purvis [place] [id number] Social History Tobacco Use Types Packs/Day Years [...] Visit [facility] [address] [place] [address] Dwayne Adame MD [address] [facility] [address] [place] [address] documented as of this encounter Visit Diagnoses Not on filedocumented in this encounter Care Teams Ibm Websphere Commerce Developer Relationship Specialty Start Date End Date Lulu Noyola PA [address] [place] [address] PCP - General 10/15/20 Giacomo Pereira MD [address] [facility] [address] [place] [address] Transplant Physician Transplant Surgery 10/24/20 [place] [address] Surgical Navigator Transplant 10/24/20 Pam Fay RN [facility] [address] [place] [address] Surgical Navigator Transplant Surgery 01/13/21 documented as of this encounter
--- NOTE | 2024-12-08 10:30 | MM_ITS ---
PROCEDURE INFORMATION: Exam: MG Bilateral Screening 3D Mammography Exam date and time: 12/08/2024 10:31 AM Age: 64 years old Clinical indication: Screening examination TECHNIQUE: Imaging protocol: Bilateral Screening tomosynthesis and 2D mammography including computer-aided detection (CAD) when performed. COMPARISON: 1. MG MM DIG SCREENING MAMM BI W/CAD 11/14/2023 10:04 AM 2. MG MM DIG SCREENING MAMM BI W/CAD 10/27/2022 10:54 AM FINDINGS: MAMMOGRAPHY: Breast composition: There are scattered areas of fibroglandular density. Mass: None. Architectural distortion: None. Calcifications: No suspicious calcifications. Asymmetric density: None. Skin thickening: A loop recorder device overlies the left chest wall and obscures underlying breast tissue. Axillary adenopathy: None. IMPRESSION: No mammographic evidence of malignancy. Annual screening is recommended unless otherwise clinically indicated. ASSESSMENT: BI-RADS Category 1: Negative.
== END 2024-12-08 23:59 | disposition home or self-care (01) ==
LOC: RAD 09:51
PROVIDERS: PCP Nurse Practitioner Family; Visit Provider Nurse Practitioner Family
DX: Z12.31 Encounter for screening mammogram for malignant neoplasm of breast (principal); R92.323 Mammographic fibroglandular density, bilateral breasts; Z95.818 Presence of other cardiac implants and grafts
CPT/HCPCS: 77063; 77067

== ENCOUNTER 2024-12-11 09:47 | Outpatient (POV) | payer MEDICARE, MEDICAID, SELFPAY ==
--- OUTSIDE RECORDS SUMMARY | 2024-12-11 09:53 | XMS_ITS | Encounter Summary ---
Author Organization [facility] Address [address] [place] [address] Care Team Providers Care Correctional Case Records Supervisor Name Role Phone Lulu Noyola Primary Care Provider [phone] Giacomo Pereira MD Unavailable Eulalia Purvis Unavailable [phone] Pam Fay RN Unavailable [phone] Encounter Details Date Type Department Care Team (Late st Contact Info) Description 02/11/2019 Legacy OTTR Encounter Historical OTTR [address] [place] [address] ProviderArely MD [address] [place] [address] Social History Tobacco Use Types Packs/Day [...] DOS 03/12/2019 MRI Abdomen w wo contrast 24201 1. Human Medicare auth approved auth # [id number] valid dates 03/12/2019-04/12/2019 documented in this encounter Plan of Treatment Upcoming Encounters Date Type Department Care Team (Late st Contact Info) Description 12/30/2024 2:45 PM EDT Office Visit [facility] [address]st [place] [address] Dwayne Adame MD [address] [facility] [address] [place] [address] documented as of this encounter Visit Diagnoses Not on filedocumented in this encounter Care Teams Correctional Case Records Supervisor Relationship Specialty Start Date End Date Lulu Noyola PA [address] [place] [address] PCP - General 10/15/20 Giacomo Pereira MD [address] [facility] [address] [place] [address] Transplant Physician Transplant Surgery 10/24/20 [place] [address] Surgical Navigator Transplant 10/24/20 Pam Fay RN [facility] [address] [place] [address] Surgical Navigator Transplant Surgery 01/13/21 documented as of this encounter
--- OUTSIDE RECORDS SUMMARY | 2024-12-11 09:53 | XMS_ITS | Encounter Summary ---
Author Organization [facility] Address [address] [place] [id number] Care Team Providers Care Outpatient Coding Specialist Name Role Phone Lulu Noyola Primary Care Provider [phone] Giacomo Pereira MD Unavailable Eulalia Purvis Unavailable [phone] Pam Fay RN Unavailable [phone] Encounter Details Date Type Department Care Team (Late Contact Info) Description 03/13/2019 Legacy OTTR Encounter Historical OTTR [address] [place] [address] [place] [address] Social History Tobacco Use Types Packs/Day Years [...] - 03/13/2019 2:59 PM EDT LVM @ [phone] with 04/16/19 12:15 pm arrival time for labs/MBS/MRI requesting confirmation call. Appt schedule mailed. Note to for precert update on rescheduled MRI from 03/12/19. documented in this encounter Plan of Treatment Upcoming Encounters Date Type Department Care Team (Late Contact Info) Description 12/30/2024 2:45 PM EDT Office Visit [facility] General Surgery [address], [address] [place] [address] Dwayne Adame MD [address] [place] [address] documented as of this encounter Visit Diagnoses Not on filedocumented in this encounter Care Teams Outpatient Coding Specialist Relationship Specialty Start Date End Date Lulu Noyola PA [address] [place] [address] PCP - General 10/15/20 Giacomo Pereira MD [address] [place] [address] Transplant Physician Transplant Surgery 10/24/20 [place] [address] Surgical Navigator Transplant 10/24/20 Pam Fay RN [facility] [address] [place] [address] Surgical Navigator Transplant Surgery 01/13/21 documented as of this encounter
--- OUTSIDE RECORDS SUMMARY | 2024-12-11 09:53 | XMS_ITS | Encounter Summary ---
Author Organization [facility] Address [address] [place] [address] Care Team Providers Care Chef Instructor Name Role Phone Lulu Noyola Primary Care Provider [phone] Giacomo Pereira MD Unavailable Eulalia Purvis Unavailable [phone] Pam Fay RN Unavailable [phone] Encounter Details Date Type Department Care Team (Late Contact Info) Description 11/26/2018 Legacy OTTR Encounter Historical OTTR [address] [place] [address] [place] [address] Social History Tobacco Use Types Packs/Day Years [...] Description 12/30/2024 2:45 PM EDT Office Visit [facility] General Surgery [address], 1[address] [place] [address] Dwayne Adame MD [address] [facility] [address] [place] [address] documented as of this encounter Visit Diagnoses Not on filedocumented in this encounter Care Teams Chef Instructor Relationship Specialty Start Date End Date Lulu Noyola PA [address] [place] [address] PCP - General 10/15/20 Giacomo Pereira MD [address] [facility] [address] [place] [address] Transplant Physician Transplant Surgery 10/24/20 [place] [address] Surgical Navigator Transplant 10/24/20 Pam Fay, RN [facility] [address] [place] [address] Surgical Navigator Transplant Surgery 01/13/21 documented as of this encounter
--- OUTSIDE RECORDS SUMMARY | 2024-12-11 09:53 | XMS_ITS | Encounter Summary ---
Author Organization [facility] Address [address] [id number] Care Team Providers Care Marine Engineer Cpvec Name Role Phone Lulu Noyola Primary Care Provider [phone] Giacomo Pereira MD Unavailable Eulalia Purvis Unavailable [phone] Pam Fay RN Unavailable [phone] Encounter Details Date Type Department Care Team (Late st Contact Info) Description 03/18/2018 Legacy OTTR Encounter Historical OTTR [address] [place] [address] Pam Fay, RN [facility] [address] [place] [address] Social History Tobacco Use Types Packs/Day Years [...] hours. Auth can be obtained by calling [phone] ref # [id number]. * Progress Notes - Pam Fay RN [...] lesions. Pt. needs MRI liver protocol at [facility], should not be performed elsewhere and needs [...] reminder. Note to TH for US precert [id number]. * Progress Notes - Pam Fay RN [...] 2:44 PM EDT Radiology reports received from [facility] - [facility] * Progress Notes - Enriqueta Villarreal - 01/16/2018 9:59 AM EDT CD images received from [facility] - downloaded to PACS. * Progress [...] EDT Faxed request for cd images to [facility] for fedex priority shipping. Records received fromChaitanya Rose's office - saved in [facility]. * Progress Notes - Leyda Villarrealecca E - 01/14/2018 3:32 PM EDT Surgical referral from Mitzy Rose to [facility] - 57 yo woman with multiple liver lesions. Called referring office - spoke to Luana, requested records - Luana will fax these tomorrow when she has the chart. Ms Thrasher was seen by Chaitanya Rose at the specialty clinic in [place] - that clinic does not have any records. Note to HEW/CNT documented in this encounter Plan of Treatment Upcoming Encounters Date Type Department Care Team (Late st Contact Info) Description 12/30/2024 2:45 PM EDT Office Visit [facility] General Surgery [address], [address] [place] [address] Dwayne Adame MD [address] [place] [address] documented as of this encounter Procedures Procedure [...] on filedocumented in this encounter Care Teams Marine Engineer Cpvec Relationship Specialty Start Date End Date Lulu Noyola PA [address] [place] [address] PCP - General 10/15/20 Giacomo Pereira MD [address] [place] [address] Transplant Physician Transplant Surgery 10/24/20 [place] [address] Surgical Navigator Transplant 10/24/20 Pam Fay, RN [facility] [address] [place] [address] Surgical Navigator Transplant Surgery 01/13/21 documented as of this encounter
--- OUTSIDE RECORDS SUMMARY | 2024-12-11 09:53 | XMS_ITS | Encounter Summary ---
Author Organization [facility] Address [address] [place] [address] Care Team Providers Care Lockstitch Zipper Setter Name Role Phone Lulu Noyola Primary Care Provider [phone] Giacomo Pereira MD Unavailable Eulalia Purvis Unavailable [phone] Pam Fay RN Unavailable [phone] Encounter Details Date Type Department Care Team (Late st Contact Info) Description 03/14/2019 Legacy OTTR Encounter Historical OTTR [address] [place] [address] ProviderArely MD [address] [place] [address] Social History Tobacco Use Types Packs/Day [...] DOS 04/16/2019 MRI Abdomen w wo contrast 13224 1. [facility] Medicare auth approved auth # [id number] valid dates 04/16/2019-05/16/2019 updating IAuth and nurse. documented in this encounter Plan of Treatment Upcoming Encounters Date Type Department Care Team (Late st Contact Info) Description 12/30/2024 2:45 PM EDT Office Visit [facility] General Surgery [address] [place] [address] Dwayne Adame MD [address] [facility] [address] [place] [address] documented as of this encounter Visit Diagnoses Not on filedocumented in this encounter Care Teams Lockstitch Zipper Setter Relationship Specialty Start Date End Date Lulu Noyola PA [address] [place] [address] PCP - General 10/15/20 Giacomo Pereira MD [address] [facility] [address] [place] [address] Transplant Physician Transplant Surgery 10/24/20 [place] [address] Surgical Navigator Transplant 10/24/20 Pam Fay RN [facility] [address] [place] [address] Surgical Navigator Transplant Surgery 01/13/21 documented as of this encounter
--- OUTSIDE RECORDS SUMMARY | 2024-12-11 09:53 | XMS_ITS | Clinical Summary ---
Author Organization [facility] Address [address] [place] [address] Phone Care Team Providers Care Fourdrinier Tender Name Role Phone Devan Lundberg NP Primary Care Provider [phone] Allergies Active Allergy Reactions Criticality Noted Date [...] N/A Cystoscopy, Urethral Bulking with Macroplastique; Surgeon: Dinaa Burkett MD; Location: [facility] MAIN OR; Service: Urogynecology Medical devices from this surgery are in the Medical Devices section. Medical History Medical History Date Comments Allergic rhinitis due to pollen Shortness of breath Hypertension Hyperlipidemia Angina pectoris EVERY ONCE IN A WHILE. 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 USUALLY HAPPENS WITH OVEREXERTION OR ANXIETY. LAST [...] this topic Medical Devices Implanted Type Area Steam Shovel Operator Device Identifier Shelf Expiration Date Model / Serial / Lot Knee/Ankle Hardware Loop Recorder Drug Dermatologic 2.5ml Syr Adlt Macroplastique - [id number] Implanted:Qty: 1 on 09/06/2023 by Diana Burkett MD at [facility] N/A: Urethra [employer] 10/29/2024 MPQ-2.5 / / [id number] Drug Dermatologic 2.5ml Syr Adlt Macroplastique - [id number] Implanted:Qty: 1 on 09/06/2023 by Diana Burkett MD at [facility] N/A: Urethra [employer] 11/29/2024 MPQ-2.5 / / [id number] Insurance HUMANA MEDICARE PPO [place] Member Subscriber Plan / Payer (Ef fective 2023-Present) Name:Betty Thrasher Relation to Subscriber:Self Name:Betty Thrasher Payer ID:Not on file Group ID:Not on file Type:Not on file Address: [address] [place] [place] [id number] [facility] MEDICARE O MEDICAID [place] Care Teams Fourdrinier Tender Relationship Specialty Start Date End Date Devan Lundberg NP [address] [place], [place] [id number] PCP - General Nurse Practitioner-Family 08/09/23
--- OUTSIDE RECORDS SUMMARY | 2024-12-11 09:53 | XMS_ITS | Clinical Summary ---
Author Organization [facility] Address [address] [place] [address] Care Team Providers Care Senior Dynamics Crm Developer Name Role Phone Lulu Noyola Primary Care Provider [phone] Giacomo Pereira MD Unavailable Eulalia Purvis Unavailable [phone] Pam Fay RN Unavailable [phone] Encounters Date Type Department Care Team Description 10/03/2024 [facility] [address] [place] [address] Lionel Correia MD Urinary incontinence, unspecified type [...] Description 12/30/2024 2:45 PM EDT Office Visit [facility] Surgery [address] [place] [address] Dwayne Adame MD [address] [place] [address] Health Maintenance Due Date Last [...] Vaccines (2 of 3) 01/07/2019 11/12/2018, 06/12/2018 [id number] Vaccine (5 - 2023- season) 2024 02/12/2024, [...] [place] HUMANA MEDICARE AETNA MEDICARE Care Teams Senior Dynamics Crm Developer Relationship Specialty Start Date End Date Lulu Noyola PA [address] [place] [address] PCP - General 10/15/20 Giacomo Pereira MD [address] [facility] [address] [place] [address] Transplant Physician Transplant Surgery 10/24/20 [place] [address] Surgical Navigator Transplant 10/24/20 Pam Fay RN [facility] [address] [place] [address] Surgical Navigator Transplant Surgery 01/13/21
--- OUTSIDE RECORDS SUMMARY | 2024-12-11 09:53 | XMS_ITS | Encounter Summary ---
Author Organization [facility] Address [address] [place] [address] Care Team Providers Care Sleeping Car Conductor Name Role Phone Lulu Noyola Primary Care Provider [phone] Giacomo Pereira MD Unavailable Eulalia Purvis Unavailable [phone] Pam Fay RN Unavailable [phone] Encounter Details Date Type Department Care Team (Late st Contact Info) Description 03/12/2019 Legacy OTTR Encounter Historical OTTR [address] [place] [address] Eulalia Purvis [place] [id number] Social History Tobacco Use Types Packs/Day Years [...] Visit [facility] [address], 1st [place] [address] Dwayne Adame MD [address] [facility] [address] [place] [address] documented as of this encounter Visit Diagnoses Not on filedocumented in this encounter Care Teams Sleeping Car Conductor Relationship Specialty Start Date End Date Lulu Noyola PA [address] [place] [address] PCP - General 10/15/20 Giacomo Pereira MD [address] [facility] [address] [place] [address] Transplant Physician Transplant Surgery 10/24/20 [place] [address] Surgical Navigator Transplant 10/24/20 Pam Fay RN [facility] [address] [place] [address] Surgical Navigator Transplant Surgery 01/13/21 documented as of this encounter
--- OUTSIDE RECORDS SUMMARY | 2024-12-11 09:53 | XMS_ITS | Encounter Summary ---
Author Organization [facility] Address [address] [place] [address] Care Team Providers Care Radiology Services Manager Name Role Phone Lulu Noyola Primary Care Provider [phone] Giacomo Pereira MD Unavailable Eulalia Purvis Unavailable [phone] Pam Fay RN Unavailable [phone] Encounter Details Date Type Department Care Team (Latest Contact Info) Description 10/03/2024 Community [facility] Community Practice [address] [place] [address] Lionel Correia MD [address] [place], [place] [id number] Urinary incontinence, unspecified type (Primary Dx); Full [...] Description 12/30/2024 2:45 PM EDT Office Visit [facility] Surgery [address], [address] [place] [address] Dwayne Adame MD [address] [place] [address] documented as of this encounter Visit Diagnoses Diagnosis Urinary incontinence, unspecified type- Primary Full incontinence of feces documented in this encounter Care Teams Radiology Services Manager Relationship Specialty Start Date End Date Lulu Noyola PA [address] [place] [address] PCP - General 10/15/20 Giacomo Pereira MD [address] [place] [address] Transplant Physician Transplant Surgery 10/24/20 [place] [address] Surgical Navigator Transplant 10/24/20 Pam Fay RN [facility] [address] [place] [address] Surgical Navigator Transplant Surgery 01/13/21 documented as of this encounter
--- OUTSIDE RECORDS SUMMARY | 2024-12-11 09:53 | XMS_ITS | Encounter Summary ---
Author Organization [facility] Address [address] [place] [address] Care Team Providers Care Water Softener Service Supervisor Name Role Phone Lulu Noyola Primary Care Provider [phone] Giacomo Pereira MD Unavailable Eulalia Purvis Unavailable [phone] Pam Fay RN Unavailable [phone] Encounter Details Date Type Department Care Team (Late st Contact Info) Description 03/24/2019 Legacy OTTR Encounter Historical OTTR [address] [place] [address] [address] [id number] Social History Tobacco Use Types Packs/Day Years [...] - 03/24/2019 1:28 PM EDT LVM @ [phone] with 04/16/19 12:15 pm arrival time for labs/MBS/MRI requesting confirmation call. documented in this encounter Plan of Treatment Upcoming Encounters Date Type Department Care Team (Late st Contact Info) Description 12/30/2024 2:45 PM EDT Office Visit [facility] General Surgery [address] [place] [address] Dwayne Adame MD [address] [place] [address] documented as of this encounter Visit Diagnoses Not on filedocumented in this encounter Care Teams Water Softener Service Supervisor Relationship Specialty Start Date End Date Lulu Noyola PA [address] [place] [address] PCP - General 10/15/20 Giacomo Pereira MD [address] [place] [address] Transplant Physician Transplant Surgery 10/24/20 [place] [address] Surgical Navigator Transplant 10/24/20 Pam Fay, RN [facility] [address] [place] [address] Surgical Navigator Transplant Surgery 01/13/21 documented as of this encounter
--- NOTE | 2024-12-11 10:05 | A.OFFVIS_ITS ---
[facility] Disclaimer: The information contained in this section may have been updated after the patient was seen, as this information can be updated by other users. Medical History (Updated 12/10/24 @ 10:09 by [employer]) Mixed hyperlipidemia Implantable loop recorder present Asthma Encounter for loop recorder at end of battery life Bilateral hearing loss Allergic rhinitis Dyspnea on exertion Multiple lung nodules on CT History of COPD History of asthma Erosion of vaginal mesh Incontinence in female Urinary urgency ABRAM (stress urinary incontinence, female) Postmenopausal atrophic vaginitis Dysphagia Frequent headaches Pulmonary nodules Hoarseness Angina pectoris Fatigue Edema of both lower extremities Numbness of tongue Dizziness Abnormal electrocardiogram [ECG] [EKG] Tachycardia Sepsis Osteopenia Anemia Chronic pain disorder Dyspnea Family history of colon cancer Lumbar disc disease with radiculopathy Primary osteoarthritis of both feet Acquired equinus deformity of both feet Lumbar disc disease with radiculopathy Migraine headache Constipation Daytime somnolence Snoring Restless sleeper Paroxysmal SVT (supraventricular tachycardia) Liver lesion Lumbar disc disease with radiculopathy Hormone replacement therapy (HRT) Syncope Depression Hypothyroidism GERD (gastroesophageal reflux disease) Anxiety Surgical History History of thyroidectomy History of cholecystectomy Hx of appendectomy H/O: hysterectomy S/P cubital tunnel release History of resection of rib History of surgery on lower extremity Family History Other Asthma Cancer Diabetes Hyperlipidemia Hypertension Stroke Thyroid disorder Tuberculosis Social History Smoking Status: Former smoker second hand exposure: No alcohol intake: never substance use type: denies use current occupational status: other Travel in the last 8 weeks?: None household members: spouse housing: house current occupational exposures/hazards: No caffeine: Yes PM Subjective & Objective Subjective Subjective:: Patient is a pleasant 64-year-old female who presents today for follow-up of her right infrapatellar nerve block on 11/25/2024. Today she rates her pain a 2 out of 10. Patient states that it did take over a week for it to kick in however it has made a huge difference in the numbness in her knee. Patient is rating at least 80% improvement and that it is ongoing. She states she does still have some but it is nothing like what it had been. Patient is very pleased with how this injection went. Her Daniele has been reviewed and is appropriate. Review of Systems: General: No recent weight changes, no fever, no sleep disturbances Respiratory: No cough, no shortness of air, no recurring pulmonary infections Cardiovascular/peripheral vascular: No chest pain, no palpitations, no edema, no shortness of breath Gastrointestinal: No new onset incontinence, normal bowel movements reported Genitourinary: No new onset incontinence Musculoskeletal: Right knee pain Psychiatric: [Normal mood/affect] Neurological: [Denies weakness in extremities], [denies balance issues] Pain at rest (0-10 scale): 2 Objective Objective:: Physical Exam: General: Alert and oriented x3, no acute distress, pleasant and cooperative Lungs: Respirations even and unlabored, symmetrical chest expansion Eyes: PERRL Musculoskeletal: Flexion and extension of right knee [spine] somewhat guarded secondary to pain Neurological: Speech clear, no gross sensory deficit Has patient had previous pain injection?: Yes Percent improvement in pain since last injection: 80% Conservative treatment options previously tried: Home exercise plan Length of treatment: Longer than 12 weeks Meds Home Medications and Allergies Home Medications ?Medication ?Instructions ?Recorded ?Confirmed ?Type aspirin 81 mg tablet,delayed 81 mg PO DAILY heart heal th #90 05/07/23 12/10/24 Rx release tabs budesonide-formoterol HFA 160 1 puff inhalation BID 90 days 03/04/24 12/10/24 Rx mcg-4.5 mcg/actuation aerosol #10.2 grams inhaler (Symbicort) estradiol 1 mg tablet See Rx Instructions .Route 0 09/02/24 12/10/24 Rx .COMPLEX #90 tabs rosuvastatin 10 mg tablet See Rx Instructions .Route 0 09/09/24 12/10/24 Rx .COMPLEX #90 tabs fluticasone propionate 50 See Rx Instructions .Route 0 10/29/24 12/10/24 Rx mcg/actuation nasal .COMPLEX #16 grams spray,suspension levothyroxine 50 mcg tablet See Rx Instructions .Route 11/03/24 12/10/24 Rx .COMPLEX #30 tabs topiramate 50 mg tablet See Rx Instructions .Route 0 11/19/24 12/10/24 Rx .COMPLEX #60 tabs hydrocodone 5 mg-acetaminophen 325 1 tab PO DAILY PRN pain 30 days 12/08/24 12/10/24 Rx mg tablet #30 tabs linaclotide 72 mcg capsule See Rx Instructions .Route 12/08/24 12/10/24 Rx (Linzess) .COMPLEX #90 caps lorazepam 0.5 mg tablet 0.5 mg PO DAILY PRN anxiety #30 12/08/24 12/10/24 Rx tabs New Prescriptions to Start Prescriptions: Allergies Allergy/AdvReac Type Severity Reaction Status Date / Time rizatriptan Allergy Severe Anaphylaxis Verified 12/10/24 08:47 captopril Allergy Mild Hives Verified 12/10/24 08:47 vibegron (From Gemtesa) Allergy Rash Verified 12/10/24 08:47 Assessment and Plan *Assessment and plan (1) Chronic pain of right knee: Status: Acute Category: Medical Code(s): M25.561 - Pain in right knee; G89.29 - Other chronic pain Plan Patient has had consistent improvements following this injection and does not require any additional injection therapy at this time. Patient will return to clinic and 6 weeks for reevaluation of symptoms and plan of care. Patient has been instructed to contact the clinic with any concerns before the next appointment. Dr. Liz has reviewed this note and agrees with this plan of care. This note was dictated using voice recognition software and make contain errors or omissions. All injections are used with Lidocaine, Bupivacaine and dexamethasone. Occasionally urine drug screen is needed to verify patient's compliance with our office pain contract. This is ordered based off specific treatments related to chronic pain with the potential to abuse certain medications.
[2024-12-11 10:37] VITALS: BP 98/71; PULSE 104; RESP 18; O2SAT 98; BMI 14.6
== END 2024-12-11 23:59 | disposition home or self-care (01) ==
LOC: SC.PAIN 09:49
PROVIDERS: PCP Nurse Practitioner Family; Visit Provider Nurse Practitioner Family
DX: M25.561 Pain in right knee (principal); G89.29 Other chronic pain
CPT/HCPCS: 99212; G0463

== ENCOUNTER 2024-12-31 06:53 | Outpatient (CLI) | payer MEDICARE, MEDICAID, SELFPAY ==
--- OUTSIDE RECORDS SUMMARY | 2024-12-30 14:45 | XMS_ITS | Encounter Summary ---
Author Organization [facility] Address [address] [place] [address] Care Team Providers Care Justice Court Deputy Clerk Name Role Phone Lulu Noyola Primary Care Provider [phone] Giacomo Pereira MD Unavailable Eulalia Purvis Unavailable [phone] Pam Fay RN Unavailable [phone] Reason for Referral * Imaging (Routine) - Pending Review Specialty Diagnoses / Procedures Referred By Contac t Referred To Contact Radiology Diagnoses Pelvic floor dysfunction Procedures MR Defecography MR Defecography Dwayne Adame MD [address] [facility] [address] [place] [address] Phone: tel: fax: Referral ID Status Reason Start Date Expiration Date V isits Requested Visits Authorized [id number] Pending Review 12/30/2024 07/01/2026 1 1 Reason for Visit * Reason Comments New Patient * Consultation (Routine) - Closed Specialty Diagnoses / Procedures Referred By Contac t Referred To Contact General, Endocrine & Minimally Invasive Surgery / General Surgery Diagnoses Incontinence of feces Lionel Correia MD [address] [place] [address] Phone: tel: fax: Referral ID Status Reason Start Date Expiration Date V isits Requested Visits Authorized [id number] Closed Specialty Services Required 10/08/2024 04/09/2026 1 1 Encounter Details Date Type Department Care Team (Late st Contact Info) Description 12/30/2024 2:45 PM EDT Office Visit [facility] General Surgery [address] [place] [address] Dwayne Adame MD [address] [place] [address] Pelvic floor dysfunction (Primary Dx) [...] documented as of this encounter Care Teams Justice Court Deputy Clerk Relationship Specialty Start Date End Date Lulu Noyola PA [address] [place] [address] PCP - General 10/15/20 Giacomo Pereira MD [address] [place] [address] Transplant Physician Transplant Surgery 10/24/20 [place] [address] Surgical Navigator Transplant 10/24/20 Pam Fay RN -TRANSPLANT ADMINISTRATION [address] [place] [address] Surgical Navigator Transplant Surgery 01/13/21 documented as of this encounter
--- NOTE | 2024-12-31 | CA_ITS ---
APPROVED REPORT Exam: Pharmacologic Technologist: Zeinab Cooper Ht: 5 ft 4 in Wt: 85 lbs BSA: 1.36 m2 HR: 55 bpm BP: 111/64 mmHg Stress Test Details Test: Lexiscan HR Resting HR: 55 bpm Max Heart Rate (APMHR): 155.109390 bpm Max HR Achieved: 95 bpm Target HR (85% APMHR): 131.568220 bpm % of APMHR: 61.29 Recovery HR: 68 bpm BP Resting BP: 111.0/64.0 mmHg Max BP: 115.0/72.0 mmHg Recovery BP: 115.0/72.0 mmHg ECG Stress ECG Conclusion Symptoms: Shortness of air, chest tightness Arrhythmias/Ectopy: None ST-T Changes: EKG non-diagnostic - Lexiscan Electronically signed by : Makayla Love MD 12/31/2024 11:43:37
--- OUTSIDE RECORDS SUMMARY | 2024-12-31 06:56 | XMS_ITS | Encounter Summary ---
Author Organization [facility] Address [address] [place] [id number] Care Team Providers Care Manager Reliability Name Role Phone Lulu Noyola Primary Care Provider [phone] Giacomo Pereira MD Unavailable Eulalia Purvis Unavailable [phone] Pam Fay RN Unavailable [phone] Encounter Details Date Type Department Care Team (Late st Contact Info) Description 11/26/2018 [facility] Encounter Historical [facility] [address] [place] [address] [place] [address] Social History Tobacco Use Types Packs/Day Years [...] confirmed 03/12/19 6:30 am arrival time w/ Ms. Thrasher. Appt reminder mailed Note to for MRI precert documented in this encounter Plan of Treatment Not on file documented as of this encounter Visit Diagnoses Not on filedocumented in this encounter Care Teams Manager Reliability Relationship Specialty Start Date End Date Lulu Noyola PA [address] [place] [address] PCP - General 10/15/20 Giacomo Pereira MD [address] [place] [address] Transplant Physician Transplant Surgery 10/24/20 [place] [address] Surgical Navigator Transplant 10/24/20 Pam Fay RN [facility]PL[facility] ADMINISTRATION [address] [place] [address] Surgical Navigator Transplant Surgery 01/13/21 documented as of this encounter
--- OUTSIDE RECORDS SUMMARY | 2024-12-31 06:56 | XMS_ITS | Encounter Summary ---
Author Organization [facility] Address [address] [place] [address] Care Team Providers Care Motor Vehicle Or Caravan Salesperson Name Role Phone Lulu Noyola Primary Care Provider [phone] Giacomo Pereira MD Unavailable Eulalia Purvis Unavailable [phone] Pam Fay RN Unavailable [phone] Encounter Details Date Type Department Care Team (Late st Contact Info) Description 03/13/2019 [facility] Encounter Historical OTTR [address] [place] [address] Cordelia Haynes [place] [id number] Social History Tobacco Use Types Packs/Day Years [...] - 03/13/2019 2:59 PM EDT LVM @ [phone] with 04/16/19 12:15 pm arrival time for labs/MBS/MRI requesting confirmation call. Appt schedule mailed. Note to for precert update on rescheduled MRI from 03/12/19. documented in this encounter Plan of Treatment Not on file documented as of this encounter Visit Diagnoses Not on filedocumented in this encounter Care Teams Motor Vehicle Or Caravan Salesperson Relationship Specialty Start Date End Date Lulu Noyola PA [address] [place] [address] PCP - General 10/15/20 Giacomo Pereira MD [address] [facility] [address] [place] [address] Transplant Physician Transplant Surgery 10/24/20 [place] [address] Surgical Navigator Transplant 10/24/20 Pam Fay, RN [facility] ADMINISTRATION [address] [place] [address] Surgical Navigator Transplant Surgery 01/13/21 documented as of this encounter
--- OUTSIDE RECORDS SUMMARY | 2024-12-31 06:56 | XMS_ITS | Encounter Summary ---
Author Organization [facility] Address [address] [place] [address] Care Team Providers Care Esthetician Permanent Makeup Artist Name Role Phone Lulu Noyola Primary Care Provider [phone] Giacomo Pereira MD Unavailable Eulalia Purvis Unavailable [phone] Pam Fay RN Unavailable [phone] Encounter Details Date Type Department Care Team (Late st Contact Info) Description 02/11/2019 [facility] Encounter Historical OTTR [address] [place] [address] ProviderArely MD [address] [place] [address] Social History Tobacco Use Types Packs/Day [...] DOS 03/12/2019 MRI Abdomen w wo contrast [id number] 1. [employer] Medicare auth approved auth # [id number] valid dates 03/12/2019-04/12/2019 documented in this encounter Plan of Treatment Not on file documented as of this encounter Visit Diagnoses Not on filedocumented in this encounter Care Teams Esthetician Permanent Makeup Artist Relationship Specialty Start Date End Date Lulu Noyola PA [address] [place] [address] PCP - General 10/15/20 Giacomo Pereira MD [address] [facility] [address] [place] [address] Transplant Physician Transplant Surgery 10/24/20 [place] [address] Surgical Navigator Transplant 10/24/20 Pam Fay RN [facility]TR[facility]PLANT ADMINISTRATION [address] [place] [address] Surgical Navigator Transplant Surgery 01/13/21 documented as of this encounter
--- OUTSIDE RECORDS SUMMARY | 2024-12-31 06:56 | XMS_ITS | Encounter Summary ---
Author Organization [facility] Address [address] [id number] Care Team Providers Care Public Speaking Professor Name Role Phone Lulu Noyola Primary Care Provider [phone] Giacomo Pereira MD Unavailable Eulalia Purvis Unavailable [phone] Pam Fay RN Unavailable [phone] Encounter Details Date Type Department Care Team (Late st Contact Info) Description 03/18/2018 [facility] OTTR Encounter Historical OTTR [address] [place] [address] Pam Fay, RN [facility] [address] [place] [address] Social History Tobacco Use Types Packs/Day Years [...] hours. Auth can be obtained by calling [phone] ref # [id number]. * Progress Notes - Pam Fay RN [...] lesions. Pt. needs MRI liver protocol at [facility], should not be performed elsewhere and needs [...] reminder. Note to TH for US precert [id number]. * Progress Notes - Pam Fay RN [...] 2:44 PM EDT Radiology reports received from [facility] - [facility] in [facility]. * Progress Notes - Enriqueta Villarreal - 01/16/2018 9:59 AM EDT CD images received from [facility] - downloaded to PACS. * Progress [...] EDT Faxed request for cd images to [facility] for fedex priority shipping. Records received fromChaitanya Rose's office - saved in [facility]. * Progress Notes - Leyda Villarrealecca E - 01/14/2018 3:32 PM EDT Surgical referral from Mitzy Rose to [facility] [place] - 57 yo woman with multiple liver lesions. Called referring office - spoke to Luana, requested records - Luana will fax these tomorrow when she has the chart. Ms Thrasher was seen by Chaitanya Rose at the specialty clinic in [place] - that clinic does not have any records. Note to HEW/CNT documented in this encounter Plan of Treatment Not on file documented as of this encounter Procedures Procedure [...] on filedocumented in this encounter Care Teams Public Speaking Professor Relationship Specialty Start Date End Date Lulu Noyola PA [address] [place] [address] PCP - General 10/15/20 Giacomo Pereira MD [address] [place] [address] Transplant Physician Transplant Surgery 10/24/20 [place] [address] Surgical Navigator Transplant 10/24/20 Pam Fay RN [facility] [address] [place], [place] [id number] Surgical Navigator Transplant Surgery 01/13/21 documented as of this encounter
--- OUTSIDE RECORDS SUMMARY | 2024-12-31 06:56 | XMS_ITS | Encounter Summary ---
Author Organization [facility] Address [address] [id number] Care Team Providers Care Home Demonstration Agent Name Role Phone Lulu Noyola Primary Care Provider [phone] Giacomo Pereira MD Unavailable Eulalia Purvis Unavailable [phone] Pam Fay RN Unavailable [phone] Encounter Details Date Type Department Care Team (Late st Contact Info) Description 03/12/2019 Legacy OTTR Encounter Historical OTTR [address] [place] [address] E[address] [place] [id number] Social History Tobacco Use Types Packs/Day Years [...] on filedocumented in this encounter Care Teams Home Demonstration Agent Relationship Specialty Start Date End Date Lulu Noyola PA [address] [place] [address] PCP - General 10/15/20 Giacomo Pereira MD [address] [place] [address] Transplant Physician Transplant Surgery 10/24/20 [place] [address] Surgical Navigator Transplant 10/24/20 Pam Fay RN [facility] [address] [place] [address] Surgical Navigator Transplant Surgery 01/13/21 documented as of this encounter
--- OUTSIDE RECORDS SUMMARY | 2024-12-31 06:56 | XMS_ITS | Encounter Summary ---
Author Organization [facility] Address [address] [place] [address] Care Team Providers Care Temperature Inspector Name Role Phone Lulu Noyola Primary Care Provider [phone] Giacomo Pereira MD Unavailable Eulalia Purvis Unavailable [phone] Pam Fay RN Unavailable [phone] Encounter Details Date Type Department Care Team (Latest Contact Info) Description 12/23/2024 Travel Social History Tobacco Use Types Packs/Day Years [...] as of this encounter Plan of Treatment Not on file documented as of this encounter Visit Diagnoses Not on filedocumented in this encounter Care Teams Temperature Inspector Relationship Specialty Start Date End Date Lulu Noyola PA [address] [place] [address] PCP - General 10/15/20 Giacomo Pereira MD [address] [place] [address] Transplant Physician Transplant Surgery 10/24/20 [place] [address] Surgical Navigator Transplant 10/24/20 Pam Fay RN -TRANSPLANT ADMINISTRATION [address] [place] [address] Surgical Navigator Transplant Surgery 01/13/21 documented as of this encounter
--- OUTSIDE RECORDS SUMMARY | 2024-12-31 06:56 | XMS_ITS | Encounter Summary ---
Author Organization [facility] Address [address] [place] [address] Care Team Providers Care Mill Stenciler Name Role Phone Lulu Noyola Primary Care Provider Giacomo Pereira MD Unavailable Eulalia Purvis Unavailable [phone] Pam Fay RN Unavailable [phone] Encounter Details Date Type Department Care Team (Latest Contact Info) Description 10/03/2024 [facility] [address] [place] [address] Lionel Correia MD [address] [place] [address] [place] [address] Urinary incontinence, unspecified type (Primary [...] feces documented in this encounter Care Teams Mill Stenciler Relationship Specialty Start Date End Date Lulu Noyola PA [address] [place] [address] PCP - General 10/15/20 Giacomo Pereira MD [address] [address] Transplant Physician Transplant Surgery 10/24/20 [place] [address] Surgical Navigator Transplant 10/24/20 Pam Fay, RN [facility]IST[facility] [address] [place] [address] Surgical Navigator Transplant Surgery 01/13/21 documented as of this encounter
--- OUTSIDE RECORDS SUMMARY | 2024-12-31 06:56 | XMS_ITS | Encounter Summary ---
Author Organization [facility] Address [address] [place] [address] Care Team Providers Care Api Developer Name Role Phone Lulu Noyola Primary Care Provider [phone] Giacomo Pereira MD Unavailable Eulalia Purvis Unavailable [phone] Pam Fay RN Unavailable Encounter Details Date Type Department Care Team (Latest Contact Info) Description 12/30/2024 Travel Social History Tobacco Use Types Packs/Day [...] on file documented as of this encounter Functional Status * AUDIT-C Score [...] Diagnoses Not on filedocumented in this encounter Additional Health Concerns Assessment Noted Time A fall risk assessment has been complete d for the patient 12/30/2024 2:07 PM EDT documented as of this encounter Care Teams Api Developer Relationship Specialty Start Date End Date Lulu Noyola PA [address] [place] [address] PCP - General 10/15/20 Giacomo Pereira MD [address] [place] [address] Transplant Physician Transplant Surgery 10/24/20 [place] [address] Surgical Navigator Transplant 10/24/20 Pam Fay RN [facility]MINISTRATION [address] [place] [address] Surgical Navigator Transplant Surgery 01/13/21 documented as of this encounter
--- OUTSIDE RECORDS SUMMARY | 2024-12-31 06:56 | XMS_ITS | Clinical Summary ---
Author Organization [facility] Address [address] [place] [address] Phone Care Team Providers Care Music Manager Name Role Phone Devan Lundberg NP Primary Care Provider [phone] Allergies Active Allergy Reactions Criticality Noted Date [...] with Macroplastique; Surgeon: Diana Burkett MD; Location: [facility] MAIN OR; Service: Urogynecology Medical devices from this surgery are in the Medical Devices section. Medical History Medical History Date Comments Allergic rhinitis due to pollen Shortness of breath Hypertension Hyperlipidemia Angina pectoris EVERY ONCE IN A WHILE. 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 USUALLY HAPPENS WITH OVEREXERTION OR ANXIETY. LAST [...] this topic Medical Devices Implanted Type Area Us Marketing Director Device Identifier Shelf Expiration Date Model / Serial / Lot Knee/Ankle Hardware Loop Recorder Drug Dermatologic 2.5ml Syr Adlt Macroplastique - [id number] Implanted:Qty: 1 on 09/06/2023 by Diana Burkett MD at [facility] N/A: [employer] 10/29/2024 MPQ-2.5 / / [id number] Drug Dermatologic 2.5ml Syr Adlt Macroplastique - [id number] Implanted:Qty: 1 on 09/06/2023 by Diana Burkett MD at [facility] N/A: [employer] 11/29/2024 MPQ-2.5 / / [id number] Insurance [employer] MEDICARE PPO [place] Member Subscriber Plan / Payer (Ef fective 2023-Present) Name:Betty Thrasher Relation to Subscriber:Self Name:Betty Thrasher Payer ID:Not on file Group ID:Not on file Type:Not on file Address: [address] [place] [id number] [facility] MEDICARE O MEDICAID [place] Care Teams Music Manager Relationship Specialty Start Date End Date Devan Lundberg NP [address] [place], [place] [address] PCP - General Nurse Practitioner-Family 08/09/23
--- OUTSIDE RECORDS SUMMARY | 2024-12-31 06:56 | XMS_ITS | Encounter Summary ---
Author Organization [facility] Address [address] [place] [address] Care Team Providers Care Supervisor Matrix Name Role Phone Lulu Noyola Primary Care Provider [phone] Giacomo Pereira MD Unavailable Eulalia Purvis Unavailable [phone] Pam Fay RN Unavailable [phone] Encounter Details Date Type Department Care Team (Late st Contact Info) Description 03/24/2019 [facility] OTTR Encounter Historical OTTR [address] [place] [address] [address] [id number] Social History Tobacco Use Types Packs/Day Years [...] - 03/24/2019 1:28 PM EDT LVM @ [phone] with 04/16/19 12:15 pm arrival time for labs/MBS/MRI requesting confirmation call. documented in this encounter Plan of Treatment Not on file documented as of this encounter Visit Diagnoses Not on filedocumented in this encounter Care Teams Supervisor Matrix Relationship Specialty Start Date End Date Lulu Noyola PA [address] [id number] PCP - General 10/15/20 Giacomo Pereira MD [address] [facility] [address] [place] [id number] Transplant Physician Transplant Surgery 10/24/20 [place] [address] Surgical Navigator Transplant 10/24/20 Pam Fay RN [facility]ISTR[facility] [address] [place] [address] Surgical Navigator Transplant Surgery 01/13/21 documented as of this encounter
--- OUTSIDE RECORDS SUMMARY | 2024-12-31 06:56 | XMS_ITS | Clinical Summary ---
Author Organization [facility] Address [address] [place] [address] Care Team Providers Care Clinical Application Specialist Name Role Phone Lulu Noyola Primary Care Provider [phone] Giacomo Pereira MD Unavailable Eulalia Purvis Unavailable [phone] Pam Fay RN Unavailable [phone] Allergies Active Allergy Reactions Criticality Noted Date Comments Captopril Hives,Rash,Unknown - Patient states they do not know rxn details Medium 07/06/2017 Rizatriptan Rash,Shortness of breath,Swelling High 07/30/2023 TONGUE SWELLED, REDNESS AND RASH Vibegron Rash High 07/30/2023 PAIN WITH 7 WITHOUT URINATION Medications aspirin (ASPIR) 81 MG EC tablet Take 1 tablet by mouth. Active estradiol (Estrace) 1 MG tablet TAKE ONE TABLET BY MOUTH EVERY DAY FOR hormone replacement 5 Active fluticasone (Flonase) 50 MCG/ACT nasal spray INSTILL 2 SPRAYS IN EACH NOSTRIL EVERY DAY 5 Active HYDROcodone-maia taminophen (Clatonia) 5-325 MG tablet TAKE ONE TABLET BY MOUTH EVERY DAY NEEDED FOR PAIN MAY CAUSE DROWSINESS 5 Active levothyroxine (Synthroid, Levoxyl) 50 MCG tablet Take 1 tablet by mouth daily. Active Linzess 72 MCG capsule capsule Take 1 capsule by mouth daily. 5 Active LORazepam (Ativan) 0.5 MG tablet Active budesonide-form oterol (Symbicort) 160-4.5 MCG/ACT inhaler Inhale 1 puff 2 times a day. Active omeprazole (PriLOSEC) [address] capsule Take 1 capsule by mouth daily. Active rosuvastatin (Crestor) 10 MG tablet Active topiramate 50 MG tablet Take 1 tablet by mouth 2 times a day. Active Encounters Date Type Department Care Team Description 12/30/2024 2:45 PM EDT Office Visit [facility] General Surgery [address] [place] [address] Dwayne Adame MD Pelvic floor dysfunction (Primary Dx) 12/30/2024 Travel 12/23/2024 Travel 10/03/2024 [facility] Practice [address] [place] [address] Lionel Correia MD Urinary incontinence, unspecified type (Primary Dx); Full incontinence of feces from Last 3 Months Family History Medical History Relation Name Comments Breast cancer Maternal Grandmother BETTY Anxiety disorder Other 1 Depression Other 2 Diabetes Other 3 Hypertension Other 4 Other cancer Other 5 Migraines Other 6 Heart attack Other 7 Relation Name Status Comments Father MULUGETA Maternal Grandfather UNKNOWN Unknown Maternal Grandmother BETTY Mother NU Other 1 Other 2 Other 3 Other 4 Other 5 Other 6 Other 7 Paternal Grandfather URI Paternal Grandmother JOE Marin. Social History Tobacco Use Types Packs/Day Years [...] Mass Index 15.24 12/30/2024 2:07 PM EDT Plan of Treatment Health Maintenance Due Date Last Done Comments [facility]-Bone Density Scan 1959 [facility]-Depression Screening 1959 [facility]-Hepatitis C Screening 1959 [facility]-Medicare Annual Wellness (AWV) 1959 [facility]-/Child/Adol SDOH Screenings 1959 [facility]- SDOH Screenings 1977 [facility]-Adult SDOH Screenings 1977 CT Colonography 02/29/2004 Colonoscopy 02/29/2004 FIT-DNA 02/29/2004 FIT 02/29/2004 FOBT 02/29/2004 Sigmoidoscopy 02/29/2004 [facility]-Colorectal Cancer Screening 02/29/2004 [facility]-Breast Cancer Screening 2009 [facility]-Zoster Vaccines (2 of 3) 01/07/2019 11/12/2018, 06/12/2018 [facility]-RSV Vaccine: 60+ Years or (1 - Risk 60-74 years 1-dose series) 2019 [id number] Vaccine (5 - Moderna risk 2023- season) 2024 02/12/2024, 05/18/2022, 07/04/2021, Additional history exists [facility]-Influenza Vaccine (#1) 02/02/202506/27, 03/30/2021, 04/13/2020, Additional history exists [facility]-DTaP,Tdap,and Td Vaccines (2 - Td or Tdap) 12/26/2028 12/26/2018 [facility]-Hepatitis A Vaccines Aged Out 06/12/2018 No [...] age to complete this topic Insurance [place]ID[place] AETNA MEDICARE Care Teams Clinical Application Specialist Relationship Specialty Start Date End Date Lulu Noyola PA [address] [place] [address] PCP - General 10/15/20 Giacomo Pereira MD [address] [place] [address] Transplant Physician Transplant Surgery 10/24/20 [place] [address] Surgical Navigator Transplant 10/24/20 Pam Fay RN [facility]MINISTRATION [address] [place] [address] Surgical Navigator Transplant Surgery 01/13/21
--- OUTSIDE RECORDS SUMMARY | 2024-12-31 06:56 | XMS_ITS | Encounter Summary ---
Author Organization [facility] Address [address] [place] [address] Care Team Providers Care Safe Deposit Box Rental Clerk Name Role Phone Lulu Noyola Primary Care Provider [phone] Giacomo Pereira MD Unavailable Eulalia Purvis Unavailable [phone] Pam Fay RN Unavailable [phone] Encounter Details Date Type Department Care Team (Late st Contact Info) Description 03/14/2019 [facility] OTTR Encounter Historical OTTR [address] [place] [address] ProviderArely MD [address] [place] [address] Social History Tobacco Use Types Packs/Day [...] DOS 04/16/2019 MRI Abdomen w wo contrast 50155 1. [facility] Medicare auth approved auth # [id number] valid dates 04/16/2019-05/16/2019 updating IAuth and nurse. documented in this encounter Plan of Treatment Not on file documented as of this encounter Visit Diagnoses Not on filedocumented in this encounter Care Teams Safe Deposit Box Rental Clerk Relationship Specialty Start Date End Date Lulu Noyola PA [address] [place] [address] PCP - General 10/15/20 Giacomo Pereira MD [address] [place] [address] Transplant Physician Transplant Surgery 10/24/20 [place] [address] Surgical Navigator Transplant 10/24/20 Pam Fay RN [facility] [address] [place] [address] Surgical Navigator Transplant Surgery 01/13/21 documented as of this encounter
--- NOTE | 2024-12-31 07:00 | NM_ITS ---
APPROVED REPORT Exam: Nuclear Stress Test Indication: Chest pain, SOB, Palpitations, Abnormal EKG, High cholesterol, Family history Patient Location: Outpatient Stress Tech: Zeinab Cooper [place] Tech:Flora Fu, ARRT, RT (R)(N) Ht: 5 ft 4 in Wt: 83 lbs Bra Size: A HR: 76 bpm BP: 111/64 mmHg BSA: 1.35 m2 TID: 0.97 BMI: 14.2 History: Chest pain, SOB, Palpitations, Abnormal EKG, High cholesterol, Family history Procedure: Patient received 0.4 mg of intravenous Lexiscan, resting heart rate 76 bpm, resting blood pressure 111/64 mmHg, with Lexiscan maximum heart rate achieved was 97 bpm which is % of the maximum predicted heart rate and blood pressure was 115/72 mmHg. With Lexiscan, patient denied any complaint of chest pain. Cardiac Stress and Resting SPECT Images: Cardiac Stress and Resting SPECT images were obtained using technetium 99m Myoview 31.5 mCi stress and 10.87 mCi at rest. Resting and stress imaging in supine and prone positions demonstrate a small sized, moderate, partially reversible perfusion defect in the LV apical wall. Gated imaging demonstrates normal global and regional LV systolic function. LVEF is calculated at 58%. Conclusion: Small sized, moderate, partially reversible perfusion defect in the LV apical wall. Findings are suggestive of partial reversible ischemia. Gated imaging demonstrates normal global and regional LV systolic function. LVEF is calculated at 58%. Electronically signed by : Makayla Love MD 12/31/2024 11:35:41
[2024-12-31] MEDS: SODIUM CHLORIDE 0.9% 10ML SYR (RAD ONLY) 10 ML IV ×2 (08:56)
[2024-12-31] MEDS: ISOTOPE MYOVIEW (PER STUDY) 1 DOSE IV (08:56)
--- NOTE | 2024-12-31 09:30 | CA_ITS ---
APPROVED REPORT EXAM: Comprehensive 2D, Doppler, and color-flow Echocardiogram Junior Electrical Engineer: Meggan Oakes, RT(R) Ht: 5 ft 4 in Wt: 85lbs BSA: 1.36 BP: 99/74 mmHg Indications: chest pain 2D Dimensions Left Atrium 2.13 cm F: 2.7 - 3.8 LVEF (Vasquez's) 58.60 % F: 54 - 74 LVOT 1.71 cm (M/F) 1.5-2.5 LV Volume 52.60 mL F: 46 - 106 LV Volume Index 38.7 mL/m2 F: 29 - 61 EF AP4 57.00 % EF AP2 60.0 % EF BP 58.6 % GL Strain -19.4 % M-Mode Dimensions RVDd 2.05 cm (0.9-2.6) LVDd 3.24 cm (3.5-5.7) Ao Diam 2.42 cm (2.0-3.7) LVDs 2.11 cm (3.5-5.7) IVSd 0.61 cm (0.6-1.1) PWd 0.52 cm (0.6-1.1) EF (Teich) 65.40% FS 34.90% EDV (Teich) 42.20 mL ESV (Teich) 14.60 mL LV Diastology E Decel Time 160 (160-240 msec) E/A Ratio 1.2 MED E' 6.5 (>= 7 cm/sec) E'/MED E' Ratio 14.82 (<= 14) LAT E' 9.4 (>= 10 cm/sec) E/LAT E' Ratio 10.24 (<= 14) Mitral Valve MV E Max Jose. 96.0 (40-130 cm/s) MV A Velocity 80.0 (40-130 cm/s) E/A Ratio 1.20 MV Decel. Time 160 (160-240 ms) Tricuspid Valve TR P. Velocity 198.00 cm/s Left Ventricle The left ventricle is normal size. The left ventricular systolic function is low normal. There is increased LV wall thickness. There is normal LV segmental wall motion. Diastolic function is indeterminate. LVEF is 50%. Right Ventricle The right ventricle is normal size. The right ventricular systolic function is normal. Atria The left atrium size is normal. The right atrium size is normal. There is no Doppler evidence of interatrial shunt. Aortic Valve Aortic valve is mildly thickened. There is no aortic valvular stenosis. Moderate aortic regurgitation. Mitral Valve The mitral valve is normal in structure. No evidence of mitral valve stenosis. Trace mitral regurgitation. Tricuspid Valve Tricuspid valve is grossly normal in structure and function. Mild tricuspid regurgitation. RVSP is 20-25 mmHg. Trace pulmonic regurgitation. Pulmonic Valve The pulmonary valve is normal in structure. Great Vessels The aortic root is normal in size. IVC is normal in size and collapses >50% with inspiration. Pericardium There is no pericardial effusion. Other Information Study Quality: Fair Conclusion Low normal LV systolic function (LVEF 50%). Moderate AI. Mild TR. Electronically signed by : Makayla Love MD 12/31/2024 20:06:05
== END 2024-12-31 23:59 | disposition home or self-care (01) ==
LOC: RAD 06:54
PROVIDERS: PCP Nurse Practitioner Family; Visit Provider Nurse Practitioner
DX: I08.2 Rheumatic disorders of both aortic and tricuspid valves (principal); R94.39 Abnormal result of other cardiovascular function study; E78.2 Mixed hyperlipidemia; I10 Essential (primary) hypertension; I25.10 Atherosclerotic heart disease of native coronary artery without angina pectoris; R55 Syncope and collapse
CPT/HCPCS: 78452; 93016; 93017; 93018; 93306; A9502; J2785

== ENCOUNTER 2025-01-02 09:07 | Outpatient (CLI) | payer MEDICARE, MEDICAID, SELFPAY ==
--- OUTSIDE RECORDS SUMMARY | 2024-12-30 14:45 | XMS_ITS | Encounter Summary ---
Author Organization [facility] Address [address] [place] [address] Care Team Providers Care Foundation Stage Teacher Name Role Phone Lulu Noyola Primary Care Provider [phone] Giacomo Pereira MD Unavailable Eulalia Purvis Unavailable [phone] Pam Fay RN Unavailable [phone] Reason for Referral * Imaging (Routine) - Pending Review Specialty Diagnoses / Procedures Referred By Contac t Referred To Contact Radiology Diagnoses Pelvic floor dysfunction Procedures MR Defecography MR Defecography Dwayne Adame MD [address] [facility] [address] [place] [address] Phone: tel: fax: Referral ID Status Reason Start Date Expiration Date V isits Requested Visits Authorized [id number] Pending Review 12/30/2024 07/01/2026 1 1 Reason for Visit * Reason Comments New Patient * Consultation (Routine) - Closed Specialty Diagnoses / Procedures Referred By Contac t Referred To Contact General, Endocrine & Minimally Invasive Surgery / General Surgery Diagnoses Incontinence of feces Lionel Correia MD [address] [place] [address] Phone: tel: fax: Referral ID Status Reason Start Date Expiration Date V isits Requested Visits Authorized [id number] Closed Specialty Services Required 10/08/2024 04/09/2026 1 1 Encounter Details Date Type Department Care Team (Late st Contact Info) Description 12/30/2024 2:45 PM EDT Office Visit [facility] General Surgery [address] [place] [address] Dwayne Adame MD [address] [place] [address] Pelvic floor dysfunction (Primary Dx) Social History Tobacco Use Types Packs/Day Years Used Date Smoking Tobacco: Never Passive Smoke Exposure: Never Smokeless Tobacco: Never Alcohol Use Standard Drinks/Week Comments Not Currently 0 (1 standard drink = 0.6 oz pure alcohol) Alcoholic Drinks/day: Rarely consumes alcohol AUDIT-C Answer Date Recorded Q1: How often do you have a drink containing alcohol? Never 12/30/2024 Q2: How many drinks containi ng alcohol do you have on a typical day when you are drinking? Patient does not drink Q3: How often do you have si x or more drinks on one occasion? Never 12/30/2024 Comments Unknown Sex and Gender Information Value Date Recorded Sex Assigned at Not on file Legal Sex Female 6:01 PM EDT Gender Identity Not on file Sexual Orientation Not on file documented as of this encounter Last Filed Vital Signs Vital Sign Reading Time Taken Comments Blood Pressure 115/73 12/30/2024 2:07 PM EDT Pulse 94 12/30/2024 2:07 PM EDT Temperature 36.4 C (97.5 F) 12/30/2024 2:07 PM EDT Respiratory Rate 16 12/30/2024 2:07 PM EDT Oxygen Saturation 99% 12/30/2024 2:07 PM EDT Inhaled Oxygen Concentration - - Weight 40.3 kg (88 lb 12.8 oz) 12/30/2024 2:07 P M EDT Height 162.6 cm (5' 4 ) 12/30/2024 2:07 PM EDT Body Mass Index 15.24 12/30/2024 2:07 PM EDT documented in this encounter Functional Status * AUDIT-C Score Answer Date of Assessment Author 0 12/30/2024 2:07 PM EDT Meggan Barger * Question Answer Date of Assessment Author Q1: How often do you have a drink containing alcohol? Never 12/30/2024 2:07 PM EDT Lupis Razo Q2: How many drinks containing alcohol do you have on a typical day when you are drinking? Patient does not drink 12/30/2024 2:07 PM EDT Meggan Razo Q3: How often do you have six or more drinks on one occasion? Never 12/30/2024 2:07 PM EDT Lupis Razo * Calculated C-SSRS Risk Score (Lifetime/Recent) Answer Date of Assessment Author No Risk Indicated 12/30/2024 2:07 PM EDT Meggan Johnson * Question Answer Date of Assessment Author 1. Wish to be (Past 1 Month) No 12/30/2024 2:07 PM EDT Lupis Razo 2. Non-Specific Active Suici braxton Thoughts (Past 1 Month) No 12/30/2024 2:07 PM EDT Angelica Razo 6. Suicidal Behavior (Lifetime) No 2:07 PM EDT Meggan Razo documented as of this encounter Plan of Treatment Scheduled Orders Name Type Priority Associated Diagnoses Orde r Schedule MR Defecography Imaging Routine Pelvic floor dysfunction Expected: 12/30/2024 (Approximate), Expires: 07/03/2026 documented as of this encounter Visit Diagnoses Diagnosis Pelvic floor dysfunction- Primary documented in this encounter Additional Health Concerns Assessment Noted Time A fall risk assessment has been complete d for the patient 12/30/2024 2:07 PM EDT documented as of this encounter Care Teams Foundation Stage Teacher Relationship Specialty Start Date End Date Lulu Noyola PA [address] [place] [address] PCP - General 10/15/20 Giacomo Pereira MD [address] [place] [address] Transplant Physician Transplant Surgery 10/24/20 [place] [address] Surgical Navigator Transplant 10/24/20 Pam Fay RN -TRANSPLANT ADMINISTRATION [address] [place] [address] Surgical Navigator Transplant Surgery 01/13/21 documented as of this encounter
--- OUTSIDE RECORDS SUMMARY | 2025-01-02 09:10 | XMS_ITS | Encounter Summary ---
Author Organization [facility] Address [address] [place] [address] Care Team Providers Care Boiler House Mechanic Name Role Phone Lulu Noyola Primary Care Provider [phone] Giacomo Pereira MD Unavailable Eulalia Purvis Unavailable [phone] Pam Fay RN Unavailable [phone] Encounter Details Date Type Department Care Team (Late st Contact Info) Description 02/11/2019 Legacy OTTR Encounter Historical OTTR [address] [place] [address] ProviderArely MD [address] [place] [address] Social History Tobacco Use Types Packs/Day [...] DOS 03/12/2019 MRI Abdomen w wo contrast 36333 1. [employer] Medicare auth approved auth # [id number] valid dates 03/12/2019-04/12/2019 documented in this encounter Plan of Treatment Not on file documented as of this encounter Visit Diagnoses Not on filedocumented in this encounter Care Teams Boiler House Mechanic Relationship Specialty Start Date End Date Lulu Noyola PA [address] [place] [address] PCP - General 10/15/20 Giacomo Pereira MD [address] [facility] [address] [place] [address] Transplant Physician Transplant Surgery 10/24/20 [place] [address] Surgical Navigator Transplant 10/24/20 Pam Fay RN [facility]PL[facility]MINISTRATION [address] [place] [address] Surgical Navigator Transplant Surgery 01/13/21 documented as of this encounter
--- OUTSIDE RECORDS SUMMARY | 2025-01-02 09:10 | XMS_ITS | Encounter Summary ---
Author Organization [facility] Address [address] [place] [address] Care Team Providers Care Secretary Board Of Commissioners Name Role Phone Lulu Noyola Primary Care Provider [phone] Giacomo Pereira MD Unavailable [address] Purvis Unavailable [phone] Pam Fay RN Unavailable [phone] Encounter Details Date Type Department Care Team [...] on filedocumented in this encounter Care Teams Secretary Board Of Commissioners Relationship Specialty Start Date End Date Lulu Noyola PA [address] [place] [address] PCP - General 10/15/20 Giacomo Pereira MD [address] [place] [address] Transplant Physician Transplant Surgery 10/24/20 [place] [address] Surgical Navigator Transplant 10/24/20 Pam Fay RN -TRANSPLANT ADMINISTRATION [address] [place] [address] Surgical Navigator Transplant Surgery 01/13/21 documented as of this encounter
--- OUTSIDE RECORDS SUMMARY | 2025-01-02 09:10 | XMS_ITS | Encounter Summary ---
Author Organization [facility] Address [address] [place] [address] Care Team Providers Care Power House Engineer Name Role Phone Lulu Noyola Primary Care Provider [phone] Giacomo Pereira MD Unavailable Eulalia Purvis Unavailable [phone] Pam Fay RN Unavailable [phone] Encounter Details Date Type Department Care Team (Late st Contact Info) Description 03/24/2019 Legacy OTTR Encounter Historical OTTR [address] [place] [address] Cordelia Haynes [place] [id number] Social History Tobacco Use Types Packs/Day Years [...] - 03/24/2019 1:28 PM EDT LVM @ [phone] with 04/16/19 12:15 pm arrival time for labs/MBS/MRI requesting confirmation call. documented in this encounter Plan of Treatment Not on file documented as of this encounter Visit Diagnoses Not on filedocumented in this encounter Care Teams Power House Engineer Relationship Specialty Start Date End Date Lulu Noyola PA [address] [place] [place] [phone] PCP - General 10/15/20 Giacomo Pereira MD [address] [facility] [address] [place] [phone] Transplant Physician Transplant Surgery 10/24/20 [place] [address] Surgical Navigator Transplant 10/24/20 Pam Fay RN [facility] [address] [place] [address] Surgical Navigator Transplant Surgery 01/13/21 documented as of this encounter
--- OUTSIDE RECORDS SUMMARY | 2025-01-02 09:10 | XMS_ITS | Encounter Summary ---
Author Organization [facility] Address [address] [place] [address] Care Team Providers Care Oncology Admin Name Role Phone Lulu Noyola Primary Care Provider [phone] Giacomo Pereira MD Unavailable Eulalia Purvis Unavailable [phone] Pam Fay RN Unavailable [phone] Encounter Details Date Type Department Care Team (Late st Contact Info) Description 03/13/2019 Legacy OTTR Encounter Historical OTTR [address] [place] [address] Cordelia Haynes [place] [id number] Social History Tobacco Use Types Packs/Day Years [...] - 03/13/2019 2:59 PM EDT LVM @ [phone] with 04/16/19 12:15 pm arrival time for labs/MBS/MRI requesting confirmation call. Appt schedule mailed. Note to for precert update on rescheduled MRI from 03/12/19. documented in this encounter Plan of Treatment Not on file documented as of this encounter Visit Diagnoses Not on filedocumented in this encounter Care Teams Oncology Admin Relationship Specialty Start Date End Date Lulu Noyola PA [address] [place] [address] PCP - General 10/15/20 Giacomo Pereira MD [address] [facility] [address] [place] [address] Transplant Physician Transplant Surgery 10/24/20 [place] [address] Surgical Navigator Transplant 10/24/20 Pam Fay, RN [facility] [address] [place] [address] Surgical Navigator Transplant Surgery 01/13/21 documented as of this encounter
--- OUTSIDE RECORDS SUMMARY | 2025-01-02 09:10 | XMS_ITS | Encounter Summary ---
Author Organization [facility] Address [address] [place] [address] Care Team Providers Care Deli Clerk Name Role Phone Lulu Noyola Primary Care Provider [phone] Giacomo Pereira MD Unavailable Eulalia Purvis Unavailable [phone] Pam Fay RN Unavailable [phone] Encounter Details Date Type Department Care Team (Latest Contact Info) Description 10/03/2024 [facility] [address] [place] [address] Lionel Correia MD [address] [place] [address] [place], [place] [id number] Urinary incontinence, unspecified type (Primary Dx); Full [...] feces documented in this encounter Care Teams Deli Clerk Relationship Specialty Start Date End Date Lulu Noyola PA [address] [place] [address] PCP - General 10/15/20 Giacomo Pereira MD [address] [address] Transplant Physician Transplant Surgery 10/24/20 [place] [address] Surgical Navigator Transplant 10/24/20 Pam Fay, RN [facility] [address] [place] [address] Surgical Navigator Transplant Surgery 01/13/21 documented as of this encounter
--- OUTSIDE RECORDS SUMMARY | 2025-01-02 09:10 | XMS_ITS | Encounter Summary ---
Author Organization [facility] Address [address] [place] [id number] Care Team Providers Care Planting Machine Crewman Name Role Phone Lulu Noyola Primary Care Provider [phone] Giacomo Pereira MD Unavailable Eulalia Purvis Unavailable [phone] Pam Fay RN Unavailable [phone] Encounter Details Date Type Department Care Team (Late st Contact Info) Description 03/12/2019 Legacy OTTR Encounter Historical OTTR [address] [place] [address] Eulalia Purvis [place] [id number] Social History Tobacco Use Types Packs/Day Years [...] on filedocumented in this encounter Care Teams Planting Machine Crewman Relationship Specialty Start Date End Date Lulu Noyola PA [address] [place] [address] PCP - General 10/15/20 Giacomo Pereira MD [address] [place] [address] Transplant Physician Transplant Surgery 10/24/20 [place] [address] Surgical Navigator Transplant 10/24/20 Pam Fay RN [facility] [address] [place] [address] Surgical Navigator Transplant Surgery 01/13/21 documented as of this encounter
--- OUTSIDE RECORDS SUMMARY | 2025-01-02 09:10 | XMS_ITS | Encounter Summary ---
Author Organization [facility] Address [address] [place] [address] Care Team Providers Care Reefer Truck Driver Name Role Phone Lulu Noyola Primary Care Provider [phone] Giacomo Pereira MD Unavailable Eulalia Purvis Unavailable [phone] Pam Fay RN Unavailable [phone] Encounter Details Date Type Department Care [...] documented as of this encounter Care Teams Reefer Truck Driver Relationship Specialty Start Date End Date Lulu Noyola PA [address] [place] [address] PCP - General 10/15/20 Giacomo Pereria MD [address] [place] [address] Transplant Physician Transplant Surgery 10/24/20 [place] [address] Surgical Navigator Transplant 10/24/20 Pam Fay RN [facility] [address] [place] [address] Surgical Navigator Transplant Surgery 01/13/21 documented as of this encounter
--- OUTSIDE RECORDS SUMMARY | 2025-01-02 09:10 | XMS_ITS | Encounter Summary ---
Author Organization [facility] Address [address] [place] [id number] Care Team Providers Care Surface Supply Breathing Apparatus Name Role Phone Lulu Noyola Primary Care Provider [phone] Giacomo Pereira MD Unavailable Eulalia Purvis Unavailable [phone] Pam Fay RN Unavailable [phone] Encounter Details Date Type Department Care Team (Late st Contact Info) Description 03/18/2018 Legacy OTTR Encounter Historical OTTR [address] [place] [address] Pam Fay, RN [facility] [address] [place] [address] Social History Tobacco Use Types Packs/Day Years [...] hours. Auth can be obtained by calling [phone] ref # [id number]. * Progress Notes - Pam Fay RN [...] lesions. Pt. needs MRI liver protocol at [facility], should not be performed elsewhere and [...] reminder. Note to TH for US precert [id number]. * Progress Notes - Pam Fay RN [...] 2:44 PM EDT Radiology reports [facility] * Progress Notes - Enriqueta Villarreal - 01/16/2018 9:59 AM EDT CD images received from [facility] - downloaded to PACS. * Progress [...] EDT Faxed request for cd images to [facility] for fedex priority shipping. Records received fromChaitanya Rose's office - saved in [facility]. * Progress Notes - Leyda Villarrealecca E - 01/14/2018 3:32 PM EDT Surgical referral from Mitzy Rose to [facility] - 57 yo woman with multiple liver lesions. Called referring office - spoke to Luana, requested records - Luana will fax these tomorrow when she has the chart. Ms Thrasher was seen by Chaitanya Rose at the specialty clinic in [place] - that clinic does not have any [...] on filedocumented in this encounter Care Teams Surface Supply Breathing Apparatus Relationship Specialty Start Date End Date Lulu Noyola PA [address] [place] [address] PCP - General 10/15/20 Giacomo Pereira MD [address] [place] [address] Transplant Physician Transplant Surgery 10/24/20 [place] [address] Surgical Navigator Transplant 10/24/20 Pam Fay RN [facility] [address] [place], [place] [address] Surgical Navigator Transplant Surgery 01/13/21 documented as of this encounter
--- OUTSIDE RECORDS SUMMARY | 2025-01-02 09:10 | XMS_ITS | Encounter Summary ---
Author Organization [facility] Address [address] [place] [id number] Care Team Providers Care Airplane Tester Name Role Phone Lulu Noyola Primary Care Provider [phone] Giacomo Pereira MD Unavailable Eulalia Purvis Unavailable [phone] Pam Fay RN Unavailable [phone] Encounter Details Date Type Department Care Team (Late st Contact Info) Description 11/26/2018 Legacy OTTR Encounter Historical OTTR [address] [place] [address] [place] [address] Social History Tobacco Use Types Packs/Day Years [...] on filedocumented in this encounter Care Teams Airplane Tester Relationship Specialty Start Date End Date Lulu Noyola PA [address] [place] [address] PCP - General 10/15/20 Giacomo Pereira MD [address] [place] [address] Transplant Physician Transplant Surgery 10/24/20 [place] [address] Surgical Navigator Transplant 10/24/20 Pam Fay RN [facility] [address] [place] [address] Surgical Navigator Transplant Surgery 01/13/21 documented as of this encounter
--- OUTSIDE RECORDS SUMMARY | 2025-01-02 09:10 | XMS_ITS | Encounter Summary ---
Author Organization [facility] Address [address] [place] [address] Care Team Providers Care Belt Knife Feeder Name Role Phone Lulu Noyola Primary Care Provider [phone] Giacomo Pereira MD Unavailable Eulalia Purvis Unavailable [phone] Pam Fay RN Unavailable [phone] Encounter Details Date Type Department Care Team (Late st Contact Info) Description 03/14/2019 Legacy OTTR Encounter Historical OTTR [address] [place] [address] ProviderArely MD [address] [place] [address] Social History Tobacco Use Types Packs/Day [...] DOS 04/16/2019 MRI Abdomen w wo contrast [address] [facility] Medicare auth approved auth # [id number] valid dates 04/16/2019-05/16/2019 updating IAuth and nurse. documented in this encounter Plan of Treatment Not on file documented as of this encounter Visit Diagnoses Not on filedocumented in this encounter Care Teams Belt Knife Feeder Relationship Specialty Start Date End Date Lulu Noyola PA [address] [place] [address] PCP - General 10/15/20 Giacomo Pereira MD [address] [place] [address] Transplant Physician Transplant Surgery 10/24/20 [place] [address] Surgical Navigator Transplant 10/24/20 Pam Fay RN [facility] [address] [place] [address] Surgical Navigator Transplant Surgery 01/13/21 documented as of this encounter
--- OUTSIDE RECORDS SUMMARY | 2025-01-02 09:10 | XMS_ITS | Clinical Summary ---
Author Organization [facility] Address [address] [place] [address] Care Team Providers Care Artificial Flowers Starcher Name Role Phone Lulu Noyola Primary Care Provider [phone] Giacomo Pereira MD Unavailable Eulalia Purvis Unavailable [phone] Pma Fay RN Unavailable [phone] Allergies Active Allergy Reactions Criticality Noted [...] NOSTRIL EVERY DAY 5 Active HYDROcodone-maia taminophen ([place]) 5-325 MG tablet TAKE ONE TABLET BY [...] Description 12/30/2024 2:45 PM EDT Office Visit [facility] General Surgery [address] [place] [address] Dwayne Adame MD Pelvic floor dysfunction (Primary Dx) 12/30/2024 Travel 12/23/2024 Travel 10/03/2024 [facility] [address] [place] [address] Lionel Correia MD Urinary incontinence, unspecified type [...] Screening 1959 [facility]-Medicare Annual Wellness (AWV) 1959 [facility]-Infant/Child/Adol SDOH Screenings 1959 [facility]- SDOH Screenings 1977 [facility]-Adult SDOH Screenings 1977 CT Colonography 02/29/2004 Colonoscopy 02/29/2004 FIT-DNA 02/29/2004 FIT 02/29/2004 FOBT 02/29/2004 Sigmoidoscopy 02/29/2004 [facility]-Colorectal Cancer Screening 02/29/2004 [facility]-Breast Cancer Screening 2009 [facility]-Zoster Vaccines (2 of 3) 01/07/2019 11/12/2018, 06/12/2018 [facility]-RSV Vaccine: 60+ Years or (1 - Risk 60-74 years 1-dose series) 2019 ALC-CEGNK-15 Vaccine (5 - Moderna risk 2023- season) [...] topic Insurance [place] AET[place] MEDIC[place] Care Teams Artificial Flowers Starcher Relationship Specialty Start Date End Date Lulu Noyola PA [address] [place] [address] PCP - General 10/15/20 Giacomo Pereira MD [address] [place] [address] Transplant Physician Transplant Surgery 10/24/20 [place] [address] Surgical Navigator Transplant 10/24/20 Pam Fay RN [facility] [address] [place] [address] Surgical Navigator Transplant Surgery 01/13/21
--- OUTSIDE RECORDS SUMMARY | 2025-01-02 09:10 | XMS_ITS | Clinical Summary ---
Author Organization [facility] Address [address] [place] [phone] Phone Care Team Providers Care Licensed Tax Consultant Name Role Phone Devan Lundberg NP Primary Care Provider [phone] Allergies Active Allergy Reactions Criticality Noted Date [...] with Macroplastique; Surgeon: Diana Burkett MD; Location: [facility] MAIN OR; Service: Urogynecology Medical devices from this surgery are in the Medical Devices section. Medical History Medical History Date Comments Allergic rhinitis due to pollen Shortness of breath Hypertension Hyperlipidemia Angina pectoris EVERY ONCE IN A WHILE. 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 USUALLY HAPPENS WITH OVEREXERTION OR ANXIETY. LAST [...] this topic Medical Devices Implanted Type Area Molder Floor Device Identifier Shelf Expiration Date Model / Serial / Lot Knee/Ankle Hardware Loop Recorder Drug Dermatologic 2.5ml Syr Adlt Macroplastique - [id number] Implanted:Qty: 1 on 09/06/2023 by Diana Burkett MD at [facility] N/A: Ureth[employer] 10/29/2024 MPQ-2.5 / / [id number] Drug Dermatologic 2.5ml Syr Adlt Macroplastique - [id number] Implanted:Qty: 1 on 09/06/2023 by Diana Burkett MD at [facility] N/A: Urethra [employer] 11/29/2024 MPQ-2.5 / / [id number] Insurance [employer] MEDICARE PPO MR MEDICAID [facility] MEDICARE O [place]ICAID [place] Care Teams Licensed Tax Consultant Relationship Specialty Start Date End Date Devan Lundberg NP [address] [place] [address] PCP - General Nurse Practitioner-Family 08/09/23
--- NOTE | 2025-01-02 09:30 | FL_ITS ---
FINAL REPORT CLINICAL HISTORY: evaluation and treat R thyroid removed 2004, dysphagia 2.41 min DAP 298.44 FINDINGS: ESOPHAGRAM HISTORY: Dysphagia. PROCEDURE: The patient ingested barium. Effervescent crystals were also administered. Fluoro time: 2 minutes 41 seconds DAP: 298.44 uGy.m2 FINDINGS: There is short segment narrowingof the distal esophagus just above the gastroesophageal junction. A 13 mm barium tablet passes throend of the stomach without delay. No hiatal hernias identified. No gastroesophageal reflux was demonstrated during the exam. Esophageal dysmotility was demonstrated during the exam. IMPRESSION: Narrowing of the distal esophagus just above the gastroesophageal junction with irregular mucosa. Endoscopic correlation recommended. Esophageal dysmotility. Reviewed, Interpreted and Dictated by Samina Stevens MD Transcribed by MARK Curiel Authenticated and [facility]
[2025-01-02] MEDS: E-Z-GASII EFFERVESCENT GRANULES;1PK 1 EACH PO (09:49)
[2025-01-02] MEDS: BARIUM SULFATE (E-Z-HD 340GM);135ML BOTTLE 135 ML PO (09:49)
[2025-01-02] MEDS: BARIUM SULFATE(LIQUID E-Z-PAQUE);355ML BOTTLE 355 ML PO (09:49)
--- NOTE | 2025-01-02 10:30 | US_ITS ---
FINAL REPORT TECHNIQUE: Limited sonographic images of the thyroid were obtained. CLINICAL HISTORY: repeat us to f/u COMPARISON: 10/16/2022 FINDINGS: The right thyroid is absent. The isthmus measures 2 mm. The left thyroid measures 2.6 x 0.9 x 0.7 cm. No concerning nodules identified. The previously identified hypoechoic nodule is not present on today's exam. IMPRESSION: Unremarkable left thyroid lobe. Right thyroid lobe is absent. Reviewed, Interpreted and Dictated by Samina Stevens MD Transcribed by Rajwinder Hoyos Authenticated and [facility]
== END 2025-01-02 23:59 | disposition home or self-care (01) ==
LOC: RAD 09:08
PROVIDERS: PCP Nurse Practitioner Family; Visit Provider Nurse Practitioner
DX: K22.89 Other specified disease of esophagus (principal); R93.3 Abnormal findings on diagnostic imaging of other parts of digestive tract; E89.0 Postprocedural hypothyroidism; R13.10 Dysphagia, unspecified; R09.A2 Foreign body sensation, throat; Z85.850 Personal history of malignant neoplasm of thyroid
CPT/HCPCS: 74220; 76536

== ENCOUNTER 2025-01-26 09:00 | Outpatient (POV) | payer MEDICARE, MEDICAID, SELFPAY ==
--- OUTSIDE RECORDS SUMMARY | 2024-12-30 14:45 | XMS_ITS | Encounter Summary ---
Author Organization [facility] Address [address] [place] [address] Care Team Providers Care Hydroelectric Station Chief Name Role Phone Lulu Noyola Primary Care Provider [phone] Giacomo Pereira MD Unavailable Eulalia Purvis Unavailable [phone] Pam Fay RN Unavailable [phone] Reason for Referral * Imaging (Routine) - Pending Review Specialty Diagnoses / Procedures Referred By Contac t Referred To Contact Radiology Diagnoses Pelvic floor dysfunction Procedures MR Defecography MR Defecography Dwayne Adame MD [address] [facility] [address] [place] [address] Phone: tel: fax: Referral ID Status Reason Start Date Expiration Date V isits Requested Visits Authorized [id number] Pending Review 12/30/2024 07/01/2026 1 1 Reason for Visit * Reason Comments New Patient * Consultation (Routine) - Closed Specialty Diagnoses / Procedures Referred By Contac t Referred To Contact General, Endocrine & Minimally Invasive Surgery / General Surgery Diagnoses Incontinence of feces Lionel Correia MD [address] [place] [address] Phone: tel: fax: Referral ID Status Reason Start Date Expiration Date V isits Requested Visits Authorized [id number] Closed Specialty Services Required 10/08/2024 04/09/2026 1 1 Encounter Details Date Type Department Care Team (Late st Contact Info) Description 12/30/2024 2:45 PM EDT Office Visit [facility] General Surgery [address] [place] [address] Dwayne Adame MD [address] [place] [address] Pelvic floor dysfunction (Primary Dx) [...] Notes * Progress Notes - Nubia Carrasquillo, BREAST TRIMMER, DNP - 12/30/2024 2:45 PM EDT [facility] Colon & Rectal Surgery 12/30/2024 Chief [...] does not follow with a urologist or violin restorer. She has previously seen a physical therapist at [facility] but has limited income and can't make it to [place] regularly for therapy. She has been using [...] does not follow with a urologist or violin restorer. She has previously seen a physical therapist at [facility] but has limited income and can't make it to [place] regularly for therapy. She has been using [...] documented as of this encounter Care Teams Hydroelectric Station Chief Relationship Specialty Start Date End Date Lulu Noyola PA [address] [facility] [place] [address] PCP - General 10/15/20 Giacomo Pereira MD [address] [place] [address] Transplant Physician Transplant Surgery 10/24/20 [place] [address] Surgical Navigator Transplant 10/24/20 Pam Fay RN [facility]PL[facility] ADMINISTRATION [address] [place] [address] Surgical Navigator Transplant Surgery 01/13/21 documented as of this encounter
--- NOTE | 2025-01-26 09:27 | A.OFFVIS_ITS ---
[facility] Disclaimer: The information contained in this section may have been updated after the patient was seen, as this information can be updated by other users. Medical History History of thyroid cancer Globus sensation Mixed hyperlipidemia Implantable loop recorder present Asthma Encounter for loop recorder at end of battery life Bilateral hearing loss Allergic rhinitis Dyspnea on exertion Multiple lung nodules on CT History of COPD History of asthma Erosion of vaginal mesh Incontinence in female Urinary urgency ABRAM (stress urinary incontinence, female) Postmenopausal atrophic vaginitis Dysphagia Frequent headaches Pulmonary nodules Hoarseness Angina pectoris Fatigue Edema of both lower extremities Numbness of tongue Dizziness Abnormal electrocardiogram [ECG] [EKG] Tachycardia Sepsis Osteopenia Anemia Chronic pain disorder Dyspnea Family history of colon cancer Lumbar disc disease with radiculopathy Primary osteoarthritis of both feet Acquired equinus deformity of both feet Lumbar disc disease with radiculopathy Migraine headache Constipation Daytime somnolence Snoring Restless sleeper Paroxysmal SVT (supraventricular tachycardia) Liver lesion Lumbar disc disease with radiculopathy Hormone replacement therapy (HRT) Syncope Depression Hypothyroidism GERD (gastroesophageal reflux disease) Anxiety Surgical History (Updated 01/08/25 @ 10:09 by Daphney Oneal MA) Hx of LASIK H/O section H/O melanoma excision Hx of partial thyroidectomy History of thyroidectomy History of cholecystectomy Hx of appendectomy H/O: hysterectomy S/P cubital tunnel release History of resection of rib History of surgery on lower extremity Family History Other Asthma Cancer Diabetes Hyperlipidemia Hypertension Stroke Thyroid disorder Tuberculosis Social History Smoking Status: Former smoker second hand exposure: No alcohol intake: never substance use type: denies use current occupational status: other Travel in the last 8 weeks?: None household members: spouse housing: house current occupational exposures/hazards: No caffeine: Yes Have you lived/traveled outside US in past 30 days?: No Contact w/someone who lives/traveled outside US past 30 days?: No Exposure to someone with infectious disease in past 14 days?: No Do you have a fever (greater than 100.4 F or 38 C)?: No Have you tested positive for COVID-19?: No Exposed to someone with COVID-19 in past 14 days?: No Do you have a sore throat?: No Do you have a cough?: No Do you have any weakness?: No Do you have any diarrhea?: No Are you experiencing any unusual bleeding?: No Do you have any muscle aches/pain?: No Do you have any abdominal pain?: No Are you experiencing loss of taste or smell?: No PM Subjective & Objective Subjective Subjective:: Patient is a pleasant 64-year-old female who presents today for worsening right knee pain. She rates it a 3 out of 10 while she is seated however does state it goes to a 5 or more with ambulation. Patient states that is still that same pain we have been treating her for with significant numbness in and around the knee. Patient does state that it is interfering with her ability perform activities of daily living such as cooking and cleaning. Patient did previously have her first right infrapatellar nerve block in November that did provide 80% relief and worked well for nearly 2 months. Patient does state that she would like to see about getting back in for a repeat injection as that is the been the best it is felt for years. Her Daniele has been reviewed and is appropriate. Review of Systems: General: No recent weight changes, no fever, no sleep disturbances Respiratory: No cough, no shortness of air, no recurring pulmonary infections Cardiovascular/peripheral vascular: No chest pain, no palpitations, no edema, no shortness of breath Gastrointestinal: No new onset incontinence, normal bowel movements reported Genitourinary: No new onset incontinence Musculoskeletal: Right knee pain/numbness Psychiatric: [Normal mood/affect] Neurological: [Denies weakness in extremities], [denies balance issues] Pain at rest (0-10 scale): 5 Objective Objective:: Physical Exam: General: Alert and oriented x3, no acute distress, pleasant and cooperative Lungs: Respirations even and unlabored, symmetrical chest expansion Eyes: PERRL Musculoskeletal: Flexion and extension of right knee somewhat guarded secondary to pain, [antalgic gait noted] Neurological: Speech clear, no gross sensory deficit Has patient had previous pain injection?: No Conservative treatment options previously tried: Home exercise plan Length of treatment: Longer than 12 weeks Meds Home Medications and Allergies Home Medications ?Medication ?Instructions ?Recorded ?Confirmed ?Type aspirin 81 mg tablet,delayed 81 mg PO DAILY heart heal #90 05/07/23 01/08/25 Rx release tabs budesonide-formoterol HFA 160 1 puff inhalation BID 90 days 03/04/24 01/08/25 Rx mcg-4.5 mcg/actuation aerosol #10.2 grams inhaler (Symbicort) estradiol 1 mg tablet See Rx Instructions .Route 0 09/02/24 01/08/25 Rx .COMPLEX #90 tabs rosuvastatin 10 mg tablet See Rx Instructions .Route 0 09/09/24 01/08/25 Rx .COMPLEX #90 tabs levothyroxine 50 mcg tablet See Rx Instructions .Route 11/03/24 01/08/25 Rx .COMPLEX #30 tabs topiramate 50 mg tablet See Rx Instructions .Route 0 11/19/24 01/08/25 Rx .COMPLEX #60 tabs linaclotide 72 mcg capsule See Rx Instructions .Route 12/16/24 01/08/25 Rx (Linzess) .COMPLEX #90 caps omeprazole 40 mg capsule,delayed 40 mg PO DAILY #30 ca ps 12/25/24 01/08/25 Rx release hydrocodone 5 mg-acetaminophen 325 1 tab PO DAILY PRN pain 30 days 01/02/25 01/08/25 Rx mg tablet #30 tabs lorazepam 0.5 mg tablet 0.5 mg PO DAILY PRN anxiety #30 01/02/25 01/08/25 Rx tabs fluticasone propionate 50 See Rx Instructions .Route 0 01/06/25 01/08/25 Rx mcg/actuation nasal .COMPLEX #16 grams spray,suspension New Prescriptions to Start Prescriptions: Allergies Allergy/AdvReac Type Severity Reaction Status Date / Time rizatriptan Allergy Severe Anaphylaxis Verified 01/08/25 10:06 captopril Allergy Mild Hives Verified 01/08/25 10:06 vibegron (From Gemtesa) Allergy Rash Verified 01/08/25 10:06 Assessment and Plan *Assessment and plan (1) Right knee pain: Status: Acute Category: Medical Code(s): M25.561 - Pain in right knee Plan Patient is experiencing worsening pain and numbness in her right knee with limited range of motion. I did discuss with her the risk and benefits of repeat infrapatellar nerve block. Patient would like to proceed forward with this plan of care. Patient has continued conservative therapy including oral medication, heat and ice, topicals, at home stretching exercise for longer than 12 weeks. Patient did get 80% relief lasting 2 months with her last infrapatellar nerve block. We will resubmit for repeat right infrapatellar nerve block without fluoroscopic or ultrasound guidance. Patient has been instructed to contact the clinic with any concerns before the next appointment. Dr. Liz has reviewed this note and agrees with this plan of care. This note was dictated using voice recognition software and make contain errors or omissions. All injections are used with Lidocaine, Bupivacaine and dexamethasone. Occasionally urine drug screen is needed to verify patient's compliance with our office pain contract. This is ordered based off specific treatments related to chronic pain with the potential to abuse certain medications.
--- OUTSIDE RECORDS SUMMARY | 2025-01-26 09:40 | XMS_ITS | Encounter Summary ---
Author Organization Healthcare Address [address] [place] [address] Care Team Providers Care Medical Records Secretary Name Role Phone Lulu Noyola Primary Care Provider [phone] Giacomo Pereira MD Unavailable Eulalia Purvis Unavailable [phone] Pam Fay RN Unavailable [phone] Encounter Details Date Type Department Care Team [...] on filedocumented in this encounter Care Teams Medical Records Secretary Relationship Specialty Start Date End Date Lulu Noyola PA [address] [place] [address] PCP - General 10/15/20 Giacomo Pereira MD [address] [place] [address] Transplant Physician Transplant Surgery 10/24/20 [place] [address] Surgical Navigator Transplant 10/24/20 Pam Fay RN -TRANSPLANT ADMINISTRATION [address] [place] [address] Surgical Navigator Transplant Surgery 01/13/21 documented as of this encounter
--- OUTSIDE RECORDS SUMMARY | 2025-01-26 09:40 | XMS_ITS | Encounter Summary ---
Author Organization [facility] Address [address] [place] [id number] Care Team Providers Care Titrator Name Role Phone Lulu Noyola Primary Care Provider [phone] Giacomo Pereira MD Unavailable Eulalia Purvis Unavailable [phone] Pam Fay RN Unavailable [phone] Encounter Details Date Type Department Care Team (Late st Contact Info) Description 03/12/2019 [facility] OTTR Encounter Historical OTTR [address] [place] [address] Eulalia Purvis [place] [id number] Social History Tobacco Use Types Packs/Day Years [...] on filedocumented in this encounter Care Teams Titrator Relationship Specialty Start Date End Date Lulu Noyola PA [address] [place] [address] PCP - General 10/15/20 Giacomo Pereira MD [address] [place] [address] Transplant Physician Transplant Surgery 10/24/20 [place] [address] Surgical Navigator Transplant 10/24/20 Pam Fay RN CH-[facility]PL[facility] ADMINISTRATION [address] [place] [address] Surgical Navigator Transplant Surgery 01/13/21 documented as of this encounter
--- OUTSIDE RECORDS SUMMARY | 2025-01-26 09:40 | XMS_ITS | Clinical Summary ---
Author Organization [facility] Address [address] [place] [address] Care Team Providers Care Aircraft Engine Installer Name Role Phone Lulu Noyola Primary Care Provider [phone] Giacomo Pereira MD Unavailable Eulalia Purvis Unavailable [phone] Pam Fay RN Unavailable [phone] Allergies Active Allergy Reactions Criticality Noted [...] NOSTRIL EVERY DAY 5 Active HYDROcodone-maia taminophen ([employer]) 5-325 MG tablet TAKE ONE TABLET BY [...] Description 12/30/2024 2:45 PM EDT Office Visit [facility] General Surgery [address], [address] [place] [phone] Dwayne Adame MD Pelvic floor dysfunction (Primary Dx) 12/30/2024 Travel 12/23/2024 Travel from Last 3 Months Family History Medical [...] - Risk 60-74 years 1-dose series) 2019 [id number] Vaccine (5 - Moderna risk 2023- season) [...] topic Insurance [place] [employer] MEDICARE Care Teams Aircraft Engine Installer Relationship Specialty Start Date End Date Lulu Noyola PA [address] [place] [address] PCP - General 10/15/20 Giacomo Pereira MD [address] [facility] [address] [place] [phone] Transplant Physician Transplant Surgery 10/24/20 [place] [address] Surgical Navigator Transplant 10/24/20 Pam Fay, RN -TRANSPLANT ADMINISTRATION [address] [place] [address] Surgical Navigator Transplant Surgery 01/13/21
--- OUTSIDE RECORDS SUMMARY | 2025-01-26 09:40 | XMS_ITS | Encounter Summary ---
Author Organization [facility] Address [address] [place] [address] Care Team Providers Care Silk Screen Etcher Name Role Phone Lulu Noyola Primary Care Provider [phone] Giacomo Pereira MD Unavailable Eulalia Purvis Unavailable [phone] Pam Fay RN Unavailable [phone] Encounter Details Date Type Department Care Team (Late st Contact Info) Description 02/11/2019 [facility] OTTR Encounter Historical OTTR [address] [place] [address] [address] [place] [address] Social History Tobacco Use Types Packs/Day [...] DOS 03/12/2019 MRI Abdomen w wo contrast [id number] 1. [facility] Medicare auth approved auth # [id number] valid dates 03/12/2019-04/12/2019 documented in this encounter Plan of Treatment Not on file documented as of this encounter Visit Diagnoses Not on filedocumented in this encounter Care Teams Silk Screen Etcher Relationship Specialty Start Date End Date Lulu Noyola PA [address] [place] [address] PCP - General 10/15/20 Giacomo Pereira MD [address] [place] [phone] Transplant Physician Transplant Surgery 10/24/20 [place] [address] Surgical Navigator Transplant 10/24/20 Pam Fay RN CH-[facility]PL[facility]MINISTRATION [address] [place] [address] Surgical Navigator Transplant Surgery 01/13/21 documented as of this encounter
--- OUTSIDE RECORDS SUMMARY | 2025-01-26 09:40 | XMS_ITS | Encounter Summary ---
Author Organization [facility] Address [address] [place] [address] Care Team Providers Care Molded Parts Inspector Name Role Phone Lulu Noyola Primary Care Provider [phone] Giacomo Pereira MD Unavailable Eulalia Purvis Unavailable [phone] Pma Fay RN Unavailable [phone] Encounter Details Date Type Department Care [...] documented as of this encounter Care Teams Molded Parts Inspector Relationship Specialty Start Date End Date Lulu Noyola PA [address] [facility] [place] [address] PCP - General 10/15/20 Giacomo Pereira MD [address] [place] [phone] Transplant Physician Transplant Surgery 10/24/20 [place] [address] Surgical Navigator Transplant 10/24/20 Pam Fay, RN [facility]PL[facility]MINISTRATION [address] [place] [address] Surgical Navigator Transplant Surgery 01/13/21 documented as of this encounter
--- OUTSIDE RECORDS SUMMARY | 2025-01-26 09:40 | XMS_ITS | Encounter Summary ---
Author Organization [facility] Address [address] [place] [address] Care Team Providers Care Frit Maker Name Role Phone Lulu Noyola Primary Care Provider Giacomo Pereira MD Unavailable Eulalia Purvis Unavailable [phone] Pam Fay RN Unavailable [phone] Encounter Details Date Type Department Care Team (Latest Contact Info) Description 10/03/2024 [facility] [address] [place] [address] Lionel Correia MD [address] [place] [address] [place], [place] [id number] Urinary incontinence, unspecified type (Primary Dx); Full [...] feces documented in this encounter Care Teams Frit Maker Relationship Specialty Start Date End Date Lulu Noyola PA [address] [place] [address] PCP - General 10/15/20 Giacomo Pereira MD [address] [address] Transplant Physician Transplant Surgery 10/24/20 [place] [address] Surgical Navigator Transplant 10/24/20 Pam Fay, RN [facility]MINISTR[facility] [address] [place] [address] Surgical Navigator Transplant Surgery 01/13/21 documented as of this encounter
--- OUTSIDE RECORDS SUMMARY | 2025-01-26 09:40 | XMS_ITS | Encounter Summary ---
Author Organization [facility] Address [address] [place] [address] Care Team Providers Care Arts [employer] Humanities Council Director Name Role Phone Lulu Noyola Primary Care Provider [phone] Giacomo Pereira MD Unavailable Eulalia Purvis Unavailable [phone] Pam Fay RN Unavailable [phone] Encounter Details Date Type Department Care Team (Late st Contact Info) Description 03/24/2019 [facility] OTTR Encounter Historical OTTR [address] [place] [address] Cordelia [address]nes [place] [id number] Social History Tobacco Use Types Packs/Day Years [...] - 03/24/2019 1:28 PM EDT LVM @ [phone] with 04/16/19 12:15 pm arrival time for labs/MBS/MRI requesting confirmation call. documented in this encounter Plan of Treatment Not on file documented as of this encounter Visit Diagnoses Not on filedocumented in this encounter Care Teams [employer] Director Relationship Specialty Start Date End Date Lulu Noyola PA [address] [place] [phone] PCP - General 10/15/20 Giacomo Pereira MD [address] [place] [facility] [address] [place] [phone] Transplant Physician Transplant Surgery 10/24/20 [place] [address] Surgical Navigator Transplant 10/24/20 Pam Fay RN [facility]-TR[facility]PLANT ADMINISTRATION [address] [place] [address] Surgical Navigator Transplant Surgery 01/13/21 documented as of this encounter
--- OUTSIDE RECORDS SUMMARY | 2025-01-26 09:40 | XMS_ITS | Encounter Summary ---
Author Organization [facility] Address [address] [place] [address] Care Team Providers Care Sql Ssis Developer Name Role Phone Luul Noyola Primary Care Provider [phone] Giacomo Pereira MD Unavailable Eulalia Purvis Unavailable [phone] Pam Fay RN Unavailable [phone] Encounter Details Date Type Department Care Team (Late st Contact Info) Description 03/14/2019 [facility] OTTR Encounter Historical OTTR [address] [place] [address] Provider, Arely [address] [place] [address] Social History Tobacco Use Types Packs/Day [...] DOS 04/16/2019 MRI Abdomen w wo contrast [id number] 1. [facility] Medicare auth approved auth # [id number] valid dates 04/16/2019-05/16/2019 updating IAuth and nurse. documented in this encounter Plan of Treatment Not on file documented as of this encounter Visit Diagnoses Not on filedocumented in this encounter Care Teams Sql Ssis Developer Relationship Specialty Start Date End Date Lulu Noyola PA [address] [place] [address] PCP - General 10/15/20 Giacomo Pereira MD [address] [place] [address] Transplant Physician Transplant Surgery 10/24/20 [place] [address] Surgical Navigator Transplant 10/24/20 Pam Fay RN CH-TRANSPLANT ADMINISTRATION [address] [place] [address] Surgical Navigator Transplant Surgery 01/13/21 documented as of this encounter
--- OUTSIDE RECORDS SUMMARY | 2025-01-26 09:41 | XMS_ITS | Encounter Summary ---
Author Organization [facility] Address [address] [place] [address] Care Team Providers Care Bottom Sprayer Name Role Phone Lulu Noyola Primary Care Provider [phone] Giacomo Pereira MD Unavailable Eulalia Purvis Unavailable [phone] Pam Fay RN Unavailable [phone] Encounter Details Date Type Department Care Team (Late st Contact Info) Description 03/13/2019 [facility] OTTR Encounter Historical OTTR [address] [place] [address] Cordelia Haynes [place] [phone] Social History Tobacco Use Types Packs/Day Years [...] - 03/13/2019 2:59 PM EDT LVM @ [phone] with 04/16/19 12:15 pm arrival time for labs/MBS/MRI requesting confirmation call. Appt schedule mailed. Note to for precert update on rescheduled MRI from 03/12/19. documented in this encounter Plan of Treatment Not on file documented as of this encounter Visit Diagnoses Not on filedocumented in this encounter Care Teams Bottom Sprayer Relationship Specialty Start Date End Date Lulu Noyola PA [address] [place] [address] PCP - General 10/15/20 Giacomo Pereira MD [address] [facility] [address] [place] [address] Transplant Physician Transplant Surgery 10/24/20 [place] [address] Surgical Navigator Transplant 10/24/20 Pam Fay, RN CH-TRANSPLANT ADMINISTRATION [address] [place] [address] Surgical Navigator Transplant Surgery 01/13/21 documented as of this encounter
--- OUTSIDE RECORDS SUMMARY | 2025-01-26 09:42 | XMS_ITS | Encounter Summary ---
Author Organization [facility] Address [address] [place] [phone] Care Team Providers Care Outside Salesman Name Role Phone Lulu Noyola Primary Care Provider [phone] Giacomo Pereira MD Unavailable Eulalia Purvis Unavailable [phone] Pam Fay RN Unavailable [phone] Encounter Details Date Type Department Care Team (Late st Contact Info) Description 11/26/2018 [facility] OTTR Encounter Historical OTTR [address] [place] [address] [place] [address] Social History Tobacco Use Types Packs/Day Years [...] 03/12/19 6:30 am arrival time w/ Ms. Thrasehr. Appt reminder mailed Note to for MRI precert documented in this encounter Plan of Treatment Not on file documented as of this encounter Visit Diagnoses Not on filedocumented in this encounter Care Teams Outside Salesman Relationship Specialty Start Date End Date Lulu Noyola PA [address] [place] [address] PCP - General 10/15/20 Giacomo Pereria MD [address] [place] [address] Transplant Physician Transplant Surgery 10/24/20 [place] [address] Surgical Navigator Transplant 10/24/20 Pam Fay RN CH-TRANSPLANT ADMINISTRATION [address] [place] [address] Surgical Navigator Transplant Surgery 01/13/21 documented as of this encounter
--- OUTSIDE RECORDS SUMMARY | 2025-01-26 09:42 | XMS_ITS | Encounter Summary ---
Author Organization [facility] Address [address] [phone] Care Team Providers Care Table Operator Name Role Phone Lulu Noyola Primary Care Provider [phone] Giacomo Pereira MD Unavailable Eulalia Purvis Unavailable [phone] Pam Fay RN Unavailable [phone] Encounter Details Date Type Department Care Team (Late st Contact Info) Description 03/18/2018 [facility] OTTR Encounter Historical OTTR [address] [place] [address] Pam Fay, RN CH-TRANSPL[facility] ADMINISTRATION [address] [place] [address] Social History Tobacco Use Types Packs/Day Years [...] hours. Auth can be obtained by calling [phone] ref # [id number]. * Progress Notes - Pam Fay RN [...] Pt. needs MRI liver protocol at [facility], should not be performed elsewhere and needs [...] reminder. Note to TH for US precert [id number]. * Progress Notes - Pam Fay RN [...] 2:44 PM EDT Radiology reports received [facility] * Progress Notes - Enriqueta Villarreal - 01/16/2018 9:59 AM EDT CD images received from [facility] - downloaded to PACS. * Progress Notes - Arely Hernandez MD - 01/15/2018 3:01 PM EDT Pt. called back, scheduled for ICE on 01/23; labs @ 1pm, visit aminata Pereira @ 1:40pm. Pt. confirmed. Mailed ICE ppw. Faxed Mtizy Rose's office notifying of appt. * Progress Notes - Arely Hernandez MD - 01/15/2018 2:47 PM EDT Called pt. LVM asking for call back to schedule ICE. * Progress Notes - Enriqueta Villarreal - 01/15/2018 1:54 PM EDT Faxed request for cd images to [facility] for fedex priority shipping. Records received fromChaitanya Rose's office - saved in [facility]. * Progress Notes - Leyda Villarrealecca E - 01/14/2018 3:32 PM EDT Surgical referral from Mitzy Rose to [facility] - 57 yo woman with multiple liver lesions. Called referring office - spoke to Luana, requested records - Luana will fax these tomorrow when she has the chart. Ms Thrasher was seen by Chaitanya Rose at the specialty clinic in [place] - that clinic does not have any [...] Interface us Historical Provider LAB BLOOD ORDERABLES Final R esult EXTERNAL LAB documented in this encounter Visit Diagnoses Not on filedocumented in this encounter Care Teams Table Operator Relationship Specialty Start Date End Date Lulu Noyola PA [address] [place] [address] PCP - General 10/15/20 Giacomo Pereira MD [address] [place] [phone] Transplant Physician Transplant Surgery 10/24/20 [place] [address] Surgical Navigator Transplant 10/24/20 Pam Fay RN [facility]PL[facility] ADMINISTRATION [address] [place] [address] Surgical Navigator Transplant Surgery 01/13/21 documented as of this encounter
[2025-01-26 09:59] VITALS: BP 126/84; PULSE 85; RESP 18; O2SAT 100; BMI 14.2
== END 2025-01-26 23:59 | disposition home or self-care (01) ==
LOC: SC.PAIN 09:01
PROVIDERS: PCP Nurse Practitioner Family; Visit Provider Nurse Practitioner Family
DX: M25.561 Pain in right knee (principal)
CPT/HCPCS: 99212; G0463

== ENCOUNTER 2025-02-11 09:43 | Outpatient (CLI) | payer MEDICARE, MEDICAID, SELFPAY ==
--- OUTSIDE RECORDS SUMMARY | 2024-12-30 14:45 | XMS_ITS | Encounter Summary ---
Author Organization [facility] Address [address] [place] [address] Care Team Providers Care Talent Acquisition Operations Manager Name Role Phone Lulu Noyola Primary Care Provider [phone] Giacomo Pereira MD Unavailable Eulalia Purvis Unavailable [phone] Pam Fay RN Unavailable [phone] Reason for Referral * Imaging (Routine) - Pending Review Specialty Diagnoses / Procedures Referred By Contac t Referred To Contact Radiology Diagnoses Pelvic floor dysfunction Procedures MR Defecography MR Defecography Dwayne Adame MD [address] [facility] [address] [place] [address] Phone: tel: fax: Referral ID Status Reason Start Date Expiration Date V isits Requested Visits Authorized [id number] Pending Review 12/30/2024 07/01/2026 1 1 Reason for Visit * Reason Comments New Patient * Consultation (Routine) - Closed Specialty Diagnoses / Procedures Referred By Contac t Referred To Contact General, Endocrine & Minimally Invasive Surgery / General Surgery Diagnoses Incontinence of feces Lionel Correia MD [address] [place] [address] Phone: tel: fax: Referral ID Status Reason Start Date Expiration Date V isits Requested Visits Authorized [id number] Closed Specialty Services Required 10/08/2024 04/09/2026 1 1 Encounter Details Date Type Department Care Team (Late st Contact Info) Description 12/30/2024 2:45 PM EDT Office Visit [facility] General Surgery [address] [place] [address] Dwayne Adame MD [address] [place] [address] Pelvic floor dysfunction (Primary Dx) [...] Meggan Razo documented as of this encounter Miscellaneous Notes * Progress Notes - Nubia Carrasquillo, RELATIONSHIP SPECIALIST, DNP - 12/30/2024 2:45 PM EDT [facility] Colon & Rectal Surgery 12/30/2024 Chief Complaint: incontinence HPI: Betty Thrasher is a 64 y.o. female with a history of stress incontinence with bladder tacking with subsequent mesh excision, endometriosis with uterine cancer s/p MAX, migraines, vaginal discharge, OAB, thyroid cancer and diverticulitis. She presents today with concern for incontinence and abdominal pain. She reports she can't tell if it is urinary or fecal incontinence but is often largevolume. She doesn't think she noticed any difference in her pain with the bladder tacking or after mesh removal. She reports that she had a pain pump removed but they weren't able to remove the wiresas part of it was fused to her spine. After they tied the wires, she did notice a slight improvement in her pain but it has not ever been relieved. She had ongoing lower abdominal pain in waves and feels like a baby kicking inside her. She often feels bloated and has intermittent vomiting. She denies blood in her stools and since being on Linzess, usually moves her bowels daily but notes they have not moved in 2 days and she is very uncomfortable. She endorses urgency, frequency, and incomplete emptying. She has not taken anything besides the linzess to improve her pain. She does not follow with a urologist or airplane gastank liner assembler. She has previously seen a physical therapist at [facility] but has limited income and can't make it to [place] regularly for therapy. She has been using you tube videos that were recommended by PT and these have helped some over the last few months. She is adamantly opposed to an ostomy if it were to come to that. She just wants some relief. ROS: A complete 14 point review of systems was done with the patient. These are all negative with the exception of what is noted in the HPI. Past Medical History: has a past medical history of Hyperlipidemia, Personal history of other malignant neoplasm of skin,and Thyroid cancer (CMS/HCC). Past Surgical History: has a past surgical history that includes Submandibular gland excision w/ parotid duct ligation (N/A); Cholecystectomy (N/A); Bladder surgery (N/A); Hysterectomy (N/A); section, low transverse (N/A); LASIK (N/A); Other surgical history (N/A); Thyroidectomy, partial (Right); and MOHS Surgery. Family History: family history includes Anxiety disorder in an other family member; Breast cancer in her maternal grandmother; Depression in an other family member; Diabetes in an other family member; Heart attack in an other family member; Hypertension in an other family member; Migraines in an other family member; Other cancer in an other family member. No history of colorectal neoplasms. No history of IBD. History on file reviewed and it is otherwise noncontributory. Social History: Social History[1] Physical Exam: Vitals: 12/30/24 1407 BP: 115/73 Pulse: 94 Resp: 16 Temp: 36.4 ??C (97.5 ??F) SpO2: 99% Body mass index is 15.24 kg/m??. GEN: NAD HEENT: NCAT, EOMI RESP: Equal bilateral chest rise, normal work of breathing CV: RRR, appears well perfused ABD: Soft, nontender, nondistended EXT: No gross deformities MSK: Full ROM in BL UE NEURO: No focal deficits, AOx3 PSYCH: Normal mood and affect PERIANAL/PERINEUM: n/a RACHEL: n/a No recent labs or imaging available. Assessment/Plan Betty Thrasher is a 64 y.o. female with a history of stress incontinence with bladder tacking with subsequent mesh excision, endometriosis with uterine cancer s/p MAX, migraines, vaginal discharge, OAB, thyroid cancer and diverticulitis. She presents today with concern for incontinence and abdominal pain. She reports she can't tell if it is urinary or fecal incontinence but is often largevolume. She doesn't think she noticed any difference in her pain with the bladder tacking or after mesh removal. She reports that she had a pain pump removed but they weren't able to remove the wiresas part of it was fused to her spine. After they tied the wires, she did notice a slight improvement in her pain but it has not ever been relieved. She had ongoing lower abdominal pain in waves and feels like a baby kicking inside her. She often feels bloated and has intermittent vomiting. She denies blood in her stools and since being on Linzess, usually moves her bowels daily but notes they have not moved in 2 days and she is very uncomfortable. She endorses urgency, frequency, and incomplete emptying. She has not taken anything besides the linzess to improve her pain. She does not follow with a urologist or airplane gastank liner assembler. She has previously seen a physical therapist at [facility] but has limited income and can't make it to [place] regularly for therapy. She has been using you tube videos that were recommended by PT and these have helped some over the last few months. She is adamantly opposed to an ostomy if it were to come to that. She just wants some relief. Concern for pelvic floor dysfunction vs evacuation dysfunction. Based on presentation, it is possible there is an anterior prolapse which is causing her symptoms. MR defecography Follow up after MRI obtained. Problem List Items Addressed This Visit None Bowel and bladder dysfunction Nubia Carrasquillo APRN, DNP [1] Social History Tobacco Use Smoking status: Never Passive exposure: Never Smokeless tobacco: Never Vaping Use Vaping status: Never Used Substance Use Topics Alcohol use: Not Currently Comment: Alcoholic Drinks/day: Rarely consumes alcohol Drug use: Never Cosigned by Dwayne Adame MD at 01/05/2025 3:19 PM EDT Associated attestation - Dwayne Adame MD - 01/05/2025 3:19 PM EDT I attest to being involved in more than half the total time in patient care. Ms. Thrasher is a 64-year-old female with reported fecal and urinary incontinence. Lengthy discussion completed regarding pelvic floor. PLAN FOLLOWS: MR defecography. documented in this encounter Plan of Treatment Scheduled Orders [...] for the patient 12/30/2024 2:07 PM EDT A Body Mass Index follow-up plan has been documented for the patient 01/05/2025 3:20 PM EDT documented as of this encounter Care Teams Talent Acquisition Operations Manager Relationship Specialty Start Date End Date Lulu Noyola PA [address] [facility] [place] [address] PCP - General 10/15/20 Giacomo Pereira MD [address] [place] [address] Transplant Physician Transplant Surgery 10/24/20 [place] [address] Surgical Navigator Transplant 10/24/20 Pam Fay RN [facility]ISTR[facility] [address] [place] [address] Surgical Navigator Transplant Surgery 01/13/21 documented as of this encounter
--- OUTSIDE RECORDS SUMMARY | 2025-02-11 09:47 | XMS_ITS | Clinical Summary ---
Author Organization [facility] [place] Address [address] [place] [address] Phone Care Team Providers Care Hand Compositor Name Role Phone Devan Lundberg NP Primary Care Provider [phone] Allergies Active Allergy Reactions Criticality Noted Date [...] WHILE. NOT FOR A LONG TIME SEES INCOME TAX ANALYST. USUALLY HAPPENS WITH OVEREXERTION OR ANXIETY. LAST [...] Zoster (2 of 3) 01/07/2019 11/12/2018, 06/12/2018 Bone Density Screening 02/29/2024 COVID-19 Vaccine ( season) 2025 05/18/2022, 07/04/2021, 05/23/2021 Influenza Vaccine (#1) 2025 , 03/30/2021, 04/13/2020, Additional history exists DTaP/TDaP/Td (2 - Td or Tdap) 12/26/2028 12/26/2018 Pneumococcal Vaccine 50+ Completed 08/17/2022, 10/03 Hepatitis B Vaccine Aged Out No longe r eligible based on patient's age to complete this topic Meningococcal B Vaccine Aged Out No l onger eligible based on patient's age to complete this topic Medical Devices Implanted Type Area Plastic Cablemaking Machine Operator Device Identifier Shelf Expiration Date Model / Serial / Lot Knee/Ankle Hardware Loop Recorder Drug Dermatologic 2.5ml Syr Adlt Macroplastique - [id number] Implanted:Qty: 1 on 09/06/2023 by Diana Burkett MD at [facility] N/A: Urethra UR[employer] 10/29/2024 MPQ-2.5 / / [id number] Drug Dermatologic 2.5ml Syr Adlt Macroplastique - [id number] Implanted:Qty: 1 on 09/06/2023 by Diana Burkett MD at [facility] N/A: Urethra UR[employer] 11/29/2024 MPQ-2.5 / / [id number] Insurance HUMANA MEDICARE PPO MR MEDICAID [place] [facility] MEDICARE [place] Care Teams Hand Compositor Relationship Specialty Start Date End Date Devan Lundberg NP [address] [place] [address] PCP - General Nurse Practitioner-Family 08/09/23
--- OUTSIDE RECORDS SUMMARY | 2025-02-11 09:47 | XMS_ITS | Encounter Summary ---
Author Organization [facility] Address [address] [place] [address] Care Team Providers Care Prepress Operator Name Role Phone Lulu Noyola Primary Care Provider [phone] Giacomo Pereira MD Unavailable Eulalia Purvis Unavailable [phone] Pam Fay RN Unavailable [phone] Encounter Details Date Type Department Care Team (Late st Contact Info) Description 02/11/2019 Legacy OTTR Encounter Historical OTTR [address] [place] [address] [address] [place] [address] Social History Tobacco Use Types Packs/Day [...] DOS 03/12/2019 MRI Abdomen w wo contrast 55340 1. [facility] Medicare auth approved auth # [id number] valid dates 03/12/2019-04/12/2019 documented in this encounter Plan of Treatment Not on file documented as of this encounter Visit Diagnoses Not on filedocumented in this encounter Care Teams Prepress Operator Relationship Specialty Start Date End Date Lulu Noyola PA [address] [place] [address] PCP - General 10/15/20 Giacomo Pereira MD [address] [place] [address] Transplant Physician Transplant Surgery 10/24/20 [place] [address] Surgical Navigator Transplant 10/24/20 Pam Fay RN [facility] [address] [place] [address] Surgical Navigator Transplant Surgery 01/13/21 documented as of this encounter
--- OUTSIDE RECORDS SUMMARY | 2025-02-11 09:47 | XMS_ITS | Encounter Summary ---
Author Organization [facility] Address [address] [place] [address] Care Team Providers Care Research Instrumentation Technician Name Role Phone Lulu Noyola Primary Care Provider [phone] Giacomo Pereira MD Unavailable Eulalia Purvis Unavailable [phone] Pam Fay RN Unavailable [phone] Encounter Details Date Type Department Care Team [...] on filedocumented in this encounter Care Teams Research Instrumentation Technician Relationship Specialty Start Date End Date Luul Noyola PA [address] [place] [address] PCP - General 10/15/20 Giacomo Pereira MD [address] [place] [address] Transplant Physician Transplant Surgery 10/24/20 [place] [address] Surgical Navigator Transplant 10/24/20 Pam Fay RN -TRANSPLANT ADMINISTRATION [address] [place] [address] Surgical Navigator Transplant Surgery 01/13/21 documented as of this encounter
--- OUTSIDE RECORDS SUMMARY | 2025-02-11 09:47 | XMS_ITS | Clinical Summary ---
Author Organization [facility] Address [address] [place] [address] Care Team Providers Care Rubber Cutter Name Role Phone Lulu Noyola Primary Care Provider [phone] Giacomo Pereira MD Unavailable Eulalia Purvis Unavailable [phone] Pam Fay RN Unavailable [phone] Allergies Active Allergy Reactions Criticality Noted [...] NOSTRIL EVERY DAY 5 Active HYDROcodone-maia taminophen ([place]) 5-325 MG tablet TAKE ONE TABLET BY [...] Description 12/30/2024 2:45 PM EDT Office Visit [facility] General Surgery [address], [address] [place] [address] Dwayne Adame MD Pelvic floor dysfunction (Primary [...] - Risk 60-74 years 1-dose series) 2019 [id number] Vaccine (5 - Moderna risk 2023- season) 2025 02/12/2024, 05/18/2022, 07/04/2021, Additional history exists UKY-Influenza [...] topic Insurance [place] AETNA MEDICARE Care Teams Rubber Cutter Relationship Specialty Start Date End Date Lulu Noyola PA [address] [place] [address] PCP - General 10/15/20 Giacomo Pereira MD [address] [facility] [address] [place] [phone] Transplant Physician Transplant Surgery 10/24/20 [place] [address] Surgical Navigator Transplant 10/24/20 Pam Fay, RN -TRANSPLANT ADMINISTRATION [address] [place] [address] Surgical Navigator Transplant Surgery 01/13/21
--- OUTSIDE RECORDS SUMMARY | 2025-02-11 09:47 | XMS_ITS | Encounter Summary ---
Author Organization [facility] Address [address] [place] [address] Care Team Providers Care Microchip Specialist Name Role Phone Lulu Noyola Primary Care Provider Giacomo Pereira MD Unavailable Eulalia Purvis Unavailable [phone] Pam Fay RN Unavailable [phone] Encounter Details Date Type Department Care Team (Latest Contact Info) Description 10/03/2024 Community [facility] [address] [place] [address] Lionel Correia MD [address] [place], [place] [id number] Urinary incontinence, unspecified type (Primary Dx); Full [...] feces documented in this encounter Care Teams Microchip Specialist Relationship Specialty Start Date End Date Lulu Noyola PA [address] [place] [address] PCP - General 10/15/20 Giacomo Pereira MD [address] [address] Transplant Physician Transplant Surgery 10/24/20 [place] [address] Surgical Navigator Transplant 10/24/20 Pam Fay, RN [facility]-TRANSPLANT ADMINISTRATION [address] [place] [address] Surgical Navigator Transplant Surgery 01/13/21 documented as of this encounter
--- OUTSIDE RECORDS SUMMARY | 2025-02-11 09:47 | XMS_ITS | Encounter Summary ---
Author Organization [facility] Address [address] [place] [address] Care Team Providers Care Artificial Limb Maker Name Role Phone Lulu Noyola Primary Care Provider [phone] Giacomo Pereira MD Unavailable Eulalia Purvis Unavailable [phone] Pam Fay RN Unavailable [phone] Encounter Details Date Type Department Care [...] documented as of this encounter Care Teams Artificial Limb Maker Relationship Specialty Start Date End Date Lulu Noyola PA [address] [facility] [place] [address] PCP - General 10/15/20 Giacomo Pereira MD [address] [place] [phone] Transplant Physician Transplant Surgery 10/24/20 [place] [address] Surgical Navigator Transplant 10/24/20 Pam Fay, RN [facility]PLANT ADMINISTRATION [address] [place] [address] Surgical Navigator Transplant Surgery 01/13/21 documented as of this encounter
--- OUTSIDE RECORDS SUMMARY | 2025-02-11 09:47 | XMS_ITS | Encounter Summary ---
Author Organization [facility] Address [address] [place] [address] Care Team Providers Care Avionics Systems Engineer Name Role Phone Lulu Noyola Primary Care Provider [phone] Giacomo Pereira MD Unavailable Eulalia Purvis Unavailable [phone] Pam Fay RN Unavailable [phone] Encounter Details Date Type Department Care Team (Late st Contact Info) Description 03/24/2019 Legacy OTTR Encounter Historical OTTR [address] [place] [address] Cordelia Haynes [place] [id number] Social History Tobacco Use Types Packs/Day Years [...] - 03/24/2019 1:28 PM EDT LVM @ [phone] with 04/16/19 12:15 pm arrival time for labs/MBS/MRI requesting confirmation call. documented in this encounter Plan of Treatment Not on file documented as of this encounter Visit Diagnoses Not on filedocumented in this encounter Care Teams Avionics Systems Engineer Relationship Specialty Start Date End Date Lulu Noyola PA [address] [place] [phone] PCP - General 10/15/20 Giacomo Pereira MD [address] [facility] [address] [place] [phone] Transplant Physician Transplant Surgery 10/24/20 [place] [address] Surgical Navigator Transplant 10/24/20 Pam Fay RN CH-TRANSPLANT ADMINISTRATION [address] [place] [address] Surgical Navigator Transplant Surgery 01/13/21 documented as of this encounter
--- OUTSIDE RECORDS SUMMARY | 2025-02-11 09:47 | XMS_ITS | Encounter Summary ---
Author Organization [facility] Address [address] [place] [address] Care Team Providers Care Boat Engine Mechanic Name Role Phone Lulu Noyola Primary Care Provider [phone] Giacomo Pereira MD Unavailable Eulalia Purvis Unavailable [phone] Pam Fay RN Unavailable [phone] Encounter Details Date Type Department Care Team (Late st Contact Info) Description 03/14/2019 Legacy OTTR Encounter Historical OTTR [address] [place] [address] Provider, Arely [address] [place] [address] Social History Tobacco Use Types Packs/Day [...] DOS 04/16/2019 MRI Abdomen w wo contrast 74060 1. [facility] Medicare auth approved auth # [id number] valid dates 04/16/2019-05/16/2019 updating IAuth and nurse. documented in this encounter Plan of Treatment Not on file documented as of this encounter Visit Diagnoses Not on filedocumented in this encounter Care Teams Boat Engine Mechanic Relationship Specialty Start Date End Date Lulu Noyola PA [address] [place] [address] PCP - General 10/15/20 Giacomo Pereira MD [address] [place] [address] Transplant Physician Transplant Surgery 10/24/20 [place] [address] Surgical Navigator Transplant 10/24/20 Pam Fay RN CH-TRANSPLANT ADMINISTRATION [address] [place] [address] Surgical Navigator Transplant Surgery 01/13/21 documented as of this encounter
--- OUTSIDE RECORDS SUMMARY | 2025-02-11 09:47 | XMS_ITS | Encounter Summary ---
Author Organization [facility] Address [address] [place] [id number] Care Team Providers Care Honey Extractor Name Role Phone Lulu Noyola Primary Care Provider [phone] Giacomo Pereira MD Unavailable Eulalia Purvis Unavailable [phone] Pam Fay RN Unavailable [phone] Encounter Details Date Type Department Care Team (Late st Contact Info) Description 03/12/2019 Legacy OTTR Encounter Historical OTTR [address] [place] [address] Eullaia Purvis [place] [id number] Social History Tobacco Use Types Packs/Day Years [...] on filedocumented in this encounter Care Teams Honey Extractor Relationship Specialty Start Date End Date Lulu Noyola PA [address] [place] [address] PCP - General 10/15/20 Giacomo Pereira MD [address] [place] [address] Transplant Physician Transplant Surgery 10/24/20 [place] [address] Surgical Navigator Transplant 10/24/20 Pam Fay RN CH-TRANSPLANT ADMINISTRATION [address] [place] [address] Surgical Navigator Transplant Surgery 01/13/21 documented as of this encounter
--- OUTSIDE RECORDS SUMMARY | 2025-02-11 09:47 | XMS_ITS | Encounter Summary ---
Author Organization [facility] Address [address] [place] [address] Care Team Providers Care Work Counselor Name Role Phone Lulu Noyola Primary Care Provider [phone] Giacomo Pereira MD Unavailable Eulalia Purvis Unavailable [phone] Pam Fay RN Unavailable [phone] Encounter Details Date Type Department Care Team (Late st Contact Info) Description 03/13/2019 Legacy OTTR Encounter Historical OTTR [address] [place] [address] Cordelia Haynes [place] [id number] Social History Tobacco Use Types Packs/Day Years [...] - 03/13/2019 2:59 PM EDT LVM @ [phone] with 04/16/19 12:15 pm arrival time for labs/MBS/MRI requesting confirmation call. Appt schedule mailed. Note to for precert update on rescheduled MRI from 03/12/19. documented in this encounter Plan of Treatment Not on file documented as of this encounter Visit Diagnoses Not on filedocumented in this encounter Care Teams Work Counselor Relationship Specialty Start Date End Date Lulu Noyola PA [address] [place] [address] PCP - General 10/15/20 Giacomo Pereira MD [address] [facility] [address] [place] [address] Transplant Physician Transplant Surgery 10/24/20 [place] [address] Surgical Navigator Transplant 10/24/20 Pam Fay, RN CH-TRANSPLANT ADMINISTRATION [address] [place] [address] Surgical Navigator Transplant Surgery 01/13/21 documented as of this encounter
--- OUTSIDE RECORDS SUMMARY | 2025-02-11 09:48 | XMS_ITS | Encounter Summary ---
Author Organization [facility] Address [address] [place] [id number] Care Team Providers Care Inletter Name Role Phone Lulu Noyola Primary Care Provider [phone] Giacomo Pereira MD Unavailable Eulalia Purvis Unavailable [phone] Pam Fay RN Unavailable [phone] Encounter Details Date Type Department Care Team (Late st Contact Info) Description 03/18/2018 Legacy OTTR Encounter Historical OTTR [address] [place] [address] Pam Fay, RN CH-TRANSPLANT ADMINISTRATION [address] [place] [address] Social History Tobacco Use Types Packs/Day Years [...] hours. Auth can be obtained by calling [phone] ref # [id number]. * Progress Notes - Pam Fay RN [...] lesions. Pt. needs MRI liver protocol at [facility], should not be performed elsewhere and [...] reminder. Note to TH for US precert [id number]. * Progress Notes - Pam Fay RN [...] 2:44 PM EDT Radiology reports received from [facility] * Progress Notes - Enriqueta Villarreal - 01/16/2018 9:59 AM EDT CD images received from [facility] - downloaded to PACS. * Progress [...] EDT Faxed request for cd images to [facility] for fedex priority shipping. Records received fromChaitanya Rose's office - saved in [facility]. * Progress Notes - Leyda Villarrealecca E - 01/14/2018 3:32 PM EDT Surgical referral from Mitzy Rose to [facility] - 57 yo woman with multiple liver lesions. Called referring office - spoke to Luana, requested records - Luana will fax these tomorrow when she has the chart. Ms Thrasher was seen by Chaitanya Rose at the specialty clinic in [place] - that clinic does not have any [...] on filedocumented in this encounter Care Teams Inletter Relationship Specialty Start Date End Date Lulu Noyola PA [address] [place] [address] PCP - General 10/15/20 Giacomo Pereira MD [address] [place] [phone] Transplant Physician Transplant Surgery 10/24/20 [place] [address] Surgical Navigator Transplant 10/24/20 Pam Fay RN CH-TRANSPLANT ADMINISTRATION [address] [place] [address] Surgical Navigator Transplant Surgery 01/13/21 documented as of this encounter
--- OUTSIDE RECORDS SUMMARY | 2025-02-11 09:48 | XMS_ITS | Encounter Summary ---
Author Organization [facility] Address [address] [place] [phone] Care Team Providers Care Substation Inspector Name Role Phone Lulu Noyola Primary Care Provider [phone] Giacomo Pereira MD Unavailable Eulalia Purvis Unavailable [phone] Pam Fay RN Unavailable [phone] Encounter Details Date Type Department Care Team (Late st Contact Info) Description 11/26/2018 Legacy OTTR Encounter Historical OTTR [address] [place] [address] [place] [address] Social History Tobacco Use Types Packs/Day Years [...] on filedocumented in this encounter Care Teams Substation Inspector Relationship Specialty Start Date End Date Lulu Noyola PA [address] [place] [address] PCP - General 10/15/20 Giacomo Pereira MD [address] [place] [address] Transplant Physician Transplant Surgery 10/24/20 [place] [address] Surgical Navigator Transplant 10/24/20 Pam Fay RN CH-TRANSPLANT ADMINISTRATION [address] [place] [address] Surgical Navigator Transplant Surgery 01/13/21 documented as of this encounter
[2025-02-11 10:10] VITALS: PULSE 71; PULSE 75
[2025-02-11] MEDS: ALBUTEROL 0.083% 2.5 MG/3 ML NEB IH (10:10)
== END 2025-02-11 23:59 | disposition home or self-care (01) ==
LOC: RT 09:43
PROVIDERS: PCP Nurse Practitioner Family; Visit Provider Internal Medicine Pulmonary Disease
DX: J44.9 Chronic obstructive pulmonary disease, unspecified (principal); R94.2 Abnormal results of pulmonary function studies
CPT/HCPCS: 94010; 94618; 94640

== ENCOUNTER → 2025-02-19 06:31 | Outpatient (CLI) | payer MEDICARE, MEDICAID, SELFPAY ==
--- OUTSIDE RECORDS SUMMARY | 2024-12-30 14:45 | XMS_ITS | Encounter Summary ---
Author Organization [facility] Address [address] [place] [address] Care Team Providers Care Melt House Drag Operator Name Role Phone Lulu Noyola Primary Care Provider [phone] Giacmoo Pereira MD Unavailable Eulalia Purvis Unavailable [phone] Pam Fay RN Unavailable [phone] Reason for Referral * Imaging (Routine) - Pending Review Specialty Diagnoses / Procedures Referred By Contmary kay t Referred To Contact Radiology Diagnoses Pelvic floor dysfunction Procedures MR Defecography MR Defecography Dwayne Adame MD [address] [facility] [address] [place] [address] Phone: tel: fax: Referral ID Status Reason Start Date Expiration Date V isits Requested Visits Authorized [id number] Pending Review 12/30/2024 07/01/2026 1 1 Reason for Visit * Reason Comments New Patient * Consultation (Routine) - Closed Specialty Diagnoses / Procedures Referred By Buck t Referred To Contact General, Endocrine & Minimally Invasive Surgery / General Surgery Diagnoses Incontinence of feces Lionel Correia MD [address] [place] [address] Phone: tel: fax: Referral ID Status Reason Start Date Expiration Date V isits Requested Visits Authorized [id number] Closed Specialty Services Required 10/08/2024 04/09/2026 1 1 Encounter Details Date Type Department Care Team (Late st Contact Info) Description 12/30/2024 2:45 PM EDT Office Visit [facility] General Surgery [address] [place] [address] Dwayne Adame MD [address] [place] [address] Pelvic floor dysfunction (Primary Dx) [...] Notes * Progress Notes - Nubia Carrasquillo, SANJUANITA, TRUDI - 12/30/2024 2:45 PM EDT [facility] Colon & Rectal Surgery 12/30/2024 Chief [...] does not follow with a urologist or health information administrator. She has previously seen a physical therapist at [facility] but has limited income and can't make it to [place] regularly for therapy. She has been using [...] does not follow with a urologist or health information administrator. She has previously seen a physical therapist at [facility] but has limited income and can't make it to [place] regularly for therapy. She has been using [...] This Visit None Bowel and bladder dysfunction Nubiamak Carrasquillo APRN, DNP [1] Social History Tobacco [...] Care Team (Late st Contact Info) Description 04/27/2025 11:45 AM EST Appointment [facility] Radiology [address] [place] [address] Scheduled Orders Name Type Priority Associated Diagnoses [...] documented as of this encounter Care Teams Melt House Drag Operator Relationship Specialty Start Date End Date Lulu Noyola PA [address] [place] [address] PCP - General 10/15/20 Giacomo Pereira MD [address] [place] [address] Transplant Physician Transplant Surgery 10/24/20 [place] [address] Surgical Navigator Transplant 10/24/20 Pam Fay RN [facility] [address] [place] [address] Surgical Navigator Transplant Surgery 01/13/21 documented as of this encounter
--- OUTSIDE RECORDS SUMMARY | 2025-02-19 06:35 | XMS_ITS | Encounter Summary ---
Author Organization [facility] Address [address] [place] [address] Care Team Providers Care Turn Down Attendant Name Role Phone Lulu Noyola Primary Care Provider [phone] Giacomo Pereira MD Unavailable Eulalia Purvis Unavailable [phone] Pam Fay RN Unavailable [phone] Encounter Details Date Type Department Care Team (Late st Contact Info) Description 03/24/2019 Legacy OTTR Encounter Historical OTTR [address] [place] [address] Cordelia Haynes [place] [phone] Social History Tobacco Use Types Packs/Day Years [...] - 03/24/2019 1:28 PM EDT LVChirag @ [phone] with 04/16/19 12:15 pm arrival time for labs/MBS/MRI requesting confirmation call. documented in this encounter Plan of Treatment Upcoming Encounters Date Type Department Care Team (Late st Contact Info) Description 04/27/2025 11:45 AM EST Appointment [facility] Radiology [address]st [place] [address] documented as of this encounter Visit Diagnoses Not on filedocumented in this encounter Care Teams Turn Down Attendant Relationship Specialty Start Date End Date Lulu Noyola PA [address] [place] [address] PCP - General 10/15/20 Giacomo Pereira MD [address] [place] [address] Transplant Physician Transplant Surgery 10/24/[address] [place] [address] Surgical Navigator Transplant 10/24/20 Pam Fay, RN CH-TRANSPLANT ADMINISTRATION [address] [place] [address] Surgical Navigator Transplant Surgery 01/13/21 documented as of this encounter
--- OUTSIDE RECORDS SUMMARY | 2025-02-19 06:35 | XMS_ITS | Clinical Summary ---
Author Organization [facility] Address [address] [place] [address] Care Team Providers Care Bale Stacker Name Role Phone Lulu Noyola Primary Care Provider [phone] Giacomo Pereira MD Unavailable Eulalia Purvis Unavailable [phone] Pam Fay RN Unavailable [phone] Allergies Active Allergy Reactions Criticality Noted [...] NOSTRIL EVERY DAY 5 Active HYDROcodone-maia taminophen ([place]) 5-325 MG tablet TAKE ONE TABLET BY [...] Description 12/30/2024 2:45 PM EDT Office Visit [facility] General Surgery [address], [address] [place] [address] Dwayne Adame MD Pelvic floor dysfunction (Primary [...] 12/30/2024 2:07 PM EDT Plan of Treatment Upcoming Encounters Date Type Department Care Team (Late st Contact Info) Description 04/27/2025 11:45 AM EST Appointment [facility] S Radiology [address] [place] [address] Health Maintenance Due Date Last Done Comments [...] - Risk 60-74 years 1-dose series) 2019 [id number] Vaccine (5 - Moderna risk 2023- season) [...] this topic Medical Devices Implanted Type Area Parboiler Device Identifier Shelf Expiration Date Model / Serial / Lot Confirm Rx Implanted: (Quantity not on file) Implantable Loop Recorder Chest [employer] [id number] / [id number] / Insurance [place] Care Teams Bale Stacker Relationship Specialty Start Date End Date Lulu Noyola PA [address] [place] [address] PCP - General 10/15/20 Giacomo Pereira MD [address] [place] [address] Transplant Physician Transplant Surgery 10/24/20 [place] [address] Surgical Navigator Transplant 10/24/20 Pam Fay RN CH-TRANSPLANT ADMINISTRATION [address] [place] [address] Surgical Navigator Transplant Surgery 01/13/21
--- OUTSIDE RECORDS SUMMARY | 2025-02-19 06:35 | XMS_ITS | Encounter Summary ---
Author Organization [facility] Address [address] [place] [address] Care Team Providers Care Investment Banking Manager Name Role Phone Lulu Noyola Primary Care Provider [phone] Giacomo Pereira MD Unavailable Eulalia Purvis Unavailable [phone] Pam Fay RN Unavailable [phone] Encounter Details Date Type Department Care [...] S Radiology [address] 1st [place] [address] documented as of this encounter Visit Diagnoses Not on filedocumented in this encounter Additional Health Concerns Assessment Noted Time A fall risk assessment has been complete d for the patient 12/30/2024 2:07 PM EDT A Body Mass Index follow-up plan has been documented for the patient 01/05/2025 3:20 PM EDT documented as of this encounter Care Teams Investment Banking Manager Relationship Specialty Start Date End Date Lulu Noyola PA [address] [place] [address] PCP - General 10/15/20 Giacomo Pereira MD [address] [place] [phone] Transplant Physician Transplant Surgery 10/24/20 [place] [address] Surgical Navigator Transplant 10/24/20 Pam Fay RN -TRANSPLANT ADMINISTRATION [address] [place] [address] Surgical Navigator Transplant Surgery 01/13/21 documented as of this encounter
--- OUTSIDE RECORDS SUMMARY | 2025-02-19 06:36 | XMS_ITS | Clinical Summary ---
Author Organization 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 USUALLY HAPPENS WITH OVEREXERTION OR ANXIETY. LAST [...] this topic Medical Devices Implanted Type Area Lug Loader Device Identifier Shelf Expiration Date Model / Serial / Lot Knee/Ankle Hardware Loop Recorder Drug Dermatologic 2.5ml Syr Adlt Macroplastique - [id number] Implanted:Qty: 1 on 09/06/2023 by Diana Burkett MD at [facility] N/A: Urethra [employer] 10/29/2024 MPQ-2.5 / / [id number] Drug Dermatologic 2.5ml Syr Adlt Macroplastique - [id number] Implanted:Qty: 1 on 09/06/2023 by Diana Burkett MD at [facility] N/A: Urethra [employer] 11/29/2024 MPQ-2.5 / / [id number] Insurance HU[employer]NA MEDICARE PPO [place]ID [place] [facility] MEDICARE O [place]ID [place] Care Teams Breakdown Worker Relationship Specialty Start Date End Date Devan Lundberg NP [address] [place] [address] PCP - General Nurse Practitioner-Family 08/09/23
--- OUTSIDE RECORDS SUMMARY | 2025-02-19 06:36 | XMS_ITS | Encounter Summary ---
Author Organization [facility] Address [address] [id number] Care Team Providers Care Pipelines Laborer Name Role Phone Lulu Noyola Primary Care Provider [phone] Giacomo Pereira MD Unavailable Eulalia Purvis Unavailable [phone] Pam Fay RN Unavailable [phone] Encounter Details Date Type Department Care Team (Late st Contact Info) Description 03/18/2018 [facility] OTTR Encounter Historical OTTR [address] [place] [address] Pam Fay, RN [facility]ISTRATION [address] [place] [address] Social History Tobacco Use Types Packs/Day Years [...] hours. Auth can be obtained by calling [phone] ref # [id number]. * Progress Notes - Pam Fay RN [...] lesions. Pt. needs MRI liver protocol at [facility], should not be performed elsewhere and needs [...] appt. reminder. Note to for US precert [id number]. * Progress Notes - Pam Fay RN [...] from [facility] - saved in [facility]. * Progress Notes - Enriqueta Villarreal [...] Surgical referral from Mitzy Rose to [facility] - 57 yo woman with multiple liver lesions. Called referring office - spoke to Luana, requested records - Luana will fax these tomorrow when she has the chart. Ms Thrasher was seen by Chaitanya Rose at the specialty clinic in [place] - that clinic does not have any records. Note to HEW/CNT documented in this encounter Plan of Treatment Upcoming Encounters Date Type Department Care Team (Late st Contact Info) Description 04/27/2025 11:45 AM EST Appointment PAV S Radiology [address], 1st [place] [address] documented as of this encounter Procedures Procedure [...] on filedocumented in this encounter Care Teams Pipelines Laborer Relationship Specialty Start Date End Date Lulu Noyola PA [address] [place] [address] PCP - General 10/15/20 Giacomo Pereira MD [address] [place] [address] Transplant Physician Transplant Surgery 10/24/20 [place] [address] Surgical Navigator Transplant 10/24/20 Pam Fay RN [facility] [address] [place] [address] Surgical Navigator Transplant Surgery 01/13/21 documented as of this encounter
--- OUTSIDE RECORDS SUMMARY | 2025-02-19 06:36 | XMS_ITS | Encounter Summary ---
Author Organization [facility] Address [address] [place] [address] Care Team Providers Care Fish Cake Maker Name Role Phone Lulu Noyola Primary Care Provider [phone] Giacomo Pereira MD Unavailable Eulalia Purvis Unavailable [phone] Pam Fay RN Unavailable [phone] Encounter Details Date Type Department Care Team [...] S Radiology [address], 1st [place] [address] documented as of this encounter Visit Diagnoses Not on filedocumented in this encounter Care Teams Fish Cake Maker Relationship Specialty Start Date End Date Lulu Noyola PA [address] [place] [address] PCP - General 10/15/20 Giacomo Pereira MD [address] [place] [address] Transplant Physician Transplant Surgery 10/24/20 [place] [address] Surgical Navigator Transplant 10/24/20 Pam Fay RN [facility]IST[facility] [address] [place] [address] Surgical Navigator Transplant Surgery 01/13/21 documented as of this encounter
--- OUTSIDE RECORDS SUMMARY | 2025-02-19 06:36 | XMS_ITS | Encounter Summary ---
Author Organization [facility] Address [address] [place] [address] Care Team Providers Care Operator Maintainer Name Role Phone Lulu Noyola Primary Care Provider [phone] Giacomo Pereira MD Unavailable Eulalia Purvis Unavailable [phone] Pam Fay RN Unavailable [phone] Encounter Details Date Type Department Care Team (Late st Contact Info) Description 03/14/2019 Legacy OTTR Encounter Historical OTTR [address] [place] [address] [address] [place] [address] Social History Tobacco Use Types Packs/Day [...] DOS 04/16/2019 MRI Abdomen w wo contrast 55794 1. [employer] Medicare auth approved auth # [id number] valid dates 04/16/2019-05/16/2019 updating IAuth and nurse. documented in this encounter Plan of Treatment Upcoming Encounters Date Type Department Care Team (Late st Contact Info) Description 04/27/2025 11:45 AM EST Appointment PAV S Radiology [address], 1st [place] [address] documented as of this encounter Visit Diagnoses Not on filedocumented in this encounter Care Teams Operator Maintainer Relationship Specialty Start Date End Date Lulu Noyola PA [address] [place] [address] PCP - General 10/15/20 Giacomo Pereira MD [address] [place] [address] Transplant Physician Transplant Surgery 10/24/20 [place] [address] Surgical Navigator Transplant 10/24/20 Pam Fay RN [facility]MINISTRATION [address] [place] [address] Surgical Navigator Transplant Surgery 01/13/21 documented as of this encounter
--- OUTSIDE RECORDS SUMMARY | 2025-02-19 06:36 | XMS_ITS | Encounter Summary ---
Author Organization [facility] Address [address] [place] [address] Care Team Providers Care Bods Developer Name Role Phone Lulu Noyola Primary Care Provider [phone] Giacomo Pereira MD Unavailable Eulalia Purvis Unavailable [phone] Pam Fay RN Unavailable [phone] Encounter Details Date Type Department Care Team (Late st Contact Info) Description 03/13/2019 Legacy OTTR Encounter Historical OTTR [address] [place] [address] [place] [address] Social History Tobacco Use Types Packs/Day Years [...] - 03/13/2019 2:59 PM EDT LVM @ [phone] with 04/16/19 12:15 pm arrival time for labs/MBS/MRI requesting confirmation call. Appt schedule mailed. Note to for precert update on rescheduled MRI from 03/12/19. documented in this encounter Plan of Treatment Upcoming Encounters Date Type Department Care Team (Late st Contact Info) Description 04/27/2025 11:45 AM EST Appointment PAV S Radiology [address], 1st [place] [address] documented as of this encounter Visit Diagnoses Not on filedocumented in this encounter Care Teams Bods Developer Relationship Specialty Start Date End Date Lulu Noyola PA [address] [place] [address] PCP - General 10/15/20 Giacomo Pereira MD [address] [place] [address] Transplant Physician Transplant Surgery 10/24/20 [place] [address] Surgical Navigator Transplant 10/24/20 Pam Fay RN [facility]MINISTRATION [address] [place] [address] Surgical Navigator Transplant Surgery 01/13/21 documented as of this encounter
--- OUTSIDE RECORDS SUMMARY | 2025-02-19 06:36 | XMS_ITS | Encounter Summary ---
Author Organization [facility] Address [address] [place] [address] Care Team Providers Care Solar Installer Pv Name Role Phone Lulu Noyola Primary Care Provider [phone] Giacomo Pereira MD Unavailable Eulalia Purvis Unavailable [phone] Pam Fay RN Unavailable [phone] Encounter Details Date Type Department Care Team (Late st Contact Info) Description 11/26/2018 Legacy OTTR Encounter Historical OTTR [address] [place] [address] [place] [address] Social History Tobacco Use Types Packs/Day Years [...] Department Care Team (Late Contact Info) Description 04/27/2025 11:45 AM EST Appointment PAV S Radiology [address], 1st [place] [address] documented as of this encounter Visit Diagnoses Not on filedocumented in this encounter Care Teams Solar Installer Pv Relationship Specialty Start Date End Date Lulu Noyola PA [address] [place] [address] PCP - General 10/15/20 Giacomo Pereira MD [address] [facility] [address] [place] [phone] Transplant Physician Transplant Surgery 10/24/20 [place] [address] Surgical Navigator Transplant 10/24/20 Pam Fay RN [facility]ISTR[facility] [address] [place] [address] Surgical Navigator Transplant Surgery 01/13/21 documented as of this encounter
--- OUTSIDE RECORDS SUMMARY | 2025-02-19 06:36 | XMS_ITS | Encounter Summary ---
Author Organization [facility] Address [address] [place] [address] Care Team Providers Care Transportation Inspector Name Role Phone Lulu Noyola Primary Care Provider [phone] Giacomo Pereira MD Unavailable Eulalia Purvis Unavailable [phone] Pam Fay RN Unavailable [phone] Encounter Details Date Type Department Care Team (Late st Contact Info) Description 03/12/2019 Legacy OTTR Encounter Historical OTTR [address] [place] [address] Eulalia Purvis [address] [id number] Social History Tobacco Use Types Packs/Day Years [...] EST Appointment PAV S Radiology [address] 1st [place] [address] documented as of this encounter Visit Diagnoses Not on filedocumented in this encounter Care Teams Transportation Inspector Relationship Specialty Start Date End Date Lulu Noyola PA [address] [place] [address] PCP - General 10/15/20 Giacomo Pereira MD [address] [facility] [address] [place] [address] Transplant Physician Transplant Surgery 10/24/20 [place] [address] Surgical Navigator Transplant 10/24/20 Pam Fay RN [facility]PLANT ADMINISTRATION [address] [place] [address] Surgical Navigator Transplant Surgery 01/13/21 documented as of this encounter
--- OUTSIDE RECORDS SUMMARY | 2025-02-19 06:36 | XMS_ITS | Encounter Summary ---
Author Organization [facility] Address [address] [place] [address] Care Team Providers Care Piece Goods Clerk Name Role Phone Lulu Noyola Primary Care Provider [phone] Giacomo Pereira MD Unavailable Eulalia Purvis Unavailable [phone] Pam Fay RN Unavailable [phone] Encounter Details Date Type Department Care Team (Late st Contact Info) Description 02/11/2019 Legacy OTTR Encounter Historical OTTR [address] [place] [address] [address] [place] [address] Social History Tobacco Use Types Packs/Day [...] DOS 03/12/2019 MRI Abdomen w wo contrast 86494 1. [employer] Medicare auth approved auth # [id number] valid dates 03/12/2019-04/12/2019 documented in this encounter Plan of Treatment Upcoming Encounters Date Type Department Care Team (Late st Contact Info) Description 04/27/2025 11:45 AM EST Appointment PAV S Radiology [address] 1st [place] [address] documented as of this encounter Visit Diagnoses Not on filedocumented in this encounter Care Teams Piece Goods Clerk Relationship Specialty Start Date End Date Lulu Noyola PA [address] [place] [address] PCP - General 10/15/20 Giacomo Pereira MD [address] [place] [address] Transplant Physician Transplant Surgery 10/24/20 [place] [address] Surgical Navigator Transplant 10/24/20 Pam Fay RN CH[facility]PLANT ADMINISTRATION [address] [place] [address] Surgical Navigator Transplant Surgery 01/13/21 documented as of this encounter
--- OUTSIDE RECORDS SUMMARY | 2025-02-19 06:36 | XMS_ITS | Encounter Summary ---
Author Organization [facility] Address [address] [place] [address] Care Team Providers Care Monomer Recovery Operator Name Role Phone Lulu Noyola Primary Care Provider [phone] Giacomo Pereira MD Unavailable Eulalia Purvis Unavailable [phone] Pam Fay RN Unavailable [phone] Encounter Details Date Type Department Care Team (Latest Contact Info) Description 10/03/2024 Community [facility] [address] [place] [address] Lionel Correia MD [address] [place], [place] [id number] Urinary incontinence, unspecified type (Primary Dx); Full [...] S Radiology [address], 1st [place] [address] documented as of this encounter Visit Diagnoses Diagnosis Urinary incontinence, unspecified type- Primary Full incontinence of feces documented in this encounter Care Teams Monomer Recovery Operator Relationship Specialty Start Date End Date Lulu Noyola PA [address] [place] [address] PCP - General 10/15/20 Giacomo Pereira MD [address] [facility] [address] [place] [address] Transplant Physician Transplant Surgery 10/24/20 [place] [address] Surgical Navigator Transplant 10/24/20 Pam Fay, RN [facility]PL[facility]MINISTRATION [address] [place] [address] Surgical Navigator Transplant Surgery 01/13/21 documented as of this encounter
== END ==
LOC: SL 06:33
PROVIDERS: PCP Nurse Practitioner; Visit Provider Nurse Practitioner
DX: G47.33 Obstructive sleep apnea (adult) (pediatric) (principal); I25.118 Atherosclerotic heart disease of native coronary artery with other forms of angina pectoris; I10 Essential (primary) hypertension; R94.39 Abnormal result of other cardiovascular function study; R55 Syncope and collapse; R42 Dizziness and giddiness
CPT/HCPCS: G0399

== ENCOUNTER 2025-03-02 11:05 | Outpatient (CLI) | payer MEDICARE, MEDICAID, SELFPAY ==
--- OUTSIDE RECORDS SUMMARY | 2025-03-02 11:14 | XMS_ITS | Encounter Summary ---
Author Organization [facility] Address [address] [place] [address] Care Team Providers Care City Magistrate Name Role Phone Lulu Noyola Primary Care Provider [phone] Giacomo Pereira MD Unavailable Eulalia Purvis Unavailable [phone] Pam Fay RN Unavailable [phone] Encounter Details Date Type Department Care Team (Latest Contact Info) Description 10/03/2024 Community [facility] Community Practice [address] [place] [address] Lionel Correia MD [address] [place], [place] [phone] Urinary incontinence, unspecified type (Primary Dx); Full [...] S Radiology [address], 1st [place] [address] documented as of this encounter Visit Diagnoses Diagnosis Urinary incontinence, unspecified type- Primary Full incontinence of feces documented in this encounter Care Teams City Magistrate Relationship Specialty Start Date End Date Lulu Noyola PA [address] [place] [address] PCP - General 10/15/20 Giacomo Pereira MD [address] [facility] [address] [place] [address] Transplant Physician Transplant Surgery 10/24/20 [place] [address] Surgical Navigator Transplant 10/24/20 Pam Fay, RN [facility]TRANSPLANT ADMINISTRATION [address] [place] [address] Surgical Navigator Transplant Surgery 01/13/21 documented as of this encounter
--- OUTSIDE RECORDS SUMMARY | 2025-03-02 11:14 | XMS_ITS | Encounter Summary ---
Author Organization [facility] Address [address] [place] [address] Care Team Providers Care Estate Conservator Name Role Phone Lulu Noyola Primary Care Provider [phone] Giacomo Pereira MD Unavailable Eulalia Purvis Unavailable [phone] Pam Fay RN Unavailable [phone] Encounter Details Date Type Department Care Team (Late st Contact Info) Description 03/24/2019 Legacy OTTR Encounter Historical OTTR [address] [place] [address] [address] [place] [id number] Social History Tobacco Use Types Packs/Day Years [...] - 03/24/2019 1:28 PM EDT LVChirag @ [phone] with 04/16/19 12:15 pm arrival time for labs/MBS/MRI requesting confirmation call. documented in this encounter Plan of Treatment Upcoming Encounters Date Type Department Care Team (Late st Contact Info) Description 04/27/2025 11:45 AM EST Appointment PAV S Radiology [address], 1st [place] [address] documented as of this encounter Visit Diagnoses Not on filedocumented in this encounter Care Teams Estate Conservator Relationship Specialty Start Date End Date Lulu Noyola PA [address] [place] [address] PCP - General 10/15/20 Giacomo Pereira MD [address] [place] [address] Transplant Physician Transplant Surgery 10/24/20 [place] [address] Surgical Navigator Transplant 10/24/20 Pam Fay, RN [facility]TRANSPLANT ADMINISTRATION [address] [place] [address] Surgical Navigator Transplant Surgery 01/13/21 documented as of this encounter
--- OUTSIDE RECORDS SUMMARY | 2025-03-02 11:14 | XMS_ITS | Clinical Summary ---
Author Organization [facility] Address [address] [place] [address] Care Team Providers Care Bookstore Clerk Name Role Phone Lulu Noyola Primary Care Provider [phone] Giacomo Pereira MD Unavailable Eulalia Purvis Unavailable [phone] Pam Fay RN Unavailable [phone] Allergies Active Allergy Reactions Criticality Noted [...] NOSTRIL EVERY DAY 5 Active HYDROcodone-maia taminophen ([place]) 5-325 MG tablet TAKE ONE TABLET BY [...] Description 12/30/2024 2:45 PM EDT Office Visit [facility] General Surgery [address], [address]st [place] [address] Dwayne Adame MD Pelvic floor dysfunction (Primary [...] EST Appointment PAV S Radiology [address], 1st [place] [address] Health Maintenance Due Date Last [...] - Risk 60-74 years 1-dose series) 2019 [id number] Vaccine (5 - Moderna risk 2023- season) [...] this topic Medical Devices Implanted Type Area Chemistry Account Manager Device Identifier Shelf Expiration Date Model / Serial / Lot Confirm Rx Implanted: (Quantity not on file) Implantable Loop Recorder Chest [employer] [id number] / [id number] / Insurance MEDICAID-[place] AETNA MEDICARE Care Teams Bookstore Clerk Relationship Specialty Start Date End Date Lulu Noyola PA [address] [place] [address] PCP - General 10/15/20 Giacomo Pereira MD [address] [place] [address] Transplant Physician Transplant Surgery 10/24/20 [place] [address] Surgical Navigator Transplant 10/24/20 Pam Fay RN [facility]PLANT ADMINISTRATION [address] [place] [address] Surgical Navigator Transplant Surgery 01/13/21
--- OUTSIDE RECORDS SUMMARY | 2025-03-02 11:15 | XMS_ITS | Encounter Summary ---
Author Organization [facility] Address [address] [place] [address] Care Team Providers Care Pattern Worker Name Role Phone Lulu Noyola Primary Care Provider [phone] Giacomo Pereira MD Unavailable Eulalia Purvis Unavailable [phone] Pam Fay RN Unavailable [phone] Encounter Details Date Type Department Care Team (Late st Contact Info) Description 02/11/2019 Legacy OTTR Encounter Historical OTTR [address] [place] [address] Provider[address] [place] [address] Social History Tobacco Use Types Packs/Day [...] DOS 03/12/2019 MRI Abdomen w wo contrast 52789 1. [employer] Medicare auth approved auth # [id number] valid dates 03/12/2019-04/12/2019 documented in this encounter Plan of Treatment Upcoming Encounters Date Type Department Care Team (Late st Contact Info) Description 04/27/2025 11:45 AM EST Appointment PAV S Radiology [address] 1st [place] [address] documented as of this encounter Visit Diagnoses Not on filedocumented in this encounter Care Teams Pattern Worker Relationship Specialty Start Date End Date Lulu Noyola PA [address] [place] [address] PCP - General 10/15/20 Giacomo Pereira MD [address] [place] [address] Transplant Physician Transplant Surgery 10/24/20 [place] [address] Surgical Navigator Transplant 10/24/20 Pam Fay RN [facility]PLANT ADMINISTRATION [address] [place] [address] Surgical Navigator Transplant Surgery 01/13/21 documented as of this encounter
--- OUTSIDE RECORDS SUMMARY | 2025-03-02 11:15 | XMS_ITS | Encounter Summary ---
Author Organization [facility] Address [address] [place] [address] Care Team Providers Care Senior Producer Name Role Phone Lulu Noyola Primary Care Provider [phone] Giacomo Pereira MD Unavailable Eulalia Purvis Unavailable [phone] Pam Fay RN Unavailable [phone] Encounter Details Date Type Department Care Team (Late st Contact Info) Description 03/14/2019 Legacy OTTR Encounter Historical OTTR [address] [place] [address] Provider[address] [place] [address] Social History Tobacco Use Types Packs/Day [...] DOS 04/16/2019 MRI Abdomen w wo contrast 15088 1. [employer] Medicare auth approved auth # [id number] valid dates 04/16/2019-05/16/2019 updating IAuth and nurse. documented in this encounter Plan of Treatment Upcoming Encounters Date Type Department Care Team (Late st Contact Info) Description 04/27/2025 11:45 AM EST Appointment PAV S Radiology [address] 1st [place] [address] documented as of this encounter Visit Diagnoses Not on filedocumented in this encounter Care Teams Senior Producer Relationship Specialty Start Date End Date Lulu Noyola PA [address] [place] [address] PCP - General 10/15/20 Giacomo Pereira MD [address] [place] [address] Transplant Physician Transplant Surgery 10/24/20 [place] [address] Surgical Navigator Transplant 10/24/20 Pam Fay RN [facility]PLANT ADMINISTRATION [address] [place] [address] Surgical Navigator Transplant Surgery 01/13/21 documented as of this encounter
--- OUTSIDE RECORDS SUMMARY | 2025-03-02 11:15 | XMS_ITS | Encounter Summary ---
Author Organization [facility] Address [address] [place] [address] Care Team Providers Care Peoplesoft Crm Developer Name Role Phone Lulu Noyola Primary Care Provider [phone] Giacomo Pereira MD Unavailable Eulalia Purvis Unavailable [phone] Pam Fay RN Unavailable [phone] Encounter Details Date Type Department Care Team (Late st Contact Info) Description 11/26/2018 Legacy OTTR Encounter Historical OTTR [address] [place] [address] [place] [address] Social History Tobacco Use Types Packs/Day Years [...] EST Appointment PAV S Radiology [address] 1st [place] [address] documented as of this encounter Visit Diagnoses Not on filedocumented in this encounter Care Teams Peoplesoft Crm Developer Relationship Specialty Start Date End Date Lulu Noyola PA [address] [place] [address] PCP - General 10/15/20 Giacomo Pereira MD [address] [facility] [address] [place] [phone] Transplant Physician Transplant Surgery 10/24/20 [place] [address] Surgical Navigator Transplant 10/24/20 Pam Fay RN CH[facility]TR[facility]PLANT ADMINISTRATION [address] [place] [address] Surgical Navigator Transplant Surgery 01/13/21 documented as of this encounter
--- OUTSIDE RECORDS SUMMARY | 2025-03-02 11:15 | XMS_ITS | Clinical Summary ---
Author Organization 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 USUALLY HAPPENS WITH OVEREXERTION OR ANXIETY. LAST [...] Exam Medicare 1962 Hepatitis C Screening 1977 Breast Cancer Screening 1999 Cologuard 02/29/2004 Colon [...] this topic Medical Devices Implanted Type Area Waistline Joiner Overlock Device Identifier Shelf Expiration Date Model / Serial / Lot Knee/Ankle Hardware Loop Recorder Drug Dermatologic 2.5ml Syr Adlt Macroplast[employer] - [id number] Implanted:Qty: 1 on 09/06/2023 by Diana Burkett MD at [facility] N/A: Urethra [employer] 10/29/2024 MPQ-2.5 / / [id number] Drug Dermatologic 2.5ml Syr Adlt Macroplastique - [id number] Implanted:Qty: 1 on 09/06/2023 by Diana Burkett MD at [facility] N/A: Urethra [employer] 11/29/2024 MPQ-2.5 / / [id number] Insurance HU[employer] MEDICARE [place]PO [place] HU[employer] [place]IC[place] Care Teams Municipal Firefighter Relationship Specialty Start Date End Date Devan Lundberg NP [address] [id number] PCP - General Nurse Practitioner-Family 08/09/23
--- OUTSIDE RECORDS SUMMARY | 2025-03-02 11:15 | XMS_ITS | Encounter Summary ---
Author Organization [facility] Address [address] [place] [address] Care Team Providers Care Framing Carpenter Name Role Phone Lulu Noyola Primary Care Provider [phone] Giacomo Pereira MD Unavailable Eulalia Purvis Unavailable [phone] Pam Fay RN Unavailable [phone] Encounter Details Date Type Department Care Team (Late st Contact Info) Description 03/13/2019 [facility] Encounter Historical OTTR [address] [place] [address] [place] [address] Social History Tobacco Use Types Packs/Day Years [...] - 03/13/2019 2:59 PM EDT LVM @ [phone] with 04/16/19 12:15 pm arrival time for labs/MBS/MRI requesting confirmation call. Appt schedule mailed. Note to for precert update on rescheduled MRI from 03/12/19. documented in this encounter Plan of Treatment Upcoming Encounters Date Type Department Care Team (Late st Contact Info) Description 04/27/2025 11:45 AM EST Appointment [facility] Radiology [address] [place] [address] documented as of this encounter Visit Diagnoses Not on filedocumented in this encounter Care Teams Framing Carpenter Relationship Specialty Start Date End Date Lulu Noyola PA [address] [place] [address] PCP - General 10/15/20 Giacomo Pereira MD [address] [place] [address] Transplant Physician Transplant Surgery 10/24/20 [place] [address] Surgical Navigator Transplant 10/24/20 Pam Fay RN [facility] [address] [place] [address] Surgical Navigator Transplant Surgery 01/13/21 documented as of this encounter
--- OUTSIDE RECORDS SUMMARY | 2025-03-02 11:15 | XMS_ITS | Encounter Summary ---
Author Organization [facility] Address [address] [id number] Care Team Providers Care Welding Machine Operator Resistance Name Role Phone Lulu Noyola Primary Care Provider [phone] Giacomo Pereira MD Unavailable Eulalia Purvis Unavailable [phone] Pam Fay RN Unavailable [phone] Encounter Details Date Type Department Care Team (Late st Contact Info) Description 03/18/2018 [facility] OT[facility] Encounter Historical OTTR [address] [place] [address] Pam Fay, RN [facility] [address] [place] [address] Social History Tobacco Use Types Packs/Day Years [...] hours. Auth can be obtained by calling [phone] ref # [id number]. * Progress Notes - Pam Fay RN [...] lesions. Pt. needs MRI liver protocol at [facility], should not be performed elsewhere and [...] appt. reminder. Note to for US precert [id number]. * Progress Notes - Pam Fay RN [...] are AVM's. * Progress Notes - Pam Fya RN - 01/24/2018 1:57 PM EDT Pt. [...] 2:44 PM EDT Radiology reports received from [facility] - saved in [facility]. * Progress Notes - Enriqueta Villarreal - 01/16/2018 9:59 AM EDT CD images received from [facility] - downloaded to PACS. * Progress [...] EDT Faxed request for cd images to [facility] for fedex priority shipping. Records received fromChaitanya Rose's office - saved in [employer]. * Progress Notes - Enriqueta Villarreal E - 01/14/2018 3:32 PM EDT Surgical referral from Mitzy Rose to [facility] - 57 yo woman with multiple liver lesions. Called referring office - spoke to Luana, requested records - Luana will fax these tomorrow when she has the chart. Ms Thrasher was seen by Chaitanya Rose at the specialty clinic in [place] - that clinic does not have any records. Note to HEW/CNT documented in this encounter Plan of Treatment Upcoming Encounters Date Type Department Care Team (Late st Contact Info) Description 04/27/2025 11:45 AM EST Appointment [facility] Radiology [address] [place] [address] documented as of this encounter [...] on filedocumented in this encounter Care Teams Welding Machine Operator Resistance Relationship Specialty Start Date End Date Lulu Noyola PA [address] [place] [address] PCP - General 10/15/20 Giacomo Pereira MD [address] [place] [address] Transplant Physician Transplant Surgery 10/24/20 [place] [address] Surgical Navigator Transplant 10/24/20 Pam Fay RN [facility] [address] [place] [address] Surgical Navigator Transplant Surgery 01/13/21 documented as of this encounter
--- OUTSIDE RECORDS SUMMARY | 2025-03-02 11:15 | XMS_ITS | Encounter Summary ---
Author Organization [facility] Address [address] [place] [address] Care Team Providers Care Radiator Mechanic Name Role Phone Lulu Noyola Primary Care Provider [phone] Giacomo Pereira MD Unavailable Eulalia Purvis Unavailable [phone] Pam Fay RN Unavailable [phone] Encounter Details Date Type Department Care Team (Late st Contact Info) Description 03/12/2019 [facility] OTTR Encounter Historical OTTR [address] [place] [address] Eulalia Purvis [place] [id number] Social History Tobacco Use Types Packs/Day Years [...] EST Appointment [facility] S Radiology [address] [place] [address] documented as of this encounter Visit Diagnoses Not on filedocumented in this encounter Care Teams Radiator Mechanic Relationship Specialty Start Date End Date Lulu Noyola PA [address] [place] [address] PCP - General 10/15/20 Giacomo Pereira MD [address] [facility] [address] [place] [phone] Transplant Physician Transplant Surgery 10/24/20 [place] [address] Surgical Navigator Transplant 10/24/20 Pam Fay RN [facility] [address] [place] [address] Surgical Navigator Transplant Surgery 01/13/21 documented as of this encounter
[2025-03-02 13:05] LABS: Thyroid Stimulating Hormone 1.00 uIU/mL (0.465-4.68)
== END 2025-03-02 23:59 | disposition home or self-care (01) ==
LOC: LAB 11:06
PROVIDERS: PCP Nurse Practitioner Family; Visit Provider Nurse Practitioner Obstetrics & Gynecology
DX: L65.9 Nonscarring hair loss, unspecified (principal)
CPT/HCPCS: 36415; 84443

== ENCOUNTER 2025-03-06 07:01 | Day surgery (SDC) | payer MEDICARE, MEDICAID, SELFPAY ==
[2025-03-06] VITALS (14 sets, daily range): BP systolic 55–119; BP diastolic 50–77; PULSE 50–67; RESP 13–20; TEMP 36.1; O2SAT 97–100; BMI 14.4
--- NOTE | 2025-03-06 07:31 | IR_ITS ---
APPROVED REPORT Patient Location: Outpatient Respite Worker: ELY Bloom RT (R) PROCEDURES Left heart catheterization Left ventriculogram Selective coronary angiogram INDICATION Abnormal Myoview, Angina pectoris Informed consent was obtained prior to the procedure. COMPLICATIONS NONE Estimated Blood Loss: LESS THAN 10 ML TECHNIQUE One percent lidocaine used to anesthetize the right anterior aspect of the wrist. The right radial artery was accessed via the Seldinger technique. A 6 Taiwanese sheath was placed in the right radial artery. 2.5 mg of Verapamil, 800 mcg of nitroglycerin, 1mg Lidocaine and 5000 U Heparin were given through the arterial sheath. The JL3 catheter was also used to perform left heart catheterization, left ventriculogram and selective coronary angiogram. At the end of the procedure the sheath was removed good hemostasis was achieved using Traclet band, patient was transferred to the postop holding area in stable condition. ANGIOGRAPHIC RESULTS The left main artery Normal The left anterior descending artery Proximally normal with mid vessel 40% concentric stenoses along tortuous bends in a caliber vessel 2 mm in diameter The circumflex artery Dominant 10% mild luminal irregularities The right coronary artery Nondominant 10% luminal regularities The DURAN ventriculogram reveals Normal 65% The left ventricular end-diastolic pressure 10 to 15 mmHg IMPRESSION Moderate mid LAD disease in a small caliber vessel along tortuous bends which is best managed medically Normal ejection fraction Normal LVEDP PLAN 1. Aggressive risk factor modification with maximizing antianginal medication Electronically signed by : Dayron Chilel MD 03/06/2025 08:26:11
[2025-03-06 07:34] LABS: Hematocrit 41.7 % (37.0-47.0); Hemoglobin 13.4 g/dL (12.2-16.2); Immature Granulocytes % 0.2 %; Mean Corpuscular HGB Conc 32.1 g/dL (31.8-35.4); Mean Corpuscular Hemoglobin 30.2 pg (27.0-31.2); Mean Corpuscular Volume 94.1 fl (81-99); Nucleated Red Blood Cells % 0 %; Platelet Count 237 K/mm3 (142-424); Red Blood Count 4.43 M/mm3 (4.20-5.40); Red Cell Distribution Width-SD 47.5 fL; White Blood Count 4.3 K/mm3 (4.8-10.8)
[2025-03-06] MEDS: 0.9 % SODIUM CHLORIDE 500 ML 25 ML IV (07:49)
[2025-03-06] MEDS: NITROGLYCERIN 800MCG/8ML SYR (CATH LAB) 800 MCG IA (07:49)
[2025-03-06] MEDS: HEPARIN 1,000 UNITS/500ML NS (CATH LAB) 3000 UNIT IV (07:49)
[2025-03-06] MEDS: HEPARIN 1,000 UNITS/ML 10ML VIAL (CATH LAB) 5000 UNIT IV (07:49)
[2025-03-06] MEDS: LIDOCAINE 1% 10ML MDV 10 ML IJ (07:49)
[2025-03-06 07:50] LABS: Chloride 102 mmol/L (98-107); Potassium 3.6 mmoL/L (3.5-5.1); Sodium 137 mmol/L (136-145)
[2025-03-06] MEDS: VERAPAMIL 2.5MG/ML 2ML VIAL 2.5 MG IV (07:50)
[2025-03-06 07:53] LABS: Blood Urea Nitrogen 22 mg/dl (7-17); Creatinine Clearance Estimated 33 mL/min (50-200); Creatinine,Serum 0.80 mg/dl (0.52-1.04); Estimated Glomerular Filt Rate 72 ml/min (>60); GFR (African American) 87 ML/MIN (>60)
[2025-03-06 07:54] LABS: Anion Gap 9.6 mEq/L (5-15); Calcium 9.7 mg/dl (8.4-10.2); Carbon Dioxide 29 mmol/L (22.0-30.0); Glucose 91 mg/dl (74-100)
[2025-03-06] MEDS: FENTANYL 100MCG/2ML VIAL 25 MCG IV (08:18)
[2025-03-06] MEDS: MIDAZOLAM HCL 1MG/ML 5ML VIAL 1 MG IV (08:18)
[2025-03-06] MEDS: IOPAMIDOL-370 (76%);100ML BOTTLE 50 ML IV (10:34)
== END 2025-03-06 11:47 | disposition home or self-care (01) ==
PROVIDERS: PCP Nurse Practitioner Family; Visit Provider Internal Medicine
PROC: 4A023N7 Measurement of Cardiac Sampling and Pressure, Left Heart, Percutaneous Approach (ICD-10-PCS; CPT 93452; principal; 2025-03-06 07:15)
DX: I25.118 Atherosclerotic heart disease of native coronary artery with other forms of angina pectoris (principal); R94.39 Abnormal result of other cardiovascular function study; R55 Syncope and collapse; I10 Essential (primary) hypertension; E78.2 Mixed hyperlipidemia; R42 Dizziness and giddiness; G47.33 Obstructive sleep apnea (adult) (pediatric); J44.89 Other specified chronic obstructive pulmonary disease; K21.9 Gastro-esophageal reflux disease without esophagitis; H91.93 Unspecified hearing loss, bilateral; E03.9 Hypothyroidism, unspecified; K76.9 Liver disease, unspecified; I47.10 Supraventricular tachycardia, unspecified; Z85.850 Personal history of malignant neoplasm of thyroid; Z87.891 Personal history of nicotine dependence; Z79.82 Long term (current) use of aspirin; Z79.890 Hormone replacement therapy; Z79.51 Long term (current) use of inhaled steroids; Z88.8 Allergy status to other drugs, medicaments and biological substances; Z82.3 Family history of stroke; Z82.49 Family history of ischemic heart disease and other diseases of the circulatory system
CPT/HCPCS: 80048; 85025; 93458; 99152; C1725; C1769; J1200; J1644; J2003; J3010; J7040; Q9967